=== PATIENT | male | born 1980 | race Caucasian/White ===

== ENCOUNTER 2020-01-14 14:58 | Observation (INO) ==
[2020-01-14] MEDS ORDERED: MoRPHine SULFATE 4 MG/ML 1 ML CARP\\VIAL IV STA (15:14)
[2020-01-14] MEDS ORDERED: ONDANSETRON INJ 2 MG/ML 2 ML VIAL IV STA (15:14)
[2020-01-14 15:38] LABS: Basophils # (auto) 0.02 K/uL (0-0.2); Basophils % (auto) 0.2 %; Eosinophils # (auto) 0.09 K/uL (0-0.5); Eosinophils % (auto) 0.7 %; Hematocrit (blood only) 33.9 % (42-52); Hemoglobin 11.6 g/dL (14.0-18.0); Immature Granulocytes # (auto) 0.04 K/uL (0.00-0.02); Immature Granulocytes % (auto) 0.3 %; Lymphocytes # (auto) 2.03 K/uL (1.2-3.4); Lymphocytes % (auto) 15.4 %; Mean Corpuscular Hemoglobin 29.4 pg (25-34); Mean Corpuscular Hgb Conc 34.2 g/dL (32-36); Mean Platelet Volume 12.5 fL (7.4-10.4); Monocytes # (auto) 0.75 K/uL (0.11-0.59); Monocytes % (auto) 5.7 %; Neutrophils # (auto) 10.21 K/uL (1.4-6.5); Neutrophils % (auto) 77.7 %; Platelet Count 207 K/uL (130-400); RDW Coefficient of Variation 12.2 % (11.5-14.5); RDW Standard Deviation 38.2 fL (36.4-46.3); Red Blood Count 3.94 M/uL (4.7-6.1); White Blood Count 13.14 K/uL (4.8-10.8)
[2020-01-14] MEDS ORDERED: SODIUM CHLORIDE 0.9% 1000ML 1,000 ML IV SCH (15:45)
[2020-01-14 16:05] LABS: Albumin Globulin Ratio 0.4 (0.9-2); Albumin Level 2.2 gm/dl (3.4-5.0); BUN Creatinine Ratio 10.8 (10-20); Bilirubin,Total 0.4 mg/dl (0.2-1); C Reactive Protein 13.1 mg/dl (0-0.29); Creatinine Clr Calc Pharmacy 46.9 ml/min; Est GFR (Non-African American) 24.1; Globulin 4.9 gm/dl (2.5-4.0); Potassium 4.9 mmol/L (3.5-5.1); Total Protein 7.1 gm/dl (6.4-8.2)
[2020-01-14 16:21] LABS: Beta-Hydroxybutyrate 2.04 mg/dl (0.2-2.81)
--- NOTE | 2020-01-14 17:21 | Ultrasound Report ---
US venous doppler LE LT CLINICAL HISTORY: Left leg redness pain and swelling COMPARISON STUDY: No previous studies for comparison. FINDINGS: Real-time and color flow Doppler imaging were performed. Flow was seen within the femoral, popliteal and calf veins with no intraluminal thrombus demonstrated. The saphenous vein is patent. IMPRESSION: No evidence of left lower extremity DVT. ACT 112: Negative or not required by law. Electronically signed by: Denton Patton M.D. 01/14/2020 5:20 PM
[2020-01-14] MEDS ORDERED: cefTRIAXone SODIUM 2,000 MG/70 ML BAG IV STA (17:26)
[2020-01-14] MEDS ORDERED: NovoLIN-R INSULIN PER UNIT CHARGE SC STA (17:26)
[2020-01-14] MEDS ORDERED: CEFEPIME 2,000 MG/20 ML VIAL IV STA (17:45)
[2020-01-14] MEDS ORDERED: GLUCOSE 40% GEL 15 GM TUBE PO PRN (18:45)
[2020-01-14] MEDS ORDERED: CARBOHYDRATES FOR HYPOGLYCEMIA PO PRN (18:45)
[2020-01-14] MEDS ORDERED: ACETAMINOPHEN 325 MG TAB PO PRN (18:45)
[2020-01-14] MEDS ORDERED: GLUCAGON FOR INJ 1 MG VIAL SQ PRN (18:45)
[2020-01-14] MEDS ORDERED: GLUCOSE 10 TABS/TUBE PO PRN (18:45)
[2020-01-14] MEDS ORDERED: MoRPHine SULFATE 2 MG/ML CARP IV PRN (18:45)
[2020-01-14] MEDS ORDERED: DEXTROSE 50% 50 ML SYRINGE IV PRN (18:45)
[2020-01-14] MEDS ORDERED: ONDANSETRON INJ 2 MG/ML 2 ML VIAL IV PRN (18:50)
[2020-01-14] MEDS ORDERED: ALPRAZolam 0.5 MG TABLET PO PRN (18:51)
[2020-01-14 19:13] LABS: Appearance Urine Clear (Clear); Bacteria Urine Automated Negative (Negative); Bilirubin Urine Negative (Negative); Blood Urine 1+ (Negative); Cast Urine Automated 0 /lpf (0-5); Color Urine Yellow; Epithelial Cell Urine Auto 0-5 /lpf (0-5); Glucose Urine UA 3+ (Negative); Ketones Urine Negative (Negative); Leukocyte Esterase Urine Negative (Negative); Nitrite Urine Negative (Negative); Protein Urine 3+ (Negative); RBC Urine Automated 0-4 /hpf (0-4); Specific Gravity Urine 1.024 (1.000-1.030); Urobilinogen Urine Negative (Negative)
--- NOTE | 2020-01-14 19:26 | History & Physical Report ---
Date of Service January 14, 2020 Assessment & Plan (1) Cellulitis of left lower extremity: Non purulent cellulitis of lower extremity involving dorsal aspect of foot. - elevated CRP with leukocytosis and N:L ratio 5:1, afebrile currently - Treat with vanc & cefepime 2 gm q12 - Continue to trend biomarkers and clinical assessment. Skin marked in EMD for borders. - Negative venous Doppler of LLE - Wound consult- consider podiatry consult upon discharge. Patient already involved with metal ceiling hanger as outpatient (2) Hyperlipidemia: Lipid panel in the morning, continue Atorvastatin 80 (3) HTN (hypertension): Controlled as outpatient on current regimen of amlodipine 10 mg PO QAM, Carvedilol 6.25 MG daily, lisinopril 40 mg at bedtime - fasting lipids in the morning (4) Uncontrolled type 2 diabetes mellitus: On insulin basal bolus at home. Continue medications with Pharmacy consult for assistance in managing. HGB A1C check in the morning as well as lipid profile. - Goal BG 120-180 - In EMD BG 475, treated with subq insulin, may need to add additional coverage to get to goal - Will not be opposed to insulin drip if needed to control during this infectious insult. - Carb steady diet - Patient may benefit for intensive weight control program, is actively being followed by diabetic counselor. (5) Morbid obesity with BMI of 45.0-49.9, adult: As above. Physical therapy for ambulation during cellulitis and use of cane as outpatient. (6) Diabetic nephropathy associated with type 2 diabetes mellitus: as above. Follow renal labs as well as HGBA1C - renally dose medications - Goal BG as above 120-180 - Avoid hypoglycemia VTE ppx: - teds, scds CODE: FULL Dispo: From home, likely to remain in the hospital x 1-2 days History of Present Illness Primary Care Provider: Lanny Guerrier 39 YOM with history of DM2, nephropathy, retinopathy, hyperlipidemia, morbid obesity, and poorly controlled type II diabetes on insulin therapy. Mr. Manzano came to the emergency room today for complaint of lower extremity tightness that began 2 days ago and progressed with increased redness and pain. Patient has had lower extremity cellulitis 2 other times in his life, most recently in March 2019. Other episodes not been this severe. The patient's also was experiencing fevers and chills at night, mildly controlled with Motrin and Tylenol. Patient has also noticed that his glucose has been reading higher than it normally does over the past two days. Patient follows with podiatry who recently debrided a left lateral plantar 5th metatarsal head blister/callous. Patient is not aware of any other trauma or injury that he sustained to the foot. There are no other open areas or nidus of infection noted. Patient was recently tested for COVID on JAN 09 where he had a colonoscopy performed for post prandial abdominal pain and frequent diarrhea, no longer having symptoms and results of colonoscopy were normal, however awaiting biopsy for evaluation of microscopic colitis. Allergies Allergy/AdvReac Type Severity Reaction Status Date / Time amoxicillin AdvReac Mild Gastrointestinal Verified 01/14/20 15:22 Upset Home Medications Home Medications Medication Instructions Recorded Confirmed Type amlodipine 10 mg PO QAM 04/08/19 01/14/20 History atorvastatin 80 mg PO QAM 04/08/19 01/14/20 History alprazolam 1 mg tablet 1 mg PO DAILY PRN 10/14/19 01/14/20 History bupropion HCl 150 mg tablet,12 hr 150 mg PO HS 10/14/19 01/14/20 History sustained-release blood sugar diagnostic #10 ea 12/01/19 01/14/20 History insulin glargine 100 unit/mL (3 80 unit SQ HS #2 box 12/01/19 01/14/20 Rx mL) subcutaneous pen lancets #100 ea 12/01/19 01/14/20 History pregabalin 100 mg capsule 100 mg PO BID 12/01/19 01/14/20 History carvedilol 6.25 mg PO QAM 01/04/20 01/14/20 History lisinopril 40 mg PO HS 01/04/20 01/14/20 History multivitamin 1 tab PO QAM 01/04/20 01/14/20 History amitriptyline 25 mg PO DAILY 01/14/20 01/14/20 History insulin aspart U-100 [Novolog 15 unit SUBCUT TIDM 01/14/20 01/14/20 History Flexpen U-100 Insulin] Past Med/Surg History Medical History (Updated 01/14/20 @ 19:33 by Homa Muñoz PA-C) Chronic diarrhea reason for colonoscopy Diabetic nephropathy associated with type 2 diabetes mellitus DM neuropathy, painful DM retinopathy Habitual snoring never had a sleep study test done Hidradenitis suppurativa HTN (hypertension) Hyperlipidemia Kidney stones Morbid obesity with BMI of 45.0-49.9, adult Obesity Uncontrolled type 2 diabetes mellitus Surgical History History of cardiac cath 2014 ?? 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 History of eye surgery left eye multiple before eye removal History of tooth extraction History of wisdom tooth extraction Status post epidural steroid injection Family History Mother No problems noted. 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 No diplopia, no worsening or blurred vision ENT: normal hearing, no trouble swallowing Respiratory: No cough, sputum, dyspnea at rest or on exertion, recent URI last month Cardiovascular: No chest pain, tightness or palpitations Abdomen: No pain, nausea, vomiting, diarrhea or constipation Musculoskeletal: + LT lower ext calf pain and tenderness, + LLE erythema and swelling. Neurologic: + Neuropathy up to bilateral knees, walks with cane. No weakneness. Psychiatric: No anxiety or depression Skin: No rash or itch Physical Exam Physical Exam: General: Morbidly Obese. awake, alert, no apparent distress Head: Normocephalic, atraumatic ENT: RT eye PERRL, EOMI, no pharyngeal exudate, mucous membranes moist Chest: difficult to assess secondary to body habitus clear to auscultation, on room air, Cardiac: difficult to assess secondary to body habitus regular rate and rhythm, no murmur, no JVD, normal peripheral pulses, good capillary refill Abdominal: NABS x 4 quadrants, obese soft rotund, nondistended, nontender to palpation, no rebound or guarding Extremities: Left lower extremity has pain, erythema and enlarged left lower extremity below the knee. Erythemic are was marked. All other extremities Normal inspection, no peripheral edema or erythema, calfs nontender to palpation Psych: Normal mood and affect Neuro: AAO x 3, strength intact bilaterally and rated 5/5, no motor deficits, speech is clear, no peripheral sensory deficits Results & Data Results & Data ([facility]) Vital Signs (Past 12 Hours) Vital Signs Temp Pulse Pulse Resp BP BP Pulse Ox 01/14/20 18:21 117 H 20 177/96 H 99 01/14/20 17:35 114 H 24 161/123 H 99 01/14/20 14:59 37 C 122 H 20 190/97 H 97 Diagnostic Findings US venous doppler LE LT CLINICAL HISTORY: Left leg redness pain and swelling COMPARISON STUDY: No previous studies for comparison. FINDINGS: Real-time and color flow Doppler imaging were performed. Flow was seen within the femoral, popliteal and calf veins with no intraluminal thrombus demonstrated. The saphenous vein is patent. IMPRESSION: No evidence of left lower extremity DVT. Code Status & VTE Plan Code Status FULL CODE VTE Prophylaxis Plan VTE Prophylaxis will be ordered: Yes Supervising Physician Co-Signing Physician Notes I supervised Krysten Muñoz PA-C on this patient's care. I examined the patient today independently of her. I discussed the plan of care with her with the plan being as written in her note except for any following changes/exceptions: None. 39yo M w/ DM and recurrent episodes of cellulitis on this foot. Last one in March 2019. Unfortunately doesn't remember what abx were used then. The foot has a small callus on the underside of the left foot. Erythema all the way up the [place], but no crepitus to indicate nec fasc. Abx as per DIONE's note. Area outlined. Will try to improve blood sugar control as well. PG Care Time/CCT Total # of Minutes Spent Total Time Spent with Patient: Total time spent is greater than 50% in coordination of care (as documented) at patient's floor/unit and/or counseling patient: Coding Level of Care Code 23690 OBS Care - Level 3 Diagnoses Cellulitis of left lower extremity L03.116 Hyperlipidemia E78.5 HTN (hypertension) I10 Uncontrolled type 2 diabetes mellitus E11.65 Morbid obesity with BMI of 45.0-49.9, adult E66.01; Z68.42 Diabetic nephropathy associated with type 2 diabetes mellitus E11.21
[2020-01-14] MEDS ORDERED: PHARMACY GLYCEMIC MGMT CONSULT PRN (20:06)
[2020-01-14] MEDS ORDERED: buPROPion SR 150 MG TABCR PO SCH (21:00)
[2020-01-14] MEDS ORDERED: VANCOMYCIN CONSULT ACTIVE PRN (21:23)
[2020-01-14] MEDS: MoRPHine SULFATE 4 MG/ML 1 ML CARP\\VIAL IV PRN (21:43)
[2020-01-14] MEDS: PREGABALIN 100 MG CAP PO SCH (21:47)
[2020-01-14] MEDS: lisinopril 40 MG TAB PO SCH (21:48)
[2020-01-14] MEDS: buPROPion XL 150 MG TABCR PO SCH (21:48)
[2020-01-14] MEDS ORDERED: INSULIN GLARGINE 100 UNIT/ML VIAL SC SCH (22:00)
[2020-01-14] MEDS: INSULIN ASPART 100 UNITS/ML 3 ML PEN SC SCH (22:09)
[2020-01-14] MEDS ORDERED: VANCOMYCIN HCL 2,500 MG in SODIUM CHLORIDE 0.9% 500 ML IV ONE (22:30)
--- NOTE | 2020-01-14 22:56 | Emergency Department Note ---
History of Present Illness General Chief complaint: Skin Problem Stated complaint: LEFT LEG CELLULITIS Time Seen by Provider: 01/14/20 15:03 History of Present Illness Maximum Pain Intensity: 3 This is a 39-year-old male that presents to the emergency department via private vehicle with complaints "left leg cellulitis". The patient notes a history of such, most recently in March of this past year. Patient notes that without known trauma or injury over the past 3 days he has been experiencing increased erythema and swelling to the left lower extremity. He notes this began in the anterior mid ankle/longoria region. He also notes recent debridement via podiatry of a callus overlying the left lateral fifth MTP joint region. Patient notes pretty significant diabetic neuropathy in the left lower extremity often limiting his sensation to pain or injury but does note that over the past few days the pain has been quite significant in the left lower extremity which she currently rates as an 8/10. Patient denies any chest pain or shortness of breath. He denies any history of DVT. Sugars have been elevated as of late. No recent antibiotic use. Home Medications Home Medications Medication Instructions Recorded Confirmed Type amlodipine 10 mg PO QAM 04/08/19 01/14/20 History atorvastatin 80 mg PO QAM 04/08/19 01/14/20 History alprazolam 1 mg tablet 1 mg PO DAILY PRN 10/14/19 01/14/20 History bupropion HCl 150 mg tablet,12 hr 150 mg PO HS 10/14/19 01/14/20 History sustained-release blood sugar diagnostic #10 ea 12/01/19 01/14/20 History insulin glargine 100 unit/mL (3 80 unit SQ HS #2 box 12/01/19 01/14/20 Rx mL) subcutaneous pen lancets #100 ea 12/01/19 01/14/20 History pregabalin 100 mg capsule 100 mg PO BID 12/01/19 01/14/20 History carvedilol 6.25 mg PO QAM 01/04/20 01/14/20 History lisinopril 40 mg PO HS 01/04/20 01/14/20 History multivitamin 1 tab PO QAM 01/04/20 01/14/20 History amitriptyline 25 mg PO DAILY 01/14/20 01/14/20 History insulin aspart U-100 [Novolog 15 unit SUBCUT TIDM 01/14/20 01/14/20 History Flexpen U-100 Insulin] Allergies Allergy/AdvReac Type Severity Reaction Status Date / Time amoxicillin AdvReac Mild Gastrointestinal Verified 01/14/20 15:22 Upset Past Med/Surg History Medical History Chronic diarrhea reason for colonoscopy Diabetic nephropathy associated with type 2 diabetes mellitus DM neuropathy, painful DM retinopathy Habitual snoring never had a sleep study test done Hidradenitis suppurativa HTN (hypertension) Hyperlipidemia Kidney stones Morbid obesity with BMI of 45.0-49.9, adult Obesity Uncontrolled type 2 diabetes mellitus Surgical History History of cardiac cath 2014 ?? 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 History of eye surgery left eye multiple before eye removal History of tooth extraction History of wisdom tooth extraction Status post epidural steroid injection Family History Mother No problems noted. 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 Beliefs That Will Affect Care: None marital status: Current Living Situation: Spouse current occupational status: employed Other Information That Helps Us Care for You: No Feels Safe at Home: Yes Safety Concerns: Feels Safe At This Time Assistive Devices: Cane Review of Systems A total of 10 systems reviewed and were otherwise negative Physical Exam Vital Signs Vital Signs - 24 hr 01/14/20 14:59 01/14/20 15:33 01/14/20 15:43 Temperature 37 C Temperature Source Oral Pulse Rate 122 H 121 H 121 H Pulse Rate [Left Finger] Pulse Rate from SpO2 Sensor 122 H 120 H Pulse Rhythm [Left Finger] Pulse Strength [Left Finger] Respiratory Rate 20 20 16 Respiratory Effort / Characteristics Non-Labored Spontaneous Respiratory Depth Normal Respiratory Pattern Regular Blood Pressure 190/97 H 136/108 H Blood Pressure [Left Arm] Blood Pressure Mean 128 118 Blood Pressure Mean [Left Arm] Blood Pressure Position Sitting Blood Pressure Position [Left Arm] Pulse Oximetry 97 98 98 Oxygen Delivery Method Room Air Sepsis Recent Fever Within 48 Hours No Sepsis New/Unexplained Change in Mental Status N/A Sepsis Action Taken by Nursing No Action Required 01/14/20 16:00 01/14/20 16:30 01/14/20 17:22 Temperature Temperature Source Pulse Rate 119 H 118 H 114 H Pulse Rate [Left Finger] Pulse Rate from SpO2 Sensor 119 H 118 H Pulse Rhythm [Left Finger] Pulse Strength [Left Finger] Respiratory Rate 25 H 20 16 Respiratory Effort / Characteristics Respiratory Depth Respiratory Pattern Blood Pressure Blood Pressure [Left Arm] Blood Pressure Mean Blood Pressure Mean [Left Arm] Blood Pressure Position Blood Pressure Position [Left Arm] Pulse Oximetry 95 95 Oxygen Delivery Method Sepsis Recent Fever Within 48 Hours Sepsis New/Unexplained Change in Mental Status Sepsis Action Taken by Nursing 01/14/20 17:23 01/14/20 17:30 01/14/20 17:31 Temperature Temperature Source Pulse Rate 113 H 113 H 112 H Pulse Rate [Left Finger] Pulse Rate from SpO2 Sensor 227 H 228 H 227 H Pulse Rhythm [Left Finger] Pulse Strength [Left Finger] Respiratory Rate 21 26 H 27 H Respiratory Effort / Characteristics Respiratory Depth Respiratory Pattern Blood Pressure 178/106 H 191/97 H Blood Pressure [Left Arm] Blood Pressure Mean 123 130 Blood Pressure Mean [Left Arm] Blood Pressure Position Blood Pressure Position [Left Arm] Pulse Oximetry 97 98 97 Oxygen Delivery Method Sepsis Recent Fever Within 48 Hours Sepsis New/Unexplained Change in Mental Status Sepsis Action Taken by Nursing 01/14/20 17:34 01/14/20 17:35 01/14/20 18:00 Temperature Temperature Source Pulse Rate 116 H 125 H Pulse Rate [Left Finger] 114 H Pulse Rate from SpO2 Sensor 233 H Pulse Rhythm [Left Finger] Pulse Strength [Left Finger] Respiratory Rate 18 24 Respiratory Effort / Characteristics Non-Labored Respiratory Depth Normal Respiratory Pattern Blood Pressure 161/123 H Blood Pressure [Left Arm] 161/123 H Blood Pressure Mean 143 Blood Pressure Mean [Left Arm] 135 Blood Pressure Position Blood Pressure Position [Left Arm] Pulse Oximetry 98 99 Oxygen Delivery Method Room Air Sepsis Recent Fever Within 48 Hours Sepsis New/Unexplained Change in Mental Status Sepsis Action Taken by Nursing 01/14/20 18:21 01/14/20 18:24 01/14/20 18:30 Temperature Temperature Source Pulse Rate 119 H 121 H Pulse Rate [Left Finger] 117 H Pulse Rate from SpO2 Sensor Pulse Rhythm [Left Finger] Regular Pulse Strength [Left Finger] Normal Respiratory Rate 20 25 H 27 H Respiratory Effort / Characteristics Non-Labored Spontaneous Respiratory Depth Normal Respiratory Pattern Blood Pressure 177/96 H Blood Pressure [Left Arm] 177/96 H Blood Pressure Mean 104 Blood Pressure Mean [Left Arm] 123 Blood Pressure Position Blood Pressure Position [Left Arm] Lying Pulse Oximetry 99 Oxygen Delivery Method Room Air Sepsis Recent Fever Within 48 Hours Sepsis New/Unexplained Change in Mental Status Sepsis Action Taken by Nursing 01/14/20 18:31 Temperature Temperature Source Pulse Rate 121 H Pulse Rate [Left Finger] Pulse Rate from SpO2 Sensor Pulse Rhythm [Left Finger] Pulse Strength [Left Finger] Respiratory Rate 16 Respiratory Effort / Characteristics Respiratory Depth Respiratory Pattern Blood Pressure 173/109 H Blood Pressure [Left Arm] Blood Pressure Mean 128 Blood Pressure Mean [Left Arm] Blood Pressure Position Blood Pressure Position [Left Arm] Pulse Oximetry Oxygen Delivery Method Sepsis Recent Fever Within 48 Hours Sepsis New/Unexplained Change in Mental Status Sepsis Action Taken by Nursing VITAL SIGNS - Vital signs and nursing notes were reviewed. On arrival the patient is hypertensive, tachycardic and afebrile. GENERAL -39-year-old male appearing his stated age who is in no acute distress but appears mildly diaphoretic and in pain. Communicates well with provider and answers questions appropriately. SKIN -just inferior to the patient's left knee tracking to words the toes there is circumferential diffuse erythema and edema. There is a small amount of peeling skin to the left lateral foot, specifically overlying the left fifth MTP joint. No purulence. The left calf is significantly edematous compared to the right. No evidence of compartment syndrome. HEAD - NC/AT. EYES - PERRL with EOMI bilaterally. LUNGS - Chest wall symmetric without accessory muscle use, intercostals retractions, or central cyanosis. Normal vesicular breath sounds CTA B/L. No wheezes, rales, or rhonchi appreciated. CARDIAC -tachycardic with S1/S2. No murmur, rubs, or gallops appreciated. EXTREMITIES - No clubbing or peripheral cyanosis. Skin as above. Circum ferential erythema, edema to the patient's left lower extremity just below the left knee. He is tender throughout the erythema of the left lower extremity. No drainage. No fluctuance. No crepitus. No evidence of necrotizing fasciitis. No regions of decreased blood flow. +5/5 strength noted in UE/LE bilaterally. NEUROLOGIC - Cranial nerves II through XII grossly intact. Patient is sensory i ntact to light touch throughout the left lower extremity at this time. PSYCH - A&Ox3 and cooperates fully with examiner. Pt is very pleasant and interacts well with examiner. Course Administered Medications Bupropion HCl (Bupropion Xl 150 Mg Tabcr) 150 mg PO HS MELISSA Stop: 02/13/20 20:59 Last Admin: 01/14/20 21:48 Dose: 150 mg Documented by: [id number] Insulin Aspart (Insulin Aspart 100 Units/Ml 3 Ml Pen) 0 units SC ACHS MELISSA Stop: 02/13/20 20:59 Last Admin: 01/14/20 22:09 Dose: 29 units Documented by: [id number] Cosigned by: [id number] Insulin Aspart (Insulin Aspart 100 Units/Ml 3 Ml Pen) 0 units SC 0000,0400 MELISSA Stop: 01/15/20 04:01 Last Admin: 01/15/20 00:23 Dose: 14 units Documented by: [id number] Cosigned by: [id number] Lisinopril (Lisinopril 40 Mg Tab) 40 mg PO HS MELISSA Stop: 02/13/20 20:59 Last Admin: 01/14/20 21:48 Dose: 40 mg Documented by: [id number] Morphine Sulfate (Morphine Sulfate 4 Mg/Ml 1 Ml Carp\\Vial) 4 mg IV Q2H PRN PRN Reason: Pain Stop: 01/28/20 18:44 Last Admin: 01/14/20 21:43 Dose: 4 mg Documented by: [id number] Pregabalin (Pregabalin 100 Mg Cap) 100 mg PO BID MELISSA Stop: 02/13/20 20:59 Last Admin: 01/14/20 21:47 Dose: 100 mg Documented by: [id number] Discontinued Medications Sodium Chloride (Nss 1000ml) 1,000 mls @ 999 mls/hr IV .Q1H1M MELISSA Stop: 01/14/20 16:45 Last Infusion: 01/14/20 18:41 Dose: 0 mls/hr Documented by: [id number] Admin: 01/14/20 16:19 Dose: 999 mls/hr Documented by: [id number] Ceftriaxone Sodium (Rocephin) 2,000 mg in 70 mls @ 140 mls/hr IV NOW STA Stop: 01/14/20 17:55 Last Admin: 01/14/20 18:20 Dose: Not Given Documented by: [id number] Cefepime HCl (Maxipime) 2,000 mg in 20 mls @ 5 mls/min IV NOW STA; Protocol Stop: 01/14/20 17:48 Last Admin: 01/14/20 18:20 Dose: 5 mls/min Documented by: [id number] Vancomycin HCl 2,500 mg/ (Sodium Chloride) 550 mls @ 200 mls/hr IV NOW ONE Stop: 01/15/20 01:14 Last Admin: 01/14/20 22:58 Dose: 200 mls/hr Documented by: [id number] Insulin Glargine (Insulin Glargine 100 Unit/Ml Vial) 80 units SC HS [facility] Stop: 01/14/20 23:59 Last Admin: 01/14/20 21:48 Dose: 80 units Documented by: [id number] Cosigned by: [id number] Insulin Human Regular (Novolin-R Insulin Per Unit Charge) 10 units SC NOW STA Stop: 01/14/20 17:27 Last Admin: 01/14/20 18:16 Dose: 10 units Documented by: [id number] Cosigned by: [id number] Morphine Sulfate (Morphine Sulfate 4 Mg/Ml 1 Ml Carp\\Vial) 4 mg IV NOW STA Stop: 01/14/20 15:15 Last Admin: 01/14/20 15:33 Dose: 4 mg Documented by: [id number] Ondansetron HCl (Ondansetron Inj 2 Mg/Ml 2 Ml Vial) 4 mg IV NOW STA Stop: 01/14/20 15:15 Last Admin: 01/14/20 15:33 Dose: 4 mg Documented by: [id number] Medical Decision Making Laboratory Data Result diagrams: 01/14/20 15:25 01/14/20 15:25 Lab Results 01/14/20 01/14/20 01/14/20 Range/Units 15:25 15:25 15:25 WBC 13.14 H (4.8-10.8) K/uL RBC 3.94 L (4.7-6.1) M/uL Hgb 11.6 L (14.0-18.0) g/dL Hct 33.9 L (42-52) % MCV 86.0 (80-100) fL MCH 29.4 (25-34) pg MCHC 34.2 (32-36) g/dL RDW Std Deviation 38.2 (36.4-46.3) fL RDW Coeff of Nicky 12.2 (11.5-14.5) % Plt Count 207 (130-400) K/uL MPV 12.5 H (7.4-10.4) fL Immature Gran % (Auto) 0.3 % Neut % (Auto) 77.7 % Lymph % (Auto) 15.4 % Casey % (Auto) 5.7 % Eos % (Auto) 0.7 % Baso % (Auto) 0.2 % Neut # (Auto) 10.21 H (1.4-6.5) K/uL Lymph # (Auto) 2.03 (1.2-3.4) K/uL Casey # (Auto) 0.75 H (0.11-0.59) K/uL Eos # (Auto) 0.09 (0-0.5) K/uL Baso # (Auto) 0.02 (0-0.2) K/uL Immature Gran # (Auto) 0.04 H (0.00-0.02) K/uL ESR 65 H (0-14) mm/hr Sodium (136-145) mmol/L Potassium (3.5-5.1) mmol/L Chloride (98-107) mmol/L Carbon Dioxide (21-32) mmol/L Anion Gap (3-11) BUN (7-18) mg/dl Creatinine (0.6-1.4) mg/dl Est Cr Clr Drug Dosing ml/min Est GFR ( Amer) Est GFR (Non-Af Amer) BUN/Creatinine Ratio (10-20) Glucose (70-99) mg/dl Lactate 1.4 (0.4-2.0) mmol/L Calcium (8.5-10.1) mg/dl Total Bilirubin (0.2-1) mg/dl AST (15-37) U/L ALT (12-78) U/L Alkaline Phosphatase (45-117) U/L C-Reactive Protein (0-0.29) mg/dl Total Protein (6.4-8.2) gm/dl Albumin (3.4-5.0) gm/dl Globulin (2.5-4.0) gm/dl Albumin/Globulin Ratio (0.9-2) Beta-Hydroxybutyric Acd (0.2-2.81) mg/dl Procalcitonin (0-0.5) ng/ml 01/14/20 01/14/20 Range/Units 15:25 15:25 WBC (4.8-10.8) K/uL RBC (4.7-6.1) M/uL Hgb (14.0-18.0) g/dL Hct (42-52) % MCV (80-100) fL MCH (25-34) pg MCHC (32-36) g/dL RDW Std Deviation (36.4-46.3) fL RDW Coeff of Nicky (11.5-14.5) % Plt Count (130-400) K/uL MPV (7.4-10.4) fL Immature Gran % (Auto) % Neut % (Auto) % Lymph % (Auto) % Casey % (Auto) % Eos % (Auto) % Baso % (Auto) % Neut # (Auto) (1.4-6.5) K/uL Lymph # (Auto) (1.2-3.4) K/uL Casey # (Auto) (0.11-0.59) K/uL Eos # (Auto) (0-0.5) K/uL Baso # (Auto) (0-0.2) K/uL Immature Gran # (Auto) (0.00-0.02) K/uL ESR (0-14) mm/hr Sodium 132 L (136-145) mmol/L Potassium 4.9 (3.5-5.1) mmol/L Chloride 100 (98-107) mmol/L Carbon Dioxide 26 (21-32) mmol/L Anion Gap 7.0 (3-11) BUN 33 H (7-18) mg/dl Creatinine 3.09 H (0.6-1.4) mg/dl Est Cr Clr Drug Dosing 46.9 ml/min Est GFR ( Amer) 28.0 Est GFR (Non-Af Amer) 24.1 BUN/Creatinine Ratio 10.8 (10-20) Glucose 475 H* (70-99) mg/dl Lactate (0.4-2.0) mmol/L Calcium 8.0 L (8.5-10.1) mg/dl Total Bilirubin 0.4 (0.2-1) mg/dl AST 18 (15-37) U/L ALT 22 (12-78) U/L Alkaline Phosphatase 103 (45-117) U/L C-Reactive Protein 13.10 H (0-0.29) mg/dl Total Protein 7.1 (6.4-8.2) gm/dl Albumin 2.2 L (3.4-5.0) gm/dl Globulin 4.9 H (2.5-4.0) gm/dl Albumin/Globulin Ratio 0.4 L (0.9-2) Beta-Hydroxybutyric Acd 2.04 (0.2-2.81) mg/dl Procalcitonin 0.16 (0-0.5) ng/ml Imaging Data Radiologist's Impression: US venous doppler LE LT CLINICAL HISTORY: Left leg redness pain and swelling COMPARISON STUDY: No previous studies for comparison. FINDINGS: Real-time and color flow Doppler imaging were performed. Flow was seen within the femoral, popliteal and calf veins with no intraluminal thrombus demonstrated. The saphenous vein is patent. IMPRESSION: No evidence of left lower extremity DVT. ACT 112: Negative or not required by law. Electronically signed by: Denton Patton M.D. 01/14/2020 5:20 PM [facility] Narrative Patient was seen and evaluated as above in room C1. Review was performed of nursing notes and vital signs. I did review pertinent previous visits and patient history. After obtaining a thorough history and physical examination the above work up was performed. Patient presents to us today with what appears to be 3 days of left lower extremity cellulitis. He is nontoxic on examination but is tachycardic and mildly diaphoretic. Patient is hypertensive. IV access was established. Labs were drawn. Blood cultures were ordered. Ultrasound was obtained to rule out DVT and was negative. There is mild leukocytosis at 13.14 with hemoglobin at 11.6. There is significant elevation of the patient's ESR and CRP at 65 as well as 13.10 respectively. Patient glucose on arrival was elevated at 475. 10 units of subcu insulin regular was ordered and this will need to be closely watched and titrated throughout his stay and is likely elevated beyond his normal secondary to infection. Mild hypocalcemia at 8.0. Urinalysis does not suggest infection but does reveal 3+ glucose and 3+ protein. Patient does have BJ with creatinine now 3.09 with BUN at 33. He was hydrated here with a liter of normal saline. He was medicated with IV morphine for pain and Zofran for any potential nausea. He was started on empiric 2 g of cefepime IV to cover underlying organisms most likely to be the etiology of this cellulitis and also to cover for any Pseudomonas noting the patient's diabetic and this could have certainly originated from the foot. Patient will require further evaluation and management in the inpatient setting noting his impressive cellulitis with abnormal vital signs in the setting of BJ. Case discussed with the attending physician as well as the hospitalist. Please refer to further documentation regarding his stay. Case was discussed with the attending physician. In the evaluation and treatment of this patient the following differential diagnoses were entertained: Cellulitis, necrotizing fasciitis, abscess, tenosynovitis, septic arthritis, gout, pseudogout, sepsis, bacteremia, among others. Impression & Plan Cellulitis of left lower extremity, Tachycardia, BJ (acute kidney injury), Hyperglycemia Discharge Plan Visit Data Chief Complaint: Skin Problem Stated Complaint: LEFT LEG CELLULITIS ED Provider: Breezy [facility] ED Midlevel Provider: Shlomo Duval Discharge Problem: Cellulitis of left lower extremity, Tachycardia, BJ (acute kidney injury), Hyperglycemia Patient Disposition: Admitted As Inpatient Condition: Good Discharge Instructions Interventions: ED Discharge Assessment Last Done: 01/14/20 20:00
[2020-01-15] MEDS: INSULIN ASPART 100 UNITS/ML 3 ML PEN SC SCH ×6 (00:23→21:43)
[2020-01-15] MEDS: MoRPHine SULFATE 4 MG/ML 1 ML CARP\\VIAL IV PRN ×2 (03:24→11:41)
[2020-01-15] MEDS: CEFEPIME 2,000 MG in SYRINGE 0 ML IV SCH ×2 (05:54→18:04)
[2020-01-15 06:52] LABS: Hematocrit (blood only) 32.1 % (42-52); Hemoglobin 10.7 g/dL (14.0-18.0); Mean Corpuscular Hemoglobin 29.1 pg (25-34); Mean Corpuscular Hgb Conc 33.3 g/dL (32-36); Mean Corpuscular Volume 87.2 fL (80-100); Mean Platelet Volume 12.2 fL (7.4-10.4); Platelet Count 204 K/uL (130-400); RDW Coefficient of Variation 12.3 % (11.5-14.5); RDW Standard Deviation 39.3 fL (36.4-46.3); Red Blood Count 3.68 M/uL (4.7-6.1); White Blood Count 13.88 K/uL (4.8-10.8)
[2020-01-15 07:32] LABS: Calcium 8.3 mg/dl (8.5-10.1); Creatinine Clr Calc Pharmacy 53.7 ml/min; Est GFR (African American) 30.8; Est GFR (Non-African American) 26.6; Magnesium 1.7 mg/dl (1.8-2.4)
[2020-01-15] MEDS ORDERED: INSULIN ASPART 100 UNITS/ML 3 ML PEN SQ SCH (08:00)
--- NOTE | 2020-01-15 08:10 | Hospitalist Progress Note ---
Date of Service January 15, 2020 Assessment & Plan (1) Cellulitis of left lower extremity: - Non purulent cellulitis of lower extremity involving dorsal aspect of foot. - elevated CRP with leukocytosis and N:L ratio 5:1, afebrile currently - Treat with vanc & cefepime 2 gm q12 - Continue to trend biomarkers and clinical assessment. Skin marked for border - improving - Negative venous Doppler of LLE - Wound consult- consider podiatry consult upon discharge. Patient already involved with telesales supervisor as outpatient (2) Hyperlipidemia: - continue Atorvastatin 80 - Noted triglyceride of 758, cholesterol total 235 - Diet and exercise discussed at bedside. (3) HTN (hypertension): - Controlled as outpatient on current regimen of amlodipine 10 mg PO QAM, Carvedilol 6.25 MG daily, lisinopril 40 mg at bedtime - fasting lipids in the morning (4) Uncontrolled type 2 diabetes mellitus: - On insulin basal bolus at home. Continue medications with Pharmacy consult for assistance in managing. HGB A1C pending, has been around 12 in the past. - Goal BG 120-180 - In EMD BG 475, improved to 180-200s this morning. - Will not be opposed to insulin drip if needed to control during this infectious insult. - Carb steady diet - Patient may benefit for intensive weight control program, is actively being followed by diabetic counselor. (5) Morbid obesity with BMI of 45.0-49.9, adult: - As above. Physical therapy for ambulation during cellulitis and use of cane as outpatient. (6) Diabetic nephropathy associated with type 2 diabetes mellitus: - as above. Follow renal labs as well as HGBA1C - renally dose medications - Goal BG as above 120-180 - Avoid hypoglycemia VTE ppx: - teds, scds CODE: FULL Dispo: From home, likely to remain in the hospital x 24 more hours Admission and Anticipated Discharge Date Admission Date: January 14, 2020 Subjective The patient was seen and examined this morning. Pt states swelling, pain and redness are improved. He slept well overnight. Denies fever, chills or sweats. Has tolerated oral intake without difficulty. Able to put more weight on the foot with moderate pain. Cannot recall the name of his telesales supervisor, asked to see if he can find her name and let the team know. Review of Systems Review of Systems: Constitutional: no fever, sweats or chills, +morbid obesity Eyes: +left eye prosthesis, glasses. No diplopia, no worsening or blurred vision ENT: normal hearing, no trouble swallowing Respiratory: No cough, sputum, dyspnea at rest or on exertion, recent URI last month Cardiovascular: No chest pain, tightness or palpitations Abdomen: No pain, nausea, vomiting, diarrhea or constipation Musculoskeletal: + LT lower ext calf pain and tenderness, + LLE erythema and swelling improving Neurologic: + Neuropathy up to bilateral knees, walks with cane. No weakness. Psychiatric: No anxiety or depression Skin: No rash or itch Physical Exam Physical Exam: General: Morbidly Obese. awake, alert, no apparent distress Head: Normocephalic, atraumatic ENT: RT eye PERRL, EOMI, no pharyngeal exudate, mucous membranes moist Chest: difficult to assess secondary to body habitus clear to auscultation, on room air, Cardiac: difficult to assess secondary to body habitus regular rate and rhythm, no murmur, no JVD, normal peripheral pulses, good capillary refill Abdominal: NABS x 4 quadrants, obese soft rotund, nondistended, nontender to palpation, no rebound or guarding Extremities: Left lower extremity has pain, erythema and enlarged left lower extremity below the knee. Erythemic area marked, improved compared to the border. All other extremities normal inspection, no peripheral edema or erythema, calfs nontender to palpation Psych: Normal mood and affect Neuro: AAO x 3, strength intact bilaterally and rated 5/5, no motor deficits, speech is clear, no peripheral sensory deficits Results & Data Results & Data ([facility]) Vital Signs (Past 12 Hours) Vital Signs Temp Pulse Resp BP BP Pulse Ox 01/15/20 07:32 37.1 C 112 H 20 148/85 H 92 01/14/20 23:19 37.8 C H 125 H 20 149/91 H 92 01/14/20 20:37 37.1 C 126 H 20 180/109 H 97 PG Care Time/CCT Total # of Minutes Spent Total Time Spent with Patient: Total time spent is greater than 50% in coordination of care (as documented) at patient's floor/unit and/or counseling patient: Coding Level of Care Code 84659 Subseq Hosp Care Lvl 3 Diagnoses Cellulitis of left lower extremity L03.116 Hyperlipidemia E78.5 HTN (hypertension) I10 Uncontrolled type 2 diabetes mellitus E11.65 Morbid obesity with BMI of 45.0-49.9, adult E66.01; Z68.42 Diabetic nephropathy associated with type 2 diabetes mellitus E11.21
[2020-01-15] MEDS ORDERED: MAGNESIUM SULFATE / D5W 1 GM/100 ML BAG IV ONE (08:30)
[2020-01-15 08:32] LABS: Potassium 4.1 mmol/L (3.5-5.1)
--- NOTE | 2020-01-15 08:42 | Pharmacy Report ---
Glycemic Control Consultation - Date of Service January 15, 2020 - Scope Scope: Glycemic Pharmacist consulted for glycemic control and to write orders per [facility] inpatient glycemic control protocol. - Objective Weight: 156.489 kg Accuchecks BSG (last 24hrs): 01/14/20 01/14/20 01/14/20 15:25 19:27 20:55 Glucose 475 H* POC Glucose 369 H* 341 H* 01/14/20 01/15/20 01/15/20 20:59 00:05 04:09 Glucose POC Glucose 320 H* 285 H 207 H 01/15/20 01/15/20 06:38 08:29 Glucose 180 H POC Glucose 216 H Laboratory Data (last 24hrs): 01/14/20 01/15/20 15:25 06:38 Potassium 4.9 4.1 D Carbon Dioxide 26 23 Anion Gap 7.0 6.0 Creatinine 3.09 H 2.85 H Est Cr Clr Drug Dosing 46.9 53.7 Beta-Hydroxybutyric Acd 2.04 - Recent Pertinent Medications Outpatient Anti-diabetic Regimen: * Insulin glargine 80 units HS * Novolog 15 units TID * A1c = 12.7 % 11/25/19 The patient is currently receiving: * Basal insulin: Lantus 80 units every 24 hours * Correctional Insulin: Novolog Correction per scale ACHS Goal Range: Low 120 mg/dL - High 150 mg/dL Correction Factor: 10 mg/dL/unit * Regular insulin 10 units SQ x1 last evening * Prandial insulin: Per carb ratio of 1 unit per 4 grams CHO consumed Risk Factors for Insulin Resistance: * Infection: IV Vancomycin & Cefepime for cellulitis * Diet: Type 2 DM - Assessment & Plan Assessment & Plan: ASSESSMENT: * 39 year old morbid obese male admitted for cellulitis. * Uncontrolled type 2 diabetic on insulin as outpatient. * Hyperglycemic on admission, blood sugars coming down to goal with ~129 units of SQ insulin over past 12 hours. * Will continue using patient's outpatient basal dose and tight CF/CR at this time and titrate to goal. * ADA & AACE recommend a goal blood sugar range 140-180 mg/dl for the majority of critically ill & non-critically ill patients. However, more stringent targets may be selected in individual cases. Will utilize more stringent goal of 110-140mg/dl based on patient age & comorbidities. Additionally, tighter glycemic control is warranted to facilitate wound/infection healing. PLAN FOR INPATIENT GLYCEMIC CONTROL: * Basal insulin * Lantus 80 units SQ HS * Bolus insulin * NovoLog per scale ACHS or Q6hrs while NPO * Goal Range: Low 110 mg/dL - High 140 mg/dL * Correction Factor: 10 mg/dL/unit * Nutritional / Prandial insulin per carb ratio of 1 unit per 3 grams CHO consumed * Please note that the plan above was derived based on current level of insulin resistance and hospital stress. These recommendations are appropriate for inpatient admission only. Plan of care upon discharge will need to be reassessed to avoid potential outpatient hypo/hyperglycemia. Thank you.
--- NOTE | 2020-01-15 08:44 | Pharmacy Report ---
Pharmacy Abx Dose Short Note - Date of Service January 15, 2020 - Assessment & Plan Assessment 39 year old M receiving Vancomycin for treatment of cellulitis. Day # 2 of antimicrobial therapy. * Blood cultures pending. * Baseline SCr unknown, appears to be around 2mg/dL? currently elevated at 2.85mg/dL today. * Pt has history of uncontrolled DM and morbid obesity. BMI=46.8kg. * Both unstable renal function and morbid obesity make it challenging to accurately dose vancomycin. Dosing per level for now. Plan Vancomycin for treatment of LLE cellulitis. Vancomycin IV * Estimated PK Parameters: Vd 0.5 L/kg, Ramakrishna 0.049 hr-1, t1/2 14 hr (these estimates are most likely inaccurate given unstable renal function.) * Loading dose: 2500 mg (16 mg/kg) given @2300 on 01/13. * Random level this am was 18.6. * Ordered 2000 mg IV (12.8 mg/kg) x 1 for 1000 today. * Goal trough level for cellulitis : 10 to 15 mcg/mL * Random level ordered for 01/16/20 with am labs since clin calc is recommending q24 hour dosing. Concerned pt will accumulate drug if ordered a scheduled dose. Pt also on cefepime 2gm q12h. Pharmacy will continue to follow and will adjust dose/frequency as necessary. Thank you.
[2020-01-15] MEDS: AMITRIPTYLINE HCL 25 MG TAB PO SCH (09:07)
[2020-01-15] MEDS: ATORVASTATIN 40 MG TAB PO SCH (09:07)
[2020-01-15] MEDS: MULTIVITAMIN TAB PO SCH (09:07)
[2020-01-15] MEDS: ENOXAPARIN INJ 40 MG/0.4 ML SYR SQ SCH (09:07)
[2020-01-15] MEDS: amLODIPine BESYLATE 5 MG TAB PO SCH (09:08)
[2020-01-15] MEDS: carvediloL 6.25 MG TAB PO SCH (09:08)
[2020-01-15] MEDS ORDERED: MAGNESIUM SULFATE / D5W 1 GM/100 ML BAG IV SCH (09:15)
[2020-01-15] MEDS: PREGABALIN 100 MG CAP PO SCH ×2 (09:17→20:11)
[2020-01-15] MEDS ORDERED: VANCOMYCIN HCL 2,000 MG in SODIUM CHLORIDE 0.9% 500 ML IV ONE (10:00)
[2020-01-15 11:47] LABS: Ferritin 441.7 ng/ml (8-388)
[2020-01-15 11:54] LABS: Folate (Folic Acid) 20.48 ng/ml (>5.38)
[2020-01-15] MEDS: buPROPion XL 150 MG TABCR PO SCH (20:11)
[2020-01-15] MEDS: lisinopril 40 MG TAB PO SCH (20:11)
[2020-01-15] MEDS ORDERED: INSULIN GLARGINE 100 UNIT/ML VIAL SC SCH (21:00)
[2020-01-16] MEDS: CEFEPIME 2,000 MG in SYRINGE 0 ML IV SCH (05:37)
[2020-01-16 06:19] LABS: Estimated Average Glucose 355 mg/dl
[2020-01-16 07:47] LABS: Hemoglobin 10.5 g/dL (14.0-18.0); Mean Corpuscular Hemoglobin 28.6 pg (25-34); Mean Corpuscular Hgb Conc 31.8 g/dL (32-36); Mean Corpuscular Volume 89.9 fL (80-100); Mean Platelet Volume 12.5 fL (7.4-10.4); Platelet Count 237 K/uL (130-400); RDW Coefficient of Variation 12.4 % (11.5-14.5); RDW Standard Deviation 40.4 fL (36.4-46.3); Red Blood Count 3.67 M/uL (4.7-6.1); White Blood Count 10.57 K/uL (4.8-10.8)
[2020-01-16 08:13] LABS: Creatinine Clr Calc Pharmacy 53.7 ml/min; Est GFR (African American) 30.8; Est GFR (Non-African American) 26.6; Magnesium 2.2 mg/dl (1.8-2.4)
[2020-01-16] MEDS: ATORVASTATIN 40 MG TAB PO SCH (09:22)
[2020-01-16] MEDS: MULTIVITAMIN TAB PO SCH (09:22)
[2020-01-16] MEDS: PREGABALIN 100 MG CAP PO SCH (09:22)
[2020-01-16] MEDS: amLODIPine BESYLATE 5 MG TAB PO SCH (09:22)
[2020-01-16] MEDS: carvediloL 6.25 MG TAB PO SCH (09:22)
[2020-01-16] MEDS: ENOXAPARIN INJ 40 MG/0.4 ML SYR SQ SCH (09:23)
[2020-01-16] MEDS: AMITRIPTYLINE HCL 25 MG TAB PO SCH (09:23)
[2020-01-16] MEDS: INSULIN ASPART 100 UNITS/ML 3 ML PEN SC SCH ×2 (09:26→12:49)
--- NOTE | 2020-01-16 10:18 | Pharmacy Report ---
Pharmacy Abx Dose Short Note - Date of Service January 16, 2020 - Assessment & Plan Assessment 39 year old M receiving vancomycin and cefepime for cellulitis Day # 3 of antimicrobial therapy. Plan Vancomycin * Random level came back therapeutic at ~19 mcg/ml (goal ~15 mcg/ml for cellulitis) * Plan to continue with vancomycin 2000 mg iv daily. Estimated t1/2~15 hrs, ke~0.04, CrCl ~53 * Due to elevated BMI, anticipate some accumulation with vancomycin dosing. Will monitor closely and obtain level as necessary. If plan is to continue IV abx's, may consider switch to daptomycin Pharmacy will continue to follow and will adjust dose/frequency as necessary. Thank you.
--- NOTE | 2020-01-16 10:23 | Electrocardiogram Report ---
Test Reason : Blood Pressure : / mmHG Vent. Rate : 106 BPM Atrial Rate : 106 BPM P-R Int : 180 ms QRS Dur : 110 ms QT Int : 356 ms P-R-T Axes : 044 -31 112 degrees QTc Int : 472 ms Sinus tachycardia Incomplete left bundle block Left axis deviation Minimal voltage criteria for LVH, may be normal variant ( [place] product ) Septal infarct , age undetermined , may be due to incomplete LBBB T wave abnormality, consider lateral ischemia Abnormal ECG No previous ECGs available Confirmed by Jc Villagomez ([id number]) on 01/16/2020 10:22:52 AM Referred By: REFERRED SELF Confirmed By:Jc Villagomez
[2020-01-16] MEDS ORDERED: VANCOMYCIN HCL 2,000 MG in SODIUM CHLORIDE 0.9% 500 ML IV SCH (12:00)
--- NOTE | 2020-01-16 16:08 | Discharge Summary ---
Date of Service January 16, 2020 Admission HPI Per Admitting Provider 39 YOM with history of DM2, nephropathy, retinopathy, hyperlipidemia, morbid obesity, and poorly controlled type II diabetes on insulin therapy. Mr. Manzano came to the emergency room today for complaint of lower extremity tightness that began 2 days ago and progressed with increased redness and pain. Patient has had lower extremity cellulitis 2 other times in his life, most recently in March 2019. Other episodes not been this severe. The patient's also was experiencing fevers and chills at night, mildly controlled with Motrin and Tylenol. Patient has also noticed that his glucose has been reading higher than it normally does over the past two days. Patient follows with podiatry who recently debrided a left lateral plantar 5th metatarsal head blister/callous. Patient is not aware of any other trauma or injury that he sustained to the foot. There are no other open areas or nidus of infection noted. Patient was recently tested for COVID on JAN 09 where he had a colonoscopy performed for post prandial abdominal pain and frequent diarrhea, no longer having symptoms and results of colonoscopy were normal, however awaiting biopsy for evaluation of microscopic colitis. Admission Exam Per Admitting Provider General: Morbidly Obese. awake, alert, no apparent distress Head: Normocephalic, atraumatic ENT: RT eye PERRL, EOMI, no pharyngeal exudate, mucous membranes moist Chest: difficult to assess secondary to body habitus clear to auscultation, on room air, Cardiac: difficult to assess secondary to body habitus regular rate and rhythm, no murmur, no JVD, normal peripheral pulses, good capillary refill Abdominal: NABS x 4 quadrants, obese soft rotund, nondistended, nontender to palpation, no rebound or guarding Extremities: Left lower extremity has pain, erythema and enlarged left lower extremity below the knee. Erythemic are was marked. All other extremities Normal inspection, no peripheral edema or erythema, calfs nontender to palpation Psych: Normal mood and affect Neuro: AAO x 3, strength intact bilaterally and rated 5/5, no motor deficits, speech is clear, no peripheral sensory deficits Principal Diagnosis LLE Cellulitis Discharge Exam Constitutional WD/WN, vitals as above + obese Respiratory normal respiratory effort, lungs clear to auscultation Cardiovascular RRR, no murmur, no edema Gastrointestinal (Abdomen) normal bowel sounds, soft, nontender, no hepatosplenomegaly Skin LLE erythematous, edematous rash from left ankle up to mid-longoria, much smaller t galeas previous margins, without exudate or tracking, minimal-moderate TTP Neurologic severely impaired sensation on feet bilaterally, up to ankles Discharge Data Allergies Allergy/AdvReac Type Severity Reaction Status Date / Time amoxicillin AdvReac Mild Gastrointestinal Verified 01/14/20 15:22 Upset Consultations 01/14/20 17:42 ED Decision to Admit Stat Ordered Studies 01/14/20 15:13 US venous doppler LE LT Stat Hospital Course (1) Cellulitis of left lower extremity: - Non purulent cellulitis of lower extremity involving dorsal aspect of foot. - elevated CRP with leukocytosis and N:L ratio 5:1, afebrile currently - Negative venous Doppler of LLE - Markedly improved with ~24 hours of Vanc/Cefepime IV - Abx transitioned to Doxycycline 100mg PO BID and Ciprofloxacin 500mg PO BID x14 days - Patient should follow up closely with his PCP later this week to determine further improvement with PO abx, and should also follow up again several days after completing course of abx to ensure resolution (2) Hyperlipidemia: - continue Atorvastatin 80 - Noted triglyceride of 758, cholesterol total 235 - Diet and exercise discussed at bedside. (3) HTN (hypertension): - Controlled as outpatient on current regimen of amlodipine 10 mg PO QAM, Carvedilol 6.25 MG daily, lisinopril 40 mg at bedtime --> continue all after discharge (4) Uncontrolled type 2 diabetes mellitus: - A1c 14.0 during this hospitalization - continue all home medications - Patient will follow up with Student Financial Aid Manager and will continue daily foot checks - Patient may benefit for intensive weight control program, is actively being followed by diabetic counselor. (5) Morbid obesity with BMI of 45.0-49.9, adult: - As above. Recommend physical therapy for ambulation during cellulitis and use of cane as outpatient. (6) Diabetic nephropathy associated with type 2 diabetes mellitus: - plan as above Total Time Total Time Spent Total Time Spent (In Minutes): <30 minutes Total Time Includes: Examination of the Patient, Discharge Planning and Medication Reconciliation Discharge Plan Discharge Items Patient Disposition: Home - Self-Care Reason For Visit: LT LEG CELLULITIS Discharge Diagnosis: LLE Cellulitis Condition on Discharge: Good Activity: Per Instructions section Non-emergency contact: Primary Care Provider, Specialist and Flattening Press Operator Call non-emergency contact if: you have any medication questions, your symptoms worsen, your pain is worsening, you have a fever, your wound has increased redness, your wound has increased drainage and your wound pain has increased Follow-up/Referrals: Lanny Guerrier [Primary Care Provider] - 01/25/20 10:10 am (WILL SEE JA MUNROE) Diet: Carb Consistent or DM2 Addtl Attending Provider Instructions: You were admitted to [facility] on 01/14/2020 for an acute skin infection of your left lower leg. The source was thought to be a puncture wound infection on your left forefoot. You were started on two IV antibiotics called Vancomycin and Cefepime for the skin infection. You did well on these medications, and your skin infection looked improved. You will be discharged in stable, improved condition. You should take two antibiotics called Ciprofloxacin and Doxycycline, both twice daily for two weeks. You should start these antibiotics tonight. You should continue your home medications as prescribed. You should closely follow up with your PCP later this week to ensure that your infection continues to improve. You should also follow up again with your PCP after you are finished with the antibiotics, to ensure that the infection does not return. Lastly, you should continue to follow up with your Student Financial Aid Manager regularly and you should do daily foot checks and foot care for yourself. Pending Studies at Discharge: No Stand-Alone Forms: [facility], Smoking Cessation Medications and DC Order Prescriptions: New ciprofloxacin HCl 500 mg tablet 500 mg PO Q12H Qty: 28 RF: 0 doxycycline hyclate 100 mg capsule 100 mg PO BID 14 Days Qty: 28 RF: 0 Continued alprazolam 1 mg tablet 1 mg PO DAILY PRN (Reason: Anxiety) RF: 0 bupropion HCl [Wellbutrin SR] 150 mg tablet sustained-release 12 hr 150 mg PO HS RF: 0 pregabalin [Lyrica] 100 mg capsule 100 mg PO BID RF: 0 (DME) Accu-Chek Guide test strips Strip See Rx Instructions .ROUTE .MEDSUPPLY Qty: 10 RF: 0 (DME) lancets [Accu-Chek Softclix Lancets] Misc See Rx Instructions .ROUTE .MEDSUPPLY Qty: 100 RF: 0 Basaglar KwikPen U-100 Insulin 100 unit/mL (3 mL) insulin pen 80 unit SQ HS Qty: 2 RF: 5 atorvastatin 80 mg tablet 80 mg PO QAM RF: 0 amlodipine 10 mg tablet 10 mg PO QAM RF: 0 multivitamin Tablet 1 tab PO QAM RF: 0 carvedilol 6.25 mg Tablet 6.25 mg PO QAM RF: 0 lisinopril 40 mg tablet 40 mg PO HS RF: 0 amitriptyline 25 mg tablet 25 mg PO DAILY RF: 0 insulin aspart U-100 [Novolog Flexpen U-100 Insulin] 100 unit/mL (3 mL) insulin pen 15 unit subcut TIDM RF: 0 Discharge Orders: Discharge Order (Routine); Ordered 01/16/20 Ordered By: Juan Strickland Admission Data Admit Date/Time: 01/14/20 18:40 Attending Provider: Yasmany Christensen Admit Provider: Mustapha Coley Primary Care Provider: Lanny Guerrier Other Providers: Mustapha Coley ; Breezy Wells Other Interventions: Discharge Summary Assessment (RN) Last Done: 01/16/20 14:32 Supervising Physician Co-Signing Physician Notes I personally examined the patient and verified all sauceda points of history and exam, discussed case, and agree with decision making with Dr Strickland. feeling better and feeling safe for home. leg has improved a good deal. vitals noted nad heent nc at mmm breathing unlabored no accessory muscles good effort LLE small scabbed ulcer nontender (can feel pressure in this area) and dull / nontender / resolving erythema around distal skin/ankle not tracking not at previously drawn line. no crepitis. LLE cellultis - stable for home. w uncontrolled DM and small ulcer - have to consider both MRSA and pseudomonas - discussed risks/benefits but for home on doxy and cipro. close outpt f/u. doubt osteomyelitis given rapid onset, small ulcer somewhat removed from main area of cellulitis, and rapid resolution - but discussed need for clsoe f/u both while still on abx and then after. uncontrolled DM2 - discussed microvascular ischemia, discussed immune suppression, and discussed critical role of lifestyle in DM2. suggested 2hr pp glucose checks to learn from foods/etc. safe/stable for home otherwise as above Resident Activity Tracking Resident Involvement: Resident Care Provided Care Provided: Adult Hospital Medicine
--- NOTE | 2020-01-16 18:26 | Billing Data ---
Date of Service January 16, 2020 Coding Level of Care Code 62531 OBS Care - Discharge
== END 2020-01-16 16:50 | disposition home or self-care (01) ==
LOC: 3N 14:58 → ED 14:58 → SUATTDRO 18:40 → 3N 20:00

== ENCOUNTER 2020-04-13 12:35 | Inpatient (IN) ==
[2020-04-13] MEDS ORDERED: CEFEPIME 2,000 MG/20 ML VIAL IV STA (13:19)
[2020-04-13] MEDS ORDERED: DAPTOmycin 425 MG in SYRINGE 0 ML IV ONE (13:19)
[2020-04-13 13:30] LABS: Basophils # (auto) 0.03 K/uL (0-0.2); Basophils % (auto) 0.2 %; Eosinophils # (auto) 0.31 K/uL (0-0.5); Eosinophils % (auto) 2.1 %; Hemoglobin 9.8 g/dL (14.0-18.0); Immature Granulocytes # (auto) 0.06 K/uL (0.00-0.02); Immature Granulocytes % (auto) 0.4 %; Lymphocytes # (auto) 2.45 K/uL (1.2-3.4); Lymphocytes % (auto) 16.9 %; Mean Corpuscular Hemoglobin 27.1 pg (25-34); Mean Corpuscular Hgb Conc 32.7 g/dL (32-36); Mean Corpuscular Volume 83.1 fL (80-100); Mean Platelet Volume 10.9 fL (7.4-10.4); Monocytes # (auto) 1.09 K/uL (0.11-0.59); Monocytes % (auto) 7.5 %; Neutrophils # (auto) 10.57 K/uL (1.4-6.5); Neutrophils % (auto) 72.9 %; Platelet Count 400 K/uL (130-400); RDW Coefficient of Variation 13.1 % (11.5-14.5); RDW Standard Deviation 39.7 fL (36.4-46.3); Red Blood Count 3.61 M/uL (4.7-6.1); White Blood Count 14.51 K/uL (4.8-10.8)
[2020-04-13 13:50] LABS: Albumin Level 2.3 gm/dl (3.4-5.0); BUN Creatinine Ratio 18.7 (10-20); Calcium 9.3 mg/dl (8.5-10.1); Creatinine Clr Calc Pharmacy 43.8 ml/min; Est GFR (African American) 24.9; Est GFR (Non-African American) 21.5; Potassium 5.2 mmol/L (3.5-5.1)
[2020-04-13 13:53] LABS: Albumin Globulin Ratio 0.3 (0.9-2); Bilirubin,Total 0.2 mg/dl (0.2-1); C Reactive Protein 7.36 mg/dl (0-0.29); Total Protein 9.3 gm/dl (6.4-8.2)
[2020-04-13] MEDS ORDERED: SODIUM CHLORIDE 0.9% 1000ML 500 ML IV ONE (14:35)
[2020-04-13] MEDS: SODIUM CHLORIDE 0.9% 1000ML 1,000 ML IV SCH ×2 (15:32→21:39)
--- NOTE | 2020-04-13 16:44 | History & Physical Report ---
Date of Service April 13, 2020 Assessment & Plan (1) Diabetic ulcer of left foot associated with type 2 diabetes mellitus, limited to breakdown of skin: With abscess Daptomycin + cefepime MRI right foot ABIs in wound care clinic normal. Good capillary refill distally in toes. Wound care nurse (2) Uncontrolled type 2 diabetes mellitus: Hemoglobin A1c 14 in January. Repeat with a.m. labs Total daily dose of insulin 165 units Lantus 54 units twice daily NovoLog: Goal BSG Range: Low 110 mg/dL, High 140 mg/dL Correction Factor: 5 mg/dL/unit INS:CHO Ratio: 1unit per 5 gms CHO consumed (3) UNIQUE (obstructive sleep apnea): Patient reports awaiting home sleep study results (4) HTN (hypertension): Continue lisinopril 40 mg p.o. at bedtime, amlodipine 10 mg p.o. every morning, carvedilol 12.5 mg p.o. twice daily (5) Hyperlipidemia: Continue atorvastatin 80 mg p.o. every morning (6) Chronic kidney disease, stage IV (severe): Not diagnostic of BJ but elevated from his baseline. Will continue on IV fluids overnight. Patient reports missing his recent initial appointment with nephrology. Encouraged to follow-up after discharge. Repeat BMP in a.m. (7) DVT prophylaxis: Chemical prophylaxis deferred given young age although if significant mobility issues may consider this. History of Present Illness Chief Complaint: Right foot cellulitis and draining abscess Primary Care Provider: Lanny Guerrier Lex Manzano is a 39-year-old male with uncontrolled type 2 diabetes who presents to the ER on advice of wound care clinic due to progressive diabetic ulcer between third and fourth toes with failed outpatient Bactrim. He reports having symptoms for around 2 weeks with occasional chills. Despite cellulitis of his left foot in January last year he does not check his feet regularly as he is unable to see it but has subsequently bought a mirror. He does follow with Dr. Vidya Wheatley his sales project manager in clinic. He reports struggling to get his glucose values under control and is under endocrinology adjusting his insulin regimen. He reports compliance with taking his insulin. Today he was sent over by wound care clinic for imaging to look for an abscess/osteomyelitis plus IV antibiotics. In the ER he is currently pending MRI of his right foot. WBC 14.5. Sinus tract between toes draining but extending 2 cm per ER physician. He was started on daptomycin and cefepime due to cellulitis. He was referred to medicine for admission and ongoing management of right foot diabetic ulcer/cellulitis and acute on chronic renal failure. Allergies Allergy/AdvReac Type Severity Reaction Status Date / Time amoxicillin AdvReac Mild Gastrointestinal Verified 04/13/20 16:27 Upset Home Medications Medication Instructions Recorded Confirmed Type amlodipine 10 mg PO QAM 04/08/19 04/13/20 History atorvastatin 80 mg PO QAM 04/08/19 04/13/20 History alprazolam 1 mg tablet 1 mg PO DAILY PRN 10/14/19 04/13/20 History bupropion HCl 150 mg tablet,12 hr 150 mg PO QAM 10/14/19 04/13/20 History sustained-release blood sugar diagnostic #10 ea 12/01/19 04/13/20 History lancets #100 ea 12/01/19 04/13/20 History pregabalin 100 mg capsule 100 mg PO BID 12/01/19 04/13/20 History lisinopril 40 mg PO HS 01/04/20 04/13/20 History multivitamin 1 tab PO QAM 01/04/20 04/13/20 History amitriptyline 25 mg PO HS 01/14/20 04/13/20 History insulin glargine 100 unit/mL (3 45 unit SQ BID #2 box 02/21/20 04/13/20 Rx mL) subcutaneous pen pen needle, diabetic 31 gauge x #200 ea 02/21/20 04/13/20 Rx 3/16" carvedilol 6.25 mg tablet 12.5 mg PO BID tab 03/21/20 04/13/20 History insulin aspart U-100 100 unit/mL 25 unit SUBCUT TIDM ml 03/21/20 04/13/20 History (3 mL) subcutaneous pen nystatin 100,000 unit/gram topical 1 applic TOPICAL DAILY 14 Days #30 03/27/20 04/13/20 Rx powder g icosapent ethyl [Vascepa] 2 g PO BID 04/13/20 04/13/20 History Past Med/Surg History Medical History BJ (acute kidney injury) Chronic diarrhea reason for colonoscopy Diabetic nephropathy associated with type 2 diabetes mellitus DM neuropathy, painful DM retinopathy Habitual snoring never had a sleep study test done Hidradenitis suppurativa HTN (hypertension) Hyperlipidemia Kidney stones Morbid obesity with BMI of 45.0-49.9, adult Obesity Uncontrolled type 2 diabetes mellitus Surgical History History of cardiac cath 2014 ?? 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 History of eye surgery left eye multiple before eye removal History of tooth extraction History of wisdom tooth extraction Status post epidural steroid injection Family History Mother No problems noted. Father , Age 60, [place] Myocardial infarction Unknown Charcot-Ana disease Neuropathy Brother Family history of diabetes mellitus Other No family history of adverse response to anesthesia No significant family history Social History Smoking Status: Never smoker Second Hand Exposure: No; Do You Dip or Chew Tobacco: No; Tobacco Cessation Education Requested by Patient: No Hx Alcohol Use: No Hx Substance Use: No Preferred Language: Armenian Communication Ability: Effective Pleat Patternmaker Required: No Beliefs That Will Affect Care: None marital status: Current Living Situation: Spouse current occupational status: employed Other Information That Helps Us Care for You: No Feels Safe at Home: Yes Assistive Devices: Special Shoe Review of Systems Review of Systems: All systems reviewed & are unremarkable except as noted in HPI & below Physical Exam Constitutional: well developed and + morbidly obese; + not well nourished and no acute distress Eyes: + anicteric sclerae; pupils not irregular ENMT: Mouth: oral mucous membranes not dry Neck: trachea midline Thyroid: + thyromegaly Respiratory: normal respiratory effort, lungs clear to auscultation Cardiovascular: Rate/Rhythm: regular rhythm and + tachycardic Heart Sounds: no murmur Extremities: normal capillary refill and + pedal edema (1+ b/l equal pre-tibial); no calf tenderness Gastrointestinal (Abdomen): normal bowel sounds, soft, nontender, no hepatosplenomegaly Musculoskeletal: no cyanosis or clubbing, extremities motor strength 5/5 Skin: + erythema Erythema swelling and warmth emanating between third and fourth toes to ankle of right foot Callus with peeling of skin on plantar aspect of right foot Callus on lateral aspect of left foot Neurologic: moves all extremities and awake; not confused Psychiatric: A+Ox3, euthymic affect Genitourinary: no CVA tenderness Results & Data Results & Data ([facility]) Vital Signs (Past 12 Hours) Vital Signs Temp Pulse Pulse Resp BP BP Pulse Ox 04/13/20 15:32 103 H 20 124/83 98 04/13/20 13:47 99 H 18 111/74 96 04/13/20 12:39 36.7 C 106 H 16 110/71 96 Medications Administered ER medications given: Daptomycin 425 mg IV Cefepime 2 g IV NSS 500 mL bolus ECG Indication: tachycardia Rate (beats per minute): 103 Rhythm: sinus tachycardia Findings: + T-wave inversion (Lateral) Comparison ECG Date: from (January 16, 2020) Change: no significant change Code Status & VTE Plan Code Status Full VTE Prophylaxis Plan VTE Prophylaxis will be ordered: No PG Care Time/CCT Total # of Minutes Spent Total Time Spent with Patient: Total time spent is greater than 50% in coordination of care (as documented) at patient's floor/unit and/or counseling patient: Coding Level of Care Code 53226 Initial Inpt Care Lvl 3 Diagnoses 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
[2020-04-13] MEDS ORDERED: CARBOHYDRATES FOR HYPOGLYCEMIA PO PRN (19:49)
[2020-04-13] MEDS ORDERED: ONDANSETRON INJ 2 MG/ML 2 ML VIAL IV PRN (19:49)
[2020-04-13] MEDS ORDERED: POLYETHYLENE (MIRALAX) 17 GM PACK PO PRN (19:49)
[2020-04-13] MEDS ORDERED: GLUCOSE 10 TABS/TUBE PO PRN (19:49)
[2020-04-13] MEDS ORDERED: GLUCAGON FOR INJ 1 MG VIAL SQ PRN (19:49)
[2020-04-13] MEDS ORDERED: ALPRAZolam 0.5 MG TABLET PO PRN (19:49)
[2020-04-13] MEDS ORDERED: GLUCOSE 40% GEL 15 GM TUBE PO PRN (19:49)
[2020-04-13] MEDS ORDERED: DEXTROSE 50% 50 ML SYRINGE IV PRN (19:49)
--- NOTE | 2020-04-13 19:51 | Magnetic Resonance Report ---
MR foot RT w/o con HISTORY: 39 years-old Male osteomyelitis R foot, 3/4 metatarsal wound chronic right foot pain with p ossible osteomyelitis COMPARISON: Right foot radiographs 03/26/2020 TECHNIQUE: Multiplanar multisequence MRI of the right foot was obtained without the use of IV contras t. FINDINGS: Markedly motion degraded exam. There is diffuse and extensive subcutaneous and intramuscular edema throughout the imaged foot. Soft tissue wound with edema is noted within the webspace between the third and fourth toes. Small fluid-f illed tract extends towards the dorsal skin surface. Additionally, there is no defined fluid collecti on within the subcutaneous tissues of the medial midfoot forefoot and between the first and second di gits measuring up to 4.3 x 2.4 x 1.5 cm on image 24 series 7 and image 21 series 5. Mild multifocal osteoarthritis. Moderate bone marrow edema is noted involving the third, fourth and f ifth metatarsal heads and proximal phalanges. Mild bone marrow edema is also noted within the middle and distal phalanges of the third through fifth digits. No osseous erosions identified. IMPRESSION: 1. Markedly motion degraded exam. 2. Soft tissue wound in the webspace between the third and fourth toes is noted with sinus tract exte nding towards the dorsal soft tissues. There is an additional ill-defined fluid collection noted gabriela g the plantar forefoot at the level of the first and second metatarsals measuring up to 4.3 cm in abril gth. Findings be correlated with clinical exam findings to exclude a developing abscess. 3. No osseous erosions identified. There is however moderate marrow edema noted within the second thr ough fifth metatarsal heads and proximal phalanges with associated periosteal edema which may be reac tive or represent developing osteomyelitis. 4. Diffuse cellulitis. ACT 112: Negative or not required by law. The above report was generated using voice recognition software. It may contain grammatical, syntax o r spelling errors. Electronically signed by: Henok Pichardo M.D. 04/13/2020 7:50 PM
[2020-04-13] MEDS ORDERED: CEFEPIME CONSULT ACTIVE PRN (20:21)
--- NOTE | 2020-04-13 21:11 | Emergency Department Note ---
Impression & Plan Diabetic foot ulcer with osteomyelitis, Diabetic nephropathy associated with type 2 diabetes mellitus, Morbid obesity with BMI of 40.0-44.9, adult ED Provider Note NAME: MAU LEMONS AGE: 39 SEX: M ARRIVES VIA: Walk-In INFORMANT: Patient, wound care physician, Dr. Thrasher ED PROVIDER(S): Reva Ricks MD CHIEF COMPLAINT: Right foot nonhealing diabetic ulceration PLAN: Disposition: Inpatient Condition: Fair Referral: Hospitalist MEDICAL DECISION MAKING: This patient was evaluated and appeared to be in no significant distress. Culture was taken of the ulceration between the third and fourth toes. It does track approximately 2 cm. The patient does not appear to have significant sensation. There is also another callus/fluid collection under the metatarsals. Patient does have some cellulitic change to the dorsum of the foot. WBC, sed rate and CRP are elevated. Patient had a plain film performed several weeks ago that was negative for acute bony erosion. MRI of the foot was ordered and is significant for findings below concerning for 4 cm abscess as well as developing osteomyelitis. Patient did receive IV daptomycin and IV cefepime in the emergency department. Case was discussed with the hospitalist service who will evaluate the patient for further management. Patient is aware of the findings and agrees. Triage Nursing notes reviewed. Additional history obtained from wound care clinic Prior medical records reviewed Vital Signs: reviewed and remarkable for hypertension, tachycardia Differential diagnosis: Cellulitis, abscess, MRSA infection, DVT, necrotizing fasciitis, dermatitis, drug eruption, allergic reaction, as well as other pathologies. ER treatment provided: IV hydration IV daptomycin IV cefepime Diagnostics interpreted by me: ECG: Sinus tachycardia 103 bpm. Previous anterior infarct. T wave abnormality in the lateral leads. QTC is 476, slightly prolonged. No PVC, no PAC. No ac josh ST elevation. Cardiac Monitoring: An order for cardiac monitoring was placed and the patient is noted to be in a sinus tachycardia at 106 bpm. Laboratory studies: See below Imaging studies: MR foot RT w/o con HISTORY: 39 years-old Male osteomyelitis R foot, 3/4 metatarsal wound chronic right foot pain with possible osteomyelitis COMPARISON: Right foot radiographs 03/26/2020 TECHNIQUE: Multiplanar multisequence MRI of the right foot was obtained without the use of IV contrast. FINDINGS: Markedly motion degraded exam. There is diffuse and extensive subcutaneous and intramuscular edema throughout the imaged foot. Soft tissue wound with edema is noted within the webspace between the third and fourth toes. Small fluid-filled tract extends towards the dorsal skin surface. Additionally, there is no defined fluid collection within the subcutaneous tissues of the medial midfoot forefoot and between the first and second digits measuring up to 4.3 x 2.4 x 1.5 cm on image 24 series 7 and image 21 series 5. Mild multifocal osteoarthritis. Moderate bone marrow edema is noted involving the third, fourth and fifth metatarsal heads and proximal phalanges. Mild bone marrow edema is also noted within the middle and distal phalanges of the third through fifth digits. No osseous erosions identified. IMPRESSION: 1. Markedly motion degraded exam. 2. Soft tissue wound in the webspace between the third and fourth toes is noted with sinus tract extending towards the dorsal soft tissues. There is an additional ill-defined fluid collection noted along the plantar forefoot at the level of the first and second metatarsals measuring up to 4.3 cm in length. Findings be correlated with clinical exam findings to exclude a developing abscess. 3. No osseous erosions identified. There is however moderate marrow edema noted within the second through fifth metatarsal heads and proximal phalanges with associated periosteal edema which may be reactive or represent developing osteomyelitis. 4. Diffuse cellulitis. ACT 112: Negative or not required by law. The above report was generated using voice recognition software. It may contain grammatical, syntax or spelling errors. Electronically signed by: Henok Pichardo M.D. 04/13/2020 7:50 PM Dictated: 04/13/201941Transcribed: 04/13/201941 Consultation(s): Hospitalist HPI: This patient is a 39-year-old male who presents to the emergency department from the wound care clinic. He was sent in for further evaluation of a nonhealing right foot wound. Patient states he has completed a course of Bactrim within the last several days. There is an ulceration on the bottom of the foot over the MTP joints in addition to an ulceration between the third and fourth toes. He denies any fevers recently but states he did have a temperature prior to starting the antibiotics. He states he is not able to feel much in his feet. He denies any trauma to the feet. ROS: See above HPI for pertinent positives & negatives. A total of 10 systems reviewed and were otherwise negative. PAST MEDICAL HISTORY:See Below PAST SURGICAL HISTORY:See Below FAMILY HISTORY:See Below SOCIAL HISTORY:See Below HOME MEDICATIONS:See Below ALLERGIES:See Below VITALS:See Below PHYSICAL EXAMINATION: Vital signs reviewed. General: Chronically ill-appearing 39 yo male, in no significant distress. Cardiovascular: Tachycardic but regular, no extra sounds. Pulmonary: Clear to auscultation bilaterally, normal work of breathing. Abdomen: Soft, obese, nontender, nondistended, positive bowel sounds. Musculoskeletal: Atraumatic, right foot with chronic ulceration between the third and fourth toe. There is erosion with approximately 2 cm of tracking wound. There is a callus under the third and fourth metatarsal. There is cellulitic change to the dorsum of the foot. Neurologic: Patient awake alert and oriented x 3. Little sensation to the bilateral feet. Skin: Warm, dry, no rash, chronic scaling to the bilateral feet. Reva Ricks MD Past Med/Surg History Medical History BJ (acute kidney injury) Chronic diarrhea reason for colonoscopy Diabetic nephropathy associated with type 2 diabetes mellitus DM neuropathy, painful DM retinopathy Habitual snoring never had a sleep study test done Hidradenitis suppurativa HTN (hypertension) Hyperlipidemia Kidney stones Morbid obesity with BMI of 45.0-49.9, adult Obesity Uncontrolled type 2 diabetes mellitus Surgical History History of cardiac cath 2014 ?? 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 History of eye surgery left eye multiple before eye removal History of tooth extraction History of wisdom tooth extraction Status post epidural steroid injection Family History Mother No problems noted. Father , Age 60, [place] Myocardial infarction Unknown Charcot-Ana disease Neuropathy Brother Family history of diabetes mellitus Other No family history of adverse response to anesthesia No significant family history Social History Smoking Status: Never smoker Second Hand Exposure: No; Do You Dip or Chew Tobacco: No; Tobacco Cessation Education Requested by Patient: No Hx Alcohol Use: No Hx Substance Use: No Preferred Language: Lithuanian Communication Ability: Effective Crm Developer Required: No Beliefs That Will Affect Care: None marital status: Current Living Situation: Spouse current occupational status: employed Other Information That Helps Us Care for You: No Feels Safe at Home: Yes Assistive Devices: Cane and Glasses Allergies Allergies Allergy/AdvReac Type Severity Reaction Status Date / Time amoxicillin AdvReac Mild Gastrointestinal Verified 04/13/20 16:27 Upset Home Meds Home Medications Medication Instructions Recorded Confirmed amlodipine 10 mg PO QAM 04/08/19 04/13/20 atorvastatin 80 mg PO QAM 04/08/19 04/13/20 alprazolam 1 mg tablet 1 mg PO DAILY PRN 10/14/19 04/13/20 bupropion HCl 150 mg tablet,12 hr 150 mg PO QAM 10/14/19 04/13/20 sustained-release blood sugar diagnostic #10 ea 12/01/19 04/13/20 lancets #100 ea 12/01/19 04/13/20 pregabalin 100 mg capsule 100 mg PO BID 12/01/19 04/13/20 lisinopril 40 mg PO HS 01/04/20 04/13/20 multivitamin 1 tab PO QAM 01/04/20 04/13/20 amitriptyline 25 mg PO HS 01/14/20 04/13/20 carvedilol 6.25 mg tablet 12.5 mg PO BID tab 03/21/20 04/13/20 insulin aspart U-100 100 unit/mL 25 unit SUBCUT TIDM ml 03/21/20 04/13/20 (3 mL) subcutaneous pen icosapent ethyl [Vascepa] 2 g PO BID 04/13/20 04/13/20 Previous Rx's Medication Instructions Recorded insulin glargine 100 unit/mL (3 45 unit SQ BID #2 box 02/21/20 mL) subcutaneous pen pen needle, diabetic 31 gauge x #200 ea 02/21/2005/22" nystatin 100,000 unit/gram topical 1 applic TOPICAL DAILY 14 Days #30 03/27/20 powder g Results & Data (ED) Vital Signs Vital Signs - 24 hr 04/13/20 12:39 04/13/20 13:47 04/13/20 15:32 Temperature 36.7 C Temperature Source Oral Pulse Rate 106 H Pulse Rate [Left Finger] 99 H 103 H Pulse Rhythm Regular Pulse Rhythm [Left Finger] Regular Pulse Strength Normal Pulse Strength [Left Finger] Normal Respiratory Rate 16 18 20 Respiratory Effort / Characteristics Non-Labored Non-Labored Spontaneous Non-Labored Spontaneous Respiratory Depth Normal Normal Normal Respiratory Pattern Regular Regular Blood Pressure 110/71 Blood Pressure [Right Arm] 111/74 124/83 Blood Pressure Mean 84 Blood Pressure Mean [Right Arm] 86 96 Blood Pressure Position Sitting Blood Pressure Position [Right Arm] Sitting Pulse Oximetry 96 96 98 Oxygen Delivery Method Room Air Room Air Room Air Sepsis Recent Fever Within 48 Hours No Sepsis New/Unexplained Change in Mental Status N/A Sepsis Action Taken by Nursing No Action Required Home Medications Current Medication List: was personally reviewed by me Laboratory Data Attestation: I reviewed the patient's lab results. Result diagrams: 04/13/20 13:20 04/13/20 13:20 Lab Results 04/13/20 04/13/20 04/13/20 Range/Units 13:20 13:20 13:20 WBC 14.51 H (4.8-10.8) K/uL RBC 3.61 L (4.7-6.1) M/uL Hgb 9.8 L (14.0-18.0) g/dL Hct 30.0 L (42-52) % MCV 83.1 (80-100) fL MCH 27.1 (25-34) pg MCHC 32.7 (32-36) g/dL RDW Std Deviation 39.7 (36.4-46.3) fL RDW Coeff of Nicky 13.1 (11.5-14.5) % Plt Count 400 (130-400) K/uL MPV 10.9 H (7.4-10.4) fL Immature Gran % (Auto) 0.4 % Neut % (Auto) 72.9 % Lymph % (Auto) 16.9 % [place] % (Auto) 7.5 % Eos % (Auto) 2.1 % Baso % (Auto) 0.2 % Neut # (Auto) 10.57 H (1.4-6.5) K/uL Lymph # (Auto) 2.45 (1.2-3.4) K/uL [place] # (Auto) 1.09 H (0.11-0.59) K/uL Eos # (Auto) 0.31 (0-0.5) K/uL Baso # (Auto) 0.03 (0-0.2) K/uL Immature Gran # (Auto) 0.06 H (0.00-0.02) K/uL ESR 56 H (0-14) mm/hr Sodium 137 (136-145) mmol/L Potassium 5.2 H (3.5-5.1) mmol/L Chloride 109 H (98-107) mmol/L Carbon Dioxide 21 (21-32) mmol/L Anion Gap 7.0 (3-11) BUN 64 H (7-18) mg/dl Creatinine 3.40 H (0.6-1.4) mg/dl Est Cr Clr Drug Dosing 43.8 ml/min Est GFR ( Amer) 24.9 Est GFR (Non-Af Amer) 21.5 BUN/Creatinine Ratio 18.7 (10-20) Glucose 277 H (70-99) mg/dl Lactate (0.4-2.0) mmol/L Calcium 9.3 (8.5-10.1) mg/dl Total Bilirubin 0.2 (0.2-1) mg/dl AST 8 L (15-37) U/L ALT 12 (12-78) U/L Alkaline Phosphatase 129 H (45-117) U/L C-Reactive Protein 7.36 H (0-0.29) mg/dl Total Protein 9.3 H (6.4-8.2) gm/dl Albumin 2.3 L (3.4-5.0) gm/dl Globulin 7.0 H (2.5-4.0) gm/dl Albumin/Globulin Ratio 0.3 L (0.9-2) 04/13/20 Range/Units 14:02 WBC (4.8-10.8) K/uL RBC (4.7-6.1) M/uL Hgb (14.0-18.0) g/dL Hct (42-52) % MCV (80-100) fL MCH (25-34) pg MCHC (32-36) g/dL RDW Std Deviation (36.4-46.3) fL RDW Coeff of Nicky (11.5-14.5) % Plt Count (130-400) K/uL MPV (7.4-10.4) fL Immature Gran % (Auto) % Neut % (Auto) % Lymph % (Auto) % [place] % (Auto) % Eos % (Auto) % Baso % (Auto) % Neut # (Auto) (1.4-6.5) K/uL Lymph # (Auto) (1.2-3.4) K/uL [place] # (Auto) (0.11-0.59) K/uL Eos # (Auto) (0-0.5) K/uL Baso # (Auto) (0-0.2) K/uL Immature Gran # (Auto) (0.00-0.02) K/uL ESR (0-14) mm/hr Sodium (136-145) mmol/L Potassium (3.5-5.1) mmol/L Chloride (98-107) mmol/L Carbon Dioxide (21-32) mmol/L Anion Gap (3-11) BUN (7-18) mg/dl Creatinine (0.6-1.4) mg/dl Est Cr Clr Drug Dosing ml/min Est GFR ( Amer) Est GFR (Non-Af Amer) BUN/Creatinine Ratio (10-20) Glucose (70-99) mg/dl Lactate 1.4 (0.4-2.0) mmol/L Calcium (8.5-10.1) mg/dl Total Bilirubin (0.2-1) mg/dl AST (15-37) U/L ALT (12-78) U/L Alkaline Phosphatase (45-117) U/L C-Reactive Protein (0-0.29) mg/dl Total Protein (6.4-8.2) gm/dl Albumin (3.4-5.0) gm/dl Globulin (2.5-4.0) gm/dl Albumin/Globulin Ratio (0.9-2) Administered Medications Sodium Chloride (Nss 1000ml) 1,000 mls @ 125 mls/hr IV .Q8H MELISSA Stop: 05/13/20 14:44 Last Admin: 04/13/20 15:32 Dose: 125 mls/hr Documented by: [id number] Discontinued Medications Daptomycin 425 mg/ Syringe 8.5 mls @ 4.25 mls/min IV NOW ONE; Protocol Stop: 04/13/20 13:20 Last Admin: 04/13/20 14:07 Dose: 4.25 mls/min Documented by: [id number] Cefepime HCl (Maxipime) 2,000 mg in 20 mls @ 5 mls/min IV NOW STA; Protocol Stop: 04/13/20 13:22 Last Admin: 04/13/20 14:04 Dose: 5 mls/min Documented by: [id number] Sodium Chloride (Nss 1000ml) 500 mls @ 999 mls/hr IV .Q31M ONE Stop: 04/13/20 15:05 Last Infusion: 04/13/20 15:11 Dose: 0 mls/hr Documented by: [id number] Admin: 04/13/20 14:41 Dose: 999 mls/hr Documented by: [id number] Discharge Plan Visit Data Chief Complaint: Referred by Doctor Stated Complaint: WOUND ON R FOOT, REFERRED BY WOUND CARE ED Provider: Reva Ricks Discharge Problem: Diabetic foot ulcer with osteomyelitis, Diabetic nephropathy associated with type 2 diabetes mellitus, Morbid obesity with BMI of 40.0-44.9, adult Patient Disposition: Admitted As Inpatient Discharge Instructions Interventions: ED Discharge Assessment Last Done: 04/13/20 18:09
[2020-04-13] MEDS: AMITRIPTYLINE HCL 25 MG TAB PO SCH (21:18)
[2020-04-13] MEDS: carvediloL 12.5 MG TAB PO SCH (21:18)
[2020-04-13] MEDS: lisinopril 40 MG TAB PO SCH (21:19)
[2020-04-13] MEDS: INSULIN ASPART 100 UNITS/ML 3 ML PEN SC SCH (21:19)
[2020-04-13] MEDS: INSULIN GLARGINE SOLOSTAR 100 UNITS/ML 3 ML PEN SC SCH (21:22)
[2020-04-13] MEDS: PREGABALIN 100 MG CAP PO SCH (21:27)
[2020-04-14] MEDS: CEFEPIME 2,000 MG in SYRINGE 0 ML IV SCH ×2 (01:20→13:49)
[2020-04-14] MEDS: SODIUM CHLORIDE 0.9% 1000ML 1,000 ML IV SCH ×3 (05:37→21:45)
[2020-04-14 06:43] LABS: Basophils # (auto) 0.03 K/uL (0-0.2); Basophils % (auto) 0.2 %; Eosinophils # (auto) 0.26 K/uL (0-0.5); Eosinophils % (auto) 1.9 %; Hematocrit (blood only) 29.3 % (42-52); Hemoglobin 9.4 g/dL (14.0-18.0); Immature Granulocytes # (auto) 0.04 K/uL (0.00-0.02); Immature Granulocytes % (auto) 0.3 %; Lymphocytes # (auto) 2.44 K/uL (1.2-3.4); Lymphocytes % (auto) 17.8 %; Mean Corpuscular Hemoglobin 27.2 pg (25-34); Mean Corpuscular Hgb Conc 32.1 g/dL (32-36); Mean Corpuscular Volume 84.7 fL (80-100); Monocytes # (auto) 1.11 K/uL (0.11-0.59); Monocytes % (auto) 8.1 %; Neutrophils # (auto) 9.81 K/uL (1.4-6.5); Neutrophils % (auto) 71.7 %; Platelet Count 414 K/uL (130-400); RDW Coefficient of Variation 13.5 % (11.5-14.5); RDW Standard Deviation 41.4 fL (36.4-46.3); Red Blood Count 3.46 M/uL (4.7-6.1); White Blood Count 13.69 K/uL (4.8-10.8)
[2020-04-14 07:33] LABS: BUN Creatinine Ratio 18.1 (10-20); Calcium 9.5 mg/dl (8.5-10.1); Est GFR (African American) 30.1; Est GFR (Non-African American) 25.9; Potassium 4.9 mmol/L (3.5-5.1)
[2020-04-14 07:38] LABS: Ferritin 430.5 ng/ml (8-388)
[2020-04-14 08:04] LABS: Estimated Average Glucose 338 mg/dl; Hemoglobin A1C 13.4 % (4.5-5.6)
[2020-04-14] MEDS: INSULIN ASPART 100 UNITS/ML 3 ML PEN SC SCH ×4 (09:01→20:26)
[2020-04-14] MEDS: carvediloL 12.5 MG TAB PO SCH ×2 (09:02→20:27)
[2020-04-14] MEDS: INSULIN GLARGINE SOLOSTAR 100 UNITS/ML 3 ML PEN SC SCH ×2 (09:02→20:25)
[2020-04-14] MEDS: amLODIPine BESYLATE 5 MG TAB PO SCH (09:03)
[2020-04-14] MEDS: CLOTRIMAZOLE 1% CR 15 GM TUBE EXT SCH ×2 (09:03→20:26)
[2020-04-14] MEDS: buPROPion SR 150 MG TABCR PO SCH (09:03)
[2020-04-14] MEDS: MULTIVITAMIN TAB PO SCH (09:03)
[2020-04-14] MEDS: PREGABALIN 100 MG CAP PO SCH ×2 (09:09→20:34)
[2020-04-14] MEDS ORDERED: DAPTOmycin 650 MG in SYRINGE 0 ML IV SCH (12:00)
[2020-04-14] MEDS: AMITRIPTYLINE HCL 25 MG TAB PO SCH (20:27)
[2020-04-14] MEDS: ACETAMINOPHEN 325 MG TAB PO PRN (20:27)
[2020-04-14] MEDS: lisinopril 40 MG TAB PO SCH (20:27)
--- NOTE | 2020-04-14 21:45 | Hospitalist Progress Note ---
Date of Service April 14, 2020 Assessment & Plan (1) Diabetic ulcer of left foot associated with type 2 diabetes mellitus, limited to breakdown of skin: With possible abscess/ will consider podiatry consult. will continue current abx: Daptomycin + cefepime MRI right foot ABIs in wound care clinic normal. Good capillary refill distally in toes. Wound care nurse Awaiting culture (2) Uncontrolled type 2 diabetes mellitus: Hemoglobin A1c 14 in January. A1C: 13.4 Total daily dose of insulin 165 units Lantus 54 units twice daily NovoLog: Goal BSG Range: Low 110 mg/dL, High 140 mg/dL Correction Factor: 5 mg/dL/unit INS:CHO Ratio: 1unit per 5 gms CHO consumed (3) UNIQUE (obstructive sleep apnea): Patient reports awaiting home sleep study results (4) HTN (hypertension): Continue lisinopril 40 mg p.o. at bedtime, amlodipine 10 mg p.o. every morning, carvedilol 12.5 mg p.o. twice daily (5) Hyperlipidemia: Continue atorvastatin 80 mg p.o. every morning (6) Chronic kidney disease, stage IV (severe): Not diagnostic of BJ but elevated from his baseline. Will continue on IV fluids overnight. Patient reports missing his recent initial appointment with nephrology. Encouraged to follow-up after discharge. Creatinine remains elevated. (7) DVT prophylaxis: Chemical prophylaxis deferred given young age although if significant mobility issues may consider this. Admission and Anticipated Discharge Date Admission Date: April 13, 2020 Subjective Patient is resting comfortably. In no distress. Has no new complaints Review of Systems Review of Systems: All systems reviewed & are unremarkable except as noted in HPI & below Physical Exam Physical Exam: Constitutional: well developed and + morbidly obese; + not well nourished and no acute distress Eyes: + anicteric sclerae; pupils not irregular ENMT: Mouth: oral mucous membranes not dry Neck: trachea midline Thyroid: + thyromegaly Respiratory: normal respiratory effort, lungs clear to auscultation Cardiovascular: Rate/Rhythm: regular rhythm and tachycardic Heart Sounds: no murmur Extremities: normal capillary refill and + pedal edema (1+ b/l equal pre-tibial); no calf tenderness Gastrointestinal (Abdomen): normal bowel sounds, soft, nontender, no hepatosplenomegaly Musculoskeletal: no cyanosis or clubbing, extremities motor strength 5/5 Skin: decreased Erythema swelling and warmth emanating between third and fourth toes to ankle of right foot Callus with peeling of skin on plantar aspect of right foot Callus on lateral aspect of left foot Neurologic: moves all extremities and awake; not confused Psychiatric: A+Ox3, euthymic affect Genitourinary: no CVA tenderness Results & Data Results & Data ([facility]) Vital Signs (Past 12 Hours) Vital Signs Temp Pulse Resp BP Pulse Ox 04/14/20 15:51 36.6 C 103 H 18 167/89 H 98 PG Care Time/CCT Total # of Minutes Spent Total Time Spent with Patient: Total time spent is greater than 50% in coordination of care (as documented) at patient's floor/unit and/or counseling patient: Coding Level of Care Code 00179 Subseq Hosp Care Lvl 3 Diagnoses 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 Time Spent (min) 35
[2020-04-15] MEDS: CEFEPIME 2,000 MG in SYRINGE 0 ML IV SCH (02:38)
[2020-04-15] MEDS: SODIUM CHLORIDE 0.9% 1000ML 1,000 ML IV SCH ×3 (05:26→20:27)
[2020-04-15 08:19] LABS: Hematocrit (blood only) 29.5 % (42-52); Hemoglobin 9.6 g/dL (14.0-18.0); Mean Corpuscular Hemoglobin 27.7 pg (25-34); Mean Corpuscular Hgb Conc 32.5 g/dL (32-36); Mean Corpuscular Volume 85.3 fL (80-100); Mean Platelet Volume 10.5 fL (7.4-10.4); Platelet Count 377 K/uL (130-400); RDW Coefficient of Variation 13.5 % (11.5-14.5); RDW Standard Deviation 41.8 fL (36.4-46.3); Red Blood Count 3.46 M/uL (4.7-6.1); White Blood Count 12.75 K/uL (4.8-10.8)
[2020-04-15] MEDS: INSULIN ASPART 100 UNITS/ML 3 ML PEN SC SCH ×4 (08:37→20:20)
[2020-04-15] MEDS: INSULIN GLARGINE SOLOSTAR 100 UNITS/ML 3 ML PEN SC SCH (08:38)
[2020-04-15] MEDS: carvediloL 12.5 MG TAB PO SCH ×2 (08:38→20:28)
[2020-04-15 08:39] LABS: BUN Creatinine Ratio 15.4 (10-20); Calcium 9.4 mg/dl (8.5-10.1); Creatinine Clr Calc Pharmacy 56.4 ml/min; Est GFR (Non-African American) 29.3; Potassium 4.5 mmol/L (3.5-5.1)
[2020-04-15] MEDS: amLODIPine BESYLATE 5 MG TAB PO SCH (08:39)
[2020-04-15] MEDS: MULTIVITAMIN TAB PO SCH (08:39)
[2020-04-15] MEDS: buPROPion SR 150 MG TABCR PO SCH (08:39)
[2020-04-15] MEDS: CLOTRIMAZOLE 1% CR 15 GM TUBE EXT SCH ×2 (08:39→20:28)
[2020-04-15] MEDS: PREGABALIN 100 MG CAP PO SCH ×2 (08:46→20:28)
--- NOTE | 2020-04-15 10:04 | Hospitalist Progress Note ---
Date of Service April 15, 2020 Assessment & Plan (1) Diabetic ulcer of left foot associated with type 2 diabetes mellitus, limited to breakdown of skin: With possible abscess/ will consider podiatry consult. will continue current abx: Daptomycin + cefepime MRI right foot ABIs in wound care clinic normal. Good capillary refill distally in toes. Wound care nurse will consult podiatry fro I and D of abscess as MRI shows evidence of a possible abscess. (2) Uncontrolled type 2 diabetes mellitus: Hemoglobin A1c 14 in January. A1C: 13.4 Total daily dose of insulin 165 units Lantus 54 units twice daily NovoLog: Goal BSG Range: Low 110 mg/dL, High 140 mg/dL Correction Factor: 5 mg/dL/unit INS:CHO Ratio: 1unit per 5 gms CHO consumed (3) UNIQUE (obstructive sleep apnea): Patient reports awaiting home sleep study results (4) HTN (hypertension): Continue lisinopril 40 mg p.o. at bedtime, amlodipine 10 mg p.o. every morning, carvedilol 12.5 mg p.o. twice daily (5) Hyperlipidemia: Continue atorvastatin 80 mg p.o. every morning (6) Chronic kidney disease, stage IV (severe): Not diagnostic of BJ but elevated from his baseline. Will continue on IV fluids overnight. Patient reports missing his recent initial appointment with nephrology. Encouraged to follow-up after discharge. Creatinine remains elevated. (7) DVT prophylaxis: Chemical prophylaxis deferred given young age although if significant mobility issues may consider this. Admission and Anticipated Discharge Date Admission Date: April 13, 2020 Subjective Patient seen in AM. Patient reports feeling well. Patient has no new complaints. Review of Systems Review of Systems: All systems reviewed & are unremarkable except as noted in HPI & below Physical Exam Physical Exam: Constitutional: well developed and + morbidly obese; + not well nourished and no acute distress Eyes: + anicteric sclerae; pupils not irregular ENMT: Mouth: oral mucous membranes not dry Neck: trachea midline Thyroid: + thyromegaly Respiratory: normal respiratory effort, lungs clear to auscultation Cardiovascular: Rate/Rhythm: regular rhythm and tachycardic Heart Sounds: no murmur Extremities: normal capillary refill and + pedal edema (1+ b/l equal pre-tibial); no calf tenderness Gastrointestinal (Abdomen): normal bowel sounds, soft, nontender, no hepatosplenomegaly Musculoskeletal: no cyanosis or clubbing, extremities motor strength 5/5 Skin: decreased Erythema swelling and warmth emanating between third and fourth toes to ankle of right foot Callus with peeling of skin on plantar aspect of right foot Callus on lateral aspect of left foot Neurologic: moves all extremities and awake; not confused Psychiatric: A+Ox3, euthymic affect Genitourinary: no CVA tenderness Results & Data Results & Data ([facility]) Vital Signs (Past 12 Hours) Vital Signs Temp Pulse Resp BP Pulse Ox 04/15/20 06:57 37.1 C 101 H 18 154/84 H 97 04/14/20 23:40 36.6 C 96 H 16 122/69 95 PG Care Time/CCT Total # of Minutes Spent Total Time Spent with Patient: Total time spent is greater than 50% in coordination of care (as documented) at patient's floor/unit and/or counseling patient: Coding Level of Care Code 19596 Subseq Hosp Care Lvl 2 Diagnoses 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 Time Spent (min) 25
[2020-04-15] MEDS ORDERED: LIDOCAINE HCL 1% 20 ML VIAL ONE (10:36)
[2020-04-15] MEDS ORDERED: PHARMACY GLYCEMIC MGMT CONSULT PRN (11:44)
--- NOTE | 2020-04-15 11:44 | Pharmacy Report ---
Glycemic Control Consultation - Date of Service April 15, 2020 - Scope Scope: Glycemic Pharmacist consulted for glycemic control and to write orders per [facility] inpatient glycemic control protocol. - Objective Weight: 148 kg Accuchecks BSG (last 24hrs): 04/14/20 04/14/20 04/15/20 16:19 20:14 07:38 Glucose POC Glucose 123 H 115 H 105 H 04/15/20 04/15/20 08:06 11:25 Glucose 102 H POC Glucose 118 H Laboratory Data (last 24hrs): 04/15/20 08:06 Potassium 4.5 Carbon Dioxide 24 Anion Gap 8.0 Creatinine 2.63 H Est Cr Clr Drug Dosing 56.4 HbA1c: Hemoglobin A1c 13.4 % (4.5-5.6) H 04/14/20 06:27 - Recent Pertinent Medications Outpatient Anti-diabetic Regimen: * Lantus 45 units BID + Novolog 25 TIDM * A1c = 13.4 % 04/14/20 The patient is currently receiving: * Basal insulin: Lantus 54 units every 12 hours * Correctional Insulin: Novolog Correction per scale ACHS Goal Range: Low 110 mg/dL - High 140 mg/dL Correction Factor: 5 mg/dL/unit * Prandial insulin: Per carb ratio of 1 unit per 5 grams CHO consumed * Oral Agents: Risk Factors for Insulin Resistance: * Infection: osteomyelitis on Ancef * Diet: T2DM - Assessment & Plan Assessment & Plan: ASSESSMENT: * Mr Manzano is a 39 y/o M with a PMH of poorly controlled T2DM who presents with osteomyelitis. Patient started on Lantus 54 units BID plus Novolog CF 5 CR 5. Patient received 144 units of insulin yesterday (108 units of basal and 36 units of bolus). BSGs yesterday were [phone] mg/dL. Fasting this morning was 105 mg/dL. * Will decrease to once daily Lantus dosing. Weight-based. Lantus 54 units given this morning so d/c tonight's dose. Lantus 40-60 units ordered for tomorrow based upon BSG (adjusted body weight full weight-based stress of Lantus) * Change to weight-based stress of 3 Novolog. PLAN FOR INPATIENT GLYCEMIC CONTROL: * Basal insulin * Lantus 40-60 units SQ qAM (Lantus 40 units if BSG < 120 mg/dL; Lantus 50 units if BSG 120-160 mg/dL; Lantus 60 units if BSG > 160 mg/dL) * Bolus insulin * NovoLog per scale ACHS or Q6hrs while NPO * Goal Range: Low 110 mg/dL - High 140 mg/dL * Correction Factor: 15 mg/dL/unit * Nutritional / Prandial insulin per carb ratio of 1 unit per 5 grams CHO consumed * Please note that the plan above was derived based on current level of insulin resistance and hospital stress. These recommendations are appropriate for inpatient admission only. Plan of care upon discharge will need to be reassessed to avoid potential outpatient hypo/hyperglycemia. Thank you.
[2020-04-15] MEDS: ceFAZolin 2000MG 2,000 MG/15 ML SYR IV SCH ×2 (12:01→20:27)
--- NOTE | 2020-04-15 12:43 | Podiatry Consultation ---
Date of Consultation April 15, 2020 Assessment & Plan (1) Diabetic ulcer of left foot associated with type 2 diabetes mellitus, limited to breakdown of skin: Thank you for allowing me to participate in the care of this Patient. I will continue to follow Patient while on floor and provide continue care as needed including daily dressing changes. 1.) Patient seen, evaluated, and treated 2.) Reviewed MRI with Patient, verbal consent for bedside excisional debridement and I&D. 3.) Bedside right foot I&D completed with out incident. Patient tolerated procedure well. See procedure noted below. 3.) Deep cultures obtained. 4.) Wounds packed with saline moisten gauze and iodoform 1/2" packing 5.) Continue current abx: Daptomycin + cefepime 6.) Awaiting sensitivities 7.) If available Patient may benefit from use of [employer] hydroSurgery system I examined the patient for an ulcer that has been resistant to healing despite numerous interventions. The plan is now to examine any underlying characteristics that may impede healing. A thorough evaluation of the wound was done in detail. Signs and symptoms of infection were noted. Manners in which pressure reduction could be achieved were investigated. Patient has previously reported denying use of total contact casting and has not employed use of diabetic off loading shoes and inserts. Off-loading is a critical part of this patient's management. Factors which likely contribute to non-healing include: lack of adequate off-loading when supine, inadequately controlled infection, lack of adequate off-loading when ambulating, lack of adherence to diabetic footwear, a limited understanding of the disease of diabetes and its processes, lack of appropriate wound and podiatric care, lack of adherence to diabetic control measures. The Treatment Plan is as follows: After evaluation of the patient and wound status and characteristics, it was decided that the wound would be debrided and an incision and drainage would be completed. Please see procedure note below. To offload or remove pressure to the wound is essential. Patient education today to include: the need for off loading shoes and outpatient wound and podiatric care. To promote adequate wound healing patient is encouraged to maintain glucose below 180mg. Patient is seeing Endocrinology as outpatient and this should be maintained. Consult was also placed to parent educator/ lunch truck operator who was present at time of my consult. These services are invaluable. Patient was educated today on the need for compliance to treatment plan. The Patient was asked to notify me if there was an impediment to compliance so that I could assist him in meeting the needs of his care. Today's procedure is an excisional debridement of deep tissue, incision and drainage at bedside. There is a moderate amount of purulence and serosanguineous exudate draining fro m the right foot 3rd interspace ulcer. The ulcer base is described as containing devitalized tissue. Necrotic or devitalized tissue is estimated to be present in approximately 40% of the ulcer bed. The ulcer has exposed full- thickness tissue in to muscle. I have informed the patient of the risks and benefit of this incision and drainage, debridement procedure and he has had the opportunity to ask questions. Appropriate consent has been obtained. The patient refused site marking. The area was prepped and draped in usual aseptic manner. The procedure was performed and a clean field. Utilizing 20ml of 1% lidocaine plain a standard ankle block was delivered for local anesthesia. I debrided the right foot wound sharply with a sterile #15 blade and necrotic tissue was excised. Bleeding was minimal and hemostasis was achieved using pressure. Utilizing a sharp, sterile, #15 blade a plantar skin incision was created. Purulence was expelled from this incisional wound. Deep cultures were obtained. Normal saline was used to flush both the 3rd interspace ulcer and plantar incision wound. The wounds were packed with iodoform and saline moistened 4x4 gauze followed by dry, sterile, dressing consisting of 4x4, and Kerlix. The patient tolerated procedure and anesthesia well. Postprocedure no increased pain. Conservative wound care was rendered. We discussed the pertinent risks, benefits, and an alternative to the patients considered procedure, as well as the patients expectations.Surgery operations have subjective outcomes which may be dependent upon patient anatomy and expectations. While a specific result cannot be guaranteed and jonh-operative problems may occur, every effort will be made to deliver a satisfactory result in a safe and ethical manner. (2) Uncontrolled type 2 diabetes mellitus: Hemoglobin A1c 14 in January. A1C: 13.4 Total daily dose of insulin 165 units Lantus 54 units twice daily NovoLog: Goal BSG Range: Low 110 mg/dL, High 140 mg/dL Correction Factor: 5 mg/dL/unit INS:CHO Ratio: 1unit per 5 gms CHO consumed (3) UNIQUE (obstructive sleep apnea): Patient reports awaiting home sleep study results (4) HTN (hypertension): Continue lisinopril 40 mg p.o. at bedtime, amlodipine 10 mg p.o. every morning, carvedilol 12.5 mg p.o. twice daily (5) Hyperlipidemia: Continue atorvastatin 80 mg p.o. every morning (6) Chronic kidney disease, stage IV (severe): Not diagnostic of BJ but elevated from his baseline. Will continue on IV fluids overnight. Patient reports missing his recent initial appointment with nephrology. En couraged to follow-up after discharge. Creatinine remains elevated. (7) DVT prophylaxis: Chemical prophylaxis deferred given young age although if significant mobility issues may consider this. History of Present Illness Attending Physician: Eloy Christianson History of Present Illness Patient is a type II diabetic, 39 year old male seen at bedside in no acute distress. Patient is followed by Endocrinology, Harvey Aburto PA-C for attempted blood glucose control, most recent 04/14/20, HA1C 13.4. Patient self reports dense lower extremity neuropathy and history of DFUs. He is followed by [facility] for bilateral DFUs and history of lower extremity cellulitis requiring hospitalization at [facility] 2020. Patient was most recently seen at [facility] on 04/13/20 where right foot wounds were notably worsening. Patient was referred to ED for possible admit and IV abx. Blood cultures show negative growth, left foot wound cultures show Staph aureus. Recent MRI reveals abscess left foot. Patient has no other immediate complaints. Allergies Allergy/AdvReac Type Severity Reaction Status Date / Time amoxicillin AdvReac Mild Gastrointestinal Verified 04/13/20 16:27 Upset Home Medications Medication Instructions Recorded Confirmed Type amlodipine 10 mg PO QAM 04/08/19 04/13/20 History atorvastatin 80 mg PO QAM 04/08/19 04/13/20 History alprazolam 1 mg tablet 1 mg PO DAILY PRN 10/14/19 04/13/20 History bupropion HCl 150 mg tablet,12 hr 150 mg PO QAM 10/14/19 04/13/20 History sustained-release blood sugar diagnostic #10 ea 12/01/19 04/13/20 History lancets #100 ea 12/01/19 04/13/20 History pregabalin 100 mg capsule 100 mg PO BID 12/01/19 04/13/20 History lisinopril 40 mg PO HS 01/04/20 04/13/20 History multivitamin 1 tab PO QAM 01/04/20 04/13/20 History amitriptyline 25 mg PO HS 01/14/20 04/13/20 History insulin glargine 100 unit/mL (3 45 unit SQ BID #2 box 02/21/20 04/13/20 Rx mL) subcutaneous pen pen needle, diabetic 31 gauge x #200 ea 02/21/20 04/13/20 Rx 3/16" carvedilol 6.25 mg tablet 12.5 mg PO BID tab 03/21/20 04/13/20 History insulin aspart U-100 100 unit/mL 25 unit SUBCUT TIDM ml 03/21/20 04/13/20 History (3 mL) subcutaneous pen nystatin 100,000 unit/gram topical 1 applic TOPICAL DAILY 14 Days #30 03/27/20 04/13/20 Rx powder g icosapent ethyl [Vascepa] 2 g PO BID 04/13/20 04/13/20 History Patient History Medical History BJ (acute kidney injury) Chronic diarrhea reason for colonoscopy Diabetic nephropathy associated with type 2 diabetes mellitus DM neuropathy, painful DM retinopathy Habitual snoring never had a sleep study test done Hidradenitis suppurativa HTN (hypertension) Hyperlipidemia Kidney stones Morbid obesity with BMI of 45.0-49.9, adult Obesity Uncontrolled type 2 diabetes mellitus Surgical History History of cardiac cath 2014 ?? 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 History of eye surgery left eye multiple before eye removal History of tooth extraction History of wisdom tooth extraction Status post epidural steroid injection Family History Mother No problems noted. Father , Age 60, [place] Myocardial infarction Unknown Charcot-Ana disease Neuropathy Brother Family history of diabetes mellitus Other No family history of adverse response to anesthesia No significant family history Social History Smoking Status: Never smoker Second Hand Exposure: No; Do You Dip or Chew Tobacco: No; Tobacco Cessation Education Requested by Patient: No Hx Alcohol Use: No Hx Substance Use: No Preferred Language: Tamazight Communication Ability: Effective Income Tax Administrator Required: No Beliefs That Will Affect Care: None marital status: Current Living Situation: Spouse current occupational status: employed Other Information That Helps Us Care for You: No Feels Safe at Home: Yes Assistive Devices: Special Shoe Review of Systems Review of Systems: All systems reviewed & are unremarkable except as noted in HPI & below Constitutional: as per Subjective / HPI Eyes: Denies vision problems Respiratory: No wheezing. Regular rate and rhythm Cardiovascular: Additional Comments: Denies chest pain Gastrointestinal: Denies Abdominal pain. Belly is soft and tender. 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 Bone is not immediately probed. Wound size (cm): 2.1 x 0.9 x 2.3cm Odor: no malodor Drainage: moderate serosanguineous exudate Undermining: minimal Borders: macerated Constitutional: well developed and well nourished Eyes: PERRL ENMT: external ear and nose normal, oropharynx normal Neck: trachea midline, no thyromegaly Respiratory: normal respiratory effort, lungs clear to auscultation Cardiovascular: Rate/Rhythm: regular rate and regular rhythm Chest (Breasts): Chest: normal inspection of chest Gastrointestinal (Abdomen): Inspection/Auscultation: abdomen normal to inspection Musculoskeletal: no cyanosis or clubbing, extremities motor strength 5/5 Head/Neck/Chest: normocephalic Skin: + ulcer (right foot) Atrophic changes to lower extremities consistent with uncontrolled diabetes. Neurologic: moves all extremities Motor/Sensory: + sensory deficit Psychiatric: A+Ox3, euthymic affect Lymphatic: Atrophic changes noted to skin secondary to lymphedema integument shows hyperpigmentation hyperkeratosis hyperplasia with papillomatosis and fibrosis. Results & Data ([facility]) Vital Signs (Past 12 Hours) Vital Signs Temp Pulse Resp BP Pulse Ox 04/15/20 06:57 37.1 C 101 H 18 154/84 H 97 MRI: IMPRESSION: 1. Markedly motion degraded exam. 2. Soft tissue wound in the webspace between the third and fourth toes is noted with sinus tract extending towards the dorsal soft tissues. There is an additional ill-defined fluid collection noted along the plantar forefoot at the level of the first and second metatarsals measuring up to 4.3 cm in length. Findings be correlated with clinical exam findings to exclude a developing abscess. 3. No osseous erosions identified. There is however moderate marrow edema noted within the second through fifth metatarsal heads and proximal phalanges with associated periosteal edema which may be reactive or represent developing osteomyelitis. 4. Diffuse cellulitis.
[2020-04-15] MEDS: lisinopril 40 MG TAB PO SCH (20:21)
[2020-04-15] MEDS: AMITRIPTYLINE HCL 25 MG TAB PO SCH (20:28)
[2020-04-16] MEDS: ceFAZolin 2000MG 2,000 MG/15 ML SYR IV SCH ×3 (03:09→20:12)
[2020-04-16] MEDS: SODIUM CHLORIDE 0.9% 1000ML 1,000 ML IV SCH ×3 (03:09→20:12)
--- NOTE | 2020-04-16 06:29 | Electrocardiogram Report ---
Test Reason : Blood Pressure : / mmHG Vent. Rate : 103 BPM Atrial Rate : 103 BPM P-R Int : 178 ms QRS Dur : 112 ms QT Int : 364 ms P-R-T Axes : 049 -18 134 degrees QTc Int : 476 ms Sinus tachycardia Possible Anterior infarct (cited on or before 16-JAN-2020) T wave abnormality, consider lateral ischemia Abnormal ECG When compared with ECG of 16-JAN-2020 07:59, No significant change Confirmed by Jc Villagomez ([id number]) on 04/15/2020 11:00:08 AM Referred By: REFERRED SELF Confirmed By:Jc Villagomez
[2020-04-16 07:57] LABS: Hematocrit (blood only) 27.2 % (42-52); Hemoglobin 8.7 g/dL (14.0-18.0); Mean Corpuscular Hemoglobin 27.3 pg (25-34); Mean Corpuscular Volume 85.3 fL (80-100); Mean Platelet Volume 10.6 fL (7.4-10.4); Platelet Count 363 K/uL (130-400); RDW Coefficient of Variation 13.3 % (11.5-14.5); RDW Standard Deviation 41.3 fL (36.4-46.3); Red Blood Count 3.19 M/uL (4.7-6.1); White Blood Count 11.44 K/uL (4.8-10.8)
[2020-04-16] MEDS: buPROPion SR 150 MG TABCR PO SCH (08:16)
[2020-04-16] MEDS: MULTIVITAMIN TAB PO SCH (08:16)
[2020-04-16] MEDS: amLODIPine BESYLATE 5 MG TAB PO SCH (08:16)
[2020-04-16] MEDS: carvediloL 12.5 MG TAB PO SCH ×2 (08:16→20:16)
[2020-04-16] MEDS: INSULIN ASPART 100 UNITS/ML 3 ML PEN SC SCH ×4 (08:17→20:20)
[2020-04-16] MEDS: INSULIN GLARGINE SOLOSTAR 100 UNITS/ML 3 ML PEN SC SCH (08:18)
[2020-04-16] MEDS: CLOTRIMAZOLE 1% CR 15 GM TUBE EXT SCH ×2 (08:19→20:17)
[2020-04-16 08:25] LABS: BUN Creatinine Ratio 12.3 (10-20); Calcium 9.1 mg/dl (8.5-10.1); Est GFR (African American) 35.1; Est GFR (Non-African American) 30.3; Potassium 4.4 mmol/L (3.5-5.1)
[2020-04-16] MEDS: PREGABALIN 100 MG CAP PO SCH ×2 (08:36→20:31)
--- NOTE | 2020-04-16 11:00 | Pharmacy Report ---
Pharmacy Glycemic Short Note 2 - Date of Service April 16, 2020 - Glycemic Short BSG Results (Last 24 hours): OUTPATIENT ANTIDIABETIC REGIMEN: * ASSESSMENT: 04/16: * Lex received a total of 83 units of insulin yesterday * 54 units basal + 29 units bolus * BSGs ranged 105 - 121 mg/dL - well controlled * Fasting BSG this morning was 104 mg/dL - well controlled * Adjusted Lantus dosing slightly so that patient received 45 units this morning which is a 17% reduction from yesterday's dose * Given HbA1c, patient could feel hypoglycemic at higher BSGs than usual. Will lower BSGs gradually. * No adjustment to Novolog made today. 04/15: * Mr Manzano is a 39 y/o M with a PMH of poorly controlled T2DM who presents with osteomyelitis. Patient started on Lantus 54 units BID plus Novolog CF 5 CR 5. Patient received 144 units of insulin yesterday (108 units of basal and 36 units of bolus). BSGs yesterday were [phone] mg/dL. Fasting this morning was 105 mg/dL. * Will decrease to once daily Lantus dosing. Weight-based. Lantus 54 units given this morning so d/c tonight's dose. Lantus 40-60 units ordered for tomorrow based upon BSG (adjusted body weight full weight-based stress of Lantus) * Change to weight-based stress of 3 Novolog. PLAN FOR INPATIENT GLYCEMIC CONTROL: * Basal insulin - decreased * Lantus 45-55 units SQ AM (BSG < 120 mg/dL = 45 units; BSG 120 - 160 mg/dL = 50 units; BSG > 160 mg/dL = 55 units) * Bolus insulin - no change * NovoLog per scale ACHS or Q6hrs while NPO * Goal Range: Low 110 mg/dL - High 140 mg/dL * Correction Factor: 15 mg/dL/unit * Nutritional / Prandial insulin per carb ratio of 1 unit per 5 grams CHO consumed PLAN FOR DISCHARGE: * HbA1c = 13.4% is well above goal range. Would recommend a goal HbA1c of less than 7% given patient's age and comorbidities. * Patient follows with final expense agent for diabetes management. Basaglar doses were most recently adjusted in February 2020 to 45 units BID. Given HbA1c is trending down, would not recommend any changes to insulin regimen upon discharge. Continue to follow-up with final expense agent.
[2020-04-16] MEDS: lisinopril 40 MG TAB PO SCH (20:16)
[2020-04-16] MEDS: AMITRIPTYLINE HCL 25 MG TAB PO SCH (20:17)
--- NOTE | 2020-04-16 21:29 | Podiatry Consultation ---
Date of Consultation April 16, 2020 Assessment & Plan (1) Diabetic ulcer of left foot associated with type 2 diabetes mellitus, limited to breakdown of skin: Thank you for allowing me to participate in the care of this Patient. I will continue to follow Patient while on floor and provide continue care as needed including daily dressing changes. 1.) Patient seen, evaluated, and treated 2.) WBC continuing to trend downward 3.) Dry sterile dressing change. Wounds packed with saline moisten gauze and iodoform 1/2" packing 4.) Continue current abx: Daptomycin + cefepime Per medicine 5.) Awaiting sensitivities 6.) Still considering [employer] hydroSurgery system for selective debridement (2) Uncontrolled type 2 diabetes mellitus: (3) UNIQUE (obstructive sleep apnea): (4) HTN (hypertension): (5) Hyperlipidemia: (6) Chronic kidney disease, stage IV (severe): (7) DVT prophylaxis: History of Present Illness Reason for Consultation: Right foot Diabetic foot ulcer, cellulitis right lower extremity Attending Physician: Eloy Christianson History of Present Illness Patient is a type II diabetic, 39 year old male seen at bedside resting comfortably. Patient is status post day 1 bedside incision and drainage. He relates no complaints. Allergies Allergy/AdvReac Type Severity Reaction Status Date / Time amoxicillin AdvReac Mild Gastrointestinal Verified 04/13/20 16:27 Upset Home Medications Medication Instructions Recorded Confirmed Type amlodipine 10 mg PO QAM 04/08/19 04/13/20 History atorvastatin 80 mg PO QAM 04/08/19 04/13/20 History alprazolam 1 mg tablet 1 mg PO DAILY PRN 10/14/19 04/13/20 History bupropion HCl 150 mg tablet,12 hr 150 mg PO QAM 10/14/19 04/13/20 History sustained-release blood sugar diagnostic #10 ea 12/01/19 04/13/20 History lancets #100 ea 12/01/19 04/13/20 History pregabalin 100 mg capsule 100 mg PO BID 12/01/19 04/13/20 History lisinopril 40 mg PO HS 01/04/20 04/13/20 History multivitamin 1 tab PO QAM 01/04/20 04/13/20 History amitriptyline 25 mg PO HS 01/14/20 04/13/20 History insulin glargine 100 unit/mL (3 45 unit SQ BID #2 box 02/21/20 04/13/20 Rx mL) subcutaneous pen pen needle, diabetic 31 gauge x #200 ea 02/21/20 04/13/20 Rx 3/16" carvedilol 6.25 mg tablet 12.5 mg PO BID tab 03/21/20 04/13/20 History insulin aspart U-100 100 unit/mL 25 unit SUBCUT TIDM ml 03/21/20 04/13/20 History (3 mL) subcutaneous pen nystatin 100,000 unit/gram topical 1 applic TOPICAL DAILY 14 Days #30 03/27/20 04/13/20 Rx powder g icosapent ethyl [Vascepa] 2 g PO BID 04/13/20 04/13/20 History blood-glucose meter,continuous #1 ea 04/16/20 Rx blood-glucose sensor #3 ea 04/16/20 Rx blood-glucose transmitter #1 ea 04/16/20 Rx Patient History Medical History BJ (acute kidney injury) Chronic diarrhea reason for colonoscopy Diabetic nephropathy associated with type 2 diabetes mellitus DM neuropathy, painful DM retinopathy Habitual snoring never had a sleep study test done Hidradenitis suppurativa HTN (hypertension) Hyperlipidemia Kidney stones Morbid obesity with BMI of 45.0-49.9, adult Obesity Uncontrolled type 2 diabetes mellitus Surgical History History of cardiac cath 2014 ?? 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 History of eye surgery left eye multiple before eye removal History of tooth extraction History of wisdom tooth extraction Status post epidural steroid injection Family History Mother No problems noted. 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 Regular rate and rhythm Cardiovascular: Additional Comments: Denies chest pain Gastrointestinal: Denies Abdominal pain. Belly is soft and tender. 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 Bone is not immediately probed. Wound size (cm): 2.1 x 0.9 x 2.3cm Odor: no malodor Drainage: moderate serosanguineous exudate Undermining: minimal Borders: macerated Constitutional: well developed and well nourished Eyes: PERRL ENMT: external ear and nose normal, oropharynx normal Neck: trachea midline, no thyromegaly Respiratory: normal respiratory effort, lungs clear to auscultation Cardiovascular: Rate/Rhythm: regular rate and regular rhythm Chest (Breasts): Chest: normal inspection of chest Gastrointestinal (Abdomen): Inspection/Auscultation: abdomen normal to inspection Musculoskeletal: no cyanosis or clubbing, extremities motor strength 5/5 Head/Neck/Chest: normocephalic Skin: + ulcer (right foot) Neurologic: moves all extremities Motor/Sensory: + sensory deficit Psychiatric: A+Ox3, euthymic affect Results & Data ([facility]) Vital Signs (Past 12 Hours) Vital Signs Temp Pulse Resp BP Pulse Ox 04/16/20 19:00 36.6 C 91 H 22 160/95 H 98 04/16/20 14:51 36.8 C 87 20 138/79 96
--- NOTE | 2020-04-16 22:44 | Hospitalist Progress Note ---
Date of Service April 16, 2020 Assessment & Plan (1) Diabetic ulcer of left foot associated with type 2 diabetes mellitus, limited to breakdown of skin: S/P I and D of abscess. Appreciate podiatry consult will continue current abx: Daptomycin + cefepime MRI right foot showed abscess ABIs in wound care clinic normal. Good capillary refill distally in toes. Wound care nurse will consult podiatry fro I and D of abscess as MRI shows evidence of a possible abscess. (2) Uncontrolled type 2 diabetes mellitus: Hemoglobin A1c 14 in January. A1C: 13.4 Total daily dose of insulin 165 units Lantus 54 units twice daily NovoLog: Goal BSG Range: Low 110 mg/dL, High 140 mg/dL Correction Factor: 5 mg/dL/unit INS:CHO Ratio: 1unit per 5 gms CHO consumed (3) UNIQUE (obstructive sleep apnea): Patient reports awaiting home sleep study results (4) HTN (hypertension): Continue lisinopril 40 mg p.o. at bedtime, amlodipine 10 mg p.o. every morning, carvedilol 12.5 mg p.o. twice daily (5) Hyperlipidemia: Continue atorvastatin 80 mg p.o. every morning (6) Chronic kidney disease, stage IV (severe): Not diagnostic of BJ but elevated from his baseline. Will continue on IV fluids overnight. Patient reports missing his recent initial appointment with nephrology. Encouraged to follow-up after discharge. Creatinine remains elevated. (7) DVT prophylaxis: Chemical prophylaxis deferred given young age although if significant mobility issues may consider this. Admission and Anticipated Discharge Date Admission Date: April 13, 2020 Subjective 39 yo male reports feeling well. Patient has no new symptoms. Patient denies fever, chills, nausea, vomiting. Review of Systems Review of Systems: All systems reviewed & are unremarkable except as noted in HPI & below Physical Exam Physical Exam: Constitutional: well developed and + morbidly obese; + not well nourished and no acute distress Eyes: + anicteric sclerae; pupils not irregular ENMT: Mouth: oral mucous membranes not dry Neck: trachea midline thick neck, possible thyroidmegaly Respiratory: normal respiratory effort, lungs clear to auscultation Cardiovascular: Rate/Rhythm: regular rhythm and tachycardic Heart Sounds: no murmur Extremities: normal capillary refill and + pedal edema (1+ b/l equal pre-tibial); no calf tenderness Gastrointestinal (Abdomen): normal bowel sounds, soft, nontender, no hepatosplenomegaly Musculoskeletal: no cyanosis or clubbing, extremities motor strength 5/5 Skin: dry dressing noted on right foot. 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
[2020-04-17] MEDS: SODIUM CHLORIDE 0.9% 1000ML 1,000 ML IV SCH (04:58)
[2020-04-17] MEDS: ceFAZolin 2000MG 2,000 MG/15 ML SYR IV SCH ×3 (04:58→20:46)
--- NOTE | 2020-04-17 08:11 | Hospitalist Progress Note ---
Date of Service April 17, 2020 Assessment & Plan (1) Diabetic ulcer of left foot associated with type 2 diabetes mellitus, limited to breakdown of skin: * POD# 2 S/P I and D of abscess by Dr. Puri on 04/15 * Previously failed outpatient treatment * MRI right foot showed abscess, possible developing osteo (although discussed with podiatry and does not feel any osteo) * Initially on Dapto/Cefepime * Podiatry on consult -- would benefit from [employer] [facility] if available -- will discuss with CM. Not likely to utilize this however patient may benefit from wound vac given the depth. Will discuss with Aimee in AM once re-eval from Dr. Puri this afternoon * Surface culture from 04/13 with staph aureus * Wound culture from I&D with the same * Antibiotics de-escalated to Ancef on 04/15-- continue * Continue wound care and at discharge * WBC now wnl at 10k, afebrile * Blood cultures NGTD -- follow * Will order PT/OT evals for today for possible home health/home therapy * Infectious disease consultation ordered for rec's at discharge * Patient (2) Uncontrolled type 2 diabetes mellitus: * Hemoglobin A1c 14 in January. * A1C: 13.4 * Total daily dose of insulin 165 units * Lantus 54 units twice daily * NovoLog: * Goal BSG Range: Low 110 mg/dL, High 140 mg/dL * Correction Factor: 5 mg/dL/unit * INS:CHO Ratio: 1unit per 5 gms CHO consumed * BSGs have been acceptable (3) UNIQUE (obstructive sleep apnea): * Patient reports awaiting home sleep study results (4) HTN (hypertension): * Continue lisinopril 40 mg p.o. at bedtime, amlodipine 10 mg p.o. every morning, carvedilol 12.5 mg p.o. twice daily * BP elevated at 146/80 -- likely some component of pain (as well as unofficial diagnosed sleep apnea as he is waiting on sleep study results) * Continue to monitor -- consider increasing medications if continues to be elevated (5) Hyperlipidemia: * Continue atorvastatin 80 mg p.o. every morning (6) Chronic kidney disease, stage IV (severe): * Not diagnostic of BJ but elevated from his baseline * Had been on continuous IVF and repeat Cr 2.36 (peaked at 3.4 on admission) and appears baseline closer to 2.4-2.8 range (possible worsening over past year given diabetes as above) * Patient had f/u appt with nephrology initially and missed appointment -- will need arranged at d/c given CKD IV and not previously established * Will d/c IVF today and repeat BMP in AM (7) DVT prophylaxis: * PT/OT consults pending * Consider chemo proph if continues inpatient stay/mobility issues pending Pt/ot evals Dispo: continued inpatient stay Admission and Anticipated Discharge Date Admission Date: April 13, 2020 Subjective Patient evaluated around lunch. Feeling well. Eating/drinking and moving his bowels. Pain controlled with ordered medication and is stating no pain at this time. Has not seen Dr. Puri this morning and was inquiring if he would be by today as he was by around 7am the day prior. Discussed plans for IV abx for now but that cultures from I&D with same organism from initial culture and sensitive to chosen antibiotics. Will need to reach out to Dr. Puri about need for continued IV abx if concerns for osteo as MRI with possible developing osteo and would need weeks of IV therapy. If needed, he would like home health at discharge. No fever, chills, chest pain, shortness of breath, abdominal pain, nausea vomiting or dysuria reported. Questions/concerns addressed at this time. Review of Systems Review of Systems: All systems reviewed & are unremarkable except as noted in HPI & below Physical Exam Physical Exam: Constitutional: well developed and + morbidly obese; well nourished and no acute distress, comfortable Eyes: + anicteric sclerae; pupils not irregular ENMT: Mouth: oral mucous membranes moist Neck: trachea midline, possible thyromegaly Respiratory: normal respiratory effort, lungs clear to auscultation, diminished breath sounds throughout Cardiovascular: Rate/Rhythm: regular rhythm and tachycardic Heart Sounds: no murmur Extremities: normal capillary refill and + pedal edema (1+ b/l equal pre-tibial, improving); no calf tenderness. pulses palpable bilaterally Gastrointestinal (Abdomen): normal bowel sounds, soft, nontender, no hepatosplenomegaly Musculoskeletal: no cyanosis or clubbing, extremities motor strength 5/5 Skin: dressing to RIGHT foot c/d/i, no erythema beyond dressing noted, m inimally tender Callus on lateral aspect of left foot Neurologic: moves all extremities and awake; not confused Psychiatric: A+Ox3, euthymic affect Results & Data Results & Data ([facility]) Vital Signs (Past 12 Hours) Vital Signs Temp Pulse Resp BP Pulse Ox 04/17/20 07:00 36.6 C 91 H 20 146/80 H 97 04/16/20 23:52 37.0 C 92 H 20 135/64 95 Laboratory Results 04/17/20 04/17/20 04/17/20 Range/Units 11:28 08:08 08:08 WBC 10.17 (4.8-10.8) K/uL RBC 3.39 L (4.7-6.1) M/uL Hgb 9.2 L (14.0-18.0) g/dL Hct 28.7 L (42-52) % MCV 84.7 (80-100) fL MCH 27.1 (25-34) pg MCHC 32.1 (32-36) g/dL RDW Std Deviation 41.4 (36.4-46.3) fL RDW Coeff of Nicky 13.4 (11.5-14.5) % Plt Count 434 H (130-400) K/uL MPV 10.7 H (7.4-10.4) fL Immature Gran % (Auto) 0.2 % Neut % (Auto) 65.4 % Lymph % (Auto) 22.9 % Evans % (Auto) 8.1 % Eos % (Auto) 3.1 % Baso % (Auto) 0.3 % Neut # (Auto) 6.65 H (1.4-6.5) K/uL Lymph # (Auto) 2.33 (1.2-3.4) K/uL Evans # (Auto) 0.82 H (0.11-0.59) K/uL Eos # (Auto) 0.32 (0-0.5) K/uL Baso # (Auto) 0.03 (0-0.2) K/uL Immature Gran # (Auto) 0.02 (0.00-0.02) K/uL Sodium 139 (136-145) mmol/L Potassium 4.3 (3.5-5.1) mmol/L Chloride 109 H (98-107) mmol/L Carbon Dioxide 24 (21-32) mmol/L Anion Gap 6.0 (3-11) BUN 31 H (7-18) mg/dl Creatinine 2.36 H (0.6-1.4) mg/dl Est Cr Clr Drug Dosing 62.9 ml/min Est GFR ( Amer) 38.7 Est GFR (Non-Af Amer) 33.4 BUN/Creatinine Ratio 12.9 (10-20) Glucose 136 H (70-99) mg/dl POC Glucose 152 H (70-99) mg/dl Calcium 9.1 (8.5-10.1) mg/dl Total Bilirubin 0.2 (0.2-1) mg/dl AST 10 L (15-37) U/L ALT 7 L (12-78) U/L Alkaline Phosphatase 109 (45-117) U/L Total Protein 8.6 H (6.4-8.2) gm/dl Albumin 2.1 L (3.4-5.0) gm/dl Globulin 6.5 H (2.5-4.0) gm/dl Albumin/Globulin Ratio 0.3 L (0.9-2) 04/17/20 04/16/20 04/16/20 Range/Units 07:31 20:15 16:25 WBC (4.8-10.8) K/uL RBC (4.7-6.1) M/uL Hgb (14.0-18.0) g/dL Hct (42-52) % MCV (80-100) fL MCH (25-34) pg MCHC (32-36) g/dL RDW Std Deviation (36.4-46.3) fL RDW Coeff of Nicky (11.5-14.5) % Plt Count (130-400) K/uL MPV (7.4-10.4) fL Immature Gran % (Auto) % Neut % (Auto) % Lymph % (Auto) % Evans % (Auto) % Eos % (Auto) % Baso % (Auto) % Neut # (Auto) (1.4-6.5) K/uL Lymph # (Auto) (1.2-3.4) K/uL Evans # (Auto) (0.11-0.59) K/uL Eos # (Auto) (0-0.5) K/uL Baso # (Auto) (0-0.2) K/uL Immature Gran # (Auto) (0.00-0.02) K/uL Sodium (136-145) mmol/L Potassium (3.5-5.1) mmol/L Chloride (98-107) mmol/L Carbon Dioxide (21-32) mmol/L Anion Gap (3-11) BUN (7-18) mg/dl Creatinine (0.6-1.4) mg/dl Est Cr Clr Drug Dosing ml/min Est GFR ( Amer) Est GFR (Non-Af Amer) BUN/Creatinine Ratio (10-20) Glucose (70-99) mg/dl POC Glucose 131 H 136 H 124 H (70-99) mg/dl Calcium (8.5-10.1) mg/dl Total Bilirubin (0.2-1) mg/dl AST (15-37) U/L ALT (12-78) U/L Alkaline Phosphatase (45-117) U/L Total Protein (6.4-8.2) gm/dl Albumin (3.4-5.0) gm/dl Globulin (2.5-4.0) gm/dl Albumin/Globulin Ratio (0.9-2) PG Care Time/CCT Total # of Minutes Spent Total Time Spent with Patient: Total time spent is greater than 50% in coordination of care (as documented) at patient's floor/unit and/or counseling patient: Coding Level of Care Code 53633 Subseq Hosp Care Lvl 3 Diagnoses 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
[2020-04-17 08:27] LABS: Basophils # (auto) 0.03 K/uL (0-0.2); Basophils % (auto) 0.3 %; Eosinophils # (auto) 0.32 K/uL (0-0.5); Eosinophils % (auto) 3.1 %; Hematocrit (blood only) 28.7 % (42-52); Hemoglobin 9.2 g/dL (14.0-18.0); Immature Granulocytes # (auto) 0.02 K/uL (0.00-0.02); Immature Granulocytes % (auto) 0.2 %; Lymphocytes # (auto) 2.33 K/uL (1.2-3.4); Lymphocytes % (auto) 22.9 %; Mean Corpuscular Hemoglobin 27.1 pg (25-34); Mean Corpuscular Hgb Conc 32.1 g/dL (32-36); Mean Corpuscular Volume 84.7 fL (80-100); Mean Platelet Volume 10.7 fL (7.4-10.4); Monocytes # (auto) 0.82 K/uL (0.11-0.59); Monocytes % (auto) 8.1 %; Neutrophils # (auto) 6.65 K/uL (1.4-6.5); Neutrophils % (auto) 65.4 %; Platelet Count 434 K/uL (130-400); RDW Coefficient of Variation 13.4 % (11.5-14.5); RDW Standard Deviation 41.4 fL (36.4-46.3); Red Blood Count 3.39 M/uL (4.7-6.1); White Blood Count 10.17 K/uL (4.8-10.8)
[2020-04-17] MEDS: buPROPion SR 150 MG TABCR PO SCH (08:29)
[2020-04-17] MEDS: amLODIPine BESYLATE 5 MG TAB PO SCH (08:29)
[2020-04-17] MEDS: MULTIVITAMIN TAB PO SCH (08:29)
[2020-04-17] MEDS: carvediloL 12.5 MG TAB PO SCH ×2 (08:29→20:38)
[2020-04-17] MEDS: CLOTRIMAZOLE 1% CR 15 GM TUBE EXT SCH ×2 (08:29→20:39)
[2020-04-17] MEDS: INSULIN GLARGINE SOLOSTAR 100 UNITS/ML 3 ML PEN SC SCH (08:30)
[2020-04-17] MEDS: INSULIN ASPART 100 UNITS/ML 3 ML PEN SC SCH ×4 (08:31→20:38)
[2020-04-17] MEDS: PREGABALIN 100 MG CAP PO SCH ×2 (08:40→20:46)
[2020-04-17 08:53] LABS: Albumin Level 2.1 gm/dl (3.4-5.0); BUN Creatinine Ratio 12.9 (10-20); Calcium 9.1 mg/dl (8.5-10.1); Creatinine Clr Calc Pharmacy 62.9 ml/min; Est GFR (African American) 38.7; Est GFR (Non-African American) 33.4; Potassium 4.3 mmol/L (3.5-5.1)
[2020-04-17 08:56] LABS: Albumin Globulin Ratio 0.3 (0.9-2); Bilirubin,Total 0.2 mg/dl (0.2-1); Globulin 6.5 gm/dl (2.5-4.0); Total Protein 8.6 gm/dl (6.4-8.2)
--- NOTE | 2020-04-17 11:24 | Pharmacy Report ---
Pharmacy Glycemic Short Note 2 - Date of Service April 17, 2020 - Glycemic Short BSG Results (Last 24 hours): OUTPATIENT ANTIDIABETIC REGIMEN: * Basaglar 45 units SQ BID * Novolog 25 units SQ TIDM + SSI (up to max of 100 units bolus insulin per day) * A1c = 13.4% (04/14/20) ASSESSMENT: 04/17: * Lex received a total of 68 units of insulin yesterday * 45 units basal + 23 units bolus * BSGs over last 24 hours ranged 104 - 136 mg/dL - well controlled * Fasting BSG is controlled at 131 mg/dL this AM * No changes to insulin regimen required today as there are no changes in stressors 04/16: * Lex received a total of 83 units of insulin yesterday * 54 units basal + 29 units bolus * BSGs ranged 105 - 121 mg/dL - well controlled * Fasting BSG this morning was 104 mg/dL - well controlled * Adjusted Lantus dosing slightly so that patient received 45 units this morning which is a 17% reduction from yesterday's dose * Given HbA1c, patient could feel hypoglycemic at higher BSGs than usual. Will lower BSGs gradually. * No adjustment to Novolog made today. 04/15: * Mr Manzano is a 39 y/o M with a PMH of poorly controlled T2DM who presents with osteomyelitis. Patient started on Lantus 54 units BID plus Novolog CF 5 CR 5. Patient received 144 units of insulin yesterday (108 units of basal and 36 units of bolus). BSGs yesterday were [phone] mg/dL. Fasting this morning was 105 mg/dL. * Will decrease to once daily Lantus dosing. Weight-based. Lantus 54 units given this morning so d/c tonight's dose. Lantus 40-60 units ordered for tomorrow based upon BSG (adjusted body weight full weight-based stress of Lantus) * Change to weight-based stress of 3 Novolog. PLAN FOR INPATIENT GLYCEMIC CONTROL: * Basal insulin - no change * Lantus 45-55 units SQ AM (BSG < 120 mg/dL = 45 units; BSG 120 - 160 mg/dL = 50 units; BSG > 160 mg/dL = 55 units) * Bolus insulin - no change * NovoLog per scale ACHS or Q6hrs while NPO * Goal Range: Low 110 mg/dL - High 140 mg/dL * Correction Factor: 15 mg/dL/unit * Nutritional / Prandial insulin per carb ratio of 1 unit per 5 grams CHO consumed PLAN FOR DISCHARGE: * HbA1c = 13.4% is well above goal range. Would recommend a goal HbA1c of less than 7% given patient's age and comorbidities. * Patient follows with parking lot manager for diabetes management. Basaglar doses were most recently adjusted in February 2020 to 45 units BID. Given HbA1c is t rending down, would not recommend any changes to insulin regimen upon discharge. Continue to follow-up with parking lot manager.
[2020-04-17] MEDS: lisinopril 40 MG TAB PO SCH (20:38)
[2020-04-17] MEDS: AMITRIPTYLINE HCL 25 MG TAB PO SCH (20:38)
--- NOTE | 2020-04-17 20:48 | Podiatry Consultation ---
Date of Consultation April 17, 2020 Assessment & Plan (1) Diabetic ulcer of left foot associated with type 2 diabetes mellitus, limited to breakdown of skin: 1.) Patient seen, evaluated, and treated 2.) WBC continuing to trend downward 3.) Plantar wound probes to second metatarsal and there is some concern for Osteomyelitis 4.) Recommend repeat MRI prior to discharge 5.) Recommend midline and IV abx therapy for discharge due severity of wounds 6.) Patient will likely require serial debridement as outpatient and this was discussed with Patient. 7.) Wound Vac applied to third interspace wound, 1/2" packing applied to plantar wound at today's visit. Thank you for allowing me to participate in the care of this Patient. (2) Uncontrolled type 2 diabetes mellitus: Hemoglobin A1c 14 in January. A1C: 13.4 Total daily dose of insulin 165 units Lantus 54 units twice daily NovoLog: Goal BSG Range: Low 110 mg/dL, High 140 mg/dL Correction Factor: 5 mg/dL/unit INS:CHO Ratio: 1unit per 5 gms CHO consumed (3) UNIQUE (obstructive sleep apnea): Patient reports awaiting home sleep study results (4) HTN (hypertension): Continue lisinopril 40 mg p.o. at bedtime, amlodipine 10 mg p.o. every morning, carvedilol 12.5 mg p.o. twice daily (5) Hyperlipidemia: Continue atorvastatin 80 mg p.o. every morning (6) Chronic kidney disease, stage IV (severe): Not diagnostic of BJ but elevated from his baseline. Will continue on IV fluids overnight. Patient reports missing his recent initial appointment with nephrology. Encouraged to follow-up after discharge. Creatinine remains elevated. (7) DVT prophylaxis: Chemical prophylaxis deferred given young age although if significant mobility issues may consider this. History of Present Illness Attending Physician: Eloy Christianson History of Present Illness Patient seen at bedside resting comfortably. He has no complaints. Patient is anxious to be discharged home. Allergies Allergy/AdvReac Type Severity Reaction Status Date / Time amoxicillin AdvReac Mild Gastrointestinal Verified 04/13/20 16:27 Upset Home Medications Medication Instructions Recorded Confirmed Type amlodipine 10 mg PO QAM 04/08/19 04/13/20 History atorvastatin 80 mg PO QAM 04/08/19 04/13/20 History alprazolam 1 mg tablet 1 mg PO DAILY PRN 10/14/19 04/13/20 History bupropion HCl 150 mg tablet,12 hr 150 mg PO QAM 10/14/19 04/13/20 History sustained-release blood sugar diagnostic #10 ea 12/01/19 04/13/20 History lancets #100 ea 12/01/19 04/13/20 History pregabalin 100 mg capsule 100 mg PO BID 12/01/19 04/13/20 History lisinopril 40 mg PO HS 01/04/20 04/13/20 History multivitamin 1 tab PO QAM 01/04/20 04/13/20 History amitriptyline 25 mg PO HS 01/14/20 04/13/20 History insulin glargine 100 unit/mL (3 45 unit SQ BID #2 box 02/21/20 04/13/20 Rx mL) subcutaneous pen pen needle, diabetic 31 gauge x #200 ea 02/21/20 04/13/20 Rx 3/16" carvedilol 6.25 mg tablet 12.5 mg PO BID tab 03/21/20 04/13/20 History insulin aspart U-100 100 unit/mL 25 unit SUBCUT TIDM ml 03/21/20 04/13/20 History (3 mL) subcutaneous pen nystatin 100,000 unit/gram topical 1 applic TOPICAL DAILY 14 Days #30 03/27/20 04/13/20 Rx powder g icosapent ethyl [Vascepa] 2 g PO BID 04/13/20 04/13/20 History blood-glucose meter,continuous #1 ea 04/16/20 Rx blood-glucose sensor #3 ea 04/16/20 Rx blood-glucose transmitter #1 ea 04/16/20 Rx Patient History Medical History BJ (acute kidney injury) Chronic diarrhea reason for colonoscopy Diabetic nephropathy associated with type 2 diabetes mellitus DM neuropathy, painful DM retinopathy Habitual snoring never had a sleep study test done Hidradenitis suppurativa HTN (hypertension) Hyperlipidemia Kidney stones Morbid obesity with BMI of 45.0-49.9, adult Obesity Uncontrolled type 2 diabetes mellitus Surgical History History of cardiac cath 2014 ?? 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 History of eye surgery left eye multiple before eye removal History of tooth extraction History of wisdom tooth extraction Status post epidural steroid injection Family History Mother No problems noted. Father , Age 60, [place] Myocardial infarction Unknown Charcot-Ana disease Neuropathy Brother Family history of diabetes mellitus Other No family history of adverse response to anesthesia No significant family history Social History Smoking Status: Never smoker Second Hand Exposure: No; Do You Dip or Chew Tobacco: No; Tobacco Cessation Education Requested by Patient: No Hx Alcohol Use: No Hx Substance Use: No Preferred Language: Lithuanian Communication Ability: Unable Mine Deputy Required: No Beliefs That Will Affect Care: None marital status: Current Living Situation: Spouse current occupational status: employed Other Information That Helps Us Care for You: No Feels Safe at Home: Yes Assistive Devices: Special Shoe Review of Systems Constitutional: as per Subjective / HPI Eyes: Denies vision problems Respiratory: No wheezing. Regular rate and rhythm Cardiovascular: Additional Comments: Denies chest pain Gastrointestinal: Denies Abdominal pain. Belly is soft and tender. Musculoskeletal: Denies muscle or joint pain Integumentary: + non-healing lesions, + skin ulcer (3rd interspace right foot) and + erythema (right foot) Neurologic: as per Subjective / HPI, + loss of sensation and + numbness Psychiatric: Normal affect and demeanor Endocrine: as per Subjective / HPI Hematologic / Lymphatic: as per Subjective / HPI Allergy / Immunological: as per Subjective / HPI Physical Exam Constitutional: well developed and well nourished Eyes: PERRL ENMT: external ear and nose normal, oropharynx normal Neck: trachea midline, no thyromegaly Respiratory: normal respiratory effort, lungs clear to auscultation Cardiovascular: Rate/Rhythm: regular rate and regular rhythm Chest (Breasts): Chest: normal inspection of chest Gastrointestinal (Abdomen): Inspection/Auscultation: abdomen normal to inspection Musculoskeletal: no cyanosis or clubbing, extremities motor strength 5/5 Head/Neck/Chest: normocephalic Skin: + ulcer (right foot) Neurologic: moves all extremities Motor/Sensory: + sensory deficit Psychiatric: A+Ox3, euthymic affect Results & Data ([facility]) Vital Signs (Past 12 Hours) Vital Signs Temp Pulse Resp BP Pulse Ox 04/17/20 15:00 36.4 C L 99 H 20 150/76 H 96
[2020-04-18] MEDS: ceFAZolin 2000MG 2,000 MG/15 ML SYR IV SCH (03:38)
[2020-04-18 07:08] LABS: Hematocrit (blood only) 27.8 % (42-52); Hemoglobin 8.9 g/dL (14.0-18.0); Mean Corpuscular Hemoglobin 27.2 pg (25-34); Mean Platelet Volume 10.8 fL (7.4-10.4); Platelet Count 434 K/uL (130-400); RDW Coefficient of Variation 13.3 % (11.5-14.5); Red Blood Count 3.27 M/uL (4.7-6.1); White Blood Count 10.01 K/uL (4.8-10.8)
[2020-04-18 07:43] LABS: BUN Creatinine Ratio 12.2 (10-20); C Reactive Protein 3.26 mg/dl (0-0.29); Calcium 9.1 mg/dl (8.5-10.1); Creatinine Clr Calc Pharmacy 61.1 ml/min; Est GFR (African American) 37.4; Est GFR (Non-African American) 32.3; Potassium 4.3 mmol/L (3.5-5.1)
[2020-04-18] MEDS: MULTIVITAMIN TAB PO SCH (08:16)
[2020-04-18] MEDS: carvediloL 12.5 MG TAB PO SCH ×2 (08:16→21:16)
[2020-04-18] MEDS: PREGABALIN 100 MG CAP PO SCH ×2 (08:16→21:15)
[2020-04-18] MEDS: buPROPion SR 150 MG TABCR PO SCH (08:16)
[2020-04-18] MEDS: amLODIPine BESYLATE 5 MG TAB PO SCH (08:16)
[2020-04-18] MEDS: INSULIN GLARGINE SOLOSTAR 100 UNITS/ML 3 ML PEN SC SCH (08:17)
[2020-04-18] MEDS: CLOTRIMAZOLE 1% CR 15 GM TUBE EXT SCH ×2 (08:17→21:19)
[2020-04-18] MEDS: INSULIN ASPART 100 UNITS/ML 3 ML PEN SC SCH ×4 (08:18→21:55)
--- NOTE | 2020-04-18 08:36 | Magnetic Resonance Report ---
MRI OF THE RIGHT FOREFOOT WITHOUT IV CONTRAST CLINICAL HISTORY: Right foot infection. COMPARISON STUDY: MRI of the right forefoot dated 04/13/2020. Radiographs of the right foot dated 2020. TECHNIQUE: MRI of the right forefoot is performed utilizing various T1 and T2-weighted sequences in t he axial, sagittal, and coronal planes. IV contrast was not administered for this examination. The ex amination is compromised by motion artifact. There is diffuse superficial and deep soft tissue edema identified throughout the forefoot. There is diffuse edema of the regional musculature. There is sign ificant marrow edema identified within the head and neck of the second and third metatarsals. Questio n fracture line within the necks of the second and third metatarsals, best seen on sagittal images #1 5 and #19. There is also significant marrow edema identified within the second, third, and fourth pro ximal phalanges. Again seen is a wound between the third and fourth toes with surrounding edema. This extends towards the dorsal surface of the foot at this level. There is a wound identified along the plantar aspect of the foot with surrounding phlegmonous change. The wound measures up to 1.4 cm in le ngth. The fluid collection at this site seen previously has largely resolved. This is deep to the sha ft of the second metatarsal. There is a small developing fluid collection identified along the dorsal aspect of the foot between the fourth and fifth proximal phalanges, best seen on coronal image #16. This measures approximately 1.6 x 1.6 x 0.7 cm. Mild degenerative change is seen throughout the foref oot. IMPRESSION: 1. Motion compromised examination. 2. There is marked marrow edema identified within the head and neck of the second and third metatarsa ls. Question fracture lines in both metatarsal necks. This could be on a posttraumatic and/or an infe ctious basis. 3. Again seen is significant marrow edema within the second, third, and fourth proximal phalanges. Os teomyelitis is not excluded. 4. There is a wound along the plantar aspect of the foot with surrounding phlegmonous change at the s ite of a previously characterized collection. The fluid component has largely resolved. 4. Again seen is a wound between the third and fourth toes with surrounding edema. The wound extends to the dorsal surface of the foot. 5. There is a new developing dorsal fluid collection between the fourth and fifth toes. A small absce ss is not excluded. 6. There is evidence of diffuse cellulitis/myositis throughout the forefoot. Dictated: 04/18/2020 7:19 AM Transcribed: 04/18/2020 7:49 AM [email or web address] [id number] Electronically signed by: Isaiah Horton M.D. 04/18/2020 8:34 AM
--- NOTE | 2020-04-18 08:50 | Hospitalist Progress Note ---
Date of Service April 18, 2020 Assessment & Plan (1) Diabetic foot ulcer with osteomyelitis: * POD# 3 S/P I and D of abscess by Dr. Puri on 04/15 * Previously failed outpatient treatment * MRI right foot showed abscess, possible developing osteo (although discussed with podiatry and does not feel any osteo) * Initially on Dapto/Cefepime * Podiatry on consult -- would benefit from [facility] system if available -- will discuss with CM. Not likely to utilize this however patient may benefit from wound vac given the depth. Will discuss with Aimee in AM once re-eval from Dr. Puri this afternoon * Surface culture from 04/13 with staph aureus * Wound culture from I&D with the same * Antibiotics de-escalated to Ancef on 04/15 * Continue wound care and at discharge -- will need either f/u local vs with Dr. Puri * WBC now wnl at 10k, afebrile * Blood cultures NGTD -- follow * Will order PT/OT evals for today for possible home health/home therapy * Infectious disease consultation ordered for rec's at discharge --see report. ok w PO abx if thought to exclude bone, however given exam last night by podiatry with possible additional abscess/osteo from plantar wound recommended repeat MRI REPEAT MRI: * There is marked marrow edema identified within the head and neck of the second and third metatarsals. Question fracture lines in both metatarsal necks. This could be on a posttraumatic and/or an infectious basis. * Again seen is significant marrow edema within the second, third, and fourth proximal phalanges. Osteomyelitis is not excluded. * There is a wound along the plantar aspect of the foot with surrounding phlegmonous change at the site of a previously characterized collection. The fluid component has largely resolved. * Again seen is a wound between the third and fourth toes with surrounding edema. The wound extends to the dorsal surface of the foot. * There is a new developing dorsal fluid collection between the fourth and fifth toes. A small abscess is not excluded. * There is evidence of diffuse cellulitis/myositis throughout the forefoot. Will be eval by podiatry this afternoon WBC remains stable, afebrile, however concerns for possible pseudomonas drainage during dressing change on 04/17 Wound vac placed 04/17 Will likely need IV acess and IV abx at discharge given repeat MRI findings Will discuss with wound care/podiatry about follow up and likely serial debridement Discussed with Dr. Elena from [place], and will broaded abx to Cefepime for now and touch base again if further I&D/debridement D/c Ancef, start Cefepime 2g IV Q8H (04/18) (2) Diabetic ulcer of left foot associated with type 2 diabetes mellitus, limited to breakdown of skin: (3) Uncontrolled type 2 diabetes mellitus: * Hemoglobin A1c 14 in January. * A1C: 13.4 * Total daily dose of insulin 165 units * Lantus 54 units twice daily * NovoLog: * Goal BSG Range: Low 110 mg/dL, High 140 mg/dL * Correction Factor: 5 mg/dL/unit * INS:CHO Ratio: 1unit per 5 gms CHO consumed * BSGs have been acceptable Consider addition of GLP-1 or similar for some appetite suppression as possible insulin increasing patient's hunger and still with A1c 13.4/uncontrolled Follows with Endocrinology -- discuss starting at discharge vs follow up with Endocrine to start this therapy. He follows with Harvey Aburto and has appointment with him and PCP on Apr 24 per patient Discuss[address] with Dr. Aburto on 04/18 and patient has had severely poorly controlled DM2 and was on Invokana prior to seeing them recently but was too expensive. Did not was to do a SGLT2 but did not discuss GLP-1 Will check with patients regarding medullary thyroid/etc/etc prior to starting Ozempic or similar at lowest dose and will need f/u with Endocrine (already scheduled as above) (4) UNIQUE (obstructive sleep apnea): * Patient reports awaiting home sleep study results. * would likely have additional benefit on BP with CPAP as likely with UNIQUE (5) HTN (hypertension): * Continue lisinopril 40 mg p.o. at bedtime, amlodipine 10 mg p.o. every morning, carvedilol 12.5 mg p.o. twice daily * BP elevated at 156/82 -- likely some component of pain (as well as unofficial diagnosed sleep apnea as he is waiting on sleep study results) * Continue to monitor -- consider increasing medications if continues to be elevated (6) Hyperlipidemia: * Continue atorvastatin 80 mg p.o. every morning (7) Chronic kidney disease, stage IV (severe): * Not diagnostic of BJ but elevated from his baseline * Had been on continuous IVF and repeat Cr 2.36 (peaked at 3.4 on admission) and appears baseline closer to 2.4-2.8 range (possible worsening over past year given diabetes as above) * d/c'd IVF 04/17 * Repeat Cr 2.43, slightly above yesterday but appears to be in his range * Does not appear dry on exam -- repeat BM in AM Patient had f/u appt with nephrology initially and missed appointment -- will need arranged at d/c given CKD IV and not previously established (8) DVT prophylaxis: * PT/OT consults pending * Consider chemo proph if continues inpatient stay/mobility issues pending Pt/ot evals Hypomagnesemia Mag 1.7 -- 1gm IV for today Repeat in AM Dispo: continued inpatient stay Admission and Anticipated Discharge Date Admission Date: April 13, 2020 Subjective Patient evaluated this morning. Had just worked with therapy. Wearing boot but only with insert and may need new one prior to d/c. Discussed MRI findings with possible new abscess and Dr. Puri will be by this afternoon. Discussed rehab at d/c due to traveling -- he is agreeable to discussion but states he does take care of the animals at home so it's not just him and sounds like more wanting home with home health. Discussed with possible osteo on imaging and concerns from podiatry that we may need to utilize IV antibiotics to ensure proper healing. Eating/drinking without difficulty. Moving his bowels. Pain controlled with Tylenol alone. Questions/concerns answered at this time. Review of Systems Review of Systems: All systems reviewed & are unremarkable except as noted in HPI & below Physical Exam Physical Exam: Constitutional: well developed and + morbidly obese; well nourished and no acute distress, comfortable Eyes: + anicteric sclerae; pupils not irregular ENMT: Mouth: oral mucous membranes moist Neck: trachea midline, possible thyromegaly Respiratory: normal respiratory effort, lungs clear to auscultation, diminished breath sounds throughout Cardiovascular: Rate/Rhythm: regular rhythm and tachycardic Heart Sounds: no m urmur Extremities: normal capillary refill and + pedal edema (1+ b/l equal pre- tibial, improving); no calf tenderness. pulses palpable bilaterally Gastrointestinal (Abdomen): normal bowel sounds, soft, nontender, no hepatosplenomegaly Musculoskeletal: no cyanosis or clubbing, extremities motor strength 5/5 Skin: +wound vac to RIGHT foot c/d/i, no erythema beyond dressing noted, sensation to pressure but not to light touch. possible fluid collection between 4th/5th digit on dorsal aspect Callus on lateral aspect of left foot Neurologic: moves all extremities and awake; not confused Psychiatric: A+Ox3, euthymic affect Results & Data Results & Data ([facility]) Vital Signs (Past 12 Hours) Vital Signs Temp Pulse Resp BP BP Pulse Ox 04/18/20 07:19 36.5 C 92 H 18 156/82 H 95 04/17/20 23:48 37.3 C 100 H 20 144/81 H 99 Laboratory Results 04/18/20 04/18/20 04/18/20 Range/Units 07:21 06:40 06:40 WBC 10.01 (4.8-10.8) K/uL RBC 3.27 L (4.7-6.1) M/uL Hgb 8.9 L (14.0-18.0) g/dL Hct 27.8 L (42-52) % MCV 85.0 (80-100) fL MCH 27.2 (25-34) pg MCHC 32.0 (32-36) g/dL RDW Std Deviation 41.0 (36.4-46.3) fL RDW Coeff of Nicky 13.3 (11.5-14.5) % Plt Count 434 H (130-400) K/uL MPV 10.8 H (7.4-10.4) fL Sodium 138 (136-145) mmol/L Potassium 4.3 (3.5-5.1) mmol/L Chloride 108 H (98-107) mmol/L Carbon Dioxide 24 (21-32) mmol/L Anion Gap 6.0 (3-11) BUN 30 H (7-18) mg/dl Creatinine 2.43 H (0.6-1.4) mg/dl Est Cr Clr Drug Dosing 61.1 ml/min Est GFR ( Amer) 37.4 Est GFR (Non-Af Amer) 32.3 BUN/Creatinine Ratio 12.2 (10-20) Glucose 135 H (70-99) mg/dl POC Glucose 150 H (70-99) mg/dl Calcium 9.1 (8.5-10.1) mg/dl Total Bilirubin (0.2-1) mg/dl AST (15-37) U/L ALT (12-78) U/L Alkaline Phosphatase (45-117) U/L C-Reactive Protein 3.26 H (0-0.29) mg/dl Total Protein (6.4-8.2) gm/dl Albumin (3.4-5.0) gm/dl Globulin (2.5-4.0) gm/dl Albumin/Globulin Ratio (0.9-2) 04/17/20 04/17/20 04/17/20 Range/Units 20:24 16:43 11:28 WBC (4.8-10.8) K/uL RBC (4.7-6.1) M/uL Hgb (14.0-18.0) g/dL Hct (42-52) % MCV (80-100) fL MCH (25-34) pg MCHC (32-36) g/dL RDW Std Deviation (36.4-46.3) fL RDW Coeff of Nicky (11.5-14.5) % Plt Count (130-400) K/uL MPV (7.4-10.4) fL Sodium (136-145) mmol/L Potassium (3.5-5.1) mmol/L Chloride (98-107) mmol/L Carbon Dioxide (21-32) mmol/L Anion Gap (3-11) BUN (7-18) mg/dl Creatinine (0.6-1.4) mg/dl Est Cr Clr Drug Dosing ml/min Est GFR ( Amer) Est GFR (Non-Af Amer) BUN/Creatinine Ratio (10-20) Glucose (70-99) mg/dl POC Glucose 125 H 148 H 152 H (70-99) mg/dl Calcium (8.5-10.1) mg/dl Total Bilirubin (0.2-1) mg/dl AST (15-37) U/L ALT (12-78) U/L Alkaline Phosphatase (45-117) U/L C-Reactive Protein (0-0.29) mg/dl Total Protein (6.4-8.2) gm/dl Albumin (3.4-5.0) gm/dl Globulin (2.5-4.0) gm/dl Albumin/Globulin Ratio (0.9-2) 04/17/20 Range/Units 08:08 WBC (4.8-10.8) K/uL RBC (4.7-6.1) M/uL Hgb (14.0-18.0) g/dL Hct (42-52) % MCV (80-100) fL MCH (25-34) pg MCHC (32-36) g/dL RDW Std Deviation (36.4-46.3) fL RDW Coeff of Nicky (11.5-14.5) % Plt Count (130-400) K/uL MPV (7.4-10.4) fL Sodium 139 (136-145) mmol/L Potassium 4.3 (3.5-5.1) mmol/L Chloride 109 H (98-107) mmol/L Carbon Dioxide 24 (21-32) mmol/L Anion Gap 6.0 (3-11) BUN 31 H (7-18) mg/dl Creatinine 2.36 H (0.6-1.4) mg/dl Est Cr Clr Drug Dosing 62.9 ml/min Est GFR ( Amer) 38.7 Est GFR (Non-Af Amer) 33.4 BUN/Creatinine Ratio 12.9 (10-20) Glucose 136 H (70-99) mg/dl POC Glucose (70-99) mg/dl Calcium 9.1 (8.5-10.1) mg/dl Total Bilirubin 0.2 (0.2-1) mg/dl AST 10 L (15-37) U/L ALT 7 L (12-78) U/L Alkaline Phosphatase 109 (45-117) U/L C-Reactive Protein (0-0.29) mg/dl Total Protein 8.6 H (6.4-8.2) gm/dl Albumin 2.1 L (3.4-5.0) gm/dl Globulin 6.5 H (2.5-4.0) gm/dl Albumin/Globulin Ratio 0.3 L (0.9-2) Diagnostic Findings MRI RIGHT FOOT w/o IV CONTRAST IMPRESSION: 1. Motion compromised examination. 2. There is marked marrow edema identified within the head and neck of the second and third metatarsals. Question fracture lines in both metatarsal necks. This could be on a posttraumatic and/or an infectious basis. 3. Again seen is significant marrow edema within the second, third, and fourth proximal phalanges. Osteomyelitis is not excluded. 4. There is a wound along the plantar aspect of the foot with surrounding phlegmonous change at the site of a previously characterized collection. The fluid component has largely resolved. 4. Again seen is a wound between the third and fourth toes with surrounding edema. The wound extends to the dorsal surface of the foot. 5. There is a new developing dorsal fluid collection between the fourth and fifth toes. A small abscess is not excluded. 6. There is evidence of diffuse cellulitis/myositis throughout the forefoot. PG Care Time/CCT Total # of Minutes Spent Total Time Spent with Patient: Total time spent is greater than 50% in apartment coordinator rdination of care (as documented) at patient's floor/unit and/or counseling patient: Coding Level of Care Code 03752 Subseq Hosp Care Lvl 3 Diagnoses Diabetic foot ulcer with osteomyelitis E11.621; E11.69; L97.509; M86.9 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
[2020-04-18 09:15] LABS: Magnesium 1.7 mg/dl (1.8-2.4); Phosphorus 4.1 mg/dl (2.5-4.9)
[2020-04-18] MEDS ORDERED: MAGNESIUM SULFATE / D5W 1 GM/100 ML BAG IV ONE (11:00)
[2020-04-18] MEDS: CEFEPIME 2,000 MG in SYRINGE 0 ML IV SCH ×2 (12:08→21:15)
--- NOTE | 2020-04-18 17:06 | Podiatry Consultation ---
Date of Consultation April 18, 2020 Assessment & Plan (1) Diabetic ulcer of left foot associated with type 2 diabetes mellitus, limited to breakdown of skin: 1.) Patient seen, evaluated, and treated 2.) WBC continuing to trend downward 3.) Reviewed MRI. MRI was with out contrast limiting ability to evaluate for Osteomyelitis. Bone marrow edema is noted on metatarsals 2 and 3 as well as proximal phalanges 2, 3, and 4. There is no signs of cortical damage. Previous abscesses noted are resolving. New fourth interspace fluid collection noted. 4.) Recommend PICC line with 6 weeks IV abx therapy upon discharge for treatment of possible OM. 5.) I&D competed to fourth interspace of right foot with out incident. See procedure note below. Wound Culture taken of Fourth interspace wound. 6.) Patient will likely require serial debridement as outpatient and this was discussed with Patient. 7.) Right foot wounds irrigated with irrisept 8.) Wound Vac applied to third interspace wound, 1/2" packing applied to plantar wound, and fourth interspace wound at today's visit. 9.) Patient is partial weight bearing to heel of right foot Thank you for allowing me to participate in the care of this Patient. Today's procedure is an excisional debridement of deep tissue, incision and drainage at bedside. There is a minimal amount of purulence and serosanguineous exudate draining from the right foot 4th interspace ulcer. The ulcer base is described as containing devitalized tissue. Necrotic or devitalized tissue is estimated to be present in approximately 50% of the ulcer bed. The ulcer has exposed full-thickness tissue in to muscle. I have informed the patient of the risks and benefit of this incision and drainage, debridement procedure and he has had the opportunity to ask questions. Appropriate consent has been obtained. The patient refused site marking. The area was prepped and draped in usual aseptic manner. The procedure was performed and a clean field. I debrided the right foot wound sharply with a sterile #15 blade and necrotic tissue was excised. Bleeding was minimal and hemostasis was achieved using pressure. Utilizing a sharp, sterile, #15 blade a plantar skin incision was created. Purulence was expelled from this incisional wound. Deep cultures were obtained. irrisept was used to flush both the fourth interspace ulcer and plantar incision wound. The wounds were packed with iodoform and saline moistened 4x4 gauze followed by dry, sterile, dressing consisting of 4x4, and Kerlix. The patient tolerated procedure and anesthesia well. Postprocedure no increased pain. Conservative wound care was rendered. We discussed the pertinent risks, benefi ts, and an alternative to the patients considered procedure, as well as the patients expectations.Surgery operations have subjective outcomes which may be dependent upon patient anatomy and expectations. While a specific result cannot be guaranteed and jonh-operative problems may occur, every effort will be made to deliver a satisfactory result in a safe and ethical manner. History of Present Illness Attending Physician: Eloy Christianson History of Present Illness Patient seen at Bedside in no acute distress. Patient had bedside I&D on 04/15/20. Although WBC trending down some symptoms still remain. He had a second MRI this morning for further eval. Wound Vac is intact and running continuos 125mmHg. Allergies Allergy/AdvReac Type Severity Reaction Status Date / Time amoxicillin AdvReac Mild Gastrointestinal Verified 04/13/20 16:27 Upset Home Medications Medication Instructions Recorded Confirmed Type amlodipine 10 mg PO QAM 04/08/19 04/13/20 History atorvastatin 80 mg PO QAM 04/08/19 04/13/20 History alprazolam 1 mg tablet 1 mg PO DAILY PRN 10/14/19 04/13/20 History bupropion HCl 150 mg tablet,12 hr 150 mg PO QAM 10/14/19 04/13/20 History sustained-release blood sugar diagnostic #10 ea 12/01/19 04/13/20 History lancets #100 ea 12/01/19 04/13/20 History pregabalin 100 mg capsule 100 mg PO BID 12/01/19 04/13/20 History lisinopril 40 mg PO HS 01/04/20 04/13/20 History multivitamin 1 tab PO QAM 01/04/20 04/13/20 History amitriptyline 25 mg PO HS 01/14/20 04/13/20 History insulin glargine 100 unit/mL (3 45 unit SQ BID #2 box 02/21/20 04/13/20 Rx mL) subcutaneous pen pen needle, diabetic 31 gauge x #200 ea 02/21/20 04/13/20 Rx 3/16" carvedilol 6.25 mg tablet 12.5 mg PO BID tab 03/21/20 04/13/20 History insulin aspart U-100 100 unit/mL 25 unit SUBCUT TIDM ml 03/21/20 04/13/20 History (3 mL) subcutaneous pen nystatin 100,000 unit/gram topical 1 applic TOPICAL DAILY 14 Days #30 03/27/20 04/13/20 Rx powder g icosapent ethyl [Vascepa] 2 g PO BID 04/13/20 04/13/20 History blood-glucose meter,continuous #1 ea 04/16/20 Rx blood-glucose sensor #3 ea 04/16/20 Rx blood-glucose transmitter #1 ea 04/16/20 Rx Patient History Medical History BJ (acute kidney injury) Chronic diarrhea reason for colonoscopy Diabetic nephropathy associated with type 2 diabetes mellitus DM neuropathy, painful DM retinopathy Habitual snoring never had a sleep study test done Hidradenitis suppurativa HTN (hypertension) Hyperlipidemia Kidney stones Morbid obesity with BMI of 45.0-49.9, adult Obesity Uncontrolled type 2 diabetes mellitus Surgical History History of cardiac cath 2014 ?? 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 History of eye surgery left eye multiple before eye removal History of tooth extraction History of wisdom tooth extraction Status post epidural steroid injection Family History Mother No problems noted. Father , Age 60, [place] Myocardial infarction Unknown Charcot-Ana disease Neuropathy Brother Family history of diabetes mellitus Other No family history of adverse response to anesthesia No significant family history Social History Smoking Status: Never smoker Second Hand Exposure: No; Do You Dip or Chew Tobacco: No; Tobacco Cessation Education Requested by Patient: No Hx Alcohol Use: No Hx Substance Use: No Preferred Language: Kazakh Communication Ability: Unable Chemist Steroids Required: No Beliefs That Will Affect Care: None marital status: Current Living Situation: Spouse current occupational status: employed Other Information That Helps Us Care for You: No Feels Safe at Home: Yes Assistive Devices: Glasses Review of Systems Constitutional: as per Subjective / HPI Eyes: Denies vision problems Respiratory: No wheezing. Regular rate and rhythm Cardiovascular: Additional Comments: Denies chest pain Gastrointestinal: Denies Abdominal pain. Belly is soft and tender. 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: INTERPRETER AND TRANSLATOR wnl to all digits of feet bilateral Focused Exam: Wound location: Right foot 3rd interspace full thickness ulcer Wound base color and depth: Wound probes to muscle and tendon, and bone Wound size (cm): 2.1 x 0.9 x 2.3cm Odor: no malodor Drainage: moderate serosanguineous exudate Undermining: minimal Borders: macerated Constitutional: well developed and well nourished Eyes: PERRL ENMT: external ear and nose normal, oropharynx normal Neck: trachea midline, no thyromegaly Respiratory: normal respiratory effort, lungs clear to auscultation Cardiovascular: Rate/Rhythm: regular rate and regular rhythm Chest (Breasts): Chest: normal inspection of chest Gastrointestinal (Abdomen): Inspection/Auscultation: abdomen normal to inspection Musculoskeletal: no cyanosis or clubbing, extremities motor strength 5/5 Head/Neck/Chest: normocephalic Skin: + ulcer (right foot) Neurologic: moves all extremities Motor/Sensory: + sensory deficit Psychiatric: A+Ox3, euthymic affect Results & Data ([facility]) Vital Signs (Past 12 Hours) Vital Signs Temp Pulse Resp BP BP Pulse Ox 04/18/20 15:43 36.9 C 80 20 148/91 H 149/96 H 94 04/18/20 07:19 36.5 C 92 H 18 156/82 H 95 MRI RESULTS 04/18/20 There is diffuse superficial and deep soft tissue edema identified throughout the forefoot. There is diffuse edema of the regional musculature. There is significant marrow edema identified within the head and neck of the second and third metatarsals. Question fracture line within the necks of the second and third metatarsals, best seen on sagittal images #15 and #19. There is also significant marrow edema identified within the second, third, and fourth proximal phalanges. Again seen is a wound between the third and fourth toes with surrounding edema. This extends towards the dorsal surface of the foot at this level. There is a wound identified along the plantar aspect of the foot with surrounding phlegmonous change. The wound measures up to 1.4 cm in length. The fluid collection at this site seen previously has largely resolved. This is deep to the shaft of the second metatarsal. There is a small developing fluid collection identified along the dorsal aspect of the foot between the fourth and fifth proximal phalanges, best seen on coronal image #16. This measures approximately 1.6 x 1.6 x 0.7 cm. Mild degenerative change is seen throughout the forefoot. IMPRESSION: 1. Motion compromised examination. 2. There is marked marrow edema identified within the head and neck of the second and third metatarsals. Question fracture lines in both metatarsal necks. This could be on a posttraumatic and/or an infectious basis. 3. Again seen is significant marrow edema within the second, third, and fourth proximal phalanges. Osteomyelitis is not excluded. 4. There is a wound along the plantar aspect of the foot with surrounding phlegmonous change at the site of a previously characterized collection. The fluid component has largely resolved. 4. Again seen is a wound between the third and fourth toes with surrounding edema. The wound extends to the dorsal surface of the foot. 5. There is a new developing dorsal fluid collection between the fourth and fifth toes. A small abscess is not excluded. 6. There is evidence of diffuse cellulitis/myositis throughout the forefoot.
[2020-04-18] MEDS: AMITRIPTYLINE HCL 25 MG TAB PO SCH (21:16)
[2020-04-18] MEDS: lisinopril 40 MG TAB PO SCH (21:18)
[2020-04-19] MEDS: CEFEPIME 2,000 MG in SYRINGE 0 ML IV SCH ×3 (03:40→21:01)
[2020-04-19 06:11] LABS: Basophils # (auto) 0.03 K/uL (0-0.2); Basophils % (auto) 0.3 %; Eosinophils # (auto) 0.31 K/uL (0-0.5); Eosinophils % (auto) 3.3 %; Hematocrit (blood only) 27.7 % (42-52); Hemoglobin 8.8 g/dL (14.0-18.0); Immature Granulocytes # (auto) 0.01 K/uL (0.00-0.02); Immature Granulocytes % (auto) 0.1 %; Lymphocytes # (auto) 2.37 K/uL (1.2-3.4); Lymphocytes % (auto) 24.9 %; Mean Corpuscular Hgb Conc 31.8 g/dL (32-36); Mean Platelet Volume 10.5 fL (7.4-10.4); Monocytes # (auto) 0.67 K/uL (0.11-0.59); Neutrophils # (auto) 6.14 K/uL (1.4-6.5); Neutrophils % (auto) 64.4 %; Platelet Count 434 K/uL (130-400); RDW Coefficient of Variation 13.4 % (11.5-14.5); RDW Standard Deviation 41.1 fL (36.4-46.3); Red Blood Count 3.26 M/uL (4.7-6.1); White Blood Count 9.53 K/uL (4.8-10.8)
[2020-04-19 06:38] LABS: Albumin Level 2.1 gm/dl (3.4-5.0); BUN Creatinine Ratio 12.7 (10-20); Calcium 8.8 mg/dl (8.5-10.1); Creatinine Clr Calc Pharmacy 62.1 ml/min; Est GFR (African American) 38.2; Est GFR (Non-African American) 32.9; Potassium 4.4 mmol/L (3.5-5.1)
[2020-04-19 06:41] LABS: Albumin Globulin Ratio 0.3 (0.9-2); Bilirubin,Total 0.3 mg/dl (0.2-1); C Reactive Protein 2.98 mg/dl (0-0.29); Globulin 6.4 gm/dl (2.5-4.0); Phosphorus 4.4 mg/dl (2.5-4.9); Total Protein 8.5 gm/dl (6.4-8.2)
[2020-04-19] MEDS: INSULIN GLARGINE SOLOSTAR 100 UNITS/ML 3 ML PEN SC SCH (08:42)
[2020-04-19] MEDS: MULTIVITAMIN TAB PO SCH (08:43)
[2020-04-19] MEDS: amLODIPine BESYLATE 5 MG TAB PO SCH (08:43)
[2020-04-19] MEDS: carvediloL 12.5 MG TAB PO SCH ×2 (08:43→20:56)
[2020-04-19] MEDS: buPROPion SR 150 MG TABCR PO SCH (08:44)
[2020-04-19] MEDS: INSULIN ASPART 100 UNITS/ML 3 ML PEN SC SCH ×4 (08:45→20:55)
[2020-04-19] MEDS: PREGABALIN 100 MG CAP PO SCH ×2 (08:53→21:01)
--- NOTE | 2020-04-19 09:07 | Hospitalist Progress Note ---
Date of Service April 19, 2020 Assessment & Plan (1) Diabetic foot ulcer with osteomyelitis: * POD# 4 S/P I and D of abscess by Dr. Puri on 04/15 * Previously failed outpatient treatment * MRI right foot showed abscess, possible developing osteo (although discussed with podiatry and does not feel any osteo) * Initially on Dapto/Cefepime * Podiatry on consult -- would benefit from [facility]drosurgery system if available -- will discuss with CM. Not likely to utilize this however patient may benefit from wound vac given the depth. Will discuss with Aimee in AM once re-eval from Dr. Puri this afternoon * Surface culture from 04/13 with staph aureus * Wound culture from I&D with the same * Antibiotics de-escalated to Ancef on 04/15 * Continue wound care and at discharge -- will need either f/u local vs with Dr. Puri * WBC now wnl at 10k, afebrile * Blood cultures NGTD -- follow * Will order PT/OT evals for today for possible home health/home therapy * Infectious disease consultation ordered for rec's at discharge --see report. ok w PO abx if thought to exclude bone, however given exam last night by podiatry with possible additional abscess/osteo from plantar wound recommended repeat MRI REPEAT MRI: * There is marked marrow edema identified within the head and neck of the second and third metatarsals. Question fracture lines in both metatarsal necks. This could be on a posttraumatic and/or an infectious basis. * Again seen is significant marrow edema within the second, third, and fourth proximal phalanges. Osteomyelitis is not excluded. * There is a wound along the plantar aspect of the foot with surrounding phlegmonous change at the site of a previously characterized collection. The fluid component has largely resolved. * Again seen is a wound between the third and fourth toes with surrounding edema. The wound extends to the dorsal surface of the foot. * There is a new developing dorsal fluid collection between the fourth and fifth toes. A small abscess is not excluded. * There is evidence of diffuse cellulitis/myositis throughout the forefoot. 04/19 * POD#1 s/p Repeat I&D on 04/18 for abscess between 4th/5th toes on RIGHT foot * Dressing change and re-application of wound vac * Dr. puri to continue daily dressing changes and will have follow up with patient once discharged * Would like to remain inpatient through the weekend * Will need PICC line and 6weeks IV abx to cover for possible OM-- this was discussed with patient and we will place PICC line in next couple of days prior to discharge * Messaged ID about repeat I&D (culture without organisms, few WBCs) without evidence of pseudomonas about continue for Cefepime (on day 2 of therapy) vs transition to agent for sole staph coverage * --> Per Dr. gupta, would wait on new cultures prior to decision to finalize abx and would continue Cefepime for time being * WBC continues to be wnl on repeat CBC. h/h low but did get some IVF yesterday. No s/sx bleeding and will continue to monitor * Afebrile * Continue to monitor daily labs (2) Diabetic ulcer of left foot associated with type 2 diabetes mellitus, limited to breakdown of skin: See above, OM not excluded on repeat imaging (contrast avoided with patient with CKD IV) (3) Uncontrolled type 2 diabetes mellitus: * Hemoglobin A1c 14 in January. * A1C: 13.4 * Total daily dose of insulin 165 units * Lantus 54 units twice daily * NovoLog: * Goal BSG Range: Low 110 mg/dL, High 140 mg/dL * Correction Factor: 5 mg/dL/unit * INS:CHO Ratio: 1unit per 5 gms CHO consumed * BSGs have been acceptable Consider addition of GLP-1 or similar for some appetite suppression as possible insulin increasing patient's hunger and still with A1c 13.4/uncontrolled Follows with Endocrinology -- discuss starting at discharge vs follow up with Endocrine to start this therapy. He follows with Harvey Aburto and has appointment with him and PCP on Apr 24 per patient Discuss[address] with Dr. Aburto on 04/18 and patient has had severely poorly controlled DM2 and was on Invokana prior to seeing them recently but was too expensive. Did not was to do a SGLT2 but did not discuss GLP-1 Will check with patients regarding medullary thyroid/etc/etc prior to starting Ozempic or similar at lowest dose and will need f/u with Endocrine (already scheduled as above) --> Plans to start low dose Ozempic at discharge and will f/u with Dr. Aburto outpatient (4) UNIQUE (obstructive sleep apnea): * Patient reports awaiting home sleep study results. * would likely have additional benefit on BP with CPAP as likely with UNIQUE (5) HTN (hypertension): * Continue lisinopril 40 mg p.o. at bedtime, amlodipine 10 mg p.o. every morning, carvedilol 12.5 mg p.o. twice daily * BP controlled at 131/88 * Continue to monitor (6) Hyperlipidemia: * Continue atorvastatin 80 mg p.o. every morning (7) Chronic kidney disease, stage IV (severe): * Not diagnostic of BJ but elevated from his baseline * Had been on continuous IVF and repeat Cr 2.36 (peaked at 3.4 on admission) and appears baseline closer to 2.4-2.8 range (possible worsening over past year given diabetes as above) * d/c'd IVF 04/17 * Repeat Cr stable at 2.39 appears to be in his range * Does not appear dry on exam -- continue to monitor daily BMP Patient had f/u appt with nephrology initially and missed appointment -- will need arranged at d/c given CKD IV and not previously established (8) DVT prophylaxis: * PT/OT consults pending (recs for walker if d/c to home) -- they do have recommendations for rehab at discharge. We will monitor progression with off- loading shoe and continued PT/OT throughout weekend but may need to discuss rehab (he would ideally like home with home health) * Will place on Heparin SQ given decrease mobility Hypomagnesemia Mag 1.7 -- 1gm IV given with repeat 2.0 Dispo: continued inpatient stay, likely through weekend Will need PICC line and IV abx for 6 weeks at discharge Admission and Anticipated Discharge Date Admission Date: April 13, 2020 Subjective Patient evaluated this morning. Doing well. Pain controlled. S/p I&D for new abscess last evening with dressing change and reapplication of wound vac. Patient previously followed with Dr. Shultz and out on maternity leave. Agreeable for follow up with Dr. Puri at discharge for current issue then possible resume f/u care with Dr. Shultz once she returns. Discussed PICC line and will place in next 1-2 days prior to d/c. Discussed Dr. Puri would be by today for dressing change but that he would like to continue inpatient stay through the weekend. Patient agreeable. No signs of pseudomonas on repeat I&D and will reach back out to ID about further recs for d/c but keep in mind patient would like home with home health at discharge so would ideally be continuous or alternative for less frequent dosing. No fever, chills, chest pain, shortness of breath, abdominal pain, nausea, vomiting, melena, hematochezia, hematuria at this time. Was seen by orthotics for new shoe. Previous only addressed prior wound and need one for better support and to have him base weight on his heel. They will be back today with new shoe/boot. Review of Systems Review of Systems: All systems reviewed & are unremarkable except as noted in HPI & below Physical Exam Physical Exam: Constitutional: well developed and + morbidly obese; well nourished and no acute distress, comfortable Eyes: + anicteric sclerae; pupils not irregular ENMT: Mouth: oral mucous membranes moist Neck: trachea midline, possible thyromegaly Respiratory: normal respiratory effort, lungs clear to auscultation, diminished breath sounds throughout, no w/c/r Cardiovascular: Rate/Rhythm: regular rhythm and tachycardic Heart Sounds: no murmur Extremities: normal capillary refill and + pedal edema (1+ b/l equal pre-tibial, improving); no calf tenderness. pulses palpable bilaterally Gastrointestinal (Abdomen): normal bowel sounds, soft, nontender, no hepatosplenomegaly Musculoskeletal: no cyanosis or clubbing, extremities motor strength 5/5 Skin: +wound vac to RIGHT foot c/d/i with brown drainage, no erythema beyond dressing noted, sensation to pressure but not to light touch. new dressing to 4/5th right digits from I&D 2/10 Callus on lateral aspect of left foot Neurologic: moves all extremities and awake; not confused Psychiatric: A+Ox3, euthymic affect Results & Data Results & Data ([facility]) Vital Signs (Past 12 Hours) Vital Signs Temp Pulse Resp BP Pulse Ox 04/19/20 07:07 36.4 C L 89 18 131/88 96 04/18/20 23:02 36.7 C 86 19 129/77 96 04/18/20 21:20 93 H 163/92 H Laboratory Results 04/19/20 04/19/20 04/19/20 Range/Units 07:35 05:44 05:44 WBC (4.8-10.8) K/uL RBC (4.7-6.1) M/uL Hgb (14.0-18.0) g/dL Hct (42-52) % MCV (80-100) fL MCH (25-34) pg MCHC (32-36) g/dL RDW Std Deviation (36.4-46.3) fL RDW Coeff of Nicky (11.5-14.5) % Plt Count (130-400) K/uL MPV (7.4-10.4) fL Immature Gran % (Auto) % Neut % (Auto) % Lymph % (Auto) % [place] % (Auto) % Eos % (Auto) % Baso % (Auto) % Neut # (Auto) (1.4-6.5) K/uL Lymph # (Auto) (1.2-3.4) K/uL [place] # (Auto) (0.11-0.59) K/uL Eos # (Auto) (0-0.5) K/uL Baso # (Auto) (0-0.2) K/uL Immature Gran # (Auto) (0.00-0.02) K/uL ESR 44 H (0-14) mm/hr Sodium 140 (136-145) mmol/L Potassium 4.4 (3.5-5.1) mmol/L Chloride 109 H (98-107) mmol/L Carbon Dioxide 25 (21-32) mmol/L Anion Gap 6.0 (3-11) BUN 30 H (7-18) mg/dl Creatinine 2.39 H (0.6-1.4) mg/dl Est Cr Clr Drug Dosing 62.1 ml/min Est GFR ( Amer) 38.2 Est GFR (Non-Af Amer) 32.9 BUN/Creatinine Ratio 12.7 (10-20) Glucose 125 H (70-99) mg/dl POC Glucose 121 H (70-99) mg/dl Calcium 8.8 (8.5-10.1) mg/dl Phosphorus 4.4 (2.5-4.9) mg/dl Magnesium 2.0 (1.8-2.4) mg/dl Total Bilirubin 0.3 (0.2-1) mg/dl AST 14 L (15-37) U/L ALT 7 L (12-78) U/L Alkaline Phosphatase 110 (45-117) U/L C-Reactive Protein 2.98 H (0-0.29) mg/dl Total Protein 8.5 H (6.4-8.2) gm/dl Albumin 2.1 L (3.4-5.0) gm/dl Globulin 6.4 H (2.5-4.0) gm/dl Albumin/Globulin Ratio 0.3 L (0.9-2) 04/19/20 04/18/20 04/18/20 Range/Units 05:44 20:09 16:36 WBC 9.53 (4.8-10.8) K/uL RBC 3.26 L (4.7-6.1) M/uL Hgb 8.8 L (14.0-18.0) g/dL Hct 27.7 L (42-52) % MCV 85.0 (80-100) fL MCH 27.0 (25-34) pg MCHC 31.8 L (32-36) g/dL RDW Std Deviation 41.1 (36.4-46.3) fL RDW Coeff of Nicky 13.4 (11.5-14.5) % Plt Count 434 H (130-400) K/uL MPV 10.5 H (7.4-10.4) fL Immature Gran % (Auto) 0.1 % Neut % (Auto) 64.4 % Lymph % (Auto) 24.9 % [place] % (Auto) 7.0 % Eos % (Auto) 3.3 % Baso % (Auto) 0.3 % Neut # (Auto) 6.14 (1.4-6.5) K/uL Lymph # (Auto) 2.37 (1.2-3.4) K/uL [place] # (Auto) 0.67 H (0.11-0.59) K/uL Eos # (Auto) 0.31 (0-0.5) K/uL Baso # (Auto) 0.03 (0-0.2) K/uL Immature Gran # (Auto) 0.01 (0.00-0.02) K/uL ESR (0-14) mm/hr Sodium (136-145) mmol/L Potassium (3.5-5.1) mmol/L Chloride (98-107) mmol/L Carbon Dioxide (21-32) mmol/L Anion Gap (3-11) BUN (7-18) mg/dl Creatinine (0.6-1.4) mg/dl Est Cr Clr Drug Dosing ml/min Est GFR ( Amer) Est GFR (Non-Af Amer) BUN/Creatinine Ratio (10-20) Glucose (70-99) mg/dl POC Glucose 118 H 120 H (70-99) mg/dl Calcium (8.5-10.1) mg/dl Phosphorus (2.5-4.9) mg/dl Magnesium (1.8-2.4) mg/dl Total Bilirubin (0.2-1) mg/dl AST (15-37) U/L ALT (12-78) U/L Alkaline Phosphatase (45-117) U/L C-Reactive Protein (0-0.29) mg/dl Total Protein (6.4-8.2) gm/dl Albumin (3.4-5.0) gm/dl Globulin (2.5-4.0) gm/dl Albumin/Globulin Ratio (0.9-2) 04/18/20 04/18/20 Range/Units 11:17 06:40 WBC (4.8-10.8) K/uL RBC (4.7-6.1) M/uL Hgb (14.0-18.0) g/dL Hct (42-52) % MCV (80-100) fL MCH (25-34) pg MCHC (32-36) g/dL RDW Std Deviation (36.4-46.3) fL RDW Coeff of Nicky (11.5-14.5) % Plt Count (130-400) K/uL MPV (7.4-10.4) fL Immature Gran % (Auto) % Neut % (Auto) % Lymph % (Auto) % [place] % (Auto) % Eos % (Auto) % Baso % (Auto) % Neut # (Auto) (1.4-6.5) K/uL Lymph # (Auto) (1.2-3.4) K/uL [place] # (Auto) (0.11-0.59) K/uL Eos # (Auto) (0-0.5) K/uL Baso # (Auto) (0-0.2) K/uL Immature Gran # (Auto) (0.00-0.02) K/uL ESR (0-14) mm/hr Sodium (136-145) mmol/L Potassium (3.5-5.1) mmol/L Chloride (98-107) mmol/L Carbon Dioxide (21-32) mmol/L Anion Gap (3-11) BUN (7-18) mg/dl Creatinine (0.6-1.4) mg/dl Est Cr Clr Drug Dosing ml/min Est GFR ( Amer) Est GFR (Non-Af Amer) BUN/Creatinine Ratio (10-20) Glucose (70-99) mg/dl POC Glucose 173 H (70-99) mg/dl Calcium (8.5-10.1) mg/dl Phosphorus 4.1 (2.5-4.9) mg/dl Magnesium 1.7 L (1.8-2.4) mg/dl Total Bilirubin (0.2-1) mg/dl AST (15-37) U/L ALT (12-78) U/L Alkaline Phosphatase (45-117) U/L C-Reactive Protein (0-0.29) mg/dl Total Protein (6.4-8.2) gm/dl Albumin (3.4-5.0) gm/dl Globulin (2.5-4.0) gm/dl Albumin/Globulin Ratio (0.9-2) PG Care Time/CCT Total # of Minutes Spent Total Time Spent with Patient: Total time spent is greater than 50% in coordination of care (as documented) at patient's floor/unit and/or counseling patient: Coding Level of Care Code 16311 Subseq Hosp Care Lvl 3 Diagnoses Diabetic foot ulcer with osteomyelitis E11.621; E11.69; L97.509; M86.9 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
[2020-04-19] MEDS: CLOTRIMAZOLE 1% CR 15 GM TUBE EXT SCH ×2 (10:45→21:02)
--- NOTE | 2020-04-19 12:02 | Pharmacy Report ---
Pharmacy Glycemic Short Note 2 - Date of Service April 19, 2020 - Glycemic Short BSG Results (Last 24 hours): 04/18/20 04/18/20 04/19/20 16:36 20:09 05:44 Glucose 125 H POC Glucose 120 H 118 H 04/19/20 04/19/20 07:35 11:33 Glucose POC Glucose 121 H 148 H OUTPATIENT ANTIDIABETIC REGIMEN: * Basaglar 45 units SQ BID * Novolog 25 units SQ TIDM + SSI (up to max of 100 units bolus insulin per day) * A1c = 13.4% (04/14/20) ASSESSMENT: 04/19: * Lex received 90 units of insulin yesterday with good glycemic control * 50 units of basal * 40 units of bolus * Fasting BSG of 121 mg/dL is improved. Continue current Lantus dose. * Post prandial BSGs improved after slightly tightening carb coverage yesterday. Will continue same for now. 04/17: * Lex received a total of 68 units of insulin yesterday * 45 units basal + 23 units bolus * BSGs over last 24 hours ranged 104 - 136 mg/dL - well controlled * Fasting BSG is controlled at 131 mg/dL this AM * No changes to insulin regimen required today as there are no changes in stressors 04/16: * Lex received a total of 83 units of insulin yesterday * 54 units basal + 29 units bolus * BSGs ranged 105 - 121 mg/dL - well controlled * Fasting BSG this morning was 104 mg/dL - well controlled * Adjusted Lantus dosing slightly so that patient received 45 units this morning which is a 17% reduction from yesterday's dose * Given HbA1c, patient could feel hypoglycemic at higher BSGs than usual. Will lower BSGs gradually. * No adjustment to Novolog made today. PLAN FOR INPATIENT GLYCEMIC CONTROL: * Basal insulin - no change * Lantus 45-55 units SQ AM (BSG < 120 mg/dL = 45 units; BSG 120 - 160 mg/dL = 50 units; BSG > 160 mg/dL = 55 units) * Bolus insulin - no change * NovoLog per scale ACHS or Q6hrs while NPO * Goal Range: Low 110 mg/dL - High 140 mg/dL * Correction Factor: 15 mg/dL/unit * Nutritional / Prandial insulin per carb ratio of 1 unit per 4 grams CHO consumed PLAN FOR DISCHARGE: * HbA1c = 13.4% is well above goal range. Would recommend a goal HbA1c of less than 7% given patient's age and comorbidities. * Patient follows with public bath attendant for diabetes management. Basaglar doses were most recently adjusted in February 2020 to 45 units BID. Given HbA1c is trending down, would not recommend any changes to insulin regimen upon discharge. Continue to follow-up with public bath attendant.
[2020-04-19] MEDS: HEPARIN SOD 5,000 UNIT/0.5 ML VIAL SQ SCH ×2 (14:49→21:02)
[2020-04-19] MEDS: ACETAMINOPHEN 325 MG TAB PO PRN (19:06)
[2020-04-19] MEDS: lisinopril 40 MG TAB PO SCH (20:56)
[2020-04-19] MEDS: AMITRIPTYLINE HCL 25 MG TAB PO SCH (20:57)
--- NOTE | 2020-04-19 21:44 | Podiatry Consultation ---
Date of Consultation April 19, 2020 Assessment & Plan (1) Diabetic ulcer of left foot associated with type 2 diabetes mellitus, limited to breakdown of skin: 1.) Patient seen, evaluated, and treated 2.) WBC continuing to trend downward 3.) Right foot wounds irrigated with irrisept 4.) Wound Vac applied to third interspace wound, 1/2" packing applied to plantar wound, and fourth interspace wound at today's visit. 5.) Patient is partial weight bearing to heel of right foot 6.) Recommend PICC line with 6 weeks IV abx therapy upon discharge for treatment of possible OM. 7.) Patient will likely require serial debridement as outpatient and this was discussed with Patient. 8.) Spoke with Kendra ed case manager for outpatient Wound Vac Thank you for allowing me to participate in the care of this Patient. History of Present Illness Attending Physician: Mustapha Coley MD History of Present Illness Patient is a type II diabetic, 39 year old male seen at bedside. Patient status post 4 days I&D to 3rd interspace and plantar foot (DOS 04/15/20), and status post 1 day I&D to fourth interspace (DOS 04/18/20). He relates no complaints. WBC continuing to trend down. Dressing is intact. Wound Vac is intact and running continuos 125mmHg. Allergies Allergy/AdvReac Type Severity Reaction Status Date / Time amoxicillin AdvReac Mild Gastrointestinal Verified 04/13/20 16:27 Upset Home Medications Medication Instructions Recorded Confirmed Type amlodipine 10 mg PO QAM 04/08/19 04/13/20 History atorvastatin 80 mg PO QAM 04/08/19 04/13/20 History alprazolam 1 mg tablet 1 mg PO DAILY PRN 10/14/19 04/13/20 History bupropion HCl 150 mg tablet,12 hr 150 mg PO QAM 10/14/19 04/13/20 History sustained-release blood sugar diagnostic #10 ea 12/01/19 04/13/20 History lancets #100 ea 12/01/19 04/13/20 History pregabalin 100 mg capsule 100 mg PO BID 12/01/19 04/13/20 History lisinopril 40 mg PO HS 01/04/20 04/13/20 History multivitamin 1 tab PO QAM 01/04/20 04/13/20 History amitriptyline 25 mg PO HS 01/14/20 04/13/20 History insulin glargine 100 unit/mL (3 45 unit SQ BID #2 box 02/21/20 04/13/20 Rx mL) subcutaneous pen pen needle, diabetic 31 gauge x #200 ea 02/21/20 04/13/20 Rx 3/16" carvedilol 6.25 mg tablet 12.5 mg PO BID tab 03/21/20 04/13/20 History insulin aspart U-100 100 unit/mL 25 unit SUBCUT TIDM ml 03/21/20 04/13/20 History (3 mL) subcutaneous pen nystatin 100,000 unit/gram topical 1 applic TOPICAL DAILY 14 Days #30 03/27/20 04/13/20 Rx powder g icosapent ethyl [Vascepa] 2 g PO BID 04/13/20 04/13/20 History blood-glucose meter,continuous #1 ea 04/16/20 Rx blood-glucose sensor #3 ea 04/16/20 Rx blood-glucose transmitter #1 ea 04/16/20 Rx Patient History Medical History BJ (acute kidney injury) Chronic diarrhea reason for colonoscopy Diabetic nephropathy associated with type 2 diabetes mellitus DM neuropathy, painful DM retinopathy Habitual snoring never had a sleep study test done Hidradenitis suppurativa HTN (hypertension) Hyperlipidemia Kidney stones Morbid obesity with BMI of 45.0-49.9, adult Obesity Uncontrolled type 2 diabetes mellitus Surgical History History of cardiac cath 2014 ?? 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 History of eye surgery left eye multiple before eye removal History of tooth extraction History of wisdom tooth extraction Status post epidural steroid injection Family History Mother No problems noted. Father , Age 60, [place] Myocardial infarction Unknown Charcot-Ana disease Neuropathy Brother Family history of diabetes mellitus Other No family history of adverse response to anesthesia No significant family history Social History Smoking Status: Never smoker Second Hand Exposure: No; Do You Dip or Chew Tobacco: No; Tobacco Cessation Education Requested by Patient: No Hx Alcohol Use: No Hx Substance Use: No Preferred Language: [place] Communication Ability: Unable Investigations Chief Required: No Beliefs That Will Affect Care: None marital status: Current Living Situation: Spouse current occupational status: employed Other Information That Helps Us Care for You: No Feels Safe at Home: Yes Assistive Devices: Special Shoe Review of Systems Constitutional: as per Subjective / HPI Eyes: Denies vision problems Respiratory: No wheezing. Regular rate and rhythm Cardiovascular: Additional Comments: Denies chest pain Gastrointestinal: Denies Abdominal pain. Belly is soft and tender. 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: [employer] wnl to all digits of feet bilateral Focused Exam: Wound location: Right foot 3rd interspace full thickness ulcer Wound base color and depth: Wound probes to muscle and tendon, and bone Wound size (cm): 2.1 x 0.9 x 2.3cm Odor: no malodor Drainage: moderate serosanguineous exudate Undermining: minimal Borders: macerated Constitutional: well developed and well nourished Eyes: PERRL ENMT: external ear and nose normal, oropharynx normal Neck: trachea midline, no thyromegaly Respiratory: normal respiratory effort, lungs clear to auscultation Cardiovascular: Rate/Rhythm: regular rate and regular rhythm Chest (Breasts): Chest: normal inspection of chest Gastrointestinal (Abdomen): Inspection/Auscultation: abdomen normal to inspection Musculoskeletal: no cyanosis or clubbing, extremities motor strength 5/5 Head/Neck/Chest: normocephalic Skin: + ulcer (right foot) Neurologic: moves all extremities Motor/Sensory: + sensory deficit Psychiatric: A+Ox3, euthymic affect Results & Data ([facility]) Vital Signs (Past 12 Hours) Vital Signs Temp Pulse Resp BP Pulse Ox 04/19/20 15:19 36.5 C 85 18 133/73 98
[2020-04-19] MEDS ORDERED: MoRPHine SULFATE 2 MG/ML CARP IV STA (21:45)
[2020-04-19 22:22] LABS: Appearance Urine Cloudy (Clear); Bacteria Urine Automated Negative (Negative); Bilirubin Urine Negative (Negative); Blood Urine 1+ (Negative); Color Urine Yellow; Epithelial Cell Urine Auto >30 /lpf (0-5); Glucose Urine UA 1+ (Negative); Ketones Urine Negative (Negative); Leukocyte Esterase Urine Negative (Negative); Nitrite Urine Negative (Negative); Protein Urine 4+ (Negative); Specific Gravity Urine 1.041 (1.000-1.030); Urobilinogen Urine Negative (Negative)
[2020-04-19 22:45] LABS: Mucus Urine Present (None Prsent)
[2020-04-20] MEDS: CEFEPIME 2,000 MG in SYRINGE 0 ML IV SCH ×2 (03:30→12:47)
[2020-04-20 06:01] LABS: Hematocrit (blood only) 33.3 % (42-52); Hemoglobin 10.5 g/dL (14.0-18.0); Mean Corpuscular Hemoglobin 26.7 pg (25-34); Mean Corpuscular Hgb Conc 31.5 g/dL (32-36); Mean Corpuscular Volume 84.7 fL (80-100); Mean Platelet Volume 10.7 fL (7.4-10.4); Platelet Count 454 K/uL (130-400); RDW Coefficient of Variation 13.4 % (11.5-14.5); RDW Standard Deviation 41.2 fL (36.4-46.3); Red Blood Count 3.93 M/uL (4.7-6.1); White Blood Count 13.18 K/uL (4.8-10.8)
[2020-04-20 06:29] LABS: BUN Creatinine Ratio 13.1 (10-20); Creatinine Clr Calc Pharmacy 50.1 ml/min; Est GFR (African American) 29.5; Est GFR (Non-African American) 25.4; Magnesium 1.8 mg/dl (1.8-2.4); Potassium 4.8 mmol/L (3.5-5.1)
[2020-04-20 06:32] LABS: Albumin Globulin Ratio 0.3 (0.9-2); Bilirubin,Total 0.2 mg/dl (0.2-1); Globulin 5.8 gm/dl (2.5-4.0); Phosphorus 4.6 mg/dl (2.5-4.9); Total Protein 7.8 gm/dl (6.4-8.2)
[2020-04-20] MEDS: HEPARIN SOD 5,000 UNIT/0.5 ML VIAL SQ SCH ×3 (06:34→21:04)
[2020-04-20] MEDS: INSULIN ASPART 100 UNITS/ML 3 ML PEN SC SCH ×4 (08:37→21:03)
[2020-04-20] MEDS: amLODIPine BESYLATE 5 MG TAB PO SCH (08:38)
[2020-04-20] MEDS: carvediloL 12.5 MG TAB PO SCH ×2 (08:39→21:03)
[2020-04-20] MEDS: buPROPion SR 150 MG TABCR PO SCH (08:39)
[2020-04-20] MEDS: MULTIVITAMIN TAB PO SCH (08:39)
[2020-04-20] MEDS: INSULIN GLARGINE SOLOSTAR 100 UNITS/ML 3 ML PEN SC SCH (08:40)
[2020-04-20 08:57] LABS: Basophils # (auto) 0.04 K/uL (0-0.2); Basophils % (auto) 0.3 %; Eosinophils # (auto) 0.33 K/uL (0-0.5); Eosinophils % (auto) 2.6 %; Immature Granulocytes % (auto) 0.8 %; Lymphocytes # (auto) 3.49 K/uL (1.2-3.4); Lymphocytes % (auto) 27.2 %; Monocytes # (auto) 1.23 K/uL (0.11-0.59); Monocytes % (auto) 9.6 %; Neutrophils # (auto) 7.62 K/uL (1.4-6.5); Neutrophils % (auto) 59.5 %
[2020-04-20] MEDS: SODIUM CHLORIDE 0.9% 1000ML 1,000 ML IV SCH ×2 (09:00→17:42)
[2020-04-20] MEDS: PREGABALIN 100 MG CAP PO SCH ×2 (09:02→21:11)
[2020-04-20] MEDS: CLOTRIMAZOLE 1% CR 15 GM TUBE EXT SCH ×2 (09:02→21:12)
--- NOTE | 2020-04-20 11:25 | Nephrology Consultation ---
Date of Consultation April 20, 2020 Assessment & Plan (1) BJ (acute kidney injury): 39 y o m admitted with right foot nonhealing diabetic ulcer and osteomyelitis with failed outpatient antibiotic. Blood culture negative, wound culture growing MSSA Initially received vancomycin, currently on cefepime. Has stage IIIB/4 CKD secondary to diabetic nephropathy with high-grade proteinuria, baseline creatinine 2-2.5, on admission found to have AK creatinine 3.4 which is slightly improved to 3.0 today. Has been taking NSAID pretty regularly. BJ hemodynamically mediated with underlying advanced CKD. --OK to continue on IV fluid for now as he was net negative >2 L, monitor intake/output, aim for net even --monitor renal function closely, electrolyte has been acceptable --Epogen 37129 units x 1 dose , venofer 200 mg IV /d --dose meds for GFR <3--high risk for CKD progression considering high-grade proteinuria, poorly-controlled diabetes and multiple other significant comorbidities. --left arm nephrology precaution Will follow Thank you for allowing me to participate in your patient's care. It was a pleasure to see Scar (2) Chronic kidney disease, stage IV (severe): (3) Proteinuria: (4) Diabetic ulcer of left foot associated with type 2 diabetes mellitus, limited to breakdown of skin: (5) HTN (hypertension): (6) Diabetic nephropathy associated with type 2 diabetes mellitus: (7) Uncontrolled type 2 diabetes mellitus: (8) Anemia due to chronic kidney disease: History of Present Illness Reason for Consultation: BJ, CKD, proteinuria Attending Physician: Mustapha Coley MD History of Present Illness Mr. Manzano see 39-year-old young male with past medical history significant for stage IIIB CKD, hypertension, diabetes with multiple complication admitted to the hospital with nonhealing right foot diabetic ulcer with failed outpatient antibiotic. Nephrology consult was requested to manage AK with advanced CKD and proteinuria. Electronic medical records were reviewed in detail in patient's visit. Scar was admitted to hospital with right foot nonhealing diabetic ulcer with o steomyelitis after he was referred to ER from wound care with failed outpatient antibiotics. He was on Bactrim however recently when he visited on care the wound seem to be much worse. MRI showed osteomyelitis, initially he received vancomycin, currently on cefepime. Blood culture negative, wound culture growing MSSA. Has wound VAC in place. Has hypertension and diabetes for almost 20 years, both seem to be poorly controlled. History of coronary artery disease, CHF. Has been on lisinopril 40 mg, amlodipine 10 mg daily. Diabetes with multiple complications including retinopathy, peripheral neuropathy and peripheral vascular disease as well as nephropathy. Recent A1c was 13.4. Has high-grade proteinuria. CT abdomen pelvis in January showed otherwise normal kidneys with no hydronephrosis, no nephrolithiasis. Baselines creatinine has been quite variable from 2.0-2.5. On admission creatinine was 3.4 which slightly improved but again up to 3 this morning. He reports being on diuretics before however none sent in his EMR. Has been taking Aleve pretty regularly. No hyperkalemia or metabolic acidosis. Has chronic anemia, hemoglobin around 10.5. Has leukocytosis. Ferritin was 430 and T sat was 10. Is a nonsmoker. Denies any family history of chronic kidney disease or end- stage renal disease. He moved to [place] from [place] almost a year ago, currently works at [employer] Has been voiding normally, denies dysuria, hematuria. No significant lower extremity edema. No shortness of breath, fever chills. Allergies Allergy/AdvReac Type Severity Reaction Status Date / Time amoxicillin AdvReac Mild Gastrointestinal Verified 04/13/20 16:27 Upset Home Medications Medication Instructions Recorded Confirmed Type amlodipine 10 mg PO QAM 04/08/19 04/13/20 History atorvastatin 80 mg PO QAM 04/08/19 04/13/20 History alprazolam 1 mg tablet 1 mg PO DAILY PRN 10/14/19 04/13/20 History bupropion HCl 150 mg tablet,12 hr 150 mg PO QAM 10/14/19 04/13/20 History sustained-release blood sugar diagnostic #10 ea 12/01/19 04/13/20 History lancets #100 ea 12/01/19 04/13/20 History pregabalin 100 mg capsule 100 mg PO BID 12/01/19 04/13/20 History lisinopril 40 mg PO HS 01/04/20 04/13/20 History multivitamin 1 tab PO QAM 01/04/20 04/13/20 History amitriptyline 25 mg PO HS 01/14/20 04/13/20 History insulin glargine 100 unit/mL (3 45 unit SQ BID #2 box 02/21/20 04/13/20 Rx mL) subcutaneous pen pen needle, diabetic 31 gauge x #200 ea 02/21/20 04/13/20 Rx 3/16" carvedilol 6.25 mg tablet 12.5 mg PO BID tab 03/21/20 04/13/20 History insulin aspart U-100 100 unit/mL 25 unit SUBCUT TIDM ml 03/21/20 04/13/20 History (3 mL) subcutaneous pen nystatin 100,000 unit/gram topical 1 applic TOPICAL DAILY 14 Days #30 03/27/20 04/13/20 Rx powder g icosapent ethyl [Vascepa] 2 g PO BID 04/13/20 04/13/20 History blood-glucose meter,continuous #1 ea 04/16/20 Rx blood-glucose sensor #3 ea 04/16/20 Rx blood-glucose transmitter #1 ea 04/16/20 Rx Patient History Medical History (Updated 04/20/20 @ 11:23 by Fannie Fonseca MD) BJ (acute kidney injury) Anemia due to chronic kidney disease Chronic diarrhea reason for colonoscopy Diabetic nephropathy associated with type 2 diabetes mellitus DM neuropathy, painful DM retinopathy Habitual snoring never had a sleep study test done Hidradenitis suppurativa HTN (hypertension) Hyperlipidemia Kidney stones Morbid obesity with BMI of 45.0-49.9, adult Obesity Proteinuria Uncontrolled type 2 diabetes mellitus Surgical History History of cardiac cath 2014 ?? 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 History of eye surgery left eye multiple before eye removal History of tooth extraction History of wisdom tooth extraction Status post epidural steroid injection Family History Mother No problems noted. Father , Age 60, [place] Myocardial infarction Unknown Charcot-Ana disease Neuropathy Brother Family history of diabetes mellitus Other No family history of adverse response to anesthesia No significant family history Social History Smoking Status: Never smoker Second Hand Exposure: No; Do You Dip or Chew Tobacco: No; Tobacco Cessation Education Requested by Patient: No Hx Alcohol Use: No Hx Substance Use: No Preferred Language: Korean Communication Ability: Unable Grain Drier Required: No Beliefs That Will Affect Care: None marital status: Current Living Situation: Spouse current occupational status: employed Other Information That Helps Us Care for You: No Feels Safe at Home: Yes Assistive Devices: Special Shoe Review of Systems Review of Systems: All systems reviewed & are unremarkable except as noted in Subjective Physical Exam Constitutional: WD/WN, vitals as above + obese; no acute distress Eyes: PERRL, conjunctivae normal, anicteric sclerae ENMT: external ear and nose normal, oropharynx normal Ears: no hearing impairment Neck: trachea midline Respiratory: normal respiratory effort, lungs clear to auscultation no cough Auscultation: no crackles, no rales and no wheezes Cardiovascular: RRR, no murmur, no edema Gastrointestinal (Abdomen): normal bowel sounds, soft, nontender, no hepatosplenomegaly Percussion/Palpation: abdomen nontender, no guarding and abdomen not rigid Musculoskeletal: Extremities: extremities normal to inspection Gait: normal gait RT foot nonhealing ulcer in dressing and has wound VAC in place. Skin: no rashes, warm and dry Neurologic: moves all extremities and awake Psychiatric: A+Ox3, euthymic affect Results & Data ([facility]) Vital Signs (Past 12 Hours) Vital Signs Temp Pulse Resp BP Pulse Ox 04/20/20 07:40 36.7 C 83 20 133/77 97 PG Care Time/CCT Total # of Minutes Spent Total Time Spent with Patient: Total time spent is greater than 50% in coordination of care (as documented) at patient's floor/unit and/or counseling patient: Coding Level of Care Code 17558 Inpt Consult Level 5 Diagnoses BJ (acute kidney injury) N17.9 Chronic kidney disease, stage IV (severe) N18.4 Proteinuria R80.9 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
--- NOTE | 2020-04-20 12:00 | Pharmacy Report ---
Pharmacy Glycemic Short Note 2 - Date of Service April 20, 2020 - Glycemic Short BSG Results (Last 24 hours): OUTPATIENT ANTIDIABETIC REGIMEN: * Basaglar 45 units SQ BID * Novolog 25 units SQ TIDM + SSI (up to max of 100 units bolus insulin per day) * A1c = 13.4% (04/14/20) ASSESSMENT: 04/20: * Patient received a total of 92 units of insulin yesterday with good glycemic control * 50 units basal + 42 units bolus * BSGs were 142-462-894-142 mg/dL * Fasting BSG is well controlled at 133 mg/dL today. Lunch BSG was slightly e levated at 174 mg/dL. * Will not make any adjustments to insulin regimen today as patient has been well controlled for last 72 hours on this regimen. 04/19: * Lex received 90 units of insulin yesterday with good glycemic control * 50 units of basal * 40 units of bolus * Fasting BSG of 121 mg/dL is improved. Continue current Lantus dose. * Post prandial BSGs improved after slightly tightening carb coverage yesterday. Will continue same for now. PLAN FOR INPATIENT GLYCEMIC CONTROL: * Basal insulin - no change * Lantus 45-55 units SQ AM (BSG < 120 mg/dL = 45 units; BSG 120 - 160 mg/dL = 50 units; BSG > 160 mg/dL = 55 units) * Bolus insulin - no change * NovoLog per scale ACHS or Q6hrs while NPO * Goal Range: Low 110 mg/dL - High 140 mg/dL * Correction Factor: 15 mg/dL/unit * Nutritional / Prandial insulin per carb ratio of 1 unit per 4 grams CHO consumed PLAN FOR DISCHARGE: * HbA1c = 13.4% is well above goal range. Would recommend a goal HbA1c of less than 7% given patient's age and comorbidities. * [facility]. Basaglar doses were most recently adjusted in February 2020 to 45 units BID. Given HbA1c is trending down, would not recommend any changes to insulin regimen upon discharge. Continue to follow-up with [facility].
[2020-04-20] MEDS: IRON SUCROSE 200 MG in 0.9 % SODIUM CHLORIDE 100 ML IV SCH (12:47)
--- NOTE | 2020-04-20 13:50 | Hospitalist Progress Note ---
Date of Service April 20, 2020 Assessment & Plan (1) Diabetic foot ulcer with osteomyelitis: POD# 5 S/P I and D of abscess by Dr. Nguyen on 04/15 * Previously failed outpatient treatment * MRI right foot showed abscess, possible developing osteo (although discussed with podiatry and does not feel any osteo) * Initially on Dapto/Cefepime however abx de-escalated to Ancef on 04/15 for cultures with staph species x 2 * Continue wound care and at discharge * Blood cultures NGTD FINAL Infectious disease consultation ordered for rec's at discharge --see report. ok w PO abx if thought to exclude bone, however given exam prior evening with discharge concerning for pseudomonasa and abx broadened to Cefepime (on day 3 of therapy) REPEAT MRI: * There is marked marrow edema identified within the head and neck of the second and third metatarsals. Question fracture lines in both metatarsal necks. This could be on a posttraumatic and/or an infectious basis. * Again seen is significant marrow edema within the second, third, and fourth proximal phalanges. Osteomyelitis is not excluded. * There is a wound along the plantar aspect of the foot with surrounding phlegmonous change at the site of a previously characterized collection. The fluid component has largely resolved. * Again seen is a wound between the third and fourth toes with surrounding edema. The wound extends to the dorsal surface of the foot. * There is a new developing dorsal fluid collection between the fourth and fifth toes. A small abscess is not excluded. * There is evidence of diffuse cellulitis/myositis throughout the forefoot. 04/20 POD#2 s/p Repeat I&D on 04/18 for abscess between 4th/5th toes on RIGHT foot * Dressing change and re-application of wound vac * Dr. nguyen to continue daily dressing changes and will have follow up with patient once discharged * Wound cx with staph species * Would like to remain inpatient through the weekend * Will need PICC line and 6weeks IV abx to cover for possible OM-- this was discussed with patient and we will place PICC line in next couple of days prior to discharge * Messaged ID about repeat I&D (culture without organisms, few WBCs) without evidence of pseudomonas about continue for Cefepime (on day 3 of therapy) vs transition to agent for sole staph coverage *WBC and ESR trending up today to 13k (prior 9.5k) and 68 (44) and CRP trending down * Has been afebrile though. * --> Contacted Dr. Elena from ID about abx choice and possibly less staph coverage with switch to Cefepime now that repeat cx with staph species and no evidence of pseudomonas * Will consult ortho in case of need for OR if source control not obtained for OM * Consulted nephrology as Cr elevated to 2.96 from 2.39 -- had net negative 2L yesterday * Also to give Epogen and IV Venofer * Placed on IVF NSS @ 125cc but will increase to 150cc/hr and continue * Consider switching abx back to Ancef this evening pending response from ID as messaged above (2) Diabetic ulcer of left foot associated with type 2 diabetes mellitus, limited to breakdown of skin: * See above, OM not excluded on repeat imaging (contrast avoided with patient with CKD IV) (3) Uncontrolled type 2 diabetes mellitus: * Hemoglobin A1c 14 in January. * A1C: 13.4 * Total daily dose of insulin 165 units * Lantus 54 units twice daily * NovoLog: * Goal BSG Range: Low 110 mg/dL, High 140 mg/dL * Correction Factor: 5 mg/dL/unit * INS:CHO Ratio: 1unit per 5 gms CHO consumed * BSGs have been acceptable * Consider addition of GLP-1 or similar for some appetite suppression as possible insulin increasing patient's hunger and still with A1c 13.4/uncontrolled * Follows with Endocrinology -- discuss starting at discharge vs follow up with Endocrine to start this therapy. He follows with Harvey Aburto and has appointment with him and PCP on Apr 24 per patient * Discussed with Dr. Aburto on 04/18 and patient has had severely poorly controlled DM2 and was on Invokana prior to seeing them recently but was too expensive. Did not was to do a SGLT2 but did not discuss GLP-1 * Will check with patients regarding medullary thyroid/etc/etc prior to starting Ozempic or similar at lowest dose and will need f/u with Endocrine (already scheduled as above) * --> Plans to start low dose Ozempic at discharge and will f/u with Dr. Aburto outpatient (4) UNIQUE (obstructive sleep apnea): * Patient reports awaiting home sleep study results. * would likely have additional benefit on BP with CPAP as likely with UNIQUE (5) HTN (hypertension): * Continue amlodipine 10 mg p.o. every morning, carvedilol 12.5 mg p.o. twice daily * Hold lisinopril 40 mg p.o. at bedtime for elevated Cr * BP controlled at 111/72 * Continue to monitor (6) Hyperlipidemia: * Continue atorvastatin 80 mg p.o. every morning (7) Chronic kidney disease, stage IV (severe): * Not diagnostic of BJ but elevated from his baseline * Had been on continuous IVF due to Cr peaked at 3.4 on admission-- appears baseline closer to 2.4-2.8 range (possible worsening over past year given di abetes as above) * d/c'd IVF 04/17 * Repeat Cr stable at 2.39 but net negative 2L over last 24 hours and repeat Cr elevated to 2.79 * Started IVF evening 04/19 and increased to 150cc/hr today to maintain even balance * Nephrology consulted as above * Patient had f/u appt with nephrology initially and missed appointment -- will need arranged at d/c given CKD IV and not previously established * Stated difficulty starting urine stream last night and had reported green discharge after reportedly bearing down. Hx stones reported without need for intervention * UA with proteinuria, RBC, WBC, Epi >30 * Will obtain renal/bladder US for evaluation (8) DVT prophylaxis: * PT/OT consults pending (recs for walker if d/c to home) -- they do have recommendations for rehab at discharge. We will monitor progression with off- loading shoe and continued PT/OT throughout weekend but may need to discuss rehab (he would ideally like home with home health) * Heparin SQ given decrease mobility Hypomagnesemia Mag 1.7 and replaced with repeat wnl Dispo: continued inpatient stay, likely through weekend Will need PICC line and IV abx for 6 weeks at discharge CM following and helping to arrange wound vac at discharge Admission and Anticipated Discharge Date Admission Date: April 13, 2020 Subjective Patient evaluated early this afternoon. Feeling well but did have bladder pain last evening and had to bear down in order to urinate. He states this issue has been chronic and comes and goes. Typically once present it will last 2-3 days and then go away. He does not have any pain currently reported. Did get 1x dose of morphine last evening. Does have history of kidney stones suspected but had passed without intervention. States once he was able to "uncork" blockage last night he states his urine was greenish in color. No further pain reported. Will get renal US for evaluation. Nephrology evaluation this morning. Discussed elevated WBC today and possible switch back to Ancef this afternoon once I hear back from Dr. Elena from ID given repeat cultures from I&D on 04/18 with staph species. No fever, chills, chest pain, shortness of breath, abdominal pain, nausea at this time. Questions/concerns addressed. Review of Systems Review of Systems: All systems reviewed & are unremarkable except as noted in HPI & below Physical Exam Physical Exam: Constitutional: well developed and + morbidly obese; no acute distress, comfortable and sleeping in bed upon arrival Eyes: + anicteric sclerae; pupils not irregular ENMT: Mouth: oral mucous membranes moist Neck: trachea midline, possible thyromegaly Respiratory: normal respiratory effort, lungs clear to auscultation, diminished breath sounds throughout, no w/c/r Cardiovascular: Rate/Rhythm: regular rhythm and tachycardic Heart Sounds: no murmur Extremities: normal capillary refill ; no calf tenderness. pulses palpable bilaterally Gastrointestinal (Abdomen): normal bowel sounds, soft, nontender, no hepatosplenomegaly Musculoskeletal: no cyanosis or clubbing, extremities motor strength 5/5 Neurologic: moves all extremities and awake; not confused Psychiatric: A+Ox3, euthymic affect Skin: +wound vac to RIGHT foot with brown drainage ulcer between 3rd interspace no erythema beyond dressing noted sensation to pressure but not light touch additional dressing to 4/5th digits c/d/i Callus on lateral aspect of left foot Results & Data Results & Data ([facility]) Vital Signs (Past 12 Hours) Vital Signs Temp Pulse Resp BP Pulse Ox 04/20/20 12:07 36.5 C 86 20 111/72 98 04/20/20 07:40 36.7 C 83 20 133/77 97 Laboratory Results 04/20/20 04/20/20 04/20/20 Range/Units 11:46 07:34 05:27 WBC (4.8-10.8) K/uL RBC (4.7-6.1) M/uL Hgb (14.0-18.0) g/dL Hct (42-52) % MCV (80-100) fL MCH (25-34) pg MCHC (32-36) g/dL RDW Std Deviation (36.4-46.3) fL RDW Coeff of Nicky (11.5-14.5) % Plt Count (130-400) K/uL MPV (7.4-10.4) fL Immature Gran % (Auto) % Neut % (Auto) % Lymph % (Auto) % Stark % (Auto) % Eos % (Auto) % Baso % (Auto) % Neut # (Auto) (1.4-6.5) K/uL Lymph # (Auto) (1.2-3.4) K/uL Stark # (Auto) (0.11-0.59) K/uL Eos # (Auto) (0-0.5) K/uL Baso # (Auto) (0-0.2) K/uL Immature Gran # (Auto) (0.00-0.02) K/uL ESR (0-14) mm/hr Sodium (136-145) mmol/L Potassium (3.5-5.1) mmol/L Chloride (98-107) mmol/L Carbon Dioxide (21-32) mmol/L Anion Gap (3-11) BUN (7-18) mg/dl Creatinine (0.6-1.4) mg/dl Est Cr Clr Drug Dosing ml/min Est GFR ( Amer) Est GFR (Non-Af Amer) BUN/Creatinine Ratio (10-20) Glucose (70-99) mg/dl POC Glucose 174 H 133 H (70-99) mg/dl Calcium (8.5-10.1) mg/dl Phosphorus (2.5-4.9) mg/dl Magnesium (1.8-2.4) mg/dl Total Bilirubin (0.2-1) mg/dl AST (15-37) U/L ALT (12-78) U/L Alkaline Phosphatase (45-117) U/L C-Reactive Protein 2.18 H (0-0.29) mg/dl Total Protein (6.4-8.2) gm/dl Albumin (3.4-5.0) gm/dl Globulin (2.5-4.0) gm/dl Albumin/Globulin Ratio (0.9-2) Urine Color Urine Appearance (Clear) Urine pH (4.5-7.5) Ur Specific [place] (1.000-1.030) Urine Protein (Negative) Urine Glucose (UA) (Negative) Urine Ketones (Negative) Urine Blood (Negative) Urine Nitrite (Negative) Urine Bilirubin (Negative) Urine Urobilinogen (Negative) Ur Leukocyte Esterase (Negative) Urine WBC (Auto) (0-5) /hpf Urine RBC (Auto) (0-4) /hpf U Hyaline Cast (Auto) (0-5) /lpf U Epithel Cells (Auto) (0-5) /lpf Urine Bacteria (Auto) (Negative) Ur Renal Epithelial Cell Urine Mucus (None Prsent) 04/20/20 04/20/20 04/20/20 Range/Units 05:27 05:27 05:27 WBC 13.18 H (4.8-10.8) K/uL RBC 3.93 L (4.7-6.1) M/uL Hgb 10.5 L (14.0-18.0) g/dL Hct 33.3 L (42-52) % MCV 84.7 (80-100) fL MCH 26.7 (25-34) pg MCHC 31.5 L (32-36) g/dL RDW Std Deviation 41.2 (36.4-46.3) fL RDW Coeff of Nicky 13.4 (11.5-14.5) % Plt Count 454 H (130-400) K/uL MPV 10.7 H (7.4-10.4) fL Immature Gran % (Auto) 0.8 % Neut % (Auto) 59.5 % Lymph % (Auto) 27.2 % Stark % (Auto) 9.6 % Eos % (Auto) 2.6 % Baso % (Auto) 0.3 % Neut # (Auto) 7.62 H (1.4-6.5) K/uL Lymph # (Auto) 3.49 H (1.2-3.4) K/uL Stark # (Auto) 1.23 H (0.11-0.59) K/uL Eos # (Auto) 0.33 (0-0.5) K/uL Baso # (Auto) 0.04 (0-0.2) K/uL Immature Gran # (Auto) 0.10 H (0.00-0.02) K/uL ESR 68 H (0-14) mm/hr Sodium 139 (136-145) mmol/L Potassium 4.8 (3.5-5.1) mmol/L Chloride 108 H (98-107) mmol/L Carbon Dioxide 25 (21-32) mmol/L Anion Gap 6.0 (3-11) BUN 39 H (7-18) mg/dl Creatinine 2.96 H D (0.6-1.4) mg/dl Est Cr Clr Drug Dosing 50.1 ml/min Est GFR ( Amer) 29.5 Est GFR (Non-Af Amer) 25.4 BUN/Creatinine Ratio 13.1 (10-20) Glucose 139 H (70-99) mg/dl POC Glucose (70-99) mg/dl Calcium 9.0 (8.5-10.1) mg/dl Phosphorus 4.6 (2.5-4.9) mg/dl Magnesium 1.8 (1.8-2.4) mg/dl Total Bilirubin 0.2 (0.2-1) mg/dl AST 9 L (15-37) U/L ALT 7 L (12-78) U/L Alkaline Phosphatase 93 (45-117) U/L C-Reactive Protein (0-0.29) mg/dl Total Protein 7.8 (6.4-8.2) gm/dl Albumin 2.0 L (3.4-5.0) gm/dl Globulin 5.8 H (2.5-4.0) gm/dl Albumin/Globulin Ratio 0.3 L (0.9-2) Urine Color Urine Appearance (Clear) Urine pH (4.5-7.5) Ur Specific [place] (1.000-1.030) Urine Protein (Negative) Urine Glucose (UA) (Negative) Urine Ketones (Negative) Urine Blood (Negative) Urine Nitrite (Negative) Urine Bilirubin (Negative) Urine Urobilinogen (Negative) Ur Leukocyte Esterase (Negative) Urine WBC (Auto) (0-5) /hpf Urine RBC (Auto) (0-4) /hpf U Hyaline Cast (Auto) (0-5) /lpf U Epithel Cells (Auto) (0-5) /lpf Urine Bacteria (Auto) (Negative) Ur Renal Epithelial Cell Urine Mucus (None Prsent) 04/19/20 04/19/20 04/19/20 Range/Units 21:31 20:14 16:35 WBC (4.8-10.8) K/uL RBC (4.7-6.1) M/uL Hgb (14.0-18.0) g/dL Hct (42-52) % MCV (80-100) fL MCH (25-34) pg MCHC (32-36) g/dL RDW Std Deviation (36.4-46.3) fL RDW Coeff of Nicky (11.5-14.5) % Plt Count (130-400) K/uL MPV (7.4-10.4) fL Immature Gran % (Auto) % Neut % (Auto) % Lymph % (Auto) % Stark % (Auto) % Eos % (Auto) % Baso % (Auto) % Neut # (Auto) (1.4-6.5) K/uL Lymph # (Auto) (1.2-3.4) K/uL Stark # (Auto) (0.11-0.59) K/uL Eos # (Auto) (0-0.5) K/uL Baso # (Auto) (0-0.2) K/uL Immature Gran # (Auto) (0.00-0.02) K/uL ESR (0-14) mm/hr Sodium (136-145) mmol/L Potassium (3.5-5.1) mmol/L Chloride (98-107) mmol/L Carbon Dioxide (21-32) mmol/L Anion Gap (3-11) BUN (7-18) mg/dl Creatinine (0.6-1.4) mg/dl Est Cr Clr Drug Dosing ml/min Est GFR ( Amer) Est GFR (Non-Af Amer) BUN/Creatinine Ratio (10-20) Glucose (70-99) mg/dl POC Glucose 142 H 120 H (70-99) mg/dl Calcium (8.5-10.1) mg/dl Phosphorus (2.5-4.9) mg/dl Magnesium (1.8-2.4) mg/dl Total Bilirubin (0.2-1) mg/dl AST (15-37) U/L ALT (12-78) U/L Alkaline Phosphatase (45-117) U/L C-Reactive Protein (0-0.29) mg/dl Total Protein (6.4-8.2) gm/dl Albumin (3.4-5.0) gm/dl Globulin (2.5-4.0) gm/dl Albumin/Globulin Ratio (0.9-2) Urine Color Yellow Urine Appearance Cloudy A (Clear) Urine pH 7.0 (4.5-7.5) Ur Specific [place] 1.041 H (1.000-1.030) Urine Protein 4+ H (Negative) Urine Glucose (UA) 1+ H (Negative) Urine Ketones Negative (Negative) Urine Blood 1+ H (Negative) Urine Nitrite Negative (Negative) Urine Bilirubin Negative (Negative) Urine Urobilinogen Negative (Negative) Ur Leukocyte Esterase Negative (Negative) Urine WBC (Auto) 1-5 (0-5) /hpf Urine RBC (Auto) 10-30 H (0-4) /hpf U Hyaline Cast (Auto) 10-30 H (0-5) /lpf U Epithel Cells (Auto) >30 H (0-5) /lpf Urine Bacteria (Auto) Negative (Negative) Ur Renal Epithelial Cell Not Reportable Urine Mucus Present A (None Prsent) PG Care Time/CCT Total # of Minutes Spent Total Time Spent with Patient: Total time spent is greater than 50% in coordination of care (as documented) at patient's floor/unit and/or counseling patient: Coding Level of Care Code 95843 Subseq Hosp Care Lvl 3 Diagnoses Diabetic foot ulcer with osteomyelitis E11.621; E11.69; L97.509; M86.9 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
[2020-04-20] MEDS ORDERED: EPOETIN ALFA 20,000 UNITS/ML VIAL SQ SCH (14:00)
--- NOTE | 2020-04-20 17:08 | Ultrasound Report ---
EXAMINATION: RENAL ULTRASOUND CLINICAL HISTORY: bladder pain, hesitancy, elevated Cr, hx stones COMPARISON STUDY: CT scan dated 01/11/2020 FINDINGS: The right kidney measures 12.7 cm. The left kidney measures 12.8 cm. There is no evidence of hydronephrosis. There are no renal masses. There is borderline increase in renal cortical echogen icity There is mild bladder wall thickening. Neither ureteral jet was visualized. The bladder was mildly di stended. IMPRESSION : 1. Mild bladder distention with mild bladder wall thickening 2. No evidence of hydronephrosis 3. Borderline increase in renal cortical echogenicity ACT 112: Negative or not required by law. Electronically signed by: Denton Patton M.D. 04/20/2020 5:07 PM
[2020-04-20] MEDS: AMITRIPTYLINE HCL 25 MG TAB PO SCH (21:03)
--- NOTE | 2020-04-20 22:24 | Podiatry Consultation ---
Date of Consultation April 20, 2020 Assessment & Plan (1) Diabetic ulcer of left foot associated with type 2 diabetes mellitus, limited to breakdown of skin: 1.) Patient seen, evaluated, and treated 2.) WBC elevated at today's visit and Purulent drainage was observed on packing. 3.) Will review availability of nuclear medicine and use WBC tagged Bone Scan or possibly 4 phase bone scan for evaluation of possibly osteomyelitis 4.) ID made aware that IV abx should be appropriate for treatment of osteomyelitis 5.) Reviewed Nephrology note and yesterday's Urine culture ruling out UTI. Elevated WBC count probable due to Diabetic foot infection 3.) Wound Vac was discontinued overnight will re-evaluated in morning 5.) Dressing and packing changed to BID rather than QD. Plantar wound, third and fourth interspace wounds packed with 1" iodoform. 5.) Patient is partial weight bearing to heel of right foot 6.) Recommend PICC line with 6 weeks IV abx therapy upon discharge for treatment of possible OM. 7.) Patient will likely require serial debridement as outpatient and this was discussed with Patient. Thank you for allowing me to participate in the care of this Patient. History of Present Illness Attending Physician: Mustapha Coley MD Allergies Allergy/AdvReac Type Severity Reaction Status Date / Time amoxicillin AdvReac Mild Gastrointestinal Verified 04/13/20 16:27 Upset Home Medications Medication Instructions Recorded Confirmed Type amlodipine 10 mg PO QAM 04/08/19 04/13/20 History atorvastatin 80 mg PO QAM 04/08/19 04/13/20 History alprazolam 1 mg tablet 1 mg PO DAILY PRN 10/14/19 04/13/20 History bupropion HCl 150 mg tablet,12 hr 150 mg PO QAM 10/14/19 04/13/20 History sustained-release blood sugar diagnostic #10 ea 12/01/19 04/13/20 History lancets #100 ea 12/01/19 04/13/20 History pregabalin 100 mg capsule 100 mg PO BID 12/01/19 04/13/20 History lisinopril 40 mg PO HS 01/04/20 04/13/20 History multivitamin 1 tab PO QAM 01/04/20 04/13/20 History amitriptyline 25 mg PO HS 01/14/20 04/13/20 History insulin glargine 100 unit/mL (3 45 unit SQ BID #2 box 02/21/20 04/13/20 Rx mL) subcutaneous pen pen needle, diabetic 31 gauge x #200 ea 02/21/20 04/13/20 Rx 3/16" carvedilol 6.25 mg tablet 12.5 mg PO BID tab 03/21/20 04/13/20 History insulin aspart U-100 100 unit/mL 25 unit SUBCUT TIDM ml 03/21/20 04/13/20 History (3 mL) subcutaneous pen nystatin 100,000 unit/gram topical 1 applic TOPICAL DAILY 14 Days #30 03/27/20 04/13/20 Rx powder g icosapent ethyl [Vascepa] 2 g PO BID 04/13/20 04/13/20 History blood-glucose meter,continuous #1 ea 04/16/20 Rx blood-glucose sensor #3 ea 04/16/20 Rx blood-glucose transmitter #1 ea 04/16/20 Rx Patient History Medical History (Updated 04/20/20 @ 11:23 by Fannie Fonseca MD) BJ (acute kidney injury) Anemia due to chronic kidney disease Chronic diarrhea reason for colonoscopy Diabetic nephropathy associated with type 2 diabetes mellitus DM neuropathy, painful DM retinopathy Habitual snoring never had a sleep study test done Hidradenitis suppurativa HTN (hypertension) Hyperlipidemia Kidney stones Morbid obesity with BMI of 45.0-49.9, adult Obesity Proteinuria Uncontrolled type 2 diabetes mellitus Surgical History History of cardiac cath 2014 ?? 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 History of eye surgery left eye multiple before eye removal History of tooth extraction History of wisdom tooth extraction Status post epidural steroid injection Family History Mother No problems noted. Father , Age 60, [place] Myocardial infarction Unknown Charcot-Ana disease Neuropathy Brother Family history of diabetes mellitus Other No family history of adverse response to anesthesia No significant family history Social History Smoking Status: Never smoker Second Hand Exposure: No; Do You Dip or Chew Tobacco: No; Tobacco Cessation Education Requested by Patient: No Hx Alcohol Use: No Hx Substance Use: No Preferred Language: Uzbek Communication Ability: Unable Merchandise Director Required: No Beliefs That Will Affect Care: None marital status: Current Living Situation: Spouse current occupational status: employed Other Information That Helps Us Care for You: No Feels Safe at Home: Yes Assistive Devices: Special Shoe Review of Systems Constitutional: as per Subjective / HPI Eyes: Denies vision problems Respiratory: No wheezing. Regular rate and rhythm Cardiovascular: Additional Comments: Denies chest pain Gastrointestinal: Denies Abdominal pain. Belly is soft and tender. 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 Focused Exam: Wound location: Right foot 3rd interspace full thickness ulcer Wound base color and depth: Wound probes to muscle and tendon, and bone Wound size (cm): 2.1 x 0.9 x 2.3cm Odor: no malodor Drainage: moderate serosanguineous exudate Undermining: minimal Borders: macerated Constitutional: well developed and well nourished Eyes: PERRL ENMT: external ear and nose normal, oropharynx normal Neck: trachea midline, no thyromegaly Respiratory: normal respiratory effort, lungs clear to auscultation Cardiovascular: Rate/Rhythm: regular rate and regular rhythm Chest (Breasts): Chest: normal inspection of chest Gastrointestinal (Abdomen): Inspection/Auscultation: abdomen normal to inspection Musculoskeletal: no cyanosis or clubbing, extremities motor strength 5/5 Head/Neck/Chest: normocephalic Skin: + ulcer (right foot) Neurologic: moves all extremities Motor/Sensory: + sensory deficit Psychiatric: A+Ox3, euthymic affect Results & Data ([facility]) Vital Signs (Past 12 Hours) Vital Signs Temp Pulse Resp BP Pulse Ox 04/20/20 19:46 36.6 C 81 20 167/69 H 95 04/20/20 15:36 36.9 C 79 20 119/75 95 04/20/20 12:07 36.5 C 86 20 111/72 98
[2020-04-21] MEDS ORDERED: CEFEPIME 2,000 MG in SYRINGE 0 ML IV SCH (01:00)
[2020-04-21] MEDS ORDERED: MoRPHine SULFATE 2 MG/ML CARP IV STA (01:03)
[2020-04-21] MEDS: SODIUM CHLORIDE 0.9% 1000ML 1,000 ML IV SCH (01:20)
[2020-04-21] MEDS: HEPARIN SOD 5,000 UNIT/0.5 ML VIAL SQ SCH ×3 (05:37→20:59)
[2020-04-21 07:00] LABS: Hematocrit (blood only) 30.1 % (42-52); Hemoglobin 9.6 g/dL (14.0-18.0); Mean Corpuscular Hgb Conc 31.9 g/dL (32-36); Mean Corpuscular Volume 84.8 fL (80-100); Mean Platelet Volume 10.7 fL (7.4-10.4); Platelet Count 446 K/uL (130-400); RDW Coefficient of Variation 13.4 % (11.5-14.5); RDW Standard Deviation 41.6 fL (36.4-46.3); Red Blood Count 3.55 M/uL (4.7-6.1); White Blood Count 9.92 K/uL (4.8-10.8)
[2020-04-21 07:20] LABS: BUN Creatinine Ratio 14.5 (10-20); Calcium 8.8 mg/dl (8.5-10.1); Creatinine Clr Calc Pharmacy 55.2 ml/min; Est GFR (African American) 33.1; Est GFR (Non-African American) 28.5; Phosphorus 4.3 mg/dl (2.5-4.9); Potassium 4.7 mmol/L (3.5-5.1)
[2020-04-21] MEDS: MULTIVITAMIN TAB PO SCH (08:21)
[2020-04-21] MEDS: amLODIPine BESYLATE 5 MG TAB PO SCH (08:21)
[2020-04-21] MEDS: carvediloL 12.5 MG TAB PO SCH ×2 (08:22→21:00)
[2020-04-21] MEDS: buPROPion SR 150 MG TABCR PO SCH (08:22)
[2020-04-21] MEDS: INSULIN GLARGINE SOLOSTAR 100 UNITS/ML 3 ML PEN SC SCH (08:23)
[2020-04-21] MEDS: IRON SUCROSE 200 MG in 0.9 % SODIUM CHLORIDE 100 ML IV SCH (08:33)
[2020-04-21] MEDS: PREGABALIN 100 MG CAP PO SCH ×2 (08:33→20:57)
--- NOTE | 2020-04-21 08:39 | Hospitalist Progress Note ---
Date of Service April 21, 2020 Assessment & Plan (1) Diabetic foot ulcer with osteomyelitis: POD# 6 S/P I and D of abscess by Dr. Nguyen on 04/15 * Previously failed outpatient treatment * MRI right foot showed abscess, possible developing osteo (although discussed with podiatry and does not feel any osteo) * Initially on Dapto/Cefepime however abx de-escalated to Ancef on 04/15 for cultures with staph species x 2 * Continue wound care and at discharge * Blood cultures NGTD FINAL Infectious disease consultation ordered for rec's at discharge --see report. ok w PO abx if thought to exclude bone, however given exam prior evening with discharge concerning for pseudomonasa and abx broadened to Cefepime (on day 3 of therapy) REPEAT MRI: * There is marked marrow edema identified within the head and neck of the second and third metatarsals. Question fracture lines in both metatarsal necks. This could be on a posttraumatic and/or an infectious basis. * Again seen is significant marrow edema within the second, third, and fourth proximal phalanges. Osteomyelitis is not excluded. * There is a wound along the plantar aspect of the foot with surrounding phlegmonous change at the site of a previously characterized collection. The fluid component has largely resolved. * Again seen is a wound between the third and fourth toes with surrounding edema. The wound extends to the dorsal surface of the foot. * There is a new developing dorsal fluid collection between the fourth and fifth toes. A small abscess is not excluded. * There is evidence of diffuse cellulitis/myositis throughout the forefoot. 04/21 POD#3 s/p Repeat I&D on 04/18 for abscess between 4th/5th toes on RIGHT foot * Dressing change and wound vac currently off * Dr. nguyen to continue TWICE DAILY dressing changes and will have follow up with patient once discharged * Wound cx with staph species * To remain inpatient through weekend * Messaged ID about repeat I&D (culture without organisms, few WBCs) without evidence of pseudomonas about continue for Cefepime (on day 4 of therapy) vs transition to agent for sole staph coverage * --> SWITCHED BACK TO ANCEF TODAY 04/21 and will need continued for 6 weeks w PICC line as avboe * Continues to be afebrile, WBC wnl * Consulted nephrology as Cr elevated to 2.96 from 2.39 -- had net negative 2L yesterday but is now positive and will aim for even balance * Got Epogen and IV Venofer * NSS @80cc/hr for an additional liter today (2) Diabetic ulcer of left foot associated with type 2 diabetes mellitus, limited to breakdown of skin: * See above, OM not excluded on repeat imaging (contrast avoided with patient with CKD IV) (3) Uncontrolled type 2 diabetes mellitus: * Hemoglobin A1c 14 in January. * A1C: 13.4 * Total daily dose of insulin 165 units * Lantus 54 units twice daily * NovoLog: * Goal BSG Range: Low 110 mg/dL, High 140 mg/dL * Correction Factor: 5 mg/dL/unit * INS:CHO Ratio: 1unit per 5 gms CHO consumed * BSGs have been acceptable * Consider addition of GLP-1 or similar for some appetite suppression as possible insulin increasing patient's hunger and still with A1c 13.4/uncontrolled * Follows with Endocrinology -- discuss starting at discharge vs follow up with Endocrine to start this therapy. He follows with Harvey Aburto and has appointment with him and PCP on Apr 24 per patient * Discussed with Dr. Aburto on 04/18 and patient has had severely poorly controlled DM2 and was on Invokana prior to seeing them recently but was too expensive. Did not was to do a SGLT2 but did not discuss GLP-1 * Will check with patients regarding medullary thyroid/etc/etc prior to starting Ozempic or similar at lowest dose and will need f/u with Endocrine (already scheduled as above) * --> Plans to start low dose Ozempic at discharge and will f/u with Dr. Aburto outpatient (4) UNIQUE (obstructive sleep apnea): * Patient reports awaiting home sleep study results. * would likely have additional benefit on BP with CPAP as likely with UNIQUE (5) HTN (hypertension): * Continue amlodipine 10 mg p.o. every morning, carvedilol 12.5 mg p.o. twice daily * Continue to hold lisinopril 40 mg p.o. at bedtime for elevated Cr * BP 147/76 * Continue to monitor (6) Hyperlipidemia: * Continue atorvastatin 80 mg p.o. every morning (7) Chronic kidney disease, stage IV (severe): * Not diagnostic of BJ but elevated from his baseline * Had been on continuous IVF due to Cr peaked at 3.4 on admission-- appears baseline closer to 2.4-2.8 range (possible worsening over past year given diabetes as above) * d/c'd IVF 04/17 * Repeat Cr stable at 2.39 but net negative 2L over last 24 hours and repeat Cr elevated to 2.79 * Started IVF evening 04/19 and increased to 150cc/hr to maintain even balance * Nephrology consulted as above * Patient had f/u appt with nephrology initially and missed appointment -- will need arranged at d/c given CKD IV and not previously established * Stated difficulty starting urine stream last night and had reported green discharge after reportedly bearing down. Hx stones reported without need for intervention * UA with proteinuria, RBC, WBC, Epi >30 * Renal US with bladder wall thickening * --> Will start flomax 0.4mg HS to help with outlet obstruction and monitor PVR/Bladder scan as needed. If continues to retain would place [facility] and have patient follow up with Urology * PTH elevated 113 -- hyperparathyroidism secondary to renal disease. * Will also add Vit D to AM labs (8) DVT prophylaxis: * PT/OT consults pending (recs for walker if d/c to home) -- they do have recommendations for rehab at discharge. We will monitor progression with off- loading shoe and continued PT/OT throughout weekend but may need to discuss rehab (he would ideally like home with home health) * Heparin SQ given decrease mobility Hypomagnesemia Mag 1.7 and replaced with repeat wnl Dispo: continued inpatient stay Will need PICC line and IV abx for 6 weeks at discharge CM following and helping to arrange wound vac at discharge Admission and Anticipated Discharge Date Admission Date: April 13, 2020 Subjective Patient evaluated this morning. Doing well outside of some additional bladder discomfort last night and ended up needing straight cath. Renal US with bladder thickening but no obstruction. Will add Flomax HS and discussed possible f/u with Urology outpatient if needed. Dressing change last night with Dr. Nguyen and wound vac currently off. No fever, chills, chest pain, shortness of breath, abdominal pain, nausea, vomiting or dysuria since that time. Dr. Nguyen to see this morning and discussed dressing changes twice daily. He is hopeful for discharge to either rehab or home with home health on Thursday. Will need PICC line in next day or two. Will switch to Ancef today. Questions/concerns addressed. Review of Systems Review of Systems: All systems reviewed & are unremarkable except as noted in HPI & below Physical Exam Physical Exam: Constitutional: well developed and + morbidly obese; no acute distress, comfortable and sleeping in bed upon arrival Eyes: + anicteric sclerae; pupils not irregular ENMT: Mouth: oral mucous membranes moist Neck: trachea midline, possible thyromegaly Respiratory: normal respiratory effort, lungs clear to auscultation, diminished breath sounds throughout, no w/c/r Cardiovascular: Rate/Rhythm: regular rhythm and tachycardic Heart Sounds: no murmur Extremities: normal capillary refill ; no calf tenderness. pulses palpable bilaterally, +pedal edema Gastrointestinal (Abdomen): normal bowel sounds, soft, nontender, no hepatosplenomegaly Musculoskeletal: no cyanosis or clubbing, extremities motor strength 5/5 Neurologic: moves all extremities and awake; not confused Psychiatric: A+Ox3 Skin: dressing to RIGHT found c/d/i minimal purulant drainage ulcer between 3rd interspace with callus on lateral aspect of left foot no erythema beyond dressing noted sensation to pressure but not light touch additional dressing to 4/5th digits c/d/i Results & Data Results & Data ([facility]) Vital Signs (Past 12 Hours) Vital Signs Temp Pulse Resp BP Pulse Ox 04/21/20 07:30 36.5 C 87 20 147/76 H 97 Laboratory Results 04/21/20 04/21/20 04/21/20 Range/Units 07:40 06:36 06:36 WBC (4.8-10.8) K/uL RBC (4.7-6.1) M/uL Hgb (14.0-18.0) g/dL Hct (42-52) % MCV (80-100) fL MCH (25-34) pg MCHC (32-36) g/dL RDW Std Deviation (36.4-46.3) fL RDW Coeff of Nicky (11.5-14.5) % Plt Count (130-400) K/uL MPV (7.4-10.4) fL Immature Gran % (Auto) % Neut % (Auto) % Lymph % (Auto) % [place] % (Auto) % Eos % (Auto) % Baso % (Auto) % Neut # (Auto) (1.4-6.5) K/uL Lymph # (Auto) (1.2-3.4) K/uL [place] # (Auto) (0.11-0.59) K/uL Eos # (Auto) (0-0.5) K/uL Baso # (Auto) (0-0.2) K/uL Immature Gran # (Auto) (0.00-0.02) K/uL ESR (0-14) mm/hr Sodium 140 (136-145) mmol/L Potassium 4.7 (3.5-5.1) mmol/L Chloride 110 H (98-107) mmol/L Carbon Dioxide 24 (21-32) mmol/L Anion Gap 6.0 (3-11) BUN 39 H (7-18) mg/dl Creatinine 2.69 H (0.6-1.4) mg/dl Est Cr Clr Drug Dosing 55.2 ml/min Est GFR ( Amer) 33.1 Est GFR (Non-Af Amer) 28.5 BUN/Creatinine Ratio 14.5 (10-20) Glucose 103 H (70-99) mg/dl POC Glucose 98 (70-99) mg/dl Calcium 8.8 (8.5-10.1) mg/dl Phosphorus 4.3 (2.5-4.9) mg/dl C-Reactive Protein (0-0.29) mg/dl Albumin 2.0 L (3.4-5.0) gm/dl PTH Intact 113.1 H (18.4-80.1) pg/ml 04/21/20 04/20/20 04/20/20 Range/Units 06:36 20:24 16:34 WBC 9.92 (4.8-10.8) K/uL RBC 3.55 L (4.7-6.1) M/uL Hgb 9.6 L (14.0-18.0) g/dL Hct 30.1 L (42-52) % MCV 84.8 (80-100) fL MCH 27.0 (25-34) pg MCHC 31.9 L (32-36) g/dL RDW Std Deviation 41.6 (36.4-46.3) fL RDW Coeff of Nicky 13.4 (11.5-14.5) % Plt Count 446 H (130-400) K/uL MPV 10.7 H (7.4-10.4) fL Immature Gran % (Auto) % Neut % (Auto) % Lymph % (Auto) % [place] % (Auto) % Eos % (Auto) % Baso % (Auto) % Neut # (Auto) (1.4-6.5) K/uL Lymph # (Auto) (1.2-3.4) K/uL [place] # (Auto) (0.11-0.59) K/uL Eos # (Auto) (0-0.5) K/uL Baso # (Auto) (0-0.2) K/uL Immature Gran # (Auto) (0.00-0.02) K/uL ESR (0-14) mm/hr Sodium (136-145) mmol/L Potassium (3.5-5.1) mmol/L Chloride (98-107) mmol/L Carbon Dioxide (21-32) mmol/L Anion Gap (3-11) BUN (7-18) mg/dl Creatinine (0.6-1.4) mg/dl Est Cr Clr Drug Dosing ml/min Est GFR ( Amer) Est GFR (Non-Af Amer) BUN/Creatinine Ratio (10-20) Glucose (70-99) mg/dl POC Glucose 145 H 102 H (70-99) mg/dl Calcium (8.5-10.1) mg/dl Phosphorus (2.5-4.9) mg/dl C-Reactive Protein (0-0.29) mg/dl Albumin (3.4-5.0) gm/dl PTH Intact (18.4-80.1) pg/ml 04/20/20 04/20/20 04/20/20 Range/Units 11:46 05:27 05:27 WBC (4.8-10.8) K/uL RBC (4.7-6.1) M/uL Hgb (14.0-18.0) g/dL Hct (42-52) % MCV (80-100) fL MCH (25-34) pg MCHC (32-36) g/dL RDW Std Deviation (36.4-46.3) fL RDW Coeff of Nicky (11.5-14.5) % Plt Count (130-400) K/uL MPV (7.4-10.4) fL Immature Gran % (Auto) % Neut % (Auto) % Lymph % (Auto) % [place] % (Auto) % Eos % (Auto) % Baso % (Auto) % Neut # (Auto) (1.4-6.5) K/uL Lymph # (Auto) (1.2-3.4) K/uL [place] # (Auto) (0.11-0.59) K/uL Eos # (Auto) (0-0.5) K/uL Baso # (Auto) (0-0.2) K/uL Immature Gran # (Auto) (0.00-0.02) K/uL ESR 68 H (0-14) mm/hr Sodium (136-145) mmol/L Potassium (3.5-5.1) mmol/L Chloride (98-107) mmol/L Carbon Dioxide (21-32) mmol/L Anion Gap (3-11) BUN (7-18) mg/dl Creatinine (0.6-1.4) mg/dl Est Cr Clr Drug Dosing ml/min Est GFR ( Amer) Est GFR (Non-Af Amer) BUN/Creatinine Ratio (10-20) Glucose (70-99) mg/dl POC Glucose 174 H (70-99) mg/dl Calcium (8.5-10.1) mg/dl Phosphorus (2.5-4.9) mg/dl C-Reactive Protein 2.18 H (0-0.29) mg/dl Albumin (3.4-5.0) gm/dl PTH Intact (18.4-80.1) pg/ml 04/20/20 Range/Units 05:27 WBC 13.18 H (4.8-10.8) K/uL RBC 3.93 L (4.7-6.1) M/uL Hgb 10.5 L (14.0-18.0) g/dL Hct 33.3 L (42-52) % MCV 84.7 (80-100) fL MCH 26.7 (25-34) pg MCHC 31.5 L (32-36) g/dL RDW Std Deviation 41.2 (36.4-46.3) fL RDW Coeff of Nicky 13.4 (11.5-14.5) % Plt Count 454 H (130-400) K/uL MPV 10.7 H (7.4-10.4) fL Immature Gran % (Auto) 0.8 % Neut % (Auto) 59.5 % Lymph % (Auto) 27.2 % [place] % (Auto) 9.6 % Eos % (Auto) 2.6 % Baso % (Auto) 0.3 % Neut # (Auto) 7.62 H (1.4-6.5) K/uL Lymph # (Auto) 3.49 H (1.2-3.4) K/uL [place] # (Auto) 1.23 H (0.11-0.59) K/uL Eos # (Auto) 0.33 (0-0.5) K/uL Baso # (Auto) 0.04 (0-0.2) K/uL Immature Gran # (Auto) 0.10 H (0.00-0.02) K/uL ESR (0-14) mm/hr Sodium (136-145) mmol/L Potassium (3.5-5.1) mmol/L Chloride (98-107) mmol/L Carbon Dioxide (21-32) mmol/L Anion Gap (3-11) BUN (7-18) mg/dl Creatinine (0.6-1.4) mg/dl Est Cr Clr Drug Dosing ml/min Est GFR ( Amer) Est GFR (Non-Af Amer) BUN/Creatinine Ratio (10-20) Glucose (70-99) mg/dl POC Glucose (70-99) mg/dl Calcium (8.5-10.1) mg/dl Phosphorus (2.5-4.9) mg/dl C-Reactive Protein (0-0.29) mg/dl Albumin (3.4-5.0) gm/dl PTH Intact (18.4-80.1) pg/ml PG Care Time/CCT Total # of Minutes Spent Total Time Spent with Patient: Total time spent is greater than 50% in coordination of care (as documented) at patient's floor/unit and/or counseling patient: Coding Level of Care Code 43358 Subseq Hosp Care Lvl 3 Diagnoses Diabetic foot ulcer with osteomyelitis E11.621; E11.69; L97.509; M86.9 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
[2020-04-21] MEDS ORDERED: SODIUM CHLORIDE 0.9% 1000ML 1,000 ML IV SCH (08:45)
[2020-04-21] MEDS: INSULIN ASPART 100 UNITS/ML 3 ML PEN SC SCH ×4 (09:28→20:57)
--- NOTE | 2020-04-21 11:06 | Podiatry Consultation ---
Date of Consultation April 21, 2020 Assessment & Plan (1) Diabetic ulcer of left foot associated with type 2 diabetes mellitus, limited to breakdown of skin: 1.) Patient seen, evaluated, and treated 2.) WBC declined today. Purulent drainage was observed on packing showing clinically active infection. 3.) 4 phase bone scan for evaluation of possible osteomyelitis available Thursday morning 4.) ID made aware that IV abx should be appropriate for treatment of osteomyelitis 5.) Patient may benefit from OR procedure where abscesses can be fully explored and evaluated for tracking along fascial planes. Bone biopsy can be obtained at this time. 6.) Will continue to monitor labs and 4 phase bone scan will aid in decision making process. Thank you for allowing me to participate in the care of this Patient. History of Present Illness Attending Physician: Mustapha Coley MD Allergies Allergy/AdvReac Type Severity Reaction Status Date / Time amoxicillin AdvReac Mild Gastrointestinal Verified 04/13/20 16:27 Upset Home Medications Medication Instructions Recorded Confirmed Type amlodipine 10 mg PO QAM 04/08/19 04/13/20 History atorvastatin 80 mg PO QAM 04/08/19 04/13/20 History alprazolam 1 mg tablet 1 mg PO DAILY PRN 10/14/19 04/13/20 History bupropion HCl 150 mg tablet,12 hr 150 mg PO QAM 10/14/19 04/13/20 History sustained-release blood sugar diagnostic #10 ea 12/01/19 04/13/20 History lancets #100 ea 12/01/19 04/13/20 History pregabalin 100 mg capsule 100 mg PO BID 12/01/19 04/13/20 History lisinopril 40 mg PO HS 01/04/20 04/13/20 History multivitamin 1 tab PO QAM 01/04/20 04/13/20 History amitriptyline 25 mg PO HS 01/14/20 04/13/20 History insulin glargine 100 unit/mL (3 45 unit SQ BID #2 box 02/21/20 04/13/20 Rx mL) subcutaneous pen pen needle, diabetic 31 gauge x #200 ea 02/21/20 04/13/20 Rx 3/16" carvedilol 6.25 mg tablet 12.5 mg PO BID tab 03/21/20 04/13/20 History insulin aspart U-100 100 unit/mL 25 unit SUBCUT TIDM ml 03/21/20 04/13/20 History (3 mL) subcutaneous pen nystatin 100,000 unit/gram topical 1 applic TOPICAL DAILY 14 Days #30 03/27/20 04/13/20 Rx powder g icosapent ethyl [Vascepa] 2 g PO BID 04/13/20 04/13/20 History blood-glucose meter,continuous #1 ea 04/16/20 Rx blood-glucose sensor #3 ea 04/16/20 Rx blood-glucose transmitter #1 ea 04/16/20 Rx Patient History Medical History (Updated 04/20/20 @ 11:23 by Fannie Fonseca MD) BJ (acute kidney injury) Anemia due to chronic kidney disease Chronic diarrhea reason for colonoscopy Diabetic nephropathy associated with type 2 diabetes mellitus DM neuropathy, painful DM retinopathy Habitual snoring never had a sleep study test done Hidradenitis suppurativa HTN (hypertension) Hyperlipidemia Kidney stones Morbid obesity with BMI of 45.0-49.9, adult Obesity Proteinuria Uncontrolled type 2 diabetes mellitus Surgical History History of cardiac cath 2014 ?? 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 History of eye surgery left eye multiple before eye removal History of tooth extraction History of wisdom tooth extraction Status post epidural steroid injection Family History Mother No problems noted. Father , Age 60, [place] Myocardial infarction Unknown Charcot-Ana disease Neuropathy Brother Family history of diabetes mellitus Other No family history of adverse response to anesthesia No significant family history Social History Smoking Status: Never smoker Second Hand Exposure: No; Do You Dip or Chew Tobacco: No; Tobacco Cessation Education Requested by Patient: No Hx Alcohol Use: No Hx Substance Use: No Preferred Language: Nepali Communication Ability: Unable Electricity Trader Required: No Beliefs That Will Affect Care: None marital status: Current Living Situation: Spouse current occupational status: employed Other Information That Helps Us Care for You: No Feels Safe at Home: Yes Assistive Devices: Special Shoe Review of Systems Constitutional: as per Subjective / HPI Eyes: Denies vision problems Respiratory: No wheezing. Regular rate and rhythm Cardiovascular: Additional Comments: Denies chest pain Gastrointestinal: Denies Abdominal pain. Belly is soft and tender. 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 Focused Exam: Wound location: Right foot 3rd interspace full thickness ulcer Wound base color and depth: Wound probes to muscle and tendon, and bone Wound size (cm): 2.1 x 0.9 x 2.3cm Odor: no malodor Drainage: moderate serosanguineous exudate Undermining: minimal Borders: macerated Constitutional: well developed and well nourished Eyes: PERRL ENMT: external ear and nose normal, oropharynx normal Neck: trachea midline, no thyromegaly Respiratory: normal respiratory effort, lungs clear to auscultation Cardiovascular: Rate/Rhythm: regular rate and regular rhythm Chest (Breasts): Chest: normal inspection of chest Gastrointestinal (Abdomen): Inspection/Auscultation: abdomen normal to inspection Musculoskeletal: no cyanosis or clubbing, extremities motor strength 5/5 Head/Neck/Chest: normocephalic Skin: + ulcer (right foot) Neurologic: moves all extremities Motor/Sensory: + sensory deficit Psychiatric: A+Ox3, euthymic affect Results & Data ([facility]) Vital Signs (Past 12 Hours) Vital Signs Temp Pulse Resp BP Pulse Ox 04/21/20 07:30 36.5 C 87 20 147/76 H 97
--- NOTE | 2020-04-21 12:25 | Nephrology Progress Note ---
Date of Service April 21, 2020 Assessment & Plan (1) BJ (acute kidney injury): Creatinine approaching baseline. Volume status acceptable. Electrolytes appropriate. UA notable for microscopic hematuria. Imaging demonstrating bladder wall thickening No additional evaluation at this time. Document I/O's. Maintain even fluid balance. Repeat metabolic profile in the AM. Medications appropriately dosed for kidney function. (2) Chronic kidney disease, stage IV (severe): CKD IIIB/IV. Secondary to diabetic nephropathy with high-grade proteinuria. (3) Proteinuria: Lisinopril held due to BJ. 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 Lisinopril held. (6) Diabetic nephropathy associated with type 2 diabetes mellitus: (7) Uncontrolled type 2 diabetes mellitus: (8) Anemia due to chronic kidney disease: Epogen 41187 units x 1 dose 04/20. Venofer 200 mg IV /d Admission and Anticipated Discharge Date Admission Date: April 13, 2020 Subjective No acute events overnight. Straight cath performed for urinary retention. No LUTS. No void this AM. No fevers or chills. Overall, Lex feels well. Denies pain. Ambulating without difficulty. Review of Systems Review of Systems: All systems reviewed & are unremarkable except as noted in HPI & below Physical Exam Constitutional: WD/WN, vitals as above + obese; no acute distress Eyes: PERRL, conjunctivae normal, anicteric sclerae ENMT: external ear and nose normal, oropharynx normal Ears: no hearing impairment Neck: trachea midline Respiratory: normal respiratory effort, lungs clear to auscultation no cou gh Auscultation: no crackles, no rales and no wheezes Cardiovascular: RRR, no murmur, no edema Gastrointestinal (Abdomen): normal bowel sounds, soft, nontender, no hepatosplenomegaly Percussion/Palpation: abdomen nontender, no guarding and abdomen not rigid Musculoskeletal: RT foot nonhealing ulcer in dressing. Skin: no rashes, warm and dry Neurologic: moves all extremities and awake Psychiatric: A+Ox3, euthymic affect Results & Data ([facility]) Vital Signs (Past 12 Hours) Vital Signs Temp Pulse Resp BP Pulse Ox 04/21/20 12:00 36.3 C L 80 20 122/77 96 04/21/20 07:30 36.5 C 87 20 147/76 H 97 Laboratory Results Laboratory Results - last 24 hr 04/20/20 04/20/20 04/21/20 16:34 20:24 06:36 WBC 9.92 RBC 3.55 L Hgb 9.6 L Hct 30.1 L MCV 84.8 MCH 27.0 MCHC 31.9 L RDW Std Deviation 41.6 RDW Coeff of Nicky 13.4 Plt Count 446 H MPV 10.7 H Sodium Potassium Chloride Carbon Dioxide Anion Gap BUN Creatinine Est Cr Clr Drug Dosing Est GFR ( Amer) Est GFR (Non-Af Amer) BUN/Creatinine Ratio Glucose POC Glucose 102 H 145 H Calcium Phosphorus Albumin 25-OH Vitamin D Total PTH Intact 04/21/20 04/21/20 04/21/20 06:36 06:36 07:40 WBC RBC Hgb Hct MCV MCH MCHC RDW Std Deviation RDW Coeff of Nicky Plt Count MPV Sodium 140 Potassium 4.7 Chloride 110 H Carbon Dioxide 24 Anion Gap 6.0 BUN 39 H Creatinine 2.69 H Est Cr Clr Drug Dosing 55.2 Est GFR ( Amer) 33.1 Est GFR (Non-Af Amer) 28.5 BUN/Creatinine Ratio 14.5 Glucose 103 H POC Glucose 98 Calcium 8.8 Phosphorus 4.3 Albumin 2.0 L 25-OH Vitamin D Total PTH Intact 113.1 H 04/21/20 04/21/20 08:49 11:35 WBC RBC Hgb Hct MCV MCH MCHC RDW Std Deviation RDW Coeff of Nicky Plt Count MPV Sodium Potassium Chloride Carbon Dioxide Anion Gap BUN Creatinine Est Cr Clr Drug Dosing Est GFR ( Amer) Est GFR (Non-Af Amer) BUN/Creatinine Ratio Glucose POC Glucose 138 H Calcium Phosphorus Albumin 25-OH Vitamin D Total 9.0 L PTH Intact PG Care Time/CCT Total # of Minutes Spent Total Time Spent with Patient: Total time spent is greater than 50% in coordination of care (as documented) at patient's floor/unit and/or counseling patient: Coding Level of Care Code 06532 Subseq Hosp Care Lvl 3 Diagnoses BJ (acute kidney injury) N17.9 Chronic kidney disease, stage IV (severe) N18.4 Proteinuria R80.9 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
[2020-04-21] MEDS: CLOTRIMAZOLE 1% CR 15 GM TUBE EXT SCH ×2 (13:07→21:00)
[2020-04-21] MEDS: ceFAZolin 2000MG 2,000 MG/15 ML SYR IV SCH ×2 (13:09→20:57)
[2020-04-21 20:51] LABS: Creatinine Urine Random 65.9 mg/dl
[2020-04-21 20:52] LABS: Protein Creatinine Ratio Urine 10.6 (0-0.2); Total Protein Urine Random 696.3 mg/dl (0-11.9)
[2020-04-21] MEDS: TAMSULOSIN HCL 0.4 MG CAP PO SCH (20:57)
[2020-04-21] MEDS: AMITRIPTYLINE HCL 25 MG TAB PO SCH (20:57)
[2020-04-22] MEDS: SODIUM CHLORIDE 0.9% 1000ML 1,000 ML IV SCH ×2 (00:30→08:53)
[2020-04-22] MEDS: ceFAZolin 2000MG 2,000 MG/15 ML SYR IV SCH ×3 (03:39→21:14)
[2020-04-22] MEDS: HEPARIN SOD 5,000 UNIT/0.5 ML VIAL SQ SCH ×3 (05:34→21:14)
[2020-04-22 06:12] LABS: Hematocrit (blood only) 30.2 % (42-52); Hemoglobin 9.4 g/dL (14.0-18.0); Mean Corpuscular Hemoglobin 26.8 pg (25-34); Mean Corpuscular Hgb Conc 31.1 g/dL (32-36); Mean Platelet Volume 10.7 fL (7.4-10.4); Platelet Count 438 K/uL (130-400); RDW Coefficient of Variation 13.7 % (11.5-14.5); RDW Standard Deviation 43.2 fL (36.4-46.3); Red Blood Count 3.51 M/uL (4.7-6.1); White Blood Count 10.53 K/uL (4.8-10.8)
[2020-04-22 06:44] LABS: Calcium 8.7 mg/dl (8.5-10.1); Creatinine Clr Calc Pharmacy 57.5 ml/min; Est GFR (African American) 34.8; Phosphorus 3.8 mg/dl (2.5-4.9); Potassium 4.4 mmol/L (3.5-5.1)
[2020-04-22] MEDS: PREGABALIN 100 MG CAP PO SCH ×2 (08:51→21:22)
[2020-04-22] MEDS: IRON SUCROSE 200 MG in 0.9 % SODIUM CHLORIDE 100 ML IV SCH (08:51)
[2020-04-22] MEDS: MULTIVITAMIN TAB PO SCH (08:52)
[2020-04-22] MEDS: carvediloL 12.5 MG TAB PO SCH ×2 (08:52→21:15)
[2020-04-22] MEDS: buPROPion SR 150 MG TABCR PO SCH (08:53)
[2020-04-22] MEDS: amLODIPine BESYLATE 5 MG TAB PO SCH (08:53)
[2020-04-22] MEDS: INSULIN GLARGINE SOLOSTAR 100 UNITS/ML 3 ML PEN SC SCH (08:55)
[2020-04-22] MEDS: CLOTRIMAZOLE 1% CR 15 GM TUBE EXT SCH ×2 (08:55→21:16)
[2020-04-22] MEDS: INSULIN ASPART 100 UNITS/ML 3 ML PEN SC SCH ×4 (08:57→22:15)
--- NOTE | 2020-04-22 10:23 | Podiatry Consultation ---
Date of Consultation April 22, 2020 Assessment & Plan (1) Diabetic ulcer of left foot associated with type 2 diabetes mellitus, limited to breakdown of skin: 1.) Patient seen, evaluated, and treated. S/P BEDSIDE I&D 04/15/20 and 04/18/20. 2.) WBC 10.53 today. Again there is some purulent drainage observed on packing showing active infection process. 3.) 4 phase bone scan scheduled for Thursday morning rule out osteomyelitis. 4.) ID made aware that IV abx should be appropriate for treatment of osteomyelitis. Patient does appear to be failing IV abx therapy and would consider Vancomycin. 5.) Patient may benefit from OR procedure where abscesses can be fully explored and evaluated for tracking along fascial planes. Bone biopsy can be obtained at this time. 6.) Will continue to monitor labs and 4 phase bone scan which will aid in decision making process. Thank you for allowing me to participate in the care of this Patient. History of Present Illness Attending Physician: Mustapha Coley MD History of Present Illness Patient seen at bedside in no acute distress. Patient has no complaints. He is status post bedside I&D on 04/15/20 and 04/18/20. Allergies Allergy/AdvReac Type Severity Reaction Status Date / Time amoxicillin AdvReac Mild Gastrointestinal Verified 04/13/20 16:27 Upset Home Medications Medication Instructions Recorded Confirmed Type amlodipine 10 mg PO QAM 04/08/19 04/13/20 History atorvastatin 80 mg PO QAM 04/08/19 04/13/20 History alprazolam 1 mg tablet 1 mg PO DAILY PRN 10/14/19 04/13/20 History bupropion HCl 150 mg tablet,12 hr 150 mg PO QAM 10/14/19 04/13/20 History sustained-release blood sugar diagnostic #10 ea 12/01/19 04/13/20 History lancets #100 ea 12/01/19 04/13/20 History pregabalin 100 mg capsule 100 mg PO BID 12/01/19 04/13/20 History lisinopril 40 mg PO HS 01/04/20 04/13/20 History multivitamin 1 tab PO QAM 01/04/20 04/13/20 History amitriptyline 25 mg PO HS 01/14/20 04/13/20 History insulin glargine 100 unit/mL (3 45 unit SQ BID #2 box 12/15/20 02/05/21 Rx mL) subcutaneous pen pen needle, diabetic 31 gauge x #200 ea 02/21/20 04/13/20 Rx 3/16" carvedilol 6.25 mg tablet 12.5 mg PO BID tab 03/21/20 04/13/20 History insulin aspart U-100 100 unit/mL 25 unit SUBCUT TIDM ml 03/21/20 04/13/20 History (3 mL) subcutaneous pen nystatin 100,000 unit/gram topical 1 applic TOPICAL DAILY 14 Days #30 03/27/20 04/13/20 Rx powder g icosapent ethyl [Vascepa] 2 g PO BID 04/13/20 04/13/20 History blood-glucose meter,continuous #1 ea 04/16/20 Rx blood-glucose sensor #3 ea 04/16/20 Rx blood-glucose transmitter #1 ea 04/16/20 Rx Patient History Medical History (Updated 04/20/20 @ 11:23 by Fannie Fonseca MD) BJ (acute kidney injury) Anemia due to chronic kidney disease Chronic diarrhea reason for colonoscopy Diabetic nephropathy associated with type 2 diabetes mellitus DM neuropathy, painful DM retinopathy Habitual snoring never had a sleep study test done Hidradenitis suppurativa HTN (hypertension) Hyperlipidemia Kidney stones Morbid obesity with BMI of 45.0-49.9, adult Obesity Proteinuria Uncontrolled type 2 diabetes mellitus Surgical History History of cardiac cath 2014 ?? 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 History of eye surgery left eye multiple before eye removal History of tooth extraction History of wisdom tooth extraction Status post epidural steroid injection Family History Mother No problems noted. Father , Age 60, [place] Myocardial infarction Unknown Charcot-Ana disease Neuropathy Brother Family history of diabetes mellitus Other No family history of adverse response to anesthesia No significant family history Social History Smoking Status: Never smoker Second Hand Exposure: No; Do You Dip or Chew Tobacco: No; Tobacco Cessation Education Requested by Patient: No Hx Alcohol Use: No Hx Substance Use: No Preferred Language: [place] Communication Ability: Unable Pastry Mixer Required: No Beliefs That Will Affect Care: None marital status: Current Living Situation: Spouse current occupational status: employed Other Information That Helps Us Care for You: No Feels Safe at Home: Yes Assistive Devices: Special Shoe Review of Systems Constitutional: as per Subjective / HPI Eyes: Denies vision problems Respiratory: No wheezing. Regular rate and rhythm Cardiovascular: Additional Comments: Denies chest pain Gastrointestinal: Denies Abdominal pain. Belly is soft and tender. 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: D[employer] wnl to all digits of feet bilateral Focused Exam: Wound location: Plantar midfoot Incision induced wound location for drainage Wound base color and depth: Wound probes to muscle and tendon and 2nd and 3rd metatarsal bone Wound size (cm): 1.0 x 0.1 x 1.5 cm Odor: no malodor Drainage: mild serosanguineous exudate Undermining: minimal Borders: healthy Wound location: Right foot 3rd interspace Wound base color and depth: Wound probes to muscle and tendon, and probes to 3rd and fourth metatarsal 3rd and fourth proximal phalanx bone Wound size (cm): 2.1 x 0.9 x 2.3cm Odor: no malodor Drainage: moderate serosanguineous exudate Undermining: minimal Borders: healthy Wound location: Right foot 4th interspace full thickness ulcer Wound base color and depth: Wound probes to muscle and tendon, and fourth metatarsal, fourth phalanx bone Wound size (cm): 0.5 x 0.5 x 1.5cm Odor: no malodor Drainage: moderate serosanguineous exudate Undermining: minimal Borders: macerated Constitutional: well developed and well nourished Eyes: PERRL ENMT: external ear and nose normal, oropharynx normal Neck: trachea midline, no thyromegaly Respiratory: normal respiratory effort, lungs clear to auscultation Cardiovascular: Rate/Rhythm: regular rate and regular rhythm Chest (Breasts): Chest: normal inspection of chest Gastrointestinal (Abdomen): Inspection/Auscultation: abdomen normal to inspection Musculoskeletal: no cyanosis or clubbing, extremities motor strength 5/5 Head/Neck/Chest: normocephalic Skin: + ulcer (right foot) Neurologic: moves all extremities Motor/Sensory: + sensory deficit Psychiatric: A+Ox3, euthymic affect Results & Data ([facility]) Vital Signs (Past 12 Hours) Vital Signs Temp Pulse Resp BP Pulse Ox 04/22/20 07:38 36.4 C L 88 20 118/79 98 04/21/20 23:00 37.1 C 92 H 20 138/88 100 IMPRESSION: 1. Motion compromised examination. 2. There is marked marrow edema identified within the head and neck of the second and third metatarsals. Question fracture lines in both metatarsal necks. This could be on a posttraumatic and/or an infectious basis. 3. Again seen is significant marrow edema within the second, third, and fourth proximal phalanges. Osteomyelitis is not excluded. 4. There is a wound along the plantar aspect of the foot with surrounding phlegmonous change at the site of a previously characterized collection. The fluid component has largely resolved. 4. Again seen is a wound between the third and fourth toes with surrounding edema. The wound extends to the dorsal surface of the foot. 5. There is a new developing dorsal fluid collection between the fourth and fifth toes. A small abscess is not excluded. 6. There is evidence of diffuse cellulitis/myositis throughout the forefoot.
--- NOTE | 2020-04-22 11:54 | Nephrology Progress Note ---
Date of Service April 22, 2020 Assessment & Plan (1) BJ (acute kidney injury): Creatinine stable. Volume status acceptable. Electrolytes appropriate. UA notable for microscopic hematuria. Imaging demonstrating bladder wall thickening. Outpatient urology follow up would be advised. No additional evaluation at this time. Document I/O's. Maintain even fluid balance. IVF stopped. Repeat metabolic profile tomorrow AM. Medications appropriately dosed for kidney function. (2) Chronic kidney disease, stage IV (severe): CKD IIIB/IV. Secondary to diabetic nephropathy with high-grade proteinuria. (3) Proteinuria: Lisinopril held due to BJ. 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 Lisinopril held. (6) Diabetic nephropathy associated with type 2 diabetes mellitus: (7) Uncontrolled type 2 diabetes mellitus: (8) Anemia due to chronic kidney disease: Epogen 36809 units x 1 dose 04/20. Venofer 200 mg IV /d Admission and Anticipated Discharge Date Admission Date: April 13, 2020 Subjective No acute events overnight. Lex feels well this AM. Denies pain. No fevers or chills. Denies any other issues with LUTS or urinary retention. Voiding without difficulty. Appetite is good. Review of Systems Review of Systems: All systems reviewed & are unremarkable except as noted in HPI & below Physical Exam Constitutional: WD/WN, vitals as above + obese; no acute distress Eyes: PERRL, conjunctivae normal, anicteric sclerae ENMT: external ear and nose normal, oropharynx normal Ears: no hearing impairment Neck: trachea midline Respiratory: normal respiratory effort, lungs clear to auscultation no cough Auscultation: no crackles, no rales and no wheezes Cardiovascular: RRR, no murmur, no edema Gastrointestinal (Abdomen): normal bowel sounds, soft, nontender, no hepatosplenomegaly Percussion/Palpation: abdomen nontender, no guarding and abdomen not rigid Musculoskeletal: RT foot nonhealing ulcer in dressing. Skin: no rashes, warm and dry Neurologic: moves all extremities and awake Psychiatric: A+Ox3, euthymic affect Results & Data ([facility]) Vital Signs (Past 12 Hours) Vital Signs Temp Pulse Resp BP Pulse Ox 04/22/20 07:38 36.4 C L 88 20 118/79 98 Laboratory Results Laboratory Results - last 24 hr 04/21/20 04/21/20 04/21/20 16:31 20:13 Unknown WBC RBC Hgb Hct MCV MCH MCHC RDW Std Deviation RDW Coeff of Nicky Plt Count MPV Sodium Potassium Chloride Carbon Dioxide Anion Gap BUN Creatinine Est Cr Clr Drug Dosing Est GFR ( Amer) Est GFR (Non-Af Amer) BUN/Creatinine Ratio Glucose POC Glucose 90 117 H Calcium Phosphorus Albumin Ur Random Creatinine 65.9 U Random Total Protein 696.3 H Protein/Creatinin Ratio 10.6 H 04/22/20 04/22/20 04/22/20 05:37 05:37 07:25 WBC 10.53 RBC 3.51 L Hgb 9.4 L Hct 30.2 L MCV 86.0 MCH 26.8 MCHC 31.1 L RDW Std Deviation 43.2 RDW Coeff of Nicky 13.7 Plt Count 438 H MPV 10.7 H Sodium 141 Potassium 4.4 Chloride 110 H Carbon Dioxide 23 Anion Gap 7.0 BUN 36 H Creatinine 2.58 H Est Cr Clr Drug Dosing 57.5 Est GFR ( Amer) 34.8 Est GFR (Non-Af Amer) 30.0 BUN/Creatinine Ratio 14.0 Glucose 101 H POC Glucose 104 H Calcium 8.7 Phosphorus 3.8 Albumin 2.0 L Ur Random Creatinine U Random Total Protein Protein/Creatinin Ratio 04/22/20 11:46 WBC RBC Hgb Hct MCV MCH MCHC RDW Std Deviation RDW Coeff of Nicky Plt Count MPV Sodium Potassium Chloride Carbon Dioxide Anion Gap BUN Creatinine Est Cr Clr Drug Dosing Est GFR ( Amer) Est GFR (Non-Af Amer) BUN/Creatinine Ratio Glucose POC Glucose 146 H Calcium Phosphorus Albumin Ur Random Creatinine U Random Total Protein Protein/Creatinin Ratio PG Care Time/CCT Total # of Minutes Spent Total Time Spent with Patient: Total time spent is greater than 50% in coordination of care (as documented) at patient's floor/unit and/or counseling patient: Coding Level of Care Code 55753 Subseq Hosp Care Lvl 3 Diagnoses BJ (acute kidney injury) N17.9 Chronic kidney disease, stage IV (severe) N18.4 Proteinuria R80.9 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
--- NOTE | 2020-04-22 15:06 | Hospitalist Progress Note ---
Date of Service April 22, 2020 Assessment & Plan (1) Diabetic foot ulcer with osteomyelitis: POD# 6 S/P I and D of abscess by Dr. Puri on 04/15. - Initially on dapto/cefepime however abx de-escalated to Ancef on 04/15 for cultures with staph species x 2 - Plan for bone scan on 04/23 for concern for further bone infection. - Continue cefazolin x 6 weeks (which would likely be restarted if he needs further surgery) (2) Diabetic ulcer of left foot associated with type 2 diabetes mellitus, limited to breakdown of skin: * See above, OM not excluded on repeat imaging (contrast avoided with patient with CKD IV) (3) Uncontrolled type 2 diabetes mellitus: * Hemoglobin A1c 14 in January. * A1C: 13.4 * Total daily dose of insulin 165 units * Lantus 54 units twice daily * NovoLog: * Goal BSG Range: Low 110 mg/dL, High 140 mg/dL * Correction Factor: 5 mg/dL/unit * INS:CHO Ratio: 1unit per 5 gms CHO consumed * BSGs have been acceptable * Consider addition of GLP-1 or similar for some appetite suppression as possible insulin increasing patient's hunger and still with A1c 13.4/uncontrolled * Follows with Endocrinology -- discuss starting at discharge vs follow up with Endocrine to start this therapy. He follows with Harvey Aburto and has appointment with him and PCP on Apr 24 per patient * Discussed with Dr. Aburto on 04/18 and patient has had severely poorly controlled DM2 and was on Invokana prior to seeing them recently but was too expensive. Did not was to do a SGLT2 but did not discuss GLP-1 * Will check with patients regarding medullary thyroid/etc/etc prior to starting Ozempic or similar at lowest dose and will need f/u with Endocrine (already scheduled as above) * --> Plans to start low dose Ozempic at discharge and will f/u with Dr. Aburto outpatient. (4) UNIQUE (obstructive sleep apnea): * Patient reports awaiting home sleep study results. * would likely have additional benefit on BP with CPAP as likely with UNIQUE (5) HTN (hypertension): * Continue amlodipine 10 mg p.o. every morning, carvedilol 12.5 mg p.o. twice daily * Continue to hold lisinopril 40 mg p.o. at bedtime for elevated Cr * BP 137/80 * Continue to monitor (6) Hyperlipidemia: * Continue atorvastatin 80 mg p.o. every morning (7) Chronic kidney disease, stage IV (severe): * Not diagnostic of BJ but elevated from his baseline * Had been on continuous IVF due to Cr peaked at 3.4 on admission-- appears baseline closer to 2.4-2.8 range (possible worsening over past year given diabetes as above) * Nephrology consulted as above * Patient had f/u appt with nephrology initially and missed appointment -- will need arranged at d/c given CKD IV and not previously established - Renal US with bladder wall thickening - Started Flomax 0.4mg HS on 04/21 to help with outlet obstruction and monitor PVR/Bladder scan as needed. If continues to retain would place [facility] and have patient follow up with Urology. (8) DVT prophylaxis: * PT/OT consults pending (recs for walker if d/c to home) -- they do have recommendations for rehab at discharge. We will monitor progression with off- loading shoe and continued PT/OT throughout weekend but may need to discuss rehab (he would ideally like home with home health) * Heparin SQ given decrease mobility Admission and Anticipated Discharge Date Admission Date: April 13, 2020 Subjective Feeling pretty well today. Is ok with further testing tomorrow since podiatry has concern about continued infection. Reports no fevers/chills, chest pain, shortness of breath, abdominal pain, nausea, or vomiting. Physical Exam Constitutional: WD/WN, vitals as above Eyes: EOM intact bilaterally; no conjunctival abnormality ENMT: external ear and nose normal, oropharynx normal Neck: trachea midline, no thyromegaly normal visual inspection Respiratory: normal respiratory effort, lungs clear to auscultation no respiratory distress Cardiovascular: RRR, no murmur, no edema Gastrointestinal (Abdomen): Inspection/Auscultation: abdomen normal to inspection; abdomen not distended Musculoskeletal: no cyanosis or clubbing, extremities motor strength 5/5 Extremities: + extremities abnormal to inspection (Right foot with bandanging) Skin: no rashes, warm and dry Neurologic: moves all extremities and awake Psychiatric: Orientation: alert, oriented to person and cooperative Results & Data Results & Data ([facility]) Vital Signs (Past 12 Hours) Vital Signs Temp Pulse Resp BP Pulse Ox 02/14/21 14:35 36.7 C 62 20 136/79 93 04/22/20 11:57 36.4 C L 80 20 130/82 100 04/22/20 07:38 36.4 C L 88 20 118/79 98 PG Care Time/CCT Total # of Minutes Spent Total Time Spent with Patient: Total time spent is greater than 50% in coordination of care (as documented) at patient's floor/unit and/or counseling patient: Coding Level of Care Code 21931 Subseq Hosp Care Lvl 2 Diagnoses Diabetic foot ulcer with osteomyelitis E11.621; E11.69; L97.509; M86.9 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
[2020-04-22] MEDS: TAMSULOSIN HCL 0.4 MG CAP PO SCH (21:14)
[2020-04-22] MEDS: AMITRIPTYLINE HCL 25 MG TAB PO SCH (21:15)
[2020-04-23] MEDS: ceFAZolin 2000MG 2,000 MG/15 ML SYR IV SCH ×3 (05:02→20:08)
[2020-04-23] MEDS: HEPARIN SOD 5,000 UNIT/0.5 ML VIAL SQ SCH ×3 (05:05→21:10)
[2020-04-23 06:23] LABS: Hemoglobin 9.5 g/dL (14.0-18.0); Mean Corpuscular Hgb Conc 31.7 g/dL (32-36); Mean Corpuscular Volume 85.2 fL (80-100); Mean Platelet Volume 10.5 fL (7.4-10.4); Platelet Count 402 K/uL (130-400); RDW Coefficient of Variation 13.5 % (11.5-14.5); RDW Standard Deviation 40.8 fL (36.4-46.3); Red Blood Count 3.52 M/uL (4.7-6.1); White Blood Count 10.17 K/uL (4.8-10.8)
[2020-04-23 06:50] LABS: BUN Creatinine Ratio 12.4 (10-20); Calcium 9.2 mg/dl (8.5-10.1); Creatinine Clr Calc Pharmacy 61.6 ml/min; Est GFR (African American) 37.8; Est GFR (Non-African American) 32.6; Magnesium 1.8 mg/dl (1.8-2.4); Potassium 4.2 mmol/L (3.5-5.1)
--- NOTE | 2020-04-23 08:09 | Podiatry Consultation ---
Date of Consultation April 23, 2020 Assessment & Plan (1) Diabetic ulcer of left foot associated with type 2 diabetes mellitus, limited to breakdown of skin: 1.) Patient seen, evaluated, and treated. S/P BEDSIDE I&D 04/15/20 and 04/18/20. 2.) WBC 10.17 today. Again there is some very minimal put present purulent drainage observed on packing showing active infection process. 3.) 4 phase bone scan scheduled for today to rule out osteomyelitis. 4.) ID made aware that IV abx should be appropriate for treatment of osteomyelitis. Patient does appear to be failing IV abx therapy and would consider Vancomycin for bone penetration. 5.) Patient may benefit from OR procedure where abscesses can be fully explored and evaluated for tracking along fascial planes. Bone biopsy can be obtained at this time. 6.) Will continue to monitor labs and 4 phase bone scan which will aid in decision making process. 7.) Packing to continue to be changed BID Thank you for allowing me to participate in the care of this Patient. History of Present Illness Attending Physician: Mustapha Coley MD History of Present Illness Patient seen for right foot diabetic foot infection at bedside in no acute distress. Patient has no complaints. He is status post bedside I&D on 04/15/20 and 04/18/20. Allergies Allergy/AdvReac Type Severity Reaction Status Date / Time amoxicillin AdvReac Mild Gastrointestinal Verified 04/13/20 16:27 Upset Home Medications Medication Instructions Recorded Confirmed Type amlodipine 10 mg PO QAM 04/08/19 04/13/20 History atorvastatin 80 mg PO QAM 04/08/19 04/13/20 History alprazolam 1 mg tablet 1 mg PO DAILY PRN 10/14/19 04/13/20 History bupropion HCl 150 mg tablet,12 hr 150 mg PO QAM 10/14/19 04/13/20 History sustained-release blood sugar diagnostic #10 ea 12/01/19 04/13/20 History lancets #100 ea 12/01/19 04/13/20 History pregabalin 100 mg capsule 100 mg PO BID 12/01/19 04/13/20 History lisinopril 40 mg PO HS 01/04/20 04/13/20 History multivitamin 1 tab PO QAM 01/04/20 04/13/20 History amitriptyline 25 mg PO HS 01/14/20 04/13/20 History insulin glargine 100 unit/mL (3 45 unit SQ BID #2 box 02/21/20 04/13/20 Rx mL) subcutaneous pen pen needle, diabetic 31 gauge x #200 ea 02/21/20 04/13/20 Rx 3/16" carvedilol 6.25 mg tablet 12.5 mg PO BID tab 03/21/20 04/13/20 History insulin aspart U-100 100 unit/mL 25 unit SUBCUT TIDM ml 03/21/20 04/13/20 History (3 mL) subcutaneous pen nystatin 100,000 unit/gram topical 1 applic TOPICAL DAILY 14 Days #30 03/27/20 04/13/20 Rx powder g icosapent ethyl [Vascepa] 2 g PO BID 04/13/20 04/13/20 History blood-glucose meter,continuous #1 ea 04/16/20 Rx blood-glucose sensor #3 ea 04/16/20 Rx blood-glucose transmitter #1 ea 04/16/20 Rx Patient History Medical History (Updated 04/20/20 @ 11:23 by Fannie Fonseca MD) BJ (acute kidney injury) Anemia due to chronic kidney disease Chronic diarrhea reason for colonoscopy Diabetic nephropathy associated with type 2 diabetes mellitus DM neuropathy, painful DM retinopathy Habitual snoring never had a sleep study test done Hidradenitis suppurativa HTN (hypertension) Hyperlipidemia Kidney stones Morbid obesity with BMI of 45.0-49.9, adult Obesity Proteinuria Uncontrolled type 2 diabetes mellitus Surgical History History of cardiac cath 2014 ?? 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 History of eye surgery left eye multiple before eye removal History of tooth extraction History of wisdom tooth extraction Status post epidural steroid injection Family History Mother No problems noted. Father , Age 60, [place] Myocardial infarction Unknown Charcot-Ana disease Neuropathy Brother Family history of diabetes mellitus Other No family history of adverse response to anesthesia No significant family history Social History Smoking Status: Never smoker Second Hand Exposure: No; Do You Dip or Chew Tobacco: No; Tobacco Cessation Education Requested by Patient: No Hx Alcohol Use: No Hx Substance Use: No Preferred Language: Malawian Communication Ability: Unable Neonatal Pediatric Nurse Required: No Beliefs That Will Affect Care: None marital status: Current Living Situation: Spouse current occupational status: employed Other Information That Helps Us Care for You: No Feels Safe at Home: Yes Assistive Devices: Special Shoe Review of Systems Constitutional: as per Subjective / HPI Eyes: Denies vision problems Respiratory: No wheezing. Regular rate and rhythm Cardiovascular: Additional Comments: Denies chest pain Gastrointestinal: Denies Abdominal pain. Belly is soft and tender. 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 Focused Exam: Wound location: Plantar midfoot Incision induced wound location for drainage Wound base color and depth: Wound probes to muscle and tendon and 2nd and 3rd metatarsal bone Wound size (cm): 1.0 x 0.1 x 1.5 cm Odor: no malodor Drainage: mild serosanguineous exudate Undermining: minimal Borders: healthy Wound location: Right foot 3rd interspace Wound base color and depth: Wound probes to muscle and tendon, and probes to 3rd and fourth metatarsal 3rd and fourth proximal phalanx bone Wound size (cm): 2.1 x 0.9 x 2.3cm Odor: no malodor Drainage: moderate serosanguineous exudate Undermining: minimal Borders: healthy Wound location: Right foot 4th interspace full thickness ulcer Wound base color and depth: Wound probes to muscle and tendon, and fourth metatarsal, fourth phalanx bone Wound size (cm): 0.5 x 0.5 x 1.5cm Odor: no malodor Drainage: moderate serosanguineous exudate Undermining: minimal Borders: macerated Constitutional: well developed and well nourished Eyes: PERRL ENMT: external ear and nose normal, oropharynx normal Neck: trachea midline, no thyromegaly Respiratory: normal respiratory effort, lungs clear to auscultation Cardiovascular: Rate/Rhythm: regular rate and regular rhythm Chest (Breasts): Chest: normal inspection of chest Gastrointestinal (Abdomen): Inspection/Auscultation: abdomen normal to inspection Musculoskeletal: no cyanosis or clubbing, extremities motor strength 5/5 Head/Neck/Chest: normocephalic Skin: + ulcer (right foot) Neurologic: moves all extremities Motor/Sensory: + sensory deficit Psychiatric: A+Ox3, euthymic affect Results & Data ([facility]) Vital Signs (Past 12 Hours) Vital Signs Temp Pulse Resp BP Pulse Ox 04/23/20 07:00 36.5 C 88 0 L 124/68 96 04/22/20 22:55 36.9 C 88 20 133/70 98
[2020-04-23] MEDS: MULTIVITAMIN TAB PO SCH (08:15)
[2020-04-23] MEDS: carvediloL 12.5 MG TAB PO SCH ×2 (08:15→20:10)
[2020-04-23] MEDS: amLODIPine BESYLATE 5 MG TAB PO SCH (08:16)
[2020-04-23] MEDS: buPROPion SR 150 MG TABCR PO SCH (08:16)
[2020-04-23] MEDS: PREGABALIN 100 MG CAP PO SCH ×2 (08:22→20:15)
[2020-04-23] MEDS: IRON SUCROSE 200 MG in 0.9 % SODIUM CHLORIDE 100 ML IV SCH (08:24)
[2020-04-23] MEDS: CLOTRIMAZOLE 1% CR 15 GM TUBE EXT SCH ×2 (08:28→20:15)
[2020-04-23] MEDS: INSULIN ASPART 100 UNITS/ML 3 ML PEN SC SCH ×4 (09:04→20:43)
[2020-04-23] MEDS: INSULIN GLARGINE SOLOSTAR 100 UNITS/ML 3 ML PEN SC SCH (09:04)
--- NOTE | 2020-04-23 09:23 | Nephrology Progress Note ---
Date of Service April 23, 2020 Assessment & Plan (1) BJ (acute kidney injury): Creatinine stable. Volume status acceptable. Electrolytes appropriate. UA notable for microscopic hematuria. Imaging demonstrating bladder wall thickening. Outpatient urology follow up would be advised. No additional evaluation at this time. Document I/O's. Maintain even fluid balance. Repeat metabolic profile tomorrow AM. Medications appropriately dosed for kidney function. (2) Chronic kidney disease, stage IV (severe): CKD IIIB/IV. Secondary to diabetic nephropathy with high-grade proteinuria. (3) Proteinuria: Lisinopril held due to BJ. 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 Lisinopril held. (6) Diabetic nephropathy associated with type 2 diabetes mellitus: (7) Uncontrolled type 2 diabetes mellitus: (8) Anemia due to chronic kidney disease: Epogen 39664 units x 1 dose on 04/20. Venofer 200 mg IV /d x 5 doses. Admission and Anticipated Discharge Date Admission Date: April 13, 2020 Subjective No acute events overnight. Lex feels well this morning. No acute complaints or concerns. Denies any urinary symptoms at this time. I discussed the plan of care with Dr. Coley this AM. Review of Systems Review of Systems: All systems reviewed & are unremarkable except as noted in HPI & below Physical Exam Constitutional: WD/WN, vitals as above + obese; no acute distress Eyes: PERRL, conjunctivae normal, anicteric sclerae ENMT: external ear and nose normal, oropharynx normal Ears: no hearing impairment Neck: trachea midline Respiratory: normal respiratory effort, lungs clear to auscultation no cough Auscultation: no crackles, no rales and no wheezes Cardiovascular: RRR, no murmur, no edema Gastrointestinal (Abdomen): normal bowel sounds, soft, nontender, no hepatosplenomegaly Percussion/Palpation: abdomen nontender, no guarding and abdomen not rigid Musculoskeletal: RT foot nonhealing ulcer in dressing. Skin: no rashes, warm and dry Neurologic: moves all extremities and awake Psychiatric: A+Ox3, euthymic affect Results & Data ([facility]) Vital Signs (Past 12 Hours) Vital Signs Temp Pulse Resp BP Pulse Ox 04/23/20 07:00 36.5 C 88 0 L 124/68 96 02/14/21 22:55 36.9 C 88 20 133/70 98 Laboratory Results Laboratory Results - last 24 hr 04/22/20 04/22/20 04/22/20 11:46 16:28 20:12 WBC RBC Hgb Hct MCV MCH MCHC RDW Std Deviation RDW Coeff of Nicky Plt Count MPV Sodium Potassium Chloride Carbon Dioxide Anion Gap BUN Creatinine Est Cr Clr Drug Dosing Est GFR ( Amer) Est GFR (Non-Af Amer) BUN/Creatinine Ratio Glucose POC Glucose 146 H 97 104 H Calcium Magnesium 04/23/20 04/23/20 04/23/20 05:45 05:45 07:32 WBC 10.17 RBC 3.52 L Hgb 9.5 L Hct 30.0 L MCV 85.2 MCH 27.0 MCHC 31.7 L RDW Std Deviation 40.8 RDW Coeff of Nicky 13.5 Plt Count 402 H MPV 10.5 H Sodium 140 Potassium 4.2 Chloride 110 H Carbon Dioxide 24 Anion Gap 7.0 BUN 30 H Creatinine 2.41 H Est Cr Clr Drug Dosing 61.6 Est GFR ( Amer) 37.8 Est GFR (Non-Af Amer) 32.6 BUN/Creatinine Ratio 12.4 Glucose 99 POC Glucose 105 H Calcium 9.2 Magnesium 1.8 PG Care Time/CCT Total # of Minutes Spent Total Time Spent with Patient: Total time spent is greater than 50% in coordination of care (as documented) at patient's floor/unit and/or counseling patient: Coding Level of Care Code 44060 Subseq Hosp Care Lvl 3 Diagnoses BJ (acute kidney injury) N17.9 Chronic kidney disease, stage IV (severe) N18.4 Proteinuria R80.9 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
--- NOTE | 2020-04-23 12:31 | Hospitalist Progress Note ---
Date of Service April 23, 2020 Assessment & Plan (1) Diabetic foot ulcer with osteomyelitis: POD# 6 S/P I and D of abscess by Dr. Puri on 04/15. - Initially on dapto/cefepime however abx de-escalated to Ancef on 04/15 for cultures with staph species x 2 - Continue cefazolin x 6 weeks (which would likely be restarted if he needs further surgery) - Bone scan today. (2) Diabetic ulcer of left foot associated with type 2 diabetes mellitus, limited to breakdown of skin: * See above, OM not excluded on repeat imaging (contrast avoided with patient with CKD IV) (3) Uncontrolled type 2 diabetes mellitus: * Hemoglobin A1c 14 in January. * A1C: 13.4% * Total daily dose of insulin 165 units * Lantus 54 units twice daily * NovoLog: * Goal BSG Range: Low 110 mg/dL, High 140 mg/dL * Correction Factor: 5 mg/dL/unit * INS:CHO Ratio: 1 unit per 5 gms CHO consumed * BSGs have been acceptable * Consider addition of GLP-1 or similar for some appetite suppression as possible insulin increasing patient's hunger and still with A1c 13.4/uncontrolled * Follows with Endocrinology -- discuss starting at discharge vs follow up with Endocrine to start this therapy. He follows with Harvey Aburto and has appointment with him and PCP on Apr 24 per patient * Discussed with Dr. Aburto on 04/18 and patient has had severely poorly controlled DM2 and was on Invokana prior to seeing them recently but was too expensive. Did not was to do a SGLT2 but did not discuss GLP-1 * Will check with patients regarding medullary thyroid/etc/etc prior to starting Ozempic or similar at lowest dose and will need f/u with Endocrine (already scheduled as above) * --> Plans to start low dose Ozempic at discharge and will f/u with Dr. Aburto outpatient. (4) UNIQUE (obstructive sleep apnea): * Patient reports awaiting home sleep study results. * would likely have additional benefit on BP with CPAP as likely with UNIQUE (5) HTN (hypertension): * Continue amlodipine 10 mg p.o. every morning, carvedilol 12.5 mg p.o. twice daily * Continue to hold lisinopril 40 mg p.o. at bedtime for elevated Cr * BP 137/80 * Continue to monitor (6) Hyperlipidemia: * Continue atorvastatin 80 mg p.o. every morning (7) Chronic kidney disease, stage IV (severe): * Not diagnostic of BJ but elevated from his baseline * Had been on continuous IVF due to Cr peaked at 3.4 on admission-- appears baseline closer to 2.4-2.8 range (possible worsening over past year given diabetes as above) * Nephrology consulted as above * Patient had f/u appt with nephrology initially and missed appointment -- will need arranged at d/c given CKD IV and not previously established - Renal US with bladder wall thickening - Started Flomax 0.4mg HS on 04/21 to help with outlet obstruction and monitor PVR/Bladder scan as needed. If continues to retain would place [facility] and have patient follow up with Urology. (8) DVT prophylaxis: * PT/OT consults pending (recs for walker if d/c to home) -- they do have recommendations for rehab at discharge. We will monitor progression with off- loading shoe and continued PT/OT throughout weekend but may need to discuss rehab (he would ideally like home with home health) * Heparin SQ given decrease mobility Admission and Anticipated Discharge Date Admission Date: April 13, 2020 Subjective Doing well today. Awaiting bone scan. No current pain in the foot. Reports no fevers/chills, chest pain, shortness of breath, abdominal pain, nausea, or vomiting. Physical Exam Constitutional: WD/WN, vitals as above Eyes: EOM intact bilaterally; no conjunctival abnormality ENMT: external ear and nose normal, oropharynx normal Neck: trachea midline, no thyromegaly normal visual inspection Respiratory: normal respiratory effort, lungs clear to auscultation no respiratory distress Cardiovascular: RRR, no murmur, no edema Gastrointestinal (Abdomen): Inspection/Auscultation: abdomen normal to inspection; abdomen not distended Musculoskeletal: no cyanosis or clubbing, extremities motor strength 5/5 Extremities: + extremities abnormal to inspection (Right foot with bandanging) Skin: no rashes, warm and dry Neurologic: moves all extremities and awake Psychiatric: Orientation: alert, oriented to person and cooperative Results & Data Results & Data ([facility]) Vital Signs (Past 12 Hours) Vital Signs Temp Pulse Resp BP Pulse Ox 04/23/20 11:47 37.0 C 88 22 135/88 97 04/23/20 07:15 20 04/23/20 07:00 36.5 C 88 0 L 124/68 96 PG Care Time/CCT Total # of Minutes Spent Total Time Spent with Patient: Total time spent is greater than 50% in coordination of care (as documented) at patient's floor/unit and/or counseling patient: Coding Level of Care Code 22959 Subseq Hosp Care Lvl 2 Diagnoses Diabetic foot ulcer with osteomyelitis E11.621; E11.69; L97.509; M86.9 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
--- NOTE | 2020-04-23 14:42 | Pharmacy Report ---
Pharmacy Glycemic Short Note 2 - Date of Service April 23, 2020 - Glycemic Short BSG Results (Last 24 hours): 04/22/20 04/22/20 04/23/20 16:28 20:12 05:45 Glucose 99 POC Glucose 97 104 H 04/23/20 04/23/20 07:32 11:22 Glucose POC Glucose 105 H 138 H OUTPATIENT ANTIDIABETIC REGIMEN: * Basaglar 45 units SQ BID * Novolog 25 units SQ TIDM + SSI (up to max of 100 units bolus insulin per day) * A1c = 13.4% (04/14/20) ASSESSMENT: 04/23 * Patient received total of 83 units of insulin yesterday, of which 45 were basal insulin * Fasting BSG 99 mg/dL - BSGs on lower end of range yesterday / will scale back slightly on basal for this AM * Loosen CF/CR at lunch to hopefully avoid lower BSGs later on PLAN FOR INPATIENT GLYCEMIC CONTROL: * Basal insulin - Lantus 40-45 units daily based up on BSG value * Bolus insulin - loosen * NovoLog per scale ACHS or Q6hrs while NPO * Goal Range: Low 110 mg/dL - High 140 mg/dL * Correction Factor: 20 mg/dL/unit * Nutritional / Prandial insulin per carb ratio of 1 unit per 6 grams CHO consumed PLAN FOR DISCHARGE: * HbA1c = 13.4% is well above goal range. Would recommend a goal HbA1c of less than 7% given patient's age and comorbidities. * Patient follows with pre coder for diabetes management. Basaglar doses were most recently adjusted in February 2020 to 45 units BID. Given HbA1c is trending down, would not recommend any changes to insulin regimen upon discharge. Continue to follow-up with pre coder.
[2020-04-23] MEDS: AMITRIPTYLINE HCL 25 MG TAB PO SCH (20:09)
[2020-04-23] MEDS: TAMSULOSIN HCL 0.4 MG CAP PO SCH (20:09)
[2020-04-24] MEDS: ceFAZolin 2000MG 2,000 MG/15 ML SYR IV SCH ×3 (03:53→20:48)
[2020-04-24] MEDS: HEPARIN SOD 5,000 UNIT/0.5 ML VIAL SQ SCH ×3 (05:51→20:51)
[2020-04-24 06:15] LABS: Hematocrit (blood only) 31.8 % (42-52); Hemoglobin 10.1 g/dL (14.0-18.0); Mean Corpuscular Hemoglobin 27.3 pg (25-34); Mean Corpuscular Hgb Conc 31.8 g/dL (32-36); Mean Corpuscular Volume 85.9 fL (80-100); Mean Platelet Volume 10.8 fL (7.4-10.4); Platelet Count 453 K/uL (130-400); RDW Coefficient of Variation 13.7 % (11.5-14.5); RDW Standard Deviation 42.9 fL (36.4-46.3)
[2020-04-24 06:42] LABS: BUN Creatinine Ratio 12.6 (10-20); Calcium 8.6 mg/dl (8.5-10.1); Est GFR (African American) 35.1; Est GFR (Non-African American) 30.3; Potassium 4.4 mmol/L (3.5-5.1)
[2020-04-24] MEDS: amLODIPine BESYLATE 5 MG TAB PO SCH (08:21)
[2020-04-24] MEDS: MULTIVITAMIN TAB PO SCH (08:21)
[2020-04-24] MEDS: carvediloL 12.5 MG TAB PO SCH ×2 (08:21→20:49)
[2020-04-24] MEDS: buPROPion SR 150 MG TABCR PO SCH (08:21)
[2020-04-24] MEDS: PREGABALIN 100 MG CAP PO SCH ×2 (08:21→20:48)
[2020-04-24] MEDS: IRON SUCROSE 200 MG in 0.9 % SODIUM CHLORIDE 100 ML IV SCH (08:22)
[2020-04-24] MEDS: CLOTRIMAZOLE 1% CR 15 GM TUBE EXT SCH ×2 (08:22→20:51)
[2020-04-24] MEDS: INSULIN ASPART 100 UNITS/ML 3 ML PEN SC SCH ×4 (08:22→21:08)
[2020-04-24] MEDS: INSULIN GLARGINE SOLOSTAR 100 UNITS/ML 3 ML PEN SC SCH (08:23)
--- NOTE | 2020-04-24 12:16 | Nephrology Progress Note ---
Date of Service April 24, 2020 Assessment & Plan (1) BJ (acute kidney injury): Creatinine stable. Volume status acceptable. Electrolytes appropriate. UA notable for microscopic hematuria. Imaging demonstrating bladder wall thickening. Outpatient urology follow up would be advised. No additional evaluation at this time. Document I/O's. Maintain even fluid balance. Repeat metabolic profile tomorrow AM. Medications appropriately dosed for kidney function. (2) Chronic kidney disease, stage IV (severe): CKD IIIB/IV. Secondary to diabetic nephropathy with high-grade proteinuria. (3) Proteinuria: Lisinopril held due to BJ. 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 Lisinopril held. (6) Diabetic nephropathy associated with type 2 diabetes mellitus: (7) Uncontrolled type 2 diabetes mellitus: (8) Anemia due to chronic kidney disease: Epogen 27575 units x 1 dose on 04/20. Venofer 200 mg IV /d x 5 doses. Admission and Anticipated Discharge Date Admission Date: April 13, 2020 Subjective No acute events overnight. No complaints or concerns this AM. Review of Systems Review of Systems: All systems reviewed & are unremarkable except as noted in HPI & below Physical Exam Constitutional: well developed; no acute distress Eyes: no scleral abnormality and no corneal abnormality ENMT: Mouth: no oral mucosal abnormality and oral mucous membranes not dry Neck: normal visual inspection and trachea midline Respiratory: normal respiratory effort Auscultation: lungs clear to auscultation bilaterally Cardiovascular: Rate/Rhythm: regular rate Heart Sounds: normal S1 and normal S2 Extremities: no edema Musculoskeletal: Extremities: no cyanosis and no clubbing Skin: normal turgor; no lesions Neurologic: Motor/Sensory: no tremor and no asterixis Psychiatric: Orientation: alert and oriented x 3 Results & Data ([facility]) Vital Signs (Past 12 Hours) Vital Signs Temp Pulse Resp BP Pulse Ox 04/24/20 07:43 36.8 C 85 18 104/65 95 Laboratory Results Laboratory Results - last 24 hr 04/23/20 04/23/20 04/24/20 16:48 20:00 05:25 WBC 9.90 RBC 3.70 L Hgb 10.1 L Hct 31.8 L MCV 85.9 MCH 27.3 MCHC 31.8 L RDW Std Deviation 42.9 RDW Coeff of Nicky 13.7 Plt Count 453 H MPV 10.8 H Sodium Potassium Chloride Carbon Dioxide Anion Gap BUN Creatinine Est Cr Clr Drug Dosing Est GFR ( Amer) Est GFR (Non-Af Amer) BUN/Creatinine Ratio Glucose POC Glucose 253 H 105 H Calcium 04/24/20 04/24/20 04/24/20 05:25 07:25 11:25 WBC RBC Hgb Hct MCV MCH MCHC RDW Std Deviation RDW Coeff of Nicky Plt Count MPV Sodium 141 Potassium 4.4 Chloride 110 H Carbon Dioxide 25 Anion Gap 6.0 BUN 32 H Creatinine 2.56 H Est Cr Clr Drug Dosing 58.0 Est GFR ( Amer) 35.1 Est GFR (Non-Af Amer) 30.3 BUN/Creatinine Ratio 12.6 Glucose 105 H POC Glucose 112 H 148 H Calcium 8.6 PG Care Time/CCT Total # of Minutes Spent Total Time Spent with Patient: Total time spent is greater than 50% in coordination of care (as documented) at patient's floor/unit and/or counseling patient: Coding Level of Care Code 92795 Subseq Hosp Care Lvl 3 Diagnoses BJ (acute kidney injury) N17.9 Chronic kidney disease, stage IV (severe) N18.4 Proteinuria R80.9 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
--- NOTE | 2020-04-24 15:37 | Nuclear Medicine Report ---
NM bone 4 phase whole body CLINICAL HISTORY: Foot infection. Possible osteomyelitis. COMPARISON STUDY: MRI dated 04/17/2020 FINDINGS: The patient was injected with 25.2 mCi of technetium 99m MDP. A vascular sequence centered on the fee t was performed. There is right foot hyperemia. Blood pool images demonstrate increased activity invo lving the anterior aspect of the right foot. Three-hour delayed whole-body images were acquired. The bladder was distended obscures portions of the pelvis. There is increased activity involving the righ t foot. Static images of the right foot were also performed. There is increased activity within the r ight foot, most pronounced at the level of the second and third distal metatarsals, and proximal phal anges. There is minor increased activity within the lateral aspect of the left midfoot. There is also minor increased activity at the level of the proximal phalanges of the fourth and fifth toes of the right foot. The patient was brought back for 24 hour imaging. There is persistent increased activity involving the second and third toes near the level of the metatarsal phalangeal joints IMPRESSION: 1. Positive 4 phase bone scan with right foot hyperemia, increased blood pool activity, and increas ed delayed activity most pronounced at the level of the second and third distal metatarsals and proxi mal phalanges but also at the level of the fourth and fifth metatarsal phalangeal joints. The finding s are viewed as suspicious for osteomyelitis. ACT 112: Negative or not required by law. Electronically signed by: Denton Patton M.D. 04/24/2020 3:36 PM
[2020-04-24] MEDS: AMITRIPTYLINE HCL 25 MG TAB PO SCH (20:48)
[2020-04-24] MEDS: TAMSULOSIN HCL 0.4 MG CAP PO SCH (20:48)
--- NOTE | 2020-04-24 21:18 | Podiatry Consultation ---
Date of Consultation April 24, 2020 Assessment & Plan (1) Diabetic ulcer of left foot associated with type 2 diabetes mellitus, limited to breakdown of skin: 1.) Patient seen, evaluated, and treated. S/P BEDSIDE I&D 04/15/20 and 04/18/20. 2.) WBC 9.9 3.) Bone scan results show signs of osteomyelitis in right forefoot. 4.) I offered Patient surgical care with Transmetatarsal amputation. Patient declines surgical services at this time. I reviewed use of 6-8 weeks IV abx with Patient. Discussed step down facility after discharge, Patient declines skilled facility. 5.) Patient will require PICC Line 6.) I am happy to provide dressing changes as out Patient. Ideally this would be done daily. At home nursing will need to provide services with dressing changes and Patient will require education on IV abx delivery. 7.) ID to communicate if they require Bone biopsy for culture and sensitivities. Thank you for allowing me to participate in the care of this Patient. Dr. Puri cell [phone] History of Present Illness Attending Physician: Eloy Christianson Allergies Allergy/AdvReac Type Severity Reaction Status Date / Time amoxicillin AdvReac Mild Gastrointestinal Verified 04/13/20 16:27 Upset Home Medications Medication Instructions Recorded Confirmed Type amlodipine 10 mg PO QAM 04/08/19 04/13/20 History atorvastatin 80 mg PO QAM 04/08/19 04/13/20 History alprazolam 1 mg tablet 1 mg PO DAILY PRN 10/14/19 04/13/20 History bupropion HCl 150 mg tablet,12 hr 150 mg PO QAM 10/14/19 04/13/20 History sustained-release blood sugar diagnostic #10 ea 12/01/19 04/13/20 History lancets #100 ea 12/01/19 04/13/20 History pregabalin 100 mg capsule 100 mg PO BID 12/01/19 04/13/20 History lisinopril 40 mg PO HS 01/04/20 04/13/20 History multivitamin 1 tab PO QAM 01/04/20 04/13/20 History amitriptyline 25 mg PO HS 01/14/20 04/13/20 History insulin glargine 100 unit/mL (3 45 unit SQ BID #2 box 12/15/20 02/05/21 Rx mL) subcutaneous pen pen needle, diabetic 31 gauge x #200 ea 02/21/20 04/13/20 Rx 3/16" carvedilol 6.25 mg tablet 12.5 mg PO BID tab 03/21/20 04/13/20 History insulin aspart U-100 100 unit/mL 25 unit SUBCUT TIDM ml 03/21/20 04/13/20 History (3 mL) subcutaneous pen nystatin 100,000 unit/gram topical 1 applic TOPICAL DAILY 14 Days #30 03/27/20 04/13/20 Rx powder g icosapent ethyl [Vascepa] 2 g PO BID 04/13/20 04/13/20 History blood-glucose meter,continuous #1 ea 04/16/20 Rx blood-glucose sensor #3 ea 04/16/20 Rx blood-glucose transmitter #1 ea 04/16/20 Rx Patient History Medical History (Updated 04/20/20 @ 11:23 by Fannie Fonseca MD) BJ (acute kidney injury) Anemia due to chronic kidney disease Chronic diarrhea reason for colonoscopy Diabetic nephropathy associated with type 2 diabetes mellitus DM neuropathy, painful DM retinopathy Habitual snoring never had a sleep study test done Hidradenitis suppurativa HTN (hypertension) Hyperlipidemia Kidney stones Morbid obesity with BMI of 45.0-49.9, adult Obesity Proteinuria Uncontrolled type 2 diabetes mellitus Surgical History History of cardiac cath 2014 ?? 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 History of eye surgery left eye multiple before eye removal History of tooth extraction History of wisdom tooth extraction Status post epidural steroid injection Family History Mother No problems noted. 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 Regular rate and rhythm Cardiovascular: Additional Comments: Denies chest pain Gastrointestinal: Denies Abdominal pain. Belly is soft and tender. 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 all digits of feet bilateral Focused Exam: Wound location: Plantar midfoot Incision induced wound location for drainage Wound base color and depth: Wound probes to muscle and tendon and 2nd and 3rd metatarsal bone Wound size (cm): 1.0 x 0.1 x 1.5 cm Odor: no malodor Drainage: mild serosanguineous exudate Undermining: minimal Borders: healthy Wound location: Right foot 3rd interspace Wound base color and depth: Wound probes to muscle and tendon, and probes to 3rd and fourth metatarsal 3rd and fourth proximal phalanx bone Wound size (cm): 2.1 x 0.9 x 2.3cm Odor: no malodor Drainage: moderate serosanguineous exudate Undermining: minimal Borders: healthy Wound location: Right foot 4th interspace full thickness ulcer Wound base color and depth: Wound probes to muscle and tendon, and fourth metatarsal, fourth phalanx bone Wound size (cm): 0.5 x 0.5 x 1.5cm Odor: no malodor Drainage: moderate serosanguineous exudate Undermining: minimal Borders: macerated Constitutional: well developed and well nourished Eyes: PERRL ENMT: external ear and nose normal, oropharynx normal Neck: trachea midline, no thyromegaly Respiratory: normal respiratory effort, lungs clear to auscultation Cardiovascular: Rate/Rhythm: regular rate and regular rhythm Chest (Breasts): Chest: normal inspection of chest Gastrointestinal (Abdomen): Inspection/Auscultation: abdomen normal to insp ection Musculoskeletal: no cyanosis or clubbing, extremities motor strength 5/5 Head/Neck/Chest: normocephalic Skin: + ulcer (right foot) Neurologic: moves all extremities Motor/Sensory: + sensory deficit Psychiatric: A+Ox3, euthymic affect Results & Data ([facility]) Vital Signs (Past 12 Hours) Vital Signs Temp Pulse Resp BP Pulse Ox 04/24/20 20:54 36.7 C 96 H 16 165/95 H 98
--- NOTE | 2020-04-24 21:37 | Hospitalist Progress Note ---
Date of Service April 24, 2020 Assessment & Plan (1) Diabetic foot ulcer with osteomyelitis: S/P I and D of abscess by Dr. Puri on 04/15. - Initially on dapto/cefepime however abx de-escalated to Ancef on 04/15 for cultures with staph species x 2 - Continue cefazolin x 6 weeks (which would likely be restarted if he needs further surgery) - Bone scan today: showed likely ostemomyelitis. (2) Diabetic ulcer of left foot associated with type 2 diabetes mellitus, limited to breakdown of skin: * See above, OM not excluded on repeat imaging (contrast avoided with patient with CKD IV) (3) Uncontrolled type 2 diabetes mellitus: * Hemoglobin A1c 14 in January. * A1C: 13.4% * Total daily dose of insulin 165 units * Lantus 54 units twice daily * NovoLog: * Goal BSG Range: Low 110 mg/dL, High 140 mg/dL * Correction Factor: 5 mg/dL/unit * INS:CHO Ratio: 1 unit per 5 gms CHO consumed * BSGs have been acceptable * Consider addition of GLP-1 or similar for some appetite suppression as possible insulin increasing patient's hunger and still with A1c 13.4/uncontrolled * Follows with Endocrinology -- discuss starting at discharge vs follow up with Endocrine to start this therapy. He follows with Harvey Aburto and has appointment with him and PCP on Apr 24 per patient * Discussed with Dr. Aburto on 04/18 and patient has had severely poorly controlled DM2 and was on Invokana prior to seeing them recently but was too expensive. Did not was to do a SGLT2 but did not discuss GLP-1 * Will check with patients regarding medullary thyroid/etc/etc prior to starting Ozempic or similar at lowest dose and will need f/u with Endocrine (already scheduled as above) * --> Plans to start low dose Ozempic at discharge and will f/u with Dr. Aburto outpatient. (4) UNIQUE (obstructive sleep apnea): * Patient reports awaiting home sleep study results. * would likely have additional benefit on BP with CPAP as likely with UNIQUE (5) HTN (hypertension): * Continue amlodipine 10 mg p.o. every morning, carvedilol 12.5 mg p.o. twice daily * Continue to hold lisinopril 40 mg p.o. at bedtime for elevated Cr * BP 137/80 * Continue to monitor (6) Hyperlipidemia: * Continue atorvastatin 80 mg p.o. every morning (7) Chronic kidney disease, stage IV (severe): * Not diagnostic of BJ but elevated from his baseline * Had been on continuous IVF due to Cr peaked at 3.4 on admission-- appears baseline closer to 2.4-2.8 range (possible worsening over past year given diabetes as above) * Nephrology consulted as above * Patient had f/u appt with nephrology initially and missed appointment -- will need arranged at d/c given CKD IV and not previously established - Renal US with bladder wall thickening - Started Flomax 0.4mg HS on 04/21 to help with outlet obstruction and monitor PVR/Bladder scan as needed. If continues to retain would place [facility] and have patient follow up with Urology. (8) DVT prophylaxis: * PT/OT consults pending (recs for walker if d/c to home) -- they do have recommendations for rehab at discharge. We will monitor progression with off- loading shoe and continued PT/OT throughout weekend but may need to discuss rehab (he would ideally like home with home health) * Heparin SQ given decrease mobility Admission and Anticipated Discharge Date Admission Date: April 13, 2020 Subjective Patient reports feeling well. He has no new complaints. Review of Systems Review of Systems: All systems reviewed & are unremarkable except as noted in HPI & below Physical Exam Physical Exam: Constitutional: well developed and + morbidly obese; + not well nourished and no acute distress Eyes: + anicteric sclerae; pupils not irregular ENMT: Mouth: oral mucous membranes not dry Neck: trachea midline thick neck, possible thyroidmegaly Respiratory: normal respiratory effort, lungs clear to auscultation Cardiovascular: Rate/Rhythm: regular rhythm and tachycardic Heart Sounds: no murmur Extremities: normal capillary refill and + pedal edema (1+ b/l equal pre-tibial); no calf tenderness Gastrointestinal (Abdomen): normal bowel sounds, soft, nontender, no hepatosplenomegaly Musculoskeletal: no cyanosis or clubbing, extremities motor strength 5/5 Skin: dry dressing noted on right foot. Callus on lateral aspect of left foot Neurologic: moves all extremities and awake; not confused Psychiatric: A+Ox3, euthymic affect Results & Data Results & Data ([facility]) Vital Signs (Past 12 Hours) Vital Signs Temp Pulse Resp BP Pulse Ox 04/24/20 20:54 36.7 C 96 H 16 165/95 H 98 PG Care Time/CCT Total # of Minutes Spent Total Time Spent with Patient: Total time spent is greater than 50% in coordination of care (as documented) at patient's floor/unit and/or counseling patient: Coding Level of Care Code 05429 Subseq Hosp Care Lvl 2 Diagnoses Diabetic foot ulcer with osteomyelitis E11.621; E11.69; L97.509; M86.9 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
[2020-04-25] MEDS: ceFAZolin 2000MG 2,000 MG/15 ML SYR IV SCH ×3 (03:24→20:35)
[2020-04-25 06:32] LABS: Basophils # (auto) 0.03 K/uL (0-0.2); Basophils % (auto) 0.3 %; Eosinophils # (auto) 0.18 K/uL (0-0.5); Eosinophils % (auto) 1.8 %; Hematocrit (blood only) 30.5 % (42-52); Hemoglobin 9.6 g/dL (14.0-18.0); Immature Granulocytes # (auto) 0.07 K/uL (0.00-0.02); Immature Granulocytes % (auto) 0.7 %; Lymphocytes # (auto) 3.01 K/uL (1.2-3.4); Lymphocytes % (auto) 30.1 %; Mean Corpuscular Hemoglobin 27.2 pg (25-34); Mean Corpuscular Hgb Conc 31.5 g/dL (32-36); Mean Corpuscular Volume 86.4 fL (80-100); Mean Platelet Volume 10.7 fL (7.4-10.4); Neutrophils # (auto) 6.01 K/uL (1.4-6.5); Neutrophils % (auto) 60.1 %; Platelet Count 435 K/uL (130-400); RDW Coefficient of Variation 14.1 % (11.5-14.5); RDW Standard Deviation 43.3 fL (36.4-46.3); Red Blood Count 3.53 M/uL (4.7-6.1)
[2020-04-25] MEDS: HEPARIN SOD 5,000 UNIT/0.5 ML VIAL SQ SCH ×3 (06:32→20:35)
[2020-04-25 07:02] LABS: Albumin Level 2.3 gm/dl (3.4-5.0); BUN Creatinine Ratio 11.7 (10-20); Creatinine Clr Calc Pharmacy 58.2 ml/min; Est GFR (African American) 35.3; Est GFR (Non-African American) 30.4; Potassium 4.3 mmol/L (3.5-5.1)
[2020-04-25 07:03] LABS: Phosphorus 3.7 mg/dl (2.5-4.9)
[2020-04-25] MEDS: buPROPion SR 150 MG TABCR PO SCH (08:29)
[2020-04-25] MEDS: carvediloL 12.5 MG TAB PO SCH ×2 (08:29→20:35)
[2020-04-25] MEDS: amLODIPine BESYLATE 5 MG TAB PO SCH (08:29)
[2020-04-25] MEDS: MULTIVITAMIN TAB PO SCH (08:29)
[2020-04-25] MEDS: INSULIN GLARGINE SOLOSTAR 100 UNITS/ML 3 ML PEN SC SCH (08:31)
[2020-04-25] MEDS: INSULIN ASPART 100 UNITS/ML 3 ML PEN SC SCH ×4 (08:31→20:36)
[2020-04-25] MEDS: PREGABALIN 100 MG CAP PO SCH ×2 (08:35→20:35)
[2020-04-25] MEDS: CLOTRIMAZOLE 1% CR 15 GM TUBE EXT SCH ×2 (08:35→20:38)
--- NOTE | 2020-04-25 10:36 | Nephrology Progress Note ---
Date of Service April 25, 2020 Assessment & Plan (1) BJ (acute kidney injury): Creatinine stable. Volume status acceptable. Electrolytes appropriate. UA notable for microscopic hematuria. Imaging demonstrating bladder wall thickening. Outpatient urology follow up would be advised. No additional evaluation at this time. Document I/O's. Maintain even fluid balance. Medications appropriately dosed for kidney function. No additional recommendations. Nephrology will follow peripherally. Please call with questions or concerns. Outpatient follow up can be arranged with Dr. Fonseca at discharge. (2) Chronic kidney disease, stage IV (severe): CKD IIIB/IV. Secondary to diabetic nephropathy with high-grade proteinuria. (3) Proteinuria: Lisinopril held due to BJ. 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 Lisinopril held but would be reasonable to restart as needed if BP elevated. (6) Diabetic nephropathy associated with type 2 diabetes mellitus: (7) Uncontrolled type 2 diabetes mellitus: (8) Anemia due to chronic kidney disease: Epogen 73209 units x 1 dose on 04/20. Venofer 200 mg IV /d x 5 doses. Admission and Anticipated Discharge Date Admission Date: April 13, 2020 Subjective No acute events overnight. No complaints or concerns this AM. Review of Systems Review of Systems: All systems reviewed & are unremarkable except as noted in HPI & below Physical Exam Constitutional: well developed; no acute distress Eyes: no scleral abnormality and no corneal abnormality ENMT: Mouth: no oral mucosal abnormality and oral mucous membranes not dry Neck: normal visual inspection and trachea midline Respiratory: normal respiratory effort Auscultation: lungs clear to auscul tation bilaterally Cardiovascular: Rate/Rhythm: regular rate Heart Sounds: normal S1 and normal S2 Extremities: no edema Musculoskeletal: Extremities: no cyanosis and no clubbing Skin: normal turgor; no lesions Neurologic: Motor/Sensory: no tremor and no asterixis Psychiatric: Orientation: alert and oriented x 3 Results & Data ([facility]) Vital Signs (Past 12 Hours) Vital Signs Temp Pulse Resp BP Pulse Ox 04/25/20 07:23 36.5 C 82 16 137/79 96 04/24/20 23:44 36.6 C 88 20 122/69 97 Laboratory Results Laboratory Results - last 24 hr 04/24/20 04/24/20 04/24/20 11:25 16:36 20:49 WBC RBC Hgb Hct MCV MCH MCHC RDW Std Deviation RDW Coeff of Nicky Plt Count MPV Immature Gran % (Auto) Neut % (Auto) Lymph % (Auto) [place] % (Auto) Eos % (Auto) Baso % (Auto) Neut # (Auto) Lymph # (Auto) [place] # (Auto) Eos # (Auto) Baso # (Auto) Immature Gran # (Auto) ESR Sodium Potassium Chloride Carbon Dioxide Anion Gap BUN Creatinine Est Cr Clr Drug Dosing Est GFR ( Amer) Est GFR (Non-Af Amer) BUN/Creatinine Ratio Glucose POC Glucose 148 H 163 H 99 Calcium Phosphorus Albumin Procalcitonin 04/25/20 04/25/20 04/25/20 06:13 06:13 06:13 WBC 10.00 RBC 3.53 L Hgb 9.6 L Hct 30.5 L MCV 86.4 MCH 27.2 MCHC 31.5 L RDW Std Deviation 43.3 RDW Coeff of Nicky 14.1 Plt Count 435 H MPV 10.7 H Immature Gran % (Auto) 0.7 Neut % (Auto) 60.1 Lymph % (Auto) 30.1 [place] % (Auto) 7.0 Eos % (Auto) 1.8 Baso % (Auto) 0.3 Neut # (Auto) 6.01 Lymph # (Auto) 3.01 [place] # (Auto) 0.70 H Eos # (Auto) 0.18 Baso # (Auto) 0.03 Immature Gran # (Auto) 0.07 H ESR 75 H Sodium 139 Potassium 4.3 Chloride 109 H Carbon Dioxide 25 Anion Gap 6.0 BUN 30 H Creatinine 2.55 H Est Cr Clr Drug Dosing 58.2 Est GFR ( Amer) 35.3 Est GFR (Non-Af Amer) 30.4 BUN/Creatinine Ratio 11.7 Glucose 113 H POC Glucose Calcium 9.0 Phosphorus 3.7 Albumin 2.3 L Procalcitonin 04/25/20 04/25/20 06:13 07:39 WBC RBC Hgb Hct MCV MCH MCHC RDW Std Deviation RDW Coeff of Nicky Plt Count MPV Immature Gran % (Auto) Neut % (Auto) Lymph % (Auto) [place] % (Auto) Eos % (Auto) Baso % (Auto) Neut # (Auto) Lymph # (Auto) [place] # (Auto) Eos # (Auto) Baso # (Auto) Immature Gran # (Auto) ESR Sodium Potassium Chloride Carbon Dioxide Anion Gap BUN Creatinine Est Cr Clr Drug Dosing Est GFR ( Amer) Est GFR (Non-Af Amer) BUN/Creatinine Ratio Glucose POC Glucose 126 H Calcium Phosphorus Albumin Procalcitonin 0.07 PG Care Time/CCT Total # of Minutes Spent Total Time Spent with Patient: Total time spent is greater than 50% in coordination of care (as documented) at patient's floor/unit and/or counseling patient: Coding Level of Care Code 67365 Subseq Hosp Care Lvl 3 Diagnoses BJ (acute kidney injury) N17.9 Chronic kidney disease, stage IV (severe) N18.4 Proteinuria R80.9 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
--- NOTE | 2020-04-25 11:21 | Pharmacy Report ---
Pharmacy Glycemic Short Note 2 - Date of Service April 25, 2020 - Glycemic Short BSG Results (Last 24 hours): OUTPATIENT ANTIDIABETIC REGIMEN: * Basaglar 45 units SQ BID * Novolog 25 units SQ TIDM + SSI (up to max of 100 units bolus insulin per day) * A1c = 13.4% (04/14/20) ASSESSMENT: 04/25: * Lex received a total of 76 units of insulin yesterday * 45 units basal + 31 units bolus * BSGs were well controlled at [phone] mg/dL * Fasting BSG was well controlled this AM at 126 mg/dL * No change required to insulin regimen at this time 04/23: * Patient received total of 83 units of insulin yesterday, of which 45 were basal insulin * Fasting BSG 99 mg/dL - BSGs on lower end of range yesterday / will scale back slightly on basal for this AM * Loosen CF/CR at lunch to hopefully avoid lower BSGs later on PLAN FOR INPATIENT GLYCEMIC CONTROL: * Basal insulin - no change * Lantus 40-45 units daily based up on BSG value * 40 units for BSG < 110 mg/dL; 45 units for BSG 110 mg/dL or greater * Bolus insulin - no change * NovoLog per scale ACHS or Q6hrs while NPO * Goal Range: Low 110 mg/dL - High 140 mg/dL * Correction Factor: 20 mg/dL/unit * Nutritional / Prandial insulin per carb ratio of 1 unit per 6 grams CHO consumed PLAN FOR DISCHARGE: * HbA1c = 13.4% is well above goal range. Would recommend a goal HbA1c of less than 7% given patient's age and comorbidities. * Patient follows with [facility] injection [facility] for diabetes management. Basaglar doses were most recently adjusted in February 2020 to 45 units BID. Given HbA1c is trending down, would not recommend any changes to insulin regimen upon discharge. Continue to follow-up with [facility].
[2020-04-25] MEDS: TAMSULOSIN HCL 0.4 MG CAP PO SCH (20:35)
[2020-04-25] MEDS: AMITRIPTYLINE HCL 25 MG TAB PO SCH (20:35)
[2020-04-25] MEDS: ACETAMINOPHEN 325 MG TAB PO PRN (20:45)
--- NOTE | 2020-04-25 21:21 | Podiatry Consultation ---
Date of Consultation April 25, 2020 Assessment & Plan (1) Diabetic ulcer of left foot associated with type 2 diabetes mellitus, limited to breakdown of skin: 1.) Patient seen, evaluated, and treated. S/P BEDSIDE I&D 04/15/20 and 04/18/20. 2.) WBC 10 3.) Bone scan results show signs of osteomyelitis in right forefoot. 4.) I offered Patient surgical care with Transmetatarsal amputation. Patient declines surgical services at this time. I reviewed use of 6-8 weeks IV abx with Patient. Discussed step down facility after discharge, Patient declines skilled facility. 5.) Patient awaiting PICC Line 6.) Patient scheduled for Home Health for IV abx ANCEF and dressing changes. 7.) Patient scheduled for Thursday afternoon office appointment for dressing change and evaluation 8.) Patient to be discharged with Wound Vac and wound Vac supplies for outpatient therapy Thank you for allowing me to participate in the care of this Patient. Dr. Puri cell [phone] History of Present Illness Attending Physician: Eloy Christianson History of Present Illness Patient seen at bedside resting comfortably. He relates no complaints. His dressing appears intact. Allergies Allergy/AdvReac Type Severity Reaction Status Date / Time amoxicillin AdvReac Mild Gastrointestinal Verified 04/13/20 16:27 Upset Home Medications Medication Instructions Recorded Confirmed Type amlodipine 10 mg PO QAM 04/08/19 04/13/20 History atorvastatin 80 mg PO QAM 04/08/19 04/13/20 History alprazolam 1 mg tablet 1 mg PO DAILY PRN 10/14/19 04/13/20 History bupropion HCl 150 mg tablet,12 hr 150 mg PO QAM 10/14/19 04/13/20 History sustained-release blood sugar diagnostic #10 ea 12/01/19 04/13/20 History lancets #100 ea 12/01/19 04/13/20 History pregabalin 100 mg capsule 100 mg PO BID 12/01/19 04/13/20 History lisinopril 40 mg PO HS 01/04/20 04/13/20 History multivitamin 1 tab PO QAM 01/04/20 04/13/20 History amitriptyline 25 mg PO HS 01/14/20 04/13/20 History insulin glargine 100 unit/mL (3 45 unit SQ BID #2 box 02/21/20 04/13/20 Rx mL) subcutaneous pen pen needle, diabetic 31 gauge x #200 ea 02/21/20 04/13/20 Rx 3/16" carvedilol 6.25 mg tablet 12.5 mg PO BID tab 03/21/20 04/13/20 History insulin aspart U-100 100 unit/mL 25 unit SUBCUT TIDM ml 03/21/20 04/13/20 History (3 mL) subcutaneous pen nystatin 100,000 unit/gram topical 1 applic TOPICAL DAILY 14 Days #30 03/27/20 04/13/20 Rx powder g icosapent ethyl [Vascepa] 2 g PO BID 04/13/20 04/13/20 History blood-glucose meter,continuous #1 ea 04/16/20 Rx blood-glucose sensor #3 ea 04/16/20 Rx blood-glucose transmitter #1 ea 04/16/20 Rx Patient History Medical History (Updated 04/20/20 @ 11:23 by Fannie Fonseca MD) BJ (acute kidney injury) Anemia due to chronic kidney disease Chronic diarrhea reason for colonoscopy Diabetic nephropathy associated with type 2 diabetes mellitus DM neuropathy, painful DM retinopathy Habitual snoring never had a sleep study test done Hidradenitis suppurativa HTN (hypertension) Hyperlipidemia Kidney stones Morbid obesity with BMI of 45.0-49.9, adult Obesity Proteinuria Uncontrolled type 2 diabetes mellitus Surgical History History of cardiac cath 2014 ?? 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 History of eye surgery left eye multiple before eye removal History of tooth extraction History of wisdom tooth extraction Status post epidural steroid injection Family History Mother No problems noted. Father , Age 60, [place] Myocardial infarction Unknown Charcot-Ana disease Neuropathy Brother Family history of diabetes mellitus Other No family history of adverse response to anesthesia No significant family history Social History Smoking Status: Never smoker Second Hand Exposure: No; Do You Dip or Chew Tobacco: No; Tobacco Cessation Education Requested by Patient: No Hx Alcohol Use: No Hx Substance Use: No Preferred Language: Armenian Communication Ability: Unable Brick Wheeler Required: No Beliefs That Will Affect Care: None marital status: Current Living Situation: Spouse current occupational status: employed Other Information That Helps Us Care for You: No Feels Safe at Home: Yes Assistive Devices: None Review of Systems Constitutional: as per Subjective / HPI Eyes: Denies vision problems Respiratory: No wheezing. Regular rate and rhythm Cardiovascular: Additional Comments: Denies chest pain Gastrointestinal: Denies Abdominal pain. Belly is soft and tender. 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 ANALYST wnl to all digits of feet bilateral Focused Exam: Wound location: Plantar midfoot Incision induced wound location for drainage Wound base color and depth: Wound probes to muscle and tendon and 2nd and 3rd metatarsal bone Wound size (cm): 1.0 x 0.1 x 1.5 cm Odor: no malodor Drainage: mild serosanguineous exudate Undermining: minimal Borders: healthy Wound location: Right foot 3rd interspace Wound base color and depth: Wound probes to muscle and tendon, and probes to 3rd and fourth metatarsal 3rd and fourth proximal phalanx bone Wound size (cm): 2.1 x 0.9 x 2.3cm Odor: no malodor Drainage: moderate serosanguineous exudate Undermining: minimal Borders: healthy Wound location: Right foot 4th interspace full thickness ulcer Wound base color and depth: Wound probes to muscle and tendon, and fourth metatarsal, fourth phalanx bone Wound size (cm): 0.5 x 0.5 x 1.5cm Odor: no malodor Drainage: moderate serosanguineous exudate Undermining: minimal Borders: macerated Constitutional: well developed and well nourished Eyes: PERRL ENMT: external ear and nose normal, oropharynx normal Neck: trachea midline, no thyromegaly Respiratory: normal respiratory effort, lungs clear to auscultation Cardiovascular: Rate/Rhythm: regular rate and regular rhythm Chest (Breasts): Chest: normal inspection of chest Gastrointestinal (Abdomen): Inspection/Auscultation: abdomen normal to inspection Musculoskeletal: no cyanosis or clubbing, extremities motor strength 5/5 Head/Neck/Chest: normocephalic Skin: + ulcer (right foot) Neurologic: moves all extremities Motor/Sensory: + sensory deficit Psychiatric: A+Ox3, euthymic affect Results & Data ([facility]) Vital Signs (Past 12 Hours) Vital Signs Temp Pulse Resp BP Pulse Ox 04/25/20 20:33 94 H 145/93 H 04/25/20 15:24 36.6 C 104 H 16 135/86 99 04/25/20 11:46 37.1 C 100 H 18 165/64 H 92
--- NOTE | 2020-04-25 22:09 | Hospitalist Progress Note ---
Date of Service April 25, 2020 Assessment & Plan (1) Diabetic foot ulcer with osteomyelitis: S/P I and D of abscess by Dr. Puri on 04/15. - Initially on dapto/cefepime however abx de-escalated to Ancef on 04/15 for cultures with staph species x 2 - Continue cefazolin x 6 weeks (which would likely be restarted if he needs further surgery) - Bone scan today: showed likely osteomyelitis. will continue antibiotics cefazolin for 6-8 weeks, (2) Diabetic ulcer of left foot associated with type 2 diabetes mellitus, limited to breakdown of skin: * See above, OM not excluded on repeat imaging (contrast avoided with patient with CKD IV) (3) Uncontrolled type 2 diabetes mellitus: * Hemoglobin A1c 14 in January. * A1C: 13.4% * Total daily dose of insulin 165 units * Lantus 54 units twice daily * NovoLog: * Goal BSG Range: Low 110 mg/dL, High 140 mg/dL * Correction Factor: 5 mg/dL/unit * INS:CHO Ratio: 1 unit per 5 gms CHO consumed * BSGs have been acceptable * Consider addition of GLP-1 or similar for some appetite suppression as possible insulin increasing patient's hunger and still with A1c 13.4/uncontrolled * Follows with Endocrinology -- discuss starting at discharge vs follow up with Endocrine to start this therapy. He follows with Harvey Aburto and has appointment with him and PCP on Apr 24 per patient * Discussed with Dr. Aburto on 04/18 and patient has had severely poorly controlled DM2 and was on Invokana prior to seeing them recently but was too expensive. Did not was to do a SGLT2 but did not discuss GLP-1 * Will check with patients regarding medullary thyroid/etc/etc prior to starting Ozempic or similar at lowest dose and will need f/u with Endocrine (already scheduled as above) * --> Plans to start low dose Ozempic at discharge and will f/u with Dr. Aburto outpatient. (4) UNIQUE (obstructive sleep apnea): * Patient reports awaiting home sleep study results. * would likely have additional benefit on BP with CPAP as likely with UNIQUE (5) HTN (hypertension): * Continue amlodipine 10 mg p.o. every morning, carvedilol 12.5 mg p.o. twice daily * Continue to hold lisinopril 40 mg p.o. at bedtime for elevated Cr * BP 137/80 * Continue to monitor (6) Hyperlipidemia: * Continue atorvastatin 80 mg p.o. every morning (7) Chronic kidney disease, stage IV (severe): * Not diagnostic of BJ but elevated from his baseline * Had been on continuous IVF due to Cr peaked at 3.4 on admission-- appears baseline closer to 2.4-2.8 range (possible worsening over past year given diabetes as above) * Nephrology consulted as above * Patient had f/u appt with nephrology initially and missed appointment -- will need arranged at d/c given CKD IV and not previously established - Renal US with bladder wall thickening - Started Flomax 0.4mg HS on 04/21 to help with outlet obstruction and monitor PVR/Bladder scan as needed. If continues to retain would place Patten and have patient follow up with Urology. (8) DVT prophylaxis: * PT/OT consults pending (recs for walker if d/c to home) -- they do have recommendations for rehab at discharge. We will monitor progression with off- loading shoe and continued PT/OT throughout weekend but may need to discuss rehab (he would ideally like home with home health) * Heparin SQ given decrease mobility Possible thyroidmegaly. will defer to PCP. Admission and Anticipated Discharge Date Admission Date: April 13, 2020 Subjective Patient reports feeling well. He has no new complaints. Review of Systems Review of Systems: All systems reviewed & are unremarkable except as noted in HPI & below Physical Exam Physical Exam: Constitutional: well developed and + morbidly obese; no acute distress Eyes: + anicteric sclerae; pupils not irregular ENMT: Mouth: oral mucous membranes not dry Neck: trachea midline thick neck, possible thyroidmegaly Respiratory: normal respiratory effort, lungs clear to auscultation Cardiovascular: Rate/Rhythm: regular rhythm and tachycardic Heart Sounds: no murmur Extremities: normal capillary refill and + pedal edema (1+ b/l equal pre-tibial); no calf tenderness Gastrointestinal (Abdomen): normal bowel sounds, soft, nontender, no hepatosplenomegaly Musculoskeletal: no cyanosis or clubbing, extremities motor strength 5/5 Skin: dry dressing noted on right foot. Callus on lateral aspect of left foot Neurologic: moves all extremities and awake; not confused Psychiatric: A+Ox3, euthymic affect Results & Data Results & Data ([facility]) Vital Signs (Past 12 Hours) Vital Signs Temp Pulse Resp BP Pulse Ox 04/25/20 20:33 94 H 145/93 H 04/25/20 15:24 36.6 C 104 H 16 135/86 99 04/25/20 11:46 37.1 C 100 H 18 165/64 H 92 PG Care Time/CCT Total # of Minutes Spent Total Time Spent with Patient: Total time spent is greater than 50% in coordination of care (as documented) at patient's floor/unit and/or counseling patient: Coding Level of Care Code 37396 Subseq Hosp Care Lvl 3 Diagnoses Diabetic foot ulcer with osteomyelitis E11.621; E11.69; L97.509; M86.9 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 Time Spent (min) 35
[2020-04-26] MEDS: ceFAZolin 2000MG 2,000 MG/15 ML SYR IV SCH ×2 (04:26→12:18)
[2020-04-26] MEDS: HEPARIN SOD 5,000 UNIT/0.5 ML VIAL SQ SCH (04:27)
[2020-04-26 07:19] LABS: Hematocrit (blood only) 31.7 % (42-52); Hemoglobin 10.1 g/dL (14.0-18.0); Mean Corpuscular Hemoglobin 27.2 pg (25-34); Mean Corpuscular Hgb Conc 31.9 g/dL (32-36); Mean Corpuscular Volume 85.4 fL (80-100); Mean Platelet Volume 10.4 fL (7.4-10.4); Platelet Count 400 K/uL (130-400); RDW Coefficient of Variation 14.3 % (11.5-14.5); RDW Standard Deviation 42.3 fL (36.4-46.3); Red Blood Count 3.71 M/uL (4.7-6.1); White Blood Count 10.03 K/uL (4.8-10.8)
[2020-04-26 07:48] LABS: BUN Creatinine Ratio 11.9 (10-20); Calcium 9.2 mg/dl (8.5-10.1); Creatinine Clr Calc Pharmacy 58.2 ml/min; Est GFR (African American) 35.3; Est GFR (Non-African American) 30.4; Potassium 4.4 mmol/L (3.5-5.1)
[2020-04-26] MEDS: INSULIN GLARGINE SOLOSTAR 100 UNITS/ML 3 ML PEN SC SCH (09:20)
[2020-04-26] MEDS: INSULIN ASPART 100 UNITS/ML 3 ML PEN SC SCH ×2 (09:21→12:17)
[2020-04-26] MEDS: amLODIPine BESYLATE 5 MG TAB PO SCH (09:21)
[2020-04-26] MEDS: buPROPion SR 150 MG TABCR PO SCH (09:22)
[2020-04-26] MEDS: MULTIVITAMIN TAB PO SCH (09:22)
[2020-04-26] MEDS: carvediloL 12.5 MG TAB PO SCH (09:22)
[2020-04-26] MEDS: CLOTRIMAZOLE 1% CR 15 GM TUBE EXT SCH (09:22)
[2020-04-26] MEDS: PREGABALIN 100 MG CAP PO SCH (09:40)
--- NOTE | 2020-05-04 10:10 | Discharge Summary ---
Date of Service April 26, 2020 Admission HPI Per Admitting Provider Lex Manzano is a 39-year-old male with uncontrolled type 2 diabetes who presents to the ER on advice of wound care clinic due to progressive diabetic ulcer between third and fourth toes with failed outpatient Bactrim. He reports having symptoms for around 2 weeks with occasional chills. Despite cellulitis of his left foot in January last year he does not check his feet regularly as he is unable to see it but has subsequently bought a mirror. He does follow with Dr. Vidya Wheatley his ceramic tile installation helper in clinic. He reports struggling to get his glucose values under control and is under endocrinology adjusting his insulin regimen. He reports compliance with taking his insulin. Today he was sent over by wound care clinic for imaging to look for an abscess/osteomyelitis plus IV antibiotics. In the ER he is currently pending MRI of his right foot. WBC 14.5. Sinus tract between toes draining but extending 2 cm per ER physician. He was started on daptomycin and cefepime due to cellulitis. He was referred to medicine for admission and ongoing management of right foot diabetic ulcer/cellulitis and acute on chronic renal failure. Principal Diagnosis diabetic foot with osteomyelitis Discharge Exam Constitutional: well developed and + morbidly obese; no acute distress Eyes: + anicteric sclerae; pupils not irregular ENMT: Mouth: oral mucous membranes not dry Neck: trachea midline thick neck, possible thyroidmegaly Respiratory: normal respiratory effort, lungs clear to auscultation Cardiovascular: Rate/Rhythm: regular rhythm and tachycardic Heart Sounds: no murmur Extremities: normal capillary refill and + pedal edema (1+ b/l equal pre-tibial); no calf tenderness Gastrointestinal (Abdomen): normal bowel sounds, soft, nontender, no hepatosplenomegaly Musculoskeletal: no cyanosis or clubbing, extremities motor strength 5/5 Skin: dry dressing noted on right foot. Callus on lateral aspect of left foot Neurologic: moves all extremities and awake; not confused Psychiatric: A+Ox3, euthymic affect Discharge Data Allergies Allergy/AdvReac Type Severity Reaction Status Date / Time amoxicillin AdvReac Mild Gastrointestinal Verified 05/02/20 08:20 Upset Consultations 04/13/20 16:17 ED Decision to Admit Stat 04/15/20 09:08 Consult Podiatry Routine 04/17/20 12:27 Consult Infectious Diseases Routine 04/20/20 08:44 Consult Nephrology Routine Ordered Studies 04/13/20 13:16 MR foot RT w/o con Stat 04/17/20 18:10 MR foot RT w/o con Routine 04/20/20 14:02 US renal/blad retro comp Routine Diabetes Follow up Diabetes Follow-up Needed for HgbA1c >9% Hospital Course (1) Diabetic foot ulcer with osteomyelitis: S/P I and D of abscess by Dr. Puri on 04/15. - Initially on dapto/cefepime however abx de-escalated to Ancef on 04/15 for cultures with staph species x 2 - Continue cefazolin x 6 weeks - Bone scan today: showed likely osteomyelitis. - will continue antibiotics cefazolin for 6-8 weeks -Will followup with outpatient thursday and have home health see patient for dressing changes. (2) Diabetic ulcer of left foot associated with type 2 diabetes mellitus, limited to breakdown of skin: * See above, OM not excluded on repeat imaging (contrast avoided with patient with CKD IV) (3) Uncontrolled type 2 diabetes mellitus: * Hemoglobin A1c 14 in January. * A1C: 13.4% * Total daily dose of insulin 165 units * Lantus 54 units twice daily * NovoLog: * Goal BSG Range: Low 110 mg/dL, High 140 mg/dL * Correction Factor: 5 mg/dL/unit * INS:CHO Ratio: 1 unit per 5 gms CHO consumed * BSGs have been acceptable * Consider addition of GLP-1 or similar for some appetite suppression as possible insulin increasing patient's hunger and still with A1c 13.4/uncontrolled * Follows with Endocrinology -- discuss starting at discharge vs follow up with Endocrine to start this therapy. He follows with Harvey Aburto and has appointment with him and PCP on Apr 24 per patient * Discussed with Dr. Aburto on 04/18 and patient has had severely poorly controlled DM2 and was on Invokana prior to seeing them recently but was too expensive. Did not was to do a SGLT2 but did not discuss GLP-1 * Will check with patients regarding medullary thyroid/etc/etc prior to starting Ozempic or similar at lowest dose and will need f/u with Endocrine (already scheduled as above) * --> Plans to start low dose Ozempic at discharge and will f/u with Dr. Aburto outpatient. * will defer with PCP. (4) UNIQUE (obstructive sleep apnea): * Patient reports awaiting home sleep study results. * would likely have additional benefit on BP with CPAP as likely with UNIQUE (5) HTN (hypertension): * Continue amlodipine 10 mg p.o. every morning, carvedilol 12.5 mg p.o. twice daily * Continue to hold lisinopril 40 mg p.o. at bedtime for elevated Cr * BP 137/80 * Continue to monitor (6) Hyperlipidemia: * Continue atorvastatin 80 mg p.o. every morning (7) Chronic kidney disease, stage IV (severe): * Not diagnostic of BJ but elevated from his baseline * Had been on continuous IVF due to Cr peaked at 3.4 on admission-- appears baseline closer to 2.4-2.8 range (possible worsening over past year given diabetes as above) * Nephrology consulted as above * Patient had f/u appt with nephrology initially and missed appointment -- will need arranged at d/c given CKD IV and not previously established - Renal US with bladder wall thickening - Started Flomax 0.4mg HS on 04/21 to help with outlet obstruction and monitor PVR/Bladder scan as needed. If continues to retain would place Patten and have patient follow up with Urology. (8) DVT prophylaxis: * PT/OT consults pending (recs for walker if d/c to home) -- they do have recommendations for rehab at discharge. We will monitor progression with off- loading shoe and continued PT/OT throughout weekend but may need to discuss rehab (he would ideally like home with home health) * Heparin SQ given decrease mobility Possible thyroidmegaly. will defer to PCP. Total Time Total Time Spent Total Time Spent (In Minutes): 35 Total Time Includes: Examination of the Patient, Discharge Planning and Medication Reconciliation Discharge Plan Discharge Items Patient Disposition: Home - Home Health Services Reason For Visit: DIABETIC ULCER, CELLULITIS, WEB SPACE ABSCESS Discharge Diagnosis: Diabetic ulcer, osteomyeltis Activity: Resume your previous activity Non-emergency contact: Primary Care Provider Call non-emergency contact if: you have any medication questions Follow-up/Referrals: Lanny Guerrier [Primary Care Provider] - 05/01/20 11:10 am (You have an appt with Lanny Guerrier on 05/01 @ 1110am. Please arrive 15 minutes prior to your appt. It is important that you keep this appt, if for any reason this appt does not fit your schedule, please call [phone] to reschedule. ) Diet: Carb Consistent or DM2 Addtl Attending Provider Instructions: You have been hospitalized for an acute medical problem. During your stay at [facility], we have made an effort to correct the problem that brought you to the hospital while keeping you as comfortable as possible. Medications were used to bring your condition under control and your discharge instructions will include directions for any medications you should take after leaving the hospital. Please make sure you see your Primary Care Provider as part of your follow up plan. Scheduled for Home Health for IV abx ANCEF and dressing changes. Scheduled for Thursday afternoon office appointment for dressing change and evaluation Discharged with Wound Vac and wound Vac supplies for outpatient therapy Pending Studies at Discharge: No Stand-Alone Forms: My [facility], Work/School Release (Inpt), Smoking Cessation Medications and DC Order Prescriptions: New tamsulosin 0.4 mg Capsule 0.4 mg PO HS Qty: 30 RF: 0 cefazolin 1 gram recon soln 2 g IV Q8H Qty: 25 RF: 0 Continued (DME) Dexcom G6 Transmitter Device See Rx Instructions .ROUTE .MEDSUPPLY Qty: 1 RF: 0 (DME) Dexcom G6 Sensor Device See Rx Instructions .ROUTE .MEDSUPPLY Qty: 3 RF: 5 (DME) Dexcom G6 Flat Drier Misc See Rx Instructions .ROUTE .MEDSUPPLY Qty: 1 RF: 5 alprazolam 1 mg tablet 1 mg PO DAILY PRN (Reason: Anxiety) RF: 0 bupropion HCl [Wellbutrin SR] 150 mg tablet sustained-release 12 hr 150 mg PO QAM RF: 0 (DME) pen needle, diabetic [BD Ultra-Fine Mini Pen Needle] 31 gauge x 3/16" needle See Rx Instructions .ROUTE .MEDSUPPLY Qty: 200 RF: 5 pregabalin [Lyrica] 100 mg capsule 100 mg PO BID RF: 0 (DME) Accu-Chek Guide test strips Strip See Rx Instructions .ROUTE .MEDSUPPLY Qty: 10 RF: 0 (DME) lancets [Accu-Chek Softclix Lancets] Misc See Rx Instructions .ROUTE .MEDSUPPLY Qty: 100 RF: 0 atorvastatin 80 mg tablet 80 mg PO QAM RF: 0 amlodipine 10 mg tablet 10 mg PO QAM RF: 0 multivitamin Tablet 1 tab PO QAM RF: 0 lisinopril 40 mg tablet 40 mg PO HS RF: 0 carvedilol 6.25 mg tablet 12.5 mg PO BID RF: 0 amitriptyline 25 mg tablet 25 mg PO HS RF: 0 insulin aspart U-100 [Novolog Flexpen U-100 Insulin] 100 unit/mL (3 mL) insulin pen 25 unit subcut TIDM RF: 0 icosapent ethyl [Vascepa] 1 gram capsule 2 g PO BID RF: 0 No Action Basaglar KwikPen U-100 Insulin 100 unit/mL (3 mL) insulin pen 50 unit SQ BID RF: 0 Ozempic 0.25 mg or 0.5 mg(2 mg/1.5 mL) pen injector 0.25 mg subcut .weekly Qty: 1.5 RF: 5 Discharge Orders: Discharge Order (Routine); Ordered 04/26/20 Ordered By: Eloy Christianson Admission Data Admit Date/Time: 04/13/20 16:39 Attending Provider: Eloy Christianson Admit Provider: Sai Middleton Primary Care Provider: Lanny Guerrier Other Providers: Eleuterio Puri ; Fannie Fonseca Other Interventions: Discharge Summary Assessment (RN) Last Done: 04/26/20 11:17 Coding Level of Care Code D/C Day Management >30 mins Diagnoses Diabetic foot ulcer with osteomyelitis E11.621; E11.69; L97.509; M86.9 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
== END 2020-04-26 12:25 | disposition home health service (06) | DRG 638 ==
LOC: ED 12:35 → 2W 16:39 → SUATTDRO 16:39 → 2W 18:09
DX: E78.5 Hyperlipidemia, unspecified; E11.621 Type 2 diabetes mellitus with foot ulcer; Z68.41 Body mass index [BMI] 40.0-44.9, adult; I12.9 Hypertensive chronic kidney disease with stage 1 through stage 4 chronic kidney disease, or unspecified chronic kidney disease; L02.612 Cutaneous abscess of left foot; E66.01 Morbid (severe) obesity due to excess calories; N25.81 Secondary hyperparathyroidism of renal origin; E83.42 Hypomagnesemia; N17.9 Acute kidney failure, unspecified; N18.4 Chronic kidney disease, stage 4 (severe); G47.33 Obstructive sleep apnea (adult) (pediatric); Z79.4 Long term (current) use of insulin; D63.1 Anemia in chronic kidney disease; E11.40 Type 2 diabetes mellitus with diabetic neuropathy, unspecified; L97.521 Non-pressure chronic ulcer of other part of left foot limited to breakdown of skin

== ENCOUNTER 2020-08-03 20:26 | Inpatient (IN) ==
[2020-08-03] MEDS ORDERED: VANCOMYCIN CONSULT ACTIVE PRN (21:05)
[2020-08-03] MEDS ORDERED: MoRPHine SULFATE 4 MG/ML 1 ML CARP\\VIAL IV STA (21:05)
[2020-08-03] MEDS ORDERED: VANCOMYCIN HCL 2,750 MG in SODIUM CHLORIDE 0.9% 500 ML IV ONE (21:05)
[2020-08-03] MEDS ORDERED: PIPERACILLIN/TAZOBACTAM 4.5 GM/120 ML BAG IV ONE (21:05)
[2020-08-03] MEDS ORDERED: ACETAMINOPHEN 1,000 MG/100 ML VIAL IV STA (21:05)
[2020-08-03] MEDS ORDERED: PIPERACILL/TAZOBAC CONSULT ACTIVE PRN (21:05)
[2020-08-03] MEDS ORDERED: SODIUM CHLORIDE 0.9% 1000ML 1,000 ML IV SCH ×3 (21:15)
[2020-08-03 21:30] LABS: Basophils # (auto) 0.03 K/uL (0-0.2); Basophils % (auto) 0.2 %; Eosinophils # (auto) 0.11 K/uL (0-0.5); Eosinophils % (auto) 0.7 %; Hematocrit (blood only) 41.6 % (42-52); Immature Granulocytes # (auto) 0.04 K/uL (0.00-0.02); Immature Granulocytes % (auto) 0.2 %; Lymphocytes % (auto) 6.6 %; Mean Corpuscular Hemoglobin 28.4 pg (25-34); Mean Corpuscular Hgb Conc 33.7 g/dL (32-36); Mean Corpuscular Volume 84.4 fL (80-100); Mean Platelet Volume 11.4 fL (7.4-10.4); Monocytes # (auto) 0.79 K/uL (0.11-0.59); Monocytes % (auto) 4.7 %; Neutrophils # (auto) 14.67 K/uL (1.4-6.5); Neutrophils % (auto) 87.6 %; Platelet Count 326 K/uL (130-400); RDW Coefficient of Variation 13.7 % (11.5-14.5); RDW Standard Deviation 41.7 fL (36.4-46.3); Red Blood Count 4.93 M/uL (4.7-6.1); White Blood Count 16.74 K/uL (4.8-10.8)
[2020-08-03 21:42] LABS: Base Excess VBG -0.3 mEq/L; HCO3 VBG 25 mmol/L; Oxygen Saturation VBG < 60.0 %; PCO2 VBG 46 mmHg (38-50); PO2 VBG 22 mmHg; pH VBG 7.36 (7.36-7.41)
[2020-08-03 21:48] LABS: Partial Thromboplastin Ratio 0.9; Partial Thromboplastin Time 24.2 Seconds (21.0-31.0); Prothrombin Time 9.7 Seconds (9.0-12.0)
--- NOTE | 2020-08-03 21:53 | XRay Report ---
LEFT FOOT 3 VIEWS CLINICAL HISTORY: Diabetic foot ulcer. FINDINGS: 3 views of the left foot are obtained. No prior studies are available for comparison at the time of dictation. The skeletal structures are osteopenic. No fracture is seen. There is no bony ero gucci or periostitis. Mild osteoarthritic change is seen at the first metatarsophalangeal joint. Mild degenerative change is also seen throughout the midfoot. There are dorsal and plantar calcaneal enthe sophytes. Mild spurring is seen along the dorsal aspect of the tarsal bones. Soft tissue edema is not ed in the forefoot. Soft tissue ulceration is suggested overlying the fifth metatarsophalangeal joint . No radiodense foreign body is identified. IMPRESSION: 1. Osteopenia and degenerative change as above with no acute bony abnormality identified. 2. Soft tissue edema is seen throughout the foot with an ulceration suggested overlying the fifth met atarsophalangeal joint. Clinical correlation will be required. Electronically signed by: Isaiah Horton M.D. 08/03/2020 9:52 PM
--- NOTE | 2020-08-03 21:54 | XRay Report ---
SINGLE VIEW CHEST CLINICAL HISTORY: Sepsis. FINDINGS: 2 AP, portable, upright chest radiographs are compared to study dated 05/24/2020. The examin ation is degraded by portable technique, apical lordotic positioning, and patient rotation. The heart is top normal for projection. The mediastinal contour is within normal limits. There is bibasilar at electasis. The lungs and pleural spaces are otherwise clear. No pneumothorax is seen. The skeletal st ructures appear osteopenic. The bony thorax is grossly intact. IMPRESSION: No active disease in the chest. ACT 112: Negative or not required by law. Electronically signed by: Isaiah Horton M.D. 08/03/2020 9:53 PM
[2020-08-03 21:55] LABS: Albumin Level 2.9 gm/dl (3.4-5.0); BUN Creatinine Ratio 13.8 (10-20); Blood Urea Nitrogen 43 mg/dl (7-18); Calcium 9.4 mg/dl (8.5-10.1); Carbon Dioxide 25 mmol/L (21-32); Chloride 106 mmol/L (98-107); Creatinine Clr Calc Pharmacy 47.1 ml/min; Est GFR (Non-African American) 24.2 ml/min; Glucose 276 mg/dl (70-99); Magnesium 1.4 mg/dl (1.8-2.4); Potassium 5.2 mmol/L (3.5-5.1); Sodium 138 mmol/L (136-145)
[2020-08-03 21:58] LABS: Alanine Aminotransferase 19 U/L (12-78); Albumin Globulin Ratio 0.5 (0.9-2); Alkaline Phosphatase 102 U/L (45-117); Aspartate Aminotransferase 17 U/L (15-37); Bilirubin Direct < 0.1 mg/dl (0-0.2); Bilirubin,Total 0.3 mg/dl (0.2-1); Globulin 5.6 gm/dl (2.5-4.0); Phosphorus 3.1 mg/dl (2.5-4.9); Total Protein 8.5 gm/dl (6.4-8.2)
[2020-08-03] MEDS ORDERED: METOPROLOL TARTRATE 1 MG/ML VIAL IV STA (23:04)
[2020-08-03] MEDS ORDERED: carvediloL 12.5 MG TAB PO ONE (23:09)
[2020-08-03] MEDS ORDERED: DAPTOmycin 650 MG in SYRINGE 0 ML IV ONE (23:34)
--- NOTE | 2020-08-03 23:37 | History & Physical Report ---
Date of Service August 03, 2020 Assessment & Plan (1) Diabetic foot ulcer associated with type 2 diabetes mellitus: Left diabetic foot ulcer/cellulitis left lower extremity- Received initial dose of vancomycin IV in ED Admit on daptomycin IV and Zosyn IV X-ray is not suggestive of osteomyelitis Consult his miter saw operator Dr. Puri Patient had similar process involving right foot, requiring admission from 04/13- 04/26/2020 Present on Admission?: Yes (2) Cellulitis of left lower extremity: See above Present on Admission?: Yes (3) SVT (supraventricular tachycardia): SVT/hypertension- The patient will be admitted to telemetry for serial cardiac enzymes, serial EKG's, cardiac rhythm monitoring and a 2-D echocardiogram with Dopplers. Patient reportedly is on amlodipine 10 mg every morning, carvedilol 6.25 mg p.o. twice daily and lisinopril 40 mg daily. I am concerned about his possible noncompliance, as he has had persistent SVT with heart rate in the 140s to 150s and systolic blood pressure 180-200/110-120. Patient was given carvedilol 12.5 mg p.o. in the ED along with Lopressor 5 mg IV x2 doses and Cardizem 10 mg IV x1 dose. Unclear patient got the volume of fluid resuscitation as indicated in ED. He was given an additional 1 L normal saline bolus by me. We will hold amitriptyline, amlodipine and lisinopril for now. Present on Admission?: Yes (4) Severe obstructive sleep apnea: CPAP at bedtime as needed Present on Admission?: Yes (5) Hypomagnesemia: Being replaced with IV, repeat laboratories in a.m. Present on Admission?: Yes (6) Chronic kidney disease, stage IV (severe): Creatinine 3.07 upon admission, with range 2.41-3.08 Follow serially as is rehydrated with IV fluids Present on Admission?: Yes (7) HTN (hypertension): See above Present on Admission?: Yes (8) Uncontrolled type 2 diabetes mellitus: Hold semaglutide. Continue insulin glargine 54 units subcu twice daily Placed in Accu-Cheks before meals and at bedtime with NovoLog coverage for scale Check hemoglobin A1c Present on Admission?: Yes (9) Mixed hyperlipidemia: Continue Lipitor 80 mg daily Present on Admission?: Yes (10) BPH loc w urin obs/LUTS: Continue tamsulosin 0.4 mg daily Present on Admission?: Yes (11) Diabetic nephropathy associated with type 2 diabetes mellitus: Continue pregabalin 100 mg p.o. twice daily Present on Admission?: Yes History of Present Illness Chief Complaint: The patient presents to the emergency department with complaint of left foot and longoria infection, at the direction of his miter saw operator Dr. Puri, after being seen in his office today, being prescribed antibiotics, but developed fevers and chills later on this evening. Primary Care Provider: Lanny Guerrier The patient is a 40-year-old male with a past medical history including hospitalization from 04/13-04/26/2020 for right foot diabetic ulcer, diabetes mellitus, severe UNIQUE, CKD stage IV, morbid obesity with BMI 48, fatty liver, kidney stones, mixed hyperlipidemia, hidradenitis suppurativa, hyperlipidemia, hypertension, diabetic retinopathy, and diabetic nephropathy. Patient's presentation for his left foot today, is similar to the presentation for his right foot earlier in the year. Allergies Allergy/AdvReac Type Severity Reaction Status Date / Time amoxicillin AdvReac Mild Gastrointestinal Verified 08/04/20 00:12 Upset Home Medications Medication Instructions Recorded Confirmed Type amlodipine 10 mg PO QAM 04/08/19 08/04/20 History atorvastatin 80 mg PO QAM 04/08/19 08/04/20 History alprazolam 1 mg tablet 1 mg PO DAILY PRN 10/14/19 08/04/20 History bupropion HCl 150 mg tablet,12 hr 150 mg PO QAM 10/14/19 08/04/20 History sustained-release pregabalin 100 mg capsule 100 mg PO BID 12/01/19 08/04/20 History lisinopril 40 mg PO HS 01/04/20 08/04/20 History multivitamin 1 tab PO QAM 01/04/20 08/04/20 History amitriptyline 25 mg PO HS 01/14/20 08/04/20 History carvedilol 6.25 mg tablet 12.5 mg PO BID tab 03/21/20 08/04/20 History insulin aspart U-100 100 unit/mL 0 unit SUBCUT TIDM ml 03/21/20 08/04/20 History (3 mL) subcutaneous pen icosapent ethyl [Vascepa] 2 g PO BID 04/13/20 08/04/20 History tamsulosin 0.4 mg PO HS #30 cap 04/26/20 08/04/20 Rx insulin glargine 100 unit/mL (3 54 unit SQ BID box 07/31/20 08/04/20 History mL) subcutaneous pen semaglutide 0.5 mg SUBCUT .weekly ml 07/31/20 08/04/20 History ibuprofen [Advil] 800 mg PO TID PRN 08/04/20 08/04/20 History Past Med/Surg History Medical History Anemia due to chronic kidney disease Chronic diarrhea reason for colonoscopy Diabetic nephropathy associated with type 2 diabetes mellitus DM neuropathy, painful DM retinopathy Habitual snoring never had a sleep study test done Hidradenitis suppurativa HTN (hypertension) Hyperlipidemia Kidney stones Morbid obesity with BMI of 45.0-49.9, adult Obesity Proteinuria Uncontrolled type 2 diabetes mellitus Surgical History History of cardiac cath 2014 ?? 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 History of eye surgery left eye multiple before eye removal History of tooth extraction History of wisdom tooth extraction Status post epidural steroid injection Family History Mother No problems noted. 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: No Beliefs That Will Affect Care: None marital status: Current Living Situation: Spouse Current Living Situation Comment: Lives with spouse current occupational status: employed Other Information That Helps Us Care for You: No Feels Safe at Home: Yes Safety Concerns: Feels Safe At This Time Assistive Devices: Glasses Assistive Devices Comment: prosthetic left eye Review of Systems Review of Systems: The patient denies chest pain, palpitations, shortness of breath, dyspnea on exertion, cough, sore throat, fevers, chills, sweats, weight change, fatigue, nausea, vomiting, diarrhea , constipation, abdominal pain, pelvic pain, blood in urine or stool, dysuria, urinary frequency or urgency, lightheadedness, dizziness, headache, memory loss, loss of consciousness, abnormal bruising or bleeding, imbalance, focal or generalized weakness, numbness or tingling in arms, generalized arthralgias or myalgias, back or neck pain, or night sweats. The review of systems is otherwise negative other than for that already noted above, and at least 10 systems have been reviewed. Physical Exam Physical Exam: The patient is awake, alert and oriented 3, well developed and well nourished, normocephalic and atraumatic, lying in bed and in no acute distress. HEENT--PERRL, EOMI, mucous membranes and oropharynx dry. Neck--supple. No JVD. No bruits. Thyroid normal, trachea midline, no adenopathy. Heart--tachycardic and regular. No murmurs, rubs or gallops. Lungs--clear bilaterally, no respiratory distress, no accessory muscle use. Abdomen--normal bowel sounds and soft. Nontender. Nondistended. Morbidly obese Extremities-- 2+ bilateral pretibial pitting edema. Base of left fifth MTP and great toe ulcer. Left longoria with moderately severe cellulitis, erythema, warmth and pain Dermatologic--see above Neurologic--cranial nerves II through XII grossly intact. Rheumatologic--normal range of motion except for left lower extremity Psychiatric--normal affect. Results & Data Results & Data ([facility]) Vital Signs (Past 12 Hours) Vital Signs Temp Pulse Pulse Resp BP BP Pulse Ox 08/03/20 22:00 144 H 16 200/107 H 92 08/03/20 21:49 146 H 23 212/115 H 93 08/03/20 21:36 102.9 F H 148 H 20 200/107 H 92 08/03/20 21:30 144 H 31 H 08/03/20 21:22 146 H 23 08/03/20 20:37 99.1 F 128 H 20 144/93 H 92 Laboratory Results Laboratory Results WBC 16.74 K/uL (4.8-10.8) H 08/03/20 21:16 RBC 4.93 M/uL (4.7-6.1) 08/03/20 21:16 Hgb 14.0 g/dL (14.0-18.0) 08/03/20 21:16 Hct 41.6 % (42-52) L 08/03/20 21:16 MCV 84.4 fL (80-100) 08/03/20 21:16 MCH 28.4 pg (25-34) 08/03/20 21:16 MCHC 33.7 g/dL (32-36) 08/03/20 21:16 RDW Std Deviation 41.7 fL (36.4-46.3) 08/03/20 21:16 RDW Coeff of Nicky 13.7 % (11.5-14.5) 08/03/20 21:16 Plt Count 326 K/uL (130-400) 08/03/20 21:16 MPV 11.4 fL (7.4-10.4) H 08/03/20 21:16 Immature Gran % (Auto) 0.2 % 08/03/20 21:16 Neut % (Auto) 87.6 % 08/03/20 21:16 Lymph % (Auto) 6.6 % 08/03/20 21:16 Bowman % (Auto) 4.7 % 08/03/20 21:16 Eos % (Auto) 0.7 % 08/03/20 21:16 Baso % (Auto) 0.2 % 08/03/20 21:16 Neut # (Auto) 14.67 K/uL (1.4-6.5) H 08/03/20 21:16 Lymph # (Auto) 1.10 K/uL (1.2-3.4) L 08/03/20 21:16 Bowman # (Auto) 0.79 K/uL (0.11-0.59) H 08/03/20 21:16 Eos # (Auto) 0.11 K/uL (0-0.5) 08/03/20 21:16 Baso # (Auto) 0.03 K/uL (0-0.2) 08/03/20 21:16 Immature Gran # (Auto) 0.04 K/uL (0.00-0.02) H 08/03/20 21:16 ESR 47 mm/hr (0-15) H 08/03/20 21:15 PT 9.7 Seconds (9.0-12.0) 08/03/20 21:16 INR 1.0 (0.9-1.1) 08/03/20 21:16 APTT 24.2 Seconds (21.0-31.0) 08/03/20 21:16 PTT Ratio 0.9 08/03/20 21:16 VBG pH 7.36 (7.36-7.41) 08/03/20 21:16 VBG pCO2 46 mmHg (38-50) 08/03/20 21:16 VBG pO2 22 mmHg 08/03/20 21:16 VBG HCO3 25 mmol/L 08/03/20 21:16 VBG O2 Saturation < 60.0 % 08/03/20 21:16 VBG Base Excess -0.3 mEq/L 08/03/20 21:16 Barometric Pressure 728.2 mm/Hg 08/03/20 21:16 Sodium 138 mmol/L (136-145) 08/03/20 21:16 Potassium 5.2 mmol/L (3.5-5.1) H 08/03/20 21:16 Chloride 106 mmol/L (98-107) 08/03/20 21:16 Carbon Dioxide 25 mmol/L (21-32) 08/03/20 21:16 Anion Gap 7.0 (3-11) 08/03/20 21:16 BUN 43 mg/dl (7-18) H 08/03/20 21:16 Creatinine 3.07 mg/dl (0.6-1.4) H 08/03/20 21:16 Est Cr Clr Drug Dosing 47.1 ml/min 08/03/20 21:16 Est GFR ( Amer) 28.0 ml/min 08/03/20 21:16 Est GFR (Non-Af Amer) 24.2 ml/min 08/03/20 21:16 BUN/Creatinine Ratio 13.8 (10-20) 08/03/20 21:16 Glucose 276 mg/dl (70-99) H 08/03/20 21:16 POC Glucose 251 mg/dl (70-99) H 08/04/20 02:41 Lactate 3.5 mmol/L (0.4-2.0) H* 08/03/20 23:55 Calcium 9.4 mg/dl (8.5-10.1) 08/03/20 21:16 Phosphorus 3.1 mg/dl (2.5-4.9) 08/03/20 21:16 Magnesium 1.4 mg/dl (1.8-2.4) L 08/03/20 21:16 Total Bilirubin 0.3 mg/dl (0.2-1) 08/03/20 21:16 Direct Bilirubin < 0.1 mg/dl (0-0.2) 08/03/20 21:16 AST 17 U/L (15-37) 08/03/20 21:16 ALT 19 U/L (12-78) 08/03/20 21:16 Alkaline Phosphatase 102 U/L (45-117) 08/03/20 21:16 C-Reactive Protein 1.40 mg/dl (0-0.29) H 08/03/20 21:16 Total Protein 8.5 gm/dl (6.4-8.2) H 08/03/20 21:16 Albumin 2.9 gm/dl (3.4-5.0) L 08/03/20 21:16 Globulin 5.6 gm/dl (2.5-4.0) H 08/03/20 21:16 Albumin/Globulin Ratio 0.5 (0.9-2) L 08/03/20 21:16 Procalcitonin 0.08 ng/ml (0-0.5) 08/03/20 21:16 Urine Color Yellow 08/03/20 23:52 Urine Appearance Clear (Clear) 08/03/20 23:52 Urine pH 6.0 (4.5-7.5) 08/03/20 23:52 Ur Specific [place] 1.017 (1.000-1.030) 08/03/20 23:52 Urine Protein 3+ (Negative) H 08/03/20 23:52 Urine Glucose (UA) 2+ (Negative) H 08/03/20 23:52 Urine Ketones Negative (Negative) 08/03/20 23:52 Urine Blood 1+ (Negative) H 08/03/20 23:52 Urine Nitrite Negative (Negative) 08/03/20 23:52 Urine Bilirubin Negative (Negative) 08/03/20 23:52 Urine Urobilinogen Negative (Negative) 08/03/20 23:52 Ur Leukocyte Esterase Negative (Negative) 08/03/20 23:52 Urine WBC (Auto) 1-5 /hpf (0-5) 08/03/20 23:52 Urine RBC (Auto) 0-4 /hpf (0-4) 08/03/20 23:52 U Hyaline Cast (Auto) 1-5 /lpf (0-5) 08/03/20 23:52 U Epithel Cells (Auto) 5-10 /lpf (0-5) H 08/03/20 23:52 Urine Bacteria (Auto) Negative (Negative) 08/03/20 23:52 COVID-19 Eval Order Covid19 at [facility] 08/03/20 21:27 SARS-CoV-2 (PCR) NEGATIVE (Negative) 08/03/20 21:27 Impressions Foot X-Ray 08/03/20 21:05 LEFT FOOT 3 VIEWS CLINICAL HISTORY: Diabetic foot ulcer. FINDINGS: 3 views of the left foot are obtained. No prior studies are available for comparison at the time of dictation. The skeletal structures are osteopenic. No fracture is seen. There is no bony erosion or periostitis. Mild osteoarthritic change is seen at the first metatarsophalangeal joint. Mild degenerative change is also seen throughout the midfoot. There are dorsal and plantar calcaneal enthesophytes. Mild spurring is seen along the dorsal aspect of the tarsal bones. Soft tissue edema is noted in the forefoot. Soft tissue ul ceration is suggested overlying the fifth metatarsophalangeal joint. No radiodense foreign body is identified. IMPRESSION: 1. Osteopenia and degenerative change as above with no acute bony abnormality identified. 2. Soft tissue edema is seen throughout the foot with an ulceration suggested overlying the fifth metatarsophalangeal joint. Clinical correlation will be required. Electronically signed by: Isaiah Horton M.D. 08/03/2020 9:52 PM Chest X-Ray 08/03/20 21:06 SINGLE VIEW CHEST CLINICAL HISTORY: Sepsis. FINDINGS: 2 AP, portable, upright chest radiographs are compared to study dated 05/24/2020. The examination is degraded by portable technique, apical lordotic positioning, and patient rotation. The heart is top normal for projection. The mediastinal contour is within normal limits. There is bibasilar atelectasis. The lungs and pleural spaces are otherwise clear. No pneumothorax is seen. The skeletal structures appear osteopenic. The bony thorax is grossly intact. IMPRESSION: No active disease in the chest. ACT 112: Negative or not required by law. Electronically signed by: Isaiah Horton M.D. 08/03/2020 9:53 PM Code Status & VTE Plan Code Status Full code VTE Prophylaxis Plan VTE Prophylaxis will be ordered: Yes PG Care Time/CCT Total # of Minutes Spent Total Time Spent with Patient: Total time spent is greater than 50% in coordination of care (as documented) at patient's floor/unit and/or counseling patient: Coding Level of Care Code 26268 Initial Inpt Care Lvl 3 Diagnoses Diabetic foot ulcer associated with type 2 diabetes mellitus E11.621; L97.529 Diabetic foot ulcer location: toe Laterality: left Non-pressure ulcer stage: unspecified non-pressure ulcer stage Cellulitis of left lower extremity L03.116 SVT (supraventricular tachycardia) I47.1 Severe obstructive sleep apnea G47.33 Hypomagnesemia E83.42 Chronic kidney disease, stage IV (severe) N18.4 HTN (hypertension) I10 Uncontrolled type 2 diabetes mellitus E11.65 Mixed hyperlipidemia E78.2 BPH loc w urin obs/LUTS N40.1 Diabetic nephropathy associated with type 2 diabetes mellitus E11.21 (1) Diabetic foot ulcer associated with type 2 diabetes mellitus Diabetic foot ulcer location: toe Laterality: left Non-pressure ulcer stage: unspecified non-pressure ulcer stage Qualified Code(s): E11.621 - Type 2 diabetes mellitus with foot ulcer; L97.529 - Non-pressure chronic ulcer of other part of left foot with unspecified severity
--- NOTE | 2020-08-03 23:44 | Emergency Department Note ---
Impression & Plan Sepsis, Diabetic foot ulcer associated with type 2 diabetes mellitus, Cellulitis of left foot, Hypomagnesemia ED Provider Note NAME: MAU LEMONS AGE: 40 SEX: M ARRIVES VIA: Walk-In INFORMANT: Patient, ED PROVIDER(S): Kirt Larsen MD CHIEF COMPLAINT: Fevers, Foot ulcer/cellulitis. PLAN: Disposition: Admit MEDICAL DECISION MAKING: The patient is a pleasant 40-year-old gentleman with a past medical history of uncontrolled diabetes, UNIQUE, hypertension, hyperlipidemia, CKD, history of right foot diabetic foot ulcer with osteomyelitis admitted in April 2020 treated with I&D and antibiotics who presents to the emergency department with fevers, chills and body aches in the setting of having a evolving cellulitis related to a left foot diabetic foot ulcer at the base of his fifth phalanx seen by his machine hoop maker helper, Dr. Puri, earlier today and prescribed antibiotics but later developed fevers and chills later this evening and now presents to emergency department per instructions of his machine hoop maker helper. Patient is vague on the details of the evolution of the redness of his foot but feels as though this may have occurred over the past several days but they report they have been watching it closely for the past several weeks. He did have some nausea earlier but this has resolved. Otherwise she denies any recent cough, congestion, chest pain, shortness of breath, diarrhea or urinary symptoms. He denies any known COVID-19 exposures. On arrival the patient is ill-appearing, febrile to 39.4 with heart rate in the 140s and blood pressure 200s/100s in the setting of his fever and pain related to his left foot cellulitis. On exam the patient has erythema warmth and mild tenderness on the lateral dorsal aspect left foot adjacent to approximate 1.5 cm diabetic foot ulcer at the base of the fifth phalanx. There is no crepitus. There is mild redness/discoloration of the left pretibial region but the patient feels as though this may be chronic. He appears clinically dry. EKG demonstrates sinus tachycardia at [address] and T wave abnormalities but no overt ST elevation or depression. Chest x-ray negative for acute cardiopulmonary process. Plain film of the left foot shows osteopenia and degenerative change but no overt acute bony abnormality. Note is made of patient's cellulitis/soft tissue edema associated with foot ulceration overlying the fifth metatarsal phalangeal joint. WBC 16.7K. Hemoglobin and platelets within normal limits. ESR and CRP are elevated at 47 and 1.4, respectively. Chemistry without metabolic acidosis. Creatinine 3 similar to prior range of values in the setting of CKD. Lactate 2.2 slightly elevated and procalcitonin without significant elevation. Magnesium 1.4 with repletion initiated. Electrolytes otherwise unremarkable. COVID-19 PCR was negative. Patient was ordered for empiric broad-spectrum antibiotics upon arrival with Zosyn and vancomycin in addition to IV fluid hydration for presumed sepsis. Patient's condition was discussed with the patient and his at the bedside and they were in agreement with plan for admission for IV antibiotics and further management. Case was discussed with Dr. Butts, [facility] hospitalist, who will evaluate the patient for admission. Triage Nursing notes reviewed and agree them. Prior medical records reviewed Vital Signs: reviewed and remarkable for fever, tachycardia. Differential diagnosis: Cellulitis, abscess, MRSA infection, DVT, necrotizing fasciitis, dermatitis, drug eruption, allergic reaction, as well as other pathologies. ER treatment provided: See below. Diagnostics interpreted by me: ECG: Sinus tachycardia, 144 bpm, no ectopy, ST and T wave abnormality, no overt ST elevation or depression. QTC 4 5, QRS 108. Morphology similar to prior EKG. Cardiac Monitoring: An order for continuous cardiac monitoring was placed and demonstrated Sinus tachycardia, 144 bpm, no ectopy. Laboratory studies: See below Imaging studies: See below Consultation(s): [facility], who will evaluate the patient for admission. HPI: The patient is a pleasant 40-year-old gentleman with a past medical history of uncontrolled diabetes, UNIQUE, hypertension, hyperlipidemia, CKD, history of right foot diabetic foot ulcer with osteomyelitis admitted in April 2020 treated with I&D and antibiotics who presents to the emergency department with fevers, chills and body aches in the setting of having a evolving cellulitis related to a left foot diabetic foot ulcer at the base of his fifth phalanx seen by his machine hoop maker helper, Dr. Puri, earlier today and prescribed antibiotics but later developed fevers and chills later this evening and now presents to emergency department per instructions of his machine hoop maker helper. Patient is vague on the details of the evolution of the redness of his foot but feels as though this may have occurred over the past several days but they report they have been raquel breanna it closely for the past several weeks. He did have some nausea earlier but this has resolved. Otherwise she denies any recent cough, congestion, chest pain, shortness of breath, diarrhea or urinary symptoms. He denies any known COVID-19 exposures. ROS: See above HPI for pertinent positives & negatives. A total of 10 systems reviewed and were otherwise negative. PAST MEDICAL HISTORY:See Below PAST SURGICAL HISTORY:See Below FAMILY HISTORY:See Below SOCIAL HISTORY:See Below HOME MEDICATIONS:See Below ALLERGIES:See Below VITALS:See Below PHYSICAL EXAMINATION: GENERAL: Awake, alert, ill-appearing, in no distress HENT: Normocephalic, atraumatic. Oropharynx with dry mucous membranes and otherwise unremarkable. EYES: Normal conjunctiva. Sclera non-icteric. NECK: Supple. No nuchal rigidity. FROM. No JVD. RESPIRATORY: Clear to auscultation. CARDIAC: Tachycardic rate, normal rhythm. Extremities warm and well perfused. Pulses equal. ABDOMEN: Soft, non-distended. No tenderness to palpation. No rebound or guarding. No masses. RECTAL: Deferred. MUSCULOSKELETAL: Chest examination reveals no tenderness. The back is symmetrical on inspection without obvious abnormality. There is no CVA tenderness to palpation. No joint edema. LOWER EXTREMITIES: Calves are equal size bilaterally and non-tender. Erythema, warmth and mild tenderness and edema on the lateral dorsal aspect left foot adjacent to approximate 1.5 cm diabetic foot ulcer at the base of the fifth phalanx. There is no crepitus. There is mild redness/discoloration of the left pretibial region but the patient feels as though this may be chronic. NEURO: Normal sensorium. No sensory or motor deficits noted. SKIN: No rash or jaundice noted. ED COURSE: Critical Care: I have personally spent greater than 45 minutes of critical care time in the direct management of this patient. This includes bedside care, interpretation of diagnostic studies, and testing, discussion with consultants, patient, and family members, and other required patient management activities. This 45 minutes is in excess of all separately billable procedures. Kirt Larsen MD Past Med/Surg History Medical History Anemia due to chronic kidney disease Chronic diarrhea reason for colonoscopy Diabetic nephropathy associated with type 2 diabetes mellitus DM neuropathy, painful DM retinopathy Habitual snoring never had a sleep study test done Hidradenitis suppurativa HTN (hypertension) Hyperlipidemia Kidney stones Morbid obesity with BMI of 45.0-49.9, adult Obesity Proteinuria Uncontrolled type 2 diabetes mellitus Surgical History History of cardiac cath 2014 ?? 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 History of eye surgery left eye multiple before eye removal History of tooth extraction History of wisdom tooth extraction Status post epidural steroid injection Family History Mother No problems noted. Father , Age 60, [place] Myocardial infarction Unknown Charcot-Ana disease Neuropathy Brother Family history of diabetes mellitus Other No family history of adverse response to anesthesia No significant family history Social History Smoking Status: Never smoker Second Hand Exposure: No; Hx Alcohol Use: No Hx Substance Use: Yes Last Used Substance: Days (ago) Substance Use Type Other:: edibles for neuropathy Preferred Language: Nigerien Communication Ability: Effective Playground Equipment Erector Required: No Beliefs That Will Affect Care: None marital status: Current Living Situation: Spouse Current Living Situation Comment: Lives with spouse current occupational status: employed Other Information That Helps Us Care for You: No Feels Safe at Home: Yes Safety Concerns: Feels Safe At This Time Assistive Devices: Glasses Assistive Devices Comment: prosthetic left eye Allergies Allergies Allergy/AdvReac Type Severity Reaction Status Date / Time amoxicillin AdvReac Mild Gastrointestinal Verified 08/04/20 00:12 Upset Home Meds Home Medications Medication Instructions Recorded Confirmed amlodipine 10 mg PO QAM 04/08/19 08/04/20 atorvastatin 80 mg PO QAM 04/08/19 08/04/20 alprazolam 1 mg tablet 1 mg PO DAILY PRN 10/14/19 08/04/20 bupropion HCl 150 mg tablet,12 hr 150 mg PO QAM 10/14/19 08/04/20 sustained-release pregabalin 100 mg capsule 100 mg PO BID 12/01/19 08/04/20 lisinopril 40 mg PO HS 01/04/20 08/04/20 multivitamin 1 tab PO QAM 01/04/20 08/04/20 amitriptyline 25 mg PO HS 01/14/20 08/04/20 carvedilol 6.25 mg tablet 12.5 mg PO BID tab 03/21/20 08/04/20 insulin aspart U-100 100 unit/mL 0 unit SUBCUT TIDM ml 03/21/20 08/04/20 (3 mL) subcutaneous pen icosapent ethyl [Vascepa] 2 g PO BID 04/13/20 08/04/20 insulin glargine 100 unit/mL (3 54 unit SQ BID box 07/31/20 08/04/20 mL) subcutaneous pen semaglutide 0.5 mg SUBCUT .weekly ml 07/31/20 08/04/20 ibuprofen [Advil] 800 mg PO TID PRN 08/04/20 08/04/20 Previous Rx's Medication Instructions Recorded tamsulosin 0.4 mg PO HS #30 cap 04/26/20 Results & Data (ED) Vital Signs Vital Signs - 24 hr 08/03/20 20:37 08/03/20 21:22 08/03/20 21:30 Temperature 37.3 C Temperature Source Temporal Artery Scan Pulse Rate 128 H 146 H 144 H Pulse Rate [Apical] Pulse Rate from SpO2 Sensor Pulse Rhythm Pulse Rhythm [Apical] Pulse Strength [Apical] Respiratory Rate 20 23 31 H Respiratory Effort / Characteristics Respiratory Depth Blood Pressure 144/93 H Blood Pressure [Left Arm] Blood Pressure Mean 110 Blood Pressure Mean [Left Arm] Blood Pressure Position Sitting Blood Pressure Position [Left Arm] Pulse Oximetry 92 Oxygen Delivery Method Room Air Sepsis Recent Fever Within 48 Hours No Sepsis New/Unexplained Change in Mental Status No Sepsis Action Taken by Nursing No Action Required 08/03/20 21:36 08/03/20 21:49 08/03/20 22:00 Temperature 39.4 C H Temperature Source Oral Pulse Rate 146 H 144 H Pulse Rate [Apical] 148 H Pulse Rate from SpO2 Sensor 144 H 145 H Pulse Rhythm Pulse Rhythm [Apical] Regular Pulse Strength [Apical] Normal Respiratory Rate 20 23 16 Respiratory Effort / Characteristics Non-Labored Spontaneous Respiratory Depth Normal Blood Pressure 212/115 H 200/107 H Blood Pressure [Left Arm] 200/107 H Blood Pressure Mean 147 138 Blood Pressure Mean [Left Arm] 138 Blood Pressure Position Blood Pressure Position [Left Arm] Semi-fowlers Pulse Oximetry 92 93 92 Oxygen Delivery Method Room Air Sepsis Recent Fever Within 48 Hours Sepsis New/Unexplained Change in Mental Status Sepsis Action Taken by Nursing 08/03/20 23:00 08/03/20 23:13 08/03/20 23:15 Temperature Temperature Source Pulse Rate 158 H 152 H 152 H Pulse Rate [Apical] Pulse Rate from SpO2 Sensor 157 H 152 H 153 H Pulse Rhythm Regular Pulse Rhythm [Apical] Pulse Strength [Apical] Respiratory Rate 32 H 18 33 H Respiratory Effort / Characteristics Respiratory Depth Blood Pressure 134/92 212/111 H 193/117 H Blood Pressure [Left Arm] Blood Pressure Mean 106 144 142 Blood Pressure Mean [Left Arm] Blood Pressure Position Blood Pressure Position [Left Arm] Pulse Oximetry 99 92 94 Oxygen Delivery Method Room Air Room Air Room Air Sepsis Recent Fever Within 48 Hours Sepsis New/Unexplained Change in Mental Status Sepsis Action Taken by Nursing 08/03/20 23:30 Temperature Temperature Source Pulse Rate 157 H Pulse Rate [Apical] Pulse Rate from SpO2 Sensor 157 H Pulse Rhythm Pulse Rhythm [Apical] Pulse Strength [Apical] Respiratory Rate 27 H Respiratory Effort / Characteristics Respiratory Depth Blood Pressure 212/134 H Blood Pressure [Left Arm] Blood Pressure Mean 160 Blood Pressure Mean [Left Arm] Blood Pressure Position Blood Pressure Position [Left Arm] Pulse Oximetry 93 Oxygen Delivery Method Room Air Sepsis Recent Fever Within 48 Hours Sepsis New/Unexplained Change in Mental Status Sepsis Action Taken by Nursing Laboratory Data Attestation: I reviewed the patient's lab results. Result diagrams: 08/03/20 21:16 08/03/20 21:16 Lab Results 08/03/20 08/03/20 08/03/20 Range/Units 21:15 21:16 21:16 WBC 16.74 H (4.8-10.8) K/uL RBC 4.93 (4.7-6.1) M/uL Hgb 14.0 (14.0-18.0) g/dL Hct 41.6 L (42-52) % MCV 84.4 (80-100) fL MCH 28.4 (25-34) pg MCHC 33.7 (32-36) g/dL RDW Std Deviation 41.7 (36.4-46.3) fL RDW Coeff of Nicky 13.7 (11.5-14.5) % Plt Count 326 (130-400) K/uL MPV 11.4 H (7.4-10.4) fL Immature Gran % (Auto) 0.2 % Neut % (Auto) 87.6 % Lymph % (Auto) 6.6 % Fergus % (Auto) 4.7 % Eos % (Auto) 0.7 % Baso % (Auto) 0.2 % Neut # (Auto) 14.67 H (1.4-6.5) K/uL Lymph # (Auto) 1.10 L (1.2-3.4) K/uL Fergus # (Auto) 0.79 H (0.11-0.59) K/uL Eos # (Auto) 0.11 (0-0.5) K/uL Baso # (Auto) 0.03 (0-0.2) K/uL Immature Gran # (Auto) 0.04 H (0.00-0.02) K/uL ESR 47 H (0-15) mm/hr PT (9.0-12.0) Seconds INR (0.9-1.1) APTT (21.0-31.0) Seconds PTT Ratio VBG pH (7.36-7.41) VBG pCO2 (38-50) mmHg VBG pO2 mmHg VBG HCO3 mmol/L VBG O2 Saturation % VBG Base Excess mEq/L Barometric Pressure mm/Hg Sodium (136-145) mmol/L Potassium (3.5-5.1) mmol/L Chloride (98-107) mmol/L Carbon Dioxide (21-32) mmol/L Anion Gap (3-11) BUN (7-18) mg/dl Creatinine (0.6-1.4) mg/dl Est Cr Clr Drug Dosing ml/min Est GFR ( Amer) ml/min Est GFR (Non-Af Amer) ml/min BUN/Creatinine Ratio (10-20) Glucose (70-99) mg/dl Lactate (0.4-2.0) mmol/L Calcium (8.5-10.1) mg/dl Phosphorus (2.5-4.9) mg/dl Magnesium (1.8-2.4) mg/dl Total Bilirubin (0.2-1) mg/dl Direct Bilirubin (0-0.2) mg/dl AST (15-37) U/L ALT (12-78) U/L Alkaline Phosphatase (45-117) U/L C-Reactive Protein (0-0.29) mg/dl Total Protein (6.4-8.2) gm/dl Albumin (3.4-5.0) gm/dl Globulin (2.5-4.0) gm/dl Albumin/Globulin Ratio (0.9-2) Procalcitonin 0.08 (0-0.5) ng/ml COVID-19 Eval Order SARS-CoV-2 (PCR) (Negative) 08/03/20 08/03/20 08/03/20 Range/Units 21:16 21:16 21:16 WBC (4.8-10.8) K/uL RBC (4.7-6.1) M/uL Hgb (14.0-18.0) g/dL Hct (42-52) % MCV (80-100) fL MCH (25-34) pg MCHC (32-36) g/dL RDW Std Deviation (36.4-46.3) fL RDW Coeff of Nicky (11.5-14.5) % Plt Count (130-400) K/uL MPV (7.4-10.4) fL Immature Gran % (Auto) % Neut % (Auto) % Lymph % (Auto) % Fergus % (Auto) % Eos % (Auto) % Baso % (Auto) % Neut # (Auto) (1.4-6.5) K/uL Lymph # (Auto) (1.2-3.4) K/uL Fergus # (Auto) (0.11-0.59) K/uL Eos # (Auto) (0-0.5) K/uL Baso # (Auto) (0-0.2) K/uL Immature Gran # (Auto) (0.00-0.02) K/uL ESR (0-15) mm/hr PT 9.7 (9.0-12.0) Seconds INR 1.0 (0.9-1.1) APTT 24.2 (21.0-31.0) Seconds PTT Ratio 0.9 VBG pH (7.36-7.41) VBG pCO2 (38-50) mmHg VBG pO2 mmHg VBG HCO3 mmol/L VBG O2 Saturation % VBG Base Excess mEq/L Barometric Pressure mm/Hg Sodium 138 (136-145) mmol/L Potassium 5.2 H (3.5-5.1) mmol/L Chloride 106 (98-107) mmol/L Carbon Dioxide 25 (21-32) mmol/L Anion Gap 7.0 (3-11) BUN 43 H (7-18) mg/dl Creatinine 3.07 H (0.6-1.4) mg/dl Est Cr Clr Drug Dosing 47.1 ml/min Est GFR ( Amer) 28.0 ml/min Est GFR (Non-Af Amer) 24.2 ml/min BUN/Creatinine Ratio 13.8 (10-20) Glucose 276 H (70-99) mg/dl Lactate 2.2 H* (0.4-2.0) mmol/L Calcium 9.4 (8.5-10.1) mg/dl Phosphorus 3.1 (2.5-4.9) mg/dl Magnesium 1.4 L (1.8-2.4) mg/dl Total Bilirubin 0.3 (0.2-1) mg/dl Direct Bilirubin < 0.1 (0-0.2) mg/dl AST 17 (15-37) U/L ALT 19 (12-78) U/L Alkaline Phosphatase 102 (45-117) U/L C-Reactive Protein 1.40 H (0-0.29) mg/dl Total Protein 8.5 H (6.4-8.2) gm/dl Albumin 2.9 L (3.4-5.0) gm/dl Globulin 5.6 H (2.5-4.0) gm/dl Albumin/Globulin Ratio 0.5 L (0.9-2) Procalcitonin (0-0.5) ng/ml COVID-19 Eval Order SARS-CoV-2 (PCR) (Negative) 08/03/20 08/03/20 08/03/20 Range/Units 21:16 21:27 21:27 WBC (4.8-10.8) K/uL RBC (4.7-6.1) M/uL Hgb (14.0-18.0) g/dL Hct (42-52) % MCV (80-100) fL MCH (25-34) pg MCHC (32-36) g/dL RDW Std Deviation (36.4-46.3) fL RDW Coeff of Nicky (11.5-14.5) % Plt Count (130-400) K/uL MPV (7.4-10.4) fL Immature Gran % (Auto) % Neut % (Auto) % Lymph % (Auto) % Fergus % (Auto) % Eos % (Auto) % Baso % (Auto) % Neut # (Auto) (1.4-6.5) K/uL Lymph # (Auto) (1.2-3.4) K/uL Fergus # (Auto) (0.11-0.59) K/uL Eos # (Auto) (0-0.5) K/uL Baso # (Auto) (0-0.2) K/uL Immature Gran # (Auto) (0.00-0.02) K/uL ESR (0-15) mm/hr PT (9.0-12.0) Seconds INR (0.9-1.1) APTT (21.0-31.0) Seconds PTT Ratio VBG pH 7.36 (7.36-7.41) VBG pCO2 46 (38-50) mmHg VBG pO2 22 mmHg VBG HCO3 25 mmol/L VBG O2 Saturation < 60.0 % VBG Base Excess -0.3 mEq/L Barometric Pressure 728.2 mm/Hg Sodium (136-145) mmol/L Potassium (3.5-5.1) mmol/L Chloride (98-107) mmol/L Carbon Dioxide (21-32) mmol/L Anion Gap (3-11) BUN (7-18) mg/dl Creatinine (0.6-1.4) mg/dl Est Cr Clr Drug Dosing ml/min Est GFR ( Amer) ml/min Est GFR (Non-Af Amer) ml/min BUN/Creatinine Ratio (10-20) Glucose (70-99) mg/dl Lactate (0.4-2.0) mmol/L Calcium (8.5-10.1) mg/dl Phosphorus (2.5-4.9) mg/dl Magnesium (1.8-2.4) mg/dl Total Bilirubin (0.2-1) mg/dl Direct Bilirubin (0-0.2) mg/dl AST (15-37) U/L ALT (12-78) U/L Alkaline Phosphatase (45-117) U/L C-Reactive Protein (0-0.29) mg/dl Total Protein (6.4-8.2) gm/dl Albumin (3.4-5.0) gm/dl Globulin (2.5-4.0) gm/dl Albumin/Globulin Ratio (0.9-2) Procalcitonin (0-0.5) ng/ml COVID-19 Eval Order Covid19 at [facility] SARS-CoV-2 (PCR) NEGATIVE (Negative) Administered Medications Pregabalin (Pregabalin 100 Mg Cap) 100 mg PO BID MELISSA Stop: 09/03/20 02:35 Last Admin: 08/04/20 03:13 Dose: 100 mg Documented by: [id number] Discontinued Medications Acetaminophen (Acetaminophen 325 Mg Tab) 650 mg PO TODAY@0200 ONE Stop: 08/04/20 02:01 Last Admin: 08/04/20 02:14 Dose: 650 mg Documented by: [id number] Carvedilol (Carvedilol 12.5 Mg Tab) 12.5 mg PO NOW ONE Stop: 08/03/20 23:10 Last Admin: 08/03/20 23:37 Dose: 12.5 mg Documented by: [id number] Diltiazem HCl (Diltiazem Hcl 5 Mg/Ml 5 Ml Vial) 10 mg IV NOW STA Stop: 08/04/20 00:06 Last Admin: 08/04/20 00:10 Dose: 10 mg Documented by: [id number] Cosigned by: [id number] Hydromorphone HCl (Hydromorphone Inj 0.5 Mg/0.5 Ml Syr) 0.5 mg IV NOW STA Stop: 08/04/20 01:34 Last Admin: 08/04/20 01:54 Dose: 0.5 mg Documented by: [id number] Sodium Chloride (Nss 1000ml) 1,000 mls @ 999 mls/hr IV .Q1H1M MELISSA Stop: 08/03/20 22:15 Last Admin: 08/03/20 21:30 Dose: 999 mls/hr Documented by: [id number] Sodium Chloride (Nss 1000ml) 1,000 mls @ 999 mls/hr IV .Q1H1M MELISSA Stop: 08/03/20 22:07 Last Infusion: 08/03/20 23:05 Dose: 0 mls/hr Documented by: [id number] Admin: 08/03/20 21:30 Dose: 999 mls/hr Documented by: [id number] Sodium Chloride (Nss 1000ml) 1,000 mls @ 999 mls/hr IV .Q1H1M MELISSA Stop: 08/03/20 22:07 Last Admin: 08/03/20 21:31 Dose: 999 mls/hr Documented by: [id number] Acetaminophen (Ofirmev) 1,000 mg in 100 mls @ 400 mls/hr IV NOW STA Stop: 08/03/20 21:19 Last Infusion: 08/03/20 23:51 Dose: 0 mls/hr Documented by: [id number] Admin: 08/03/20 21:31 Dose: 400 mls/hr Documented by: [id number] Piperacillin Sod/Tazobactam Sod (Zosyn) 4.5 gm in 120 mls @ 240 mls/hr IV NOW ONE Stop: 08/03/20 21:34 Last Infusion: 08/04/20 00:15 Dose: 0 mls/hr Documented by: [id number] Admin: 08/03/20 21:31 Dose: 240 mls/hr Documented by: [id number] Vancomycin HCl 2,750 mg/ (Sodium Chloride) 555 mls @ 200 mls/hr IV NOW ONE Stop: 08/03/20 23:51 Last Infusion: 08/03/20 23:05 Dose: 0 mls/hr Documented by: [id number] Admin: 08/03/20 22:38 Dose: 200 mls/hr Documented by: [id number] Magnesium Sulfate/Dextrose (Magnesium Sulfate / D5w) 1 gm in 100 mls @ 100 mls/hr IV Q1H MELISSA Stop: 08/04/20 00:26 Last Admin: 08/04/20 01:02 Dose: 100 mls/hr Documented by: [id number] Infusion: 08/04/20 01:02 Dose: 100 mls/hr Documented by: [id number] Admin: 08/04/20 00:10 Dose: 100 mls/hr Documented by: [id number] Daptomycin 650 mg/ Syringe 13 mls @ 6.5 mls/min IV NOW ONE; Protocol Stop: 08/03/20 23:35 Last Admin: 08/03/20 23:46 Dose: 6.5 mls/min Documented by: [id number] Sodium Chloride (Nss 1000ml) 1,000 mls @ 999 mls/hr IV .Q1H1M MELISSA Stop: 08/04/20 02:35 Last Admin: 08/04/20 01:54 Dose: 999 mls/hr Documented by: [id number] Metoprolol Tartrate (Metoprolol Tartrate 1 Mg/Ml Vial) 5 mg IV NOW STA Stop: 08/03/20 23:05 Last Admin: 08/03/20 23:37 Dose: 5 mg Documented by: [id number] Metoprolol Tartrate (Metoprolol Tartrate 1 Mg/Ml Vial) 5 mg IV NOW STA Stop: 08/04/20 00:47 Last Admin: 08/04/20 00:55 Dose: 5 mg Documented by: [id number] Morphine Sulfate (Morphine Sulfate 4 Mg/Ml 1 Ml Carp\Vial) 4 mg IV NOW STA Stop: 08/03/20 21:06 Last Admin: 08/03/20 21:32 Dose: 4 mg Documented by: [id number] Imaging Data Radiologist's Impression: Foot X-Ray 08/03/20 21:05 LEFT FOOT 3 VIEWS CLINICAL HISTORY: Diabetic foot ulcer. FINDINGS: 3 views of the left foot are obtained. No prior studies are available for comparison at the time of dictation. The skeletal structures are osteopenic. No fracture is seen. There is no bony erosion or periostitis. Mild osteoar thritic change is seen at the first metatarsophalangeal joint. Mild degenerative change is also seen throughout the midfoot. There are dorsal and plantar calcaneal enthesophytes. Mild spurring is seen along the dorsal aspect of the tarsal bones. Soft tissue edema is noted in the forefoot. Soft tissue ulceration is suggested overlying the fifth metatarsophalangeal joint. No radiodense foreign body is identified. IMPRESSION: 1. Osteopenia and degenerative change as above with no acute bony abnormality identified. 2. Soft tissue edema is seen throughout the foot with an ulceration suggested overlying the fifth metatarsophalangeal joint. Clinical correlation will be required. Electronically signed by: Isaiah Horton M.D. 08/03/2020 9:52 PM Chest X-Ray 08/03/20 21:06 SINGLE VIEW CHEST CLINICAL HISTORY: Sepsis. FINDINGS: 2 AP, portable, upright chest radiographs are compared to study dated 05/24/2020. The examination is degraded by portable technique, apical lordotic positioning, and patient rotation. The heart is top normal for projection. The mediastinal contour is within normal limits. There is bibasilar atelectasis. The lungs and pleural spaces are otherwise clear. No pneumothorax is seen. The skeletal structures appear osteopenic. The bony thorax is grossly intact. IMPRESSION: No active disease in the chest. ACT 112: Negative or not required by law. Electronically signed by: Isaiah Horton M.D. 08/03/2020 9:53 PM Discharge Plan Visit Data Chief Complaint: Infection, Wound Stated Complaint: infection in Left foot, fever ED Provider: Kirt Larsen Discharge Problem: Sepsis, Diabetic foot ulcer associated with type 2 diabetes mellitus, Cellulitis of left foot, Hypomagnesemia Patient Disposition: Admitted As Inpatient Discharge Problem: Sepsis Qualifiers: Sepsis type: sepsis due to unspecified organism Sepsis acute organ dysfunction status: without acute organ dysfunction Qualified Code(s): A41.9 - Sepsis, unspecified organism Diabetic foot ulcer associated with type 2 diabetes mellitus Qualifiers: Diabetic foot ulcer location: toe Laterality: left Non-pressure ulcer stage: unspecified non-pressure ulcer stage Qualified Code(s): E11.621 - Type 2 diabetes mellitus with foot ulcer
[2020-08-04] MEDS ORDERED: dilTIAZem HCl 5 MG/ML 5 ML VIAL IV STA (00:05)
[2020-08-04] MEDS: MAGNESIUM SULFATE / D5W 1 GM/100 ML BAG IV SCH ×2 (00:10→01:02)
[2020-08-04 00:40] LABS: Appearance Urine Clear (Clear); Bacteria Urine Automated Negative (Negative); Bilirubin Urine Negative (Negative); Blood Urine 1+ (Negative); Color Urine Yellow; Glucose Urine UA 2+ (Negative); Ketones Urine Negative (Negative); Leukocyte Esterase Urine Negative (Negative); Nitrite Urine Negative (Negative); Protein Urine 3+ (Negative); RBC Urine Automated 0-4 /hpf (0-4); Specific Gravity Urine 1.017 (1.000-1.030); Urobilinogen Urine Negative (Negative)
[2020-08-04] MEDS ORDERED: METOPROLOL TARTRATE 1 MG/ML VIAL IV STA (00:46)
[2020-08-04] MEDS ORDERED: HYDROmorphone INJ 0.5 MG/0.5 ML SYR IV STA (01:33)
[2020-08-04] MEDS ORDERED: SODIUM CHLORIDE 0.9% 1000ML 1,000 ML IV SCH (01:35)
[2020-08-04] MEDS ORDERED: ACETAMINOPHEN 325 MG TAB PO ONE (02:00)
[2020-08-04] MEDS ORDERED: GLUCOSE 10 TABS/TUBE PO PRN (02:36)
[2020-08-04] MEDS ORDERED: CARBOHYDRATES FOR HYPOGLYCEMIA PO PRN (02:36)
[2020-08-04] MEDS ORDERED: GLUCOSE 40% GEL 15 GM TUBE PO PRN (02:36)
[2020-08-04] MEDS ORDERED: ALPRAZolam 0.5 MG TABLET PO PRN (02:36)
[2020-08-04] MEDS ORDERED: PIPERACILLIN/TAZOBACTAM 4.5 GM in DEXTROSE 5% 100 ML IV SCH (02:36)
[2020-08-04] MEDS ORDERED: PIPERACILL/TAZOBAC CONSULT ACTIVE PRN (02:36)
[2020-08-04] MEDS ORDERED: DEXTROSE 50% 50 ML SYRINGE IV PRN (02:36)
[2020-08-04] MEDS ORDERED: GLUCAGON FOR INJ 1 MG VIAL SQ PRN (02:36)
[2020-08-04] MEDS: PREGABALIN 100 MG CAP PO SCH ×3 (03:13→20:50)
[2020-08-04] MEDS: SODIUM CHLORIDE 0.9% 1000ML 1,000 ML IV SCH ×2 (04:18→10:08)
[2020-08-04] MEDS: PIPERACILLIN/TAZOBACTAM 4.5 GM in DEXTROSE 5% 100 ML IV SCH ×3 (04:18→23:21)
[2020-08-04] MEDS: INSULIN GLARGINE SOLOSTAR 100 UNITS/ML 3 ML PEN SQ SCH ×3 (04:21→21:52)
[2020-08-04] MEDS: METOPROLOL TARTRATE 1 MG/ML VIAL IV PRN ×2 (05:21→16:34)
[2020-08-04] MEDS: HYDROmorphone INJ 0.5 MG/0.5 ML SYR IV PRN ×5 (05:22→23:27)
[2020-08-04] MEDS: HEPARIN SOD 5,000 UNIT/0.5 ML VIAL SQ SCH ×3 (05:27→21:26)
[2020-08-04 06:54] LABS: Basophils # (auto) 0.02 K/uL (0-0.2); Basophils % (auto) 0.1 %; Eosinophils # (auto) 0.01 K/uL (0-0.5); Eosinophils % (auto) 0.1 %; Hematocrit (blood only) 37.7 % (42-52); Hemoglobin 12.7 g/dL (14.0-18.0); Immature Granulocytes # (auto) 0.07 K/uL (0.00-0.02); Immature Granulocytes % (auto) 0.4 %; Lymphocytes # (auto) 1.22 K/uL (1.2-3.4); Lymphocytes % (auto) 6.2 %; Mean Corpuscular Hemoglobin 28.7 pg (25-34); Mean Corpuscular Hgb Conc 33.7 g/dL (32-36); Mean Corpuscular Volume 85.3 fL (80-100); Mean Platelet Volume 11.9 fL (7.4-10.4); Monocytes # (auto) 0.74 K/uL (0.11-0.59); Monocytes % (auto) 3.7 %; Neutrophils # (auto) 17.74 K/uL (1.4-6.5); Neutrophils % (auto) 89.5 %; Platelet Count 277 K/uL (130-400); RDW Coefficient of Variation 13.8 % (11.5-14.5); RDW Standard Deviation 42.8 fL (36.4-46.3); Red Blood Count 4.42 M/uL (4.7-6.1)
[2020-08-04 07:21] LABS: Albumin Level 2.2 gm/dl (3.4-5.0); BUN Creatinine Ratio 12.6 (10-20); Calcium 8.4 mg/dl (8.5-10.1); Creatinine Clr Calc Pharmacy 48.7 ml/min; Est GFR (Non-African American) 23.3 ml/min; Magnesium 1.6 mg/dl (1.8-2.4); Potassium 5.3 mmol/L (3.5-5.1)
[2020-08-04 07:28] LABS: Albumin Globulin Ratio 0.5 (0.9-2); Bilirubin,Total 0.2 mg/dl (0.2-1); Globulin 4.7 gm/dl (2.5-4.0); Total Protein 6.9 gm/dl (6.4-8.2)
[2020-08-04] MEDS ORDERED: MAGNESIUM SULFATE / D5W 1 GM/100 ML BAG IV ONE (08:17)
[2020-08-04 08:36] LABS: Estimated Average Glucose 189 mg/dl; Hemoglobin A1C 8.2 % (4.5-5.6)
[2020-08-04] MEDS: buPROPion SR 150 MG TABCR PO SCH (08:49)
[2020-08-04] MEDS: MULTIVITAMIN TAB PO SCH (08:49)
[2020-08-04] MEDS: carvediloL 12.5 MG TAB PO SCH ×2 (08:49→20:49)
[2020-08-04] MEDS ORDERED: ATORVASTATIN 40 MG TAB PO SCH (09:00)
[2020-08-04] MEDS: INSULIN ASPART 100 UNITS/ML 3 ML PEN SC SCH ×3 (11:42→20:55)
--- NOTE | 2020-08-04 11:45 | Podiatry Consultation ---
Date of Consultation August 04, 2020 Assessment & Plan (1) Diabetic foot ulcer with osteomyelitis: Patient has chronic osteomyelitis right foot treated successfully with 8 week IV abx. Third interspace wound still present. Wound cleansed and dry sterile dressing applied. X-rays ordered at today's visit. Present on Admission?: Yes (2) Diabetic foot ulcer associated with type 2 diabetes mellitus: Left foot Ulcer evaluated at today's visit. Wound probes to capsule of fifth MTPJ. Does not probe to bone. X-rays of left foot reviewed. No gas or osseous involvement. Continue Zosyn until wound cultures and sensitivities reported. Wound cultured on 08/03/20 Gram Stain 2+ Gram Positive Cocci, No Polys Seen Culture 4+ Gram Negative Rods, 4+ Beta Hemolytic Streptococci Awaiting sensitivities. Manners in which pressure reduction could be achieved were investigated. Off- loading is a critical part of this patient's management. Factors which likely contribute to non-healing include: lack of adequate off- loading when supine, inadequately controlled infection, lack of adequate off- loading when ambulating, lack of adherence to diabetic footwear, a limited understanding of the disease of diabetes and its processes, lack of adherence to diabetic control measures. Diabetic foot ulcer location: toe Laterality: left Non-pressure ulcer stage: unspecified non-pressure ulcer stage Qualified Code(s): E11.621 - Type 2 diabetes mellitus with foot ulcer; L97.529 - Non-pressure chronic ulcer of other part of left foot with unspecified severity Present on Admission?: Yes (3) Cellulitis of left foot: (4) Cellulitis of left lower extremity: History of Present Illness Reason for Consultation: Left and Right foot Diabetic foot ulcers. Left foot cellulitis. Attending Physician: Otto Butts M.D. History of Present Illness Patient is a type II diabetic, 40 year old male who is seen at bedside at [facility]. He is resting comfortably. He notes he does have some left foot pain present and rates discomfort 6/10. Patient was seen in [facility] on 08/03/20 for conservative wound care. Left foot wound was cultured. Patient was dispensed oral abx Bactrim DS. He reports he did not fill Bactrim Rx as directed. Patient had arrived in office in [facility] and no dressing over bilateral foot ulcers. He had been dispensed off loading boots as well as off loading surgical shoes both have been modified for Patient. Patient was prescribed DM shoes with accommodative, functional, off loading custom molded orthotics and is awaiting an appointment in August for dispensing. Patient's called my cell phone last evening, 10pm concerned about Patient's sudden elevated temperature. She was advised to bring Ken into Emergency Department at [facility] for evaluation and treatment. Patient was dispensed Vancomycin and admitted to floor on Zosyn Iv abx. X-rays reviewed, showed no osseous involvement, no gas in tissue. He does have history of Right foot osteomyelitis treated conservatively with 8 weeks IV abx. Allergies Allergy/AdvReac Type Severity Reaction Status Date / Time amoxicillin AdvReac Mild Gastrointestinal Verified 08/04/20 00:12 Upset Home Medications Medication Instructions Recorded Confirmed Type amlodipine 10 mg PO QAM 04/08/19 08/04/20 History atorvastatin 80 mg PO QAM 04/08/19 08/04/20 History alprazolam 1 mg tablet 1 mg PO DAILY PRN 10/14/19 08/04/20 History bupropion HCl 150 mg tablet,12 hr 150 mg PO QAM 10/14/19 08/04/20 History sustained-release pregabalin 100 mg capsule 100 mg PO BID 12/01/19 08/04/20 History lisinopril 40 mg PO HS 01/04/20 08/04/20 History multivitamin 1 tab PO QAM 01/04/20 08/04/20 History amitriptyline 25 mg PO HS 01/14/20 08/04/20 History carvedilol 6.25 mg tablet 12.5 mg PO BID tab 03/21/20 08/04/20 History insulin aspart U-100 100 unit/mL 0 unit SUBCUT TIDM ml 03/21/20 08/04/20 History (3 mL) subcutaneous pen icosapent ethyl [Vascepa] 2 g PO BID 04/13/20 08/04/20 History tamsulosin 0.4 mg PO HS #30 cap 04/26/20 08/04/20 Rx insulin glargine 100 unit/mL (3 54 unit SQ BID box 07/31/20 08/04/20 History mL) subcutaneous pen semaglutide 0.5 mg SUBCUT .weekly ml 07/31/20 08/04/20 History ibuprofen [Advil] 800 mg PO TID PRN 08/04/20 08/04/20 History Patient History Medical History Anemia due to chronic kidney disease Chronic diarrhea reason for colonoscopy Diabetic nephropathy associated with type 2 diabetes mellitus DM neuropathy, painful DM retinopathy Habitual snoring never had a sleep study test done Hidradenitis suppurativa HTN (hypertension) Hyperlipidemia Kidney stones Morbid obesity with BMI of 45.0-49.9, adult Obesity Proteinuria Uncontrolled type 2 diabetes mellitus Surgical History History of cardiac cath 2014 ?? 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 History of eye surgery left eye multiple before eye removal History of tooth extraction History of wisdom tooth extraction Status post epidural steroid injection Family History Mother No problems noted. 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 Eyes: Patient has one prosthetic eye Ear, Nose, Mouth, Throat: as per Subjective / HPI Respiratory: as per Subjective / HPI Cardiovascular: as per Subjective / HPI Gastrointestinal: as per Subjective / HPI Genitourinary: + as per Subjective / HPI Musculoskeletal: as per Subjective / HPI Integumentary: + non-healing lesions, + skin ulcer, + erythema and + change in skin color Neurologic: as per Subjective / HPI Psychiatric: as per Subjective / HPI Endocrine: as per Subjective / HPI Hematologic / Lymphatic: as per Subjective / HPI Allergy / Immunological: as per Subjective / HPI Physical Exam Constitutional: well developed, well nourished, cooperative, comfortable and + overweight Eyes: Prosthetic eye present ENMT: external ear and nose normal, oropharynx normal Neck: trachea midline, no thyromegaly Respiratory: normal respiratory effort Cardiovascular: Rate/Rhythm: regular rate and regular rhythm Chest (Breasts): Chest: normal inspection of chest Gastrointestinal (Abdomen): normal bowel sounds, soft, nontender, no hepatosplenomegaly Musculoskeletal: no cyanosis or clubbing, extremities motor strength 5/5 Skin: Atrophic changes noted to legs and feet. Wound location:Right third interspace Wound base color and depth:Wound full thickness into muscle Wound size (cm):0.6x 0.3 x0.3 cm Odor:No malodor Drainage:Moderate serous drainage Undermining:None Borders:healthy Wound location:Left sub met 5 Wound base color and depth:full thickness ulcer into 5th MTPJ joint capsule Wound size (cm):1.7x1.8 x0.4cm Odor:No malodor Drainage:minimalserous drainage Undermining:None Borders:Heavy hyperkeratotic tissue Neurologic: Motor/Sensory: + sensory deficit Decreased epicritic sensation, loss of protective sensation to bilateral feet. Psychiatric: Orientation: alert and oriented x 3 Lymphatic: no cervical or axillary lymphadenopathy Results & Data ([facility]) Vital Signs (Past 12 Hours) Vital Signs Temp Pulse Pulse Resp BP BP Pulse Ox 08/04/20 11:12 37.2 C 122 H 16 91 08/04/20 08:00 116 H 08/04/20 07:12 37.7 C H 120 H 24 159/102 H 90 08/04/20 05:21 124 H 162/96 H 08/04/20 02:37 37.9 C H 133 H 22 162/96 H 94 08/04/20 02:36 08/04/20 02:15 134 H 26 H 167/90 H 97 08/04/20 02:00 130 H 5 L 168/99 H 96 08/04/20 01:54 132 H 11 L 172/99 H 98 08/04/20 01:45 135 H 27 H 180/105 H 93 08/04/20 01:41 136 H 22 146/82 H 97 08/04/20 01:34 137 H 21 146/82 H 97 08/04/20 01:30 137 H 33 H 97 08/04/20 01:15 133 H 40 H 191/111 H 94 08/04/20 01:01 130 H 6 L 95 08/04/20 01:00 131 H 21 185/107 H 90 08/04/20 00:55 144 H 0 L 88 L 08/04/20 00:53 39.6 C H 08/04/20 00:49 144 H 27 H 189/123 H 93 08/04/20 00:40 147 H 12 172/120 H 92 08/04/20 00:34 145 H 17 197/137 H 94 08/04/20 00:30 150 H 11 L 208/127 H 94 08/04/20 00:15 149 H 12 193/123 H 93 08/04/20 00:10 147 H 4 L 166/136 H 91 08/04/20 00:05 147 H 3 L 199/113 H 93 08/04/20 00:00 144 H 14 179/109 H 93 08/03/20 23:55 143 H 4 L 199/112 H 92 08/03/20 23:53 143 H 1 L 186/114 H 92 08/03/20 23:45 140 H 5 L 92 08/03/20 23:41 159 H 19 88 L Pulse Ox 08/04/20 11:12 08/04/20 08:00 08/04/20 07:12 08/04/20 05:21 08/04/20 02:37 08/04/20 02:36 96 08/04/20 02:15 08/04/20 02:00 08/04/20 01:54 08/04/20 01:45 08/04/20 01:41 08/04/20 01:34 08/04/20 01:30 08/04/20 01:15 08/04/20 01:01 08/04/20 01:00 08/04/20 00:55 08/04/20 00:53 08/04/20 00:49 08/04/20 00:40 08/04/20 00:34 08/04/20 00:30 08/04/20 00:15 08/04/20 00:10 08/04/20 00:05 08/04/20 00:00 08/03/20 23:55 08/03/20 23:53 08/03/20 23:45 08/03/20 23:41 DEEP WOUND CULTURE Order: [id number] Status: Preliminary result Visible to patient: No (not released) Dx: Diabetic polyneuropathy associated wi... Component 1d ago Specimen Description WOUND Special Requests None Gram Stain 2+ Gram Positive Cocci No Polys Seen Culture 4+ Gram Negative Rods 4+ Beta Hemolytic Streptococci Report Pending Resulting Agency [facility] Specimen Collected: 08/03/20 6:12 PM Last Resulted: 08/04/20 8:26 AM
--- NOTE | 2020-08-04 12:34 | Hospitalist Progress Note ---
Date of Service August 04, 2020 Assessment & Plan (1) Bacteremia due to Gram-positive bacteria: GPC in chains. Given the skin source likely to be a strep species. Remains on zosyn until cultures are final. Daptomycin 1 more day - can stop if MRSA or enterococcus is not isolated. Repeat blood cultures to determine if sterility has been obtained. Will need echo to r/o SBE. Fortunately no hypotension/shock despite his critical illness. (2) Diabetic foot ulcer associated with type 2 diabetes mellitus: Left 5th metatarsal head diabetic foot ulcer with cellulitis of the left lower extremity. Positive blood cultures for GPC in chains. Continue zosyn/daptomycin as above. I obtained a CT of the left tib-fib - no signs of deeper infection (nec fasc, abscess, etc). CT of left foot - some concern for osteomyelitis of 5th metatarsal head region. Ultimately to need MRI but too unstable for such at this time. Continue local wound care. Podiatry consult appreciated. Continue IV antibiotics. (3) Cellulitis of left lower extremity: As above (4) Acute kidney injury: Baseline Creatinine about 2.5 to 2.8. Now 3.1 and climbing. Likely ATN from septicemia/bacteremia. Serial BMP. Consider preston. (5) Acute respiratory failure with hypoxia and hypercapnia: Patient's respiratory status has worsened since admission. He was COVID negative and has had 2 shots of COVID vaccine. His clinical picture is most c/w acute pulmonary edema in the setting of copious IV hydration, CKD with BJ, and leak from sepsis. CXR today c/w pulmonary edema / CHF. Gave bumex 2mg IV x 1 without clinical response. Given his high creatinine he simply may need a larger dose of diuretic. Gave 2mg more of bumex given the worsening status. BIPAP ordered for patient. Wore for a few minutes then refused further usage. Doubt HFNC to be effective. Given his overall worsening status through the day, large concern for further respiratory decline, and potential for intubation I called and spoke with Dr Barnes from ICU. He accepted Mr Manzano to the ICU for ongoing care. (6) Acute pulmonary edema: Clinically and radiographically. Diuresis as above. Stop IV fluids. Needs echo. (7) SVT (supraventricular tachycardia): Much of his rhythm on tele has been sinus tach but there have been frequent runs of either atrial tachycardia or even a 2:1 atrial flutter. He has not responded to IV or PO beta blockers. Check TSH. Treat fever. Consider cardizem infusion for rate control if this is a flutter or a tachycardia. Needs echo. (8) Severe obstructive sleep apnea: Was scheduled to get sleep study in the near-future as outpatient. Refusing BIPAP as above. (9) Hypomagnesemia: 1.4 at presentation. Replaced at admission. Now normal. (10) Chronic kidney disease, stage IV (severe): baseline Cr 2.5 to 2.8. now with BJ/ARF. see above. (11) HTN (hypertension): Continue coreg. Hold CARMEN given his BJ. Amlodipine was held at admission. He ultimately may need cardizem infusion due to his tachycardia as above. (12) Uncontrolled type 2 diabetes mellitus: Hold semaglutide. Continue insulin glargine 54 units subcu twice daily a1c >8%. novolog coverage. (13) Mixed hyperlipidemia: hold Lipitor 80 mg daily (14) BPH loc w urin obs/LUTS: Continue tamsulosin 0.4 mg daily (15) Diabetic nephropathy associated with type 2 diabetes mellitus: Continue pregabalin 100 mg p.o. twice daily if Creatinine worsens further may need to reduce the dose or hold completely his lyrica (16) Elevated troponin: Likely myocardial demand ischemia in setting of bacteremia, ? a tach vs a flutter vs other, serious illness. Trend. (17) Morbid obesity with BMI of 45.0-49.9, adult: BMI 48 (18) DVT prophylaxis: heparin 7500 units TID (19) Multiorgan failure: In light of worsening respiratory status, bacteremia, acute pulmonary edema, BJ/ARF, noncompliance with BIPAP, ?atrial dysrhythmia, etc -- transferring the patient to ICU. extensively updated by phone this evening. total critical care time - 100 minutes including management of acute resp failure, hypoxia, etc. Admission and Anticipated Discharge Date Admission Date: August 03, 2020 Subjective tele overnight - sinus tach with ? PAT then, this afternoon, multiple strips with either 2:1 a. flutter or a. 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, Dr Puri, did come to see him today patient reports being fully vaccinated against COVID has very little appetite was supposed to have a sleep study soon and has never been on CPAP or BIPAP prior not on home o2 no prior h/o asthma or chronic lung disease 2nd visit to pt's bedside in the afternoon breathing was worse he was sitting at side of bed - again visibly dyspneic I had ordered BIPAP for him - only kept it on for a few minutes bumex 2mg IV x 1 had been given earlier with little UOP Review of Systems Constitutional: + fever, + chills, + fatigue, + weakness and + anorexia Ear, Nose, Mouth, Throat: no sore throat Respiratory: + cough, + dyspnea, + dyspnea on exertion and + wheezing Cardiovascular: + dyspnea at rest, + dyspnea on exertion, + orthopnea and + edema; no chest pain Gastrointestinal: no abdominal pain, no nausea and no vomiting Integumentary: + erythema (LLE) Physical Exam Constitutional: + acute distress (respiratory distress ) and + morbidly obese; no altered mental status ENMT: external ear and nose normal, oropharynx normal Respiratory: + respiratory distress, + retractions, + cough and + tachypneic Auscultation: + diminished lung sounds (bases), + crackles (mild - bases) and + wheezes Cardiovascular: Rate/Rhythm: + tachycardic and + irregularly irregular Heart Sounds: normal S1 and normal S2; no murmur Vessels: posterior tibial pulses present and dorsalis pedis pulses present; no JVD Extremities: + edema (1+ right, 2-3+ left foot and ankle ) Gastrointestinal (Abdomen): normal bowel sounds, soft, nontender, no hepatosplenomegaly Musculoskeletal: no ankle tenderness to palpation or passive ROM on left Skin: ulceration, left 5th metatarsal head region, with ?scant amount of visible bone present. mild drainage noted; no odor. erythematous and tender. left distal longoria with erythema & warmth c/w cellulitis. NO palpable crepitus on the distal left leg. No abscess on skin. Psychiatric: Orientation: alert and oriented x 3 Results & Data Results & Data ([facility]) Vital Signs (Past 12 Hours) Vital Signs Temp Pulse Pulse Resp BP BP Pulse Ox 08/04/20 11:12 37.2 C 122 H 16 91 08/04/20 08:00 116 H 08/04/20 07:12 37.7 C H 120 H 24 159/102 H 90 08/04/20 05:21 124 H 162/96 H 08/04/20 02:37 37.9 C H 133 H 22 162/96 H 94 08/04/20 02:36 08/04/20 02:15 134 H 26 H 167/90 H 97 08/04/20 02:00 130 H 5 L 168/99 H 96 08/04/20 01:54 132 H 11 L 172/99 H 98 08/04/20 01:45 135 H 27 H 180/105 H 93 08/04/20 01:41 136 H 22 146/82 H 97 08/04/20 01:34 137 H 21 146/82 H 97 08/04/20 01:30 137 H 33 H 97 08/04/20 01:15 133 H 40 H 191/111 H 94 08/04/20 01:01 130 H 6 L 95 08/04/20 01:00 131 H 21 185/107 H 90 08/04/20 00:55 144 H 0 L 88 L 08/04/20 00:53 39.6 C H 08/04/20 00:49 144 H 27 H 189/123 H 93 08/04/20 00:40 147 H 12 172/120 H 92 08/04/20 00:34 145 H 17 197/137 H 94 Pulse Ox 08/04/20 11:12 08/04/20 08:00 08/04/20 07:12 08/04/20 05:21 08/04/20 02:37 08/04/20 02:36 96 08/04/20 02:15 08/04/20 02:00 08/04/20 01:54 08/04/20 01:45 08/04/20 01:41 08/04/20 01:34 08/04/20 01:30 08/04/20 01:15 08/04/20 01:01 08/04/20 01:00 08/04/20 00:55 08/04/20 00:53 08/04/20 00:49 08/04/20 00:40 08/04/20 00:34 Laboratory Results Laboratory Results - last 24 hr 08/03/20 08/03/20 08/03/20 21:15 21:16 21:16 WBC 16.74 H RBC 4.93 Hgb 14.0 Hct 41.6 L MCV 84.4 MCH 28.4 MCHC 33.7 RDW Std Deviation 41.7 RDW Coeff of Nicky 13.7 Plt Count 326 MPV 11.4 H Immature Gran % (Auto) 0.2 Neut % (Auto) 87.6 Lymph % (Auto) 6.6 Meagher % (Auto) 4.7 Eos % (Auto) 0.7 Baso % (Auto) 0.2 Neut # (Auto) 14.67 H Lymph # (Auto) 1.10 L Meagher # (Auto) 0.79 H Eos # (Auto) 0.11 Baso # (Auto) 0.03 Immature Gran # (Auto) 0.04 H ESR 47 H PT INR APTT PTT Ratio VBG pH VBG pCO2 VBG pO2 VBG HCO3 VBG O2 Saturation VBG Base Excess Barometric Pressure Sodium Potassium Chloride Carbon Dioxide Anion Gap BUN Creatinine Est Cr Clr Drug Dosing Est GFR ( Amer) Est GFR (Non-Af Amer) BUN/Creatinine Ratio Glucose POC Glucose Estimat Average Glucose Hemoglobin A1c Lactate Calcium Phosphorus Magnesium Total Bilirubin Direct Bilirubin AST ALT Alkaline Phosphatase C-Reactive Protein Total Protein Albumin Globulin Albumin/Globulin Ratio Procalcitonin 0.08 Urine Color Urine Appearance Urine pH Ur Specific [place] Urine Protein Urine Glucose (UA) Urine Ketones Urine Blood Urine Nitrite Urine Bilirubin Urine Urobilinogen Ur Leukocyte Esterase Urine WBC (Auto) Urine RBC (Auto) U Hyaline Cast (Auto) U Epithel Cells (Auto) Urine Bacteria (Auto) COVID-19 Eval Order SARS-CoV-2 (PCR) 08/03/20 08/03/20 08/03/20 21:16 21:16 21:16 WBC RBC Hgb Hct MCV MCH MCHC RDW Std Deviation RDW Coeff of Nicky Plt Count MPV Immature Gran % (Auto) Neut % (Auto) Lymph % (Auto) Meagher % (Auto) Eos % (Auto) Baso % (Auto) Neut # (Auto) Lymph # (Auto) Meagher # (Auto) Eos # (Auto) Baso # (Auto) Immature Gran # (Auto) ESR PT 9.7 INR 1.0 APTT 24.2 PTT Ratio 0.9 VBG pH VBG pCO2 VBG pO2 VBG HCO3 VBG O2 Saturation VBG Base Excess Barometric Pressure Sodium 138 Potassium 5.2 H Chloride 106 Carbon Dioxide 25 Anion Gap 7.0 BUN 43 H Creatinine 3.07 H Est Cr Clr Drug Dosing 47.1 Est GFR ( Amer) 28.0 Est GFR (Non-Af Amer) 24.2 BUN/Creatinine Ratio 13.8 Glucose 276 H POC Glucose Estimat Average Glucose Hemoglobin A1c Lactate 2.2 H* Calcium 9.4 Phosphorus 3.1 Magnesium 1.4 L Total Bilirubin 0.3 Direct Bilirubin < 0.1 AST 17 ALT 19 Alkaline Phosphatase 102 C-Reactive Protein 1.40 H Total Protein 8.5 H Albumin 2.9 L Globulin 5.6 H Albumin/Globulin Ratio 0.5 L Procalcitonin Urine Color Urine Appearance Urine pH Ur Specific [place] Urine Protein Urine Glucose (UA) Urine Ketones Urine Blood Urine Nitrite Urine Bilirubin Urine Urobilinogen Ur Leukocyte Esterase Urine WBC (Auto) Urine RBC (Auto) U Hyaline Cast (Auto) U Epithel Cells (Auto) Urine Bacteria (Auto) COVID-19 Eval Order SARS-CoV-2 (PCR) 08/03/20 08/03/20 08/03/20 21:16 21:27 21:27 WBC RBC Hgb Hct MCV MCH MCHC RDW Std Deviation RDW Coeff of Nicky Plt Count MPV Immature Gran % (Auto) Neut % (Auto) Lymph % (Auto) Meagher % (Auto) Eos % (Auto) Baso % (Auto) Neut # (Auto) Lymph # (Auto) Meagher # (Auto) Eos # (Auto) Baso # (Auto) Immature Gran # (Auto) ESR PT INR APTT PTT Ratio VBG pH 7.36 VBG pCO2 46 VBG pO2 22 VBG HCO3 25 VBG O2 Saturation < 60.0 VBG Base Excess -0.3 Barometric Pressure 728.2 Sodium Potassium Chloride Carbon Dioxide Anion Gap BUN Creatinine Est Cr Clr Drug Dosing Est GFR ( Amer) Est GFR (Non-Af Amer) BUN/Creatinine Ratio Glucose POC Glucose Estimat Average Glucose Hemoglobin A1c Lactate Calcium Phosphorus Magnesium Total Bilirubin Direct Bilirubin AST ALT Alkaline Phosphatase C-Reactive Protein Total Protein Albumin Globulin Albumin/Globulin Ratio Procalcitonin Urine Color Urine Appearance Urine pH Ur Specific [place] Urine Protein Urine Glucose (UA) Urine Ketones Urine Blood Urine Nitrite Urine Bilirubin Urine Urobilinogen Ur Leukocyte Esterase Urine WBC (Auto) Urine RBC (Auto) U Hyaline Cast (Auto) U Epithel Cells (Auto) Urine Bacteria (Auto) COVID-19 Eval Order Covid19 at [facility] SARS-CoV-2 (PCR) NEGATIVE 08/03/20 08/03/20 08/04/20 23:52 23:55 02:41 WBC RBC Hgb Hct MCV MCH MCHC RDW Std Deviation RDW Coeff of Nicky Plt Count MPV Immature Gran % (Auto) Neut % (Auto) Lymph % (Auto) Meagher % (Auto) Eos % (Auto) Baso % (Auto) Neut # (Auto) Lymph # (Auto) Meagher # (Auto) Eos # (Auto) Baso # (Auto) Immature Gran # (Auto) ESR PT INR APTT PTT Ratio VBG pH VBG pCO2 VBG pO2 VBG HCO3 VBG O2 Saturation VBG Base Excess Barometric Pressure Sodium Potassium Chloride Carbon Dioxide Anion Gap BUN Creatinine Est Cr Clr Drug Dosing Est GFR ( Amer) Est GFR (Non-Af Amer) BUN/Creatinine Ratio Glucose POC Glucose 251 H Estimat Average Glucose Hemoglobin A1c Lactate 3.5 H* Calcium Phosphorus Magnesium Total Bilirubin Direct Bilirubin AST ALT Alkaline Phosphatase C-Reactive Protein Total Protein Albumin Globulin Albumin/Globulin Ratio Procalcitonin Urine Color Yellow Urine Appearance Clear Urine pH 6.0 Ur Specific [place] 1.017 Urine Protein 3+ H Urine Glucose (UA) 2+ H Urine Ketones Negative Urine Blood 1+ H Urine Nitrite Negative Urine Bilirubin Negative Urine Urobilinogen Negative Ur Leukocyte Esterase Negative Urine WBC (Auto) 1-5 Urine RBC (Auto) 0-4 U Hyaline Cast (Auto) 1-5 U Epithel Cells (Auto) 5-10 H Urine Bacteria (Auto) Negative COVID-19 Eval Order SARS-CoV-2 (PCR) 08/04/20 08/04/20 08/04/20 05:28 05:28 05:28 WBC 19.80 H RBC 4.42 L Hgb 12.7 L Hct 37.7 L MCV 85.3 MCH 28.7 MCHC 33.7 RDW Std Deviation 42.8 RDW Coeff of Nicky 13.8 Plt Count 277 MPV 11.9 H Immature Gran % (Auto) 0.4 Neut % (Auto) 89.5 Lymph % (Auto) 6.2 Meagher % (Auto) 3.7 Eos % (Auto) 0.1 Baso % (Auto) 0.1 Neut # (Auto) 17.74 H Lymph # (Auto) 1.22 Meagher # (Auto) 0.74 H Eos # (Auto) 0.01 Baso # (Auto) 0.02 Immature Gran # (Auto) 0.07 H ESR PT INR APTT PTT Ratio VBG pH VBG pCO2 VBG pO2 VBG HCO3 VBG O2 Saturation VBG Base Excess Barometric Pressure Sodium 137 Potassium 5.3 H Chloride 111 H Carbon Dioxide 22 Anion Gap 4.0 BUN 40 H Creatinine 3.16 H Est Cr Clr Drug Dosing 48.7 Est GFR ( Amer) 27.0 Est GFR (Non-Af Amer) 23.3 BUN/Creatinine Ratio 12.6 Glucose 219 H POC Glucose Estimat Average Glucose 189 Hemoglobin A1c 8.2 H Lactate Calcium 8.4 L Phosphorus Magnesium 1.6 L Total Bilirubin 0.2 Direct Bilirubin AST 17 ALT 17 Alkaline Phosphatase 90 C-Reactive Protein Total Protein 6.9 Albumin 2.2 L Globulin 4.7 H Albumin/Globulin Ratio 0.5 L Procalcitonin Urine Color Urine Appearance Urine pH Ur Specific [place] Urine Protein Urine Glucose (UA) Urine Ketones Urine Blood Urine Nitrite Urine Bilirubin Urine Urobilinogen Ur Leukocyte Esterase Urine WBC (Auto) Urine RBC (Auto) U Hyaline Cast (Auto) U Epithel Cells (Auto) Urine Bacteria (Auto) COVID-19 Eval Order SARS-CoV-2 (PCR) 08/04/20 08/04/20 08/04/20 07:26 08:55 11:19 WBC RBC Hgb Hct MCV MCH MCHC RDW Std Deviation RDW Coeff of Nicky Plt Count MPV Immature Gran % (Auto) Neut % (Auto) Lymph % (Auto) Meagher % (Auto) Eos % (Auto) Baso % (Auto) Neut # (Auto) Lymph # (Auto) Meagher # (Auto) Eos # (Auto) Baso # (Auto) Immature Gran # (Auto) ESR PT INR APTT PTT Ratio VBG pH VBG pCO2 VBG pO2 VBG HCO3 VBG O2 Saturation VBG Base Excess Barometric Pressure Sodium Potassium Chloride Carbon Dioxide Anion Gap BUN Creatinine Est Cr Clr Drug Dosing Est GFR ( Amer) Est GFR (Non-Af Amer) BUN/Creatinine Ratio Glucose POC Glucose 203 H 260 H Estimat Average Glucose Hemoglobin A1c Lactate 2.1 H* Calcium Phosphorus Magnesium Total Bilirubin Direct Bilirubin AST ALT Alkaline Phosphatase C-Reactive Protein Total Protein Albumin Globulin Albumin/Globulin Ratio Procalcitonin Urine Color Urine Appearance Urine pH Ur Specific [place] Urine Protein Urine Glucose (UA) Urine Ketones Urine Blood Urine Nitrite Urine Bilirubin Urine Urobilinogen Ur Leukocyte Esterase Urine WBC (Auto) Urine RBC (Auto) U Hyaline Cast (Auto) U Epithel Cells (Auto) Urine Bacteria (Auto) COVID-19 Eval Order SARS-CoV-2 (PCR) Diagnostic Findings Microbiology 08/03/20 21:06 Blood Aerobic Blood Culture - Preliminary Gram positive cocci 08/03/20 21:06 Blood Anaerobic Blood Culture - Preliminary Gram positive cocci in chains 08/03/20 21:15 Blood Aerobic Blood Culture - Preliminary Gram positive cocci in chains 08/03/20 21:15 Blood Anaerobic Blood Culture - Preliminary Gram positive cocci in chains PG Care Time/CCT Total # of Minutes Spent Total Time Spent with Patient: Total time spent is greater than 50% in coordination of care (as documented) at patient's floor/unit and/or counseling patient: Critical Care Time: Yes Total Critical Care Time: 100 Coding Level of Care Code None Diagnoses Bacteremia due to Gram-positive bacteria R78.81 Diabetic foot ulcer associated with type 2 diabetes mellitus E11.621; L97.529 Diabetic foot ulcer location: toe Laterality: left Non-pressure ulcer stage: unspecified non-pressure ulcer stage Cellulitis of left lower extremity L03.116 Acute kidney injury N17.9 Acute respiratory failure with hypoxia and hypercapnia J96.01; J96.02 Acute pulmonary edema J81.0 SVT (supraventricular tachycardia) I47.1 Severe obstructive sleep apnea G47.33 Hypomagnesemia E83.42 Chronic kidney disease, stage IV (severe) N18.4 HTN (hypertension) I10 Hypertension type: essential hypertension Uncontrolled type 2 diabetes mellitus E11.65 Glycemic state: with hyperglycemia Mixed hyperlipidemia E78.2 BPH loc w urin obs/LUTS N40.1 Diabetic nephropathy associated with type 2 diabetes mellitus E11.21 Elevated troponin R77.8 Morbid obesity with BMI of 45.0-49.9, adult E66.01; Z68.42 DVT prophylaxis Z29.9 Multiorgan failure Additional Codes Critical Care Time - Critical Care Time: Yes ([id number]) Time Spent (min) 100 (1) Diabetic foot ulcer associated with type 2 diabetes mellitus Diabetic foot ulcer location: toe Laterality: left Non-pressure ulcer stage: unspecified non-pressure ulcer stage Qualified Code(s): E11.621 - Type 2 diabetes mellitus with foot ulcer; L97.529 - Non-pressure chronic ulcer of other part of left foot with unspecified severity (2) Uncontrolled type 2 diabetes mellitus Glycemic state: with hyperglycemia Qualified Code(s): E11.65 - Type 2 diabete s mellitus with hyperglycemia (3) HTN (hypertension) Hypertension type: essential hypertension Qualified Code(s): I10 - Essential (primary) hypertension
--- NOTE | 2020-08-04 13:34 | CT Scan Report ---
CT tib/fib LT wo con CLINICAL HISTORY: necrotizing fasciitis / gas pockets COMPARISON STUDY: Left foot radiographs August 03, 2020. TECHNIQUE: Axial images of the left tibia and fibula were obtained without IV contrast. Sagittal and coronal reconstructions were obtained. Automated exposure control was utilized for the study. A dose lowering technique was utilized adhering to the principles of ALARA. FINDINGS: Please note that the CT of the left foot will be reported separately. No left knee joint ef fusion is noted. No soft tissue gas within the left lower leg is identified. Soft tissue calcificatio ns are vascular in etiology. There is extensive subcutaneous edema of the left lower leg and the foot with skin thickening. No fluid collection is identified on this unenhanced exam to suggest an absces s. No acute fracture within the left tibia or fibula is identified. There is no evidence for osteomye litis within the left tibia or fibula. IMPRESSION: 1. No soft tissue gas within the left lower leg. 2. Subcutaneous fluid and skin thickening. This may reflect cellulitis or edema. No fluid collection to suggest abscess. 3. No acute fracture or evidence for osteomyelitis within the left tibia or fibula. ACT 112: Negative or not required by law. Electronically signed by: Arodlo Nichole M.D. 08/04/2020 1:33 PM
--- NOTE | 2020-08-04 13:45 | CT Scan Report ---
CT foot LT wo con CLINICAL HISTORY: L 5th metatarsal head ulcer; eval deep abscess etc COMPARISON STUDY: Left foot radiographs August 03, 2020. TECHNIQUE: Axial images of the left foot were obtained without IV contrast. Sagittal and coronal feli nstructions were viewed. Automated exposure control was utilized for the study. A dose lowering tech nique was utilized adhering to the principles of ALARA. FINDINGS: No soft tissue gas within the left foot is noted. There is extensive subcutaneous fluid of the left foot, greatest dorsally. Note is made of a wound overlying the plantar lateral aspect of the left fifth metatarsal head. There is possible subtle erosion of the lateral aspect of the left fifth metatarsal head. No fluid collection is identified on this unenhanced exam to suggest an abscess. No acute fracture is noted. Tarsometatarsal joints are intact. No radiopaque foreign bodies are identif ied. IMPRESSION: Wound overlying the plantar lateral aspect of the left fifth metatarsal with associated cellulitis. N o soft tissue gas. No abscess identified on unenhanced exam. Equivocal subtle erosion of the left fif th metatarsal head which could reflect acute osteomyelitis. If indicated, MRI could be obtained for f cherri evaluation. ACT 112: Negative or not required by law. Electronically signed by: Aroldo Nichole M.D. 08/04/2020 1:43 PM
--- NOTE | 2020-08-04 14:03 | XRay Report ---
XR chest 1V not portable CLINICAL HISTORY: dyspnea; ?pulm edema? COMPARISON STUDY: Chest radiograph August 03, 2020. FINDINGS: Lung volumes are normal. There is no pneumothorax or pleural effusion. Mild cardiomegaly is noted. There has been interval development of interstitial thickening and bilateral opacities, great er within the right lung. IMPRESSION: Interval development of interstitial thickening and bilateral opacities, greater within the right lung. The findings may reflect asymmetric pulmonary edema or an infectious process. ACT 112: Negative or not required by law. Electronically signed by: Aroldo Nichole M.D. 08/04/2020 2:02 PM
--- NOTE | 2020-08-04 14:17 | XRay Report ---
XR foot RT min 3V routine CLINICAL HISTORY: chronic osteomyelitis, DM ulcer COMPARISON: MRI of the right foot April 17, 2020. Right foot radiographs May 24, 2020. FINDINGS: Note is again made of erosions of the bases of the proximal phalanges of the second throug h fifth toes as well as the second, third and fourth metatarsal heads. Several of these erosions are less conspicuous than on exam of May 24, 2020. No new bony erosions are identified. No acute fractu re is identified. Tarsometatarsal joints are intact. Dorsal soft tissue swelling of the right foot is noted. IMPRESSION: Redemonstration of erosions within the bases of the second through fifth proximal phalang es and the head of the second through fourth metatarsals shoulder radiographs May 24, 2020. Several of these erosions are less conspicuous. The findings favor chronic osteomyelitis. No new erosions id entified. ACT 112: Negative or not required by law. Electronically signed by: Aroldo Nichole M.D. 08/04/2020 2:16 PM
[2020-08-04] MEDS ORDERED: BUMETANIDE 2 MG in SYRINGE 0 ML IV ONE ×2 (15:00→18:00)
--- NOTE | 2020-08-04 15:11 | Electrocardiogram Report ---
Test Reason : Blood Pressure : / mmHG Vent. Rate : 144 BPM Atrial Rate : 144 BPM P-R Int : 120 ms QRS Dur : 108 ms QT Int : 320 ms P-R-T Axes : 000 -36 122 degrees QTc Int : 495 ms Sinus tachycardia Incomplete left bundle block Leftward axis Abnormal ECG When compared with ECG of 13-APR-2020 16:44, No significant change was found Confirmed by Kvng Ocampo ([id number]) on 08/04/2020 3:11:40 PM Referred By: REFERRED SELF Confirmed By:Kvng Ocampo
[2020-08-04] MEDS ORDERED: STAT IV Infusion **Titration per Protocol STA (17:59)
[2020-08-04] MEDS ORDERED: ACETAMINOPHEN 500 MG TAB PO ONE (17:59)
[2020-08-04] MEDS ORDERED: dilTIAZem HCL 125 MG in DEXTROSE 5% 100 ML IV SCH (18:00)
[2020-08-04 19:18] LABS: BUN Creatinine Ratio 10.9 (10-20); Calcium 8.3 mg/dl (8.5-10.1); Creatinine Clr Calc Pharmacy 42.6 ml/min; Est GFR (Non-African American) 19.9 ml/min; Magnesium 1.9 mg/dl (1.8-2.4)
--- NOTE | 2020-08-04 19:19 | Critical Care Consultation ---
Date of Consultation August 04, 2020 Assessment & Plan (1) Admitted to intensive care unit: Reason Critically Ill: 40-year-old male with likely sepsis from LEFT foot ulcer with cellulitis with ongoing tachycardia, fevers, and new onset of hypoxia requiring close hemodynamic monitoring after initiation of Cardizem drip. NEURO - * CAM ICU: NEGATIVE * Pain: Dilaudid as needed CARDIAC/VASCULAR - * Tachycardia: * On review of patient's hospitalization, he has been tachycardic in the 130s to 140s throughout this current stay. * Review of EKG demonstrates sinus tachycardia with incomplete left bundle branch block. No ST changes noted otherwise. * Agree with continuing Cardizem drip as patient had failed attempts at fluid resuscitation and subsequently resulted in a degree of pulmonary edema. * Will aim for fever control as a degree of his tachycardia is likely metabolically driven from associated fever and acuity of illness. * With associated acute hypoxia, cannot rule out other pulmonary causes including developing pneumonia, PE, etc. Please see pulmonary. * Will check troponin and a.m. echocardiogram. * NSTEMI: * Elevated troponin noted on lab draw upon arriving in the ICU. * While this can be related to the patient's degree of kidney failure, it is certainly concerning given his degree of tachycardia. * This, combined with the patient's acute hypoxia (please see Pulmonary), we will start a Heparin gtt. * Thankfully, the patient is without ST changes/elevations or complaints of chest pain. * HTN/HLD: * Home Amlodipine, CARMEN held 2/2 BJ. * Will address changes to meds as needed. * Monitor on telemetry. RESPIRATORY - * Acute hypoxia: * Chest x-ray concerning for possible development of infectious process versus pulmonary edema. * Patient received intravenous Bumex with modest results. * Had a lengthy conversation with the patient regarding utility of BiPAP. He is willing to try at this time. * Repeat chest x-ray shows infiltrates in the RIGHT sided lung field greater than the left. * Patient is currently covered with antibiotics. * Will titrate down BiPAP settings as tolerated. Hopefully we are able to transition to nasal cannula by morning. * Given the degree of hypoxemia with drops in oxygen saturations into the low 80s with movement from one bed to the other, and unfortunately without the lungs were being able to obtain CT PE study secondary to renal function, I do feel it is appropriate to evaluate the patient for possible underlying thromboembolic processes. * Patient had recent long distance travel. He is relatively immobile secondary to his foot wound. He does have moderate unilateral swelling LEFT versus right of the lower extremities. His brother did have a history of DVT with a history of immobility as well. * Orders placed for ultrasound of the bilateral lower extremities. * A.m. echocardiogram ordered. * Unfortunately, with troponin being elevated, this certainly could indicate possibility of underlying PE. After discussing case with my attending provider as well as patient, orders placed for IV heparin without bolus. * I will check BNP as well as troponin to evaluate for possible signs of cardiac strain. Unfortunately, with his degree of renal failure, I presume that he is likely to have elevation in these findings regardless. Thankfully, the patient remains relatively hemodynamically stable otherwise. * So to this point, the patient is covered from a pulmonary standpoint to include infectious causes, NIPPV and diuresis for possible volume overload, and with anticoagulation for possible underlying PE. GI/NUTRITION - * Diabetic and heart healthy diet is encouraged. RENAL/LYTES - * Acute kidney injury on CKD 4: * Unfortunately, the patient is with a baseline creatinine of approximately 3. His creatinine continues to climb. This is despite adequate fluid resuscitation which has subsequently into degree of pulmonary edema. * Agree with diuresis. * Will place Patten catheter for strict ELSIE's. * Will consult nephrology for further guidance. - * Patten in place - Strict I&Os. ENDO - * Insulin-dependent diabetes * BSGs per unit protocol. ISS --> gtt per unit policy. HEME - * Stable H&H. * Patient with baseline anemia likely secondary to chronic kidney disease. ID - * Severe sepsis: * Likely secondary to cellulitis of the LEFT foot. * Patient evaluated by podiatry today as well as multiple imaging studies. No significant acute osteomyelitis noted. * Currently covered with Zosyn and daptomycin. * Blood cultures pending. LINES/IV ACCESS - * PIVs x3 * Patten DVT PROPHYLAXIS - * Heparin drip * SCDs I have personally spent 55 minutes of critical care time in the direct management of this patient. This is a life/limb threatening event. This includes time spent evaluating patient, direct bedside care, chart review, placing orders, interpretation of diagnostic studies, discussion with consultants, marye nt, and family members, as well as other required patient management activities. This time is exclusive of all separately billable procedures, and teaching time and separate from and in addition to any other critical care service time. Thank you for allowing us to participate in the care of this patient. Please refer to my attending physician's documentation for any further recommendations. (2) Hypoxia: (3) Pulmonary edema: (4) Tachycardia: (5) Hypertension: (6) Acute kidney injury: (7) Elevated troponin: (8) Cellulitis of left lower extremity: (9) Sepsis: (10) Severe obstructive sleep apnea: History of Present Illness Attending Physician: Sai Gonzales History of Present Illness Patient is a 40-year-old male with a significant past medical history of insulin-dependent diabetes, diabetic neuropathy, diabetic retinopathy, hypertension, hyperlipidemia, obesity, and recent diabetic ulceration to the LEFT foot. Patient was hospitalized from 04/13-04/26 for this foot infection. He has been followed in the outpatient after an reduced course of antibiotics. 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 Patient noted to be persistently tachycardic while admitted on the floor. Patient has been hypertensive. Chest x-ray showed concerns for pulmonary edema. This was after fluid resuscitation. Patient received 4 mg of IV Bumex. He has been unable to tolerate BiPAP secondary to anxiety. He has been currently covered with broad-spectrum antibiotics including daptomycin and Zosyn. Unfortunately, today, the patient developed worsening hypoxia requiring oxygen mask for rapid desaturation. Patient has been hypertensive and tachycardic. He was started on Cardizem drip and transferred to the ICU for ongoing evaluation management. Upon evaluation in the ICU, the patient is awake, alert, and oriented. He is slightly tachypneic, but able to answer questions in complete sentences and appropriately otherwise. He complains of pain to the LEFT foot. He describes some shortness of breath and mild cough which she reports has been new over the last several hours. He denies any current headaches, dizziness, lightheadedness, chest pain, palpitations, pleuritic pain, hemoptysis, nausea, vomiting, or abdominal pain. Patient reports that he recently traveled to and from [place] by car. His drove. He admits to being relatively immobile recently secondary to the foot ulcer. He does report some increased welling to the LEFT lower extremity which she feels is secondary to the infection. He is not a smoker. His brother does have a history of DVT after Achilles tendon rupture with casting. Otherwise, the patient denies any family history of known blood clot/bleeding disorders. Allergies Allergy/AdvReac Type Severity Reaction Status Date / Time amoxicillin AdvReac Mild Gastrointestinal Verified 08/04/20 00:12 Upset Home Medications Medication Instructions Recorded Confirmed Type amlodipine 10 mg PO QAM 04/08/19 08/04/20 History atorvastatin 80 mg PO QAM 04/08/19 08/04/20 History alprazolam 1 mg tablet 1 mg PO DAILY PRN 10/14/19 08/04/20 History bupropion HCl 150 mg tablet,12 hr 150 mg PO QAM 10/14/19 08/04/20 History sustained-release pregabalin 100 mg capsule 100 mg PO BID 12/01/19 08/04/20 History lisinopril 40 mg PO HS 01/04/20 08/04/20 History multivitamin 1 tab PO QAM 01/04/20 08/04/20 History amitriptyline 25 mg PO HS 01/14/20 08/04/20 History carvedilol 6.25 mg tablet 12.5 mg PO BID tab 03/21/20 08/04/20 History insulin aspart U-100 100 unit/mL 0 unit SUBCUT TIDM ml 03/21/20 08/04/20 History (3 mL) subcutaneous pen icosapent ethyl [Vascepa] 2 g PO BID 04/13/20 08/04/20 History tamsulosin 0.4 mg PO HS #30 cap 04/26/20 08/04/20 Rx insulin glargine 100 unit/mL (3 54 unit SQ BID box 07/31/20 08/04/20 History mL) subcutaneous pen semaglutide 0.5 mg SUBCUT .weekly ml 07/31/20 08/04/20 History ibuprofen [Advil] 800 mg PO TID PRN 08/04/20 08/04/20 History Patient History Medical History Anemia due to chronic kidney disease Chronic diarrhea reason for colonoscopy Diabetic nephropathy associated with type 2 diabetes mellitus DM neuropathy, painful DM retinopathy Habitual snoring never had a sleep study test done [facility] HTN (hypertension) Hyperlipidemia Kidney stones Morbid obesity with BMI of 45.0-49.9, adult Obesity Proteinuria Uncontrolled type 2 diabetes mellitus Surgical History History of cardiac cath 2014 ?? 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 History of eye surgery left eye multiple before eye removal History of tooth extraction History of wisdom tooth extraction Status post epidural steroid injection Family History Mother No problems noted. Father , Age 60, [place] Myocardial infarction Unknown Charcot-Ana disease Neuropathy Brother Family history of diabetes mellitus Other No family history of adverse response to anesthesia No significant family history Social History Smoking Status: Never smoker Second Hand Exposure: No; Hx Alcohol Use: No Hx Substance Use: Yes Last Used Substance: Days (ago) Substance Use Type Other:: edibles for neuropathy Preferred Language: Yakut Communication Ability: Effective Script Worker Required: No Beliefs That Will Affect Care: None marital status: Current Living Situation: Spouse Current Living Situation Comment: Lives with spouse current occupational status: employed Other Information That Helps Us Care for You: No Feels Safe at Home: Yes Safety Concerns: Feels Safe At This Time Assistive Devices: Glasses and Oxygen - Continuous Assistive Devices Comment: prosthetic left eye Review of Systems Review of Systems: A complete 10 point review of systems was reviewed with the patient with pertinent positives and negatives as per history of present illness. All else were negative. Physical Exam Physical Exam: VITAL SIGNS - Vital signs and nursing notes were reviewed. GENERAL - 40-year-old male appearing his stated age who is in no acute distress. Communicates well with provider and answers questions appropriately. SKIN -dressing in place to the LEFT foot. Edema and erythema spreading proximally up the LEFT calf. Tenderness palpation and warmth in this area. HEAD - NC/AT. EYES - PERRL with EOMI bilaterally. Sclera anicteric. EARS - No deformities of external structures noted on gross examination bilaterally. NOSE - Midline and without cyanosis. No epistaxis or purulent drainage noted. MOUTH/OROPHARYNX - Without perioral cyanosis. Buccal mucosa pink and moist and without leukoplakia. NECK - Neck with FROM. Supple to palpation. No nuchal rigidity. LUNGS - Chest wall symmetric without accessory muscle use. Slightly tachypneic. Able to speak in complete sentences. Distant breath sounds noted. No adventitious breath sounds otherwise. CARDIAC - RRR with S1/S2. No murmur, rubs, or gallops appreciated. ABDOMEN - Abdominal contour obese without pulsations or visible masses. BS normoactive all four quadrants. No tenderness, palpable masses, hepatosplenomegaly, or ascites noted. EXTREMITIES -edema, erythema, and warmth to the LEFT lower extremity. Wound dressing in place to the LEFT foot. +3/5 radial and dorsalis pedis pulses palpated throughout. +5/5 strength noted in UE/LE bilaterally. NEUROLOGIC - Cranial nerves II through XII grossly intact. Sensory intact to light touch throughout. PSYCH - A&Ox3 and cooperates fully with examiner. Pt is very pleasant and interacts well with examiner. Results & Data Results & Data ([facility]) Vital Signs (Past 12 Hours) Vital Signs Temp Pulse Pulse Resp BP BP Pulse Ox 08/04/20 18:32 38.2 C H 138 H 37 H 166/101 H 89 L 08/04/20 18:31 141 H 43 H 87 L 08/04/20 16:47 91 08/04/20 16:34 136 H 161/81 H 08/04/20 16:27 161/81 H 88 L 08/04/20 15:42 37.6 C H 136 H 30 H 174/117 H 90 08/04/20 15:26 133 H 08/04/20 11:12 37.2 C 122 H 16 91 08/04/20 08:00 116 H Pulse Ox 08/04/20 18:32 08/04/20 18:31 08/04/20 16:47 91 08/04/20 16:34 08/04/20 16:27 08/04/20 15:42 08/04/20 15:26 08/04/20 11:12 08/04/20 08:00 Coding Level of Care Code Critical Care 1st 30-74 mins Diagnoses Admitted to intensive care unit Z78.9 Hypoxia R09.02 Pulmonary edema J81.1 Tachycardia R00.0 Hypertension I10 Acute kidney injury N17.9 Elevated troponin R77.8 Cellulitis of left lower extremity L03.116 Sepsis A41.9 Sepsis acute organ dysfunction status: without acute organ dysfunction Sepsis type: sepsis due to unspecified organism Severe obstructive sleep apnea G47.33 Time Spent (min) 55 (1) Sepsis Sepsis acute organ dysfunction status: without acute organ dysfunction Sepsis type: sepsis due to unspecified organism Qualified Code(s): A41.9 - Sepsis, unspecified organism
[2020-08-04] MEDS ORDERED: Heparin IV Adult Wt-Based Standard *NO* Bolus Protocol IV SCH (19:39)
[2020-08-04 19:40] LABS: Base Excess VBG -3.9 mEq/L; HCO3 VBG 23 mmol/L; PCO2 VBG 49 mmHg (38-50); PO2 VBG 26 mmHg; pH VBG 7.29 (7.36-7.41)
[2020-08-04 19:43] LABS: Oxygen Saturation VBG < 60.0 %; Thyroid Stimulating Hormone 0.923 uIu/ml (0.300-4.500); Troponin I 0.279 ng/ml (0-0.045)
[2020-08-04 20:48] LABS: Partial Thromboplastin Ratio 1.1; Partial Thromboplastin Time 28.2 Seconds (21.0-31.0); Prothrombin Time 10.3 Seconds (9.0-12.0)
[2020-08-04] MEDS: TAMSULOSIN HCL 0.4 MG CAP PO SCH (20:50)
[2020-08-04] MEDS: HEPARIN SODIUM/DEXTROSE 25,000 UNITS/500 ML BAG IV SCH (20:57)
[2020-08-04] MEDS ORDERED: Nursing to Pharmacy Communication SCH (21:45)
[2020-08-04] MEDS: DAPTOmycin 650 MG in SYRINGE 0 ML IV SCH (23:21)
[2020-08-05] MEDS: ACETAMINOPHEN 1,000 MG/100 ML VIAL IV PRN ×3 (00:17→20:20)
[2020-08-05] MEDS: HYDROmorphone INJ 0.5 MG/0.5 ML SYR IV PRN ×2 (02:58→20:20)
[2020-08-05 03:09] LABS: Basophils # (auto) 0.03 K/uL (0-0.2); Basophils % (auto) 0.2 %; Eosinophils # (auto) 0.01 K/uL (0-0.5); Eosinophils % (auto) 0.1 %; Hematocrit (blood only) 33.7 % (42-52); Hemoglobin 10.9 g/dL (14.0-18.0); Immature Granulocytes # (auto) 0.06 K/uL (0.00-0.02); Immature Granulocytes % (auto) 0.4 %; Lymphocytes # (auto) 2.34 K/uL (1.2-3.4); Lymphocytes % (auto) 14.6 %; Mean Corpuscular Hemoglobin 27.9 pg (25-34); Mean Corpuscular Hgb Conc 32.3 g/dL (32-36); Mean Corpuscular Volume 86.4 fL (80-100); Mean Platelet Volume 11.3 fL (7.4-10.4); Monocytes # (auto) 0.67 K/uL (0.11-0.59); Monocytes % (auto) 4.2 %; Neutrophils # (auto) 12.93 K/uL (1.4-6.5); Neutrophils % (auto) 80.5 %; Platelet Count 219 K/uL (130-400); RDW Standard Deviation 44.1 fL (36.4-46.3); White Blood Count 16.04 K/uL (4.8-10.8)
[2020-08-05 03:17] LABS: Partial Thromboplastin Ratio 1.5; Partial Thromboplastin Time 39.5 Seconds (21.0-31.0)
[2020-08-05 03:26] LABS: Albumin Level 1.9 gm/dl (3.4-5.0); BUN Creatinine Ratio 9.8 (10-20); Calcium 7.6 mg/dl (8.5-10.1); Est GFR (African American) 18.7 ml/min; Est GFR (Non-African American) 16.2 ml/min; Magnesium 1.6 mg/dl (1.8-2.4); Potassium 4.5 mmol/L (3.5-5.1)
[2020-08-05 03:54] LABS: Albumin Globulin Ratio 0.4 (0.9-2); Bilirubin,Total 0.4 mg/dl (0.2-1); Globulin 4.7 gm/dl (2.5-4.0); Phosphorus 3.9 mg/dl (2.5-4.9); Total Protein 6.6 gm/dl (6.4-8.2)
[2020-08-05] MEDS ORDERED: CALCIUM GLUCONATE 10% 1,000 MG in SODIUM CHLORIDE 0.9% 50 ML IV ONE (04:30)
[2020-08-05] MEDS: MAGNESIUM SULFATE / D5W 1 GM/100 ML BAG IV SCH ×2 (04:30→06:16)
[2020-08-05 05:28] LABS: Troponin I 0.284 ng/ml (0-0.045)
[2020-08-05] MEDS: HEPARIN SOD 5,000 UNIT/0.5 ML VIAL SQ SCH (06:16)
--- NOTE | 2020-08-05 07:14 | Ultrasound Report ---
ULTRASOUND BILATERAL LOWER EXTREMITY VENOUS CLINICAL HISTORY: Lower extremity edema. COMPARISON STUDY: Left lower extremity venous ultrasound dated 01/14/2020. TECHNIQUE: Real-time, grayscale, and color Doppler sonography of the deep veins of the right and left lower extremity was performed from the inguinal crease to the calf. Compression and augmentation wer e utilized. FINDINGS: There is no sonographic evidence of deep venous thrombosis identified in the right or left lower extremity. The common femoral, superficial femoral, and popliteal veins are patent and normally compressible bilaterally. The greater saphenous vein and the profunda femoris vein at the junction w ith the common femoral vein are clear in both legs. The visualized calf veins are patent bilaterally. IMPRESSION: There is no sonographic evidence of deep venous thrombosis identified in the right or lef t lower extremity. ACT 112: Negative or not required by law. Electronically signed by: Isaiah Horton M.D. 08/05/2020 7:12 AM
--- NOTE | 2020-08-05 07:46 | XRay Report ---
XR chest 1V portable CLINICAL HISTORY: f/u COMPARISON STUDY: Chest radiograph August 04, 2020 at 7:45 PM. FINDINGS: Lung volumes are normal. There is no pneumothorax or pleural effusion. Interstitial thicken ing and bilateral opacities, greater within the right lung, are again noted. Right lung airspace opac ities have slightly improved. IMPRESSION: Interstitial thickening and bilateral opacities, greater within the right lung. Slight i mprovement in right lung opacities. The findings may reflect asymmetric pulmonary edema or pneumonia. ACT 112: Negative or not required by law. Electronically signed by: Aroldo Nichole M.D. 08/05/2020 7:45 AM
[2020-08-05] MEDS: PIPERACILLIN/TAZOBACTAM 4.5 GM in DEXTROSE 5% 100 ML IV SCH ×3 (08:40→23:48)
[2020-08-05] MEDS: carvediloL 12.5 MG TAB PO SCH ×2 (08:47→20:22)
[2020-08-05] MEDS: buPROPion SR 150 MG TABCR PO SCH (08:47)
[2020-08-05] MEDS: MULTIVITAMIN TAB PO SCH (08:47)
[2020-08-05] MEDS: PREGABALIN 100 MG CAP PO SCH ×2 (08:48→20:31)
[2020-08-05] MEDS: INSULIN ASPART 100 UNITS/ML 3 ML PEN SC SCH ×4 (09:05→20:50)
--- NOTE | 2020-08-05 09:27 | XRay Report ---
SINGLE VIEW CHEST CLINICAL HISTORY: Hypoxia. FINDINGS: 2 AP, portable, semierect chest radiographs are compared to study performed earlier the carole 08/04/2020. The examination is degraded by portable technique and patient rotation. The heart i s enlarged. Asymmetric airspace consolidation is seen throughout the right lung as compared to the le ft. No large pleural effusion or pneumothorax is seen. The bony thorax is grossly intact. IMPRESSION: 1. Asymmetric airspace consolidation is seen throughout the right lung as compared to left. This has increased from today's earlier examination, and could represent progressive multifocal pneumonia or p ossibly asymmetric pulmonary edema. Clinical correlation will be essential. 2. The heart appears enlarged. 3. No large pleural effusion is identified. ACT 112: Negative or not required by law. Electronically signed by: Isaiah Horton M.D. 08/05/2020 9:25 AM
[2020-08-05] MEDS: HEPARIN SODIUM/DEXTROSE 25,000 UNITS/500 ML BAG IV SCH ×3 (10:13→21:40)
--- NOTE | 2020-08-05 10:20 | Electrocardiogram Report ---
Test Reason : Blood Pressure : / mmHG Vent. Rate : 141 BPM Atrial Rate : 141 BPM P-R Int : 144 ms QRS Dur : 104 ms QT Int : 320 ms P-R-T Axes : 000 -36 113 degrees QTc Int : 490 ms Poor data quality, interpretation may be adversely affected Sinus tachycardia Left axis deviation Incomplete left bundle block Abnormal ECG When compared with ECG of 03-AUG-2020 21:32, No significant change was found Confirmed by Kvng Ocampo ([id number]) on 08/05/2020 10:19:58 AM Referred By: REFERRED SELF Confirmed By:Kvng Ocampo
[2020-08-05 10:38] LABS: Partial Thromboplastin Ratio 1.6; Partial Thromboplastin Time 42.5 Seconds (21.0-31.0)
--- NOTE | 2020-08-05 10:38 | Electrocardiogram Report ---
Test Reason : Blood Pressure : / mmHG Vent. Rate : 136 BPM Atrial Rate : 136 BPM P-R Int : 150 ms QRS Dur : 114 ms QT Int : 284 ms P-R-T Axes : 012 -43 120 degrees QTc Int : 427 ms Sinus tachycardia Left axis deviation Incomplete left bundle block Abnormal ECG When compared with ECG of 03-AUG-2020 23:45, (unconfirmed) No significant change was found Confirmed by Kvng Ocampo ([id number]) on 08/05/2020 10:37:52 AM Referred By: REFERRED SELF Confirmed By:Kvng Ocampo
--- NOTE | 2020-08-05 10:39 | Critical Care Progress Note ---
Date of Service August 05, 2020 Assessment & Plan (1) Admitted to intensive care unit: Reason Critically Ill: 40-year-old male with likely sepsis from LEFT foot ulcer with cellulitis with ongoing tachycardia, fevers, and new onset of hypoxia requiring close hemodynamic monitoring after initiation of Cardizem drip. NEURO - * CAM ICU: NEGATIVE * Pain: Dilaudid as needed CARDIAC/VASCULAR - * Tachycardia: * On review of patient's hospitalization, he has been tachycardic in the 130s to 140s throughout this current stay. * Review of EKG demonstrates sinus tachycardia with incomplete left bundle branch block. No ST changes noted otherwise. * Agree with continuing Cardizem drip as patient had failed attempts at fluid resuscitation and subsequently resulted in a degree of pulmonary edema. * Will aim for fever control as a degree of his tachycardia is likely metabolically driven from associated fever and acuity of illness. * With associated acute hypoxia, cannot rule out other pulmonary causes including developing pneumonia, PE, etc. Please see pulmonary. * Will check troponin and a.m. echocardiogram. * NSTEMI: * Elevated troponin noted on lab draw upon arriving in the ICU. * While this can be related to the patient's degree of kidney failure, it is certainly concerning given his degree of tachycardia. * This, combined with the patient's acute hypoxia (please see Pulmonary), we will start a Heparin gtt. * Thankfully, the patient is without ST changes/elevations or complaints of chest pain. * HTN/HLD: * Home Amlodipine, CARMEN held 2/2 BJ. * Will address changes to meds as needed. * Monitor on telemetry. RESPIRATORY - * Acute hypoxia: * Chest x-ray concerning for possible development of infectious process versus pulmonary edema. * Patient received intravenous Bumex with modest results. * Had a lengthy conversation with the patient regarding utility of BiPAP. He is willing to try at this time. * Repeat chest x-ray shows infiltrates in the RIGHT sided lung field greater than the left. * Patient is currently covered with antibiotics. * Will titrate down BiPAP settings as tolerated. Hopefully we are able to transition to nasal cannula by morning. * Given the degree of hypoxemia with drops in oxygen saturations into the low 80s with movement from one bed to the other, and unfortunately without the lungs were being able to obtain CT PE study secondary to renal function, I do feel it is appropriate to evaluate the patient for possible underlying thromboembolic processes. * Patient had recent long distance travel. He is relatively immobile secondary to his foot wound. He does have moderate unilateral swelling LEFT versus right of the lower extremities. His brother did have a history of DVT with a history of immobility as well. * ultrasound of the bilateral lower extremities: Negative. * A.m. echocardiogram pending. GI/NUTRITION - * Diabetic and heart healthy diet is encouraged. RENAL/LYTES - * Acute kidney injury on CKD 4: * Volume overload: Starting Bumex infusion at 0.25 mg/h * Will place Patten catheter for strict ELSIE's. * Will consult nephrology for further guidance over possibility of hemodialysis to manage volume overload -Repeat BMP, lactic acid, VBG at 1700 today - * Patten in place - Strict I&Os. ENDO - * Insulin-dependent diabetes * BSGs per unit protocol. ISS --> gtt per unit policy. HEME - * Mild anemia. * Patient with baseline anemia likely secondary to chronic kidney disease -Repeat H&H later today. Empiric systemic anticoagulation for possible venous thromboembolism/PE given degree of hypoxia and inability to obtain definitive studies ID - * Severe sepsis: * Streptococcal bacteremia * Complicated skin and soft tissue infection: Nonpurulent * Likely secondary to cellulitis of the LEFT foot, no appearance of necrotizing process * Patient evaluated by podiatry today as well as multiple imaging studies. No significant acute osteomyelitis noted. * Currently covered with Zosyn and daptomycin. * Blood cultures positive LINES/IV ACCESS - * PIVs x3 * Patten DVT PROPHYLAXIS - * Heparin drip * SCDs (2) Hypoxia: (3) Pulmonary edema: (4) Tachycardia: (5) Hypertension: (6) Acute kidney injury: (7) Elevated troponin: (8) Cellulitis of left lower extremity: (9) Sepsis: (10) Severe obstructive sleep apnea: Admission and Anticipated Discharge Date Admission Date: August 03, 2020 Supervising Physician Co-Signing Physician Notes Patient was discussed with hospitalist and bedside nurse. I have personally spent 65 minutes of critical care time in the direct management of this patient. This is a life/limb threatening event. This includes time spent evaluating patient, direct bedside care, chart review, placing orders, interpretation of diagnostic studies, discussion with consultants, patient, and/or family members regarding treatment decisions, as well as other required patient management activities. This time is exclusive of all separately billable procedures, and teaching time and separate from and in addition to any other critical care service time. Physical Exam Physical Exam: General: Alert. nontoxic. Skin: Warm, dry, Head: Atraumatic Ears, nose, mouth and throat: airway patent Cardiovascular: Normal peripheral perfusion Respiratory: no respiratory distress Gastrointestinal: Non distended Results & Data Results & Data ([facility]) Vital Signs (Past 12 Hours) Vital Signs Temp Pulse Resp BP Pulse Ox 08/05/20 09:23 39.2 C H 115 H 26 H 125/77 99 08/05/20 08:14 39.0 C H 110 H 22 117/74 100 08/05/20 08:00 105 H 08/05/20 07:14 39.0 C H 108 H 22 126/75 100 08/05/20 03:43 38.8 C H 98 H 21 88/73 L 97 08/05/20 03:38 98 H 22 98 08/05/20 03:14 38.8 C H 98 H 21 100 08/05/20 03:13 38.8 C H 98 H 24 101/57 L 94 08/05/20 03:00 38.8 C H 102 H 26 H 94 08/05/20 02:00 38.9 C H 108 H 19 98 08/05/20 01:59 38.9 C H 109 H 21 100/64 97 08/05/20 01:54 39.0 C H 106 H 22 105/72 95 08/05/20 01:49 39.0 C H 107 H 22 106/69 94 08/05/20 01:44 39.0 C H 108 H 24 110/74 93 08/05/20 01:39 39.1 C H 109 H 22 103/71 96 08/05/20 01:34 39.1 C H 112 H 27 H 106/74 88 L 08/05/20 01:29 39.2 C H 112 H 25 H 118/72 94 08/05/20 01:24 39.2 C H 113 H 25 H 116/80 92 08/05/20 01:19 39.3 C H 112 H 25 H 114/76 96 08/05/20 01:14 39.3 C H 113 H 23 124/72 94 08/05/20 01:09 39.4 C H 114 H 25 H 120/76 94 08/05/20 01:04 39.5 C H 113 H 23 121/76 96 08/05/20 01:00 39.5 C H 114 H 22 91 08/05/20 00:59 39.5 C H 115 H 26 H 125/81 92 08/05/20 00:54 39.6 C H 115 H 25 H 120/80 92 08/05/20 00:49 39.6 C H 115 H 25 H 125/80 93 08/05/20 00:45 39.6 C H 116 H 25 H 93 08/05/20 00:44 39.6 C H 115 H 23 128/77 93 08/05/20 00:39 39.6 C H 116 H 24 117/82 94 08/05/20 00:34 39.6 C H 117 H 25 H 129/82 94 08/05/20 00:29 39.6 C H 118 H 26 H 146/87 H 95 08/05/20 00:24 39.6 C H 118 H 26 H 144/91 H 95 08/05/20 00:19 39.6 C H 118 H 27 H 140/93 96 08/05/20 00:14 39.6 C H 118 H 26 H 126/90 96 08/05/20 00:11 107 H 24 94 08/05/20 00:09 39.6 C H 117 H 25 H 139/85 96 08/05/20 00:04 39.5 C H 117 H 26 H 143/93 H 96 08/05/20 00:00 39.5 C H 117 H 27 H 97 08/04/20 23:59 39.5 C H 116 H 25 H 140/83 97 08/04/20 23:54 39.5 C H 116 H 26 H 128/86 93 08/04/20 23:49 39.5 C H 115 H 26 H 127/84 93 08/04/20 23:44 39.5 C H 116 H 26 H 144/89 H 93 08/04/20 23:39 39.5 C H 117 H 29 H 153/91 H 93 08/04/20 23:34 39.5 C H 119 H 19 149/89 H 98 08/04/20 23:29 39.4 C H 121 H 31 H 146/89 H 99 08/04/20 23:24 39.4 C H 119 H 27 H 150/98 H 98 08/04/20 23:19 39.4 C H 117 H 28 H 142/96 H 99 08/04/20 23:14 39.4 C H 118 H 31 H 138/93 99 08/04/20 23:09 39.3 C H 117 H 29 H 142/93 H 100 08/04/20 23:04 39.3 C H 116 H 28 H 134/95 99 08/04/20 23:00 39.3 C H 116 H 26 H 99 08/04/20 22:59 39.3 C H 117 H 26 H 138/92 99 08/04/20 22:57 117 H 08/04/20 22:54 39.3 C H 116 H 27 H 135/92 97 08/04/20 22:49 39.2 C H 116 H 28 H 133/87 98 08/04/20 22:44 39.2 C H 115 H 27 H 136/82 99 08/04/20 22:39 39.2 C H 116 H 28 H 136/85 97 Laboratory Results 08/05/20 08/05/20 08/05/20 Range/Units 09:31 07:48 04:48 WBC (4.8-10.8) K/uL RBC (4.7-6.1) M/uL Hgb (14.0-18.0) g/dL Hct (42-52) % MCV (80-100) fL MCH (25-34) pg MCHC (32-36) g/dL RDW Std Deviation (36.4-46.3) fL RDW Coeff of Nicky (11.5-14.5) % Plt Count (130-400) K/uL MPV (7.4-10.4) fL Immature Gran % (Auto) % Neut % (Auto) % Lymph % (Auto) % [place] % (Auto) % Eos % (Auto) % Baso % (Auto) % Neut # (Auto) (1.4-6.5) K/uL Lymph # (Auto) (1.2-3.4) K/uL [place] # (Auto) (0.11-0.59) K/uL Eos # (Auto) (0-0.5) K/uL Baso # (Auto) (0-0.2) K/uL Immature Gran # (Auto) (0.00-0.02) K/uL PT (9.0-12.0) Seconds INR (0.9-1.1) APTT 42.5 H (21.0-31.0) Seconds PTT Ratio 1.6 VBG pH (7.36-7.41) VBG pCO2 (38-50) mmHg VBG pO2 mmHg VBG HCO3 mmol/L VBG O2 Saturation % VBG Base Excess mEq/L Barometric Pressure mm/Hg Sodium (136-145) mmol/L Potassium (3.5-5.1) mmol/L Chloride (98-107) mmol/L Carbon Dioxide (21-32) mmol/L Anion Gap (3-11) BUN (7-18) mg/dl Creatinine (0.6-1.4) mg/dl Est Cr Clr Drug Dosing ml/min Est GFR ( Amer) ml/min Est GFR (Non-Af Amer) ml/min BUN/Creatinine Ratio (10-20) Glucose (70-99) mg/dl POC Glucose 142 H (70-99) mg/dl Lactate (0.4-2.0) mmol/L Calcium (8.5-10.1) mg/dl Phosphorus (2.5-4.9) mg/dl Magnesium Total Bilirubin (0.2-1) mg/dl AST (15-37) U/L ALT (12-78) U/L Alkaline Phosphatase (45-117) U/L Total Creatine Kinase (39-308) U/L Troponin I 0.284 H* (0-0.045) ng/ml NT-Pro-B Natriuret Pep 2831 H (0-450) pg/ml Total Protein (6.4-8.2) gm/dl Albumin (3.4-5.0) gm/dl Globulin (2.5-4.0) gm/dl Albumin/Globulin Ratio (0.9-2) Procalcitonin (0-0.5) ng/ml TSH Nasal Screen MRSA (PCR) (Negative) 08/05/20 08/05/20 08/05/20 Range/Units 02:56 02:56 02:56 WBC 16.04 H (4.8-10.8) K/uL RBC 3.90 L (4.7-6.1) M/uL Hgb 10.9 L (14.0-18.0) g/dL Hct 33.7 L (42-52) % MCV 86.4 (80-100) fL MCH 27.9 (25-34) pg MCHC 32.3 (32-36) g/dL RDW Std Deviation 44.1 (36.4-46.3) fL RDW Coeff of Nicky 14.0 (11.5-14.5) % Plt Count 219 (130-400) K/uL MPV 11.3 H (7.4-10.4) fL Immature Gran % (Auto) 0.4 % Neut % (Auto) 80.5 % Lymph % (Auto) 14.6 % [place] % (Auto) 4.2 % Eos % (Auto) 0.1 % Baso % (Auto) 0.2 % Neut # (Auto) 12.93 H (1.4-6.5) K/uL Lymph # (Auto) 2.34 (1.2-3.4) K/uL [place] # (Auto) 0.67 H (0.11-0.59) K/uL Eos # (Auto) 0.01 (0-0.5) K/uL Baso # (Auto) 0.03 (0-0.2) K/uL Immature Gran # (Auto) 0.06 H (0.00-0.02) K/uL PT (9.0-12.0) Seconds INR (0.9-1.1) APTT (21.0-31.0) Seconds PTT Ratio VBG pH (7.36-7.41) VBG pCO2 (38-50) mmHg VBG pO2 mmHg VBG HCO3 mmol/L VBG O2 Saturation % VBG Base Excess mEq/L Barometric Pressure mm/Hg Sodium 135 L (136-145) mmol/L Potassium 4.5 (3.5-5.1) mmol/L Chloride 108 H (98-107) mmol/L Carbon Dioxide 21 (21-32) mmol/L Anion Gap 6.0 (3-11) BUN 42 H (7-18) mg/dl Creatinine 4.28 H D (0.6-1.4) mg/dl Est Cr Clr Drug Dosing 36.0 ml/min Est GFR ( Amer) 18.7 ml/min Est GFR (Non-Af Amer) 16.2 ml/min BUN/Creatinine Ratio 9.8 L (10-20) Glucose 123 H (70-99) mg/dl POC Glucose (70-99) mg/dl Lactate (0.4-2.0) mmol/L Calcium 7.6 L (8.5-10.1) mg/dl Phosphorus 3.9 (2.5-4.9) mg/dl Magnesium 1.6 L Total Bilirubin 0.4 (0.2-1) mg/dl AST 30 (15-37) U/L ALT 22 (12-78) U/L Alkaline Phosphatase 77 (45-117) U/L Total Creatine Kinase (39-308) U/L Troponin I (0-0.045) ng/ml NT-Pro-B Natriuret Pep (0-450) pg/ml Total Protein 6.6 (6.4-8.2) gm/dl Albumin 1.9 L (3.4-5.0) gm/dl Globulin 4.7 H (2.5-4.0) gm/dl Albumin/Globulin Ratio 0.4 L (0.9-2) Procalcitonin 1.70 H (0-0.5) ng/ml TSH Nasal Screen MRSA (PCR) (Negative) 08/05/20 08/04/20 08/04/20 Range/Units 02:56 20:53 20:25 WBC (4.8-10.8) K/uL RBC (4.7-6.1) M/uL Hgb (14.0-18.0) g/dL Hct (42-52) % MCV (80-100) fL MCH (25-34) pg MCHC (32-36) g/dL RDW Std Deviation (36.4-46.3) fL RDW Coeff of Nicky (11.5-14.5) % Plt Count (130-400) K/uL MPV (7.4-10.4) fL Immature Gran % (Auto) % Neut % (Auto) % Lymph % (Auto) % [place] % (Auto) % Eos % (Auto) % Baso % (Auto) % Neut # (Auto) (1.4-6.5) K/uL Lymph # (Auto) (1.2-3.4) K/uL [place] # (Auto) (0.11-0.59) K/uL Eos # (Auto) (0-0.5) K/uL Baso # (Auto) (0-0.2) K/uL Immature Gran # (Auto) (0.00-0.02) K/uL PT 10.3 (9.0-12.0) Seconds INR 1.0 (0.9-1.1) APTT 39.5 H 28.2 (21.0-31.0) Seconds PTT Ratio 1.5 1.1 VBG pH (7.36-7.41) VBG pCO2 (38-50) mmHg VBG pO2 mmHg VBG HCO3 mmol/L VBG O2 Saturation % VBG Base Excess mEq/L Barometric Pressure mm/Hg Sodium (136-145) mmol/L Potassium (3.5-5.1) mmol/L Chloride (98-107) mmol/L Carbon Dioxide (21-32) mmol/L Anion Gap (3-11) BUN (7-18) mg/dl Creatinine (0.6-1.4) mg/dl Est Cr Clr Drug Dosing ml/min Est GFR ( Amer) ml/min Est GFR (Non-Af Amer) ml/min BUN/Creatinine Ratio (10-20) Glucose (70-99) mg/dl POC Glucose 124 H (70-99) mg/dl Lactate (0.4-2.0) mmol/L Calcium (8.5-10.1) mg/dl Phosphorus (2.5-4.9) mg/dl Magnesium Total Bilirubin (0.2-1) mg/dl AST (15-37) U/L ALT (12-78) U/L Alkaline Phosphatase (45-117) U/L Total Creatine Kinase (39-308) U/L Troponin I (0-0.045) ng/ml NT-Pro-B Natriuret Pep (0-450) pg/ml Total Protein (6.4-8.2) gm/dl Albumin (3.4-5.0) gm/dl Globulin (2.5-4.0) gm/dl Albumin/Globulin Ratio (0.9-2) Procalcitonin (0-0.5) ng/ml TSH Nasal Screen MRSA (PCR) (Negative) 08/04/20 08/04/20 08/04/20 Range/Units 20:25 18:48 18:48 WBC (4.8-10.8) K/uL RBC (4.7-6.1) M/uL Hgb (14.0-18.0) g/dL Hct (42-52) % MCV (80-100) fL MCH (25-34) pg MCHC (32-36) g/dL RDW Std Deviation (36.4-46.3) fL RDW Coeff of Nicky (11.5-14.5) % Plt Count (130-400) K/uL MPV (7.4-10.4) fL Immature Gran % (Auto) % Neut % (Auto) % Lymph % (Auto) % [place] % (Auto) % Eos % (Auto) % Baso % (Auto) % Neut # (Auto) (1.4-6.5) K/uL Lymph # (Auto) (1.2-3.4) K/uL [place] # (Auto) (0.11-0.59) K/uL Eos # (Auto) (0-0.5) K/uL Baso # (Auto) (0-0.2) K/uL Immature Gran # (Auto) (0.00-0.02) K/uL PT (9.0-12.0) Seconds INR (0.9-1.1) APTT (21.0-31.0) Seconds PTT Ratio VBG pH 7.29 L (7.36-7.41) VBG pCO2 49 (38-50) mmHg VBG pO2 26 mmHg VBG HCO3 23 mmol/L VBG O2 Saturation < 60.0 % VBG Base Excess -3.9 mEq/L Barometric Pressure 734.5 mm/Hg Sodium (136-145) mmol/L Potassium (3.5-5.1) mmol/L Chloride (98-107) mmol/L Carbon Dioxide (21-32) mmol/L Anion Gap (3-11) BUN (7-18) mg/dl Creatinine (0.6-1.4) mg/dl Est Cr Clr Drug Dosing ml/min Est GFR ( Amer) ml/min Est GFR (Non-Af Amer) ml/min BUN/Creatinine Ratio (10-20) Glucose (70-99) mg/dl POC Glucose (70-99) mg/dl Lactate 1.6 (0.4-2.0) mmol/L Calcium (8.5-10.1) mg/dl Phosphorus (2.5-4.9) mg/dl Magnesium Total Bilirubin (0.2-1) mg/dl AST (15-37) U/L ALT (12-78) U/L Alkaline Phosphatase (45-117) U/L Total Creatine Kinase Cancelled (39-308) U/L Troponin I (0-0.045) ng/ml NT-Pro-B Natriuret Pep (0-450) pg/ml Total Protein (6.4-8.2) gm/dl Albumin (3.4-5.0) gm/dl Globulin (2.5-4.0) gm/dl Albumin/Globulin Ratio (0.9-2) Procalcitonin (0-0.5) ng/ml TSH Nasal Screen MRSA (PCR) (Negative) 08/04/20 08/04/20 08/04/20 Range/Units 18:48 18:48 18:43 WBC (4.8-10.8) K/uL RBC (4.7-6.1) M/uL Hgb (14.0-18.0) g/dL Hct (42-52) % MCV (80-100) fL MCH (25-34) pg MCHC (32-36) g/dL RDW Std Deviation (36.4-46.3) fL RDW Coeff of Nicky (11.5-14.5) % Plt Count (130-400) K/uL MPV (7.4-10.4) fL Immature Gran % (Auto) % Neut % (Auto) % Lymph % (Auto) % [place] % (Auto) % Eos % (Auto) % Baso % (Auto) % Neut # (Auto) (1.4-6.5) K/uL Lymph # (Auto) (1.2-3.4) K/uL [place] # (Auto) (0.11-0.59) K/uL Eos # (Auto) (0-0.5) K/uL Baso # (Auto) (0-0.2) K/uL Immature Gran # (Auto) (0.00-0.02) K/uL PT (9.0-12.0) Seconds INR (0.9-1.1) APTT (21.0-31.0) Seconds PTT Ratio VBG pH (7.36-7.41) VBG pCO2 (38-50) mmHg VBG pO2 mmHg VBG HCO3 mmol/L VBG O2 Saturation % VBG Base Excess mEq/L Barometric Pressure mm/Hg Sodium 135 L (136-145) mmol/L Potassium 5.0 (3.5-5.1) mmol/L Chloride 108 H (98-107) mmol/L Carbon Dioxide 24 (21-32) mmol/L Anion Gap 3.0 (3-11) BUN 40 H (7-18) mg/dl Creatinine 3.61 H D (0.6-1.4) mg/dl Est Cr Clr Drug Dosing 42.6 ml/min Est GFR ( Amer) 23.0 ml/min Est GFR (Non-Af Amer) 19.9 ml/min BUN/Creatinine Ratio 10.9 (10-20) Glucose 173 H (70-99) mg/dl POC Glucose (70-99) mg/dl Lactate (0.4-2.0) mmol/L Calcium 8.3 L (8.5-10.1) mg/dl Phosphorus (2.5-4.9) mg/dl Magnesium 1.9 Cancelled Total Bilirubin (0.2-1) mg/dl AST (15-37) U/L ALT (12-78) U/L Alkaline Phosphatase (45-117) U/L Total Creatine Kinase 439 H (39-308) U/L Troponin I 0.279 H* (0-0.045) ng/ml NT-Pro-B Natriuret Pep (0-450) pg/ml Total Protein (6.4-8.2) gm/dl Albumin (3.4-5.0) gm/dl Globulin (2.5-4.0) gm/dl Albumin/Globulin Ratio (0.9-2) Procalcitonin (0-0.5) ng/ml TSH 0.923 Cancelled Nasal Screen MRSA (PCR) Negative (Negative) 08/04/20 08/04/20 Range/Units 16:26 11:19 WBC (4.8-10.8) K/uL RBC (4.7-6.1) M/uL Hgb (14.0-18.0) g/dL Hct (42-52) % MCV (80-100) fL MCH (25-34) pg MCHC (32-36) g/dL RDW Std Deviation (36.4-46.3) fL RDW Coeff of Nicky (11.5-14.5) % Plt Count (130-400) K/uL MPV (7.4-10.4) fL Immature Gran % (Auto) % Neut % (Auto) % Lymph % (Auto) % [place] % (Auto) % Eos % (Auto) % Baso % (Auto) % Neut # (Auto) (1.4-6.5) K/uL Lymph # (Auto) (1.2-3.4) K/uL [place] # (Auto) (0.11-0.59) K/uL Eos # (Auto) (0-0.5) K/uL Baso # (Auto) (0-0.2) K/uL Immature Gran # (Auto) (0.00-0.02) K/uL PT (9.0-12.0) Seconds INR (0.9-1.1) APTT (21.0-31.0) Seconds PTT Ratio VBG pH (7.36-7.41) VBG pCO2 (38-50) mmHg VBG pO2 mmHg VBG HCO3 mmol/L VBG O2 Saturation % VBG Base Excess mEq/L Barometric Pressure mm/Hg Sodium (136-145) mmol/L Potassium (3.5-5.1) mmol/L Chloride (98-107) mmol/L Carbon Dioxide (21-32) mmol/L Anion Gap (3-11) BUN (7-18) mg/dl Creatinine (0.6-1.4) mg/dl Est Cr Clr Drug Dosing ml/min Est GFR ( Amer) ml/min Est GFR (Non-Af Amer) ml/min BUN/Creatinine Ratio (10-20) Glucose (70-99) mg/dl POC Glucose 171 H 260 H (70-99) mg/dl Lactate (0.4-2.0) mmol/L Calcium (8.5-10.1) mg/dl Phosphorus (2.5-4.9) mg/dl Magnesium Total Bilirubin (0.2-1) mg/dl AST (15-37) U/L ALT (12-78) U/L Alkaline Phosphatase (45-117) U/L Total Creatine Kinase (39-308) U/L Troponin I (0-0.045) ng/ml NT-Pro-B Natriuret Pep (0-450) pg/ml Total Protein (6.4-8.2) gm/dl Albumin (3.4-5.0) gm/dl Globulin (2.5-4.0) gm/dl Albumin/Globulin Ratio (0.9-2) Procalcitonin (0-0.5) ng/ml TSH Nasal Screen MRSA (PCR) (Negative) Coding Level of Care Code Critical Care 1st 30-74 mins Diagnoses Admitted to intensive care unit Z78.9 Hypoxia R09.02 Pulmonary edema J81.1 Tachycardia R00.0 Hypertension I10 Acute kidney injury N17.9 Elevated troponin R77.8 Cellulitis of left lower extremity L03.116 Sepsis A41.9 Sepsis acute organ dysfunction status: without acute organ dysfunction Sepsis type: sepsis due to unspecified organism Severe obstructive sleep apnea G47.33 (1) Sepsis Sepsis acute organ dysfunction status: without acute organ dysfunction Sepsis type: sepsis due to unspecified organism Qualified Code(s): A41.9 - Sepsis, unspecified organism
[2020-08-05] MEDS ORDERED: BUMETANIDE IV SCH (11:00)
[2020-08-05] MEDS ORDERED: DEXTROSE 5% IV SCH (11:00)
--- NOTE | 2020-08-05 11:10 | Podiatry Consultation ---
Date of Consultation August 05, 2020 Assessment & Plan (1) Diabetic foot ulcer with osteomyelitis: Patient has chronic osteomyelitis right foot treated successfully with 8 week IV abx. Third and Fourth interspace wounds still present. Reviewed CT scan of left foot. Patient may benifit from MRI or Bone Scan (preferably WBC labeled) to rule out OM of left foot fifth met. (2) Diabetic foot ulcer associated with type 2 diabetes mellitus: Left foot Ulcer evaluated at today's visit. Will add Santyl to daily dressing changes. WOUND CULTURES ARE AVIALABLE AND SENSITIVIES NOTED IN RESULTS OF THIS NOTE Manners in which pressure reduction could be achieved were investigated. Off- loading is a critical part of this patient's management. Factors which likely contribute to non-healing include: lack of adequate off-loading when supine, inadequately controlled infection, lack of adequate off-loading when ambulating, lack of adherence to diabetic footwear, a limited understanding of the disease of diabetes and its processes, lack of adherence to diabetic control measures. Diabetic foot ulcer location: toe Laterality: left Non-pressure ulcer stage: unspecified non-pressure ulcer stage Qualified Code(s): E11.621 - Type 2 diabetes mellitus with foot ulcer; L97.529 - Non-pressure chronic ulcer of other part of left foot with unspecified severity (3) Cellulitis of left foot: (4) Cellulitis of left lower extremity: History of Present Illness Attending Physician: Sai Gonzales History of Present Illness Patient is a type II diabetic 40 year old male seen at bedside. Patient relates he had trouble standing for weight bearing x-ray yesterday. Due to respiratory distress he was transfer to ICU. He is resting comfortably now. He relates t hese symptoms have mostly passed. He has O2 mask on chin and appears not to be utilizing it as intended. Allergies Allergy/AdvReac Type Severity Reaction Status Date / Time amoxicillin AdvReac Mild Gastrointestinal Verified 08/04/20 00:12 Upset Home Medications Medication Instructions Recorded Confirmed Type amlodipine 10 mg PO QAM 04/08/19 08/04/20 History atorvastatin 80 mg PO QAM 04/08/19 08/04/20 History alprazolam 1 mg tablet 1 mg PO DAILY PRN 10/14/19 08/04/20 History bupropion HCl 150 mg tablet,12 hr 150 mg PO QAM 10/14/19 08/04/20 History sustained-release pregabalin 100 mg capsule 100 mg PO BID 12/01/19 08/04/20 History lisinopril 40 mg PO HS 01/04/20 08/04/20 History multivitamin 1 tab PO QAM 01/04/20 08/04/20 History amitriptyline 25 mg PO HS 01/14/20 08/04/20 History carvedilol 6.25 mg tablet 12.5 mg PO BID tab 03/21/20 08/04/20 History insulin aspart U-100 100 unit/mL 0 unit SUBCUT TIDM ml 03/21/20 08/04/20 History (3 mL) subcutaneous pen icosapent ethyl [Vascepa] 2 g PO BID 04/13/20 08/04/20 History tamsulosin 0.4 mg PO HS #30 cap 04/26/20 08/04/20 Rx insulin glargine 100 unit/mL (3 54 unit SQ BID box 07/31/20 08/04/20 History mL) subcutaneous pen semaglutide 0.5 mg SUBCUT .weekly ml 07/31/20 08/04/20 History ibuprofen [Advil] 800 mg PO TID PRN 08/04/20 08/04/20 History Patient History Medical History Anemia due to chronic kidney disease Chronic diarrhea reason for colonoscopy Diabetic nephropathy associated with type 2 diabetes mellitus DM neuropathy, painful DM retinopathy Habitual snoring never had a sleep study test done Hidradenitis suppurativa HTN (hypertension) Hyperlipidemia Kidney stones Morbid obesity with BMI of 45.0-49.9, adult Obesity Proteinuria Uncontrolled type 2 diabetes mellitus Surgical History History of cardiac cath 2014 ?? 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 History of eye surgery left eye multiple before eye removal History of tooth extraction History of wisdom tooth extraction Status post epidural steroid injection Family History Mother No problems noted. Father , Age 60, [place] Myocardial infarction Unknown Charcot-Ana disease Neuropathy Brother Family history of diabetes mellitus Other No family history of adverse response to anesthesia No significant family history Social History Smoking Status: Never smoker Second Hand Exposure: No; Hx Alcohol Use: No Hx Substance Use: Yes Last Used Substance: Days (ago) Substance Use Type Other:: edibles for neuropathy Preferred Language: Syrian Communication Ability: Effective Building Custodial Supervisor Required: No Beliefs That Will Affect Care: None marital status: Current Living Situation: Spouse Current Living Situation Comment: Lives with spouse current occupational status: employed Other Information That Helps Us Care for You: No Feels Safe at Home: Yes Safety Concerns: Feels Safe At This Time Assistive Devices: CPAP, Glasses and Oxygen - Continuous Assistive Devices Comment: prosthetic left eye Review of Systems Constitutional: as per Subjective / HPI Patient denies symptoms. Eyes: Patient has one prosthetic eye Ear, Nose, Mouth, Throat: as per Subjective / HPI Respiratory: as per Subjective / HPI Cardiovascular: as per Subjective / HPI Gastrointestinal: as per Subjective / HPI Genitourinary: + as per Subjective / HPI Musculoskeletal: as per Subjective / HPI Integumentary: + non-healing lesions, + skin ulcer, + erythema and + change in skin color Neurologic: as per Subjective / HPI Psychiatric: as per Subjective / HPI Endocrine: as per Subjective / HPI Hematologic / Lymphatic: as per Subjective / HPI Allergy / Immunological: as per Subjective / HPI Physical Exam Constitutional: well developed, well nourished, cooperative, comfortable and + overweight ENMT: external ear and nose normal, oropharynx normal Neck: trachea midline, no thyromegaly Respiratory: normal respiratory effort Cardiovascular: Rate/Rhythm: regular rate and regular rhythm Chest (Breasts): Chest: normal inspection of chest Gastrointestinal (Abdomen): normal bowel sounds, soft, nontender, no hepatosplenomegaly Musculoskeletal: no cyanosis or clubbing, extremities motor strength 5/5 Neurologic: Motor/Sensory: + sensory deficit Psychiatric: Orientation: alert and oriented x 3 Lymphatic: no cervical or axillary lymphadenopathy Results & Data ([facility]) Vital Signs (Past 12 Hours) Vital Signs Temp Pulse Resp BP Pulse Ox 08/05/20 09:23 39.2 C H 115 H 26 H 125/77 99 08/05/20 08:14 39.0 C H 110 H 22 117/74 100 08/05/20 08:00 105 H 08/05/20 07:14 39.0 C H 108 H 22 126/75 100 08/05/20 03:43 38.8 C H 98 H 21 88/73 L 97 08/05/20 03:38 98 H 22 98 08/05/20 03:14 38.8 C H 98 H 21 100 08/05/20 03:13 38.8 C H 98 H 24 101/57 L 94 08/05/20 03:00 38.8 C H 102 H 26 H 94 08/05/20 02:00 38.9 C H 108 H 19 98 08/05/20 01:59 38.9 C H 109 H 21 100/64 97 08/05/20 01:54 39.0 C H 106 H 22 105/72 95 08/05/20 01:49 39.0 C H 107 H 22 106/69 94 08/05/20 01:44 39.0 C H 108 H 24 110/74 93 08/05/20 01:39 39.1 C H 109 H 22 103/71 96 08/05/20 01:34 39.1 C H 112 H 27 H 106/74 88 L 08/05/20 01:29 39.2 C H 112 H 25 H 118/72 94 08/05/20 01:24 39.2 C H 113 H 25 H 116/80 92 08/05/20 01:19 39.3 C H 112 H 25 H 114/76 96 08/05/20 01:14 39.3 C H 113 H 23 124/72 94 08/05/20 01:09 39.4 C H 114 H 25 H 120/76 94 08/05/20 01:04 39.5 C H 113 H 23 121/76 96 08/05/20 01:00 39.5 C H 114 H 22 91 08/05/20 00:59 39.5 C H 115 H 26 H 125/81 92 08/05/20 00:54 39.6 C H 115 H 25 H 120/80 92 08/05/20 00:49 39.6 C H 115 H 25 H 125/80 93 08/05/20 00:45 39.6 C H 116 H 25 H 93 08/05/20 00:44 39.6 C H 115 H 23 128/77 93 08/05/20 00:39 39.6 C H 116 H 24 117/82 94 08/05/20 00:34 39.6 C H 117 H 25 H 129/82 94 08/05/20 00:29 39.6 C H 118 H 26 H 146/87 H 95 08/05/20 00:24 39.6 C H 118 H 26 H 144/91 H 95 08/05/20 00:19 39.6 C H 118 H 27 H 140/93 96 08/05/20 00:14 39.6 C H 118 H 26 H 126/90 96 08/05/20 00:11 107 H 24 94 08/05/20 00:09 39.6 C H 117 H 25 H 139/85 96 08/05/20 00:04 39.5 C H 117 H 26 H 143/93 H 96 08/05/20 00:00 39.5 C H 117 H 27 H 97 08/04/20 23:59 39.5 C H 116 H 25 H 140/83 97 08/04/20 23:54 39.5 C H 116 H 26 H 128/86 93 08/04/20 23:49 39.5 C H 115 H 26 H 127/84 93 08/04/20 23:44 39.5 C H 116 H 26 H 144/89 H 93 08/04/20 23:39 39.5 C H 117 H 29 H 153/91 H 93 08/04/20 23:34 39.5 C H 119 H 19 149/89 H 98 08/04/20 23:29 39.4 C H 121 H 31 H 146/89 H 99 08/04/20 23:24 39.4 C H 119 H 27 H 150/98 H 98 08/04/20 23:19 39.4 C H 117 H 28 H 142/96 H 99 08/04/20 23:14 39.4 C H 118 H 31 H 138/93 99 08/04/20 23:09 39.3 C H 117 H 29 H 142/93 H 100 Gram Stain 2+ Gram Positive Cocci No Polys Seen Culture 4+ Klebsiella oxytoca 4+ Enterobacter cloacae complex 4+ STREPTOCOCCUS DYSGALACTIAE 4+ Normal Skin Yue Report Pending Organism 4+ Klebsiella oxytoca Organism 4+ Enterobacter cloacae complex Resulting Agency [facility] Susceptibility 4+ enterobacter cloacae complex (microscan greta-ug/ml (kody)) Not Specified Amikacin <=16 Sensitive Amoxicillin/Clavulanate >16/8 Resistant Ampicillin >16 Resistant Ampicillin/Sulbactam 8/4 Resistant Aztreonam <=4 Sensitive Cefazolin >16 Resistant Cefepime <=2 Sensitive Cefotaxime >32 Resistant Cefoxitin >16 Resistant Ceftazidime <=1 Sensitive Ceftriaxone <=1 Sensitive Cefuroxime 8 Resistant Ciprofloxacin <=0.25 Sensitive Ertapenem <=0.5 Sensitive Gentamicin <=2 Sensitive Imipenem <=1 Sensitive Levofloxacin <=0.5 Sensitive Meropenem <=1 Sensitive Minocycline <=4 Sensitive Moxifloxacin <=2 Sensitive Piperacillin/Tazobactam <=8 Sensitive Sulfa/Trimethoprim <=0.5/9.5 Sensitive Tetracycline <=4 Sensitive Tobramycin <=2 Sensitive Susceptibility 4+ klebsiella oxytoca (microscan greta-ug/ml (kody)) Not Specified Amikacin <=16 Sensitive Amoxicillin/Clavulanate <=8/4 Sensitive Ampicillin 16 Resistant Ampicillin/Sulbactam <=4/2 Sensitive Aztreonam <=4 Sensitive Cefazolin 8 Sensitive Cefoxitin <=8 Sensitive Ciprofloxacin <=0.25 Sensitive Ertapenem <=0.5 Sensitive Gentamicin <=2 Sensitive Imipenem <=1 Sensitive Levofloxacin <=0.5 Sensitive Meropenem <=1 Sensitive Minocycline <=4 Sensitive Moxifloxacin <=2 Sensitive Piperacillin/Tazobactam <=8 Sensitive Sulfa/Trimethoprim <=0.5/9.5 Sensitive Tetracycline <=4 Sensitive Tobramycin <=2 Sensitive Specimen Collected: 08/03/20 6:12 PM Last Resulted: 08/05/20 12:30 PM
[2020-08-05] MEDS: COLLAGENASE OINT 30 GM TUBE EXT SCH (11:46)
[2020-08-05] MEDS: BUMETANIDE 10 MG in DEXTROSE 5% 10 ML IV SCH (11:46)
--- NOTE | 2020-08-05 12:40 | Hospitalist Progress Note ---
Date of Service August 05, 2020 Assessment & Plan (1) Bacteremia due to Gram-positive bacteria: 2nd group G strep. source - cellulitis of LLE along with infected left foot plantar diabetic ulcer. ?osteomyelitis of this ulcer based on CT. Remains on zosyn until cultures are final. Daptomycin 1 more day - can stop if MRSA or enterococcus is not isolated in any bottle. Repeat blood cultures 08/04 thus far negative. Echo, although limited, without signs of obvious valvular vegetations. Thus far has not required pressor support for his bacteremia/septicemia/severe sepsis. (2) Diabetic foot ulcer associated with type 2 diabetes mellitus: Left 5th metatarsal head diabetic foot ulcer with cellulitis of the left lower extremity. Positive blood cultures for group G strep - thus, this is likely pathogen causing the infection in ulcer/LLE. Continue zosyn/daptomycin as above. I obtained a CT of the left tib-fib - no signs of deeper infection (nec fasc, abscess, etc). CT of left foot - some concern for osteomyelitis of 5th metatarsal head region. Ultimately to need MRI but still too unstable for such at this time. Continue local wound care. Podiatry consult appreciated. Continue IV antibiotics. (3) Cellulitis of left lower extremity: As above this looks better today (4) Acute kidney injury: Baseline Creatinine about 2.5 to 2.8. Now >5 Likely ATN from septicemia/bacteremia. No evidence of obstruction. Cont preston. nephro consult appreciated. fortunately he is making good urine with his bumex infusion. serial bmps. (5) Acute respiratory failure with hypoxia and hypercapnia: 2nd to pulmonary edema and/or pneumonia. both being treated - bumex infusion; zosyn for LLE cellulitis/bacteremia will suffice for latter, if present. BIPAP worn overnight with improvement in pulmonary symptoms and improved oxygenation. continue supportive care. (6) Acute pulmonary edema: Clinically and radiographically. Diuresis with bumex infusion. Echo with low-normal EF 50-55%. IVC dilated. (7) SVT (supraventricular tachycardia): Prior to transfer to ICU he was having sinus tach interspersed with either atrial tachycardia or even a 2:1 atrial flutter. He had not responded to IV or PO beta blockers. He was placed on cardizem infusion. This helped rate control. His fever certainly worsened his HRs. This am he is in NSR with HR<100. Echo noted. TSH wnl. He is on heparin infusion to cover for possibility of VTE. If he had a flutter then stroke risk is reduced with the heparin. (8) Severe obstructive sleep apnea: Was scheduled to get sleep study in the near-future as outpatient. Did use BIPAP overnight & indeed tolerated it. Cont HS use and with long naps or any distress. (9) Hypomagnesemia: 1.4 at presentation. Replaced at admission. Now normal. (10) Chronic kidney disease, stage IV (severe): baseline Cr 2.5 to 2.8. now with BJ/ARF. see above. (11) HTN (hypertension): Continue coreg. Hold CARMEN given his BJ. Hold Amlodipine. Cardizem infusion now on hold due to low-normal or low BPs. (12) Uncontrolled type 2 diabetes mellitus: Hold semaglutide. a1c >8%. novolog coverage. ICU glycemic protocol in place. (13) Mixed hyperlipidemia: hold Lipitor 80 mg daily (14) BPH loc w urin obs/LUTS: hold tamsulosin due to preston and BPs low-normal (15) Diabetic nephropathy associated with type 2 diabetes mellitus: Continue pregabalin but lower to 50 mg p.o. twice daily due to worsening renal function (16) Elevated troponin: Likely myocardial demand ischemia in setting of bacteremia, ? a tach vs a flutter vs other, serious illness. Can't fully rule out an ACS but much less likely. He hasn't had obvious ischemic type symptoms. (17) Morbid obesity with BMI of 45.0-49.9, adult: BMI 48 (18) DVT prophylaxis: heparin infusion - see above (19) Multiorgan failure: remains critically ill with worsening ARF 2nd sepsis-associated ATN, severe sepsis/bacteremia with ongoing fever, etc extensively updated by phone this evening as well as last night questions answered Admission and Anticipated Discharge Date Admission Date: August 03, 2020 Subjective overnight events reviewed he was compliant with BIPAP through the night switched to oxymask this am patient reports he overall is more comfortable with less dyspnea today left leg still sore but not as bad feels a bit stronger today and did eat breakfast sitting up at the side of bed diltiazem drip ultimately d/c overnight due to hypotension tele this am - NSR, rates 90s Review of Systems Constitutional: + fever, + fatigue and + anorexia (But improved ) Respiratory: + dyspnea on exertion; no cough Cardiovascular: + dyspnea on exertion; no chest pain, no dyspnea at rest and no orthopnea Gastrointestinal: no abdominal pain Physical Exam 2 Constitutional: + morbidly obese; no acute distress and no altered mental status ENMT: Mouth: + dry oral mucous membranes Respiratory: no respiratory distress and does not use accessory muscles Auscultation: + diminished lung sounds (Bases) and + crackles; no wheezes (Resolved today ) Cardiovascular: Rate/Rhythm: regular rate and regular rhythm Heart Sounds: normal S1 and normal S2; no murmur Vessels: posterior tibial pulses present and dorsalis pedis pulses present; no JVD Extremities: + edema (2+ on left, <1+ on right ) Gastrointestinal (Abdomen): normal bowel sounds, soft, nontender, no he patosplenomegaly Skin: + rash (Stasis dermatitis LLE longoria; cellulitis - LLE - improved ) Psychiatric: Orientation: alert (But falls asleep easily ) and oriented x 3 Results & Data Results & Data ([facility]) Vital Signs (Past 12 Hours) Vital Signs Temp Pulse Resp BP Pulse Ox 08/05/20 09:23 39.2 C H 115 H 26 H 125/77 99 08/05/20 08:14 39.0 C H 110 H 22 117/74 100 08/05/20 08:00 105 H 08/05/20 07:14 39.0 C H 108 H 22 126/75 100 08/05/20 03:43 38.8 C H 98 H 21 88/73 L 97 08/05/20 03:38 98 H 22 98 08/05/20 03:14 38.8 C H 98 H 21 100 08/05/20 03:13 38.8 C H 98 H 24 101/57 L 94 08/05/20 03:00 38.8 C H 102 H 26 H 94 08/05/20 02:00 38.9 C H 108 H 19 98 08/05/20 01:59 38.9 C H 109 H 21 100/64 97 08/05/20 01:54 39.0 C H 106 H 22 105/72 95 08/05/20 01:49 39.0 C H 107 H 22 106/69 94 08/05/20 01:44 39.0 C H 108 H 24 110/74 93 08/05/20 01:39 39.1 C H 109 H 22 103/71 96 08/05/20 01:34 39.1 C H 112 H 27 H 106/74 88 L 08/05/20 01:29 39.2 C H 112 H 25 H 118/72 94 08/05/20 01:24 39.2 C H 113 H 25 H 116/80 92 08/05/20 01:19 39.3 C H 112 H 25 H 114/76 96 08/05/20 01:14 39.3 C H 113 H 23 124/72 94 08/05/20 01:09 39.4 C H 114 H 25 H 120/76 94 08/05/20 01:04 39.5 C H 113 H 23 121/76 96 08/05/20 01:00 39.5 C H 114 H 22 91 08/05/20 00:59 39.5 C H 115 H 26 H 125/81 92 08/05/20 00:54 39.6 C H 115 H 25 H 120/80 92 08/05/20 00:49 39.6 C H 115 H 25 H 125/80 93 08/05/20 00:45 39.6 C H 116 H 25 H 93 08/05/20 00:44 39.6 C H 115 H 23 128/77 93 Laboratory Results Laboratory Results - last 24 hr 08/04/20 08/04/20 08/04/20 16:26 18:43 18:48 WBC RBC Hgb Hct MCV MCH MCHC RDW Std Deviation RDW Coeff of Nicky Plt Count MPV Immature Gran % (Auto) Neut % (Auto) Lymph % (Auto) Heard % (Auto) Eos % (Auto) Baso % (Auto) Neut # (Auto) Lymph # (Auto) Heard # (Auto) Eos # (Auto) Baso # (Auto) Immature Gran # (Auto) PT INR APTT PTT Ratio VBG pH VBG pCO2 VBG pO2 VBG HCO3 VBG O2 Saturation VBG Base Excess Barometric Pressure Sodium Potassium Chloride Carbon Dioxide Anion Gap BUN Creatinine Est Cr Clr Drug Dosing Est GFR ( Amer) Est GFR (Non-Af Amer) BUN/Creatinine Ratio Glucose POC Glucose 171 H Lactate Calcium Phosphorus Magnesium Cancelled Total Bilirubin AST ALT Alkaline Phosphatase Total Creatine Kinase Troponin I NT-Pro-B Natriuret Pep Total Protein Albumin Globulin Albumin/Globulin Ratio Procalcitonin TSH Cancelled Nasal Screen MRSA (PCR) Negative 08/04/20 08/04/20 08/04/20 18:48 18:48 18:48 WBC RBC Hgb Hct MCV MCH MCHC RDW Std Deviation RDW Coeff of Nicky Plt Count MPV Immature Gran % (Auto) Neut % (Auto) Lymph % (Auto) Heard % (Auto) Eos % (Auto) Baso % (Auto) Neut # (Auto) Lymph # (Auto) Heard # (Auto) Eos # (Auto) Baso # (Auto) Immature Gran # (Auto) PT INR APTT PTT Ratio VBG pH 7.29 L VBG pCO2 49 VBG pO2 26 VBG HCO3 23 VBG O2 Saturation < 60.0 VBG Base Excess -3.9 Barometric Pressure 734.5 Sodium 135 L Potassium 5.0 Chloride 108 H Carbon Dioxide 24 Anion Gap 3.0 BUN 40 H Creatinine 3.61 H D Est Cr Clr Drug Dosing 42.6 Est GFR ( Amer) 23.0 Est GFR (Non-Af Amer) 19.9 BUN/Creatinine Ratio 10.9 Glucose 173 H POC Glucose Lactate Calcium 8.3 L Phosphorus Magnesium 1.9 Total Bilirubin AST ALT Alkaline Phosphatase Total Creatine Kinase 439 H Cancelled Troponin I 0.279 H* NT-Pro-B Natriuret Pep Total Protein Albumin Globulin Albumin/Globulin Ratio Procalcitonin TSH 0.923 Nasal Screen MRSA (PCR) 08/04/20 08/04/20 08/04/20 20:25 20:25 20:53 WBC RBC Hgb Hct MCV MCH MCHC RDW Std Deviation RDW Coeff of Nicky Plt Count MPV Immature Gran % (Auto) Neut % (Auto) Lymph % (Auto) Heard % (Auto) Eos % (Auto) Baso % (Auto) Neut # (Auto) Lymph # (Auto) Heard # (Auto) Eos # (Auto) Baso # (Auto) Immature Gran # (Auto) PT 10.3 INR 1.0 APTT 28.2 PTT Ratio 1.1 VBG pH VBG pCO2 VBG pO2 VBG HCO3 VBG O2 Saturation VBG Base Excess Barometric Pressure Sodium Potassium Chloride Carbon Dioxide Anion Gap BUN Creatinine Est Cr Clr Drug Dosing Est GFR ( Amer) Est GFR (Non-Af Amer) BUN/Creatinine Ratio Glucose POC Glucose 124 H Lactate 1.6 Calcium Phosphorus Magnesium Total Bilirubin AST ALT Alkaline Phosphatase Total Creatine Kinase Troponin I NT-Pro-B Natriuret Pep Total Protein Albumin Globulin Albumin/Globulin Ratio Procalcitonin TSH Nasal Screen MRSA (PCR) 08/05/20 08/05/20 08/05/20 02:56 02:56 02:56 WBC 16.04 H RBC 3.90 L Hgb 10.9 L Hct 33.7 L MCV 86.4 MCH 27.9 MCHC 32.3 RDW Std Deviation 44.1 RDW Coeff of Nicky 14.0 Plt Count 219 MPV 11.3 H Immature Gran % (Auto) 0.4 Neut % (Auto) 80.5 Lymph % (Auto) 14.6 Heard % (Auto) 4.2 Eos % (Auto) 0.1 Baso % (Auto) 0.2 Neut # (Auto) 12.93 H Lymph # (Auto) 2.34 Heard # (Auto) 0.67 H Eos # (Auto) 0.01 Baso # (Auto) 0.03 Immature Gran # (Auto) 0.06 H PT INR APTT 39.5 H PTT Ratio 1.5 VBG pH VBG pCO2 VBG pO2 VBG HCO3 VBG O2 Saturation VBG Base Excess Barometric Pressure Sodium 135 L Potassium 4.5 Chloride 108 H Carbon Dioxide 21 Anion Gap 6.0 BUN 42 H Creatinine 4.28 H D Est Cr Clr Drug Dosing 36.0 Est GFR ( Amer) 18.7 Est GFR (Non-Af Amer) 16.2 BUN/Creatinine Ratio 9.8 L Glucose 123 H POC Glucose Lactate Calcium 7.6 L Phosphorus 3.9 Magnesium 1.6 L Total Bilirubin 0.4 AST 30 ALT 22 Alkaline Phosphatase 77 Total Creatine Kinase Troponin I NT-Pro-B Natriuret Pep Total Protein 6.6 Albumin 1.9 L Globulin 4.7 H Albumin/Globulin Ratio 0.4 L Procalcitonin TSH Nasal Screen MRSA (PCR) 08/05/20 08/05/20 08/05/20 02:56 04:48 07:48 WBC RBC Hgb Hct MCV MCH MCHC RDW Std Deviation RDW Coeff of Nicky Plt Count MPV Immature Gran % (Auto) Neut % (Auto) Lymph % (Auto) Heard % (Auto) Eos % (Auto) Baso % (Auto) Neut # (Auto) Lymph # (Auto) Heard # (Auto) Eos # (Auto) Baso # (Auto) Immature Gran # (Auto) PT INR APTT PTT Ratio VBG pH VBG pCO2 VBG pO2 VBG HCO3 VBG O2 Saturation VBG Base Excess Barometric Pressure Sodium Potassium Chloride Carbon Dioxide Anion Gap BUN Creatinine Est Cr Clr Drug Dosing Est GFR ( Amer) Est GFR (Non-Af Amer) BUN/Creatinine Ratio Glucose POC Glucose 142 H Lactate Calcium Phosphorus Magnesium Total Bilirubin AST ALT Alkaline Phosphatase Total Creatine Kinase Troponin I 0.284 H* NT-Pro-B Natriuret Pep 2831 H Total Protein Albumin Globulin Albumin/Globulin Ratio Procalcitonin 1.70 H TSH Nasal Screen MRSA (PCR) 08/05/20 08/05/20 09:31 11:29 WBC RBC Hgb Hct MCV MCH MCHC RDW Std Deviation RDW Coeff of Nicky Plt Count MPV Immature Gran % (Auto) Neut % (Auto) Lymph % (Auto) Heard % (Auto) Eos % (Auto) Baso % (Auto) Neut # (Auto) Lymph # (Auto) Heard # (Auto) Eos # (Auto) Baso # (Auto) Immature Gran # (Auto) PT INR APTT 42.5 H PTT Ratio 1.6 VBG pH VBG pCO2 VBG pO2 VBG HCO3 VBG O2 Saturation VBG Base Excess Barometric Pressure Sodium Potassium Chloride Carbon Dioxide Anion Gap BUN Creatinine Est Cr Clr Drug Dosing Est GFR ( Amer) Est GFR (Non-Af Amer) BUN/Creatinine Ratio Glucose POC Glucose 170 H Lactate Calcium Phosphorus Magnesium Total Bilirubin AST ALT Alkaline Phosphatase Total Creatine Kinase Troponin I NT-Pro-B Natriuret Pep Total Protein Albumin Globulin Albumin/Globulin Ratio Procalcitonin TSH Nasal Screen MRSA (PCR) PG Care Time/CCT Total # of Minutes Spent Total Time Spent with Patient: Total time spent is greater than 50% in coordination of care (as documented) at patient's floor/unit and/or counseling patient: Coding Level of Care Code 17203 Subseq Hosp Care Lvl 3 Diagnoses Bacteremia due to Gram-positive bacteria R78.81 Diabetic foot ulcer associated with type 2 diabetes mellitus E11.621; L97.529 Diabetic foot ulcer location: toe Laterality: left Non-pressure ulcer stage: unspecified non-pressure ulcer stage Cellulitis of left lower extremity L03.116 Acute kidney injury N17.9 Acute respiratory failure with hypoxia and hypercapnia J96.01; J96.02 Acute pulmonary edema J81.0 SVT (supraventricular tachycardia) I47.1 Severe obstructive sleep apnea G47.33 Hypomagnesemia E83.42 Chronic kidney disease, stage IV (severe) N18.4 HTN (hypertension) I10 Hypertension type: essential hypertension Uncontrolled type 2 diabetes mellitus E11.65 Glycemic state: with hyperglycemia Mixed hyperlipidemia E78.2 BPH loc w urin obs/LUTS N40.1 Diabetic nephropathy associated with type 2 diabetes mellitus E11.21 Elevated troponin R77.8 Morbid obesity with BMI of 45.0-49.9, adult E66.01; Z68.42 DVT prophylaxis Z29.9 Multiorgan failure (1) Diabetic foot ulcer associated with type 2 diabetes mellitus Diabetic foot ulcer location: toe Laterality: left Non-pressure ulcer stage: unspecified non-pressure ulcer stage Qualified Code(s): E11.621 - Type 2 diabetes mellitus with foot ulcer; L97.529 - Non-pressure chronic ulcer of other part of left foot with unspecified severity (2) Uncontrolled type 2 diabetes mellitus Glycemic state: with hyperglycemia Qualified Code(s): E11.65 - Type 2 diabetes mellitus with hyperglycemia (3) HTN (hypertension) Hypertension type: essential hypertension Qualified Code(s): I10 - Essential (primary) hypertension
--- NOTE | 2020-08-05 14:29 | Nephrology Consultation ---
Date of Consultation August 05, 2020 Assessment & Plan (1) Acute kidney injury: Non-oliguric. Urine microscopy acellular. Patten draining clear yellow urine. Kidney imaging deferred. Clinical presentation consistent with ATN. Electrolytes acceptable. Adequate urine output. No overt uremic symptoms. No emergent indication for dialysis. Potential indications for MALE INFERTILITY SPECIALIST discussed with Lex. Lex is agreeable to IHD if indicated. Document I/O's. Monitor metabolic profile q 12 hours on Bumex gtt. Medications appropriately dosed for kidney dysfunction. CK 439 (monitor on dapto). 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 CKD IV A3. Baseline creatinine 2.5- 3.0 mg/dL. Will require close outpatient follow up. High risk for (3) Pulmonary edema: CXR personally reviewed. Noted R>L opacity. Non-oliguric. O2 requirement slightly improved. Document strict I/O's. Low sodium diet. Bumex gtt to encourage negative fluid balance >1 L/d. (4) Hypertension: Hypotensive in setting of sepsis on admission. Antihypertensives held. Continue to hold lisinopril (CARMEN/ARB) in setting of BJ. (5) Sepsis: Podiatry consultation reviewed. Remains on Zosyn + dapto. Blood GPC's with sensitivities pending. History of Present Illness Reason for Consultation: BJ/CKD Attending Physician: Sai Gonzales History of Present Illness Mr. Lex Manzano is a 40-year-old male with insulin-dependent diabetes and chronic kidney disease IV A3. 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 I met Lex in April 2020 when he was admitted to [facility]. Lex had BJ on advanced CKD at that time in the setting of infected diabetic wound with osteomyelitis. BJ attributed to ATN. Creatinine at baseline has been 2.5-3.0 mg/dL. Lex has A3 proteinuria. He did have some evidence of urinary retention without hydronephrosis during the admission. This was treated with Flomax. The possibility of hemodialysis was discussed in April but thankfully avoided at the time. Outpatient follow up was arranged but unfortunately Lex missed these appointments. Medical history is also notable for diabetic neuropathy, retinopathy, hypertension, hyperlipidemia, obesity, and chronic diabetic ulcer with osteomyelitis. He was hospitalized from 04/13-04/26/20 for this infection. Lex was refereed to the emergency department on 08/03 by his epic prelude analyst for evaluation of infection. He was admitted with sepsis and transferred to the ICU yesterday with hypoxia associated with pulmonary edema. Lex remains febrile. Blood cultures growing GPC in chains. He is being treated with Zosyn and Daptomycin. No plan for surgical intervention at this time. Bumex gtt started in the ICU earlier today. Lex is non-oliguric. He reports improvement in breathing. He was laying flat and resting comfortably during my assessment. I discussed the plan of care with Dr. Barnes and the ICU team today. Allergies Allergy/AdvReac Type Severity Reaction Status Date / Time amoxicillin AdvReac Mild Gastrointestinal Verified 08/04/20 00:12 Upset Home Medications Medication Instructions Recorded Confirmed Type amlodipine 10 mg PO QAM 04/08/19 08/04/20 History atorvastatin 80 mg PO QAM 04/08/19 08/04/20 History alprazolam 1 mg tablet 1 mg PO DAILY PRN 10/14/19 08/04/20 History bupropion HCl 150 mg tablet,12 hr 150 mg PO QAM 10/14/19 08/04/20 History sustained-release pregabalin 100 mg capsule 100 mg PO BID 12/01/19 08/04/20 History lisinopril 40 mg PO HS 01/04/20 08/04/20 History multivitamin 1 tab PO QAM 01/04/20 08/04/20 History amitriptyline 25 mg PO HS 01/14/20 08/04/20 History carvedilol 6.25 mg tablet 12.5 mg PO BID tab 03/21/20 08/04/20 History insulin aspart U-100 100 unit/mL 0 unit SUBCUT TIDM ml 03/21/20 08/04/20 History (3 mL) subcutaneous pen icosapent ethyl [Vascepa] 2 g PO BID 04/13/20 08/04/20 History tamsulosin 0.4 mg PO HS #30 cap 04/26/20 08/04/20 Rx insulin glargine 100 unit/mL (3 54 unit SQ BID box 07/31/20 08/04/20 History mL) subcutaneous pen semaglutide 0.5 mg SUBCUT .weekly ml 07/31/20 08/04/20 History ibuprofen [Advil] 800 mg PO TID PRN 08/04/20 08/04/20 History Patient History Medical History Anemia due to chronic kidney disease Chronic diarrhea reason for colonoscopy Diabetic nephropathy associated with type 2 diabetes mellitus DM neuropathy, painful DM retinopathy Habitual snoring never had a sleep study test done Hidradenitis suppurativa HTN (hypertension) Hyperlipidemia Kidney stones Morbid obesity with BMI of 45.0-49.9, adult Obesity Proteinuria Uncontrolled type 2 diabetes mellitus Surgical History History of cardiac cath 2014 ?? 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 History of eye surgery left eye multiple before eye removal History of tooth extraction History of wisdom tooth extraction Status post epidural steroid injection Family History Mother No problems noted. Father , Age 60, [place] Myocardial infarction Unknown Charcot-Ana disease Neuropathy Brother Family history of diabetes mellitus Other No family history of adverse response to anesthesia No significant family history Social History Smoking Status: Never smoker Second Hand Exposure: No; Hx Alcohol Use: No Hx Substance Use: Yes Last Used Substance: Days (ago) Substance Use Type Other:: edibles for neuropathy Preferred Language: French Communication Ability: Effective E Commerce Analyst Required: No Beliefs That Will Affect Care: None marital status: Current Living Situation: Spouse Current Living Situation Comment: Lives with spouse current occupational status: employed Other Information That Helps Us Care for You: No Feels Safe at Home: Yes Safety Concerns: Feels Safe At This Time Assistive Devices: CPAP, Glasses and Oxygen - Continuous Assistive Devices Comment: prosthetic left eye Review of Systems Review of Systems: All systems reviewed & are unremarkable except as noted in HPI & below Physical Exam Constitutional: + morbidly obese; no acute distress Eyes: + anicteric sclerae; no corneal abnormality ENMT: Mouth: no oral mucosal abnormality and oral mucous membranes not dry Neck: normal visual inspection, trachea midline and + thick neck Respiratory: normal respiratory effort Auscultation: + diminished lung sounds and + rales Cardiovascular: Rate/Rhythm: + tachycardic Heart Sounds: normal S1 and normal S2 Extremities: + edema Gastrointestinal (Abdomen): Percussion/Palpation: abdomen soft; abdomen nontender Musculoskeletal: Extremities: no cyanosis and no clubbing Skin: normal turgor; no lesions Neurologic: Motor/Sensory: no tremor and no asterixis Psychiatric: Orientation: alert and oriented x 3 Results & Data ([facility]) Vital Signs (Past 12 Hours) Vital Signs Temp Pulse Resp BP Pulse Ox 08/05/20 09:23 39.2 C H 115 H 26 H 125/77 99 08/05/20 08:14 39.0 C H 110 H 22 117/74 100 08/05/20 08:00 105 H 08/05/20 07:14 39.0 C H 108 H 22 126/75 100 08/05/20 03:43 38.8 C H 98 H 21 88/73 L 97 08/05/20 03:38 98 H 22 98 08/05/20 03:14 38.8 C H 98 H 21 100 08/05/20 03:13 38.8 C H 98 H 24 101/57 L 94 08/05/20 03:00 38.8 C H 102 H 26 H 94 Laboratory Results Laboratory Results - last 24 hr 08/04/20 08/04/20 08/04/20 16:26 18:43 18:48 WBC RBC Hgb Hct MCV MCH MCHC RDW Std Deviation RDW Coeff of Nicky Plt Count MPV Immature Gran % (Auto) Neut % (Auto) Lymph % (Auto) [place] % (Auto) Eos % (Auto) Baso % (Auto) Neut # (Auto) Lymph # (Auto) [place] # (Auto) Eos # (Auto) Baso # (Auto) Immature Gran # (Auto) PT INR APTT PTT Ratio VBG pH VBG pCO2 VBG pO2 VBG HCO3 VBG O2 Saturation VBG Base Excess Barometric Pressure Sodium Potassium Chloride Carbon Dioxide Anion Gap BUN Creatinine Est Cr Clr Drug Dosing Est GFR ( Amer) Est GFR (Non-Af Amer) BUN/Creatinine Ratio Glucose POC Glucose 171 H Lactate Calcium Phosphorus Magnesium Cancelled Total Bilirubin AST ALT Alkaline Phosphatase Total Creatine Kinase Troponin I NT-Pro-B Natriuret Pep Total Protein Albumin Globulin Albumin/Globulin Ratio Procalcitonin TSH Cancelled Nasal Screen MRSA (PCR) Negative 08/04/20 08/04/20 08/04/20 18:48 18:48 18:48 WBC RBC Hgb Hct MCV MCH MCHC RDW Std Deviation RDW Coeff of Nicky Plt Count MPV Immature Gran % (Auto) Neut % (Auto) Lymph % (Auto) [place] % (Auto) Eos % (Auto) Baso % (Auto) Neut # (Auto) Lymph # (Auto) [place] # (Auto) Eos # (Auto) Baso # (Auto) Immature Gran # (Auto) PT INR APTT PTT Ratio VBG pH 7.29 L VBG pCO2 49 VBG pO2 26 VBG HCO3 23 VBG O2 Saturation < 60.0 VBG Base Excess -3.9 Barometric Pressure 734.5 Sodium 135 L Potassium 5.0 Chloride 108 H Carbon Dioxide 24 Anion Gap 3.0 BUN 40 H Creatinine 3.61 H D Est Cr Clr Drug Dosing 42.6 Est GFR ( Amer) 23.0 Est GFR (Non-Af Amer) 19.9 BUN/Creatinine Ratio 10.9 Glucose 173 H POC Glucose Lactate Calcium 8.3 L Phosphorus Magnesium 1.9 Total Bilirubin AST ALT Alkaline Phosphatase Total Creatine Kinase 439 H Cancelled Troponin I 0.279 H* NT-Pro-B Natriuret Pep Total Protein Albumin Globulin Albumin/Globulin Ratio Procalcitonin TSH 0.923 Nasal Screen MRSA (PCR) 08/04/20 08/04/20 08/04/20 20:25 20:25 20:53 WBC RBC Hgb Hct MCV MCH MCHC RDW Std Deviation RDW Coeff of Nicky Plt Count MPV Immature Gran % (Auto) Neut % (Auto) Lymph % (Auto) [place] % (Auto) Eos % (Auto) Baso % (Auto) Neut # (Auto) Lymph # (Auto) [place] # (Auto) Eos # (Auto) Baso # (Auto) Immature Gran # (Auto) PT 10.3 INR 1.0 APTT 28.2 PTT Ratio 1.1 VBG pH VBG pCO2 VBG pO2 VBG HCO3 VBG O2 Saturation VBG Base Excess Barometric Pressure Sodium Potassium Chloride Carbon Dioxide Anion Gap BUN Creatinine Est Cr Clr Drug Dosing Est GFR ( Amer) Est GFR (Non-Af Amer) BUN/Creatinine Ratio Glucose POC Glucose 124 H Lactate 1.6 Calcium Phosphorus Magnesium Total Bilirubin AST ALT Alkaline Phosphatase Total Creatine Kinase Troponin I NT-Pro-B Natriuret Pep Total Protein Albumin Globulin Albumin/Globulin Ratio Procalcitonin TSH Nasal Screen MRSA (PCR) 08/05/20 08/05/20 08/05/20 02:56 02:56 02:56 WBC 16.04 H RBC 3.90 L Hgb 10.9 L Hct 33.7 L MCV 86.4 MCH 27.9 MCHC 32.3 RDW Std Deviation 44.1 RDW Coeff of Nicky 14.0 Plt Count 219 MPV 11.3 H Immature Gran % (Auto) 0.4 Neut % (Auto) 80.5 Lymph % (Auto) 14.6 [place] % (Auto) 4.2 Eos % (Auto) 0.1 Baso % (Auto) 0.2 Neut # (Auto) 12.93 H Lymph # (Auto) 2.34 [place] # (Auto) 0.67 H Eos # (Auto) 0.01 Baso # (Auto) 0.03 Immature Gran # (Auto) 0.06 H PT INR APTT 39.5 H PTT Ratio 1.5 VBG pH VBG pCO2 VBG pO2 VBG HCO3 VBG O2 Saturation VBG Base Excess Barometric Pressure Sodium 135 L Potassium 4.5 Chloride 108 H Carbon Dioxide 21 Anion Gap 6.0 BUN 42 H Creatinine 4.28 H D Est Cr Clr Drug Dosing 36.0 Est GFR ( Amer) 18.7 Est GFR (Non-Af Amer) 16.2 BUN/Creatinine Ratio 9.8 L Glucose 123 H POC Glucose Lactate Calcium 7.6 L Phosphorus 3.9 Magnesium 1.6 L Total Bilirubin 0.4 AST 30 ALT 22 Alkaline Phosphatase 77 Total Creatine Kinase Troponin I NT-Pro-B Natriuret Pep Total Protein 6.6 Albumin 1.9 L Globulin 4.7 H Albumin/Globulin Ratio 0.4 L Procalcitonin TSH Nasal Screen MRSA (PCR) 08/05/20 08/05/20 08/05/20 02:56 04:48 07:48 WBC RBC Hgb Hct MCV MCH MCHC RDW Std Deviation RDW Coeff of Nicky Plt Count MPV Immature Gran % (Auto) Neut % (Auto) Lymph % (Auto) [place] % (Auto) Eos % (Auto) Baso % (Auto) Neut # (Auto) Lymph # (Auto) [place] # (Auto) Eos # (Auto) Baso # (Auto) Immature Gran # (Auto) PT INR APTT PTT Ratio VBG pH VBG pCO2 VBG pO2 VBG HCO3 VBG O2 Saturation VBG Base Excess Barometric Pressure Sodium Potassium Chloride Carbon Dioxide Anion Gap BUN Creatinine Est Cr Clr Drug Dosing Est GFR ( Amer) Est GFR (Non-Af Amer) BUN/Creatinine Ratio Glucose POC Glucose 142 H Lactate Calcium Phosphorus Magnesium Total Bilirubin AST ALT Alkaline Phosphatase Total Creatine Kinase Troponin I 0.284 H* NT-Pro-B Natriuret Pep 2831 H Total Protein Albumin Globulin Albumin/Globulin Ratio Procalcitonin 1.70 H TSH Nasal Screen MRSA (PCR) 08/05/20 08/05/20 09:31 11:29 WBC RBC Hgb Hct MCV MCH MCHC RDW Std Deviation RDW Coeff of Nicky Plt Count MPV Immature Gran % (Auto) Neut % (Auto) Lymph % (Auto) [place] % (Auto) Eos % (Auto) Baso % (Auto) Neut # (Auto) Lymph # (Auto) [place] # (Auto) Eos # (Auto) Baso # (Auto) Immature Gran # (Auto) PT INR APTT 42.5 H PTT Ratio 1.6 VBG pH VBG pCO2 VBG pO2 VBG HCO3 VBG O2 Saturation VBG Base Excess Barometric Pressure Sodium Potassium Chloride Carbon Dioxide Anion Gap BUN Creatinine Est Cr Clr Drug Dosing Est GFR ( Amer) Est GFR (Non-Af Amer) BUN/Creatinine Ratio Glucose POC Glucose 170 H Lactate Calcium Phosphorus Magnesium Total Bilirubin AST ALT Alkaline Phosphatase Total Creatine Kinase Troponin I NT-Pro-B Natriuret Pep Total Protein Albumin Globulin Albumin/Globulin Ratio Procalcitonin TSH Nasal Screen MRSA (PCR) PG Care Time/CCT Total # of Minutes Spent Total Time Spent with Patient: Total time spent is greater than 50% in coordination of care (as documented) at patient's floor/unit and/or counseling patient: Coding Level of Care Code 32060 Inpt Consult Level 5 Diagnoses Acute kidney injury N17.9 Chronic kidney disease, stage IV (severe) N18.4 Pulmonary edema J81.1 Hypertension I10 Sepsis A41.9 Sepsis acute organ dysfunction status: without acute organ dysfunction Sepsis type: sepsis due to unspecified organism (1) Sepsis Sepsis acute organ dysfunction status: without acute organ dysfunction Sepsis type: sepsis due to unspecified organism Qualified Code(s): A41.9 - Sepsis, unspecified organism
[2020-08-05 17:13] LABS: Partial Thromboplastin Ratio 1.5; Partial Thromboplastin Time 38.9 Seconds (21.0-31.0)
[2020-08-05 17:35] LABS: BUN Creatinine Ratio 9.5 (10-20); Calcium 8.1 mg/dl (8.5-10.1); Creatinine Clr Calc Pharmacy 29.6 ml/min; Est GFR (African American) 14.7 ml/min; Est GFR (Non-African American) 12.7 ml/min; Potassium 4.5 mmol/L (3.5-5.1)
[2020-08-05 17:42] LABS: Base Excess VBG -4.4 mEq/L; HCO3 VBG 23 mmol/L; PCO2 VBG 52 mmHg (38-50); PO2 VBG 24 mmHg; pH VBG 7.26 (7.36-7.41)
[2020-08-05 17:43] LABS: Oxygen Saturation VBG < 60.0 %
[2020-08-06] MEDS: DAPTOmycin 650 MG in SYRINGE 0 ML IV SCH
[2020-08-06 00:10] LABS: Partial Thromboplastin Ratio 1.5; Partial Thromboplastin Time 38.4 Seconds (21.0-31.0)
[2020-08-06] MEDS: HYDROmorphone INJ 0.5 MG/0.5 ML SYR IV PRN ×3 (03:55→22:17)
[2020-08-06] MEDS: ACETAMINOPHEN 1,000 MG/100 ML VIAL IV PRN ×3 (04:34→22:17)
[2020-08-06 06:21] LABS: Basophils # (auto) 0.02 K/uL (0-0.2); Basophils % (auto) 0.1 %; Eosinophils # (auto) 0.06 K/uL (0-0.5); Eosinophils % (auto) 0.4 %; Hematocrit (blood only) 29.5 % (42-52); Hemoglobin 9.7 g/dL (14.0-18.0); Immature Granulocytes # (auto) 0.07 K/uL (0.00-0.02); Immature Granulocytes % (auto) 0.5 %; Lymphocytes # (auto) 2.35 K/uL (1.2-3.4); Lymphocytes % (auto) 16.9 %; Mean Corpuscular Hemoglobin 27.8 pg (25-34); Mean Corpuscular Hgb Conc 32.9 g/dL (32-36); Mean Corpuscular Volume 84.5 fL (80-100); Mean Platelet Volume 11.3 fL (7.4-10.4); Monocytes # (auto) 0.86 K/uL (0.11-0.59); Monocytes % (auto) 6.2 %; Neutrophils # (auto) 10.54 K/uL (1.4-6.5); Neutrophils % (auto) 75.9 %; Platelet Count 182 K/uL (130-400); RDW Standard Deviation 43.4 fL (36.4-46.3); Red Blood Count 3.49 M/uL (4.7-6.1)
[2020-08-06 06:50] LABS: Partial Thromboplastin Ratio 1.5; Partial Thromboplastin Time 40.7 Seconds (21.0-31.0)
[2020-08-06 07:08] LABS: Albumin Globulin Ratio 0.3 (0.9-2); Albumin Level 1.7 gm/dl (3.4-5.0); BUN Creatinine Ratio 9.2 (10-20); Bilirubin,Total 0.3 mg/dl (0.2-1); Calcium 7.5 mg/dl (8.5-10.1); Creatinine Clr Calc Pharmacy 27.7 ml/min; Est GFR (African American) 13.5 ml/min; Est GFR (Non-African American) 11.7 ml/min; Globulin 4.9 gm/dl (2.5-4.0); Phosphorus 4.9 mg/dl (2.5-4.9); Potassium 4.3 mmol/L (3.5-5.1); Total Protein 6.6 gm/dl (6.4-8.2); Troponin I 0.122 ng/ml (0-0.045)
[2020-08-06] MEDS: BUMETANIDE 10 MG in DEXTROSE 5% 10 ML IV SCH ×2 (08:02→17:35)
[2020-08-06] MEDS: PIPERACILLIN/TAZOBACTAM 4.5 GM in DEXTROSE 5% 100 ML IV SCH ×2 (08:03→20:45)
[2020-08-06] MEDS: COLLAGENASE OINT 30 GM TUBE EXT SCH (08:03)
[2020-08-06] MEDS: carvediloL 12.5 MG TAB PO SCH ×2 (08:03→20:45)
[2020-08-06] MEDS: buPROPion SR 150 MG TABCR PO SCH (08:03)
[2020-08-06] MEDS: MULTIVITAMIN TAB PO SCH (08:04)
[2020-08-06] MEDS: INSULIN ASPART 100 UNITS/ML 3 ML PEN SC SCH ×4 (08:15→20:46)
[2020-08-06] MEDS: HEPARIN SODIUM/DEXTROSE 25,000 UNITS/500 ML BAG IV SCH ×4 (08:17→20:44)
[2020-08-06] MEDS: PREGABALIN 50 MG CAP PO SCH (08:45)
[2020-08-06] MEDS ORDERED: [UNRECOGNIZED DRUG - OTHER] TOP SCH (09:00)
--- NOTE | 2020-08-06 09:48 | Nephrology Progress Note ---
Date of Service August 06, 2020 Assessment & Plan (1) Acute kidney injury: Non-oliguric. Unfortunately remains in a positive fluid balance. Patten remains intact. Clinical presentation consistent with suspected ATN (urine microscopy acellular). Electrolytes acceptable. No overt uremic symptoms. No emergent indication for dialysis. However, remains in a positive fluid balance despite diuretics. May require LAUNDRETTE OWNER in next 24-48 hours to manage volume status. Will attempt to minimize obligatory intake and titrate diuretics today. Ideally, given advanced kidney dysfunction at baseline, would favor permcath for HD. Potential indications for LAUNDRETTE OWNER discussed with Lex. Lex is agreeable to IHD if indicated. Document I/O's. Monitor metabolic profile q 12 hours on Bumex gtt. Bumex gtt increased to 1 mg/hr this AM. If an appropriately negative fluid balance is not achieved by this afternoon, combination diuretic therapy will be added. If unable to appropriately diuresis today, would anticipate a consult to vascular surgery for permcath placement tomorrow (assuming blood cultures remain negative). Medications appropriately dosed for kidney dysfunction. 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 CKD IV A3. Baseline creatinine 2.5- 3.0 mg/dL. Will require close outpatient follow up. High risk for LAUNDRETTE OWNER. (3) Pulmonary edema: Minimize obligatory intake. Bumex gtt titrated to encourage UOP. (4) Hypertension: Continue to hold lisinopril (CARMEN/ARB) in setting of BJ. (5) Sepsis: Podiatry consultation reviewed. Remains on Zosyn + dapto. Blood 07/04 Group G Beta Strep. If planning to continue dapto, will likely need dose adjustment -- discussed with pharmacy today. Follow up culture NGTD. Admission and Anticipated Discharge Date Admission Date: August 03, 2020 Subjective Lex remains in a positive fluid balance. Subjectively not significantly dyspneic laying in bed. Fevers and chills persist. Remains hypoxic. Blood cultures negative to date. Review of Systems Review of Systems: All systems reviewed & are unremarkable except as noted in HPI & below Physical Exam Constitutional: + morbidly obese; no acute distress Eyes: + anicteric sclerae; no corneal abnormality ENMT: Mouth: no oral mucosal abnormality and oral mucous membranes not dry Neck: normal visual inspection, trachea midline and + thick neck Respiratory: normal respiratory effort Auscultation: + diminished lung sounds and + rales Cardiovascular: Rate/Rhythm: + tachycardic Heart Sounds: normal S1 and normal S2 Extremities: + edema Gastrointestinal (Abdomen): Percussion/Palpation: abdomen soft; abdomen nontender Musculoskeletal: Extremities: no cyanosis and no clubbing Skin: normal turgor; no lesions Neurologic: Motor/Sensory: no tremor and no asterixis Psychiatric: Orientation: alert and oriented x 3 Results & Data ([facility]) Vital Signs (Past 12 Hours) Vital Signs Temp Pulse Resp BP Pulse Ox 08/06/20 05:35 38.5 C H 08/06/20 05:14 38.8 C H 106 H 18 99/65 L 97 08/06/20 05:00 38.9 C H 117 H 24 97 08/06/20 04:14 39.1 C H 115 H 24 122/82 97 08/06/20 04:00 39.2 C H 116 H 24 94 08/06/20 03:15 39.3 C H 117 H 26 H 98 08/06/20 03:14 39.3 C H 117 H 19 124/81 98 08/06/20 03:00 39.4 C H 118 H 22 97 08/06/20 02:15 39.4 C H 118 H 24 98 08/06/20 02:14 39.4 C H 119 H 31 H 128/77 97 08/06/20 02:00 39.3 C H 120 H 26 H 96 08/06/20 01:22 38.8 C H 119 H 33 H 136/81 100 08/06/20 01:00 38.5 C H 111 H 24 99 08/06/20 00:22 104 H 08/06/20 00:14 38.3 C H 102 H 21 95/70 L 99 08/06/20 00:00 38.2 C H 103 H 21 97 08/05/20 23:14 38.0 C H 106 H 22 111/79 95 08/05/20 23:00 37.9 C H 110 H 24 98 08/05/20 22:14 38.0 C H 109 H 25 H 111/74 96 08/05/20 22:00 38.1 C H 108 H 23 97 Laboratory Results Laboratory Results - last 24 hr 08/05/20 08/05/20 08/05/20 09:31 11:29 15:58 WBC RBC Hgb Hct MCV MCH MCHC RDW Std Deviation RDW Coeff of Nicky Plt Count MPV Immature Gran % (Auto) Neut % (Auto) Lymph % (Auto) [place] % (Auto) Eos % (Auto) Baso % (Auto) Neut # (Auto) Lymph # (Auto) [place] # (Auto) Eos # (Auto) Baso # (Auto) Immature Gran # (Auto) APTT 42.5 H PTT Ratio 1.6 VBG pH VBG pCO2 VBG pO2 VBG HCO3 VBG O2 Saturation VBG Base Excess Barometric Pressure Sodium Potassium Chloride Carbon Dioxide Anion Gap BUN Creatinine Est Cr Clr Drug Dosing Est GFR ( Amer) Est GFR (Non-Af Amer) BUN/Creatinine Ratio Glucose POC Glucose 170 H 222 H Lactate Calcium Phosphorus Magnesium Total Bilirubin AST ALT Alkaline Phosphatase Troponin I Total Protein Albumin Globulin Albumin/Globulin Ratio 08/05/20 08/05/20 08/05/20 16:49 16:49 16:49 WBC RBC Hgb Hct MCV MCH MCHC RDW Std Deviation RDW Coeff of Nicky Plt Count MPV Immature Gran % (Auto) Neut % (Auto) Lymph % (Auto) [place] % (Auto) Eos % (Auto) Baso % (Auto) Neut # (Auto) Lymph # (Auto) [place] # (Auto) Eos # (Auto) Baso # (Auto) Immature Gran # (Auto) APTT 38.9 H PTT Ratio 1.5 VBG pH VBG pCO2 VBG pO2 VBG HCO3 VBG O2 Saturation VBG Base Excess Barometric Pressure Sodium 134 L Potassium 4.5 Chloride 101 Carbon Dioxide 24 Anion Gap 9.0 BUN 50 H Creatinine 5.24 H* D Est Cr Clr Drug Dosing 29.6 Est GFR ( Amer) 14.7 Est GFR (Non-Af Amer) 12.7 BUN/Creatinine Ratio 9.5 L Glucose 173 H POC Glucose Lactate 1.2 Calcium 8.1 L Phosphorus Magnesium Total Bilirubin AST ALT Alkaline Phosphatase Troponin I Total Protein Albumin Globulin Albumin/Globulin Ratio 08/05/20 08/05/20 08/05/20 16:49 20:48 23:43 WBC RBC Hgb Hct MCV MCH MCHC RDW Std Deviation RDW Coeff of Nicky Plt Count MPV Immature Gran % (Auto) Neut % (Auto) Lymph % (Auto) [place] % (Auto) Eos % (Auto) Baso % (Auto) Neut # (Auto) Lymph # (Auto) [place] # (Auto) Eos # (Auto) Baso # (Auto) Immature Gran # (Auto) APTT 38.4 H PTT Ratio 1.5 VBG pH 7.26 L VBG pCO2 52 H VBG pO2 24 VBG HCO3 23 VBG O2 Saturation < 60.0 VBG Base Excess -4.4 Barometric Pressure 736.9 Sodium Potassium Chloride Carbon Dioxide Anion Gap BUN Creatinine Est Cr Clr Drug Dosing Est GFR ( Amer) Est GFR (Non-Af Amer) BUN/Creatinine Ratio Glucose POC Glucose 197 H Lactate Calcium Phosphorus Magnesium Total Bilirubin AST ALT Alkaline Phosphatase Troponin I Total Protein Albumin Globulin Albumin/Globulin Ratio 08/06/20 08/06/20 08/06/20 06:03 06:03 06:03 WBC 13.90 H RBC 3.49 L Hgb 9.7 L Hct 29.5 L MCV 84.5 MCH 27.8 MCHC 32.9 RDW Std Deviation 43.4 RDW Coeff of Nicky 14.0 Plt Count 182 MPV 11.3 H Immature Gran % (Auto) 0.5 Neut % (Auto) 75.9 Lymph % (Auto) 16.9 [place] % (Auto) 6.2 Eos % (Auto) 0.4 Baso % (Auto) 0.1 Neut # (Auto) 10.54 H Lymph # (Auto) 2.35 [place] # (Auto) 0.86 H Eos # (Auto) 0.06 Baso # (Auto) 0.02 Immature Gran # (Auto) 0.07 H APTT 40.7 H PTT Ratio 1.5 VBG pH VBG pCO2 VBG pO2 VBG HCO3 VBG O2 Saturation VBG Base Excess Barometric Pressure Sodium 132 L Potassium 4.3 Chloride 103 Carbon Dioxide 21 Anion Gap 8.0 BUN 52 H Creatinine 5.61 H* D Est Cr Clr Drug Dosing 27.7 Est GFR ( Amer) 13.5 Est GFR (Non-Af Amer) 11.7 BUN/Creatinine Ratio 9.2 L Glucose 150 H POC Glucose Lactate Calcium 7.5 L Phosphorus 4.9 D Magnesium 2.0 Total Bilirubin 0.3 AST 28 ALT 23 Alkaline Phosphatase 78 Troponin I 0.122 H* Total Protein 6.6 Albumin 1.7 L Globulin 4.9 H Albumin/Globulin Ratio 0.3 L 08/06/20 08:09 WBC RBC Hgb Hct MCV MCH MCHC RDW Std Deviation RDW Coeff of Nicky Plt Count MPV Immature Gran % (Auto) Neut % (Auto) Lymph % (Auto) [place] % (Auto) Eos % (Auto) Baso % (Auto) Neut # (Auto) Lymph # (Auto) [place] # (Auto) Eos # (Auto) Baso # (Auto) Immature Gran # (Auto) APTT PTT Ratio VBG pH VBG pCO2 VBG pO2 VBG HCO3 VBG O2 Saturation VBG Base Excess Barometric Pressure Sodium Potassium Chloride Carbon Dioxide Anion Gap BUN Creatinine Est Cr Clr Drug Dosing Est GFR ( Amer) Est GFR (Non-Af Amer) BUN/Creatinine Ratio Glucose POC Glucose 156 H Lactate Calcium Phosphorus Magnesium Total Bilirubin AST ALT Alkaline Phosphatase Troponin I Total Protein Albumin Globulin Albumin/Globulin Ratio PG Care Time/CCT Total # of Minutes Spent Total Time Spent with Patient: Total time spent is greater than 50% in coordination of care (as documented) at patient's floor/unit and/or counseling patient: Coding Level of Care Code 45181 Subseq Hosp Care Lvl 3 Diagnoses Acute kidney injury N17.9 Chronic kidney disease, stage IV (severe) N18.4 Pulmonary edema J81.1 Hypertension I10 Sepsis A41.9 Sepsis acute organ dysfunction status: without acute organ dysfunction Sepsis type: sepsis due to unspecified organism (1) Sepsis Sepsis acute organ dysfunction status: without acute organ dysfunction Sepsis type: sepsis due to unspecified organism Qualified Code(s): A41.9 - Sepsis, unspecified organism
--- NOTE | 2020-08-06 10:34 | Critical Care Progress Note ---
Date of Service August 06, 2020 Assessment & Plan (1) Admitted to intensive care unit: Reason Critically Ill: 40-year-old male with likely sepsis from LEFT foot ulcer with cellulitis with ongoing tachycardia, fevers, and new onset of hypoxia requiring close hemodynamic monitoring after initiation of Cardizem drip. NEURO - * CAM ICU: NEGATIVE * Pain: Dilaudid as needed CARDIAC/VASCULAR - * Tachycardia: Likely sepsis mediated. Echo with LVEF of 50 to 55%. Borderline global hypokinesis of the left ventricle. Right ventricle normal in size and function. Elevated right atrial pressures noted. Mild troponin elevation noted to 0.284. Likely demand ischemia. Continue carvedilol for history of hypertension. RESPIRATORY -acute hypoxia likely related to atelectasis and pulmonary edema. Currently on a Bumex drip. Concern for pulmonary embolism. Lower extremity ultrasounds on 08/04/2020 are negative for DVTs of the right or left lower extremity. Will obtain a V/Q scan due to concerns of PE. Maybe difficult to interpret in setting of atelectasis. GI/NUTRITION - * Diabetic and heart healthy diet is encouraged. RENAL/LYTES -history of CKD stage IV. Continue Bumex drip per nephrology. Baseline creatinine 2.5-3. Lisinopril held due to BJ. Considering dialysis catheter placement. Nephrology will discuss with vascular surgery regarding permacath placement. Electrolytes stable. - * Patten in place - Strict I&Os. ENDO - * Insulin-dependent diabetes * BSGs per unit protocol. ISS --> gtt per unit policy. HEME - * Hemoglobin trending down slowly. We will continue to keep an eye on this. * Patient with baseline anemia likely secondary to chronic kidney disease * Will discontinue heparin drip if VQ scan is low suspicion for pulmonary embolism. ID - * Severe sepsis: * Group G streptococcus noted on blood cultures from 08/03/2020. Repeat blood cultures from 08/04/2020 are negative. Urinalysis from 08/03/2020 not suspicious for UTI. * Pro-Julius from 08/05/2020 elevated at 1.70. * Will consult infectious disease (telehealth) continue broad-spectrum antibiotics. Patient with ongoing fever. * Currently on daptomycin and Zosyn. Will consider CT of the chest without contrast to evaluate for infiltrate or pneumonia. LINES/IV ACCESS - * PIVs x3 * Patten DVT PROPHYLAXIS - * Heparin drip * SCDs (2) Hypoxia: (3) Pulmonary edema: (4) Tachycardia: (5) Hypertension: (6) Acute kidney injury: (7) Elevated troponin: (8) Cellulitis of left lower extremity: (9) Sepsis: (10) Severe obstructive sleep apnea: Admission and Anticipated Discharge Date Admission Date: August 03, 2020 Subjective Patient seen examined this morning. He has occasional shortness of breath. Denies any chest pain at this time. Tolerating diet well. Still has ongoing high-grade fevers. Review of Systems Review of Systems: All systems reviewed & are unremarkable except as noted in HPI & below Physical Exam Physical Exam: General: Alert. nontoxic. Skin: Warm, dry, Head: Atraumatic Ears, nose, mouth and throat: airway patent Cardiovascular: Normal peripheral perfusion Respiratory: no respiratory distress Gastrointestinal: Non distended Results & Data Results & Data ([facility]) Vital Signs (Past 12 Hours) Vital Signs Temp Pulse Resp BP Pulse Ox 08/06/20 09:14 102.6 F H 117 H 25 H 107/69 92 08/06/20 09:00 102.2 F H 120 H 25 H 92 08/06/20 08:14 101.1 F H 120 H 16 131/85 94 08/06/20 08:00 100.9 F H 109 H 20 95 08/06/20 07:14 100.6 F H 105 H 21 116/70 93 08/06/20 07:00 100.6 F H 105 H 4 L 86 L 08/06/20 05:35 101.3 F H 08/06/20 05:14 101.8 F H 106 H 18 99/65 L 97 08/06/20 05:00 102.0 F H 117 H 24 97 08/06/20 04:14 102.4 F H 115 H 24 122/82 97 08/06/20 04:00 102.6 F H 116 H 24 94 08/06/20 03:15 102.7 F H 117 H 26 H 98 08/06/20 03:14 102.7 F H 117 H 19 124/81 98 08/06/20 03:00 102.9 F H 118 H 22 97 08/06/20 02:15 102.9 F H 118 H 24 98 08/06/20 02:14 102.9 F H 119 H 31 H 128/77 97 08/06/20 02:00 102.7 F H 120 H 26 H 96 08/06/20 01:22 101.8 F H 119 H 33 H 136/81 100 08/06/20 01:00 101.3 F H 111 H 24 99 08/06/20 00:22 104 H 08/06/20 00:14 100.9 F H 102 H 21 95/70 L 99 08/06/20 00:00 100.8 F H 103 H 21 97 08/05/20 23:14 100.4 F H 106 H 22 111/79 95 08/05/20 23:00 100.2 F H 110 H 24 98 vital signs, labs and imaging reviewed. Coding Level of Care Code 42693 Subseq Hosp Care Lvl 3 Diagnoses Admitted to intensive care unit Z78.9 Hypoxia R09.02 Pulmonary edema J81.1 Tachycardia R00.0 Hypertension I10 Acute kidney injury N17.9 Elevated troponin R77.8 Cellulitis of left lower extremity L03.116 Sepsis A41.9 Sepsis acute organ dysfunction status: without acute organ dysfunction Sepsis type: sepsis due to unspecified organism Severe obstructive sleep apnea G47.33 (1) Sepsis Sepsis acute organ dysfunction status: without acute organ dysfunction Sepsis type: sepsis due to unspecified organism Qualified Code(s): A41.9 - Sepsis, unspecified organism
[2020-08-06 13:26] LABS: Partial Thromboplastin Ratio 1.6; Partial Thromboplastin Time 42.8 Seconds (21.0-31.0)
--- NOTE | 2020-08-06 15:16 | Orthopedic Progress Note ---
Date of Service August 06, 2020 Assessment & Plan (1) Diabetic foot ulcer with osteomyelitis: Patient has chronic osteomyelitis right foot treated successfully with 8 week IV abx. Third and Fourth interspace wounds still present. Reviewed CT scan of left foot. Patient may benifit from MRI or Bone Scan (preferably WBC labeled) to rule out OM of left foot fifth met. (2) Diabetic foot ulcer associated with type 2 diabetes mellitus: Left foot Ulcer evaluated at today's visit. Will add Santyl to daily dressing changes. WOUND CULTURES ARE AVIALABLE AND SENSITIVIES NOTED IN RESULTS OF THIS NOTE Manners in which pressure reduction could be achieved were investigated. Off- loading is a critical part of this patient's management. Factors which likely contribute to non-healing include: lack of adequate off- loading when supine, inadequately controlled infection, lack of adequate off- loading when ambulating, lack of adherence to diabetic footwear, a limited understanding of the disease of diabetes and its processes, lack of adherence to diabetic control measures. (3) Cellulitis of left foot: (4) Cellulitis of left lower extremity: Admission and Anticipated Discharge Date Admission Date: August 03, 2020 Subjective Lex remains in a positive fluid balance. Subjectively not significantly dyspneic laying in bed. Fevers and chills persist. Remains hypoxic. Blood cultures negative to date. Review of Systems Constitutional: as per Subjective / HPI Patient denies symptoms. Eyes: Patient has one prosthetic eye Ear, Nose, Mouth, Throat: as per Subjective / HPI Respiratory: as per Subjective / HPI Cardiovascular: as per Subjective / HPI Gastrointestinal: as per Subjective / HPI Genitourinary: + as per Subjective / HPI Musculoskeletal: as per Subjective / HPI Integumentary: + non-healing lesions, + skin ulcer, + erythema and + change in skin color Neurologic: as per Subjective / HPI Psychiatric: as per Subjective / HPI Endocrine: as per Subjective / HPI Hematologic / Lymphatic: as per Subjective / HPI Allergy / Immunological: as per Subjective / HPI Physical Exam Constitutional: well developed, well nourished, cooperative, comfortable and + overweight ENMT: external ear and nose normal, oropharynx normal Neck: trachea midline, no thyromegaly Respiratory: normal respiratory effort Cardiovascular: Rate/Rhythm: regular rate and regular rhythm Chest (Breasts): Chest: normal inspection of chest Gastrointestinal (Abdomen): normal bowel sounds, soft, nontender, no hepatosplenomegaly Musculoskeletal: no cyanosis or clubbing, extremities motor strength 5/5 Neurologic: Motor/Sensory: + sensory deficit Psychiatric: Orientation: alert and oriented x 3 Lymphatic: no cervical or axillary lymphadenopathy Results & Data ([facility]) Vital Signs (Past 12 Hours) Component 3d ago Specimen Description WOUND Special Requests None Gram Stain 2+ Gram Positive Cocci No Polys Seen Culture 4+ Klebsiella oxytoca 4+ Enterobacter cloacae complex 4+ STREPTOCOCCUS DYSGALACTIAE 4+ Normal Skin Yue Report Final Result 08/06/2020 Organism 4+ Klebsiella oxytoca Organism 4+ Enterobacter cloacae complex Organism 4+ STREPTOCOCCUS DYSGALACTIAE Resulting Agency [facility] Susceptibility 4+ enterobacter cloacae complex (microscan greta-ug/ml (kody)) Not Specified Amikacin <=16 Sensitive Amoxicillin/Clavulanate >16/8 Resistant Ampicillin >16 Resistant Ampicillin/Sulbactam 8/4 Resistant Aztreonam <=4 Sensitive Cefazolin >16 Resistant Cefepime <=2 Sensitive Cefotaxime >32 Resistant Cefoxitin >16 Resistant Ceftazidime <=1 Sensitive Ceftriaxone <=1 Sensitive Cefuroxime 8 Resistant Ciprofloxacin <=0.25 Sensitive Ertapenem <=0.5 Sensitive Gentamicin <=2 Sensitive Imipenem <=1 Sensitive Levofloxacin <=0.5 Sensitive Meropenem <=1 Sensitive Minocycline <=4 Sensitive Moxifloxacin <=2 Sensitive Piperacillin/Tazobactam <=8 Sensitive Sulfa/Trimethoprim <=0.5/9.5 Sensitive Tetracycline <=4 Sensitive Tobramycin <=2 Sensitive Susceptibility 4+ streptococcus dysgalactiae (microscan greta-ug/ml (kody)) Not Specified Ampicillin <=0.06 Sensitive Cefepime <=0.25 Sensitive Cefotaxime <=0.25 Sensitive Ceftriaxone <=0.25 Sensitive Clindamycin <=0.06 Sensitive Penicillin <=0.03 Sensitive Vancomycin 0.5 Sensitive Susceptibility 4+ klebsiella oxytoca (microscan greta-ug/ml (kody)) Not Specified Amikacin <=16 Sensitive Amoxicillin/Clavulanate <=8/4 Sensitive Ampicillin 16 Resistant Ampicillin/Sulbactam <=4/2 Sensitive Aztreonam <=4 Sensitive Cefazolin 8 Sensitive Cefoxitin <=8 Sensitive Ciprofloxacin <=0.25 Sensitive Ertapenem <=0.5 Sensitive Gentamicin <=2 Sensitive Imipenem <=1 Sensitive Levofloxacin <=0.5 Sensitive Meropenem <=1 Sensitive Minocycline <=4 Sensitive Moxifloxacin <=2 Sensitive Piperacillin/Tazobactam <=8 Sensitive Sulfa/Trimethoprim <=0.5/9.5 Sensitive Tetracycline <=4 Sensitive Tobramycin <=2 Sensitive Specimen Collected: 08/03/20 6:12 PM Last Resulted: 08/06/20 Component 3d ago Specimen Description WOUND Special Requests None Gram Stain 2+ Gram Positive Cocci No Polys Seen Culture 4+ Klebsiella oxytoca 4+ Enterobacter cloacae complex 4+ STREPTOCOCCUS DYSGALACTIAE 4+ Normal Skin Yue Report Final Result 08/06/2020 Organism 4+ Klebsiella oxytoca Organism 4+ Enterobacter cloacae complex Organism 4+ STREPTOCOCCUS DYSGALACTIAE Resulting Agency [facility] Susceptibility 4+ enterobacter cloacae complex (microscan greta-ug/ml (kody)) Not Specified Amikacin <=16 Sensitive Amoxicillin/Clavulanate >16/8 Resistant Ampicillin >16 Resistant Ampicillin/Sulbactam 8/4 Resistant Aztreonam <=4 Sensitive Cefazolin >16 Resistant Cefepime <=2 Sensitive Cefotaxime >32 Resistant Cefoxitin >16 Resistant Ceftazidime <=1 Sensitive Ceftriaxone <=1 Sensitive Cefuroxime 8 Resistant Ciprofloxacin <=0.25 Sensitive Ertapenem <=0.5 Sensitive Gentamicin <=2 Sensitive Imipenem <=1 Sensitive Levofloxacin <=0.5 Sensitive Meropenem <=1 Sensitive Minocycline <=4 Sensitive Moxifloxacin <=2 Sensitive Piperacillin/Tazobactam <=8 Sensitive Sulfa/Trimethoprim <=0.5/9.5 Sensitive Tetracycline <=4 Sensitive Tobramycin <=2 Sensitive Susceptibility 4+ streptococcus dysgalactiae (microscan greta-ug/ml (kody)) Not Specified Ampicillin <=0.06 Sensitive Cefepime <=0.25 Sensitive Cefotaxime <=0.25 Sensitive Ceftriaxone <=0.25 Sensitive Clindamycin <=0.06 Sensitive Penicillin <=0.03 Sensitive Vancomycin 0.5 Sensitive Susceptibility 4+ klebsiella oxytoca (microscan greta-ug/ml (kody)) Not Specified Amikacin <=16 Sensitive Amoxicillin/Clavulanate <=8/4 Sensitive Ampicillin 16 Resistant Ampicillin/Sulbactam <=4/2 Sensitive Aztreonam <=4 Sensitive Cefazolin 8 Sensitive Cefoxitin <=8 Sensitive Ciprofloxacin <=0.25 Sensitive Ertapenem <=0.5 Sensitive Gentamicin <=2 Sensitive Imipenem <=1 Sensitive Levofloxacin <=0.5 Sensitive Meropenem <=1 Sensitive Minocycline <=4 Sensitive Moxifloxacin <=2 Sensitive Piperacillin/Tazobactam <=8 Sensitive Sulfa/Trimethoprim <=0.5/9.5 Sensitive Tetracycline <=4 Sensitive Tobramycin <=2 Sensitive Specimen Collected: 08/03/20 6:12 PM Last Resulted: 08/06/20 Vital Signs Temp Pulse Resp BP Pulse Ox 08/06/20 09:14 39.2 C H 117 H 25 H 107/69 92 08/06/20 09:00 39.0 C H 120 H 25 H 92 08/06/20 08:14 38.4 C H 120 H 16 131/85 94 08/06/20 08:00 38.3 C H 109 H 20 95 08/06/20 07:14 38.1 C H 105 H 21 116/70 93 08/06/20 07:00 38.1 C H 105 H 4 L 86 L 08/06/20 05:35 38.5 C H 08/06/20 05:14 38.8 C H 106 H 18 99/65 L 97 08/06/20 05:00 38.9 C H 117 H 24 97 08/06/20 04:14 39.1 C H 115 H 24 122/82 97 08/06/20 04:00 39.2 C H 116 H 24 94 08/06/20 03:15 39.3 C H 117 H 26 H 98 08/06/20 03:14 39.3 C H 117 H 19 124/81 98 (1) Diabetic foot ulcer associated with type 2 diabetes mellitus Diabetic foot ulcer location: toe Laterality: left Non-pressure ulcer stage: unspecified non-pressure ulcer stage Qualified Code(s): E11.621 - Type 2 diabetes mellitus with foot ulcer; L97.529 - Non-pressure chronic ulcer of other part of left foot with unspecified severity
[2020-08-06] MEDS ORDERED: CHLOROTHIAZIDE SODIUM 500 MG in DEXTROSE 5% 50 ML IV ONE (18:30)
--- NOTE | 2020-08-06 19:11 | Hospitalist Progress Note ---
Date of Service August 06, 2020 Assessment & Plan (1) Bacteremia due to Streptococcus: Bacteremia with severe sepsis. No septic shock fortunately. Has not required pressors. 2nd group G strep. source - cellulitis of LLE along with infected left foot plantar diabetic ulcer. ?osteomyelitis of this ulcer based on CT. Remains on zosyn and daptomycin. Has had persistent fever despite appropriate treatment of the strep. No abscess of left foot on imaging this past weekend. Left tib-fib CT without nec fasc, abscess, gas formation, etc. No clinical signs of those entities on exam. Thus, remains on zosyn. Would be in favor of stopping the daptomycin, however - MRSA CARPENTER SHIP swab neg, no prior h/o MRSA, etc. Repeat blood cultures 08/04 thus far negative. Echo, although limited, without signs of obvious valvular vegetations. (2) Diabetic foot ulcer associated with type 2 diabetes mellitus: Left 5th metatarsal head diabetic foot ulcer with cellulitis of the left lower extremity. Blood cultures with group G strep - thus, this is likely pathogen causing the infection in ulcer/LLE. Continue abx as above. CT of left tib-fib - no signs of deeper infection (nec fasc, abscess, etc). CT of left foot - some concern for osteomyelitis of 5th metatarsal head region. Ultimately MRI will be needed to r/o osteo but too unstable/ill for such at this time. Continue local wound care. Podiatry consult appreciated. Continue IV antibiotics. (3) Cellulitis of left lower extremity: As above Continues to improve (4) Acute kidney injury: Baseline Creatinine about 2.5 to 2.8. Now 5.6 Non-oliguric Likely ATN from septicemia/bacteremia. No evidence of obstruction. Cont preston. Nephro consult appreciated. K level wnl. Volume status actually improved with bumex infusion. Acid-base status relatively acceptable. However, if Cr continues to rise and diuresis decreases then may need temporary HD catheter for dialysis. BMP twice daily. (5) Acute respiratory failure with hypoxia and hypercapnia: 2nd to pulmonary edema and/or pneumonia. Latter unlikely. Remains on bumex infusion. Cont zosyn for LLE cellulitis/bacteremia. If there is any element of pneumonia the zosyn will cover. Recent COVID testing negative. Patient also fully vaccinated against COVID. Cont BIPAP HS. Cont oxygen support during the day. (6) Acute pulmonary edema: Gradually improving with bumex infusion. Bumex now at 1mg/hr. Respiratory status has improved w/ diuresis. Echo with low-normal EF 50-55%. (7) SVT (supraventricular tachycardia): Prior to transfer to ICU he was having sinus tach interspersed with either atrial tachycardia or even a 2:1 atrial flutter. He had not responded to IV or PO beta blockers. He was placed on cardizem infusion. This helped rate control. His fever certainly worsened his HRs. He has been in NSR since the weekend. Echo noted. TSH wnl. He is on heparin infusion to cover for possibility of VTE. If he had a flutter then stroke risk is reduced with the heparin. (8) Severe obstructive sleep apnea: Was scheduled to get sleep study in the near-future as outpatient. Cont HS BIPAP. (9) Hypomagnesemia: repleted and now normal (10) Chronic kidney disease, stage IV (severe): baseline Cr 2.5 to 2.8. now with BJ/ARF. see above. (11) HTN (hypertension): Continue coreg if BP will tolerate. May need dose adjustment. Hold CARMEN given his BJ. Hold Amlodipine. Cardizem infusion stopped. (12) Uncontrolled type 2 diabetes mellitus: Hold semaglutide. a1c >8%. novolog coverage. ICU glycemic protocol in place. (13) Mixed hyperlipidemia: hold Lipitor 80 mg daily LFTs remain wnl (14) BPH loc w urin obs/LUTS: hold tamsulosin due to preston and BPs low-normal (15) Diabetic nephropathy associated with type 2 diabetes mellitus: baseline CKD stage 4 (16) Elevated troponin: Likely myocardial demand ischemia in setting of bacteremia, ? a tach vs a flutter vs other, serious illness. Can't fully rule out an ACS but doubt such. (17) Morbid obesity with BMI of 45.0-49.9, adult: BMI 48 (18) Multiorgan failure: remains critically ill with worsening ARF 2nd sepsis-associated ATN, severe sepsis/bacteremia with ongoing fever, etc (19) DM neuropathy, painful: in light of worsening acute renal failure would HOLD lyrica this could be contributing to his sleepiness/lethargy (20) DVT prophylaxis: heparin infusion Admission and Anticipated Discharge Date Admission Date: August 03, 2020 Subjective tele - NSR patient just finished eating when I entered the room he was still sitting at the side of bed stated he was very tired not sleeping well he overall feels a bit better he is worried about the prospect of HD but stated "if that is what's needed I'll do it" cough, dyspnea, orthopnea all better distal left leg pain from cellulitis also improved Review of Systems Constitutional: + fever, + fatigue and + weakness; no anorexia Respiratory: no sputum production and no wheezing Cardiovascular: + dyspnea on exertion and + edema; no chest pain and no orthopnea Gastrointestinal: no abdominal pain and no diarrhea/loose stools Physical Exam Constitutional: + morbidly obese; no acute distress and no altered mental status (a little sleepy today but answers questions appropriately) ENMT: external ear and nose normal, oropharynx normal Respiratory: no respiratory distress Auscultation: + diminished lung sounds (Bases) and + crackles (bases); no wheezes Cardiovascular: Rate/Rhythm: regular rate and regular rhythm Heart Sounds: normal S1 and normal S2; no murmur Vessels: posterior tibial pulses present and dorsalis pedis pulses present; no JVD (difficult to assess due to neck size ) Extremities: + edema (2+ on left, 1+ on right ) Gastrointestinal (Abdomen): normal bowel sounds, soft, nontender, no hepatosplenomegaly Skin: + rash (Stasis dermatitis LLE longoria; cellulitis - LLE - again improved ) dressings on left foot NOT removed today Psychiatric: Orientation: alert and oriented x 3 Results & Data Results & Data ([facility]) Vital Signs (Past 12 Hours) Vital Signs Temp Pulse Resp BP Pulse Ox Pulse Ox 08/06/20 16:14 38.0 C H 101 H 25 H 111/74 98 08/06/20 16:00 38.1 C H 99 H 17 96 93 08/06/20 15:14 38.3 C H 101 H 26 H 86/57 L 97 08/06/20 15:00 38.3 C H 101 H 23 98 08/06/20 14:14 38.7 C H 107 H 19 101/68 98 08/06/20 14:00 38.8 C H 108 H 23 99 08/06/20 13:14 38.9 C H 107 H 23 120/76 100 08/06/20 13:00 38.9 C H 107 H 10 L 98 08/06/20 12:14 38.9 C H 106 H 24 117/77 98 08/06/20 12:00 38.9 C H 109 H 18 91 08/06/20 11:14 38.9 C H 106 H 24 110/56 L 99 08/06/20 11:00 38.9 C H 107 H 24 93 08/06/20 10:14 39.0 C H 109 H 25 H 98/59 L 98 08/06/20 10:00 39.1 C H 110 H 28 H 99 08/06/20 09:14 39.2 C H 117 H 25 H 107/69 92 08/06/20 09:00 39.0 C H 120 H 25 H 92 08/06/20 08:14 38.4 C H 120 H 16 131/85 94 08/06/20 08:00 38.3 C H 109 H 20 95 08/06/20 07:14 38.1 C H 105 H 21 116/70 93 Laboratory Results Laboratory Results - last 24 hr 08/05/20 08/05/20 08/06/20 20:48 23:43 06:03 WBC RBC Hgb Hct MCV MCH MCHC RDW Std Deviation RDW Coeff of Nicky Plt Count MPV Immature Gran % (Auto) Neut % (Auto) Lymph % (Auto) Parmer % (Auto) Eos % (Auto) Baso % (Auto) Neut # (Auto) Lymph # (Auto) Parmer # (Auto) Eos # (Auto) Baso # (Auto) Immature Gran # (Auto) APTT 38.4 H PTT Ratio 1.5 Sodium 132 L Potassium 4.3 Chloride 103 Carbon Dioxide 21 Anion Gap 8.0 BUN 52 H Creatinine 5.61 H* D Est Cr Clr Drug Dosing 27.7 Est GFR ( Amer) 13.5 Est GFR (Non-Af Amer) 11.7 BUN/Creatinine Ratio 9.2 L Glucose 150 H POC Glucose 197 H Calcium 7.5 L Phosphorus 4.9 D Magnesium 2.0 Total Bilirubin 0.3 AST 28 ALT 23 Alkaline Phosphatase 78 Troponin I 0.122 H* Total Protein 6.6 Albumin 1.7 L Globulin 4.9 H Albumin/Globulin Ratio 0.3 L 08/06/20 08/06/20 08/06/20 06:03 06:03 08:09 WBC 13.90 H RBC 3.49 L Hgb 9.7 L Hct 29.5 L MCV 84.5 MCH 27.8 MCHC 32.9 RDW Std Deviation 43.4 RDW Coeff of Nicky 14.0 Plt Count 182 MPV 11.3 H Immature Gran % (Auto) 0.5 Neut % (Auto) 75.9 Lymph % (Auto) 16.9 Parmer % (Auto) 6.2 Eos % (Auto) 0.4 Baso % (Auto) 0.1 Neut # (Auto) 10.54 H Lymph # (Auto) 2.35 Parmer # (Auto) 0.86 H Eos # (Auto) 0.06 Baso # (Auto) 0.02 Immature Gran # (Auto) 0.07 H APTT 40.7 H PTT Ratio 1.5 Sodium Potassium Chloride Carbon Dioxide Anion Gap BUN Creatinine Est Cr Clr Drug Dosing Est GFR ( Amer) Est GFR (Non-Af Amer) BUN/Creatinine Ratio Glucose POC Glucose 156 H Calcium Phosphorus Magnesium Total Bilirubin AST ALT Alkaline Phosphatase Troponin I Total Protein Albumin Globulin Albumin/Globulin Ratio 08/06/20 08/06/20 08/06/20 11:18 13:00 16:10 WBC RBC Hgb Hct MCV MCH MCHC RDW Std Deviation RDW Coeff of Nicky Plt Count MPV Immature Gran % (Auto) Neut % (Auto) Lymph % (Auto) Parmer % (Auto) Eos % (Auto) Baso % (Auto) Neut # (Auto) Lymph # (Auto) Parmer # (Auto) Eos # (Auto) Baso # (Auto) Immature Gran # (Auto) APTT 42.8 H PTT Ratio 1.6 Sodium Potassium Chloride Carbon Dioxide Anion Gap BUN Creatinine Est Cr Clr Drug Dosing Est GFR ( Amer) Est GFR (Non-Af Amer) BUN/Creatinine Ratio Glucose POC Glucose 176 H 221 H Calcium Phosphorus Magnesium Total Bilirubin AST ALT Alkaline Phosphatase Troponin I Total Protein Albumin Globulin Albumin/Globulin Ratio 08/06/20 18:49 WBC RBC Hgb Hct MCV MCH MCHC RDW Std Deviation RDW Coeff of Nicky Plt Count MPV Immature Gran % (Auto) Neut % (Auto) Lymph % (Auto) Parmer % (Auto) Eos % (Auto) Baso % (Auto) Neut # (Auto) Lymph # (Auto) Parmer # (Auto) Eos # (Auto) Baso # (Auto) Immature Gran # (Auto) APTT PTT Ratio Sodium Pending Potassium Pending Chloride Pending Carbon Dioxide Pending Anion Gap Pending BUN Pending Creatinine Pending Est Cr Clr Drug Dosing Pending Est GFR ( Amer) Pending Est GFR (Non-Af Amer) Pending BUN/Creatinine Ratio Pending Glucose Pending POC Glucose Calcium Pending Phosphorus Magnesium Total Bilirubin AST ALT Alkaline Phosphatase Troponin I Total Protein Albumin Globulin Albumin/Globulin Ratio Diagnostic Findings Microbiology 08/03/20 21:15 Blood Aerobic Blood Culture - Final Group G Beta Strep 08/03/20 21:15 Blood Anaerobic Blood Culture - Final Group G Beta Strep 08/03/20 21:06 Blood Aerobic Blood Culture - Final Group G Beta Strep 08/03/20 21:06 Blood Anaerobic Blood Culture - Final Group G Beta Strep 08/04/20 09:07 Blood Aerobic Blood Culture - Preliminary No growth in Aerobic bottle after 48 hours. 08/04/20 09:07 Blood Anaerobic Blood Culture - Preliminary No growth in Anaerobic bottle after 48 hours. 08/04/20 08:55 Blood Aerobic Blood Culture - Preliminary No growth in Aerobic bottle after 48 hours. 08/04/20 08:55 Blood Anaerobic Blood Culture - Preliminary No growth in Anaerobic bottle after 48 hours. PG Care Time/CCT Total # of Minutes Spent Total Time Spent with Patient: Total time spent is greater than 50% in coordination of care (as documented) at patient's floor/unit and/or counseling patient: Coding Level of Care Code 59694 Subseq Hosp Care Lvl 2 Diagnoses Bacteremia due to Streptococcus R78.81; B95.5 Diabetic foot ulcer associated with type 2 diabetes mellitus E11.621; L97.529 Diabetic foot ulcer location: toe Laterality: left Non-pressure ulcer stage: unspecified non-pressure ulcer stage Cellulitis of left lower extremity L03.116 Acute kidney injury N17.9 Acute respiratory failure with hypoxia and hypercapnia J96.01; J96.02 Acute pulmonary edema J81.0 SVT (supraventricular tachycardia) I47.1 Severe obstructive sleep apnea G47.33 Hypomagnesemia E83.42 Chronic kidney disease, stage IV (severe) N18.4 HTN (hypertension) I10 Hypertension type: essential hypertension Uncontrolled type 2 diabetes mellitus E11.65 Glycemic state: with hyperglycemia Mixed hyperlipidemia E78.2 BPH loc w urin obs/LUTS N40.1 Diabetic nephropathy associated with type 2 diabetes mellitus E11.21 Elevated troponin R77.8 Morbid obesity with BMI of 45.0-49.9, adult E66.01; Z68.42 Multiorgan failure DM neuropathy, painful E11.40 DVT prophylaxis Z29.9 (1) Diabetic foot ulcer associated with type 2 diabetes mellitus Diabetic foot ulcer location: toe Laterality: left Non-pressure ulcer stage: unspecified non-pressure ulcer stage Qualified Code(s): E11.621 - Type 2 diabetes mellitus with foot ulcer; L97.529 - Non-pressure chronic ulcer of other part of left foot with unspecified severity (2) HTN (hypertension) Hypertension type: essential hypertension Qualified Code(s): I10 - Essential (primary) hypertension (3) Uncontrolled type 2 diabetes mellitus Glycemic state: with hyperglycemia Qualified Code(s): E11.65 - Type 2 diabetes mellitus with hyperglycemia
[2020-08-06 19:35] LABS: BUN Creatinine Ratio 9.4 (10-20); Calcium 7.7 mg/dl (8.5-10.1); Creatinine Clr Calc Pharmacy 25.3 ml/min; Est GFR (African American) 12.1 ml/min; Est GFR (Non-African American) 10.4 ml/min; Potassium 4.4 mmol/L (3.5-5.1)
[2020-08-06 20:19] LABS: Partial Thromboplastin Ratio 1.6; Partial Thromboplastin Time 42.9 Seconds (21.0-31.0)
[2020-08-07] MEDS: HEPARIN SODIUM/DEXTROSE 25,000 UNITS/500 ML BAG IV SCH ×4 (02:07→12:42)
[2020-08-07] MEDS: HYDROmorphone INJ 0.5 MG/0.5 ML SYR IV PRN ×4 (02:08→22:19)
[2020-08-07 03:48] LABS: Hematocrit (blood only) 27.9 % (42-52); Hemoglobin 9.3 g/dL (14.0-18.0); Mean Corpuscular Hemoglobin 28.4 pg (25-34); Mean Corpuscular Hgb Conc 33.3 g/dL (32-36); Mean Corpuscular Volume 85.1 fL (80-100); Mean Platelet Volume 12.1 fL (7.4-10.4); Platelet Count 207 K/uL (130-400); RDW Coefficient of Variation 13.8 % (11.5-14.5); RDW Standard Deviation 43.4 fL (36.4-46.3); Red Blood Count 3.28 M/uL (4.7-6.1); White Blood Count 11.72 K/uL (4.8-10.8)
[2020-08-07 03:59] LABS: Partial Thromboplastin Ratio 1.7; Partial Thromboplastin Time 44.4 Seconds (21.0-31.0)
[2020-08-07 04:17] LABS: Albumin Level 1.8 gm/dl (3.4-5.0); BUN Creatinine Ratio 9.8 (10-20); Calcium 7.8 mg/dl (8.5-10.1); Est GFR (African American) 11.9 ml/min; Est GFR (Non-African American) 10.3 ml/min; Magnesium 1.8 mg/dl (1.8-2.4); Potassium 3.8 mmol/L (3.5-5.1)
[2020-08-07] MEDS: BUMETANIDE 10 MG in DEXTROSE 5% 10 ML IV SCH ×2 (04:20→13:35)
[2020-08-07] MEDS ORDERED: MAGNESIUM SULFATE / D5W 1 GM/100 ML BAG IV ONE (05:00)
[2020-08-07] MEDS: POTASSIUM CHLORIDE / WTR 10 MEQ/100 ML PLCT IV SCH ×2 (05:06→06:13)
[2020-08-07] MEDS: ACETAMINOPHEN 1,000 MG/100 ML VIAL IV PRN (06:46)
[2020-08-07] MEDS: carvediloL 12.5 MG TAB PO SCH ×2 (07:54→21:32)
[2020-08-07] MEDS: buPROPion SR 150 MG TABCR PO SCH (07:54)
[2020-08-07] MEDS: MULTIVITAMIN TAB PO SCH (07:55)
[2020-08-07] MEDS: COLLAGENASE OINT 30 GM TUBE EXT SCH (07:55)
[2020-08-07] MEDS: INSULIN ASPART 100 UNITS/ML 3 ML PEN SC SCH ×4 (07:56→21:31)
[2020-08-07] MEDS: PIPERACILLIN/TAZOBACTAM 4.5 GM in DEXTROSE 5% 100 ML IV SCH (08:10)
--- NOTE | 2020-08-07 09:21 | Nephrology Progress Note ---
Date of Service August 07, 2020 Assessment & Plan (1) Acute kidney injury: Non-oliguric. Excellent response to combination diuretic therapy yesterday. Patten remains intact. Clinical presentation consistent with suspected ATN (urine microscopy acellular). Electrolytes acceptable. No overt uremic symptoms. No emergent indication for dialysis. However, creatinine continues to rise. Will defer HD at this time while monitoring for renal recovery. Renal US will be obtained today. Bumex gtt to continue to encourage negative fluid balanance. Monitor metabolic profile twice daily. Ideally, given advanced kidney dysfunction at baseline, would favor permcath for HD. Potential indications for [employer] discussed with Lex. Lex is agreeable to IHD if indicated. Document I/O's. Medications appropriately dosed for kidney dysfunction. Dapto q 48 hr dosing. Low PO4 diet and monitor hyperphosphatemia. 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 CKD IV A3. Baseline creatinine 2.5- 3.0 mg/dL. Will require close outpatient follow up. (3) Pulmonary edema: Minimize obligatory intake. Bumex gtt titrated to encourage UOP. (4) Hypertension: Continue to hold lisinopril (CARMEN/ARB) in setting of BJ. (5) Sepsis: Podiatry consultation reviewed. Remains on Zosyn + dapto. Blood 07/04 Group G Beta Strep. Follow up culture NGTD. Admission and Anticipated Discharge Date Admission Date: August 03, 2020 Subjective No acute events overnight. Fevers persist. Lex otherwise feels well. No dyspnea. No pain. Appetite is good. Review of Systems Review of Systems: All systems reviewed & are unremarkable except as noted in HPI & below Physical Exam Constitutional: + morbidly obese; no acute distress Eyes: + anicteric sclerae; no corneal abnormality ENMT: Mouth: no oral mucosal abnormality and oral mucous membranes not dry Neck: normal visual inspection, trachea midline and + thick neck Respiratory: normal respiratory effort Auscultation: + diminished lung sounds and + rales Cardiovascular: Rate/Rhythm: + tachycardic Heart Sounds: normal S1 and normal S2 Extremities: + edema Gastrointestinal (Abdomen): Percussion/Palpation: abdomen soft; abdomen nontender Musculoskeletal: Extremities: no cyanosis and no clubbing Skin: normal turgor; no lesions Neurologic: Motor/Sensory: no tremor and no asterixis Psychiatric: Orientation: alert and oriented x 3 Genitourinary: Patten draining clear yellow urine Results & Data ([facility]) Vital Signs (Past 12 Hours) Vital Signs Temp Pulse Resp BP Pulse Ox 08/07/20 09:00 38.4 C H 108 H 22 94 08/07/20 08:29 38.3 C H 108 H 16 128/74 95 08/07/20 08:00 38.5 C H 111 H 19 83 L 08/07/20 07:29 38.8 C H 112 H 23 122/71 94 08/07/20 07:00 39.0 C H 116 H 21 92 08/07/20 06:29 39.0 C H 115 H 24 152/79 H 92 08/07/20 05:29 38.7 C H 111 H 25 H 152/88 H 92 08/07/20 04:29 38.3 C H 108 H 18 156/90 H 93 08/07/20 03:29 38.0 C H 102 H 20 131/79 91 08/07/20 02:29 38.0 C H 98 H 19 117/74 92 08/07/20 01:29 37.5 C 100 H 9 L 136/85 78 L 08/07/20 00:29 37.5 C 96 H 19 114/76 95 08/06/20 23:59 100 H 08/06/20 23:29 37.8 C H 99 H 19 116/66 96 08/06/20 22:29 38.3 C H 106 H 24 151/89 H 96 08/06/20 21:29 38.3 C H 106 H 23 142/88 H 99 Laboratory Results Laboratory Results - last 24 hr 08/06/20 08/06/20 08/06/20 11:18 13:00 16:10 WBC RBC Hgb Hct MCV MCH MCHC RDW Std Deviation RDW Coeff of Nicky Plt Count MPV APTT 42.8 H PTT Ratio 1.6 Sodium Potassium Chloride Carbon Dioxide Anion Gap BUN Creatinine Est Cr Clr Drug Dosing Est GFR ( Amer) Est GFR (Non-Af Amer) BUN/Creatinine Ratio Glucose POC Glucose 176 H 221 H Calcium Phosphorus Magnesium Total Creatine Kinase Albumin 08/06/20 08/06/20 08/06/20 18:49 19:59 20:42 WBC RBC Hgb Hct MCV MCH MCHC RDW Std Deviation RDW Coeff of Nicky Plt Count MPV APTT 42.9 H PTT Ratio 1.6 Sodium 131 L Potassium 4.4 Chloride 100 Carbon Dioxide 23 Anion Gap 8.0 BUN 58 H Creatinine 6.14 H* D Est Cr Clr Drug Dosing 25.3 Est GFR ( Amer) 12.1 Est GFR (Non-Af Amer) 10.4 BUN/Creatinine Ratio 9.4 L Glucose 150 H POC Glucose 197 H Calcium 7.7 L Phosphorus Magnesium Total Creatine Kinase Albumin 08/07/20 08/07/20 08/07/20 02:42 02:42 02:42 WBC 11.72 H RBC 3.28 L Hgb 9.3 L Hct 27.9 L MCV 85.1 MCH 28.4 MCHC 33.3 RDW Std Deviation 43.4 RDW Coeff of Nciky 13.8 Plt Count 207 MPV 12.1 H APTT 44.4 H PTT Ratio 1.7 Sodium 132 L Potassium 3.8 Chloride 99 Carbon Dioxide 23 Anion Gap 10.0 BUN 61 H Creatinine 6.21 H* Est Cr Clr Drug Dosing 25.0 Est GFR ( Amer) 11.9 Est GFR (Non-Af Amer) 10.3 BUN/Creatinine Ratio 9.8 L Glucose 169 H POC Glucose Calcium 7.8 L Phosphorus 6.0 H D Magnesium 1.8 Total Creatine Kinase 241 Albumin 1.8 L 08/07/20 07:42 WBC RBC Hgb Hct MCV MCH MCHC RDW Std Deviation RDW Coeff of Nicky Plt Count MPV APTT PTT Ratio Sodium Potassium Chloride Carbon Dioxide Anion Gap BUN Creatinine Est Cr Clr Drug Dosing Est GFR ( Amer) Est GFR (Non-Af Amer) BUN/Creatinine Ratio Glucose POC Glucose 202 H Calcium Phosphorus Magnesium Total Creatine Kinase Albumin PG Care Time/CCT Total # of Minutes Spent Total Time Spent with Patient: Total time spent is greater than 50% in coordination of care (as documented) at patient's floor/unit and/or counseling patient: Coding Level of Care Code 96056 Subseq Hosp Care Lvl 3 Diagnoses Acute kidney injury N17.9 Chronic kidney disease, stage IV (severe) N18.4 Pulmonary edema J81.1 Hypertension I10 Sepsis A41.9 Sepsis acute organ dysfunction status: without acute organ dysfunction Sepsis type: sepsis due to unspecified organism (1) Sepsis Sepsis acute organ dysfunction status: without acute organ dysfunction Sepsis type: sepsis due to unspecified organism Qualified Code(s): A41.9 - Sepsis, unspecified organism
--- NOTE | 2020-08-07 10:53 | Critical Care Progress Note ---
Date of Service August 07, 2020 Assessment & Plan (1) Admitted to intensive care unit: Reason Critically Ill: 40-year-old male with likely sepsis from LEFT foot ulcer with cellulitis with ongoing tachycardia, fevers, and new onset of hypoxia requiring close hemodynamic monitoring after initiation of Cardizem drip. NEURO - * CAM ICU: NEGATIVE * Pain: Dilaudid as needed CARDIAC/VASCULAR - * Tachycardia: Likely sepsis mediated. Echo with LVEF of 50 to 55%. Borderline global hypokinesis of the left ventricle. Right ventricle normal in size and function. Elevated right atrial pressures noted. Mild troponin elevation noted to 0.284. Likely demand ischemia. Continue carvedilol for history of hypertension. RESPIRATORY -acute hypoxia likely related to atelectasis and pulmonary edema. Currently on a Bumex drip. Concern for pulmonary embolism. Lower extremity ultrasound on 08/04/2020 are negative for DVTs of the right or left lower extremity. Will obtain a V/Q scan due to concerns of PE. Maybe difficult to interpret in setting of atelectasis. Will obtain noncontrast CT chest to e valuate for signs of infection in the chest given ongoing fevers and hypoxia. GI/NUTRITION - * Diabetic and heart healthy diet is encouraged. RENAL/LYTES -history of CKD stage IV. Continue Bumex drip per nephrology. Baseline creatinine 2.5-3. Lisinopril held due to BJ. Considering dialysis catheter placement. Nephrology will discuss with vascular surgery regarding permacath placement. Electrolytes stable. - * Patten in place - Strict I&Os. ENDO - * Insulin-dependent diabetes * BSGs per unit protocol. ISS --> gtt per unit policy. HEME - * Hemoglobin trending down slowly. We will continue to keep an eye on this. * Patient with baseline anemia likely secondary to chronic kidney disease * Will discontinue heparin drip if VQ scan is low suspicion for pulmonary embolism. ID - * Severe sepsis: * Group G streptococcus noted on blood cultures from 08/03/2020. Repeat blood cultures from 08/04/2020 are negative. Urinalysis from 08/03/2020 not suspicious for UTI. * Wound cultures noted in the Ortho note. * Pro-Julius from 08/05/2020 elevated at 1.70. * Will consult infectious disease (telehealth) continue broad-spectrum antibiotics. CT chest without contrast ordered as noted above. * Antibiotics changed to Rocephin 08/07/2020 and doxycycline. Covering for atypical organisms as well. Repeating blood cultures today. LINES/IV ACCESS - * PIVs x3 * Patten DVT PROPHYLAXIS - * Heparin drip * SCDs (2) Hypoxia: (3) Pulmonary edema: (4) Tachycardia: (5) Hypertension: (6) Acute kidney injury: (7) Elevated troponin: (8) Cellulitis of left lower extremity: (9) Sepsis: (10) Severe obstructive sleep apnea: Admission and Anticipated Discharge Date Admission Date: August 03, 2020 Subjective Patient seen and examined at bedside. Continues to have significant shivering and high-grade fevers. Hemodynamically stable at this time. Short of breath with exertion Review of Systems Review of Systems: All systems reviewed & are unremarkable except as noted in HPI & below Physical Exam Physical Exam: General: Alert. Shivering. Skin: Warm, dry, Head: Atraumatic Ears, nose, mouth and throat: airway patent Cardiovascular: Normal peripheral perfusion Respiratory: no respiratory distress Gastrointestinal: Non distended Results & Data Results & Data ([facility]) Vital Signs (Past 12 Hours) Vital Signs Temp Pulse Resp BP Pulse Ox 08/07/20 09:00 101.1 F H 108 H 22 94 08/07/20 08:29 100.9 F H 108 H 16 128/74 95 08/07/20 08:00 101.3 F H 111 H 19 83 L 08/07/20 07:29 101.8 F H 112 H 23 122/71 94 08/07/20 07:00 102.2 F H 116 H 21 92 08/07/20 06:29 102.2 F H 115 H 24 152/79 H 92 08/07/20 05:29 101.7 F H 111 H 25 H 152/88 H 92 08/07/20 04:29 100.9 F H 108 H 18 156/90 H 93 08/07/20 03:29 100.4 F H 102 H 20 131/79 91 08/07/20 02:29 100.4 F H 98 H 19 117/74 92 08/07/20 01:29 99.5 F 100 H 9 L 136/85 78 L 08/07/20 00:29 99.5 F 96 H 19 114/76 95 08/06/20 23:59 100 H 08/06/20 23:29 100.0 F H 99 H 19 116/66 96 Vital signs, labs and imaging reviewed Coding Level of Care Code 00696 Subseq Hosp Care Lvl 3 Diagnoses Admitted to intensive care unit Z78.9 Hypoxia R09.02 Pulmonary edema J81.1 Tachycardia R00.0 Hypertension I10 Acute kidney injury N17.9 Elevated troponin R77.8 Cellulitis of left lower extremity L03.116 Sepsis A41.9 Sepsis acute organ dysfunction status: without acute organ dysfunction Sepsis type: sepsis due to unspecified organism Severe obstructive sleep apnea G47.33 (1) Sepsis Sepsis acute organ dysfunction status: without acute organ dysfunction Sepsis type: sepsis due to unspecified organism Qualified Code(s): A41.9 - Sepsis, unspecified organism
[2020-08-07 11:01] LABS: Partial Thromboplastin Ratio 1.4; Partial Thromboplastin Time 35.9 Seconds (21.0-31.0)
[2020-08-07] MEDS ORDERED: HEPARIN SOD (PORCINE) 1000 UNIT/ML IV ONE (11:45)
--- NOTE | 2020-08-07 11:46 | Ultrasound Report ---
RENAL ULTRASOUND CLINICAL HISTORY: [email or web address] COMPARISON STUDY: CT of the abdomen and pelvis January 11, 2020. Renal ultrasound April 20, 2020. TECHNIQUE: Sonography of the kidneys and the urinary bladder was performed. FINDINGS: The right kidney measures 14.1 cm in maximal dimension and the left measures 13.3 cm. There is no hydronephrosis. No renal calculus or mass is identified. Bladder is collapsed, containing a Fo jade catheter. There may be slight increased renal echogenicity. Renal size and cortical thickness are normal. IMPRESSION: 1. No hydronephrosis. 2. Mild increased renal echogenicity. Normal renal size and cortical thickness. ACT 112: Negative or not required by law. Electronically signed by: Aroldo Nichole M.D. 08/07/2020 11:44 AM
--- NOTE | 2020-08-07 12:32 | Nuclear Medicine Report ---
NM pul perfusion CLINICAL HISTORY: Hypoxia. Possible pulmonary embolism. COMPARISON STUDY: Chest x-ray dated 08/05/2020 FINDINGS: The patient was injected with 5.1 mCi of technetium 99m MAA. Perfusion images in multiple obliquities were obtained. There is no correlate on ventilation scans, as well as ventilation scans are not being performed duri ng the kenna virus pandemic. There are no moderate or large perfusion defects. This study would be characterized as low probability for pulmonary embolism. IMPRESSION: 1. Perfusion only study characterized as low probability for pulmonary embolism. ACT 112: Negative or not required by law. Electronically signed by: Denton Patton M.D. 08/07/2020 12:30 PM
[2020-08-07] MEDS: DOXYCYCLINE HYCLATE 100 MG in DEXTROSE 5% 100 ML IV SCH ×2 (12:33→21:34)
[2020-08-07] MEDS: INSULIN GLARGINE SOLOSTAR 100 UNITS/ML 3 ML PEN SC SCH (12:39)
--- NOTE | 2020-08-07 12:43 | CT Scan Report ---
CT chest diagnostic wo con CLINICAL HISTORY: hypoxia, pneumonia? COMPARISON STUDY: No previous studies for comparison. CT DOSE: 1238.19 mGy.cm TECHNIQUE: CT of the thorax was performed from the thoracic inlet to the lung bases. Images are revi ewed in the axial, sagittal, and coronal planes. IV contrast was not administered for this examinatio n. A dose lowering technique was utilized adhering to the principles of ALARA. FINDINGS: There is no axillary, supra clavicle or internal mammary lymphadenopathy seen. Multiple mediastinal lymph nodes are seen measuring less than 1 cm in short axis, nonpathological by CT size criteria. Thyroid: Imaged portions of the thyroid gland are normal in appearance. Esophagus is normal. Thoracic aorta: The thoracic aorta is normal in course and caliber, noting standard 3 vessel arch bashir laurie. Mild dilatation of the main pulmonary artery measuring 3.2 cm in diameter which could be seen in pulm onary hypertension. Heart: The heart is normal in size and configuration, without pericardial effusion. Moderate calcific ations within left anterior descending artery are seen, too prominent for patient's age group. Lungs and pleural spaces: Tracheobronchial tree is patent. Patchy mixed airspace and groundglass opacities are seen throughout bilateral lungs. Mild compressive atelectasis is seen in the dependent portions of bilateral lower lobes. Small pleural effusion is se en bilaterally. Upper abdomen: Limited evaluation of abdominal viscera shows slightly prominent epigastric lymph nod e measuring 1.2 cm in short axis (4/297) and 1.7 cm lymph nodes within ninfa hepatis (4/311). Gallbla dder is surgically absent. Skeletal structures: Degenerative changes of the spine. IMPRESSION: 1. Opacities throughout bilateral lungs could represent multifocal pneumonia; atypical pneumonia/ CO VID cannot be rule out. Short-term follow-up in 4-6 weeks is recommended to document resolution. 2. Coronary calcifications, too prominent for patient's age group. Please correlate above-mentioned findings with cardiology evaluation. 3. Questionable prominent lymph nodes within upper abdomen. Further evaluation with CT of the abdome n might be considered. 4. Dilatation of pulmonary artery could be seen in pulmonary hypertension. ACT 112: Positive. There are findings on this exam that require communication between the performing entity and the patient following Patient Test Result Information Act ([place] Act 112) guidelines. The above report was generated using voice recognition software. It may contain grammatical, syntax o r spelling errors. Electronically signed by: Do Clark DO 08/07/2020 12:42 PM
[2020-08-07 13:36] LABS: Appearance Urine Clear (Clear); Bacteria Urine Automated Negative (Negative); Bilirubin Urine Negative (Negative); Blood Urine 1+ (Negative); Color Urine Yellow; Glucose Urine UA Negative (Negative); Ketones Urine Negative (Negative); Leukocyte Esterase Urine Negative (Negative); Nitrite Urine Negative (Negative); Protein Urine 2+ (Negative); Specific Gravity Urine 1.011 (1.000-1.030); Urobilinogen Urine Negative (Negative); pH Urine 5.5 (4.5-7.5)
[2020-08-07 15:48] LABS: Adenovirus PCR Not Detected (NotDetected); Bordetella parapertussis PCR Not Detected (NotDetected); Bordetella pertussis PCR Not Detected (NotDetected); Chlamydia pneumoniae PCR Not Detected (NotDetected); Coronavirus 229E PCR Not Detected (NotDetected); Coronavirus CoV-2 (COVID19)PCR Not Detected (NotDetected); Coronavirus HKU1 PCR Not Detected (NotDetected); Coronavirus NL63 PCR Not Detected (NotDetected); Coronavirus OC43PCR Not Detected (NotDetected); Human Metapneumovirus PCR Not Detected (NotDetected); Influenza A PCR Not Detected (NotDetected); Influenza B PCR Not Detected (NotDetected); Mycoplasma pneumoniae PCR Not Detected (NotDetected); Parainfluenza Virus 1 PCR Not Detected (NotDetected); Parainfluenza Virus 2 PCR Not Detected (NotDetected); Parainfluenza Virus 3 PCR Not Detected (NotDetected); Parainfluenza Virus 4 PCR Not Detected (NotDetected); Respiratory Syncytial VirusPCR Not Detected (NotDetected); Rhinovirus/Enterovirus PCR Not Detected (NotDetected)
[2020-08-07] MEDS: cefTRIAXone SODIUM 2,000 MG in DEXTROSE 5% 50 ML IV SCH (16:49)
[2020-08-07 17:24] LABS: BUN Creatinine Ratio 9.8 (10-20); Calcium 8.8 mg/dl (8.5-10.1); Creatinine Clr Calc Pharmacy 24.5 ml/min; Est GFR (African American) 11.7 ml/min; Est GFR (Non-African American) 10.1 ml/min; Potassium 4.2 mmol/L (3.5-5.1)
--- NOTE | 2020-08-07 18:42 | Hospitalist Progress Note ---
Date of Service August 07, 2020 Assessment & Plan (1) Pneumonia: CT chest reviewed - extensive b/l pneumonia (and/or edema). is this the cause of refractory fever??? Group G strep would be unusual pathogen for the lungs. Atypical process? (legionella urine ag sent; mycoplasma on biofire negative) Noninfectious process (vasculitis?). Tickborne? (anaplasmosis can cause pneumonia) other? Biofire today completely negative including COVID-19. Zosyn changed to rocephin 2gm daily. Added doxy for atypical coverage. No evidence of MRSA infection. Check inflammatory markers including procal in am. Appreciate pulmonary input. (2) Bacteremia due to Streptococcus: Bacteremia with severe sepsis. No septic shock fortunately. Has not required pressors since admission. 2nd group G strep. source - cellulitis of LLE along with infected left foot plantar diabetic ulcer. concern for osteomyelitis of 5th metatarsal head as well. Remains on zosyn and daptomycin. Ongoing fever unlikely from group G strep bacteremia as repeat blood cx's 08/04 n egative and LLE cellulitis is improved. [id number] repeat blood cx's obtained today. Left tib-fib CT without nec fasc, abscess, gas formation, etc. No clinical signs of those entities on exam either. Echo, although limited, without signs of obvious valvular vegetations. (3) Diabetic foot ulcer associated with type 2 diabetes mellitus: Left 5th metatarsal head diabetic foot ulcer with cellulitis of the left lower extremity. Blood cultures with group G strep - thus, this is likely pathogen causing the infection in ulcer/LLE. CT of left tib-fib - no signs of deeper infection (nec fasc, abscess, etc). CT of left foot - some concern for osteomyelitis of 5th metatarsal head region. Ultimately MRI will be needed to r/o osteo but too unstable/ill for such at this time. Continue local wound care. Podiatry consult appreciated. Continue IV antibiotics - change zosyn to rocephin 2gm daily. d/c daptomycin - no evidence of MRSA or enterococcal infection this admission. (4) Cellulitis of left lower extremity: As above Resolved on exam (5) Acute kidney injury: Baseline Creatinine about 2.5 to 2.8. Now >6. Non-oliguric - 5000cc of UOP with bumex drip today. Likely ATN from septicemia/bacteremia. No evidence of obstruction. Cont preston. Nephro consult appreciated. I spoke with Dr Balbunea - given his UOP today will d/c bumex drip. Repeat BMP in am. HOPING for renal recovery so that we can avoid HD. No indication for acute HD today, however. (6) Acute respiratory failure with hypoxia and hypercapnia: 2nd to pulmonary edema and/or pneumonia. See "pneumonia" above. See "BJ" above. Volume status has improved with bumex IV since the weekend. Appreciate ICU and nephrology assistance on this. O2 has been weaned with improvement in pulmonary edema. BIPAP at HS. (7) Acute pulmonary edema: Improved with bumex infusion. Respiratory status has improved w/ diuresis. Echo with low-normal EF 50-55%. d/c bumex drip given the copious UOP today. BMP in am. (8) SVT (supraventricular tachycardia): Prior to transfer to ICU he was having sinus tach interspersed with either atrial tachycardia or even a 2:1 atrial flutter. He had not responded to IV or PO beta blockers. He was placed on cardizem infusion with decent response to this. No atrial rhythms since that time. Cardizem has been d/c for several days. Echo noted. TSH wnl. (9) Severe obstructive sleep apnea: Was scheduled to get sleep study in the near-future as outpatient. Cont HS BIPAP. (10) Hypomagnesemia: repleted and now normal (11) Chronic kidney disease, stage IV (severe): baseline Cr 2.5 to 2.8. now with BJ/ARF. see above. (12) HTN (hypertension): Continue coreg. Holding CARMEN and Amlodipine. (13) Uncontrolled type 2 diabetes mellitus: Hold semaglutide. a1c >8%. novolog coverage. ICU glycemic protocol in place. (14) Mixed hyperlipidemia: hold Lipitor 80 mg daily LFTs remain wnl (15) BPH loc w urin obs/LUTS: hold tamsulosin due to preston and BPs low-normal (16) Diabetic nephropathy associated with type 2 diabetes mellitus: baseline CKD stage 4 (17) Elevated troponin: Likely myocardial demand ischemia in setting of bacteremia, ? a tach vs a flutter vs other, serious illness. Can't fully rule out an ACS but doubt such. (18) Morbid obesity with BMI of 45.0-49.9, adult: BMI 48/49 (19) Multiorgan failure: (20) DM neuropathy, painful: in light of acute renal failure would continue to HOLD the lyrica (21) DVT prophylaxis: heparin infusion stopped; v/q low prob for PE, and recent LE dopplers neg for DVT transition to SC heparin for DVT proph updated pt's by phone care d/w Dr Pereyra care d/w Dr Balbuena transfer to PCU today total time today 70 minutes with very, very complex care coordination Admission and Anticipated Discharge Date Admission Date: August 03, 2020 Subjective tele - NSR or sinus tach; no atrial dysrhythmia patient with active rigors during the visit continues with fevers, chills, diffuse arthralgias and myalgias mild cough only mild dyspnea w/ exertion only orthopnea improved appetite fair patient denies any tick-borne exposure; spends minimal time outdoors, and they live in [facility] no recent travel no sick contacts outside the hospital recently UOP copious today - 5000cc+ Review of Systems Constitutional: + fever, + chills, + sweats, + body aches, + fatigue and + weakness Ear, Nose, Mouth, Throat: no sore throat Respiratory: as per Subjective / HPI Cardiovascular: no chest pain Gastrointestinal: no abdominal pain, no vomiting and no diarrhea/loose stools Integumentary: no rash Physical Exam Constitutional: + acute distress (severe rigors), + ill appearing and + morbidly obese; no altered mental status ENMT: external ear and nose normal, oropharynx normal Respiratory: no respiratory distress Auscultation: + diminished lung sounds (Bases) and + crackles (bases); no wheezes Cardiovascular: Rate/Rhythm: regular rhythm and + tachycardic Heart Sounds: normal S1 and normal S2; no murmur Vessels: posterior tibial pulses present and dorsalis pedis pulses present; no JVD (difficult to assess due to neck size ) Extremities: + edema (1+ on left, trace on right ) Gastrointestinal (Abdomen): normal bowel sounds, soft, nontender, no hepatosplenomegaly Skin: + rash (Stasis dermatitis LLE longoria; cellulitis - LLE - again improved ) no new areas of skin rash Psychiatric: Orientation: alert and oriented x 3 Results & Data Results & Data ([facility]) Vital Signs (Past 12 Hours) Vital Signs Temp Pulse Resp BP Pulse Ox 08/07/20 16:19 38.4 C H 103 H 19 138/90 96 08/07/20 16:00 38.4 C H 103 H 22 96 08/07/20 15:00 38.2 C H 103 H 17 98 08/07/20 14:00 38.2 C H 101 H 21 98 08/07/20 13:31 38.1 C H 102 H 25 H 127/77 93 08/07/20 13:00 38.2 C H 106 H 22 86 L 08/07/20 12:31 38.3 C H 106 H 19 139/82 97 08/07/20 12:29 107 H 5 L 08/07/20 10:00 38.2 C H 104 H 23 95 08/07/20 09:36 38.3 C H 107 H 25 H 133/78 93 08/07/20 09:00 38.4 C H 108 H 22 94 08/07/20 08:29 38.3 C H 108 H 16 128/74 95 08/07/20 08:00 38.5 C H 111 H 19 83 L 08/07/20 07:29 38.8 C H 112 H 23 122/71 94 08/07/20 07:00 39.0 C H 116 H 21 92 Laboratory Results Laboratory Results - last 24 hr 08/06/20 08/06/20 08/06/20 18:49 19:59 20:42 WBC RBC Hgb Hct MCV MCH MCHC RDW Std Deviation RDW Coeff of Nicky Plt Count MPV APTT 42.9 H PTT Ratio 1.6 Sodium 131 L Potassium 4.4 Chloride 100 Carbon Dioxide 23 Anion Gap 8.0 BUN 58 H Creatinine 6.14 H* D Est Cr Clr Drug Dosing 25.3 Est GFR ( Amer) 12.1 Est GFR (Non-Af Amer) 10.4 BUN/Creatinine Ratio 9.4 L Glucose 150 H POC Glucose 197 H Calcium 7.7 L Phosphorus Magnesium Total Creatine Kinase Albumin Urine Color Urine Appearance Urine pH Ur Specific [place] Urine Protein Urine Glucose (UA) Urine Ketones Urine Blood Urine Nitrite Urine Bilirubin Urine Urobilinogen Ur Leukocyte Esterase Urine WBC (Auto) Urine RBC (Auto) U Hyaline Cast (Auto) U Epithel Cells (Auto) Urine Bacteria (Auto) Urine Yeast RODGER Screen ANCA SS-A/Ro Antibody SS-B/La Antibody Sm ([place]) Antibody LAYOUT INSPECTOR Antibody Scl-70 Scleroderma Ab Anti-ds DNA (Crithidia) Chromatin Antibody Anti-Centromere Ab Thyroid Antimicrosomal Glomerular Base Memb Ab Anti-Cardiolipin IgG Ab Anti-Cardiolipin IgA Ab Anti-Cardiolipin IgM Ab Complement C3 Complement C4 Adenovirus (PCR) B. pertussis DNA (PCR) B.parapertussis DNA PCR C. pneumoniae DNA (PCR) Coronavirus OC43 (PCR) Coronavirus HKU1 (PCR) Coronavirus 229E (PCR) SARS-CoV-2 (PCR) Coronavirus NL63 (PCR) Human Metapneumovir PCR Influenza Type A (PCR) Influenza Type B (PCR) Urine Legionella Ag M. pneumoniae (PCR) Parainfluenza 1 (PCR) Parainfluenza 2 (PCR) Parainfluenza 3 (PCR) Parainfluenza 4 (PCR) RSV (PCR) Entero/Rhino (PCR) 08/07/20 08/07/20 08/07/20 02:42 02:42 02:42 WBC 11.72 H RBC 3.28 L Hgb 9.3 L Hct 27.9 L MCV 85.1 MCH 28.4 MCHC 33.3 RDW Std Deviation 43.4 RDW Coeff of Nicky 13.8 Plt Count 207 MPV 12.1 H APTT 44.4 H PTT Ratio 1.7 Sodium 132 L Potassium 3.8 Chloride 99 Carbon Dioxide 23 Anion Gap 10.0 BUN 61 H Creatinine 6.21 H* Est Cr Clr Drug Dosing 25.0 Est GFR ( Amer) 11.9 Est GFR (Non-Af Amer) 10.3 BUN/Creatinine Ratio 9.8 L Glucose 169 H POC Glucose Calcium 7.8 L Phosphorus 6.0 H D Magnesium 1.8 Total Creatine Kinase 241 Albumin 1.8 L Urine Color Urine Appearance Urine pH Ur Specific [place] Urine Protein Urine Glucose (UA) Urine Ketones Urine Blood Urine Nitrite Urine Bilirubin Urine Urobilinogen Ur Leukocyte Esterase Urine WBC (Auto) Urine RBC (Auto) U Hyaline Cast (Auto) U Epithel Cells (Auto) Urine Bacteria (Auto) Urine Yeast RODGER Screen ANCA SS-A/Ro Antibody SS-B/La Antibody Sm ([place]) Antibody LAYOUT INSPECTOR Antibody Scl-70 Scleroderma Ab Anti-ds DNA (Crithidia) Chromatin Antibody Anti-Centromere Ab Thyroid Antimicrosomal Glomerular Base Memb Ab Anti-Cardiolipin IgG Ab Anti-Cardiolipin IgA Ab Anti-Cardiolipin IgM Ab Complement C3 Complement C4 Adenovirus (PCR) B. pertussis DNA (PCR) B.parapertussis DNA PCR C. pneumoniae DNA (PCR) Coronavirus OC43 (PCR) Coronavirus HKU1 (PCR) Coronavirus 229E (PCR) SARS-CoV-2 (PCR) Coronavirus NL63 (PCR) Human Metapneumovir PCR Influenza Type A (PCR) Influenza Type B (PCR) Urine Legionella Ag M. pneumoniae (PCR) Parainfluenza 1 (PCR) Parainfluenza 2 (PCR) Parainfluenza 3 (PCR) Parainfluenza 4 (PCR) RSV (PCR) Entero/Rhino (PCR) 08/07/20 08/07/20 08/07/20 07:42 10:37 12:38 WBC RBC Hgb Hct MCV MCH MCHC RDW Std Deviation RDW Coeff of Nicky Plt Count MPV APTT 35.9 H PTT Ratio 1.4 Sodium Potassium Chloride Carbon Dioxide Anion Gap BUN Creatinine Est Cr Clr Drug Dosing Est GFR ( Amer) Est GFR (Non-Af Amer) BUN/Creatinine Ratio Glucose POC Glucose 202 H 233 H Calcium Phosphorus Magnesium Total Creatine Kinase Albumin Urine Color Urine Appearance Urine pH Ur Specific [place] Urine Protein Urine Glucose (UA) Urine Ketones Urine Blood Urine Nitrite Urine Bilirubin Urine Urobilinogen Ur Leukocyte Esterase Urine WBC (Auto) Urine RBC (Auto) U Hyaline Cast (Auto) U Epithel Cells (Auto) Urine Bacteria (Auto) Urine Yeast RODGER Screen ANCA SS-A/Ro Antibody SS-B/La Antibody Sm ([place]) Antibody LAYOUT INSPECTOR Antibody Scl-70 Scleroderma Ab Anti-ds DNA (Crithidia) Chromatin Antibody Anti-Centromere Ab Thyroid Antimicrosomal Glomerular Base Memb Ab Anti-Cardiolipin IgG Ab Anti-Cardiolipin IgA Ab Anti-Cardiolipin IgM Ab Complement C3 Complement C4 Adenovirus (PCR) B. pertussis DNA (PCR) B.parapertussis DNA PCR C. pneumoniae DNA (PCR) Coronavirus OC43 (PCR) Coronavirus HKU1 (PCR) Coronavirus 229E (PCR) SARS-CoV-2 (PCR) Coronavirus NL63 (PCR) Human Metapneumovir PCR Influenza Type A (PCR) Influenza Type B (PCR) Urine Legionella Ag M. pneumoniae (PCR) Parainfluenza 1 (PCR) Parainfluenza 2 (PCR) Parainfluenza 3 (PCR) Parainfluenza 4 (PCR) RSV (PCR) Entero/Rhino (PCR) 08/07/20 08/07/20 08/07/20 13:00 13:20 16:17 WBC RBC Hgb Hct MCV MCH MCHC RDW Std Deviation RDW Coeff of Nicky Plt Count MPV APTT PTT Ratio Sodium Potassium Chloride Carbon Dioxide Anion Gap BUN Creatinine Est Cr Clr Drug Dosing Est GFR ( Amer) Est GFR (Non-Af Amer) BUN/Creatinine Ratio Glucose POC Glucose 268 H Calcium Phosphorus Magnesium Total Creatine Kinase Albumin Urine Color Yellow Urine Appearance Clear Urine pH 5.5 Ur Specific [place] 1.011 Urine Protein 2+ H Urine Glucose (UA) Negative Urine Ketones Negative Urine Blood 1+ H Urine Nitrite Negative Urine Bilirubin Negative Urine Urobilinogen Negative Ur Leukocyte Esterase Negative Urine WBC (Auto) 1-5 Urine RBC (Auto) 5-10 H U Hyaline Cast (Auto) 1-5 U Epithel Cells (Auto) 5-10 H Urine Bacteria (Auto) Negative Urine Yeast Not Reportable RODGER Screen ANCA SS-A/Ro Antibody SS-B/La Antibody Sm ([place]) Antibody LAYOUT INSPECTOR Antibody Scl-70 Scleroderma Ab Anti-ds DNA (Crithidia) Chromatin Antibody Anti-Centromere Ab Thyroid Antimicrosomal Glomerular Base Memb Ab Anti-Cardiolipin IgG Ab Anti-Cardiolipin IgA Ab Anti-Cardiolipin IgM Ab Complement C3 Complement C4 Adenovirus (PCR) Not Detected B. pertussis DNA (PCR) Not Detected B.parapertussis DNA PCR Not Detected C. pneumoniae DNA (PCR) Not Detected Coronavirus OC43 (PCR) Not Detected Coronavirus HKU1 (PCR) Not Detected Coronavirus 229E (PCR) Not Detected SARS-CoV-2 (PCR) Not Detected Coronavirus NL63 (PCR) Not Detected Human Metapneumovir PCR Not Detected Influenza Type A (PCR) Not Detected Influenza Type B (PCR) Not Detected Urine Legionella Ag M. pneumoniae (PCR) Not Detected Parainfluenza 1 (PCR) Not Detected Parainfluenza 2 (PCR) Not Detected Parainfluenza 3 (PCR) Not Detected Parainfluenza 4 (PCR) Not Detected RSV (PCR) Not Detected Entero/Rhino (PCR) Not Detected 08/07/20 08/07/20 08/07/20 16:40 16:40 17:30 WBC RBC Hgb Hct MCV MCH MCHC RDW Std Deviation RDW Coeff of Nicky Plt Count MPV APTT PTT Ratio Sodium 129 L Potassium 4.2 Chloride 95 L Carbon Dioxide 24 Anion Gap 10.0 BUN 62 H Creatinine 6.31 H* Est Cr Clr Drug Dosing 24.5 Est GFR ( Amer) 11.7 Est GFR (Non-Af Amer) 10.1 BUN/Creatinine Ratio 9.8 L Glucose 227 H POC Glucose Calcium 8.8 Phosphorus Magnesium Total Creatine Kinase Albumin Urine Color Urine Appearance Urine pH Ur Specific [place] Urine Protein Urine Glucose (UA) Urine Ketones Urine Blood Urine Nitrite Urine Bilirubin Urine Urobilinogen Ur Leukocyte Esterase Urine WBC (Auto) Urine RBC (Auto) U Hyaline Cast (Auto) U Epithel Cells (Auto) Urine Bacteria (Auto) Urine Yeast RODGER Screen Pending ANCA Pending SS-A/Ro Antibody Pending SS-B/La Antibody Pending Sm ([place]) Antibody Pending LAYOUT INSPECTOR Antibody Pending Scl-70 Scleroderma Ab Pending Anti-ds DNA (Crithidia) Pending Chromatin Antibody Pending Anti-Centromere Ab Pending Thyroid Antimicrosomal Pending Glomerular Base Memb Ab Pending Anti-Cardiolipin IgG Ab Pending Anti-Cardiolipin IgA Ab Pending Anti-Cardiolipin IgM Ab Pending Complement C3 Pending Complement C4 Pending Adenovirus (PCR) B. pertussis DNA (PCR) B.parapertussis DNA PCR C. pneumoniae DNA (PCR) Coronavirus OC43 (PCR) Coronavirus HKU1 (PCR) Coronavirus 229E (PCR) SARS-CoV-2 (PCR) Coronavirus NL63 (PCR) Human Metapneumovir PCR Influenza Type A (PCR) Influenza Type B (PCR) Urine Legionella Ag Pending M. pneumoniae (PCR) Parainfluenza 1 (PCR) Parainfluenza 2 (PCR) Parainfluenza 3 (PCR) Parainfluenza 4 (PCR) RSV (PCR) Entero/Rhino (PCR) Diagnostic Findings Chest CT 08/07/20 10:35 CT chest diagnostic wo con CLINICAL HISTORY: hypoxia, pneumonia? COMPARISON STUDY: No previous studies for comparison. CT DOSE: 1238.19 mGy.cm TECHNIQUE: CT of the thorax was performed from the thoracic inlet to the lung bases. Images are reviewed in the axial, sagittal, and coronal planes. IV contrast was not administered for this examination. A dose lowering technique was utilized adhering to the principles of ALARA. FINDINGS: There is no axillary, supra clavicle or internal mammary lymphadenopathy seen. Multiple mediastinal lymph nodes are seen measuring less than 1 cm in short axis, nonpathological by CT size criteria. Thyroid: Imaged portions of the thyroid gland are normal in appearance. Esophagus is normal. Thoracic aorta: The thoracic aorta is normal in course and caliber, noting standard 3 vessel arch anatomy. Mild dilatation of the main pulmonary artery measuring 3.2 cm in diameter which could be seen in pulmonary hypertension. Heart: The heart is normal in size and configuration, without pericardial effusion. Moderate calcifications within left anterior descending artery are seen, too prominent for patient's age group. Lungs and pleural spaces: Tracheobronchial tree is patent. Patchy mixed airspace and groundglass opacities are seen throughout bilateral lungs. Mild compressive atelectasis is seen in the dependent portions of bilateral lower lobes. Small pleural effusion is seen bilaterally. Upper abdomen: Limited evaluation of abdominal viscera shows slightly prominent epigastric lymph node measuring 1.2 cm in short axis (4/297) and 1.7 cm lymph nodes within ninfa hepatis (4/311). Gallbladder is surgically absent. Skeletal structures: Degenerative changes of the spine. IMPRESSION: 1. Opacities throughout bilateral lungs could represent multifocal pneumonia; atypical pneumonia/ COVID cannot be rule out. Short-term follow-up in 4-6 weeks is recommended to document resolution. 2. Coronary calcifications, too prominent for patient's age group. Please correlate above-mentioned findings with cardiology evaluation. 3. Questionable prominent lymph nodes within upper abdomen. Further evaluation with CT of the abdomen might be considered. 4. Dilatation of pulmonary artery could be seen in pulmonary hypertension. ACT 112: Positive. There are findings on this exam that require communication between the performing entity and the patient following Patient Test Result Information Act ([place] Act 112) guidelines. The above report was generated using voice recognition software. It may contain grammatical, syntax or spelling errors. Electronically signed by: Do Calrk DO 08/07/2020 12:42 PM Pulmonary Perfusion Imaging 08/07/20 11:00 NM pul perfusion CLINICAL HISTORY: Hypoxia. Possible pulmonary embolism. COMPARISON STUDY: Chest x-ray dated 08/05/2020 FINDINGS: The patient was injected with 5.1 mCi of technetium 99m MAA. Perfusion images in multiple obliquities were obtained. There is no correlate on ventilation scans, as well as ventilation scans are not being performed during the kenna virus pandemic. There are no moderate or large perfusion defects. This study would be characterized as low probability for pulmonary embolism. IMPRESSION: 1. Perfusion only study characterized as low probability for pulmonary embolism. ACT 112: Negative or not required by law. Electronically signed by: Denton Patton M.D. 08/07/2020 12:30 PM Renal Ultrasound 08/07/20 11:00 RENAL ULTRASOUND CLINICAL HISTORY: [id number]/[id number] COMPARISON STUDY: CT of the abdomen and pelvis January 11, 2020. Renal ultrasound April 20, 2020. TECHNIQUE: Sonography of the kidneys and the urinary bladder was performed. FINDINGS: The right kidney measures 14.1 cm in maximal dimension and the left measures 13.3 cm. There is no hydronephrosis. No renal calculus or mass is identified. Bladder is collapsed, containing a Preston catheter. There may be slight increased renal echogenicity. Renal size and cortical thickness are normal. IMPRESSION: 1. No hydronephrosis. 2. Mild increased renal echogenicity. Normal renal size and cortical thickness. ACT 112: Negative or not required by law. Electronically signed by: Aroldo Nichole M.D. 08/07/2020 11:44 AM PG Care Time/CCT Total # of Minutes Spent Total Time Spent with Patient: Total time spent is greater than 50% in coordination of care (as documented) at patient's floor/unit and/or counseling patient: Prolonged Care Time Prolonged Care Time: Yes Total Prolonged Care Time: 70 Coding Level of Care Code 52837 Subseq Hosp Care Lvl 3 (25 - SIGNIFICANT, SEPARATELY IDENTIFIABLE ) Diagnoses Pneumonia J18.9 Bacteremia due to Streptococcus R78.81; B95.5 Diabetic foot ulcer associated with type 2 diabetes mellitus E11.621; L97.529 Diabetic foot ulcer location: toe Laterality: left Non-pressure ulcer stage: unspecified non-pressure ulcer stage Cellulitis of left lower extremity L03.116 Acute kidney injury N17.9 Acute respiratory failure with hypoxia and hypercapnia J96.01; J96.02 Acute pulmonary edema J81.0 SVT (supraventricular tachycardia) I47.1 Severe obstructive sleep apnea G47.33 Hypomagnesemia E83.42 Chronic kidney disease, stage IV (severe) N18.4 HTN (hypertension) I10 Hypertension type: essential hypertension Uncontrolled type 2 diabetes mellitus E11.65 Glycemic state: with hyperglycemia Mixed hyperlipidemia E78.2 BPH loc w urin obs/LUTS N40.1 Diabetic nephropathy associated with type 2 diabetes mellitus E11.21 Elevated troponin R77.8 Morbid obesity with BMI of 45.0-49.9, adult E66.01; Z68.42 Multiorgan failure DM neuropathy, painful E11.40 DVT prophylaxis Z29.9 Additional Codes Prolonged Care Time - Prolonged Care Time: Yes ([id number]) Time Spent (min) 70 (1) Diabetic foot ulcer associated with type 2 diabetes mellitus Diabetic foot ulcer location: toe Laterality: left Non-pressure ulcer stage: unspecified non-pressure ulcer stage Qualified Code(s): E11.621 - Type 2 diabetes mellitus with foot ulcer; L97.529 - Non-pressure chronic ulcer of other part of left foot with unspecified severity (2) Uncontrolled type 2 diabetes mellitus Glycemic state: with hyperglycemia Qualified Code(s): E11.65 - Type 2 diabetes mellitus with hyperglycemia (3) HTN (hypertension) Hypertension type: essential hypertension Qualified Code(s): I10 - Essential (primary) hypertension
[2020-08-07] MEDS: HEPARIN SOD 5,000 UNIT/0.5 ML VIAL SQ SCH (21:33)
[2020-08-07] MEDS ORDERED: DAPTOmycin 650 MG in SYRINGE 0 ML IV SCH (22:00)
[2020-08-08] MEDS: HYDROmorphone INJ 0.5 MG/0.5 ML SYR IV PRN ×4 (01:44→18:57)
[2020-08-08 05:48] LABS: Hematocrit (blood only) 28.1 % (42-52); Hemoglobin 9.7 g/dL (14.0-18.0); Mean Corpuscular Hgb Conc 34.5 g/dL (32-36); Mean Corpuscular Volume 83.9 fL (80-100); Mean Platelet Volume 11.2 fL (7.4-10.4); Platelet Count 242 K/uL (130-400); RDW Coefficient of Variation 13.8 % (11.5-14.5); RDW Standard Deviation 42.1 fL (36.4-46.3); Red Blood Count 3.35 M/uL (4.7-6.1); White Blood Count 13.53 K/uL (4.8-10.8)
--- NOTE | 2020-08-08 05:59 | Orthopedic Progress Note ---
Date of Service a August 08, 2020 Assessment & Plan (1) Diabetic foot ulcer with osteomyelitis: Patient has chronic osteomyelitis right foot treated successfully with 8 week IV abx. Third and Fourth interspace wounds still present. There is no concern for left foot osteomyelitis clinically based on examination and recent labs. (2) Diabetic foot ulcer associated with type 2 diabetes mellitus: Left foot Ulcer evaluated at today's visit. It was decided to today wound would be debrided. Sharp debridement with out incident see noted below. Dry sterile dressing applied including santyl 4x4, laurence. Patient's will bring in off loading shoes previously dispensed. WOUND CULTURES ARE AVIALABLE AND SENSITIVIES NOTED IN RESULTS OF THIS NOTE Manners in which pressure reduction could be achieved were investigated. Off-l oading is a critical part of this patient's management. Factors which likely contribute to non-healing include: lack of adequate off- loading when supine, inadequately controlled infection, lack of adequate off- loading when ambulating, lack of adherence to diabetic footwear, a limited understanding of the disease of diabetes and its processes, lack of adherence to diabetic control measures. Today's procedure is an excisional debridement of deep tissue. There is a moderate amount of serosanguineous exudate draining from the ulcer. The ulcer base is described as containing has pink granulation. Necrotic or devitalized tissue is estimated to be present in approximately 60% of the pressure ulcer bed. The ulcer has been exposed full-thickness tissue. I have informed the patient of the risks and benefit of this procedure and they have had the opportunity to ask questions. Appropriate consent has been obtained. The patient refused site marking. The area was prepped and draped in usual aseptic manner. The procedure was performed and a clean field. I debrided the wound sharply with a sterile #15 blade and necrotic tissue was excised. Bleeding was minimal and hemostasis was achieved using pressure. The patient tolerated procedure and anesthesia well. The patient was educated regarding the signs and symptoms of infection, such as purulent drainage, edema, cellulitis, and significant pain, and to notify healthcare personnel for any of these things occur. Postprocedure no increased pain. (3) Cellulitis of left foot: (4) Cellulitis of left lower extremity: Admission and Anticipated Discharge Date Admission Date: August 03, 2020 Subjective No acute events overnight. Fevers persist. Lex otherwise feels well. No dyspnea. No pain. Appetite is good. Review of Systems Constitutional: as per Subjective / HPI Patient denies symptoms. Eyes: Patient has one prosthetic eye Ear, Nose, Mouth, Throat: as per Subjective / HPI Respiratory: as per Subjective / HPI Cardiovascular: as per Subjective / HPI Gastrointestinal: as per Subjective / HPI Genitourinary: + as per Subjective / HPI Musculoskeletal: as per Subjective / HPI Integumentary: + non-healing lesions, + skin ulcer, + erythema and + change in skin color Neurologic: as per Subjective / HPI Psychiatric: as per Subjective / HPI Endocrine: as per Subjective / HPI Hematologic / Lymphatic: as per Subjective / HPI Allergy / Immunological: as per Subjective / HPI Physical Exam Constitutional: well developed, well nourished, cooperative, comfortable and + overweight ENMT: external ear and nose normal, oropharynx normal Neck: trachea midline, no thyromegaly Respiratory: normal respiratory effort Cardiovascular: Rate/Rhythm: regular rate and regular rhythm Chest (Breasts): Chest: normal inspection of chest Gastrointestinal (Abdomen): normal bowel sounds, soft, nontender, no hepatosplenomegaly Musculoskeletal: no cyanosis or clubbing, extremities motor strength 5/5 Neurologic: Motor/Sensory: + sensory deficit Psychiatric: Orientation: alert and oriented x 3 Lymphatic: no cervical or axillary lymphadenopathy Results & Data ([facility]) Vital Signs (Past 12 Hours) Vital Signs Temp Pulse Resp BP Pulse Ox 08/07/20 23:45 38.1 C H 101 H 24 97 08/07/20 23:31 38.1 C H 105 H 11 L 138/82 100 08/07/20 23:30 38.1 C H 104 H 19 98 08/07/20 23:15 38.1 C H 105 H 24 95 08/07/20 23:00 38.2 C H 104 H 21 97 (1) Diabetic foot ulcer associated with type 2 diabetes mellitus Diabetic foot ulcer location: toe Laterality: left Non-pressure ulcer stage: unspecified non-pressure ulcer stage Qualified Code(s): E11.621 - Type 2 diabetes mellitus with foot ulcer; L97.529 - Non-pressure chronic ulcer of other part of left foot with unspecified severity
[2020-08-08 06:44] LABS: Albumin Level 1.8 gm/dl (3.4-5.0); BUN Creatinine Ratio 11.1 (10-20); C Reactive Protein 27.1 mg/dl (0-0.29); Calcium 8.9 mg/dl (8.5-10.1); Creatinine Clr Calc Pharmacy 25.9 ml/min; Est GFR (African American) 12.3 ml/min; Est GFR (Non-African American) 10.6 ml/min; Phosphorus 6.4 mg/dl (2.5-4.9); Troponin I 0.041 ng/ml (0-0.045)
[2020-08-08] MEDS: INSULIN GLARGINE SOLOSTAR 100 UNITS/ML 3 ML PEN SC SCH (08:10)
[2020-08-08] MEDS: INSULIN ASPART 100 UNITS/ML 3 ML PEN SC SCH ×4 (08:10→22:29)
[2020-08-08] MEDS: MULTIVITAMIN TAB PO SCH (08:10)
[2020-08-08] MEDS: buPROPion SR 150 MG TABCR PO SCH (08:11)
[2020-08-08] MEDS: COLLAGENASE OINT 30 GM TUBE EXT SCH (08:11)
[2020-08-08] MEDS: carvediloL 12.5 MG TAB PO SCH ×2 (08:11→19:57)
--- NOTE | 2020-08-08 09:17 | Pulmonology Progress Note ---
Date of Service August 08, 2020 Assessment & Plan (1) Pulmonary edema: 40-year-old male with a past medical history of diabetes mellitus, diabetic foot wound with osteomyelitis and CKD stage IV now with hypoxemic respiratory failure which is improving. Hypoxemic respiratory failure: This is likely a combination of obesity hypoventilation syndrome, volume overload (secondary to renal failure and CHF) and a possible component of pneumonitis. CT chest without contrast was obtained yesterday which demonstrated groundglass opacities with subpleural sparing. These opacities may also represent multifocal pneumonia. Continue ceftriaxone and doxycycline. He also has likely osteomyelitis of his left foot which is being treated with ceftriaxone. Continue supplemental oxygen to maintain saturations of 92 to 94%. VQ scan was low probability for pulmonary embolism. Heparin drip discontinued 08/07/2020. Continue subcu heparin for DVT prophylaxis. Abnormal CT chest: Pulmonary renal syndrome remains a possibility, but less likely given the improvement without the use of plasmapheresis or corticosteroids. Autoimmune serologies and ANCA serologies sent. Discussed with nephrology. BJ on CKD stage IV: This appears to have stabilized. Continue diuretic therapy per nephrology. (2) Hypoxia: (3) Acute kidney injury: (4) Abnormal CT scan, chest: Admission and Anticipated Discharge Date Admission Date: August 03, 2020 Subjective Patient seen and examined this morning. He is sitting at the edge of the bed and overall he feels better. He still notices that he has some wheezing in his chest. He denies any chest pain. Fevers are improved. He still feels chilly. Review of Systems Review of Systems: All systems reviewed & are unremarkable except as noted in HPI & below Physical Exam Constitutional: well developed and + obese Eyes: PERRL, conjunctivae normal, anicteric sclerae Respiratory: normal respiratory effort Diminished lung sounds bilaterally. Cardiovascular: RRR, no murmur, no edema Gastrointestinal (Abdomen): normal bowel sounds, soft, nontender, no hepatosp lenomegaly Musculoskeletal: no cyanosis or clubbing, extremities motor strength 5/5 Neurologic: PERRL, EOMI, accommodation nl, no face palsy, no dysarthria Psychiatric: A+Ox3, euthymic affect Results & Data Results & Data ([facility]) Vital Signs (Past 12 Hours) Vital Signs Temp Pulse Resp BP Pulse Ox 08/08/20 07:15 99.1 F 96 H 17 95 08/08/20 07:00 99.3 F 95 H 21 98 08/08/20 06:45 99.3 F 92 H 18 97 08/08/20 06:30 99.3 F 96 H 24 96 08/07/20 23:45 100.6 F H 101 H 24 97 08/07/20 23:31 100.6 F H 105 H 11 L 138/82 100 08/07/20 23:30 100.6 F H 104 H 19 98 08/07/20 23:15 100.6 F H 105 H 24 95 08/07/20 23:00 100.8 F H 104 H 21 97 Vital signs, labs and imaging reviewed PG Care Time/CCT Total # of Minutes Spent Total Time Spent with Patient: Total time spent is greater than 50% in coordination of care (as documented) at patient's floor/unit and/or counseling patient: Coding Level of Care Code 33446 Subseq Hosp Care Lvl 3 Diagnoses Pulmonary edema J81.1 Hypoxia R09.02 Acute kidney injury N17.[address] scan, chest R93.89
--- NOTE | 2020-08-08 09:47 | Nephrology Progress Note ---
Date of Service August 08, 2020 Assessment & Plan (1) Acute kidney injury: Non-oliguric. Bumex gtt stopped. Diuresis continues. Bumex PRN to encourage continued negative fluid balance. Clinical presentation consistent with suspected ATN. Creatinine plateaued past 24 hours. Electrolytes acceptable. No overt uremic symptoms. No emergent indication for dialysis. Renal US will be obtained today. Bumex gtt to continue to encourage negative fluid balance. Monitor metabolic profile twice daily. Document I/O's. Patten remains in. Medications appropriately dosed for kidney dysfunction. Low PO4 diet and monitor hyperphosphatemia. Phoslo QAC. 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 CKD IV A3. Baseline creatinine 2.5- 3.0 mg/dL. Will require close outpatient follow up. (3) Pulmonary edema: Minimize obligatory intake. Bumex gtt titrated to encourage UOP. (4) Hypertension: Continue to hold lisinopril (CARMEN/ARB) in setting of BJ. (5) Sepsis: Podiatry consultation reviewed. Blood 07/04 Group G Beta Strep. Follow up culture NGTD. Zosyn + dapto switched to Doxy and ceftriaxone yesterday. Admission and Anticipated Discharge Date Admission Date: August 03, 2020 Subjective No acute events overnight. Afebrile this AM. Lex reports improvement. He is experiencing some chest congestion. Patten remains in place. Bumex gtt stopped yesterday afternoon. Remains polyuric. Review of Systems Review of Systems: All systems reviewed & are unremarkable except as noted in HPI & below Physical Exam Constitutional: + morbidly obese; no acute distress Eyes: + anicteric sclerae; no corneal abnormality ENMT: Mouth: no oral mucosal abnormality and oral mucous membranes not dry Neck: normal visual inspection, trachea midline and + thick neck Respiratory: normal respiratory effort Auscultation: + diminished lung sounds and + rales Cardiovascular: Rate/Rhythm: + tachycardic Heart Sounds: normal S1 and normal S2 Extremities: + edema Gastrointestinal (Abdomen): Percussion/Palpation: abdomen soft; abdomen nontender Musculoskeletal: Extremities: no cyanosis and no clubbing Skin: normal turgor; no lesions Neurologic: Motor/Sensory: no tremor and no asterixis Psychiatric: Orientation: alert and oriented x 3 Results & Data ([facility]) Vital Signs (Past 12 Hours) Vital Signs Temp Pulse Resp BP Pulse Ox 08/08/20 07:15 37.3 C 96 H 17 95 08/08/20 07:00 37.4 C 95 H 21 98 08/08/20 06:45 37.4 C 92 H 18 97 08/08/20 06:30 37.4 C 96 H 24 96 08/07/20 23:45 38.1 C H 101 H 24 97 08/07/20 23:31 38.1 C H 105 H 11 L 138/82 100 08/07/20 23:30 38.1 C H 104 H 19 98 08/07/20 23:15 38.1 C H 105 H 24 95 08/07/20 23:00 38.2 C H 104 H 21 97 Laboratory Results Laboratory Results - last 24 hr 08/07/20 08/07/20 08/07/20 10:37 12:38 13:00 WBC RBC Hgb Hct MCV MCH MCHC RDW Std Deviation RDW Coeff of Nicky Plt Count MPV ESR APTT 35.9 H PTT Ratio 1.4 Sodium Potassium Chloride Carbon Dioxide Anion Gap BUN Creatinine Est Cr Clr Drug Dosing Est GFR ( Amer) Est GFR (Non-Af Amer) BUN/Creatinine Ratio Glucose POC Glucose 233 H Calcium Phosphorus Troponin I C-Reactive Protein Albumin Procalcitonin Urine Color Yellow Urine Appearance Clear Urine pH 5.5 Ur Specific Barling 1.011 Urine Protein 2+ H Urine Glucose (UA) Negative Urine Ketones Negative Urine Blood 1+ H Urine Nitrite Negative Urine Bilirubin Negative Urine Urobilinogen Negative Ur Leukocyte Esterase Negative Urine WBC (Auto) 1-5 Urine RBC (Auto) 5-10 H U Hyaline Cast (Auto) 1-5 U Epithel Cells (Auto) 5-10 H Urine Bacteria (Auto) Negative Urine Yeast Not Reportable RODGER Screen ANCA SS-A/Ro Antibody SS-B/La Antibody Sm ([place]) Antibody [employer] Antibody Scl-70 Scleroderma Ab Anti-ds DNA (Crithidia) Chromatin Antibody Anti-Centromere Ab Thyroid Antimicrosomal Glomerular Base Memb Ab Anti-Cardiolipin IgG Ab Anti-Cardiolipin IgA Ab Anti-Cardiolipin IgM Ab Complement C3 Complement C4 Adenovirus (PCR) B. pertussis DNA (PCR) B.parapertussis DNA PCR C. pneumoniae DNA (PCR) Coronavirus OC43 (PCR) Coronavirus HKU1 (PCR) Coronavirus 229E (PCR) SARS-CoV-2 (PCR) Coronavirus NL63 (PCR) Human Metapneumovir PCR Influenza Type A (PCR) Influenza Type B (PCR) Urine Legionella Ag M. pneumoniae (PCR) Parainfluenza 1 (PCR) Parainfluenza 2 (PCR) Parainfluenza 3 (PCR) Parainfluenza 4 (PCR) RSV (PCR) Entero/Rhino (PCR) 08/07/20 08/07/20 08/07/20 13:20 16:17 16:40 WBC RBC Hgb Hct MCV MCH MCHC RDW Std Deviation RDW Coeff of Nicky Plt Count MPV ESR APTT PTT Ratio Sodium 129 L Potassium 4.2 Chloride 95 L Carbon Dioxide 24 Anion Gap 10.0 BUN 62 H Creatinine 6.31 H* Est Cr Clr Drug Dosing 24.5 Est GFR ( Amer) 11.7 Est GFR (Non-Af Amer) 10.1 BUN/Creatinine Ratio 9.8 L Glucose 227 H POC Glucose 268 H Calcium 8.8 Phosphorus Troponin I C-Reactive Protein Albumin Procalcitonin Urine Color Urine Appearance Urine pH Ur Specific Barling Urine Protein Urine Glucose (UA) Urine Ketones Urine Blood Urine Nitrite Urine Bilirubin Urine Urobilinogen Ur Leukocyte Esterase Urine WBC (Auto) Urine RBC (Auto) U Hyaline Cast (Auto) U Epithel Cells (Auto) Urine Bacteria (Auto) Urine Yeast RODGER Screen ANCA SS-A/Ro Antibody SS-B/La Antibody Sm ([place]) Antibody [employer] Antibody Scl-70 Scleroderma Ab Anti-ds DNA (Crithidia) Chromatin Antibody Anti-Centromere Ab Thyroid Antimicrosomal Glomerular Base Memb Ab Anti-Cardiolipin IgG Ab Anti-Cardiolipin IgA Ab Anti-Cardiolipin IgM Ab Complement C3 Complement C4 Adenovirus (PCR) Not Detected B. pertussis DNA (PCR) Not Detected B.parapertussis DNA PCR Not Detected C. pneumoniae DNA (PCR) Not Detected Coronavirus OC43 (PCR) Not Detected Coronavirus HKU1 (PCR) Not Detected Coronavirus 229E (PCR) Not Detected SARS-CoV-2 (PCR) Not Detected Coronavirus NL63 (PCR) Not Detected Human Metapneumovir PCR Not Detected Influenza Type A (PCR) Not Detected Influenza Type B (PCR) Not Detected Urine Legionella Ag M. pneumoniae (PCR) Not Detected Parainfluenza 1 (PCR) Not Detected Parainfluenza 2 (PCR) Not Detected Parainfluenza 3 (PCR) Not Detected Parainfluenza 4 (PCR) Not Detected RSV (PCR) Not Detected Entero/Rhino (PCR) Not Detected 08/07/20 08/07/20 08/07/20 16:40 17:30 21:27 WBC RBC Hgb Hct MCV MCH MCHC RDW Std Deviation RDW Coeff of Nicky Plt Count MPV ESR APTT PTT Ratio Sodium Potassium Chloride Carbon Dioxide Anion Gap BUN Creatinine Est Cr Clr Drug Dosing Est GFR ( Amer) Est GFR (Non-Af Amer) BUN/Creatinine Ratio Glucose POC Glucose 175 H Calcium Phosphorus Troponin I C-Reactive Protein Albumin Procalcitonin Urine Color Urine Appearance Urine pH Ur Specific Barling Urine Protein Urine Glucose (UA) Urine Ketones Urine Blood Urine Nitrite Urine Bilirubin Urine Urobilinogen Ur Leukocyte Esterase Urine WBC (Auto) Urine RBC (Auto) U Hyaline Cast (Auto) U Epithel Cells (Auto) Urine Bacteria (Auto) Urine Yeast RODGER Screen Pending ANCA Pending SS-A/Ro Antibody Pending SS-B/La Antibody Pending Sm ([place]) Antibody Pending [employer] Antibody Pending Scl-70 Scleroderma Ab Pending Anti-ds DNA (Crithidia) Pending Chromatin Antibody Pending Anti-Centromere Ab Pending Thyroid Antimicrosomal Pending Glomerular Base Memb Ab Pending Anti-Cardiolipin IgG Ab Pending Anti-Cardiolipin IgA Ab Pending Anti-Cardiolipin IgM Ab Pending Complement C3 Pending Complement C4 Pending Adenovirus (PCR) B. pertussis DNA (PCR) B.parapertussis DNA PCR C. pneumoniae DNA (PCR) Coronavirus OC43 (PCR) Coronavirus HKU1 (PCR) Coronavirus 229E (PCR) SARS-CoV-2 (PCR) Coronavirus NL63 (PCR) Human Metapneumovir PCR Influenza Type A (PCR) Influenza Type B (PCR) Urine Legionella Ag Pending M. pneumoniae (PCR) Parainfluenza 1 (PCR) Parainfluenza 2 (PCR) Parainfluenza 3 (PCR) Parainfluenza 4 (PCR) RSV (PCR) Entero/Rhino (PCR) 08/08/20 08/08/20 08/08/20 05:34 05:34 05:34 WBC RBC Hgb Hct MCV MCH MCHC RDW Std Deviation RDW Coeff of Nicky Plt Count MPV ESR 86 H APTT PTT Ratio Sodium 132 L Potassium 4.0 Chloride 98 Carbon Dioxide 26 Anion Gap 8.0 BUN 67 H Creatinine 6.05 H* Est Cr Clr Drug Dosing 25.9 Est GFR ( Amer) 12.3 Est GFR (Non-Af Amer) 10.6 BUN/Creatinine Ratio 11.1 Glucose 170 H POC Glucose Calcium 8.9 Phosphorus 6.4 H Troponin I 0.041 C-Reactive Protein 27.10 H Albumin 1.8 L Procalcitonin 1.12 H Urine Color Urine Appearance Urine pH Ur Specific Barling Urine Protein Urine Glucose (UA) Urine Ketones Urine Blood Urine Nitrite Urine Bilirubin Urine Urobilinogen Ur Leukocyte Esterase Urine WBC (Auto) Urine RBC (Auto) U Hyaline Cast (Auto) U Epithel Cells (Auto) Urine Bacteria (Auto) Urine Yeast RODGER Screen ANCA SS-A/Ro Antibody SS-B/La Antibody Sm ([place]) Antibody [employer] Antibody Scl-70 Scleroderma Ab Anti-ds DNA (Crithidia) Chromatin Antibody Anti-Centromere Ab Thyroid Antimicrosomal Glomerular Base Memb Ab Anti-Cardiolipin IgG Ab Anti-Cardiolipin IgA Ab Anti-Cardiolipin IgM Ab Complement C3 Complement C4 Adenovirus (PCR) B. pertussis DNA (PCR) B.parapertussis DNA PCR C. pneumoniae DNA (PCR) Coronavirus OC43 (PCR) Coronavirus HKU1 (PCR) Coronavirus 229E (PCR) SARS-CoV-2 (PCR) Coronavirus NL63 (PCR) Human Metapneumovir PCR Influenza Type A (PCR) Influenza Type B (PCR) Urine Legionella Ag M. pneumoniae (PCR) Parainfluenza 1 (PCR) Parainfluenza 2 (PCR) Parainfluenza 3 (PCR) Parainfluenza 4 (PCR) RSV (PCR) Entero/Rhino (PCR) 08/08/20 06 05:34 07:36 WBC 13.53 H RBC 3.35 L Hgb 9.7 L Hct 28.1 L MCV 83.9 MCH 29.0 MCHC 34.5 RDW Std Deviation 42.1 RDW Coeff of Nicky 13.8 Plt Count 242 MPV 11.2 H ESR APTT PTT Ratio Sodium Potassium Chloride Carbon Dioxide Anion Gap BUN Creatinine Est Cr Clr Drug Dosing Est GFR ( Amer) Est GFR (Non-Af Amer) BUN/Creatinine Ratio Glucose POC Glucose 179 H Calcium Phosphorus Troponin I C-Reactive Protein Albumin Procalcitonin Urine Color Urine Appearance Urine pH Ur Specific Barling Urine Protein Urine Glucose (UA) Urine Ketones Urine Blood Urine Nitrite Urine Bilirubin Urine Urobilinogen Ur Leukocyte Esterase Urine WBC (Auto) Urine RBC (Auto) U Hyaline Cast (Auto) U Epithel Cells (Auto) Urine Bacteria (Auto) Urine Yeast RODGER Screen ANCA SS-A/Ro Antibody SS-B/La Antibody Sm ([place]) Antibody [employer] Antibody Scl-70 Scleroderma Ab Anti-ds DNA (Crithidia) Chromatin Antibody Anti-Centromere Ab Thyroid Antimicrosomal Glomerular Base Memb Ab Anti-Cardiolipin IgG Ab Anti-Cardiolipin IgA Ab Anti-Cardiolipin IgM Ab Complement C3 Complement C4 Adenovirus (PCR) B. pertussis DNA (PCR) B.parapertussis DNA PCR C. pneumoniae DNA (PCR) Coronavirus OC43 (PCR) Coronavirus HKU1 (PCR) Coronavirus 229E (PCR) SARS-CoV-2 (PCR) Coronavirus NL63 (PCR) Human Metapneumovir PCR Influenza Type A (PCR) Influenza Type B (PCR) Urine Legionella Ag M. pneumoniae (PCR) Parainfluenza 1 (PCR) Parainfluenza 2 (PCR) Parainfluenza 3 (PCR) Parainfluenza 4 (PCR) RSV (PCR) Entero/Rhino (PCR) PG Care Time/CCT Total # of Minutes Spent Total Time Spent with Patient: Total time spent is greater than 50% in coordination of care (as documented) at patient's floor/unit and/or counseling patient: Coding Level of Care Code 28556 Subseq Hosp Care Lvl 3 Diagnoses Acute kidney injury N17.9 Chronic kidney disease, stage IV (severe) N18.4 Pulmonary edema J81.1 Hypertension I10 Sepsis A41.9 Sepsis acute organ dysfunction status: without acute organ dysfunction Sepsis type: sepsis due to unspecified organism (1) Sepsis Sepsis acute organ dysfunction status: without acute organ dysfunction Sepsis type: sepsis due to unspecified organism Qualified Code(s): A41.9 - Sepsis, unspecified organism
[2020-08-08] MEDS: HEPARIN SOD 5,000 UNIT/0.5 ML VIAL SQ SCH ×2 (10:20→19:57)
[2020-08-08] MEDS: CALCIUM ACETATE 667 MG CAP/TAB PO SCH ×2 (11:57→16:27)
[2020-08-08] MEDS: DOXYCYCLINE HYCLATE 100 MG in DEXTROSE 5% 100 ML IV SCH ×2 (11:57→22:28)
[2020-08-08] MEDS: cefTRIAXone SODIUM 2,000 MG in DEXTROSE 5% 50 ML IV SCH (15:49)
--- NOTE | 2020-08-08 19:48 | Hospitalist Progress Note ---
Date of Service August 08, 2020 Assessment & Plan (1) Pneumonia: CT chest 08/07/20 -- extensive b/l pneumonia and/or edema. on 08/07/20, because of refractory fever, zosyn was stopped, dapto was stopped; changed to rocephin/doxy. fevers largely resolved within 6-8 hours later. Group G strep would be unusual pathogen for the lungs. Atypical process? (legionella urine ag sent; mycoplasma on biofire negative) Noninfectious process (vasculitis?). Tickborne? (anaplasmosis can cause pneumonia) drug fever (from zosyn??). Biofire completely negative including COVID-19. Procal improving today. Sed rate/crp markedly elevated - trend. Numerous labs to r/o vasculitis sent - but suspect they will be negative given rapid resolution of fever overnight with changing of his antibiotics. Appreciate pulmonary input. (2) Bacteremia due to Streptococcus: Bacteremia with severe sepsis. Improving albeit slowly. 2nd group G strep. source - cellulitis of LLE along with infected left foot plantar diabetic ulcer. concern for osteomyelitis of 5th metatarsal head as well. repeat blood cx's 08/04 negative; repeat blood cx's from 08/07 thus far negative. Left tib-fib CT without nec fasc, abscess, gas formation, etc. Echo, although limited, without signs of obvious valvular vegetations. fever - suspected to be NOT from the LLE cellulitis or bacteremia but other etiology - see above in "pneumonia." (3) Diabetic foot ulcer associated with type 2 diabetes mellitus: Left 5th metatarsal head diabetic foot ulcer with cellulitis of the left lower extremity. Blood cultures with group G strep - thus, this is likely pathogen causing the infection in ulcer/LLE. CT of left tib-fib - no signs of deeper infection (nec fasc, abscess, etc). CT of left foot - some concern for osteomyelitis of 5th metatarsal head region. Ultimately MRI will be needed to r/o osteo - can likely obtain this in a couple of days. Continue local wound care. Podiatry consult appreciated. Continue IV antibiotics - rocephin 2gm daily. d/c daptomycin - no evidence of MRSA or enterococcal infection this admission. (4) Cellulitis of left lower extremity: As above improved (5) Acute kidney injury: Baseline Creatinine about 2.5 to 2.8. Now >6, but has peaked and appears to be coming down. Non-oliguric - again copious UOP today without any diuretics. Likely ATN from septicemia/bacteremia, and appears to have entered the diuretic phase of ATN. BMP in am. Cont preston. Nephro consult appreciated. holding off on HD for now since renal recovery may be starting. this is great news. (6) Acute respiratory failure with hypoxia and hypercapnia: 2nd to pulmonary edema and/or pneumonia. See "pneumonia" above. See "BJ" above. IMPROVING. NC O2 prn during the day. BIPAP at HS. (7) Acute pulmonary edema: Improved with bumex infusion. Bumex now stopped. Auto-diuresing. Respiratory status has improved w/ diuresis. BMP am. (8) SVT (supraventricular tachycardia): Prior to transfer to ICU he was having sinus tach interspersed with either atrial tachycardia or even a 2:1 atrial flutter. He had not responded to IV or PO beta blockers. He was placed on cardizem infusion with decent response to this. No atrial rhythms since that time. Cardizem has been d/c for several days. Echo noted. TSH wnl. (9) Severe obstructive sleep apnea: Was scheduled to get sleep study in the near-future as outpatient. Cont HS BIPAP while here if he can tolerate such. (10) Hypomagnesemia: repleted and now normal (11) Chronic kidney disease, stage IV (severe): baseline Cr 2.5 to 2.8. now with BJ/ARF. see above. (12) HTN (hypertension): Continue coreg but BPs rising. Resume amlodipine tomorrow if BPs still high Holding CARMEN due to ARF/BJ. (13) Uncontrolled type 2 diabetes mellitus: Hold semaglutide. a1c >8%. uncontrolled increase lantus to BID dosing novolog remains fairly tight but given his obesity may need further adjustment (14) Mixed hyperlipidemia: hold Lipitor 80 mg daily LFTs remain wnl (15) BPH loc w urin obs/LUTS: resume tamsulosin given high BPs (16) Diabetic nephropathy associated with type 2 diabetes mellitus: baseline CKD stage 4 (17) Elevated troponin: Likely myocardial demand ischemia in setting of bacteremia (18) Morbid obesity with BMI of 45.0-49.9, adult: BMI 47 (19) Multiorgan failure: pulmonary status improved cardiac status stable renal status concerning, but hoping for renal recovery next few days from his ATN ID - improving (20) DM neuropathy, painful: in light of acute renal failure would continue to HOLD the lyrica resume in a few days when Cr is improved (21) DVT prophylaxis: heparin infusion stopped; v/q low prob for PE, and recent LE dopplers neg for DVT transition to SC heparin for DVT proph updated pt's by phone again today care d/w Dr Pereyra Admission and Anticipated Discharge Date Admission Date: August 03, 2020 Subjective tele - no dysrhythmia overnight NSR or sinus tach only patient overall feeling better. fevers/chills resolved. body aches improved. arthralgias improved. appetite improved. minimal cough. dyspnea improved. mild left lower extremity pain only. he is pleased w/ his progress. Review of Systems Constitutional: + fatigue and + weakness; no fever and no chills Respiratory: + cough and + dyspnea on exertion Cardiovascular: + edema; no dyspnea at rest and no orthopnea Gastrointestinal: no abdominal pain, no nausea, no vomiting and no d iarrhea/loose stools Integumentary: + erythema (left distal leg ) Endocrine: hyperglycemia Physical Exam Constitutional: + morbidly obese; no acute distress and no altered mental status does look better today overall ENMT: external ear and nose normal, oropharynx normal Respiratory: no respiratory distress Auscultation: + diminished lung sounds (Bases) and + crackles (bases - minimal ); no wheezes Cardiovascular: Rate/Rhythm: regular rhythm and + tachycardic Heart Sounds: normal S1 and normal S2; no murmur Vessels: posterior tibial pulses present and dorsalis pedis pulses present Extremities: + edema (about 1+ b/l ) Gastrointestinal (Abdomen): normal bowel sounds, soft, nontender, no hepatosplenomegaly Skin: + rash (Stasis dermatitis LLE longoria; cellulitis - LLE - mild, improving) Psychiatric: Orientation: alert and oriented x 3 Results & Data Results & Data ([facility]) Vital Signs (Past 12 Hours) Vital Signs Temp Pulse Resp BP Pulse Ox 08/08/20 17:41 37.1 C 101 H 21 139/88 95 08/08/20 17:00 37.0 C 98 H 18 94 08/08/20 16:41 37.0 C 98 H 19 139/86 93 08/08/20 16:00 37.1 C 94 H 19 81 L 08/08/20 15:45 37.1 C 100 H 22 89 L 08/08/20 15:41 37.1 C 94 H 14 150/85 H 87 L 08/08/20 15:30 37.1 C 90 16 76 L 08/08/20 15:15 37.1 C 98 H 17 94 08/08/20 15:00 37.0 C 100 H 12 92 08/08/20 14:41 37.0 C 97 H 19 165/92 H 93 08/08/20 14:00 36.9 C 96 H 13 90 08/08/20 13:41 36.8 C 94 H 24 147/81 H 92 08/08/20 13:00 36.7 C 91 08/08/20 12:00 36.7 C 93 H 25 H 99 08/08/20 11:41 36.8 C 91 H 11 L 135/86 86 L 08/08/20 11:00 37.1 C 94 H 14 67 L 08/08/20 10:42 37.4 C 91 H 17 93 08/08/20 10:41 37.4 C 91 H 17 129/77 85 L 08/08/20 10:00 37.6 C H 99 H 22 98 08/08/20 09:41 37.8 C H 100 H 17 126/79 100 08/08/20 09:00 37.8 C H 100 H 15 100 08/08/20 08:16 37.5 C 102 H 17 133/91 100 08/08/20 08:00 37.4 C 99 H 18 100 Laboratory Results Laboratory Results - last 24 hr 08/07/20 08/08/20 08/08/20 21:27 05:34 05:34 WBC RBC Hgb Hct MCV MCH MCHC RDW Std Deviation RDW Coeff of Nicky Plt Count MPV ESR 86 H Sodium 132 L Potassium 4.0 Chloride 98 Carbon Dioxide 26 Anion Gap 8.0 BUN 67 H Creatinine 6.05 H* Est Cr Clr Drug Dosing 25.9 Est GFR ( Amer) 12.3 Est GFR (Non-Af Amer) 10.6 BUN/Creatinine Ratio 11.1 Glucose 170 H POC Glucose 175 H Calcium 8.9 Phosphorus 6.4 H Troponin I 0.041 C-Reactive Protein 27.10 H Albumin 1.8 L Procalcitonin 08/08/20 08/08/20 08/08/20 05:34 05:34 07:36 WBC 13.53 H RBC 3.35 L Hgb 9.7 L Hct 28.1 L MCV 83.9 MCH 29.0 MCHC 34.5 RDW Std Deviation 42.1 RDW Coeff of Nicky 13.8 Plt Count 242 MPV 11.2 H ESR Sodium Potassium Chloride Carbon Dioxide Anion Gap BUN Creatinine Est Cr Clr Drug Dosing Est GFR ( Amer) Est GFR (Non-Af Amer) BUN/Creatinine Ratio Glucose POC Glucose 179 H Calcium Phosphorus Troponin I C-Reactive Protein Albumin Procalcitonin 1.12 H 08/08/20 08/08/20 12:02 15:46 WBC RBC Hgb Hct MCV MCH MCHC RDW Std Deviation RDW Coeff of Nicky Plt Count MPV ESR Sodium Potassium Chloride Carbon Dioxide Anion Gap BUN Creatinine Est Cr Clr Drug Dosing Est GFR ( Amer) Est GFR (Non-Af Amer) BUN/Creatinine Ratio Glucose POC Glucose 240 H 193 H Calcium Phosphorus Troponin I C-Reactive Protein Albumin Procalcitonin PG Care Time/CCT Total # of Minutes Spent Total Time Spent with Patient: Total time spent is greater than 50% in c oordination of care (as documented) at patient's floor/unit and/or counseling patient: Coding Level of Care Code 92890 Subseq Hosp Care Lvl 3 Diagnoses Pneumonia J18.9 Bacteremia due to Streptococcus R78.81; B95.5 Diabetic foot ulcer associated with type 2 diabetes mellitus E11.621; L97.529 Diabetic foot ulcer location: toe Laterality: left Non-pressure ulcer stage: unspecified non-pressure ulcer stage Cellulitis of left lower extremity L03.116 Acute kidney injury N17.9 Acute respiratory failure with hypoxia and hypercapnia J96.01; J96.02 Acute pulmonary edema J81.0 SVT (supraventricular tachycardia) I47.1 Severe obstructive sleep apnea G47.33 Hypomagnesemia E83.42 Chronic kidney disease, stage IV (severe) N18.4 HTN (hypertension) I10 Hypertension type: essential hypertension Uncontrolled type 2 diabetes mellitus E11.65 Glycemic state: with hyperglycemia Mixed hyperlipidemia E78.2 BPH loc w urin obs/LUTS N40.1 Diabetic nephropathy associated with type 2 diabetes mellitus E11.21 Elevated troponin R77.8 Morbid obesity with BMI of 45.0-49.9, adult E66.01; Z68.42 Multiorgan failure DM neuropathy, painful E11.40 DVT prophylaxis Z29.9 (1) Diabetic foot ulcer associated with type 2 diabetes mellitus Diabetic foot ulcer location: toe Laterality: left Non-pressure ulcer stage: unspecified non-pressure ulcer stage Qualified Code(s): E11.621 - Type 2 diabetes mellitus with foot ulcer; L97.529 - Non-pressure chronic ulcer of other part of left foot with unspecified severity (2) Uncontrolled type 2 diabetes mellitus Glycemic state: with hyperglycemia Qualified Code(s): E11.65 - Type 2 diabetes mellitus with hyperglycemia (3) HTN (hypertension) Hypertension type: essential hypertension Qualified Code(s): I10 - Essential (primary) hypertension
[2020-08-08] MEDS ORDERED: INSULIN GLARGINE SOLOSTAR 100 UNITS/ML 3 ML PEN SC SCH (21:00)
[2020-08-08] MEDS: TAMSULOSIN HCL 0.4 MG CAP PO SCH (22:33)
[2020-08-09] MEDS: HYDROmorphone INJ 0.5 MG/0.5 ML SYR IV PRN (02:37)
[2020-08-09 06:12] LABS: Basophils # (auto) 0.07 K/uL (0-0.2); Basophils % (auto) 0.5 %; Eosinophils # (auto) 0.14 K/uL (0-0.5); Eosinophils % (auto) 1.1 %; Hematocrit (blood only) 29.4 % (42-52); Hemoglobin 9.8 g/dL (14.0-18.0); Immature Granulocytes # (auto) 0.41 K/uL (0.00-0.02); Immature Granulocytes % (auto) 3.1 %; Lymphocytes # (auto) 2.66 K/uL (1.2-3.4); Lymphocytes % (auto) 20.3 %; Mean Corpuscular Hgb Conc 33.3 g/dL (32-36); Mean Platelet Volume 11.3 fL (7.4-10.4); Monocytes # (auto) 0.92 K/uL (0.11-0.59); Neutrophils # (auto) 8.89 K/uL (1.4-6.5); Platelet Count 330 K/uL (130-400); RDW Coefficient of Variation 13.8 % (11.5-14.5); RDW Standard Deviation 41.9 fL (36.4-46.3); White Blood Count 13.09 K/uL (4.8-10.8)
[2020-08-09 06:57] LABS: BUN Creatinine Ratio 15.5 (10-20); C Reactive Protein 18.4 mg/dl (0-0.29); Calcium 9.1 mg/dl (8.5-10.1); Creatinine Clr Calc Pharmacy 28.5 ml/min; Est GFR (African American) 14.5 ml/min; Est GFR (Non-African American) 12.5 ml/min
[2020-08-09] MEDS: carvediloL 12.5 MG TAB PO SCH ×2 (08:30→20:35)
[2020-08-09] MEDS: buPROPion SR 150 MG TABCR PO SCH (08:30)
[2020-08-09] MEDS: HEPARIN SOD 5,000 UNIT/0.5 ML VIAL SQ SCH ×2 (08:30→20:35)
[2020-08-09] MEDS: COLLAGENASE OINT 30 GM TUBE EXT SCH (08:31)
[2020-08-09] MEDS: CALCIUM ACETATE 667 MG CAP/TAB PO SCH ×3 (08:31→17:14)
[2020-08-09] MEDS: MULTIVITAMIN TAB PO SCH (08:31)
[2020-08-09] MEDS: INSULIN ASPART 100 UNITS/ML 3 ML PEN SC SCH ×4 (08:33→20:34)
[2020-08-09] MEDS ORDERED: INSULIN GLARGINE SOLOSTAR 100 UNITS/ML 3 ML PEN SC SCH (09:00)
[2020-08-09] MEDS: amLODIPine BESYLATE 5 MG TAB PO SCH (09:28)
--- NOTE | 2020-08-09 09:35 | Nephrology Progress Note ---
Date of Service August 09, 2020 Assessment & Plan (1) Acute kidney injury: Remains polyuric. Continue to permit negative fluid balance. Clinical presentation consistent with suspected ATN. Evidence of early stages of recovery at this time. Electrolytes acceptable. No overt uremic symptoms. No emergent indication for dialysis. Renal US negative for obstruction. Document I/O's. Patten may be removed per nursing protocol. Medications appropriately dosed for kidney dysfunction. Low PO4 diet and monitor hyperphosphatemia. Phoslo QAC. 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 CKD IV A3. Baseline creatinine 2.5- 3.0 mg/dL. Will require close outpatient follow up. (3) Pulmonary edema: Improving. Autodiuresis. (4) Hypertension: Continue to hold lisinopril (CARMEN/ARB) in setting of BJ. Norvasc added this AM. (5) Sepsis: Clinically improving. Antibiotic therapy appropriately dosed for kidney dysfunction. Admission and Anticipated Discharge Date Admission Date: August 03, 2020 Subjective No acute events overnight. No complaints this AM. Norvasc added for hypertension. Remains polyuric. Breathing comfortably. No fevers or chills. Review of Systems Review of Systems: All systems reviewed & are unremarkable except as noted in HPI & below Physical Exam Constitutional: + morbidly obese; no acute distress Eyes: + anicteric sclerae; no corneal abnormality ENMT: Mouth: no oral mucosal abnormality and oral mucous membranes not dry Neck: normal visual inspection, trachea midline and + thick neck Respiratory: normal respiratory effort Auscultation: + diminished lung sounds and + rales Cardiovascular: Rate/Rhythm: + tachycardic Heart Sounds: normal S1 and normal S2 Extremities: + edema Gastrointestinal (Abdomen): Percussion/Palpation: abdomen soft; abdomen nontender Musculoskeletal: Extremities: no cyanosis and no clubbing Skin: normal turgor; no lesions Neurologic: Motor/Sensory: no tremor and no asterixis Psychiatric: Orientation: alert and oriented x 3 Results & Data ([facility]) Vital Signs (Past 12 Hours) Vital Signs Temp Pulse Resp BP Pulse Ox 08/09/20 08:13 36.5 C 101 H 18 173/99 H 97 08/09/20 03:43 36.8 C 103 H 15 170/100 H 92 08/08/20 22:44 36.8 C 100 H 14 156/80 H 95 Laboratory Results Laboratory Results - last 24 hr 08/08/20 08/08/20 08/08/20 12:02 15:46 20:38 WBC RBC Hgb Hct MCV MCH MCHC RDW Std Deviation RDW Coeff of Nicky Plt Count MPV Immature Gran % (Auto) Neut % (Auto) Lymph % (Auto) [place] % (Auto) Eos % (Auto) Baso % (Auto) Neut # (Auto) Lymph # (Auto) [place] # (Auto) Eos # (Auto) Baso # (Auto) Immature Gran # (Auto) Sodium Potassium Chloride Carbon Dioxide Anion Gap BUN Creatinine Est Cr Clr Drug Dosing Est GFR ( Amer) Est GFR (Non-Af Amer) BUN/Creatinine Ratio Glucose POC Glucose 240 H 193 H 248 H Calcium C-Reactive Protein 08/09/20 08/09/20 08/09/20 05:41 05:41 07:26 WBC 13.09 H RBC 3.50 L Hgb 9.8 L Hct 29.4 L MCV 84.0 MCH 28.0 MCHC 33.3 RDW Std Deviation 41.9 RDW Coeff of Nicky 13.8 Plt Count 330 MPV 11.3 H Immature Gran % (Auto) 3.1 Neut % (Auto) 68.0 Lymph % (Auto) 20.3 [place] % (Auto) 7.0 Eos % (Auto) 1.1 Baso % (Auto) 0.5 Neut # (Auto) 8.89 H Lymph # (Auto) 2.66 [place] # (Auto) 0.92 H Eos # (Auto) 0.14 Baso # (Auto) 0.07 Immature Gran # (Auto) 0.41 H Sodium 133 L Potassium 4.0 Chloride 99 Carbon Dioxide 24 Anion Gap 10.0 BUN 82 H Creatinine 5.30 H* D Est Cr Clr Drug Dosing 28.5 Est GFR ( Amer) 14.5 Est GFR (Non-Af Amer) 12.5 BUN/Creatinine Ratio 15.5 Glucose 226 H POC Glucose 243 H Calcium 9.1 C-Reactive Protein 18.40 H PG Care Time/CCT Total # of Minutes Spent Total Time Spent with Patient: Total time spent is greater than 50% in coordin ation of care (as documented) at patient's floor/unit and/or counseling patient: Coding Level of Care Code 46501 Subseq Hosp Care Lvl 3 Diagnoses Acute kidney injury N17.9 Chronic kidney disease, stage IV (severe) N18.4 Pulmonary edema J81.1 Hypertension I10 Sepsis A41.9 Sepsis acute organ dysfunction status: without acute organ dysfunction Sepsis type: sepsis due to unspecified organism (1) Sepsis Sepsis acute organ dysfunction status: without acute organ dysfunction Sepsis type: sepsis due to unspecified organism Qualified Code(s): A41.9 - Sepsis, unspecified organism
[2020-08-09] MEDS: DOXYCYCLINE HYCLATE 100 MG in DEXTROSE 5% 100 ML IV SCH (12:14)
--- NOTE | 2020-08-09 12:25 | Hospitalist Progress Note ---
Date of Service August 09, 2020 Assessment & Plan (1) Pneumonia: CT chest 08/07/20 -- extensive b/l pneumonia and/or edema. on 08/07/20, because of refractory fever, zosyn was stopped, dapto was stopped; changed to rocephin/doxy. fevers largely resolved within 6-8 hours after the above changes. Group G strep would be unusual pathogen for the lungs. Atypical process? (legionella urine ag sent and still pending; mycoplasma on biofire negative) Noninfectious process (vasculitis?). Tickborne? (anaplasmosis can cause pneumonia) drug fever (from zosyn??). Biofire completely negative including COVID-19. Numerous labs to r/o vasculitis sent - but suspect they will be negative given rapid resolution of fever after changing his antibiotics. will repeat his cxr in am - if it has largely cleared then likely all of pulmonary findings were pulmonary edema rather than infectious. Appreciate pulmonary input. (2) Fever: following clinical improvement for his group G strep bacteremia the patient then developed a persistent, refractory fever for 2-3 days straight. antipyretics did not break the fever. CT chest was done due to this fever - ?pneumonia vs pulm edema. repeat blood cx's taken - they have remained negative. biofire with COVID - all negative. zosyn was d/c - and within 8 hours his fevers broke. given no new infectious etiology found - did he have drug fever from zosyn?? no fever now in over 24 hours. monitor. (3) Bacteremia due to Streptococcus: Bacteremia with severe sepsis. Improving. 2nd group G strep. source - cellulitis of LLE along with infected left foot plantar diabetic ulcer. concern for osteomyelitis of 5th metatarsal head as well. MRI L foot pending. repeat blood cx's 08/04 negative; repeat blood cx's from 08/07 thus far negative. Left tib-fib CT without nec fasc, abscess, gas formation, etc. Echo, although limited, without signs of obvious valvular vegetations. fever - suspected to be NOT from the LLE cellulitis or bacteremia but other etiology - see above in "pneumonia." (4) Diabetic foot ulcer associated with type 2 diabetes mellitus: Left 5th metatarsal head diabetic foot ulcer with cellulitis of the left lower extremity. Blood cultures with group G strep - thus, this is likely pathogen causing the infection in ulcer/LLE. CT of left tib-fib - no signs of deeper infection (nec fasc, abscess, etc). CT of left foot - some concern for osteomyelitis of 5th metatarsal head region. MRI of left foot ordered today. Continue local wound care. Podiatry consult appreciated. Continue IV antibiotics - rocephin 2gm daily. d/c daptomycin - no evidence of MRSA or enterococcal infection this admission and no h/o such from prior cultures from Dr Puri. (5) Cellulitis of left lower extremity: As above improved (6) Acute kidney injury: Baseline Creatinine about 2.5 to 2.8. 6.3 at the peak now 5.3 today and making adequate urine without assistance of diuretics Likely ATN from septicemia/bacteremia, and appears to have entered the diuretic phase of ATN. BMP in am. remove preston. Nephro consult appreciated. holding off on HD for now since renal recovery continues. (7) Acute respiratory failure with hypoxia and hypercapnia: 2nd to pulmonary edema and/or pneumonia. See "pneumonia" above. See "BJ" above. IMPROVING/resolving. off O2 during my visit today. NC O2 prn during the day BIPAP at HS. (8) Acute pulmonary edema: Improved with bumex infusion. Bumex now stopped. Auto-diuresing. Respiratory status has improved w/ diuresis. off o2. BMP am. (9) SVT (supraventricular tachycardia): Prior to transfer to ICU he was having sinus tach interspersed with either atrial tachycardia or even a 2:1 atrial flutter. He had not responded to IV or PO beta blockers. He was placed on cardizem infusion with decent response to this. No atrial rhythms since that time. Cardizem has been d/c for several days. Echo noted. TSH wnl. remains on coreg 12.5mg BID. (10) Severe obstructive sleep apnea: Was scheduled to get sleep study in the near-future as outpatient. Cont HS BIPAP while here if he can tolerate such. (11) Hypomagnesemia: repleted and now normal (12) Chronic kidney disease, stage IV (severe): baseline Cr 2.5 to 2.8. now with BJ/ARF. see above. (13) HTN (hypertension): Continue coreg Resume amlodipine today Holding CARMEN due to ARF/BJ. (14) Uncontrolled type 2 diabetes mellitus: Hold semaglutide. a1c >8%. uncontrolled increase lantus to 45 units BID tighten his novolog correction/carb coverage today (15) Mixed hyperlipidemia: hold Lipitor LFTs remain wnl (16) BPH loc w urin obs/LUTS: resumed tamsulosin preston out (17) Diabetic nephropathy associated with type 2 diabetes mellitus: baseline CKD stage 4 (18) Elevated troponin: Likely myocardial demand ischemia in setting of bacteremia (19) Morbid obesity with BMI of 45.0-49.9, adult: BMI 45 (20) Multiorgan failure: pulmonary status improved cardiac status stable renal status recovering ID - improving and fevers resolved (21) DM neuropathy, painful: in light of acute renal failure would continue to HOLD the lyrica resume in a few days when Cr is closer to baseline (22) Pain of left midfoot: gout? this would be a classic location for such, especially in the midst of his serious illness check uric acid in am unfortunately he is poor candidate for NSAIDs due to BJ could consider lowdose prednisone for a few days if needed in meantime - norco 7.5's q4h prn pain (23) DVT prophylaxis: SC heparin updated pt's by phone again today PT, ABBY orozco Admission and Anticipated Discharge Date Admission Date: August 03, 2020 Subjective tele overnight - NSR, some sinus tach, no atrial dysrhythmia he feels much better during the visit he was lying flat WITHOUT orthopnea minimal cough no fevers no chills no myalgias he does become dyspneic and hypoxic with walking in room preston removed; voiding ok overnight he developed left mid-foot pain hurts to walk on it Review of Systems Constitutional: + fatigue; no anorexia Respiratory: no hemoptysis and no wheezing Cardiovascular: + dyspnea on exertion and + edema; no chest pain and no orthopnea Gastrointestinal: no abdominal pain, no nausea and no vomiting Genitourinary: no dysuria Musculoskeletal: as per Subjective / HPI and + joint pain Physical Exam Constitutional: + morbidly obese; no acute distress and no altered mental status best he has looked all week ENMT: external ear and nose normal, oropharynx normal Respiratory: no respiratory distress Auscultation: + diminished lung sounds (Bases) and + crackles (bases - minimal ); no wheezes Cardiovascular: Rate/Rhythm: regular rate and regular rhythm Heart Sounds: normal S1 and normal S2; no murmur Vessels: posterior tibial pulses present and dorsalis pedis pulses present Extremities: + edema (about 1+ b/l ) Gastrointestinal (Abdomen): normal bowel sounds, soft, nontender, no hepatosplenomegaly Musculoskeletal: Ankle: no joint line tenderness (ankle) left foot - no podagra; mid-foot - mild warmth, tender to touch Skin: + rash (Stasis dermatitis LLE longoria; cellulitis - LLE - mild, improving) Psychiatric: Orientation: alert and oriented x 3 Results & Data Results & [facility] ([facility]) Vital Signs (Past 12 Hours) Vital Signs Temp Pulse Pulse Resp BP Pulse Ox 08/09/20 11:43 36.7 C 102 H 20 138/87 93 08/09/20 08:13 36.5 C 101 H 18 173/99 H 97 08/09/20 08:00 98 H 08/09/20 03:43 36.8 C 103 H 15 170/100 H 92 Laboratory Results Laboratory Results - last 24 hr 08/07/20 08/08/20 08/08/20 17:30 15:46 20:38 WBC RBC Hgb Hct MCV MCH MCHC RDW Std Deviation RDW Coeff of Nicky Plt Count MPV Immature Gran % (Auto) Neut % (Auto) Lymph % (Auto) [place] % (Auto) Eos % (Auto) Baso % (Auto) Neut # (Auto) Lymph # (Auto) [place] # (Auto) Eos # (Auto) Baso # (Auto) Immature Gran # (Auto) Sodium Potassium Chloride Carbon Dioxide Anion Gap BUN Creatinine Est Cr Clr Drug Dosing Est GFR ( Amer) Est GFR (Non-Af Amer) BUN/Creatinine Ratio Glucose POC Glucose 193 H 248 H Calcium C-Reactive Protein Urine Legionella Ag SEE NOTE 08/09/20 08/09/20 08/09/20 05:41 05:41 07:26 WBC 13.09 H RBC 3.50 L Hgb 9.8 L Hct 29.4 L MCV 84.0 MCH 28.0 MCHC 33.3 RDW Std Deviation 41.9 RDW Coeff of Nicky 13.8 Plt Count 330 MPV 11.3 H Immature Gran % (Auto) 3.1 Neut % (Auto) 68.0 Lymph % (Auto) 20.3 [place] % (Auto) 7.0 Eos % (Auto) 1.1 Baso % (Auto) 0.5 Neut # (Auto) 8.89 H Lymph # (Auto) 2.66 [place] # (Auto) 0.92 H Eos # (Auto) 0.14 Baso # (Auto) 0.07 Immature Gran # (Auto) 0.41 H Sodium 133 L Potassium 4.0 Chloride 99 Carbon Dioxide 24 Anion Gap 10.0 BUN 82 H Creatinine 5.30 H* D Est Cr Clr Drug Dosing 28.5 Est GFR ( Amer) 14.5 Est GFR (Non-Af Amer) 12.5 BUN/Creatinine Ratio 15.5 Glucose 226 H POC Glucose 243 H Calcium 9.1 C-Reactive Protein 18.40 H Urine Legionella Ag 08/09/20 11:36 WBC RBC Hgb Hct MCV MCH MCHC RDW Std Deviation RDW Coeff of Nicky Plt Count MPV Immature Gran % (Auto) Neut % (Auto) Lymph % (Auto) [place] % (Auto) Eos % (Auto) Baso % (Auto) Neut # (Auto) Lymph # (Auto) [place] # (Auto) Eos # (Auto) Baso # (Auto) Immature Gran # (Auto) Sodium Potassium Chloride Carbon Dioxide Anion Gap BUN Creatinine Est Cr Clr Drug Dosing Est GFR ( Amer) Est GFR (Non-Af Amer) BUN/Creatinine Ratio Glucose POC Glucose 257 H Calcium C-Reactive Protein Urine Legionella Ag PG Care Time/CCT Total # of Minutes Spent Total Time Spent with Patient: Total time spent is greater than 50% in coordination of care (as documented) at patient's floor/unit and/or counseling patient: Coding Level of Care Code 10884 Subseq Hosp Care Lvl 3 Diagnoses Pneumonia J18.9 Fever R50.9 Bacteremia due to Streptococcus R78.81; B95.5 Diabetic foot ulcer associated with type 2 diabetes mellitus E11.621; L97.529 Diabetic foot ulcer location: toe Laterality: left Non-pressure ulcer stage: unspecified non-pressure ulcer stage Cellulitis of left lower extremity L03.116 Acute kidney injury N17.9 Acute respiratory failure with hypoxia and hypercapnia J96.01; J96.02 Acute pulmonary edema J81.0 SVT (supraventricular tachycardia) I47.1 Severe obstructive sleep apnea G47.33 Hypomagnesemia E83.42 Chronic kidney disease, stage IV (severe) N18.4 HTN (hypertension) I10 Hypertension type: essential hypertension Uncontrolled type 2 diabetes mellitus E11.65 Glycemic state: with hyperglycemia Mixed hyperlipidemia E78.2 BPH loc w urin obs/LUTS N40.1 Diabetic nephropathy associated with type 2 diabetes mellitus E11.21 Elevated troponin R77.8 Morbid obesity with BMI of 45.0-49.9, adult E66.01; Z68.42 Multiorgan failure DM neuropathy, painful E11.40 Pain of left midfoot M79.672 DVT prophylaxis Z29.9 (1) Diabetic foot ulcer associated with type 2 diabetes mellitus Diabetic foot ulcer location: toe Laterality: left Non-pressure ulcer stage: unspecified non-pressure ulcer stage Qualified Code(s): E11.621 - Type 2 diabetes mellitus with foot ulcer; L97.529 - Non-pressure chronic ulcer of other part of left foot with unspecified severity (2) Uncontrolled type 2 diabetes mellitus Glycemic state: with hyperglycemia Qualified Code(s): E11.65 - Type 2 diabetes mellitus with hyperglycemia (3) HTN (hypertension) Hypertension type: essential hypertension Qualified Code(s): I10 - Essential (primary) hypertension
[2020-08-09] MEDS: HYDROCODONE/ACETAMINOPHEN 7.5/325MG TAB PO PRN (13:29)
[2020-08-09] MEDS: cefTRIAXone SODIUM 2,000 MG in DEXTROSE 5% 50 ML IV SCH (16:46)
[2020-08-09] MEDS: INSULIN GLARGINE SOLOSTAR 100 UNITS/ML 3 ML PEN SC SCH (20:33)
[2020-08-09] MEDS: TAMSULOSIN HCL 0.4 MG CAP PO SCH (20:35)
--- NOTE | 2020-08-09 21:40 | Orthopedic Progress Note ---
Date of Service August 09, 2020 Assessment & Plan (1) Diabetic foot ulcer with osteomyelitis: Patient has chronic osteomyelitis right foot treated successfully with 8 week IV abx. Third and Fourth interspace wounds still present. Patient has a history of Left foot diabetic ulcers that have opened and healed in past. These wounds have never probed to bone. There are no clinical signs of OM to fifth metatarsal. Left foot ulcer dressing changed today. Excellent signs of healing. Will continue with Santyl daily dressing. Dressing changed at today's visit. Thank you for allowing me to participate in the care of this Patient. (2) Cellulitis of left foot: Cellulitis of left lower extremity appears to be resolving. Present on Admission?: Yes (3) Cellulitis of left lower extremity: Admission and Anticipated Discharge Date Admission Date: August 03, 2020 Subjective Patient is resting comfortably at bedside. He has no complaints. Review of Systems Constitutional: as per Subjective / HPI Patient denies symptoms. Eyes: Patient has one prosthetic eye Ear, Nose, Mouth, Throat: as per Subjective / HPI Respiratory: as per Subjective / HPI Cardiovascular: as per Subjective / HPI Gastrointestinal: as per Subjective / HPI Genitourinary: + as per Subjective / HPI Musculoskeletal: as per Subjective / HPI Integumentary: + non-healing lesions, + skin ulcer, + erythema and + change in skin color Neurologic: as per Subjective / HPI Psychiatric: as per Subjective / HPI Endocrine: as per Subjective / HPI Hematologic / Lymphatic: as per Subjective / HPI Allergy / Immunological: as per Subjective / HPI Physical Exam Constitutional: well developed, well nourished, cooperative, comfortable and + overweight ENMT: external ear and nose normal, oropharynx normal Neck: trachea midline, no thyromegaly Respiratory: normal respiratory effort Cardiovascular: Rate/Rhythm: regular rate and regular rhythm Chest (Breasts): Chest: normal inspection of chest Gastrointestinal (Abdomen): normal bowel sounds, soft, nontender, no hepatosplenomegaly Musculoskeletal: no cyanosis or clubbing, extremities motor strength 5/5 Neurologic: Motor/Sensory: + sensory deficit Psychiatric: Orientation: alert and oriented x 3 Lymphatic: no cervical or axillary lymphadenopathy Results & Data ([facility]) Vital Signs (Past 12 Hours) Vital Signs Temp Pulse Pulse Resp BP Pulse Ox Pulse Ox 08/09/20 20:13 36.7 C 107 H 20 157/90 H 93 08/09/20 16:00 99 H 08/09/20 15:51 36.5 C 100 H 20 158/88 H 93 08/09/20 13:19 90 08/09/20 11:43 36.7 C 102 H 20 138/87 93 Pulse Ox 08/09/20 20:13 08/09/20 16:00 08/09/20 15:51 08/09/20 13:19 93 08/09/20 11:43
[2020-08-10] MEDS: HYDROCODONE/ACETAMINOPHEN 7.5/325MG TAB PO PRN (01:29)
[2020-08-10] MEDS: INSULIN ASPART 100 UNITS/ML 3 ML PEN SC SCH ×4 (08:07→19:57)
[2020-08-10 08:09] LABS: BUN Creatinine Ratio 15.7 (10-20); Creatinine Clr Calc Pharmacy 33.1 ml/min; Est GFR (African American) 17.6 ml/min; Est GFR (Non-African American) 15.2 ml/min; Potassium 3.9 mmol/L (3.5-5.1); Uric Acid 11.3 mg/dl (2.6-7.2)
[2020-08-10] MEDS: CALCIUM ACETATE 667 MG CAP/TAB PO SCH ×3 (08:46→16:44)
[2020-08-10] MEDS: amLODIPine BESYLATE 5 MG TAB PO SCH (08:47)
[2020-08-10] MEDS: buPROPion SR 150 MG TABCR PO SCH (08:47)
--- NOTE | 2020-08-10 08:47 | XRay Report ---
XR chest 2V PA/lateral CLINICAL HISTORY: b/l pneumonia vs pulm edema COMPARISON STUDY: Chest radiograph August 05, 2020. Chest CT August 07, 2020. FINDINGS: Lung volumes are normal. There is no pneumothorax or pleural effusion. Cardiac mediastinal silhouette is stable. Bilateral airspace opacities have significantly improved. IMPRESSION: Significant interval improvement in bilateral airspace opacities. ACT 112: Negative or not required by law. Electronically signed by: Aroldo Nichole M.D. 08/10/2020 8:46 AM
[2020-08-10] MEDS: carvediloL 25 MG TAB PO SCH ×2 (08:49→19:48)
[2020-08-10] MEDS: DOXYCYCLINE HYCLATE 100 MG CAP PO SCH ×2 (08:50→19:48)
[2020-08-10] MEDS: COLLAGENASE OINT 30 GM TUBE EXT SCH ×2 (08:50→10:07)
[2020-08-10] MEDS: HEPARIN SOD 5,000 UNIT/0.5 ML VIAL SQ SCH ×2 (08:51→19:43)
[2020-08-10] MEDS: MULTIVITAMIN TAB PO SCH (08:51)
[2020-08-10] MEDS: INSULIN GLARGINE SOLOSTAR 100 UNITS/ML 3 ML PEN SC SCH ×2 (08:52→19:49)
--- NOTE | 2020-08-10 08:59 | Magnetic Resonance Report ---
MRI OF THE LEFT FOOT WITHOUT CONTRAST CLINICAL HISTORY: Left 5th metatarsal head ulcer; assess for osteomyelitis COMPARISON STUDY: CT of the left foot August 04, 2020. Left foot radiographs August 03, 2020. TECHNIQUE: Utilizing a 1.5 Lyubov magnet and dedicated coil, multiplanar, multi echo imaging of the le ft forefoot was performed without intravenous contrast. FINDINGS: Note is made of a wound along the plantar lateral aspect of the left fifth metatarsal head. There is mild T2 signal within the adjacent soft tissues suggestive of cellulitis. No fluid collecti on is identified on this unenhanced exam to suggest an abscess. There is slight marrow edema within t he ventral aspect of the left fifth metatarsal head. T1 signal is preserved. There is no MR evidence for osteomyelitis within the left forefoot. Tarsometatarsal joints are intact. Dorsal subcutaneous ed madelin is present. No suspicious osseous lesions are present. No erosions are identified. No masses iden tified on this unenhanced exam. IMPRESSION: 1. Wound along the plantar lateral aspect of the left fifth metatarsal head. Mild associated cellulit is with no abscess. 2. Minimal edema within the plantar aspect of the left fifth metatarsal head with preserved T1 signal . No MR evidence for osteomyelitis. ACT 112: Negative or not required by law. Electronically signed by: Aroldo Nichole M.D. 08/10/2020 8:58 AM
--- NOTE | 2020-08-10 12:36 | Nephrology Progress Note ---
Date of Service August 10, 2020 Assessment & Plan (1) Acute kidney injury: Clinical presentation consistent with suspected ATN. Now in recovery phase. Electrolytes acceptable. No role for hemodialysis. Continue to document I/O's and monitor metabolic profile daily. Medications appropriately dosed for kidney dysfunction. Low PO4 diet and monitor hyperphosphatemia. Phoslo [facility]. Nephrology will monitor peripherally as inpatient at this time. Please call with questions or concerns. 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 CKD IV A3. Baseline creatinine 2.5- 3.0 mg/dL. Will require close outpatient follow up. I would suggest follow up with Dr. Fonseca within 1-2 weeks of hospital discharge. (3) Pulmonary edema: Improving. Autodiuresis. Additional diuretic therapy deferred at this time but reasonable to restart as needed to continue to encourage slightly negative fluid balance. (4) Hypertension: Continue to hold lisinopril (CARMEN/ARB) in setting of BJ -- at least until creatinine improves to baseline. Good response to Norvasc added yesterday. (5) Sepsis: Clinically improving. Antibiotic therapy appropriately dosed for kidney dysfunction. Admission and Anticipated Discharge Date Admission Date: August 03, 2020 Subjective No acute events overnight. No fevers or chills. Denies pain. Dyspnea improving. Remains weak and fatigues quickly with exertion. Voiding without difficulty post Patten removal. Review of Systems Review of Systems: All systems reviewed & are unremarkable except as noted in HPI & below Physical Exam Constitutional: + morbidly obese; no acute distress Eyes: + anicteric sclerae; no corneal abnormality ENMT: Mouth: no oral mucosal abnormality and oral mucous membranes not dry Neck: normal visual inspection, trachea midline and + thick neck Respiratory: normal respiratory effort Auscultation: + diminished lung sounds and + rales Cardiovascular: Rate/Rhythm: + tachycardic Heart Sounds: normal S1 and normal S2 Extremities: + edema Gastrointestinal (Abdomen): Percussion/Palpation: abdomen soft; abdomen nontender Musculoskeletal: Extremities: no cyanosis and no clubbing Skin: normal turgor; no lesions Neurologic: Motor/Sensory: no tremor and no asterixis Psychiatric: Orientation: alert and oriented x 3 Results & Data ([facility]) Vital Signs (Past 12 Hours) Vital Signs Temp Pulse Resp BP Pulse Ox 08/10/20 11:11 36.9 C 100 H 18 147/82 H 95 08/10/20 07:55 37.0 C 103 H 19 146/81 H 95 08/10/20 04:37 36.6 C 98 H 22 165/76 H 92 Laboratory Results Laboratory Results - last 24 hr 08/09/20 08/09/20 08/10/20 16:22 20:28 06:45 Sodium 136 Potassium 3.9 Chloride 103 Carbon Dioxide 22 Anion Gap 11.0 BUN 71 H Creatinine 4.50 H D Est Cr Clr Drug Dosing 33.1 Est GFR ( Amer) 17.6 Est GFR (Non-Af Amer) 15.2 BUN/Creatinine Ratio 15.7 Glucose 192 H POC Glucose 254 H 224 H Uric Acid 11.3 H Calcium 9.0 08/10/20 08/10/20 07:35 11:10 Sodium Potassium Chloride Carbon Dioxide Anion Gap BUN Creatinine Est Cr Clr Drug Dosing Est GFR ( Amer) Est GFR (Non-Af Amer) BUN/Creatinine Ratio Glucose POC Glucose 176 H 194 H Uric Acid Calcium PG Care Time/CCT Total # of Minutes Spent Total Time Spent with Patient: Total time spent is greater than 50% in coordination of care (as documented) at patient's floor/unit and/or counseling patient: Coding Level of Care Code 28267 Subseq Hosp Care Lvl 3 Diagnoses Acute kidney injury N17.9 Chronic kidney disease, stage IV (severe) N18.4 Pulmonary edema J81.1 Hypertension I10 Sepsis A41.9 Sepsis acute organ dysfunction status: without acute organ dysfunction Sepsis type: sepsis due to unspecified organism (1) Sepsis Sepsis acute organ dysfunction status: without acute organ dysfunction Sepsis type: sepsis due to unspecified organism Qualified Code(s): A41.9 - Sepsis, unspecified organism
[2020-08-10] MEDS: cefTRIAXone SODIUM 2,000 MG in DEXTROSE 5% 50 ML IV SCH (16:43)
[2020-08-10] MEDS: TAMSULOSIN HCL 0.4 MG CAP PO SCH (19:51)
--- NOTE | 2020-08-10 20:42 | Hospitalist Progress Note ---
Date of Service August 10, 2020 Assessment & Plan (1) Fever: following clinical improvement for his group G strep bacteremia the patient then developed a persistent, refractory fever for 2-3 days straight. antipyretics did not break the fever. CT chest was done due to this fever - ?pneumonia vs pulm edema. repeat blood cx's taken - they have remained negative (08/04 and 08/07 cultures all sterile). biofire with COVID - all negative. zosyn was d/c - and within 8 hours his fevers broke completely. given no new infectious etiology found suspect he may have had "DRUG FEVER" from zosyn. will add this to allergy list. no fever now in over 48 hours and he has clinically improved very nicely. of note -- given his cxr today being essentially normal this argues that he had pneumonia even despite the CT chest findings recently. the rapid resolution of infiltrates is more c/w pulmonary edema. can likely stop the doxy tomorrow (would have had 5 days of Rx). cont daily IV rocephin for left leg/foot. (2) Drug-induced fever: 2nd zosyn (highly suspected) see above (3) Bacteremia due to Streptococcus: Bacteremia with severe sepsis. 2nd group G strep. RESOLVED. source - cellulitis of LLE along with infected left foot plantar diabetic ulcer over 5th metatarsal head. concern for osteomyelitis ruled out - MRI L foot with no osteo. repeat blood cx's 08/04 negative; repeat blood cx's from 08/07 also negative. Left tib-fib CT without nec fasc, abscess, gas formation, etc. Echo, although limited, without signs of obvious valvular vegetations. [facility] ID consultation done - they recommend 2 weeks of rocephin post-d/c for bacteremia and the extensive LLE infection. He already has u/s-guided peripheral IV in place. (4) Diabetic foot ulcer associated with type 2 diabetes mellitus: Left 5th metatarsal head diabetic foot ulcer with cellulitis of the left lower extremity. Blood cultures with group G strep - thus, this is likely pathogen causing the infection in ulcer/LLE. CT of left tib-fib - no signs of deeper infection (nec fasc, abscess, etc). CT of left foot - some concern for osteomyelitis of 5th metatarsal head region but MRI NEGATIVE for such. Continue local wound care. Podiatry consult appreciated (Dr Puri). Continue IV antibiotics - rocephin 2gm daily. ID recommending 2 weeks of IV rocephin at discharge. (5) Cellulitis of left lower extremity: As above improved (6) Acute kidney injury: Baseline Creatinine about 2.5 to 2.8. 6.3 at the peak IMPROVING BJ Creatinine now 4.5 today and making adequate urine without assistance of diuretics Likely ATN from septicemia/bacteremia BMP in am. Nephro consult appreciated. No indication for HD fortunately. (7) Acute respiratory failure with hypoxia and hypercapnia: 2nd to pulmonary edema. RESOLVED. Although CT on 08/07 suggested possible pneumonia, his cxr today is essentially normal making pneumonia unlikely (only pulm edema would improve that quickly). cont BIPAP at HS. (8) Acute pulmonary edema: Improved with bumex infusion which ultimately was stopped. Auto-diuresing. Respiratory status has improved / returned to baseline w/ diuresis. off o2. BMP am. (9) SVT (supraventricular tachycardia): Prior to transfer to ICU he was having sinus tach interspersed with either atrial tachycardia or even a 2:1 atrial flutter. suspect former but uncertain. He had not responded to IV or PO beta blockers. He was placed on cardizem infusion with decent response to this. No atrial rhythms since that time. Cardizem has been d/c for several days. Echo noted. TSH wnl. cont coreg. consider outpatient event monitor to exclude PAF / P. aflutter to be complete. (10) Severe obstructive sleep apnea: Was scheduled to get sleep study in the near-future as outpatient. Cont HS BIPAP while here if he can tolerate such. (11) Hypomagnesemia: repleted and now normal (12) Chronic kidney disease, stage IV (severe): baseline Cr 2.5 to 2.8. now with BJ/ARF. see above. (13) HTN (hypertension): Uncontrolled Increase coreg to 25mg BID Cont amlodipine Flomax will help with BP control as well Holding CARMEN due to ARF/BJ. (14) Uncontrolled type 2 diabetes mellitus: Hold semaglutide. a1c >8%. uncontrolled increase lantus to 50 units BID tighten his novolog correction/carb coverage again today (15) Mixed hyperlipidemia: can resume lipitor at discharge LFTs remain wnl (16) BPH loc w urin obs/LUTS: resumed tamsulosin preston out (17) Diabetic nephropathy associated with type 2 diabetes mellitus: baseline CKD stage 4 (18) Elevated troponin: Likely myocardial demand ischemia in setting of bacteremia (19) Morbid obesity with BMI of 45.0-49.9, adult: BMI 45 (20) Multiorgan failure: pulmonary status improved cardiac status stable renal status recovering ID status MUCH improved (21) DM neuropathy, painful: can likely resume renally adjusted lyrica tomorrow if Creatinine continues to improve (22) Pain of left midfoot: gout? this would be a classic location for such, especially in the midst of his serious illness uric acid level very high at 11.5 fortunately the foot feels better today will defer on any specific Rx except for norco prn monitor (23) DVT prophylaxis: SC heparin updated pt's at bedside today PT, OT evals appreciated clear for home anticipate another 2-3 days in the hospital as renal recovery continues Admission and Anticipated Discharge Date Admission Date: August 03, 2020 Subjective tele stable overnight, no atrial dysrhythmia pt's at bedside detailed all recent lab and MRI findings discussed plan of care questions answered patient himself denied any complaints left foot pain improved eating well scant cough no dyspnea feels good anxious to d/c home soon Review of Systems Constitutional: no fever, no chills, no body aches, no fatigue, no malaise, no weakness and no anorexia Respiratory: + cough; no dyspnea and no wheezing Cardiovascular: + edema; no chest pain and no orthopnea Gastrointestinal: no abdominal pain, no nausea, no vomiting and no diarrhea/loose stools Physical Exam Constitutional: + morbidly obese; no acute distress and no altered mental status ENMT: external ear and nose normal, oropharynx normal Respiratory: no respiratory distress Auscultation: + diminished lung sounds (Bases); no crackles and no wheezes Cardiovascular: Rate/Rhythm: regular rate and regular rhythm Heart Sounds: normal S1 and normal S2; no murmur Vessels: posterior tibial pulses present and dorsalis pedis pulses present Extremities: + edema (<1+ b/l ) Gastrointestinal (Abdomen): normal bowel sounds, soft, nontender, no hepatosplenomegaly Musculoskeletal: left mid-foot - not as tender today to palpation Skin: resolving cellulitis Left longoria; Left 5th metatarsal head ulcer clean, no odor, no purulent drainage Psychiatric: Orientation: alert and oriented x 3 Results & Data Results & Data ([facility]) Vital Signs (Past 12 Hours) Vital Signs Temp Pulse Resp BP Pulse Ox 08/10/20 15:04 36.8 C 90 19 139/83 95 08/10/20 11:11 36.9 C 100 H 18 147/82 H 95 Laboratory Results Laboratory Results - last 24 hr 08/10/20 08/10/20 08/10/20 06:45 07:35 11:10 Sodium 136 Potassium 3.9 Chloride 103 Carbon Dioxide 22 Anion Gap 11.0 BUN 71 H Creatinine 4.50 H D Est Cr Clr Drug Dosing 33.1 Est GFR ( Amer) 17.6 Est GFR (Non-Af Amer) 15.2 BUN/Creatinine Ratio 15.7 Glucose 192 H POC Glucose 176 H 194 H Uric Acid 11.3 H Calcium 9.0 08/10/20 08/10/20 16:30 19:54 Sodium Potassium Chloride Carbon Dioxide Anion Gap BUN Creatinine Est Cr Clr Drug Dosing Est GFR ( Amer) Est GFR (Non-Af Amer) BUN/Creatinine Ratio Glucose POC Glucose 205 H 198 H Uric Acid Calcium blood cx's 08/04 and 08/07 negative PG Care Time/CCT Total # of Minutes Spent Total Time Spent with Patient: Total time spent is greater than 50% in coordination of care (as documented) at patient's floor/unit and/or counseling patient: Coding Level of Care Code 77900 Subseq Hosp Care Lvl 3 Diagnoses Fever R50.2 Fever type: drug-induced Drug-induced fever R50.2 Bacteremia due to Streptococcus R78.81; B95.5 Diabetic foot ulcer associated with type 2 diabetes mellitus E11.621; L97.529 Diabetic foot ulcer location: toe Laterality: left Non-pressure ulcer stage: unspecified non-pressure ulcer stage Cellulitis of left lower extremity L03.116 Acute kidney injury N17.9 Acute respiratory failure with hypoxia and hypercapnia J96.01; J96.02 Acute pulmonary edema J81.0 SVT (supraventricular tachycardia) I47.1 Severe obstructive sleep apnea G47.33 Hypomagnesemia E83.42 Chronic kidney disease, stage IV (severe) N18.4 HTN (hypertension) I10 Hypertension type: essential hypertension Uncontrolled type 2 diabetes mellitus E11.65 Glycemic state: with hyperglycemia Mixed hyperlipidemia E78.2 BPH loc w urin obs/LUTS N40.1 Diabetic nephropathy associated with type 2 diabetes mellitus E11.21 Elevated troponin R77.8 Morbid obesity with BMI of 45.0-49.9, adult E66.01; Z68.42 Multiorgan failure DM neuropathy, painful E11.40 Pain of left midfoot M79.672 DVT prophylaxis Z29.9 (1) Diabetic foot ulcer associated with type 2 diabetes mellitus Diabetic foot ulcer location: toe Laterality: left Non-pressure ulcer stage: unspecified non-pressure ulcer stage Qualified Code(s): E11.621 - Type 2 diabetes mellitus with foot ulcer; L97.529 - Non-pressure chronic ulcer of other part of left foot with unspecified severity (2) Fever Fever type: drug-induced Qualified Code(s): R50.2 - Drug induced fever (3) Uncontrolled type 2 diabetes mellitus Glycemic state: with hyperglycemia Qualified Code(s): E11.65 - Type 2 diabetes mellitus with hyperglycemia (4) HTN (hypertension) Hypertension type: essential hypertension Qualified Code(s): I10 - Essential (primary) hypertension
[2020-08-11 06:39] LABS: BUN Creatinine Ratio 18.4 (10-20); Calcium 9.5 mg/dl (8.5-10.1); Creatinine Clr Calc Pharmacy 38.2 ml/min; Est GFR (African American) 21.1 ml/min; Est GFR (Non-African American) 18.2 ml/min; Potassium 4.1 mmol/L (3.5-5.1)
[2020-08-11] MEDS: INSULIN ASPART 100 UNITS/ML 3 ML PEN SC SCH ×4 (07:45→20:44)
[2020-08-11] MEDS: CALCIUM ACETATE 667 MG CAP/TAB PO SCH ×3 (07:49→16:51)
[2020-08-11] MEDS: MULTIVITAMIN TAB PO SCH (07:50)
[2020-08-11] MEDS: carvediloL 25 MG TAB PO SCH ×2 (07:52→20:38)
[2020-08-11] MEDS: amLODIPine BESYLATE 5 MG TAB PO SCH (07:52)
[2020-08-11] MEDS: buPROPion SR 150 MG TABCR PO SCH (07:52)
[2020-08-11] MEDS: HEPARIN SOD 5,000 UNIT/0.5 ML VIAL SQ SCH ×2 (07:53→20:42)
[2020-08-11] MEDS: DOXYCYCLINE HYCLATE 100 MG CAP PO SCH ×2 (07:54→20:38)
[2020-08-11] MEDS: COLLAGENASE OINT 30 GM TUBE EXT SCH (07:54)
[2020-08-11] MEDS: INSULIN GLARGINE SOLOSTAR 100 UNITS/ML 3 ML PEN SC SCH ×2 (09:36→20:43)
--- NOTE | 2020-08-11 10:16 | Nephrology Progress Note ---
Date of Service August 11, 2020 Assessment & Plan (1) Acute kidney injury: * BJ due to hemodynamic injury related to CHF, bacteremia in the setting of CARMEN inhibitor therapy - probable ATN * Baseline Cr 2.5 - 3.0 due to DKD. Cr peaked at 6.3 and is now trending down. Patient is nonoliguric and electrolyte balance is acceptable at this time * Monitor PRP (2) Chronic kidney disease, stage IV (severe): * Stage IV A3 CKD. Baseline creatinine 2.5-3.0 mg/dL. Renal impairment due to DKD * Will require outpatient follow up with Dr. Fonseca within 1-2 weeks of hospital discharge. (3) Pulmonary edema: * Improving. Diuretic is being held. Patient is diuresing on his own. Net -1600 cc overnight (4) Hypertension: * SBP 130 - 150 mmHg overnight * Hold lisinopril until creatinine improves to baseline * Continue amlodipine, carvedilol (5) Sepsis: * Clinically improving * Remains on IV Ceftriaxone therapy, oral Doxycycline. Admission and Anticipated Discharge Date Admission Date: August 03, 2020 Subjective Mr. Manzano was seen & examined in his hospital room this morning. He was breathing comfortably flat in bed on RA. He denied fever, angina or dyspnea. He reports brisk UO. Review of Systems Constitutional: no fever Eyes: no problem reported Ear, Nose, Mouth, Throat: no problem reported Respiratory: no dyspnea Cardiovascular: + edema; no chest pain and no palpitations Gastrointestinal: no abdominal pain, no nausea and no diarrhea/loose stools Genitourinary: no dysuria, no urinary hesitancy and no hematuria Musculoskeletal: no back pain Integumentary: no rash Neurologic: no falls, no dizziness and no confusion Physical Exam Constitutional: not in distress Eyes: PERRL, conjunctivae normal, anicteric sclerae ENMT: external ear and nose normal, oropharynx normal Neck: trachea midline, no thyromegaly Respiratory: normal respiratory effort, lungs clear to auscultation Cardiovascular: RRR, no murmur, no edema Gastrointestinal (Abdomen): normal bowel sounds, soft, nontender, no hepatosplenomegaly Musculoskeletal: Extremities: no cyanosis Skin: no rashes, warm and dry Neurologic: awake; not confused Results & Data ([facility]) Vital Signs (Past 12 Hours) Vital Signs Temp Pulse Pulse Resp BP Pulse Ox 08/11/20 08:00 99 H 08/11/20 07:06 36.5 C 96 H 18 145/85 H 98 08/11/20 04:43 36.7 C 94 H 18 152/88 H 92 08/10/20 23:29 36.7 C 90 18 142/80 H 98 Laboratory Results Laboratory Tests 08/07/20 08/11/20 13:00 05:55 Sodium 137 Potassium 4.1 Chloride 104 Carbon Dioxide 23 BUN 71 H Creatinine 3.88 H D Glucose 144 H Calcium 9.5 Urine Color Yellow Urine Appearance Clear Urine pH 5.5 Ur Specific [place] 1.011 Urine Protein 2+ H Urine Glucose (UA) Negative Urine Blood 1+ H Urine Nitrite Negative Urine RBC (Auto) 5-10 H Urine Bacteria (Auto) Negative Laboratory Tests 04/24/20 08/07/20 08/08/20 05:25 16:40 05:34 Creatinine 2.56 H 6.31 H* 6.05 H* 08/09/20 08/10/20 08/11/20 05:41 06:45 05:55 Creatinine 5.30 H* D 4.50 H D 3.88 H D PG Care Time/CCT Total # of Minutes Spent Total Time Spent with Patient: Total time spent is greater than 50% in coordination of care (as documented) at patient's floor/unit and/or counseling patient: Coding Level of Care Code 30115 Subseq Hosp Care Lvl 3 Diagnoses Acute kidney injury N17.9 Chronic kidney disease, stage IV (severe) N18.4 Pulmonary edema J81.1 Hypertension I10 Sepsis A41.9 Sepsis acute organ dysfunction status: without acute organ dysfunction Sepsis type: sepsis due to unspecified organism (1) Sepsis Sepsis acute organ dysfunction status: without acute organ dysfunction Sepsis type: sepsis due to unspecified organism Qualified Code(s): A41.9 - Sepsis, unspecified organism
[2020-08-11] MEDS: cefTRIAXone SODIUM 2,000 MG in DEXTROSE 5% 50 ML IV SCH (15:29)
[2020-08-11] MEDS: TAMSULOSIN HCL 0.4 MG CAP PO SCH (23:31)
[2020-08-11] MEDS: PREGABALIN 50 MG CAP PO SCH (23:31)
[2020-08-12 06:17] LABS: Hematocrit (blood only) 32.8 % (42-52); Hemoglobin 10.7 g/dL (14.0-18.0); Mean Corpuscular Hemoglobin 27.5 pg (25-34); Mean Corpuscular Hgb Conc 32.6 g/dL (32-36); Mean Corpuscular Volume 84.3 fL (80-100); Mean Platelet Volume 10.6 fL (7.4-10.4); Platelet Count 469 K/uL (130-400); RDW Coefficient of Variation 13.6 % (11.5-14.5); RDW Standard Deviation 41.5 fL (36.4-46.3); Red Blood Count 3.89 M/uL (4.7-6.1); White Blood Count 14.16 K/uL (4.8-10.8)
[2020-08-12] MEDS: HYDROCODONE/ACETAMINOPHEN 7.5/325MG TAB PO PRN ×2 (06:17→21:24)
[2020-08-12 06:50] LABS: BUN Creatinine Ratio 17.8 (10-20); Calcium 9.4 mg/dl (8.5-10.1); Creatinine Clr Calc Pharmacy 40.2 ml/min; Est GFR (African American) 22.4 ml/min; Est GFR (Non-African American) 19.3 ml/min; Potassium 4.2 mmol/L (3.5-5.1)
[2020-08-12] MEDS: INSULIN ASPART 100 UNITS/ML 3 ML PEN SC SCH ×4 (07:40→21:30)
[2020-08-12] MEDS: CALCIUM ACETATE 667 MG CAP/TAB PO SCH ×3 (08:01→17:07)
[2020-08-12] MEDS: carvediloL 25 MG TAB PO SCH ×2 (08:01→21:25)
[2020-08-12] MEDS: amLODIPine BESYLATE 5 MG TAB PO SCH (08:02)
[2020-08-12] MEDS: buPROPion SR 150 MG TABCR PO SCH (08:02)
[2020-08-12] MEDS: MULTIVITAMIN TAB PO SCH (08:03)
[2020-08-12] MEDS: DOXYCYCLINE HYCLATE 100 MG CAP PO SCH (08:05)
[2020-08-12] MEDS: HEPARIN SOD 5,000 UNIT/0.5 ML VIAL SQ SCH ×2 (08:06→21:25)
[2020-08-12] MEDS: cefTRIAXone SODIUM 2,000 MG in DEXTROSE 5% 50 ML IV SCH (08:10)
[2020-08-12] MEDS: PREGABALIN 50 MG CAP PO SCH ×2 (08:10→21:24)
[2020-08-12] MEDS: COLLAGENASE OINT 30 GM TUBE EXT SCH (08:25)
--- NOTE | 2020-08-12 09:09 | Hospitalist Progress Note ---
Date of Service August 11, 2020 Assessment & Plan (1) Bacteremia due to Streptococcus: Bacteremia with severe sepsis. 2nd group G strep. RESOLVED. source - cellulitis of LLE along with infected left foot plantar diabetic ulcer over 5th metatarsal head. concern for osteomyelitis ruled out - MRI L foot with no osteo. repeat blood cx's 08/04 negative; repeat blood cx's from 08/07 also negative. Left tib-fib CT without nec fasc, abscess, gas formation, etc. Echo, although limited, did not show signs of obvious valvular vegetations[facility] recommend 2 weeks of rocephin post-d/c for bacteremia and the extensive LLE infection. He already has u/s-guided peripheral IV in place. Cont rocephin; will notify social work of need for rocephin post-d/c. (2) Diabetic foot ulcer associated with type 2 diabetes mellitus: Left 5th metatarsal head diabetic foot ulcer with cellulitis of the left lower extremity. IMPROVED. Blood cultures with group G strep - thus, this is likely pathogen causing the infection in ulcer/LLE. CT of left tib-fib - no signs of deeper infection (nec fasc, abscess, etc). CT of left foot - some concern for osteomyelitis of 5th metatarsal head region but MRI NEGATIVE for such. Continue local wound care including daily santyl's. Ulcer very clean today. Podiatry consult appreciated (Dr Puri). Continue IV antibiotics - rocephin 2gm daily. ID recommending 2 weeks of IV rocephin at discharge. (3) Cellulitis of left lower extremity: As above improved/resolving (4) Fever: following clinical improvement for his group G strep bacteremia the patient then developed a persistent, refractory fever for 2-3 days straight. antipyretics did not break the fever. CT chest was done due to this fever - ?pneumonia vs pulm edema. repeat blood cx's taken - they have remained negative (08/04 and 08/07 cultures all sterile). biofire with COVID - all negative. legionella urine ag negative. zosyn was d/c - and within 8 hours his fevers broke completely. given no new infectious etiology found suspect he may have had "DRUG FEVER" from zosyn. added this to allergy list. A vasculitis work-up was sent and is pending. However, vasculitis not suspected - it would not have resolved on its own (he would have needed steroid therapy). no fever now in over 72 hours 08/10/20 cxr was essentially normal. this argues that he had pneumonia even despite the CT chest findings recently. the rapid resolution of infiltrates is more c/w pulmonary edema. 5-day course of doxy (precautionary measure) complerted - will d/c tonight. cont daily IV rocephin for left leg/foot. (5) Drug-induced fever: 2nd zosyn (highly suspected) see above (6) Acute kidney injury: Baseline Creatinine about 2.5 to 2.8. 6.3 at the peak IMPROVING BJ Creatinine now 3.8 today and making adequate urine without assistance of diuretics Likely ATN from septicemia/bacteremia BMP in am. Nephro consult appreciated. No indication for HD fortunately. (7) Acute respiratory failure with hypoxia and hypercapnia: 2nd to pulmonary edema. RESOLVED. Although CT on 08/07 suggested possible pneumonia, his cxr yesterday was essentially normal making pneumonia unlikely (only pulm edema would have improved that quickly). cont BIPAP at HS. (8) Acute pulmonary edema: Improved with bumex infusion which ultimately was stopped. Acute pulm edema 2nd to acute renal failure in the setting of CKD. Continues to auto-diurese. Respiratory status has improved / returned to baseline w/ diuresis. off o2. BMP am. (9) SVT (supraventricular tachycardia): Prior to transfer to ICU he was having sinus tach interspersed with either atrial tachycardia or even a 2:1 atrial flutter. suspect former but uncertain. He had not responded to IV or PO beta blockers. He was placed on cardizem infusion with decent response to this. No atrial rhythms since that time. Cardizem has been d/c for several days. Echo noted. TSH wnl. cont coreg. consider outpatient event monitor to exclude PAF / P. aflutter to be complete. (10) Severe obstructive sleep apnea: Was scheduled to get sleep study in the near-future as outpatient. Cont HS BIPAP while here if he can tolerate such. (11) Hypomagnesemia: repleted and now normal (12) Chronic kidney disease, stage IV (severe): baseline Cr 2.5 to 2.8. now with BJ/ARF. Cr down to 3.8. see above. (13) HTN (hypertension): Improved with increase in coreg to 25mg BID Cont amlodipine Flomax will help with BP control as well Holding CARMEN due to ARF/BJ. (14) Uncontrolled type 2 diabetes mellitus: Hold semaglutide. a1c >8%. 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 (20) Multiorgan failure: pulmonary status now normal cardiac status stable renal status recovering ID status MUCH improved (21) DM neuropathy, painful: resume renally adjusted lyrica at 50mg BID (22) Pain of left midfoot: although uric acid level was very high at 11.5 his pain has improved without NSAIDs or steroids thus, pain likely due to his infection rather than gout cont to monitor (23) DVT prophylaxis: SC heparin updated pt's at bedside yesterday PT, OT ernesto appreciated clear for home will inform SW of need for 2 weeks of IV rocephin 2gm daily after d/c at home if Creatinine is again improved tomorrow - home Thursday? Thursday? Admission and Anticipated Discharge Date Admission Date: August 03, 2020 Subjective tele overnight again NSR he feels well NO NEW COMPLAINTS TODAY hoping to get d/c soon ambulating eating well moving bowels w/o diarrhea no dyspnea cough resolved no orthopnea mild left foot pain remains but certainly not any worse Review of Systems Constitutional: no fever, no chills, no fatigue, no weakness and no anorexia Respiratory: no cough, no dyspnea and no dyspnea on exertion Cardiovascular: no chest pain and no edema Gastrointestinal: no abdominal pain Physical Exam Constitutional: + morbidly obese; no acute distress and no altered mental status ENMT: external ear and nose normal, oropharynx normal Respiratory: no respiratory distress Auscultation: + diminished lung sounds (Bases); no crackles and no wheezes Cardiovascular: Rate/Rhythm: regular rate and regular rhythm Heart Sounds: normal S1 and normal S2; no murmur Vessels: posterior tibial pulses present and dorsalis pedis pulses present Extremities: + edema (Trace RLE; <1+ distal LLE) Gastrointestinal (Abdomen): normal bowel sounds, soft, nontender, no hepatosplenomegaly Musculoskeletal: no cyanosis or clubbing, extremities motor strength 5/5 (Left foot - no mid-foot pain w/ palpation today ) Skin: + rash (Stasis dermatitis LLE longoria; cellulitis - LLE - minimal residual infection) and + ulcer (L 5th metatarsal head - clean, no drainage, no o) Psychiatric: Orientation: alert and oriented x 3 Results & Data Results & Data ([facility]) Vital Signs (Past 12 Hours) Vital Signs Temp Pulse Resp BP Pulse Ox 08/12/20 08:09 36.7 C 93 H 17 145/86 H 96 08/12/20 04:13 37.0 C 87 18 124/72 96 08/11/20 23:56 36.8 C 81 18 123/71 95 Cr 3.8 today BSGs <200 PG Care Time/CCT Total # of Minutes Spent Total Time Spent with Patient: Total time spent is greater than 50% in coordination of care (as documented) at patient's floor/unit and/or counseling patient: Coding Level of Care Code 52244 Subseq Hosp Care Lvl 3 Diagnoses Bacteremia due to Streptococcus R78.81; B95.5 Diabetic foot ulcer associated with type 2 diabetes mellitus E11.621; L97.529 Diabetic foot ulcer location: toe Laterality: left Non-pressure ulcer stage: unspecified non-pressure ulcer stage Cellulitis of left lower extremity L03.116 Fever R50.2 Fever type: drug-induced Drug-induced fever R50.2 Acute kidney injury N17.9 Acute respiratory failure with hypoxia and hypercapnia J96.01; J96.02 Acute pulmonary edema J81.0 SVT (supraventricular tachycardia) I47.1 Severe obstructive sleep apnea G47.33 Hypomagnesemia E83.42 Chronic kidney disease, stage IV (severe) N18.4 HTN (hypertension) I10 Hypertension type: essential hypertension Uncontrolled type 2 diabetes mellitus E11.65 Glycemic state: with hyperglycemia Mixed hyperlipidemia E78.2 BPH loc w urin obs/LUTS N40.1 Diabetic nephropathy associated with type 2 diabetes mellitus E11.21 Elevated troponin R77.8 Morbid obesity with BMI of 45.0-49.9, adult E66.01; Z68.42 Multiorgan failure DM neuropathy, painful E11.40 Pain of left midfoot M79.672 DVT prophylaxis Z29.9 (1) Diabetic foot ulcer associated with type 2 diabetes mellitus Diabetic foot ulcer location: toe Laterality: left Non-pressure ulcer stage: unspecified non-pressure ulcer stage Qualified Code(s): E11.621 - Type 2 diabetes mellitus with foot ulcer; L97.529 - Non-pressure chronic ulcer of other part of left foot with unspecified severity (2) Fever Fever type: drug-induced Qualified Code(s): R50.2 - Drug induced fever (3) Uncontrolled type 2 diabetes mellitus Glycemic state: with hyperglycemia Qualified Code(s): E11.65 - Type 2 diabetes mellitus with hyperglycemia (4) HTN (hypertension) Hypertension type: essential hypertension Qualified Code(s): I10 - Essential (primary) hypertension
[2020-08-12] MEDS: INSULIN GLARGINE SOLOSTAR 100 UNITS/ML 3 ML PEN SC SCH ×2 (09:33→21:34)
--- NOTE | 2020-08-12 10:48 | Nephrology Progress Note ---
Date of Service August 12, 2020 Assessment & Plan (1) Acute kidney injury: * BJ due to hemodynamic injury related to CHF, bacteremia in the setting of CARMEN inhibitor therapy - probable ATN * Continue to hold Lisinopril * Baseline Cr 2.5 - 3.0 due to DKD. Cr peaked at 6.3 and is now trending down. Patient is nonoliguric and electrolyte balance is acceptable at this time * Monitor PRP (2) Chronic kidney disease, stage IV (severe): * Stage IV A3 CKD. Baseline creatinine 2.5-3.0 mg/dL. Renal impairment due to DKD * Will require outpatient follow up with Dr. Fonseca within 1-2 weeks of hospital discharge. (3) Pulmonary edema: * Resolved. Patient is diuresing on his own. Diuretic has been held. Net -1400 cc overnight (4) Hypertension: * SBP 130 - 150 mmHg overnight * Hold Lisinopril until creatinine improves to baseline * Continue Amlodipine, Carvedilol (5) Sepsis: * Clinically improving * Remains on IV Ceftriaxone therapy, oral Doxycycline. Admission and Anticipated Discharge Date Admission Date: August 03, 2020 Subjective Mr. Manzano was seen & examined in his hospital room this morning. He was breathing comfortably flat in bed on RA. He denied fever, angina or dyspnea. He reports brisk UO. Review of Systems Constitutional: no fever Eyes: no problem reported Ear, Nose, Mouth, Throat: no problem reported Respiratory: no dyspnea Cardiovascular: + edema; no chest pain and no palpitations Gastrointestinal: no abdominal pain, no nausea and no diarrhea/loose stools Genitourinary: no dysuria, no urinary hesitancy and no hematuria Musculoskeletal: no back pain Integumentary: no rash Neurologic: no falls, no dizziness and no confusion Physical Exam Constitutional: not in distress Eyes: PERRL, conjunctivae normal, anicteric sclerae ENMT: external ear and nose normal, oropharynx normal Neck: trachea midline, no thyromegaly Respiratory: normal respiratory effort, lungs clear to auscultation Cardiovascular: RRR, no murmur, no edema Gastrointestinal (Abdomen): normal bowel sounds, soft, nontender, no hepatosplenomegaly Musculoskeletal: Extremities: no cyanosis Skin: no rashes, warm and dry Neurologic: awake; not confused Results & Data ([facility]) Vital Signs (Past 12 Hours) Vital Signs Temp Pulse Pulse Resp BP Pulse Ox 08/12/20 08:09 36.7 C 93 H 17 145/86 H 96 08/12/20 08:00 95 H 08/12/20 04:13 37.0 C 87 18 124/72 96 08/11/20 23:56 36.8 C 81 18 123/71 95 Laboratory Tests 08/12/20 08/12/20 05:46 05:46 WBC 14.16 H Hgb 10.7 L Hct 32.8 L Plt Count 469 H Sodium 136 Potassium 4.2 Chloride 104 Carbon Dioxide 23 BUN 66 H Creatinine 3.69 H Glucose 135 H Laboratory Tests 08/07/20 08/08/20 08/09/20 16:40 05:34 05:41 Creatinine 6.31 H* 6.05 H* 5.30 H* D 08/10/20 08/11/20 08/12/20 06:45 05:55 05:46 Creatinine 4.50 H D 3.88 H D 3.69 H PG Care Time/CCT Total # of Minutes Spent Total Time Spent with Patient: Total time spent is greater than 50% in coordination of care (as documented) at patient's floor/unit and/or counseling patient: Coding Level of Care Code 51082 Subseq Hosp Care Lvl 3 Diagnoses Acute kidney injury N17.9 Chronic kidney disease, stage IV (severe) N18.4 Pulmonary edema J81.1 Hypertension I10 Sepsis A41.9 Sepsis acute organ dysfunction status: without acute organ dysfunction Sepsis type: sepsis due to unspecified organism (1) Sepsis Sepsis acute organ dysfunction status: without acute organ dysfunction Sepsis type: sepsis due to unspecified organism Qualified Code(s): A41.9 - Sepsis, unspecified organism
[2020-08-12] MEDS: TAMSULOSIN HCL 0.4 MG CAP PO SCH (21:25)
--- NOTE | 2020-08-12 21:53 | Hospitalist Progress Note ---
Date of Service August 12, 2020 Assessment & Plan (1) Bacteremia due to Streptococcus: Bacteremia with severe sepsis. 2nd group G strep. RESOLVED. source - cellulitis of LLE along with infected left foot plantar diabetic ulcer over 5th metatarsal head. concern for osteomyelitis ruled out - MRI L foot with no osteo. repeat blood cx's 08/04 negative; repeat blood cx's from 08/07 also negative. Left tib-fib CT without nec fasc, abscess, gas formation, etc. Echo, although limited, did not show signs of obvious valvular vegetations. [facility] - they recommend 2 weeks of rocephin post-d/c for bacteremia and the extensive LLE infection. He already has u/s-guided peripheral IV in place. Cont rocephin; will notify social work of need for rocephin post-d/c. WBC has been creeping up. will monitor. (2) Diabetic foot ulcer associated with type 2 diabetes mellitus: Left 5th metatarsal head diabetic foot ulcer with cellulitis of the left lower extremity. IMPROVED. Blood cultures with group G strep - thus, this is likely pathogen causing the infection in ulcer/LLE. CT of left tib-fib - no signs of deeper infection (nec fasc, abscess, etc). CT of left foot - some concern for osteomyelitis of 5th metatarsal head region but MRI NEGATIVE for such. Continue local wound care including daily santyl's. Ulcer very clean today. Podiatry consult appreciated (Dr Puri). Continue IV antibiotics - rocephin 2gm daily. ID recommending 2 weeks of IV rocephin at discharge. (3) Cellulitis of left lower extremity: As above improved/resolving (4) Fever: following clinical improvement for his group G strep bacteremia the patient then developed a persistent, refractory fever for 2-3 days straight. antipyretics did not break the fever. CT chest was done due to this fever - ?pneumonia vs pulm edema. repeat blood cx's taken - they have remained negative (08/04 and 08/07 cultures all sterile). biofire with COVID - all negative. legionella urine ag negative. zosyn was d/c - and within 8 hours his fevers broke completely. given no new infectious etiology found suspect he may have had "DRUG FEVER" from zosyn. added this to allergy list. A vasculitis work-up was sent and is pending. However, vasculitis not suspected - it would not have resolved on its own (he would have needed steroid therapy). no fever now in over 72 hours 08/10/20 cxr was essentially normal. this argues that he had pneumonia even despite the CT chest findings recently. the rapid resolution of infiltrates is more c/w pulmonary edema. 5-day course of doxy (precautionary measure) complerted - will d/c tonight. cont daily IV rocephin for left leg/foot. (5) Drug-induced fever: 2nd zosyn (highly suspected) see above (6) Acute kidney injury: Baseline Creatinine about 2.5 to 2.8. 6.3 at the peak IMPROVING BJ Creatinine now 3.8 today and making adequate urine without assistance of diuretics Likely ATN from septicemia/bacteremia BMP in am. Nephro consult appreciated. No indication for HD fortunately. (7) Acute respiratory failure with hypoxia and hypercapnia: 2nd to pulmonary edema. RESOLVED. Although CT on 08/07 suggested possible pneumonia, his cxr yesterday was essentially normal making pneumonia unlikely (only pulm edema would have improved that quickly). cont BIPAP at HS. (8) Acute pulmonary edema: Improved with bumex infusion which ultimately was stopped. Acute pulm edema 2nd to acute renal failure in the setting of CKD. Continues to auto-diurese. Respiratory status has improved / returned to baseline w/ diuresis. off o2. BMP am. (9) SVT (supraventricular tachycardia): Prior to transfer to ICU he was having sinus tach interspersed with either atrial tachycardia or even a 2:1 atrial flutter. suspect former but uncertain. He had not responded to IV or PO beta blockers. He was placed on cardizem infusion with decent response to this. No atrial rhythms since that time. Cardizem has been d/c for several days. Echo noted. TSH wnl. cont coreg. consider outpatient event monitor to exclude PAF / P. aflutter to be complete. (10) Severe obstructive sleep apnea: Was scheduled to get sleep study in the near-future as outpatient. Cont HS BIPAP while here if he can tolerate such. (11) Hypomagnesemia: repleted and now normal (12) Chronic kidney disease, stage IV (severe): baseline Cr 2.5 to 2.8. now with BJ/ARF. Cr down to 3.8. see above. (13) HTN (hypertension): Improved with increase in coreg to 25mg BID Cont amlodipine Flomax will help with BP control as well Holding CARMEN due to ARF/BJ. (14) Uncontrolled type 2 diabetes mellitus: Hold semaglutide. a1c >8%. uncontrolled but improved with increase in lantus to 50 units BID and novolog adjustments (15) Mixed hyperlipidemia: can resume lipitor at discharge (16) BPH loc w urin obs/LUTS: no issues continue tamsulosin preston out (17) Diabetic nephropathy associated with type 2 diabetes mellitus: baseline CKD stage 4 (18) Elevated troponin: Likely myocardial demand ischemia in setting of bacteremia no ACS while here (19) Morbid obesity with BMI of 45.0-49.9, adult: BMI [address] Schwartz -- Gustavo Burdick Weight loss [facility] management specialist (20) Multiorgan failure: pulmonary status now normal cardiac status stable renal status recovering ID status MUCH improved (21) DM neuropathy, painful: resume renally adjusted lyrica at 50mg BID (22) Pain of left midfoot: although uric acid level was very high at 11.5 his pain has improved without NSAIDs or steroids thus, pain likely due to his infection rather than gout cont to monitor (23) DVT prophylaxis: SC heparin updated pt's at bedside yesterday PT, OT ernesto appreciated clear for home will inform SW of need for 2 weeks of IV rocephin 2gm daily after d/c at home if Creatinine is again improved tomorrow - home Thursday? Thursday? Admission and Anticipated Discharge Date Admission Date: August 03, 2020 Subjective 40 year old male reports no new symptoms today. He reports no fever/chills/ nausea vomiting. Review of Systems Review of Systems: All systems reviewed & are unremarkable except as noted in HPI & below Physical Exam Physical Exam: Constitutional: + morbidly obese; no acute distress and no altered mental status ENMT: external ear and nose normal, oropharynx normal Respiratory: no respiratory distress Auscultation: + diminished lung sounds (Bases); no crackles and no wheezes Cardiovascular: Rate/Rhythm: regular rate and regular rhythm Heart Sounds: normal S1 and normal S2; no murmur Vessels: posterior tibial pulses present and dorsalis pedis pulses present Extremities: + edema (Trace RLE; <1+ distal LLE) Gastrointestinal (Abdomen): normal bowel sounds, soft, nontender, no hepatosplenomegaly Musculoskeletal: no cyanosis or clubbing, extremities motor strength 5/5 (Left foot - no mid-foot pain w/ palpation today ) Skin: + rash (Stasis dermatitis LLE longoria; cellulitis - LLE - minimal residual infection) and + ulcer (L 5th metatarsal head - clean, no drainage, no o) Psychiatric: Orientation: alert and oriented x 3 Results & Data Results & Data ([facility]) Vital Signs (Past 12 Hours) Vital Signs Temp Pulse Resp BP Pulse Ox 08/12/20 19:25 36.6 C 85 18 134/79 95 08/12/20 15:33 36.7 C 84 16 124/69 95 08/12/20 12:17 36.5 C 82 19 108/58 L 96 PG Care Time/CCT Total # of Minutes Spent Total Time Spent with Patient: Total time spent is greater than 50% in coordination of care (as documented) at patient's floor/unit and/or counseling patient: Coding Level of Care Code 13556 Subseq Hosp Care Lvl 3 Diagnoses Bacteremia due to Streptococcus R78.81; B95.5 Diabetic foot ulcer associated with type 2 diabetes mellitus E11.621; L97.529 Diabetic foot ulcer location: toe Laterality: left Non-pressure ulcer stage: unspecified non-pressure ulcer stage Cellulitis of left lower extremity L03.116 Fever R50.2 Fever type: drug-induced Drug-induced fever R50.2 Acute kidney injury N17.9 Acute respiratory failure with hypoxia and hypercapnia J96.01; J96.02 Acute pulmonary edema J81.0 SVT (supraventricular tachycardia) I47.1 Severe obstructive sleep apnea G47.33 Hypomagnesemia E83.42 Chronic kidney disease, stage IV (severe) N18.4 HTN (hypertension) I10 Hypertension type: essential hypertension Uncontrolled type 2 diabetes mellitus E11.65 Glycemic state: with hyperglycemia Mixed hyperlipidemia E78.2 BPH loc w urin obs/LUTS N40.1 Diabetic nephropathy associated with type 2 diabetes mellitus E11.21 Elevated troponin R77.8 Morbid obesity with BMI of 45.0-49.9, adult E66.01; Z68.42 Multiorgan failure DM neuropathy, painful E11.40 Pain of left midfoot M79.672 DVT prophylaxis Z29.9 Time Spent (min) 35 Comment chart review (1) Diabetic foot ulcer associated with type 2 diabetes mellitus Diabetic foot ulcer location: toe Laterality: left Non-pressure ulcer stage: unspecified non-pressure ulcer stage Qualified Code(s): E11.621 - Type 2 diabetes mellitus with foot ulcer; L97.529 - Non-pressure chronic ulcer of other part of left foot with unspecified severity (2) Fever Fever type: drug-induced Qualified Code(s): R50.2 - Drug induced fever (3) Uncontrolled type 2 diabetes mellitus Glycemic state: with hyperglycemia Qualified Code(s): E11.65 - Type 2 diabetes mellitus with hyperglycemia (4) HTN (hypertension) Hypertension type: essential hypertension Qualified Code(s): I10 - Essential (primary) hypertension
[2020-08-13] MEDS: INSULIN GLARGINE SOLOSTAR 100 UNITS/ML 3 ML PEN SC SCH (08:07)
[2020-08-13] MEDS: INSULIN ASPART 100 UNITS/ML 3 ML PEN SC SCH ×2 (08:07→12:49)
[2020-08-13] MEDS: buPROPion SR 150 MG TABCR PO SCH (08:08)
[2020-08-13] MEDS: CALCIUM ACETATE 667 MG CAP/TAB PO SCH ×2 (08:08→12:48)
[2020-08-13] MEDS: MULTIVITAMIN TAB PO SCH (08:08)
[2020-08-13] MEDS: HEPARIN SOD 5,000 UNIT/0.5 ML VIAL SQ SCH (08:08)
[2020-08-13] MEDS: amLODIPine BESYLATE 5 MG TAB PO SCH (08:08)
[2020-08-13] MEDS: carvediloL 25 MG TAB PO SCH (08:08)
[2020-08-13] MEDS: COLLAGENASE OINT 30 GM TUBE EXT SCH (08:09)
[2020-08-13] MEDS: cefTRIAXone SODIUM 2,000 MG in DEXTROSE 5% 50 ML IV SCH (08:10)
[2020-08-13] MEDS: PREGABALIN 50 MG CAP PO SCH (08:19)
[2020-08-13 08:37] LABS: Hematocrit (blood only) 36.2 % (42-52); Mean Corpuscular Volume 84.4 fL (80-100); Mean Platelet Volume 10.6 fL (7.4-10.4); Platelet Count 454 K/uL (130-400); RDW Coefficient of Variation 13.6 % (11.5-14.5); RDW Standard Deviation 41.3 fL (36.4-46.3); Red Blood Count 4.29 M/uL (4.7-6.1); White Blood Count 14.59 K/uL (4.8-10.8)
[2020-08-13 09:13] LABS: Mean Corpuscular Hgb Conc 33.1 g/dL (32-36)
--- NOTE | 2020-08-13 09:32 | Nephrology Progress Note ---
Date of Service August 13, 2020 Assessment & Plan (1) Acute kidney injury: * BJ due to hemodynamic injury related to CHF, bacteremia in the setting of CARMEN inhibitor therapy - probable ATN * Continue to hold Lisinopril * Baseline Cr 2.5 - 3.0 due to DKD. Cr peaked at 6.3 and is now trending down. PRP this morning is pending * Monitor PRP (2) Chronic kidney disease, stage IV (severe): * Stage IV A3 CKD. Baseline creatinine 2.5-3.0 mg/dL. Renal impairment due to DKD * Will require outpatient follow up with Dr. Fonseca within 1-2 weeks of hospital discharge. (3) Pulmonary edema: * Resolved. Patient is diuresing on his own. Diuretic has been held. Net -836 cc overnight (4) Hypertension: * SBP 130 - 150 mmHg overnight * Hold Lisinopril until creatinine improves to baseline * Continue Amlodipine, Carvedilol (5) Sepsis: * Clinically improving * Remains on IV Ceftriaxone therapy, oral Doxycycline. Admission and Anticipated Discharge Date Admission Date: August 03, 2020 Subjective Mr. Manzano was seen & examined in his hospital room this morning. He was breathing comfortably on RA. He denied fever, angina or dyspnea. He reports brisk UO. Review of Systems Constitutional: no fever Eyes: no problem reported Ear, Nose, Mouth, Throat: no problem reported Respiratory: no dyspnea Cardiovascular: + edema; no chest pain and no palpitations Gastrointestinal: no abdominal pain, no nausea and no diarrhea/loose stools Genitourinary: no dysuria, no urinary hesitancy and no hematuria Musculoskeletal: no back pain Integumentary: no rash Neurologic: no falls, no dizziness and no confusion Physical Exam Constitutional: not in distress Eyes: PERRL, conjunctivae normal, anicteric sclerae ENMT: external ear and nose normal, oropharynx normal Neck: trachea midline, no thyromegaly Respiratory: normal respiratory effort, lungs clear to auscultation Cardiovascular: RRR, no murmur, no edema Gastrointestinal (Abdomen): normal bowel sounds, soft, nontender, no hep atosplenomegaly Musculoskeletal: Extremities: no cyanosis Skin: no rashes, warm and dry Neurologic: awake; not confused Results & Data ([facility]) Vital Signs (Past 12 Hours) Vital Signs Temp Pulse Pulse Resp BP Pulse Ox 08/13/20 08:00 92 H 08/13/20 07:25 36.6 C 87 20 149/91 H 99 08/13/20 04:04 36.6 C 84 16 147/85 H 98 08/12/20 23:49 36.6 C 84 18 110/65 98 08/12/20 22:20 92 H Laboratory Tests 08/13/20 08:23 WBC 14.59 H Hgb 12.0 L Hct 36.2 L Plt Count 454 H PG Care Time/CCT Total # of Minutes Spent Total Time Spent with Patient: Total time spent is greater than 50% in coordination of care (as documented) at patient's floor/unit and/or counseling patient: Coding Level of Care Code 25388 Subseq Hosp Care Lvl 3 Diagnoses Acute kidney injury N17.9 Chronic kidney disease, stage IV (severe) N18.4 Pulmonary edema J81.1 Hypertension I10 Sepsis A41.9 Sepsis acute organ dysfunction status: without acute organ dysfunction Sepsis type: sepsis due to unspecified organism (1) Sepsis Sepsis acute organ dysfunction status: without acute organ dysfunction Sepsis type: sepsis due to unspecified organism Qualified Code(s): A41.9 - Sepsis, unspecified organism
[2020-08-13 10:05] LABS: BUN Creatinine Ratio 17.2 (10-20); Calcium 8.6 mg/dl (8.5-10.1); Creatinine Clr Calc Pharmacy 43.6 ml/min; Est GFR (African American) 24.9 ml/min; Est GFR (Non-African American) 21.5 ml/min; Potassium 4.3 mmol/L (3.5-5.1)
[2020-08-13 10:10] LABS: Basophils # (auto) 0.04 K/uL (0-0.2); Basophils % (auto) 0.3 %; Eosinophils # (auto) 0.23 K/uL (0-0.5); Eosinophils % (auto) 1.7 %; Immature Granulocytes # (auto) 0.73 K/uL (0.00-0.02); Immature Granulocytes % (auto) 5.3 %; Lymphocytes # (auto) 3.47 K/uL (1.2-3.4); Lymphocytes % (auto) 25.3 %; Monocytes # (auto) 0.88 K/uL (0.11-0.59); Monocytes % (auto) 6.4 %; Neutrophils # (auto) 8.36 K/uL (1.4-6.5)
--- NOTE | 2020-08-13 11:58 | XRay Report ---
XR chest 1V portable HISTORY: leukocytosis COMPARISON: Chest 08/10/2020. FINDINGS: No pneumothorax. No pleural effusions. The heart remains mildly enlarged. There are low federico g volumes. No new focal lung consolidations to suggest pneumonia. No evidence for pulmonary edema. IMPRESSION: Stable mild cardiomegaly. Otherwise, no acute process within the chest. ACT 112: Negative or not required by law. Electronically signed by: Ken Robbins M.D. 08/13/2020 11:57 AM
--- NOTE | 2020-08-13 11:59 | XRay Report ---
KUB HISTORY: leukocytosis COMPARISON: Abdomen and pelvis CT 01/11/2020. FINDINGS: The bowel gas pattern is unremarkable. There are no dilated loops of small bowel to suggest an obstruction. No renal calculi. No ureteral calculi. No pneumoperitoneum or pneumatosis. Prior ch olecystectomy. IMPRESSION: No evidence for bowel obstruction. ACT 112: Negative or not required by law. Electronically signed by: Ken Robbins M.D. 08/13/2020 11:58 AM
[2020-08-14 12:04] LABS: ANCA Screen Negative (Negative); Anti Cardiolipin Ab IgG <14 GPL; Anti Cardiolipin Ab IgM <12 MPL; Anti Nuclear Antibody Screen NEGATIVE (NEGATIVE); Anti-Cardiolipin Ab IgA <11 APL; Anti-Centromere Ab <1.0 NEG AI (<1.0 NEG); Anti-Glom Basement Antibody <1.0 AI (<1.0); Anti-SS-A <1.0 NEG AI (<1.0 NEG); Anti-SS-B <1.0 NEG AI (<1.0 NEG); Chromatin Antibody <1.0 NEG AI (<1.0 NEG); Complement C3 197 mg/dL (82-185); DNA ds Crithidia NEGATIVE (NEGATIVE); Microsomal Ab <1 IU/mL (<9); RNP Antibody <1.0 NEG AI (<1.0 NEG); Scleroderma Anti Scl-70 Ab <1.0 NEG AI (<1.0 NEG); Sm Antibody <1.0 NEG AI (<1.0 NEG)
--- NOTE | 2020-08-19 23:42 | Discharge Summary ---
Date of Service August 13, 2020 Admission HPI Per Admitting Provider The patient is a 40-year-old male with a past medical history including hospitalization from 04/13-04/26/2020 for right foot diabetic ulcer, diabetes mellitus, severe UNIQUE, CKD stage IV, morbid obesity with BMI 48, fatty liver, kidney stones, mixed hyperlipidemia, hidradenitis suppurativa, hyperlipidemia, hypertension, diabetic retinopathy, and diabetic nephropathy. Patient's presentation for his left foot today, is similar to the presentation for his right foot earlier in the year. Principal Diagnosis bacteremia Discharge Exam Constitutional: + morbidly obese; no acute distress and no altered mental status ENMT: external ear and nose normal, oropharynx normal Respiratory: no respiratory distress Auscultation: + diminished lung sounds (Bases); no crackles and no wheezes Cardiovascular: Rate/Rhythm: regular rate and regular rhythm Heart Sounds: normal S1 and normal S2; no murmur Vessels: posterior tibial pulses present and dorsalis pedis pulses present Extremities: + edema (Trace RLE; <1+ distal LLE) Gastrointestinal (Abdomen): normal bowel sounds, soft, nontender, no hepatosplenomegaly Musculoskeletal: no cyanosis or clubbing, extremities motor strength 5/5 (Left foot - no mid-foot pain w/ palpation today ) Skin: + rash (Stasis dermatitis LLE longoria; cellulitis - LLE - minimal residual infection) and + ulcer (L 5th metatarsal head - clean, no drainage) Psychiatric: Orientation: alert and oriented x 3 Discharge Data Allergies Allergy/AdvReac Type Severity Reaction Status Date / Time piperacillin [From Zosyn] Allergy Severe Fever Verified 08/12/20 08:30 tazobactam [From Zosyn] Allergy Severe Fever Verified 08/12/20 08:30 amoxicillin AdvReac Mild Gastrointestinal Verified 08/04/20 00:12 Upset Consultations 08/03/20 22:36 ED Decision to Admit Stat 08/04/20 05:04 Consult Podiatry Routine 08/04/20 18:36 Consult Financial Services Agent Routine 08/05/20 06:14 Consult Nephrology Routine 08/06/20 10:27 Consult Infectious Diseases Routine Ordered Studies 08/04/20 12:30 CT foot LT wo con Urgent 08/04/20 12:42 CT tib/fib LT wo con Routine 08/04/20 19:39 US venous doppler LE BI Stat 08/07/20 10:35 CT chest diagnostic wo con Urgent 08/07/20 11:00 US renal/blad retro comp Routine 08/10/20 12:23 MR foot LT w/o con Routine Hospital Course (1) Bacteremia due to Streptococcus: Bacteremia with severe sepsis. 2nd group G strep. RESOLVED. source - cellulitis of LLE along with infected left foot plantar diabetic ulcer over 5th metatarsal head. concern for osteomyelitis ruled out - MRI L foot with no osteo. repeat blood cx's 08/04 negative; repeat blood cx's from 08/07 also negative. Left tib-fib CT without nec fasc, abscess, gas formation, etc. Echo, although limited, did not show signs of obvious valvular vegetations. [facility] ID consultation done - they recommend 2 weeks of rocephin post-d/c for bacteremia and the extensive LLE infection. He already has u/s-guided peripheral IV in place. Cont rocephin; will notify social work of need for rocephin post-d/c. WBC has been creeping up, procal is normal, no fever, clinically doing well Patient agreeable to discharge. (2) Diabetic foot ulcer associated with type 2 diabetes mellitus: Left 5th metatarsal head diabetic foot ulcer with cellulitis of the left lower extremity. IMPROVED. Blood cultures with group G strep - thus, this is likely pathogen causing the infection in ulcer/LLE. CT of left tib-fib - no signs of deeper infection (nec fasc, abscess, etc). CT of left foot - some concern for osteomyelitis of 5th metatarsal head region but MRI NEGATIVE for such. Continue local wound care including daily santyl's. Ulcer very clean today. Podiatry consult appreciated (Dr Puri). Continue IV antibiotics - rocephin 2gm daily. ID recommending 2 weeks of IV rocephin at discharge. (3) Cellulitis of left lower extremity: As above improved/resolving (4) Fever: following clinical improvement for his group G strep bacteremia the patient then developed a persistent, refractory fever for 2-3 days straight. antipyretics did not break the fever. CT chest was done due to this fever - ?pneumonia vs pulm edema. repeat blood cx's taken - they have remained negative (08/04 and 08/07 cultures all sterile). biofire with COVID - all negative. legionella urine ag negative. zosyn was d/c - and within 8 hours his fevers broke completely. given no new infectious etiology found suspect he may have had "DRUG FEVER" from zosyn. added this to allergy list. A vasculitis work-up was sent and is pending. However, vasculitis not suspected - it would not have resolved on its own (he would have needed steroid therapy). no fever now in over 72 hours 08/10/20 cxr was essentially normal. this argues that he had pneumonia even despite the CT chest findings recently. the rapid resolution of infiltrates is more c/w pulmonary edema. 5-day course of doxy (precautionary measure) complerted - will d/c tonight. cont daily IV rocephin for left leg/foot. (5) Drug-induced fever: 2nd zosyn (highly suspected) see above (6) Acute kidney injury: Baseline Creatinine about 2.5 to 2.8. 6.3 at the peak IMPROVING BJ Creatinine now 3.8 today and making adequate urine without assistance of diuretics Likely ATN from septicemia/bacteremia BMP in am. Nephro consult appreciated. No indication for HD fortunately. (7) Acute respiratory failure with hypoxia and hypercapnia: 2nd to pulmonary edema. RESOLVED. Although CT on 08/07 suggested possible pneumonia, his cxr yesterday was essentially normal making pneumonia unlikely (only pulm edema would have improved that quickly). cont BIPAP at HS. (8) Acute pulmonary edema: Improved with bumex infusion which ultimately was stopped. Acute pulm edema 2nd to acute renal failure in the setting of CKD. Continues to auto-diurese. Respiratory status has improved / returned to baseline w/ diuresis. off o2. BMP am. (9) SVT (supraventricular tachycardia): Prior to transfer to ICU he was having sinus tach interspersed with either atrial tachycardia or even a 2:1 atrial flutter. suspect former but uncertain. He had not responded to IV or PO beta blockers. He was placed on cardizem infusion with decent response to this. No atrial rhythms since that time. Cardizem has been d/c for several days. Echo noted. TSH wnl. cont coreg. consider outpatient event monitor to exclude PAF / P. aflutter to be complete. (10) Severe obstructive sleep apnea: Was scheduled to get sleep study in the near-future as outpatient. Cont HS BIPAP while here if he can tolerate such. (11) Hypomagnesemia: repleted and now normal (12) Chronic kidney disease, stage IV (severe): baseline Cr 2.5 to 2.8. now with BJ/ARF. Cr down to 3.8. see above. (13) HTN (hypertension): Improved with increase in coreg to 25mg BID Cont amlodipine Flomax will help with BP control as well Holding CARMEN due to ARF/BJ. (14) Uncontrolled type 2 diabetes mellitus: Hold semaglutide. a1c >8%. uncontrolled but improved with increase in lantus to 50 units BID and novolog adjustments (15) Mixed hyperlipidemia: can resume lipitor at discharge (16) BPH loc w urin obs/LUTS: no issues continue tamsulosin preston out (17) Diabetic nephropathy associated with type 2 diabetes mellitus: baseline CKD stage 4 (18) Elevated troponin: Likely myocardial demand ischemia in setting of bacteremia no ACS while here (19) Morbid obesity with BMI of 45.0-49.9, adult: BMI [address] Schwartz -- [facility] records management assistant (20) Multiorgan failure: pulmonary status now normal cardiac status stable renal status recovering ID status MUCH improved (21) DM neuropathy, painful: resume renally adjusted lyrica at 50mg BID (22) Pain of left midfoot: although uric acid level was very high at 11.5 his pain has improved without NSAIDs or steroids thus, pain likely due to his infection rather than gout cont to monitor (23) DVT prophylaxis: SC heparin Total Time Total Time Spent Total Time Spent (In Minutes): 32 Total Time Includes: Examination of the Patient, Discharge Planning and Medication Reconciliation Discharge Plan Discharge Items Patient Disposition: Home - Home Health Services Reason For Visit: DIABETIC FOOT INFECTION Discharge Diagnosis: Diabetic foot infection Activity: Resume your previous activity Non-emergency contact: Primary Care Provider Call non-emergency contact if: you have any medication questions Follow-up/Referrals: Fannie Fonseca MD [Physician] - Jameel Schwartz MD [Physician] - 08/16/20 2:00 pm (First available appt dx - morbid obesity ) Lanny Guerrier [Primary Care Provider] - 08/22/20 10:30 am (Your appointment will be with DIONE Hood) Eleuterio Puri DPM, MS [Physician] - 08/24/20 3:00 pm Diet: Carb Consistent or DM2 Addtl Attending Provider Instructions: Will require outpatient follow up with Dr. Fonseca within 1-2 weeks of hospital discharge. Last diose of antibiotics on 08/18/20. This will treat for bacteremia and the extensive Left Lower Extremity infection. F/U with PCP in 1-2 weeks. F/U with Dr. Puri in 2-4 weeks. You will get weekly blood work. Pending Studies at Discharge: No Stand-Alone Forms: [facility] [place] [employer], Smoking Cessation Medications and DC Order Prescriptions: New carvedilol 25 mg Tablet 25 mg PO BID Qty: 60 RF: 0 calcium acetate(phosphat bind) 667 mg Capsule 667 mg PO TIDM Qty: 90 RF: 0 acetaminophen [Tylenol 8 Hour] 650 mg tablet extended release 650 mg PO Q8H PRN (Reason: fever or pain) Qty: 60 RF: 0 ceftriaxone 2 gram recon soln 2 g IV DAILY Qty: 5 RF: 0 Continued alprazolam 1 mg tablet 1 mg PO DAILY PRN (Reason: Anxiety) RF: 0 bupropion HCl [Wellbutrin SR] 150 mg tablet sustained-release 12 hr 150 mg PO QAM RF: 0 Basaglar KwikPen U-100 Insulin 100 unit/mL (3 mL) insulin pen 54 unit SQ BID RF: 0 Ozempic 0.25 mg or 0.5 mg(2 mg/1.5 mL) pen injector 0.5 mg subcut .weekly RF: 0 pregabalin [Lyrica] 100 mg capsule 100 mg PO BID RF: 0 atorvastatin 80 mg tablet 80 mg PO QAM RF: 0 amlodipine 10 mg tablet 10 mg PO QAM RF: 0 multivitamin Tablet 1 tab PO QAM RF: 0 amitriptyline 25 mg tablet 25 mg PO HS RF: 0 insulin aspart U-100 [Novolog Flexpen U-100 Insulin] 100 unit/mL (3 mL) insulin pen 0 unit subcut TIDM RF: 0 icosapent ethyl [Vascepa] 1 gram capsule 2 g PO BID RF: 0 tamsulosin 0.4 mg Capsule 0.4 mg PO HS Qty: 30 RF: 0 Discontinued lisinopril 40 mg tablet 40 mg PO HS RF: 0 carvedilol 6.25 mg tablet 12.5 mg PO BID RF: 0 ibuprofen [Advil] 200 mg Tablet 800 mg PO TID PRN (Reason: Pain) RF: 0 Discharge Orders: Discharge Order (Routine); Ordered 08/13/20 Ordered By: Eloy Christianson Admission Data Admit Date/Time: 08/03/20 23:34 Attending Provider: Eloy Christianson Admit Provider: Otto Butts Primary Care Provider: Lanny Guerrier Other Providers: Otto Butts ; Eleuterio Puri ; Abelino Barnes ; Lizette Elena ; Steven Hicks ; Sai Henriquez ; Fannie Fonseca ; Dio Balbuena ; Rafael Le ; Dulce Vega ; Boris Elena I. ; Demond Tee II ; Amparo Navas ; Jamison Sarmiento ; [facility] Other Interventions: Discharge Summary Assessment (RN) Last Done: 08/13/20 14:25 Coding Level of Care Code D/C Day Management >30 mins Diagnoses Bacteremia due to Streptococcus R78.81; B95.5 Diabetic foot ulcer associated with type 2 diabetes mellitus E11.621; L97.529 Diabetic foot ulcer location: toe Laterality: left Non-pressure ulcer stage: unspecified non-pressure ulcer stage Cellulitis of left lower extremity L03.116 Fever R50.2 Fever type: drug-induced Drug-induced fever R50.2 Acute kidney injury N17.9 Acute respiratory failure with hypoxia and hypercapnia J96.01; J96.02 Acute pulmonary edema J81.0 SVT (supraventricular tachycardia) I47.1 Severe obstructive sleep apnea G47.33 Hypomagnesemia E83.42 Chronic kidney disease, stage IV (severe) N18.4 HTN (hypertension) I10 Hypertension type: essential hypertension Uncontrolled type 2 diabetes mellitus E11.65 Glycemic state: with hyperglycemia Mixed hyperlipidemia E78.2 BPH loc w urin obs/LUTS N40.1 Diabetic nephropathy associated with type 2 diabetes mellitus E11.21 Elevated troponin R77.8 Morbid obesity with BMI of 45.0-49.9, adult E66.01; Z68.42 Multiorgan failure DM neuropathy, painful E11.40 Pain of left midfoot M79.672 DVT prophylaxis Z29.9
== END 2020-08-13 15:30 | disposition home health service (06) | DRG 853 ==
LOC: ED 20:26 → 2S 23:34 → SUATTDRO 23:34 → 2S 08-04 04:01 → 1E 08-04 18:54 → 2E 08-08 18:53

== ENCOUNTER 2020-09-05 14:39 | Inpatient (IN) ==
[2020-09-05] MEDS ORDERED: CEFEPIME 2,000 MG/20 ML VIAL IV STA (14:57)
[2020-09-05] MEDS ORDERED: ACETAMINOPHEN 1000 MG/100 ML IV IV STA (14:57)
[2020-09-05] MEDS ORDERED: SODIUM CHLORIDE 0.9% 1000ML 1,000 ML IV ONE ×2 (14:57→15:19)
[2020-09-05] MEDS ORDERED: ONDANSETRON INJ 2 MG/ML 2 ML VIAL IV STA (15:01)
[2020-09-05] MEDS ORDERED: MoRPHine SULFATE 4 MG/ML 1 ML CARP\\VIAL IV STA (15:01)
--- NOTE | 2020-09-05 15:01 | Emergency Department Note ---
Impression & Plan Sepsis, Tachycardia, Hypomagnesemia, Cellulitis, Leukocytosis ED Provider Note NAME: MAU LEMONS AGE: 40 SEX: M : 1980 ARRIVES VIA: Walk-In INFORMANT: [Patient][] ED PROVIDER(S): [Isaiah Dillon MD] CHIEF COMPLAINT: Fever HISTORY OF PRESENT ILLNESS: The patient is a 40-year-old male who presents to the ER with several days of some nausea and vomiting and fatigue. Today, he developed some chills and a fever. He has noticed some pain in the left lower leg and has noticed some redness and warmth in the area. The pain is a 6 on a scale of 1 out of 10. The patient feels thirsty. He denies being short of breath although, his felt he looked winded. He denies any chest pain or abdominal pain. No cough. No diarrhea or urinary complaints. The patient states he is diabetic, he has been septic before, he presents today because of his symptoms and his past history. The patient is vaccinated against COVID-19, no recent Covid exposures. REVIEW OF SYSTEMS: See HPI for pertinent positives and negatives. A total of ten systems were reviewed and were otherwise negative. PMHx/PSHx: See Below SOCIAL HISTORY: See Below. PHYSICAL EXAM: GENERAL: Patient is in mild distress. HEENT: No acute trauma, normocephalic atraumatic, mucous membranes dry, no nasal congestion, no scleral icterus. NECK: No stridor, no adenopathy, no meningismus, trachea is midline. LUNGS: Clear to auscultation bilaterally, no wheeze, no rhonchi, breath sounds equal. HEART: Tachycardic, regular rhythm, no murmurs. ABDOMEN: Soft, nontender, bowel sounds positive, no hernias, no peritonitis. EXTREMITIES: No cyanosis. There is some mild bilateral pedal edema. The left lower extremity in the area of the distal tib-fib is erythematous and warm co nsistent with a cellulitis, there is no drainage. NEUROLOGIC: Oriented x 3, no acute motor or sensory deficits, no focal weakness. SKIN: No rash, no jaundice, no diaphoresis. DIFFERENTIAL DIAGNOSIS: Sepsis, UTI, pneumonia, metabolic abnormality, electrolyte abnormalities, car diac sources, SVT, A. fib or a-flutter, cellulitis, UTI, bacteremia, intracerebral event, toxicologic etiology, neurologic event, as well as other pathologies. EMERGENCY DEPARTMENT COURSE/PROCEDURES: ECG: Indication was possible sepsis. The ECG shows possible SVT versus a sinus tachycardia. The rate is 154. There is T wave inversion in the lateral leads. There is no ST elevation. No PVCs. The QTc is 541. Compared to an ECG from 04 Aug 2020, the rate has increased. The T wave changes are similar. Repeat ECG: Indication was tachycardia. The ECG shows a sinus tachycardia with a rate of 132. There are some inverted T waves in the lateral leads. There is no worrisome ST elevation. QTc is 444. Compared to the ECG from earlier, the rate has decreased. Continuous Cardiac Monitoring: An order was placed for continuous cardiac monitoring. The monitor shows a rate of 153 with sinus tachycardia. Critical Care Note: I have personally spent 62 minutes of critical care time in the direct management of this patient. This includes bedside care, interpretation of diagnostic studies, and testing, discussion with consultants, patient, and family members, and other required patient management activities. This 62 minutes is in excess of all separately billable procedures. MEDICAL DECISION MAKING: There is a significant leukocytosis at around 25,000, this is consistent with infection. No concerning anemia. There is a normal platelet count. No coagulopathy. There was evidence for acute kidney injury with a creatinine of 3.90. This is above the patient's typical creatinine values. Lactic acid level was quite elevated at over 5 consistent with sepsis. There was no concerning liver enzyme elevation. Magnesium was low at 1.4. Covid test returned negative. Chest x-ray did not show CHF or pneumonia. On exam, the patient was tachycardic and appeared dehydrated. He was febrile. ECG showed what appears to be a sinus tachycardia, there were some inverted T waves but these changes had been documented before. There was no ST elevation. Cardiac enzyme testing x1 was not consistent with acute cardiac injury. The patient received 2.5 L of IV saline. Given the patients BMI >30, IBW was used to calculate the 30ml/kg fluid bolus. Patient received IV magnesium, he was given IV cefepime and IV daptomycin. He received IV morphine for his left leg pain, he was given IV Zofran. Patient received IV Tylenol for his fever. The patient's heart rate has improved, he is currently resting and seems comfortable. He is in need of a hospital stay. I did speak with the patient and his significant other. I spoke with skilled nursing case manager. The on-call hospitalist was consulted. In short, the patient appears septic from a left lower extremity cellulitis. Past Med/Surg History Medical History Abnormal CT scan, chest Anemia due to chronic kidney disease Chronic diarrhea reason for colonoscopy Chronic kidney disease, stage 4 (severe) Diabetic nephropathy associated with type 2 diabetes mellitus DM neuropathy, painful DM retinopathy Habitual snoring never had a sleep study test done Hidradenitis suppurativa HTN (hypertension) Hyperlipidemia Kidney stones Morbid obesity with BMI of 45.0-49.9, adult Obesity Proteinuria Uncontrolled type 2 diabetes mellitus Surgical History History of cardiac cath 2014 ?? 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 History of eye surgery left eye multiple before eye removal History of tooth extraction History of wisdom tooth extraction Status post epidural steroid injection Family History Mother No problems noted. 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 Beliefs That Will Affect Care: None marital status: Current Living Situation: Spouse Current Living Situation Comment: Lives with spouse current occupational status: employed Feels Safe at Home: Yes Safety Concerns: Feels Safe At This Time Assistive Devices: Glasses Assistive Devices Comment: prosthetic left eye Allergies Allergies Allergy/AdvReac Type Severity Reaction Status Date / Time piperacillin [From Zosyn] Allergy Severe Fever Verified 09/05/20 15:50 tazobactam [From Zosyn] Allergy Severe Fever Verified 09/05/20 15:50 amoxicillin AdvReac Mild Gastrointestinal Verified 09/05/20 15:50 Upset Home Meds Home Medications Medication Instructions Recorded Confirmed amlodipine 10 mg PO QAM 04/08/19 09/05/20 atorvastatin 80 mg PO QAM 04/08/19 09/05/20 alprazolam 1 mg tablet 1 mg PO DAILY PRN 10/14/19 09/05/20 bupropion HCl 150 mg tablet,12 hr 150 mg PO QAM 10/14/19 09/05/20 sustained-release pregabalin 100 mg capsule 100 mg PO BID 12/01/19 09/05/20 multivitamin 1 tab PO QAM 01/04/20 09/05/20 amitriptyline 25 mg PO HS 01/14/20 09/05/20 insulin aspart U-100 100 unit/mL 0 unit SUBCUT TIDM ml 03/21/20 09/05/20 (3 mL) subcutaneous pen icosapent ethyl [Vascepa] 2 g PO BID 04/13/20 09/05/20 insulin glargine 100 unit/mL (3 54 unit SQ BID box 07/31/20 09/05/20 mL) subcutaneous pen semaglutide 0.5 mg SUBCUT .weekly ml 07/31/20 09/05/20 Previous Rx's Medication Instructions Recorded tamsulosin 0.4 mg PO HS #30 cap 04/26/20 acetaminophen [Tylenol 8 Hour] 650 mg PO Q8H PRN #60 tab 08/13/20 calcium acetate(phosphat bind) 667 mg PO TIDM #90 cap 08/13/20 carvedilol 25 mg PO BID #60 tab 08/13/20 ceftriaxone 2 g IV DAILY #5 ea 08/13/20 lisinopril 20 mg tablet 20 mg PO DAILY #90 tab 08/24/20 Results & Data (ED) Vital Signs Vital Signs - 24 hr 09/05/20 14:42 09/05/20 14:51 09/05/20 14:52 Temperature 38 C H 38.9 C H Temperature Source Temporal Artery Scan Oral Pulse Rate 160 H 155 H Pulse Rate [Left Finger] 153 H Pulse Rate from SpO2 Sensor 155 H Pulse Rhythm [Left Finger] Pulse Strength [Left Finger] Respiratory Rate 18 20 22 Respiratory Effort / Characteristics Non-Labored Non-Labored Respiratory Depth Normal Normal Respiratory Pattern Blood Pressure 145/87 H 184/98 H Blood Pressure [Right Arm] 184/98 H Blood Pressure Mean 106 126 Blood Pressure Mean [Right Arm] 126 Blood Pressure Position [Right Arm] Sitting Pulse Oximetry 95 95 Oxygen Delivery Method Room Air Room Air Sepsis Recent Fever Within 48 Hours Yes Sepsis New/Unexplained Change in Mental Status No Sepsis Action Taken by Nursing Physician Notified 09/05/20 15:00 09/05/20 15:05 09/05/20 15:11 Temperature Temperature Source Pulse Rate 150 H Pulse Rate [Left Finger] 145 H Pulse Rate from SpO2 Sensor Pulse Rhythm [Left Finger] Regular Pulse Strength [Left Finger] Respiratory Rate 20 26 H 24 Respiratory Effort / Characteristics Non-Labored Non-Labored Respiratory Depth Normal Normal Respiratory Pattern Regular Blood Pressure Blood Pressure [Right Arm] Blood Pressure Mean Blood Pressure Mean [Right Arm] Blood Pressure Position [Right Arm] Lying Pulse Oximetry 96 97 Oxygen Delivery Method Room Air Room Air Sepsis Recent Fever Within 48 Hours Sepsis New/Unexplained Change in Mental Status Sepsis Action Taken by Nursing 09/05/20 15:12 09/05/20 15:13 09/05/20 15:15 Temperature Temperature Source Pulse Rate 149 H 149 H 147 H Pulse Rate [Left Finger] Pulse Rate from SpO2 Sensor 148 H 150 H 148 H Pulse Rhythm [Left Finger] Pulse Strength [Left Finger] Respiratory Rate 28 H 14 18 Respiratory Effort / Characteristics Respiratory Depth Respiratory Pattern Blood Pressure 210/115 H 155/98 H 166/106 H Blood Pressure [Right Arm] Blood Pressure Mean 146 117 126 Blood Pressure Mean [Right Arm] Blood Pressure Position [Right Arm] Pulse Oximetry 96 98 96 Oxygen Delivery Method Sepsis Recent Fever Within 48 Hours Sepsis New/Unexplained Change in Mental Status Sepsis Action Taken by Nursing 09/05/20 15:30 09/05/20 15:31 09/05/20 15:44 Temperature Temperature Source Pulse Rate 144 H 147 H 145 H Pulse Rate [Left Finger] Pulse Rate from SpO2 Sensor 144 H 147 H 146 H Pulse Rhythm [Left Finger] Pulse Strength [Left Finger] Respiratory Rate 20 27 H 28 H Respiratory Effort / Characteristics Non-Labored Respiratory Depth Respiratory Pattern Blood Pressure 202/96 H 163/84 H Blood Pressure [Right Arm] Blood Pressure Mean 131 110 Blood Pressure Mean [Right Arm] Blood Pressure Position [Right Arm] Pulse Oximetry 96 93 91 Oxygen Delivery Method Room Air Room Air Sepsis Recent Fever Within 48 Hours Sepsis New/Unexplained Change in Mental Status Sepsis Action Taken by Nursing 09/05/20 15:45 09/05/20 15:47 09/05/20 16:00 Temperature Temperature Source Pulse Rate 145 H 144 H 140 H Pulse Rate [Left Finger] Pulse Rate from SpO2 Sensor 145 H 143 H 140 H Pulse Rhythm [Left Finger] Pulse Strength [Left Finger] Respiratory Rate 30 H 22 20 Respiratory Effort / Characteristics Non-Labored Respiratory Depth Respiratory Pattern Blood Pressure 158/86 H 113/75 Blood Pressure [Right Arm] Blood Pressure Mean 110 87 Blood Pressure Mean [Right Arm] Blood Pressure Position [Right Arm] Pulse Oximetry 90 92 97 Oxygen Delivery Method Sepsis Recent Fever Within 48 Hours Sepsis New/Unexplained Change in Mental Status Sepsis Action Taken by Nursing 09/05/20 16:15 09/05/20 16:30 09/05/20 16:45 Temperature Temperature Source Pulse Rate 138 H 131 H 132 H Pulse Rate [Left Finger] Pulse Rate from SpO2 Sensor 139 H 131 H 133 H Pulse Rhythm [Left Finger] Pulse Strength [Left Finger] Respiratory Rate 12 21 16 Respiratory Effort / Characteristics Non-Labored Respiratory Depth Respiratory Pattern Blood Pressure 125/78 146/88 H 128/92 Blood Pressure [Right Arm] Blood Pressure Mean 93 107 104 Blood Pressure Mean [Right Arm] Blood Pressure Position [Right Arm] Pulse Oximetry 96 96 97 Oxygen Delivery Method Room Air Sepsis Recent Fever Within 48 Hours Sepsis New/Unexplained Change in Mental Status Sepsis Action Taken by Nursing 09/05/20 17:00 09/05/20 17:02 09/05/20 17:03 Temperature 37.9 C H Temperature Source Oral Pulse Rate 130 H 127 H Pulse Rate [Left Finger] 126 H Pulse Rate from SpO2 Sensor 131 H 127 H Pulse Rhythm [Left Finger] Regular Pulse Strength [Left Finger] Normal Respiratory Rate 25 H 19 19 Respiratory Effort / Characteristics Non-Labored Non-Labored Respiratory Depth Normal Respiratory Pattern Blood Pressure 98/70 L 122/81 Blood Pressure [Right Arm] Blood Pressure Mean 79 94 Blood Pressure Mean [Right Arm] Blood Pressure Position [Right Arm] Pulse Oximetry 97 97 97 Oxygen Delivery Method Room Air Room Air Sepsis Recent Fever Within 48 Hours Sepsis New/Unexplained Change in Mental Status Sepsis Action Taken by Nursing 09/05/20 17:15 09/05/20 17:30 09/05/20 17:45 Temperature Temperature Source Pulse Rate 129 H 128 H 132 H Pulse Rate [Left Finger] Pulse Rate from SpO2 Sensor 129 H 128 H 133 H Pulse Rhythm [Left Finger] Pulse Strength [Left Finger] Respiratory Rate 29 H 31 H 15 Respiratory Effort / Characteristics Non-Labored Respiratory Depth Respiratory Pattern Blood Pressure 135/79 Blood Pressure [Right Arm] Blood Pressure Mean 97 Blood Pressure Mean [Right Arm] Blood Pressure Position [Right Arm] Pulse Oximetry 96 97 96 Oxygen Delivery Method Room Air Sepsis Recent Fever Within 48 Hours Sepsis New/Unexplained Change in Mental Status Sepsis Action Taken by Jail Medications Current Medication List: was personally reviewed by me Laboratory Data Attestation: I reviewed the patient's lab results. Result diagrams: 09/05/20 15:00 09/05/20 15:00 Lab Results 09/05/20 09/05/20 09/05/20 Range/Units 15:00 15:00 15:00 WBC 24.88 H (4.8-10.8) K/uL RBC 4.90 (4.7-6.1) M/uL Hgb 13.9 L (14.0-18.0) g/dL Hct 40.8 L (42-52) % MCV 83.3 (80-100) fL MCH 28.4 (25-34) pg MCHC 34.1 (32-36) g/dL RDW Std Deviation 42.1 (36.4-46.3) fL RDW Coeff of Nicky 14.0 (11.5-14.5) % Plt Count 342 (130-400) K/uL MPV 11.2 H (7.4-10.4) fL Immature Gran % (Auto) 0.7 % Neut % (Auto) 92.6 % Lymph % (Auto) 3.0 % [place] % (Auto) 3.5 % Eos % (Auto) 0.1 % Baso % (Auto) 0.1 % Neut # (Auto) 23.03 H (1.4-6.5) K/uL Lymph # (Auto) 0.75 L (1.2-3.4) K/uL [place] # (Auto) 0.88 H (0.11-0.59) K/uL Eos # (Auto) 0.02 (0-0.5) K/uL Baso # (Auto) 0.03 (0-0.2) K/uL Immature Gran # (Auto) 0.17 H (0.00-0.02) K/uL PT (9.0-12.0) Seconds INR (0.9-1.1) APTT (21.0-31.0) Seconds PTT Ratio Sodium 136 (136-145) mmol/L Potassium 4.3 (3.5-5.1) mmol/L Chloride 102 (98-107) mmol/L Carbon Dioxide 22 (21-32) mmol/L Anion Gap 12.0 H (3-11) BUN 33 H (7-18) mg/dl Creatinine 3.90 H (0.6-1.4) mg/dl Est Cr Clr Drug Dosing 38.0 ml/min Est GFR ( Amer) 21.0 ml/min Est GFR (Non-Af Amer) 18.1 ml/min BUN/Creatinine Ratio 8.3 L (10-20) Glucose 265 H (70-99) mg/dl Lactate (0.4-2.0) mmol/L Calcium 9.1 (8.5-10.1) mg/dl Magnesium 1.4 L (1.8-2.4) mg/dl Total Bilirubin 0.4 (0.2-1) mg/dl AST 20 (15-37) U/L ALT 18 (12-78) U/L Alkaline Phosphatase 112 (45-117) U/L Troponin I 0.034 (0-0.045) ng/ml C-Reactive Protein (0-0.29) mg/dl Total Protein 8.6 H (6.4-8.2) gm/dl Albumin 2.6 L (3.4-5.0) gm/dl Globulin 6.0 H (2.5-4.0) gm/dl Albumin/Globulin Ratio 0.4 L (0.9-2) Procalcitonin 0.35 (0-0.5) ng/ml COVID-19 Eval Order SARS-CoV-2 (PCR) (Negative) 09/05/20 09/05/20 09/05/20 Range/Units 15:00 15:00 15:00 WBC (4.8-10.8) K/uL RBC (4.7-6.1) M/uL Hgb (14.0-18.0) g/dL Hct (42-52) % MCV (80-100) fL MCH (25-34) pg MCHC (32-36) g/dL RDW Std Deviation (36.4-46.3) fL RDW Coeff of Nicky (11.5-14.5) % Plt Count (130-400) K/uL MPV (7.4-10.4) fL Immature Gran % (Auto) % Neut % (Auto) % Lymph % (Auto) % [place] % (Auto) % Eos % (Auto) % Baso % (Auto) % Neut # (Auto) (1.4-6.5) K/uL Lymph # (Auto) (1.2-3.4) K/uL [place] # (Auto) (0.11-0.59) K/uL Eos # (Auto) (0-0.5) K/uL Baso # (Auto) (0-0.2) K/uL Immature Gran # (Auto) (0.00-0.02) K/uL PT 10.3 (9.0-12.0) Seconds INR 1.0 (0.9-1.1) APTT 25.1 (21.0-31.0) Seconds PTT Ratio 1.0 Sodium (136-145) mmol/L Potassium (3.5-5.1) mmol/L Chloride (98-107) mmol/L Carbon Dioxide (21-32) mmol/L Anion Gap (3-11) BUN (7-18) mg/dl Creatinine (0.6-1.4) mg/dl Est Cr Clr Drug Dosing ml/min Est GFR ( Amer) ml/min Est GFR (Non-Af Amer) ml/min BUN/Creatinine Ratio (10-20) Glucose (70-99) mg/dl Lactate 5.7 H* (0.4-2.0) mmol/L Calcium (8.5-10.1) mg/dl Magnesium (1.8-2.4) mg/dl Total Bilirubin (0.2-1) mg/dl AST (15-37) U/L ALT (12-78) U/L Alkaline Phosphatase (45-117) U/L Troponin I (0-0.045) ng/ml C-Reactive Protein 2.38 H (0-0.29) mg/dl Total Protein (6.4-8.2) gm/dl Albumin (3.4-5.0) gm/dl Globulin (2.5-4.0) gm/dl Albumin/Globulin Ratio (0.9-2) Procalcitonin (0-0.5) ng/ml COVID-19 Eval Order SARS-CoV-2 (PCR) (Negative) 09/05/20 09/05/20 09/05/20 Range/Units 15:45 15:45 17:32 WBC (4.8-10.8) K/uL RBC (4.7-6.1) M/uL Hgb (14.0-18.0) g/dL Hct (42-52) % MCV (80-100) fL MCH (25-34) pg MCHC (32-36) g/dL RDW Std Deviation (36.4-46.3) fL RDW Coeff of Nicky (11.5-14.5) % Plt Count (130-400) K/uL MPV (7.4-10.4) fL Immature Gran % (Auto) % Neut % (Auto) % Lymph % (Auto) % [place] % (Auto) % Eos % (Auto) % Baso % (Auto) % Neut # (Auto) (1.4-6.5) K/uL Lymph # (Auto) (1.2-3.4) K/uL [place] # (Auto) (0.11-0.59) K/uL Eos # (Auto) (0-0.5) K/uL Baso # (Auto) (0-0.2) K/uL Immature Gran # (Auto) (0.00-0.02) K/uL PT (9.0-12.0) Seconds INR (0.9-1.1) APTT (21.0-31.0) Seconds PTT Ratio Sodium (136-145) mmol/L Potassium (3.5-5.1) mmol/L Chloride (98-107) mmol/L Carbon Dioxide (21-32) mmol/L Anion Gap (3-11) BUN (7-18) mg/dl Creatinine (0.6-1.4) mg/dl Est Cr Clr Drug Dosing ml/min Est GFR ( Amer) ml/min Est GFR (Non-Af Amer) ml/min BUN/Creatinine Ratio (10-20) Glucose (70-99) mg/dl Lactate 3.9 H* (0.4-2.0) mmol/L Calcium (8.5-10.1) mg/dl Magnesium (1.8-2.4) mg/dl Total Bilirubin (0.2-1) mg/dl AST (15-37) U/L ALT (12-78) U/L Alkaline Phosphatase (45-117) U/L Troponin I (0-0.045) ng/ml C-Reactive Protein (0-0.29) mg/dl Total Protein (6.4-8.2) gm/dl Albumin (3.4-5.0) gm/dl Globulin (2.5-4.0) gm/dl Albumin/Globulin Ratio (0.9-2) Procalcitonin (0-0.5) ng/ml COVID-19 Eval Order Covid19 at [facility] SARS-CoV-2 (PCR) NEGATIVE (Negative) Administered Medications Acetaminophen (Acetaminophen 325 Mg Tab) 650 mg PO Q4H PRN PRN Reason: Pain or Fever Stop: 10/05/20 20:12 Last Admin: 09/05/20 21:15 Dose: 650 mg Documented by: [id number] Amitriptyline HCl (Amitriptyline Hcl 25 Mg Tab) 25 mg PO HS MELISSA Stop: 10/05/20 20:59 Last Admin: 09/05/20 21:16 Dose: 25 mg Documented by: [id number] Carvedilol (Carvedilol 25 Mg Tab) 25 mg PO BID MELISSA Stop: 10/05/20 20:59 Last Admin: 09/05/20 21:15 Dose: 25 mg Documented by: [id number] Heparin Sodium (Porcine) (Heparin Sod 5,000 Unit/0.5 Ml Vial) 5,000 units SQ Q8 MELISSA Stop: 10/05/20 21:59 Last Admin: 09/05/20 21:42 Dose: 5,000 units Documented by: [id number] Magnesium Sulfate/Dextrose (Magnesium Sulfate / D5w) 1 gm in 100 mls @ 50 mls/hr IV Q2H MELISSA Stop: 09/05/20 23:13 Last Admin: 09/05/20 21:41 Dose: 50 mls/hr Documented by: [id number] Admin: 09/05/20 21:07 Dose: Not Given Documented by: [id number] Admin: 09/05/20 21:04 Dose: Not Given Documented by: [id number] Parenteral Electrolytes (Normosol-R) 1,000 mls @ 125 mls/hr IV .Q8H ONE Stop: 09/06/20 02:11 Last Admin: 09/05/20 20:24 Dose: 125 mls/hr Documented by: [id number] Insulin Aspart (Insulin Aspart 100 Units/Ml 3 Ml Pen) 0 units SC ACHS MELISSA Stop: 10/05/20 20:59 Last Admin: 09/05/20 21:17 Dose: 3 units Documented by: [id number] Cosigned by: [id number] Insulin Glargine (Insulin Glargine Solostar 100 Units/Ml 3 Ml Pen) 0 units SC HS MELISSA; Protocol Stop: 10/05/20 20:59 Last Admin: 09/05/20 21:18 Dose: 10 units Documented by: [id number] Cosigned by: [id number] Tamsulosin HCl (Tamsulosin Hcl 0.4 Mg Cap) 0.4 mg PO HS MELISSA Stop: 10/05/20 20:59 Last Admin: 09/05/20 21:15 Dose: 0.4 mg Documented by: [id number] Discontinued Medications Acetaminophen (Acetaminophen 1000 Mg/100 Ml Iv) 1,000 mg IV NOW STA Stop: 09/05/20 14:58 Last Admin: 09/05/20 15:18 Dose: 1,000 mg Documented by: [id number] Cefepime HCl (Maxipime) 2,000 mg in 20 mls @ 5 mls/min IV NOW STA; Protocol Stop: 09/05/20 15:00 Last Admin: 09/05/20 15:19 Dose: 5 mls/min Documented by: [id number] Sodium Chloride (Nss 1000ml) 1,000 mls @ 999 mls/hr IV .Q1H1M ONE Stop: 09/05/20 15:57 Last Infusion: 09/05/20 16:14 Dose: 0 mls/hr Documented by: [id number] Admin: 09/05/20 15:20 Dose: 999 mls/hr Documented by: [id number] Daptomycin 650 mg/ Syringe 13 mls @ 6.5 mls/min IV NOW ONE; Protocol Stop: 09/05/20 15:19 Last Admin: 09/05/20 17:00 Dose: 6.5 mls/min Documented by: [id number] Sodium Chloride (Nss 1000ml) 1,000 mls @ 999 mls/hr IV .Q1H1M ONE Stop: 09/05/20 16:19 Last Infusion: 09/05/20 16:14 Dose: 0 mls/hr Documented by: [id number] Admin: 09/05/20 15:42 Dose: 999 mls/hr Documented by: [id number] Sodium Chloride (Nss) 500 mls @ 999 mls/hr IV .Q31M ONE Stop: 09/05/20 16:09 Last Infusion: 09/05/20 19:41 Dose: 0 mls/hr Documented by: [id number] Admin: 09/05/20 15:43 Dose: 999 mls/hr Documented by: [id number] Magnesium Sulfate/Dextrose (Magnesium Sulfate / D5w) 1 gm in 100 mls @ 100 mls/hr IV NOW STA Stop: 09/05/20 16:41 Last Infusion: 09/05/20 19:41 Dose: 0 mls/hr Documented by: [id number] Admin: 09/05/20 16:59 Dose: 100 mls/hr Documented by: [id number] Magnesium Sulfate/Dextrose (Magnesium Sulfate / D5w) 1 gm in 100 mls @ 100 mls/hr IV NOW STA Stop: 09/05/20 16:41 Last Infusion: 09/05/20 21:07 Dose: 0 mls/hr Documented by: [id number] Admin: 09/05/20 19:11 Dose: 100 mls/hr Documented by: [id number] Lactated Ringer's (Lr) 500 mls @ 999 mls/hr IV .Q31M ONE Stop: 09/05/20 17:57 Last Admin: 09/05/20 21:04 Dose: Not Given Documented by: [id number] Morphine Sulfate (Morphine Sulfate 4 Mg/Ml 1 Ml Carp\Vial) 4 mg IV NOW STA Stop: 09/05/20 15:02 Last Admin: 09/05/20 15:18 Dose: 4 mg Documented by: [id number] Ondansetron HCl (Ondansetron Inj 2 Mg/Ml 2 Ml Vial) 4 mg IV NOW STA Stop: 09/05/20 15:02 Last Admin: 09/05/20 15:18 Dose: 4 mg Documented by: [id number] Pregabalin (Pregabalin 100 Mg Cap) 100 mg PO BID MELISSA Stop: 10/05/20 20:59 Last Admin: 09/05/20 21:15 Dose: 100 mg Documented by: [id number] Imaging Data Radiologist's Impression: Chest X-Ray 09/05/20 14:59 XR chest 1V portable HISTORY: SEPSIS COMPARISON: Chest 08/13/2020. FINDINGS: No pneumothorax or no pleural effusions. The cardiac silhouette remains mildly enlarged. No focal lung consolidations to suggest pneumonia. No evidence for pulmonary edema. IMPRESSION: Stable mild cardiomegaly. Otherwise, no acute process within the chest. ACT 112: Negative or not required by law. Electronically signed by: Ken Robbins M.D. 09/05/2020 3:55 PM Tibia/Fibula X-Ray 09/05/20 16:53 LEFT TIBIA AND FIBULA 2 VIEWS CLINICAL HISTORY: Cellulitis. FINDINGS: AP and lateral views of the left tibia and fibula are correlated with CT of the left tibia and fibula dated 08/04/2020. The skeletal structures are osteopenic. There is no radiographic evidence of left tibial or fibular fracture. There is no bony erosion or periostitis. The knee and ankle joints are grossly maintained. Soft tissue edema is present throughout the left lower extremity. Advanced atherosclerotic calcification is noted in the regional a rteries. No soft tissue gas is seen. Numerous soft tissue calcifications are noted. There is a large dorsal calcaneal enthesophyte. IMPRESSION: Soft tissue edema with no acute bony abnormality identified. Electronically signed by: Isaiah Horton M.D. 09/05/2020 9:06 PM Discharge Plan Visit Data Chief Complaint: Fever Stated Complaint: HIGH FEVER,NAUSEA,HAS INFECTIONS A LOT ED Provider: Isaiah Dillon Discharge Problem: Sepsis, Tachycardia, Hypomagnesemia, Cellulitis, Leukocytosis Patient Disposition: Admitted As Inpatient Condition: Serious Discharge Instructions Interventions: ED Discharge Assessment Last Done: 09/05/20 19:13 Discharge Problem: Sepsis Qualifiers: Sepsis type: sepsis due to unspecified organism Sepsis acute organ dysfunction status: with acute organ dysfunction Severe sepsis acute organ dysfunction type: acute renal failure Acute renal failure type: unspecified Severe sepsis shock status: without septic shock Qualified Code(s): A41.9 - Sepsis, unspecified organism Cellulitis Qualifiers: Site of cellulitis: extremity Site of cellulitis of extremity: lower extremity Laterality: left Qualified Code(s): L03.116 - Cellulitis of left lower limb Leukocytosis Qualifiers: Leukocytosis type: unspecified Qualified Code(s): D72.829 - Elevated white blood cell count, unspecified
[2020-09-05 15:10] LABS: Hematocrit (blood only) 40.8 % (42-52); Hemoglobin 13.9 g/dL (14.0-18.0); Mean Corpuscular Hemoglobin 28.4 pg (25-34); Mean Corpuscular Hgb Conc 34.1 g/dL (32-36); Mean Corpuscular Volume 83.3 fL (80-100); Mean Platelet Volume 11.2 fL (7.4-10.4); Platelet Count 342 K/uL (130-400); RDW Standard Deviation 42.1 fL (36.4-46.3); White Blood Count 24.88 K/uL (4.8-10.8)
[2020-09-05] MEDS ORDERED: DAPTOmycin 650 MG in SYRINGE 0 ML IV ONE (15:18)
[2020-09-05 15:27] LABS: Albumin Level 2.6 gm/dl (3.4-5.0); BUN Creatinine Ratio 8.3 (10-20); Calcium 9.1 mg/dl (8.5-10.1); Est GFR (Non-African American) 18.1 ml/min; Magnesium 1.4 mg/dl (1.8-2.4); Potassium 4.3 mmol/L (3.5-5.1)
[2020-09-05 15:32] LABS: Albumin Globulin Ratio 0.4 (0.9-2); Bilirubin,Total 0.4 mg/dl (0.2-1); Partial Thromboplastin Time 25.1 Seconds (21.0-31.0); Prothrombin Time 10.3 Seconds (9.0-12.0); Total Protein 8.6 gm/dl (6.4-8.2); Troponin I 0.034 ng/ml (0-0.045)
[2020-09-05 15:35] LABS: Basophils # (auto) 0.03 K/uL (0-0.2); Basophils % (auto) 0.1 %; Eosinophils # (auto) 0.02 K/uL (0-0.5); Eosinophils % (auto) 0.1 %; Immature Granulocytes # (auto) 0.17 K/uL (0.00-0.02); Immature Granulocytes % (auto) 0.7 %; Lymphocytes # (auto) 0.75 K/uL (1.2-3.4); Monocytes # (auto) 0.88 K/uL (0.11-0.59); Monocytes % (auto) 3.5 %; Neutrophils # (auto) 23.03 K/uL (1.4-6.5); Neutrophils % (auto) 92.6 %
[2020-09-05] MEDS ORDERED: SODIUM CHLORIDE 0.9% 500 ML IV ONE (15:39)
[2020-09-05] MEDS ORDERED: MAGNESIUM SULFATE / D5W 1 GM/100 ML BAG IV STA ×2 (15:42)
--- NOTE | 2020-09-05 15:56 | XRay Report ---
XR chest 1V portable HISTORY: SEPSIS COMPARISON: Chest 08/13/2020. FINDINGS: No pneumothorax or no pleural effusions. The cardiac silhouette remains mildly enlarged. No focal lung consolidations to suggest pneumonia. No evidence for pulmonary edema. IMPRESSION: Stable mild cardiomegaly. Otherwise, no acute process within the chest. ACT 112: Negative or not required by law. Electronically signed by: Ken Robbins M.D. 09/05/2020 3:55 PM
[2020-09-05] MEDS ORDERED: LACTATED RINGER'S 500 ML IV ONE (17:27)
--- NOTE | 2020-09-05 17:41 | History & Physical Report ---
Date of Service September 05, 2020 Assessment & Plan (1) Sepsis: Sepsis from cellulitis from left leg and left foot - SIRS SIRS 2 qSOFA-1 - Blood cultures pending, urine pending - Lactate 5.3--> 3.9 Following 2.5 liters crystalloid resuscitation - 500ml bolus x1 now and then Normosol 125 ml x1 liter over night. - PCT 0.35, ESR/CRP pending in morning - Xray-2 views left leg rule out GAS - WBC 24 with NLR: 24:1-- hemoconcentrated as well, follow in morning ID consult with culture results or if patient not responding. (2) Cellulitis of left lower extremity: Awaiting cultures- continue cefepime and daptomycin which would cover for h/o previous Staph, Enterococcus, and Group G Strep - non purulent, - left foot ulcer healing no acute erythema around site, serous drainage - No other infections (3) Diabetic foot ulcer associated with type 2 diabetes mellitus: As above - wound care consult - podiatry consult per patient request (4) Uncontrolled type 2 diabetes mellitus: Glycemic consult to pharmacy with sepsis and poor control at baseline (5) HTN (hypertension): BP improved following volume resuscitation to his normal range 120-130 - continue to follow hemodynamics (6) Hyperlipidemia: Continue Vascepa (7) Obesity: Chronic- consider assistance from bariatric medicine BMI 45.1 (8) Chronic kidney disease, stage IV (severe): Baseline poor kidney function- currently dosing medicine for CCR >30 - if worsening renal function will need to re-adjust -hold home lisinopril for mild renal insufficiency and lower dose of Lyrica (9) SVT (supraventricular tachycardia): Driven by sepsis continue Coreg consult Cardiology (10) Hypomagnesemia: replace with IV mag sulfate follow Mag in AM (11) DVT prophylaxis: Heparin SQ History of Present Illness Primary Care Provider: Lanny Guerrier 40 YOM with past medical history of obesity, uncontrolled diabetes, frequent cellulitis of lower extremities, HLD, CKD, III, UNIQUE. Patient was recently discharged on for group G streptococcus cellulitis of the left foot requiring a sting in the ICU. The patient was treated with Zosyn and transitioned to Rocephin 2 GM IV for discharge and completed a 14 day course of IV Rocephin at home with his negative blood cultures. Patient comes in to the ER today complaining of nausea, fevers, and generalized malaise. He was noted to have a WBC count 24.88 and elevated lactate at 5.7. He was given Cefepime and Daptomycin in the ER, volume resuscitated with 2.5 Liters of crystalloid. He continues to be tachycardic in the 120s but is coming down following treatment. Patient will be admitted to PCU follow up his laccate levels and hemodynamic response to IV antibiotic treatment. He is mentating well and and no other evidence of organ dysfunction. He had a venous Doppler study done on to rule out VTE after following up with PCP and concern for his readiness of his leg for DVT. This was negative. Allergies Allergy/AdvReac Type Severity Reaction Status Date / Time piperacillin [From Zosyn] Allergy Severe Fever Verified 09/05/20 15:50 tazobactam [From Zosyn] Allergy Severe Fever Verified 09/05/20 15:50 amoxicillin AdvReac Mild Gastrointestinal Verified 09/05/20 15:50 Upset Home Medications Medication Instructions Recorded Confirmed Type amlodipine 10 mg PO QAM 04/08/19 09/05/20 History atorvastatin 80 mg PO QAM 04/08/19 09/05/20 History alprazolam 1 mg tablet 1 mg PO DAILY PRN 10/14/19 09/05/20 History bupropion HCl 150 mg tablet,12 hr 150 mg PO QAM 10/14/19 09/05/20 History sustained-release pregabalin 100 mg capsule 100 mg PO BID 12/01/19 09/05/20 History multivitamin 1 tab PO QAM 01/04/20 09/05/20 History amitriptyline 25 mg PO HS 01/14/20 09/05/20 History insulin aspart U-100 100 unit/mL 0 unit SUBCUT TIDM ml 03/21/20 09/05/20 History (3 mL) subcutaneous pen icosapent ethyl [Vascepa] 2 g PO BID 04/13/20 09/05/20 History tamsulosin 0.4 mg PO HS #30 cap 04/26/20 09/05/20 Rx insulin glargine 100 unit/mL (3 54 unit SQ BID box 07/31/20 09/05/20 History mL) subcutaneous pen semaglutide 0.5 mg SUBCUT .weekly ml 07/31/20 09/05/20 History acetaminophen [Tylenol 8 Hour] 650 mg PO Q8H PRN #60 tab 08/13/20 09/05/20 Rx calcium acetate(phosphat bind) 667 mg PO TIDM #90 cap 08/13/20 09/05/20 Rx carvedilol 25 mg PO BID #60 tab 08/13/20 09/05/20 Rx ceftriaxone 2 g IV DAILY #5 ea 08/13/20 09/05/20 Rx lisinopril 20 mg tablet 20 mg PO DAILY #90 tab 08/24/20 09/05/20 Rx Past Med/Surg History Medical History Abnormal CT scan, chest Anemia due to chronic kidney disease Chronic diarrhea reason for colonoscopy Chronic kidney disease, stage 4 (severe) Diabetic nephropathy associated with type 2 diabetes mellitus DM neuropathy, painful DM retinopathy Habitual snoring never had a sleep study test done Hidradenitis suppurativa HTN (hypertension) Hyperlipidemia Kidney stones Morbid obesity with BMI of 45.0-49.9, adult Obesity Proteinuria Uncontrolled type 2 diabetes mellitus Surgical History History of cardiac cath 2014 ?? 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 History of eye surgery left eye multiple before eye removal History of tooth extraction History of wisdom tooth extraction Status post epidural steroid injection Family History Mother No problems noted. Father , Age 60, [place] Myocardial infarction Unknown Charcot-Ana disease Neuropathy Brother Family history of diabetes mellitus Other No family history of adverse response to anesthesia No significant family history Social History Smoking Status: Never smoker Second Hand Exposure: No; Hx Alcohol Use: No Hx Substance Use: Yes Last Used Substance: Days (ago) Substance Use Type Other:: edibles for neuropathy Preferred Language: Beninese Communication Ability: Effective Visual Impairment: No Limitations Steam Fitter Required: No Beliefs That Will Affect Care: None marital status: Current Living Situation: Spouse Current Living Situation Comment: Lives with spouse current occupational status: employed Feels Safe at Home: Yes Safety Concerns: Feels Safe At This Time Assistive Devices: Glasses Assistive Devices Comment: prosthetic left eye Review of Systems Review of Systems: REVIEW OF SYSTEMS: Constitutional: (+) fever, NO sweats or chills Eyes: No diplopia, no worsening or blurred vision ENT: normal hearing, no trouble swallowing Respiratory: No cough, sputum, dyspnea at rest or on exertion Cardiovascular: No chest pain, tightness or palpitations Abdomen: (+) nausea, No pain, nausea, diarrhea or constipation Musculoskeletal: No joint pain, calf pain, swelling Neurologic: No weakness, numbness/tingling, or balance problems Psychiatric: No anxiety or depression Skin: (+) left leg redness and pain, No rash or itch Physical Exam Physical Exam: PHYSICAL EXAM: General: awake, alert, no apparent distress Head: Normocephalic, atraumatic ENT: PERRL, EOMI, no pharyngeal exudate, mucous membranes moist Neuro: AAO x 3, speech clear and appropriate, strength intact bilaterally 5/5, sensation intact and equal all extremities and dermatomes, no pronator drift Chest: equal rise and fall of the chest, no accessory muscle use, no heaves or thrills, Clear to auscultation, on room air, Cardiac: Regular rate and rhythm, telemetry reviewed, skin warm dry, cap refill <3 seconds, peripheral pulses +2 no JVD, no murmur, no edema GI: NABS x 4 quadrants, soft, nontender to palpation, no rebound, guarding or tenderness : Spontaneously voiding, no pain, no CVA tenderness, Extremities: circumferential erythema and edema to left mid calf, no purulence or drainage, no open areas on leg, left foot with without involvement. Normal inspection, no peripheral edema or erythema, calfs nontender to palpation. Psych: Normal mood and affect Skin: no rash or erythema Results & Data Results & Data ([facility]) Vital Signs (Past 12 Hours) Vital Signs Temp Pulse Pulse Resp BP BP Pulse Ox 09/05/20 17:02 37.9 C H 126 H 19 97 09/05/20 16:45 132 H 16 128/92 97 09/05/20 16:30 131 H 21 146/88 H 96 09/05/20 16:15 138 H 12 125/78 96 09/05/20 16:00 140 H 20 113/75 97 09/05/20 15:47 144 H 22 92 09/05/20 15:45 145 H 30 H 158/86 H 90 09/05/20 15:44 145 H 28 H 163/84 H 91 09/05/20 15:31 147 H 27 H 202/96 H 93 09/05/20 15:30 144 H 20 96 09/05/20 15:15 147 H 18 166/106 H 96 09/05/20 15:13 149 H 14 155/98 H 98 09/05/20 15:12 149 H 28 H 210/115 H 96 09/05/20 15:11 145 H 24 97 09/05/20 15:05 26 H 96 09/05/20 15:00 150 H 20 09/05/20 14:52 38.9 C H 153 H 22 184/98 H 09/05/20 14:51 155 H 20 184/98 H 95 09/05/20 14:42 38 C H 160 H 18 145/87 H 95 Laboratory Results Abnormal lab results 09/05/20 09/05/20 09/05/20 Range/Units 15:00 15:00 15:00 WBC 24.88 H (4.8-10.8) K/uL Hgb 13.9 L (14.0-18.0) g/dL Hct 40.8 L (42-52) % MPV 11.2 H (7.4-10.4) fL Neut # (Auto) 23.03 H (1.4-6.5) K/uL Lymph # (Auto) 0.75 L (1.2-3.4) K/uL [place] # (Auto) 0.88 H (0.11-0.59) K/uL Immature Gran # (Auto) 0.17 H (0.00-0.02) K/uL Anion Gap 12.0 H (3-11) BUN 33 H (7-18) mg/dl Creatinine 3.90 H (0.6-1.4) mg/dl BUN/Creatinine Ratio 8.3 L (10-20) Glucose 265 H (70-99) mg/dl Lactate 5.7 H* (0.4-2.0) mmol/L Magnesium 1.4 L (1.8-2.4) mg/dl Total Protein 8.6 H (6.4-8.2) gm/dl Albumin 2.6 L (3.4-5.0) gm/dl Globulin 6.0 H (2.5-4.0) gm/dl Albumin/Globulin Ratio 0.4 L (0.9-2) Diagnostic Findings Chest X-Ray 09/05/20 14:59 XR chest 1V portable HISTORY: SEPSIS COMPARISON: Chest 08/13/2020. FINDINGS: No pneumothorax or no pleural effusions. The cardiac silhouette remains mildly enlarged. No focal lung consolidations to suggest pneumonia. No evidence for pulmonary edema. IMPRESSION: Stable mild cardiomegaly. Otherwise, no acute process within the chest. Electronically signed by: Ken Robbins M.D. 09/05/2020 3:55 PM Medications Administered Discontinued Medications Acetaminophen (Acetaminophen 1000 Mg/100 Ml Iv) 1,000 mg IV NOW STA Stop: 09/05/20 14:58 Last Admin: 09/05/20 15:18 Dose: 1,000 mg Documented by: [id number] Cefepime HCl (Maxipime) 2,000 mg in 20 mls @ 5 mls/min IV NOW STA; Protocol Stop: 09/05/20 15:00 Last Admin: 09/05/20 15:19 Dose: 5 mls/min Documented by: [id number] Sodium Chloride (Nss 1000ml) 1,000 mls @ 999 mls/hr IV .Q1H1M ONE Stop: 09/05/20 15:57 Last Infusion: 09/05/20 16:14 Dose: 0 mls/hr Documented by: [id number] Admin: 09/05/20 15:20 Dose: 999 mls/hr Documented by: [id number] Daptomycin 650 mg/ Syringe 13 mls @ 6.5 mls/min IV NOW ONE; Protocol Stop: 09/05/20 15:19 Last Admin: 09/05/20 17:00 Dose: 6.5 mls/min Documented by: [id number] Sodium Chloride (Nss 1000ml) 1,000 mls @ 999 mls/hr IV .Q1H1M ONE Stop: 09/05/20 16:19 Last Infusion: 09/05/20 16:14 Dose: 0 mls/hr Documented by: [id number] Admin: 09/05/20 15:42 Dose: 999 mls/hr Documented by: [id number] Sodium Chloride (Nss) 500 mls @ 999 mls/hr IV .Q31M ONE Stop: 09/05/20 16:09 Last Admin: 09/05/20 15:43 Dose: 999 mls/hr Documented by: [id number] Magnesium Sulfate/Dextrose (Magnesium Sulfate / D5w) 1 gm in 100 mls @ 100 mls/hr IV NOW STA Stop: 09/05/20 16:41 Last Admin: 09/05/20 16:59 Dose: 100 mls/hr Documented by: [id number] Morphine Sulfate (Morphine Sulfate 4 Mg/Ml 1 Ml Carp\Vial) 4 mg IV NOW STA Stop: 09/05/20 15:02 Last Admin: 09/05/20 15:18 Dose: 4 mg Documented by: [id number] Ondansetron HCl (Ondansetron Inj 2 Mg/Ml 2 Ml Vial) 4 mg IV NOW STA Stop: 09/05/20 15:02 Last Admin: 09/05/20 15:18 Dose: 4 mg Documented by: [id number] Additional Comments: Supraventricular tachycardia Left axis deviation Anterior infarct , age undetermined Marked ST abnormality, possible lateral subendocardial injury Abnormal ECG Code Status & VTE Plan Code Status CODE: FULL VTE: SCD's, Heparin sub q Supervising Physician Co-Signing Physician Notes MEDICAL ASSISTANT INSTRUCTOR Supervision note: I have personally seen and examined the patient and discussed and verified the sauceda points of the history and physical along with the plan with JA Mata with the following exceptions and/or additions: Patient is a 40-year-old unhealthy uncontrolled diabetic with history of hypertension, recent group G Streptococcus bacteremia, and other history as above, here with acute onset of left leg pain, erythema, and swelling with fevers, tachycardia, and leukocytosis. Will be admitted for sepsis secondary to left lower extremity cellulitis. History ROS reviewed as above Vitals reviewed Gen: AAOx3, NAD, morbidly obese HEENT: Anicteric sclerae, EOMI CV: Regular rhythm, tachycardic no mgr nl S1S2 Pulm: CTAB no wcr Abd: +BS soft NT ND no masses or hernias Ext: Left greater than right 2+ edema in legs Skin: Left anterior and lateral leg with confluent erythema, tenderness to palpation and warmth Neuro: Full strength throughout Laboratory values and radiology studies reviewed ECG reviewed 40-year-old male with history as above, here with sepsis, left lower extremity cellulitis, and mild renal insufficiency Treatment plan outlined as above Continue broad-spectrum antibiotics, follow cultures Renally dose medications Check urinalysis PG Care Time/CCT Total # of Minutes Spent Total Time Spent with Patient: Total time spent is greater than 50% in coordination of care (as documented) at patient's floor/unit and/or counseling patient: Coding Level of Care Code 59822 Initial Inpt Care Lvl 3 Diagnoses Sepsis A41.9 Sepsis acute organ dysfunction status: without acute organ dysfunction Sepsis type: sepsis due to unspecified organism Cellulitis of left lower extremity L03.116 Diabetic foot ulcer associated with type 2 diabetes mellitus E11.621; L97.529 Diabetic foot ulcer location: toe Laterality: left Non-pressure ulcer stage: unspecified non-pressure ulcer stage Uncontrolled type 2 diabetes mellitus E11.65 Glycemic state: with hyperglycemia HTN (hypertension) I10 Hypertension type: essential hypertension Hyperlipidemia E78.5 Hyperlipidemia type: unspecified Obesity E66.01; Z68.42 Body mass index: BMI 45.0-49.9 Obesity classification: adult class 3 (BMI >= 40) Obesity type: due to excess calories Serious obesity comorbidity presence: with serious comorbidity Chronic kidney disease, stage IV (severe) N18.4 SVT (supraventricular tachycardia) I47.1 Hypomagnesemia E83.42 DVT prophylaxis Z29.9 (1) Diabetic foot ulcer associated with type 2 diabetes mellitus Diabetic foot ulcer location: toe Laterality: left Non-pressure ulcer stage: unspecified non-pressure ulcer stage Qualified Code(s): E11.621 - Type 2 diabetes mellitus with foot ulcer; L97.529 - Non-pressure chronic ulcer of other part of left foot with unspecified severity (2) Hyperlipidemia Hyperlipidemia type: unspecified Qualified Code(s): E78.5 - Hyperlipidemia, unspecified (3) Uncontrolled type 2 diabetes mellitus Glycemic state: with hyperglycemia Qualified Code(s): E11.65 - Type 2 diabetes mellitus with hyperglycemia (4) Sepsis Sepsis acute organ dysfunction status: without acute organ dysfunction Sepsis type: sepsis due to unspecified organism Qualified Code(s): A41.9 - Sepsis, unspecified organism (5) HTN (hypertension) Hypertension type: essential hypertension Qualified Code(s): I10 - Essential (primary) hypertension (6) Obesity Body mass index: BMI 45.0-49.9 Obesity classification: adult class 3 (BMI >= 40) Obesity type: due to excess calories Serious obesity comorbidity presence: with serious comorbidity Qualified Code(s): E66.01 - Morbid (severe) obesity due to excess calories; Z68.42 - Body mass index [BMI] 45.0-49.9, adult
[2020-09-05] MEDS ORDERED: NORMOSOL-R 1,000 ML IV ONE (18:12)
[2020-09-05] MEDS ORDERED: ONDANSETRON INJ 2 MG/ML 2 ML VIAL IV PRN (20:13)
[2020-09-05] MEDS ORDERED: GLUCOSE 10 TABS/TUBE PO PRN (20:13)
[2020-09-05] MEDS ORDERED: DEXTROSE 50% 50 ML SYRINGE IV PRN (20:13)
[2020-09-05] MEDS ORDERED: GLUCAGON FOR INJ 1 MG VIAL SQ PRN (20:13)
[2020-09-05] MEDS ORDERED: GLUCOSE 40% GEL 15 GM TUBE PO PRN (20:13)
[2020-09-05] MEDS ORDERED: CARBOHYDRATES FOR HYPOGLYCEMIA PO PRN (20:13)
[2020-09-05] MEDS ORDERED: PHARMACY GLYCEMIC MGMT CONSULT PRN (20:32)
[2020-09-05] MEDS ORDERED: PREGABALIN 100 MG CAP PO SCH (21:00)
[2020-09-05] MEDS: MAGNESIUM SULFATE / D5W 1 GM/100 ML BAG IV SCH ×3 (21:04→21:41)
--- NOTE | 2020-09-05 21:07 | XRay Report ---
LEFT TIBIA AND FIBULA 2 VIEWS CLINICAL HISTORY: Cellulitis. FINDINGS: AP and lateral views of the left tibia and fibula are correlated with CT of the left tibia and fibula dated 08/04/2020. The skeletal structures are osteopenic. There is no radiographic evidence of left tibial or fibular fracture. There is no bony erosion or periostitis. The knee and ankle join ts are grossly maintained. Soft tissue edema is present throughout the left lower extremity. Advanced atherosclerotic calcification is noted in the regional arteries. No soft tissue gas is seen. Numerou s soft tissue calcifications are noted. There is a large dorsal calcaneal enthesophyte. IMPRESSION: Soft tissue edema with no acute bony abnormality identified. Electronically signed by: Isaiah Horton M.D. 09/05/2020 9:06 PM
[2020-09-05] MEDS: TAMSULOSIN HCL 0.4 MG CAP PO SCH (21:15)
[2020-09-05] MEDS: ACETAMINOPHEN 325 MG TAB PO PRN (21:15)
[2020-09-05] MEDS: carvediloL 25 MG TAB PO SCH (21:15)
[2020-09-05] MEDS: AMITRIPTYLINE HCL 25 MG TAB PO SCH (21:16)
[2020-09-05] MEDS: INSULIN ASPART 100 UNITS/ML 3 ML PEN SC SCH (21:17)
[2020-09-05] MEDS: INSULIN GLARGINE SOLOSTAR 100 UNITS/ML 3 ML PEN SC SCH (21:18)
[2020-09-05] MEDS: HEPARIN SOD 5,000 UNIT/0.5 ML VIAL SQ SCH (21:42)
[2020-09-05] MEDS ORDERED: LORazepam 0.5 MG TAB PO STA (21:44)
[2020-09-05 22:53] LABS: Bacteria Urine Automated Negative (Negative); Bilirubin Urine Negative (Negative); Blood Urine 2+ (Negative); Color Urine Yellow; Epithelial Cell Urine Auto >30 /lpf (0-5); Glucose Urine UA 2+ (Negative); Ketones Urine Trace (Negative); Leukocyte Esterase Urine Negative (Negative); Nitrite Urine Negative (Negative); Protein Urine 4+ (Negative); RBC Urine Automated 0-4 /hpf (0-4); Specific Gravity Urine 1.026 (1.000-1.030); Urobilinogen Urine Negative (Negative); pH Urine 5.5 (4.5-7.5)
[2020-09-05 22:56] LABS: Appearance Urine Clear (Clear)
[2020-09-05 23:06] LABS: Cast Urine Automated 0 /lpf (0-5)
[2020-09-05 23:35] LABS: Amphetamines+Metham, Urine Neg (Neg); Barbiturates, Urine Neg (Neg); Benzodiazepine, Urine Neg (Neg); Cocaine, Urine Neg (Neg); MDMA (Ecstacy), Urine Neg (Neg); Methadone, Urine Neg (Neg); Opiate, Urine Pos (Neg); Phencyclidine, Urine Neg (Neg)
[2020-09-06] MEDS: INSULIN ASPART 100 UNITS/ML 3 ML PEN SC SCH ×6 (00:02→20:46)
[2020-09-06] MEDS: CEFEPIME 2,000 MG in SYRINGE 0 ML IV SCH ×2 (04:40→15:56)
[2020-09-06] MEDS: ACETAMINOPHEN 325 MG TAB PO PRN ×2 (04:40→20:10)
[2020-09-06] MEDS: HEPARIN SOD 5,000 UNIT/0.5 ML VIAL SQ SCH ×3 (05:13→21:04)
[2020-09-06 06:09] LABS: Hematocrit (blood only) 34.4 % (42-52); Hemoglobin 11.4 g/dL (14.0-18.0); Mean Corpuscular Hemoglobin 28.6 pg (25-34); Mean Corpuscular Hgb Conc 33.1 g/dL (32-36); Mean Corpuscular Volume 86.4 fL (80-100); Platelet Count 280 K/uL (130-400); RDW Coefficient of Variation 14.4 % (11.5-14.5); RDW Standard Deviation 45.3 fL (36.4-46.3); Red Blood Count 3.98 M/uL (4.7-6.1); White Blood Count 26.05 K/uL (4.8-10.8)
[2020-09-06 06:58] LABS: Basophils # (auto) 0.02 K/uL (0-0.2); Basophils % (auto) 0.1 %; Dohle Bodies 1+; Immature Granulocytes # (auto) 0.14 K/uL (0.00-0.02); Immature Granulocytes % (auto) 0.5 %; Lymphocytes % (auto) 4.2 %; Monocytes # (auto) 0.46 K/uL (0.11-0.59); Monocytes % (auto) 1.8 %; Neutrophils # (auto) 24.33 K/uL (1.4-6.5); Neutrophils % (auto) 93.4 %
[2020-09-06 07:02] LABS: BUN Creatinine Ratio 7.8 (10-20); C Reactive Protein 20.6 mg/dl (0-0.29); Calcium 8.1 mg/dl (8.5-10.1); Creatinine Clr Calc Pharmacy 30.8 ml/min; Est GFR (African American) 16.2 ml/min; Potassium 4.8 mmol/L (3.5-5.1); Troponin I 0.082 ng/ml (0-0.045)
[2020-09-06] MEDS: SODIUM CHLORIDE 0.9% 1000ML 1,000 ML IV SCH ×2 (07:12→10:45)
[2020-09-06] MEDS: CALCIUM ACETATE 667 MG CAP/TAB PO SCH ×3 (08:30→17:29)
[2020-09-06] MEDS: ATORVASTATIN 40 MG TAB PO SCH (08:31)
[2020-09-06] MEDS: buPROPion SR 150 MG TABCR PO SCH (08:31)
[2020-09-06] MEDS: OMEGA-3 (PURIFIED FISH OIL) 1 GM CAP PO SCH ×2 (08:32→20:10)
[2020-09-06] MEDS: PREGABALIN 75 MG CAP PO SCH ×2 (08:35→20:12)
[2020-09-06] MEDS ORDERED: lisinopril 20 MG TAB PO SCH (09:00)
[2020-09-06] MEDS ORDERED: INSULIN GLARGINE SOLOSTAR 100 UNITS/ML 3 ML PEN SC SCH ×3 (09:00→09:30)
[2020-09-06] MEDS ORDERED: LANTUS PER UNIT CHARGE SQ STA (09:12)
--- NOTE | 2020-09-06 10:19 | Hospitalist Progress Note ---
Date of Service September 06, 2020 Assessment & Plan (1) Sepsis: Lex Manzano is a 40 yo male with PMHx significant for obesity, uncontrolled T2DM (A1c 8.2 in 07/2020), frequent cellulitis of lower extremities, HLD, CKD IV and UNIQUE. Patient was recently treated for strep bacteremia 2/2 LLE cellulitis in early August. He was admitted to [facility] on 09/05 for sepsis in the setting of another bout of LLE cellulitis. Sepsis Unstable vital signs on presentation with elevated WBC 26/CRP 20/ESR 68/Lactate 6.0. Blood cultures growing GPC in chains (2/2 samples). XR L Fibula/Tibia showing soft tissue edema without bony involvement. Suspect GPC Bacteremia 2/2 LLE Cellulitis. - Lactate 6.0 --> 1.9 this morning, following abx and IVFs - started on Daptomycin/Cefepime, continue both for now - follow blood cx - adjust abx as necessary - s/p 3L NSS boluses, will continue with mIVFs: Normosol-R 150cc/hr - WBC 24 with NLR: 24:1-- hemoconcentrated as well, follow in morning - continue to monitor CBC, CRP - held home Amlodipine/Carvedilol for now in setting of sepsis and need for IVFs BJ on CKDIV Unclear baseline Cr but appears to be in 3s, currently Cr 4.82. Suspect pre- renal injury 2/2 sepsis. - continue mIVFs as stated above - renal med dosing - hold home lisinopril for mild renal insufficiency and lower dose of Lyrica Left Foot Ulcer suspect 2/2 uncontrolled diabetes. - wound care consult - podiatry consult per patient request - continue Lyrica 75mg PO BID SVT, resolved Presented to ED with SVT in [id number] but converted to sinus tachycardia without intervention, and HR has improved with abx/IVFs. Suspect 2/2 sepsis. - continue to monitor for changes on tele - cancelled Cardiology consult Elevated Troponin, resolving Troponin maxed at .084, now .082, suspect Type II NSTEMI due to sepsis. T2DM - Lantus + SSI - pharmacy glycemic consult placed - appreciate recs HTN - holding home Amlodipine/Carvedilol/Lisinopril for now, will plan to re-start gradually once condition improves HLD - Continue Atorvastatin 80mg PO QAM and Vascepa 2g PO BID Depression - continue home Bupropion 150mg PO QAM FEN/GI: DM2 diet, Normosol-R @150cc/hr DVT Prophylaxis: Heparin 5000 units SQ Q8H Code Status: Full code Disposition: PCU w/ tele (2) Cellulitis of left lower extremity: (3) Diabetic foot ulcer associated with type 2 diabetes mellitus: (4) Uncontrolled type 2 diabetes mellitus: (5) HTN (hypertension): (6) Hyperlipidemia: (7) Obesity: (8) Chronic kidney disease, stage IV (severe): (9) SVT (supraventricular tachycardia): (10) Hypomagnesemia: (11) DVT prophylaxis: Admission and Anticipated Discharge Date Admission Date: September 05, 2020 Supervising Physician Co-Signing Physician Notes Resident Physician Supervision Note: I independently interviewed and examined the patient and verified the sauceda history and physical, reviewed labs and image studies and agree with resident Dr. Strickland findings and care plan. Subjective Vital signs improved overnight - HR down from 160s to 100s, T down from 39.4 to 36.8C. Patient reports being fatigued and having moderate left lower leg pain. Also reports fever/chills overnight although denies this now. Decreased appetite this morning. Review of Systems Review of Systems: Denies chest pain, SOB, cough, N/V, abdominal pain, other rash besides for left lower extremity. Physical Exam Physical Exam: General: A&Ox3. Appears fatigued. Obese. NAD. HEENT: Atraumatic, normocephalic. Pulm: CTAB A&P. -wheezes, -rales, -rhonchi. Symmetrical chest rise. No increase work of breathing. No respiratory distress. Cardiac: RRR, -mrg. Radial pulses intact and symmetrical. Abdominal: soft, non-tender, non-distended, BS x 4 Skin: circumferential erythema and edema to left mid calf, without purulence or drainage, no open areas on leg, no involvement of left foot, no crepitus or red streaking. Results & Data Results & Data ([facility]) Vital Signs (Past 12 Hours) Vital Signs Temp Pulse Pulse Resp BP Pulse Ox 09/06/20 08:39 36.8 C 95 H 18 131/73 96 09/06/20 04:45 38.1 C H 09/06/20 04:32 38.1 C H 121 H 18 126/61 96 09/06/20 00:52 128 H 09/05/20 23:27 38.0 C H 106 H 19 101/64 98 Resident Activity Tracking Resident Involvement: Resident Care Provided Care Provided: Adult [facility] Medicine (1) Diabetic foot ulcer associated with type 2 diabetes mellitus Diabetic foot ulcer location: toe Laterality: left Non-pressure ulcer stage: unspecified non-pressure ulcer stage Qualified Code(s): E11.621 - Type 2 diabetes mellitus with foot ulcer; L97.529 - Non-pressure chronic ulcer of other part of left foot with unspecified severity (2) Hyperlipidemia Hyperlipidemia type: unspecified Qualified Code(s): E78.5 - Hyperlipidemia, unspecified (3) Uncontrolled type 2 diabetes mellitus Glycemic state: with hyperglycemia Qualified Code(s): E11.65 - Type 2 diabetes mellitus with hyperglycemia (4) Sepsis Sepsis acute organ dysfunction status: without acute organ dysfunction Sepsis type: sepsis due to unspecified organism Qualified Code(s): A41.9 - Sepsis, unspecified organism (5) HTN (hypertension) Hypertension type: essential hypertension Qualified Code(s): I10 - Essential (primary) hypertension (6) Obesity Body mass index: BMI 45.0-49.9 Obesity classification: adult class 3 (BMI >= 40) Obesity type: due to excess calories Serious obesity comorbidity presence: with serious comorbidity Qualified Code(s): E66.01 - Morbid (severe) obesity due to excess calories; Z68.42 - Body mass index [BMI] 45.0-49.9, adult
[2020-09-06] MEDS ORDERED: HYDROmorphone INJ 0.5 MG/0.5 ML SYR IV STA (11:01)
--- NOTE | 2020-09-06 11:01 | Pharmacy Report ---
Pharmacy Glycemic Short Note 2 - Date of Service September 06, 2020 - Glycemic Short BSG Results (Last 24 hours): 09/05/20 09/05/20 09/05/20 15:00 21:10 23:51 Glucose 265 H POC Glucose 199 H 235 H 09/06/20 09/06/20 09/06/20 04:28 05:59 08:02 Glucose 216 H POC Glucose 203 H 226 H OUTPATIENT ANTIDIABETIC REGIMEN: * Basaglar (insulin glargine) 54 units SQ BID * NovoLog TIDM (up to 100 units/day) * Ozempic * A1c = 8.2% on 08/04/20 ASSESSMENT: * 40yo T2DM male maintained on high doses SQ basal bolus insulin regimen + GLP1RA as an outpatient with suboptimal control. Goal A1c <7%. 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 HS basal insulin dose reduced since typically patients require less than outpatient dosing while admitted secondary to decreased CHO intake as compared to outpatient unrestricted CHO intake. * Overnight BSGs and AM fasting BSG elevated. Will increase insulin regimen and continue to titrate based on BSG trends. PLAN FOR INPATIENT GLYCEMIC CONTROL: * Hold outpatient GLP1 * Basal insulin * Lantus 45 units SQ x 1 dose this morning then HS (15-35 units) per BSG scale- see EMR for details * Bolus insulin * NovoLog per scale ACHS or Q6hrs while NPO * Goal Range: Low 110 mg/dL - High 140 mg/dL * Correction Factor: 10 mg/dL/unit * Nutritional / Prandial insulin per carb ratio of 1 unit per 3 grams CHO consumed PLAN FOR DISCHARGE: * TBD based on A1c
[2020-09-06] MEDS: NORMOSOL-R 1,000 ML IV SCH ×2 (11:06→17:30)
--- NOTE | 2020-09-06 14:13 | Electrocardiogram Report ---
Test Reason : Blood Pressure : / mmHG Vent. Rate : 154 BPM Atrial Rate : 051 BPM P-R Int : 000 ms QRS Dur : 102 ms QT Int : 338 ms P-R-T Axes : 000 -44 121 degrees QTc Int : 541 ms Supraventricular tachycardia , suspect sinus tachycardia Left axis deviation Anterior infarct , age undetermined Marked ST abnormality, possible lateral subendocardial injury Abnormal ECG When compared with ECG of 04-AUG-2020 18:38, No significant change Confirmed by Jc Villagomez ([id number]) on 09/06/2020 2:13:02 PM Referred By: Confirmed By:Jc Villagomez
--- NOTE | 2020-09-06 14:29 | Electrocardiogram Report ---
Test Reason : Blood Pressure : / mmHG Vent. Rate : 132 BPM Atrial Rate : 132 BPM P-R Int : 144 ms QRS Dur : 102 ms QT Int : 300 ms P-R-T Axes : 022 -45 138 degrees QTc Int : 444 ms Sinus tachycardia Possible Left atrial enlargement Left axis deviation Anterior infarct (cited on or before 05-SEP-2020) T wave abnormality, consider lateral ischemia Abnormal ECG When compared with ECG of 05-SEP-2020 14:51, (unconfirmed) No significant change Confirmed by Jc Villagomez ([id number]) on 09/06/2020 2:29:18 PM Referred By: REFERRED SELF Confirmed By:Jc Villagomez
[2020-09-06] MEDS ORDERED: DAPTOmycin 650 MG in SYRINGE 0 ML IV SCH (17:00)
[2020-09-06] MEDS ORDERED: MoRPHine SULFATE 2 MG/ML CARP IV STA (19:54)
[2020-09-06] MEDS: TAMSULOSIN HCL 0.4 MG CAP PO SCH (20:10)
[2020-09-06] MEDS: AMITRIPTYLINE HCL 25 MG TAB PO SCH (20:11)
[2020-09-06] MEDS: INSULIN GLARGINE SOLOSTAR 100 UNITS/ML 3 ML PEN SC SCH (20:58)
--- NOTE | 2020-09-06 22:01 | History & Physical Report ---
Date of Service September 06, 2020 Assessment & Plan (1) Diabetic foot ulcer associated with type 2 diabetes mellitus: Awaiting culture and sensitives. Continue Cefepime and Daptomycin IV I examined the patient for an ulcer that has been resistant to healing. Debris cleansed from left foot wound including pet hair. Wound cleansed with Betadine followed by saline. Factors which likely contribute to non-healing include: lack of adequate off-loading when supine, inadequately controlled infection, lack of adequate off-loading when ambulating, lack of adherence to diabetic footwear, a limited understanding of the disease of diabetes and its processes, lack of adherence to diabetic control measures. Patient would benefit from bedside debridement. Will administer at subsequent visit. Thank you for allowing me to participate in the care of this Patient. Present on Admission?: Yes (2) Cellulitis: Present on Admission?: Yes (3) Cellulitis and abscess of left leg: Present on Admission?: Yes (4) Sepsis: Present on Admission?: Yes Admission and Anticipated Discharge Date Admission Date: September 05, 2020 History of Present Illness Primary Care Provider: Lanny Guerrier Patient seen at bedside resting comfortably. He notes sudden onset of nausea and vomiting and presented to [facility] ED yesterday evening. Patient was admitted for left lower extremity cellulitis with WBC of 24. He is currently on cefepime and Daptomycin. Patient was admitted to [facility] for right foot cellulitis in Apr 2020 that progressed into right foot osteomyelitis treated with use of IV abxs. He was againe admitted to [facility] for left foot cellulitis with sepsis in July 2020. Once admitted for sepsis in July 2020 he suddenly went into kidney failure for reasons not fully known. Patient was seen by nephrology who notes Patient should be now transitioned onto dialysis. Allergies Allergy/AdvReac Type Severity Reaction Status Date / Time piperacillin [From Zosyn] Allergy Severe Fever Verified 09/05/20 15:50 tazobactam [From Zosyn] Allergy Severe Fever Verified 09/05/20 15:50 amoxicillin AdvReac Mild Gastrointestinal Verified 09/05/20 15:50 Upset Home Medications Medication Instructions Recorded Confirmed Type amlodipine 10 mg PO QAM 04/08/19 09/05/20 History atorvastatin 80 mg PO QAM 04/08/19 09/05/20 History alprazolam 1 mg tablet 1 mg PO DAILY PRN 10/14/19 09/05/20 History bupropion HCl 150 mg tablet,12 hr 150 mg PO QAM 10/14/19 09/05/20 History sustained-release pregabalin 100 mg capsule 100 mg PO BID 12/01/19 09/05/20 History multivitamin 1 tab PO QAM 01/04/20 09/05/20 History amitriptyline 25 mg PO HS 01/14/20 09/05/20 History insulin aspart U-100 100 unit/mL 0 unit SUBCUT TIDM ml 03/21/20 09/05/20 History (3 mL) subcutaneous pen icosapent ethyl [Vascepa] 2 g PO BID 04/13/20 09/05/20 History tamsulosin 0.4 mg PO HS #30 cap 04/26/20 09/05/20 Rx insulin glargine 100 unit/mL (3 54 unit SQ BID box 07/31/20 09/05/20 History mL) subcutaneous pen semaglutide 0.5 mg SUBCUT .weekly ml 07/31/20 09/05/20 History acetaminophen [Tylenol 8 Hour] 650 mg PO Q8H PRN #60 tab 08/13/20 09/05/20 Rx calcium acetate(phosphat bind) 667 mg PO TIDM #90 cap 08/13/20 09/05/20 Rx carvedilol 25 mg PO BID #60 tab 08/13/20 09/05/20 Rx ceftriaxone 2 g IV DAILY #5 ea 08/13/20 09/05/20 Rx lisinopril 20 mg tablet 20 mg PO DAILY #90 tab 08/24/20 09/05/20 Rx Past Med/Surg History Medical History Abnormal CT scan, chest Anemia due to chronic kidney disease Chronic diarrhea reason for colonoscopy Chronic kidney disease, stage 4 (severe) Diabetic nephropathy associated with type 2 diabetes mellitus DM neuropathy, painful DM retinopathy Habitual snoring never had a sleep study test done Hidradenitis suppurativa HTN (hypertension) Hyperlipidemia Kidney stones Morbid obesity with BMI of 45.0-49.9, adult Obesity Proteinuria Uncontrolled type 2 diabetes mellitus Surgical History History of cardiac cath 2014 ?? 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 History of eye surgery left eye multiple before eye removal History of tooth extraction History of wisdom tooth extraction Status post epidural steroid injection Family History Mother No problems noted. Father , Age 60, [place] Myocardial infarction Unknown Charcot-Ana disease Neuropathy Brother Family history of diabetes mellitus Other No family history of adverse response to anesthesia No significant family history Social History Smoking Status: Never smoker Second Hand Exposure: No; Hx Alcohol Use: No Hx Substance Use: Yes Last Used Substance: Days (ago) Substance Use Type Other:: edibles for neuropathy Preferred Language: Croatian Communication Ability: Effective Visual Impairment: No Limitations Assisted Living Assistant Required: No Beliefs That Will Affect Care: None marital status: Current Living Situation: Spouse Current Living Situation Comment: Lives with spouse current occupational status: employed Feels Safe at Home: Yes Safety Concerns: Feels Safe At This Time Assistive Devices: Glasses Assistive Devices Comment: prosthetic left eye Review of Systems Review of Systems: All systems reviewed & are unremarkable except as noted in HPI & below Physical Exam Constitutional: well developed and well nourished Eyes: Left eye prosthetic ENMT: external ear and nose normal, oropharynx normal Neck: trachea midline, no thyromegaly Respiratory: normal respiratory effort Cardiovascular: Rate/Rhythm: regular rate and regular rhythm Dorsalis pedis and posterior tibial pulses palpable bilateral. Capillary refill time within normal limits. Absence of leg and pedal hair. Proximal distal cooling within normal limits. Musculoskeletal: Manual muscle test elicits 5 out of 5. Skin: Atrophic changes noted to legs and feet.Left foot MTPJ full thickness ulcer noted.Minimal erythema left footat wound site. Left legerythema. Wound location:Left sub met 5 Wound base color and depth:full thickness ulcer [id number] MTPJ joint capsule Wound size (cm):1.7x1.8x0.4cm Odor:No malodor Drainage:minimalserous drainage Undermining:None Borders:Heavy hyperkeratotic tissue Neurologic: Decreased epicritic sensation to bilateral lower extremities Psychiatric: Orientation: alert and oriented x 3 Lymphatic: Atrophic changes noted to skin secondary to lymphedema integument shows hyperpigmentation hyperkeratosis hyperplasia with papillomatosis and fibrosis. Results & Data Results & Data ([facility]) Vital Signs (Past 12 Hours) Vital Signs Temp Pulse Resp BP BP Pulse Ox 09/06/20 19:34 37.7 C H 122 H 22 117/62 91 09/06/20 16:15 37.2 C 86 20 129/64 96 09/06/20 12:16 37.6 C H 124 H 22 115/75 97 Code Status & VTE Plan VTE Prophylaxis Plan VTE Prophylaxis will be ordered: Yes (1) Cellulitis Laterality: left Site of cellulitis: extremity Site of cellulitis of extremity: lower extremity Qualified Code(s): L03.116 - Cellulitis of left lower limb (2) Sepsis Acute renal failure type: unspecified Sepsis acute organ dysfunction status: with acute organ dysfunction Sepsis type: sepsis due to unspecified organism Severe sepsis acute organ dysfunction type: acute renal failure Severe sepsis shock status: without septic shock Qualified Code(s): A41.9 - Sepsis, unspecified organism; R65.20 - Severe sepsis without septic shock; N17.9 - Acute kidney failure, unspecified (3) Diabetic foot ulcer associated with type 2 diabetes mellitus Diabetic foot ulcer location: toe Laterality: left Non-pressure ulcer stage: unspecified non-pressure ulcer stage Qualified Code(s): E11.621 - Type 2 diabetes mellitus with foot ulcer; L97.529 - Non-pressure chronic ulcer of other part of left foot with unspecified severity
[2020-09-07] MEDS: NORMOSOL-R 1,000 ML IV SCH ×4 (01:18→17:17)
[2020-09-07] MEDS: CEFEPIME 2,000 MG in SYRINGE 0 ML IV SCH (04:47)
[2020-09-07] MEDS: HEPARIN SOD 5,000 UNIT/0.5 ML VIAL SQ SCH ×3 (05:46→22:19)
[2020-09-07 07:45] LABS: Hematocrit (blood only) 28.6 % (42-52); Hemoglobin 9.4 g/dL (14.0-18.0); Mean Corpuscular Hemoglobin 27.8 pg (25-34); Mean Corpuscular Hgb Conc 32.9 g/dL (32-36); Mean Corpuscular Volume 84.6 fL (80-100); Mean Platelet Volume 11.4 fL (7.4-10.4); Platelet Count 224 K/uL (130-400); RDW Coefficient of Variation 14.5 % (11.5-14.5); RDW Standard Deviation 45.2 fL (36.4-46.3); Red Blood Count 3.38 M/uL (4.7-6.1); White Blood Count 17.09 K/uL (4.8-10.8)
[2020-09-07] MEDS: ATORVASTATIN 40 MG TAB PO SCH (08:11)
[2020-09-07] MEDS: CALCIUM ACETATE 667 MG CAP/TAB PO SCH ×3 (08:11→17:58)
[2020-09-07] MEDS: buPROPion SR 150 MG TABCR PO SCH (08:12)
[2020-09-07] MEDS: OMEGA-3 (PURIFIED FISH OIL) 1 GM CAP PO SCH ×2 (08:12→20:05)
[2020-09-07] MEDS: PREGABALIN 75 MG CAP PO SCH ×2 (08:12→20:34)
[2020-09-07] MEDS: INSULIN GLARGINE SOLOSTAR 100 UNITS/ML 3 ML PEN SC SCH ×2 (08:13→20:30)
[2020-09-07] MEDS: INSULIN ASPART 100 UNITS/ML 3 ML PEN SC SCH ×4 (08:13→20:30)
[2020-09-07 08:14] LABS: Basophils # (auto) 0.02 K/uL (0-0.2); Basophils % (auto) 0.1 %; Dohle Bodies 2+; Eosinophils # (auto) 0.01 K/uL (0-0.5); Eosinophils % (auto) 0.1 %; Immature Granulocytes # (auto) 0.07 K/uL (0.00-0.02); Immature Granulocytes % (auto) 0.4 %; Lymphocytes # (auto) 1.49 K/uL (1.2-3.4); Lymphocytes % (auto) 8.7 %; Monocytes # (auto) 0.97 K/uL (0.11-0.59); Monocytes % (auto) 5.7 %; Neutrophils # (auto) 14.53 K/uL (1.4-6.5)
[2020-09-07 08:21] LABS: Estimated Average Glucose 189 mg/dl; Hemoglobin A1C 8.2 % (4.5-5.6)
[2020-09-07 08:25] LABS: BUN Creatinine Ratio 8.3 (10-20); C Reactive Protein 24.8 mg/dl (0-0.29); Creatinine Clr Calc Pharmacy 28.5 ml/min; Est GFR (African American) 14.8 ml/min; Est GFR (Non-African American) 12.8 ml/min; Magnesium 2.2 mg/dl (1.8-2.4); Potassium 4.2 mmol/L (3.5-5.1)
[2020-09-07] MEDS ORDERED: SODIUM CHLORIDE 0.9% 1000ML 500 ML IV ONE (10:59)
[2020-09-07] MEDS: AMPICILLIN 2,000 MG in SODIUM CHLOR 0.9% AD-VAN 100 ML IV SCH ×2 (13:02→19:55)
--- NOTE | 2020-09-07 13:07 | Hospitalist Progress Note ---
Date of Service September 07, 2020 Assessment & Plan (1) Sepsis: Lex Manzano is a 40 yo male with PMHx significant for obesity, uncontrolled T2DM (A1c 8.2 in 07/2020), frequent cellulitis of lower extremities, HLD, CKD IV and UNIQUE. Patient was recently treated for strep bacteremia 2/2 LLE cellulitis in early August. He was admitted to [facility] on 09/05 for sepsis in the setting of another bout of LLE cellulitis. Sepsis sec to Group G Strep Bacteremia Unstable vital signs on presentation with elevated WBC 26/CRP 20/ESR 68/Lactate 6.0. Blood cultures growing rondon-sensitive Group G Beta Strep. XR L Fibula/Tibia showing soft tissue edema without bony involvement. Suspect GPC Bacteremia 2/2 LLE Cellulitis. - transition Daptomycin/Cefepime --> Ampicillin 2g IV Q8H (renally adjusted) - NSS 500cc bolus x1 this AM given BJ (see below), continue with mIVFs: Normosol 190cc/hr - ID consulted given repeat bacteremia with same pathogen he was treated for last cellulitis and finished course 1 wk ago (consider MYKE?) - continue to monitor CBC daily BJ on CKDIV Unclear baseline Cr but appears to be in 3s, Cr 4.82 --> 5.2 today. Suspect ATN 2/2 bacteremia. - NSS bolus this AM and increased mIVFs rate today, as stated above - renal med dosing - held home lisinopril for renal insufficiency and decreased dose of Lyrica Left Foot Ulcer Suspect 2/2 uncontrolled diabetes. - wound care consult - podiatry consult per patient request - continue Lyrica 75mg PO BID - dose adjusted for renal function SVT, resolved Presented to ED with SVT in [id number] but converted to sinus tachycardia without intervention, and HR has improved with abx/IVFs. Suspect 2/2 sepsis. - continue to monitor for changes on tele - continue coreg. - cancelled Cardiology consult Elevated Troponin, resolving Troponin maxed at .084, now .082, suspect Type II NSTEMI due to sepsis. T2DM - A1c 8.2 on 09/06 - Lantus + SSI - pharmacy glycemic consult placed - appreciate recs HTN - resumed home Amlodipine/Carvedilol given improved BPs to 140s/90s and ongoing tachycardia - continue to hold Lisinopril given BJ HLD - Continue Atorvastatin 80mg PO QAM and Vascepa 2g PO BID Depression - continue home Bupropion 150mg PO QAM FEN/GI: DM2 diet, Normosol-R @190cc/hr DVT Prophylaxis: Heparin 5000 units SQ Q8H Code Status: Full code Disposition: PCU w/ tele Admission and Anticipated Discharge Date Admission Date: September 05, 2020 Supervising Physician Co-Signing Physician Notes Resident Physician Supervision Note: I independently interviewed and examined the patient and verified the sauceda history and physical, reviewed labs and image studies and agree with resident Dr. Strickland findings and care plan. consult nephro with rising creatinine Subjective No acute events overnight. Tmax 37.7 yesterday evening. This morning the patient reports improvement in LLE pain. Eating/drinking well. Feels like he has more energy. No complaints today. Review of Systems Review of Systems: Denies chest pain, SOB, cough, N/V, abdominal pain, other rash besides for left lower extremity. Physical Exam Physical Exam: General: A&Ox3. Appears fatigued. Obese. NAD. HEENT: Atraumatic, normocephalic. Pulm: CTAB A&P. -wheezes, -rales, -rhonchi. Symmetrical chest rise. No increase work of breathing. No respiratory distress. Cardiac: RRR, -mrg. Radial pulses intact and symmetrical. Abdominal: soft, non-tender, non-distended, BS x 4 Skin: circumferential erythema and edema to left mid calf that is slightly larger in size compared to yesterday, without purulence or drainage, no open areas on leg, no involvement of left foot, no crepitus or red streaking. Results & Data Results & Data ([facility]) Vital Signs (Past 12 Hours) Vital Signs Temp Pulse Pulse Resp BP Pulse Ox 09/07/20 12:04 116 H 09/07/20 07:56 36.7 C 111 H 16 146/92 H 97 09/07/20 07:18 112 H 09/07/20 03:49 37.0 C 103 H 20 142/68 H 98 Resident Activity Tracking Resident Involvement: Resident Care Provided Care Provided: Adult Hospital Medicine (1) Sepsis Sepsis acute organ dysfunction status: without acute organ dysfunction Sepsis type: sepsis due to unspecified organism Qualified Code(s): A41.9 - Sepsis, unspecified organism
[2020-09-07] MEDS: HYDROmorphone INJ 0.5 MG/0.5 ML SYR IV PRN ×2 (14:31→20:34)
--- NOTE | 2020-09-07 15:57 | Nephrology Consultation ---
Date of Consultation September 07, 2020 Assessment & Plan (1) Acute kidney injury: * BJ due to sepsis related to diabetic ulcer L foot * Hold CARMEN/ARB * Patient is nonoliguric. Urine microscopy is negative for ATN casts. Patient is net 9L volume + since admission * Volume status and electrolyte balance are acceptable. No acute indication for HD today * Monitor PRP (2) Chronic kidney disease, stage IV (severe): * Diabetic kidney disease w/ baseline Cr 3.0 (3) Diabetic foot ulcer associated with type 2 diabetes mellitus: * Recurrent group G strep bacteremia * On Ampicillin therapy. Recommend consultation w/ pharmacy for dosing in the setting of BJ * 07/27 TTE: LVEF 50-55%, mod LVH, no vegetation reported History of Present Illness Reason for Consultation: BJ/CKD Attending Physician: Maria Luisa Denney MD History of Present Illness Mr. Manzano is a 40 year old white male who is seen at the request of Dr. Denney for evaluation of BJ/CKD. Medical records in the EMR were reviewed today and are summarized as follows: Mr. Manzano has longstanding poorly controlled type 2 DM. This has been complicated by retinopathy, peripheral neuropathy and nephropathy. He has stage IV CKD (advanced impairment). Baseline Cr has risen to 3.0 w/ EGFR 25 cc/min. His Outpatient Scheduler is Dr. Fonseca. Recent evaluation has revealed nonobstructed kidneys by US and nephrotic range proteinuria. 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 Manzano. He has not yet pursued AVF creation as he is considering relocating to [place] in October. Mr. Manzano was admitted to [facility] 09/05/20 for evaluation of a non-healing L foot ulcer and streptococcal bacteremia. He was initially hypotensive and required volume resuscitation. ID consultation was obtained and patient is on IV Ampicillin. TTE has been recommended. Creatinine has risen to 5.0. Allergies Allergy/AdvReac Type Severity Reaction Status Date / Time piperacillin [From Zosyn] Allergy Severe Fever Verified 09/05/20 15:50 tazobactam [From Zosyn] Allergy Severe Fever Verified 09/05/20 15:50 amoxicillin AdvReac Mild Gastrointestinal Verified 09/05/20 15:50 Upset Home Medications Medication Instructions Recorded Confirmed Type amlodipine 10 mg PO QAM 04/08/19 09/05/20 History atorvastatin 80 mg PO QAM 04/08/19 09/05/20 History alprazolam 1 mg tablet 1 mg PO DAILY PRN 10/14/19 09/05/20 History bupropion HCl 150 mg tablet,12 hr 150 mg PO QAM 10/14/19 09/05/20 History sustained-release pregabalin 100 mg capsule 100 mg PO BID 12/01/19 09/05/20 History multivitamin 1 tab PO QAM 01/04/20 09/05/20 History amitriptyline 25 mg PO HS 01/14/20 09/05/20 History insulin aspart U-100 100 unit/mL 0 unit SUBCUT TIDM ml 03/21/20 09/05/20 History (3 mL) subcutaneous pen icosapent ethyl [Vascepa] 2 g PO BID 04/13/20 09/05/20 History tamsulosin 0.4 mg PO HS #30 cap 04/26/20 09/05/20 Rx insulin glargine 100 unit/mL (3 54 unit SQ BID box 07/31/20 09/05/20 History mL) subcutaneous pen semaglutide 0.5 mg SUBCUT .weekly ml 07/31/20 09/05/20 History acetaminophen [Tylenol 8 Hour] 650 mg PO Q8H PRN #60 tab 08/13/20 09/05/20 Rx calcium acetate(phosphat bind) 667 mg PO TIDM #90 cap 08/13/20 09/05/20 Rx carvedilol 25 mg PO BID #60 tab 08/13/20 09/05/20 Rx ceftriaxone 2 g IV DAILY #5 ea 08/13/20 09/05/20 Rx lisinopril 20 mg tablet 20 mg PO DAILY #90 tab 08/24/20 09/05/20 Rx Patient History Medical History Abnormal CT scan, chest Anemia due to chronic kidney disease Chronic diarrhea reason for colonoscopy Chronic kidney disease, stage 4 (severe) Diabetic nephropathy associated with type 2 diabetes mellitus DM neuropathy, painful DM retinopathy Habitual snoring never had a sleep study test done Hidradenitis suppurativa HTN (hypertension) Hyperlipidemia Kidney stones Morbid obesity with BMI of 45.0-49.9, adult Obesity Proteinuria Uncontrolled type 2 diabetes mellitus Surgical History History of cardiac cath 2014 ?? 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 History of eye surgery left eye multiple before eye removal History of tooth extraction History of wisdom tooth extraction Status post epidural steroid injection Family History Mother No problems noted. Father , Age 60, [place] Myocardial infarction Unknown Charcot-Ana disease Neuropathy Brother Family history of diabetes mellitus Other No family history of adverse response to anesthesia No significant family history Social History Smoking Status: Never smoker Second Hand Exposure: No; Hx Alcohol Use: No Hx Substance Use: Yes Last Used Substance: Days (ago) Substance Use Type Other:: edibles for neuropathy Preferred Language: Spanish Communication Ability: Effective Visual Impairment: No Limitations Still Tender Required: No Beliefs That Will Affect Care: None marital status: Current Living Situation: Spouse Current Living Situation Comment: Lives with spouse current occupational status: employed Feels Safe at Home: Yes Safety Concerns: Feels Safe At This Time Assistive Devices: Glasses Assistive Devices Comment: prosthetic left eye Review of Systems Constitutional: + fever and + weakness Eyes: no problem reported Ear, Nose, Mouth, Throat: no problem reported Respiratory: no dyspnea Cardiovascular: no chest pain Gastrointestinal: no abdominal pain and no nausea Genitourinary: no dysuria, no urinary hesitancy and no hematuria Neurologic: no confusion Physical Exam Constitutional: not in distress Eyes: PERRL, conjunctivae normal, anicteric sclerae ENMT: external ear and nose normal, oropharynx normal Neck: trachea midline, no thyromegaly Respiratory: normal respiratory effort, lungs clear to auscultation Cardiovascular: Rate/Rhythm: + tachycardic Gastrointestinal (Abdomen): Percussion/Palpation: abdomen soft; abdomen nontender Skin: L foot ulcer without erythema or drainage Results & Data ([facility]) Vital Signs (Past 12 Hours) Vital Signs Temp Pulse Pulse Resp BP Pulse Ox 09/07/20 12:04 116 H 09/07/20 07:56 36.7 C 111 H 16 146/92 H 97 09/07/20 07:18 112 H Laboratory Tests 04/21/20 08/23/20 09/05/20 Unknown 13:10 22:38 WBC Hgb Hct Plt Count Sodium Potassium Chloride Carbon Dioxide BUN Creatinine 2.96 H Glucose Hemoglobin A1c Calcium C-Reactive Protein Urine Color Yellow Urine Appearance Clear Urine pH 5.5 Ur Specific Bastian 1.026 Urine Protein 4+ H Urine Glucose (UA) 2+ H Urine Blood 2+ H Urine WBC (Auto) 5-10 H Urine RBC (Auto) 0-4 Urine Bacteria (Auto) Negative Protein/Creatinin Ratio 10.6 H 09/07/20 09/07/20 09/07/20 07:12 07:12 07:12 WBC 17.09 H Hgb 9.4 L Hct 28.6 L Plt Count 224 Sodium 130 L Potassium 4.2 Chloride 101 Carbon Dioxide 22 BUN 43 H Creatinine 5.20 H* D Glucose 123 H Hemoglobin A1c 8.2 H Calcium 8.0 L C-Reactive Protein 24.80 H Urine Color Urine Appearance Urine pH Ur Specific Bastian Urine Protein Urine Glucose (UA) Urine Blood Urine WBC (Auto) Urine RBC (Auto) Urine Bacteria (Auto) Protein/Creatinin Ratio PG Care Time/CCT Total # of Minutes Spent Total Time Spent with Patient: Total time spent is greater than 50% in coordination of care (as documented) at patient's floor/unit and/or counseling patient: Coding Level of Care Code 57809 Inpt Consult Level 5 Diagnoses Acute kidney injury N17.9 Chronic kidney disease, stage IV (severe) N18.4 Diabetic foot ulcer associated with type 2 diabetes mellitus E11.621; L97.529 Diabetic foot ulcer location: toe Laterality: left Non-pressure ulcer stage: unspecified non-pressure ulcer stage (1) Diabetic foot ulcer associated with type 2 diabetes mellitus Diabetic foot ulcer location: toe Laterality: left Non-pressure ulcer stage: unspecified non-pressure ulcer stage Qualified Code(s): E11.621 - Type 2 diabetes mellitus with foot ulcer; L97.529 - Non-pressure chronic ulcer of other part of left foot with unspecified severity
[2020-09-07] MEDS: carvediloL 25 MG TAB PO SCH (20:04)
[2020-09-07] MEDS: AMITRIPTYLINE HCL 25 MG TAB PO SCH (20:04)
[2020-09-07] MEDS: TAMSULOSIN HCL 0.4 MG CAP PO SCH (20:06)
--- NOTE | 2020-09-07 22:26 | Magnetic Resonance Report ---
MR foot LT w/o con CLINICAL HISTORY: Left lateral foot wound. Assess for osteoarthritis. COMPARISON STUDY: Left foot MRI 08/10/2020.. Left foot radiographs August 03, 2020. TECHNIQUE: Utilizing a 1.5 Lyubov magnet and dedicated coil, multiplanar, multi echo imaging of the le ft forefoot was performed without intravenous contrast. FINDINGS: No significant change in the small wound/skin ulceration along the plantar lateral aspect o f the left fifth metatarsal head. There is mild T2 signal within the adjacent soft tissues suggestive of cellulitis. No fluid collection is identified on this unenhanced exam to suggest an abscess. Ther e is slight marrow edema within the ventral aspect of the left fifth metatarsal head. T1 signal is pr eserved. There is no MR evidence for osteomyelitis within the left forefoot. Tarsometatarsal joints a re intact. Dorsal subcutaneous edema is present. No suspicious osseous lesions are present. No erosio ns are identified. No masses identified on this unenhanced exam. There is progressive subcutaneous ed madelin along the dorsum of the forefoot has also diffuse increased T2 signal/edema throughout the muscle s of the forefoot. This most pronounced within the plantar muscles. This is also similar to the prior study. This could be secondary to a nonspecific myositis or denervation injury. IMPRESSION: 1. No significant change in the focal skin ulceration/wound along the plantar lateral aspect of the l eft fifth metatarsal head. Mild associated cellulitis with no abscess. 2. Minimal edema within the plantar aspect of the left fifth metatarsal head with preserved T1 signal . This remains unchanged. No MR evidence for osteomyelitis. 3. Progressive dorsal subcutaneous trace edema throughout the forefoot. 4. Diffuse increased T2 signal/edema throughout the muscles of the forefoot most pronounced along the plantar muscles. This is consistent with a nonspecific myositis or denervation injury. This is also similar to the prior study. ACT 112: Negative or not required by law. Electronically signed by: Ken Robbins M.D. 09/07/2020 10:25 PM
[2020-09-08] MEDS: NORMOSOL-R 1,000 ML IV SCH ×5 (01:49→19:42)
[2020-09-08 02:22] LABS: Codeine Urine NEGATIVE ng/mL (<50); Hydrocodone Urine NEGATIVE ng/mL (<50); Hydromor Urine NEGATIVE ng/mL (<50); Marijuana Quant, GCMS Urine 519 ng/mL (<5); Morphine Urine 715 ng/mL (<50); Norhydrocodone Conf Ur NEGATIVE ng/mL (<50); Noroxycodone Urine NEGATIVE ng/mL (<50); Oxycodone Urine NEGATIVE ng/mL (<50); Oxymorph Urine NEGATIVE ng/mL (<50)
[2020-09-08] MEDS: HYDROmorphone INJ 0.5 MG/0.5 ML SYR IV PRN ×4 (02:30→20:58)
[2020-09-08] MEDS: AMPICILLIN 2,000 MG in SODIUM CHLOR 0.9% AD-VAN 100 ML IV SCH ×3 (03:56→19:46)
[2020-09-08] MEDS ORDERED: CEFEPIME 2,000 MG in SYRINGE 0 ML IV SCH (04:00)
[2020-09-08] MEDS: HEPARIN SOD 5,000 UNIT/0.5 ML VIAL SQ SCH ×3 (05:44→20:59)
[2020-09-08 07:50] LABS: Basophils # (auto) 0.01 K/uL (0-0.2); Basophils % (auto) 0.1 %; Eosinophils # (auto) 0.01 K/uL (0-0.5); Eosinophils % (auto) 0.1 %; Hematocrit (blood only) 26.1 % (42-52); Hemoglobin 8.7 g/dL (14.0-18.0); Immature Granulocytes # (auto) 0.05 K/uL (0.00-0.02); Immature Granulocytes % (auto) 0.3 %; Lymphocytes # (auto) 1.56 K/uL (1.2-3.4); Lymphocytes % (auto) 10.5 %; Mean Corpuscular Hgb Conc 33.3 g/dL (32-36); Mean Corpuscular Volume 83.9 fL (80-100); Monocytes # (auto) 0.81 K/uL (0.11-0.59); Monocytes % (auto) 5.5 %; Neutrophils # (auto) 12.41 K/uL (1.4-6.5); Neutrophils % (auto) 83.5 %; Platelet Count 195 K/uL (130-400); RDW Coefficient of Variation 14.6 % (11.5-14.5); RDW Standard Deviation 44.6 fL (36.4-46.3); Red Blood Count 3.11 M/uL (4.7-6.1); White Blood Count 14.85 K/uL (4.8-10.8)
[2020-09-08] MEDS: INSULIN ASPART 100 UNITS/ML 3 ML PEN SC SCH ×4 (08:34→19:57)
[2020-09-08] MEDS: OMEGA-3 (PURIFIED FISH OIL) 1 GM CAP PO SCH ×2 (08:37→19:50)
[2020-09-08] MEDS: carvediloL 25 MG TAB PO SCH ×2 (08:38→19:48)
[2020-09-08] MEDS: amLODIPine BESYLATE 5 MG TAB PO SCH (08:39)
[2020-09-08] MEDS: ATORVASTATIN 40 MG TAB PO SCH (08:39)
[2020-09-08] MEDS: buPROPion SR 150 MG TABCR PO SCH (08:39)
[2020-09-08] MEDS: CALCIUM ACETATE 667 MG CAP/TAB PO SCH ×3 (08:40→17:33)
[2020-09-08] MEDS: INSULIN GLARGINE SOLOSTAR 100 UNITS/ML 3 ML PEN SC SCH ×2 (08:48→19:57)
[2020-09-08] MEDS: PREGABALIN 75 MG CAP PO SCH ×3 (08:48→19:54)
[2020-09-08 08:58] LABS: BUN Creatinine Ratio 9.9 (10-20); Creatinine Clr Calc Pharmacy 31.8 ml/min; Est GFR (African American) 16.2 ml/min; Magnesium 2.2 mg/dl (1.8-2.4); Potassium 4.4 mmol/L (3.5-5.1)
[2020-09-08] MEDS ORDERED: EPOETIN ALFA 20,000 UNITS/ML VIAL SQ STA (12:47)
--- NOTE | 2020-09-08 12:47 | Nephrology Progress Note ---
Date of Service September 08, 2020 Assessment & Plan (1) Acute kidney injury: 40-year-old male with stage IV CKD secondary to diabetic nephropathy, admitted to the hospital with sepsis secondary to strep bacteremia and left lower extremity cellulitis, On ampicillin. Renal function slightly improved creatinine down to 4.8 from 5.2 yesterday, electrolyte acceptable. Hemoglobin remained low. -- Schedule for Epogen 64452 units x 1 dose today -- monitor renal function electrolytes daily -- left arm nephrology precaution for future vascular access Will follow (2) Sepsis: (3) Cellulitis of left lower extremity: (4) Chronic kidney disease, stage 4 (severe): (5) Hypertension: (6) Bacteremia due to Streptococcus: Admission and Anticipated Discharge Date Admission Date: September 05, 2020 Subjective Scar denies any further episode of fever, shortness of breath or chest pain. Feeling tired but otherwise asymptomatic. Creatinine slightly improved to 4.8, electrolyte acceptable. Hemoglobin remained low. Blood pressure well controlled. Review of Systems Review of Systems: All systems reviewed & are unremarkable except as noted in Subjective Physical Exam Constitutional: well developed and well nourished; no acute distress Respiratory: normal respiratory effort, lungs clear to auscultation Cardiovascular: Rate/Rhythm: regular rate and regular rhythm Heart Sounds: normal S1 and normal S2 Extremities: + edema ( Left lower extremity edema, erythema and warmth) Skin: + rash and + erythema Neurologic: moves all extremities and awake; not confused Psychiatric: A+Ox3, euthymic affect Results & Data ([facility]) Vital Signs (Past 12 Hours) Vital Signs Temp Pulse Pulse Resp BP Pulse Ox 09/08/20 12:08 36.9 C 104 H 20 125/77 94 09/08/20 08:20 37.0 C 107 H 21 129/85 93 09/08/20 07:48 112 H 09/08/20 04:11 37.4 C 115 H 16 126/77 93 09/08/20 00:59 126 H PG Care Time/CCT Total # of Minutes Spent Total Time Spent with Patient: Total time spent is greater than 50% in coordination of care (as documented) at patient's floor/unit and/or counseling patient: Coding Level of Care Code 92494 Subseq Hosp Care Lvl 3 Diagnoses Acute kidney injury N17.9 Sepsis A41.9 Sepsis acute organ dysfunction status: without acute organ dysfunction Sepsis type: sepsis due to unspecified organism Cellulitis of left lower extremity L03.116 Chronic kidney disease, stage 4 (severe) N18.4 Hypertension I10 Bacteremia due to Streptococcus R78.81; B95.5 (1) Sepsis Sepsis acute organ dysfunction status: without acute organ dysfunction Sepsis type: sepsis due to unspecified organism Qualified Code(s): A41.9 - Sepsis, unspecified organism
--- NOTE | 2020-09-08 12:49 | XCELERA ---
[id number]
--- NOTE | 2020-09-08 15:11 | Anesthesiology Consultation ---
Date of Service September 08, 2020 Assessment & Plan (1) Encounter for pre-operative examination: Chart Review Chart Review: Patient NOT seen in Pre Admission Testing Consults Requested none Additional Notes Consult placed for sedation without further clarification of the planned procedure or date. Will follow in chart and be available to assist with planned sedation when procedure and the team planning procedure becomes more defined. History Height/Weight Height: 6 ft Weight: 159.8 kg Allergies Allergy/AdvReac Type Severity Reaction Status Date / Time piperacillin [From Zosyn] Allergy Severe Fever Verified 09/05/20 15:50 tazobactam [From Zosyn] Allergy Severe Fever Verified 09/05/20 15:50 amoxicillin AdvReac Mild Gastrointestinal Verified 09/05/20 15:50 Upset Medications Home Medications Medication Instructions Recorded Confirmed Last Taken amlodipine 10 mg PO QAM 04/08/19 09/05/20 09/05/20 atorvastatin 80 mg PO QAM 04/08/19 09/05/20 09/05/20 alprazolam 1 mg tablet 1 mg PO DAILY PRN 10/14/19 09/05/20 Unknown bupropion HCl 150 mg tablet,12 hr 150 mg PO QAM 10/14/19 09/05/20 09/05/20 sustained-release pregabalin 100 mg capsule 100 mg PO BID 12/01/19 09/05/20 09/05/20 08:00 multivitamin 1 tab PO QAM 01/04/20 09/05/20 09/05/20 amitriptyline 25 mg PO HS 01/14/20 09/05/20 09/04/20 insulin aspart U-100 100 unit/mL 0 unit SUBCUT TIDM ml 03/21/20 09/05/20 09/05/20 08:00 (3 mL) subcutaneous pen icosapent ethyl [Vascepa] 2 g PO BID 04/13/20 09/05/20 09/05/20 08:00 tamsulosin 0.4 mg PO HS #30 cap 04/26/20 09/05/20 09/04/20 insulin glargine 100 unit/mL (3 54 unit SQ BID box 07/31/20 09/05/20 09/05/20 08:00 mL) subcutaneous pen semaglutide 0.5 mg SUBCUT .weekly ml 07/31/20 09/05/20 09/03/20 acetaminophen [Tylenol 8 Hour] 650 mg PO Q8H PRN #60 tab 08/13/20 09/05/20 Unknown calcium acetate(phosphat bind) 667 mg PO TIDM #90 cap 08/13/20 09/05/20 09/05/20 08:00 carvedilol 25 mg PO BID #60 tab 08/13/20 09/05/20 09/05/20 08:00 ceftriaxone 2 g IV DAILY #5 ea 08/13/20 09/05/20 Unknown lisinopril 20 mg tablet 20 mg PO DAILY #90 tab 08/24/20 09/05/20 09/05/20 Active Medications Generic Name Dose Route Start Last Admin Trade Name Freq PRN Reason Stop Dose Admin Acetaminophen 650 mg 09/05/20 20:13 09/06/20 20:10 Acetaminophen 325 Mg Tab PO 10/05/20 20:12 650 mg Q4H PRN Administration Pain or Fever Amitriptyline HCl 25 mg 09/05/20 21:00 09/07/20 20:04 Amitriptyline Hcl 25 Mg Tab PO 10/05/20 20:59 25 mg HS MELISSA Administration Amlodipine Besylate 10 mg 09/06/20 09:00 09/08/20 08:39 Amlodipine Besylate 5 Mg Tab PO 10/06/20 08:59 10 mg QAM MELISSA Administration Atorvastatin Calcium 80 mg 09/06/20 09:00 09/08/20 08:39 Atorvastatin 40 Mg Tab PO 10/06/20 08:59 80 mg QAM MELISSA Administration Bupropion HCl 150 mg 09/06/20 09:00 09/08/20 08:39 Bupropion Sr 150 Mg Tabcr PO 10/06/20 08:59 150 mg QAM MELISSA Administration Calcium Acetate 667 mg 09/06/20 08:00 09/08/20 12:11 Calcium Acetate 667 Mg Cap/Tab PO 10/06/20 07:59 667 mg TIDM MELISSA Administration Carvedilol 25 mg 09/05/20 21:00 09/08/20 08:38 Carvedilol 25 Mg Tab PO 10/05/20 20:59 25 mg BID MELISSA Administration Fish Oil 1 gm 09/06/20 09:00 09/08/20 08:37 [place]-3 (Purified Fish Oil) 1 Gm Cap PO 10/06/20 08:59 1 gm BID MELISSA Administration Protocol Heparin Sodium (Porcine) 5,000 units 09/05/20 22:00 09/08/20 13:14 Heparin Sod 5,000 Unit/0.5 Ml Vial SQ 10/05/20 21:59 5,000 units Q8 MELISSA Administration Hydromorphone HCl 0.25 mg 09/08/20 09:46 09/08/20 15:20 Hydromorphone Inj 0.5 Mg/0.5 Ml Syr IV 09/21/20 12:46 0.25 mg Q4H PRN Administration Pain Parenteral Electrolytes 1,000 mls @ 100 mls/hr 09/06/20 10:30 09/08/20 14:15 Normosol-R IV 10/06/20 10:29 190 mls/hr .Q10H MELISSA Administration Ampicillin Sodium 2,000 mg/ 100 mls @ 200 mls/hr 09/07/20 12:00 09/08/20 13:13 Sodium Chloride IV 09/21/20 11:59 Infused Q8H MELISSA Infusion Insulin Aspart 0 units 09/05/20 21:00 09/08/20 12:10 Insulin Aspart 100 Units/Ml 3 Ml Pen SC 10/05/20 20:59 20 units ACHS MELISSA Administration Insulin Glargine 54 units 09/07/20 09:00 09/08/20 08:48 Insulin Glargine Solostar 100 Units/Ml 3 Ml Pen SC 10/07/20 08:59 54 units DAILY MELISSA Administration Insulin Glargine 0 units 09/07/20 21:00 09/07/20 20:30 Insulin Glargine Solostar 100 Units/Ml 3 Ml Pen SC 10/07/20 20:59 Not Given HS MELISSA Protocol Pregabalin 75 mg 09/06/20 09:00 09/08/20 11:20 Pregabalin 75 Mg Cap PO 10/06/20 08:59 75 mg BID MELISSA Administration Tamsulosin HCl 0.4 mg 09/05/20 21:00 09/07/20 20:06 Tamsulosin Hcl 0.4 Mg Cap PO 10/05/20 20:59 0.4 mg HS MELISSA Administration Past Medical History Medical History Abnormal CT scan, chest Anemia due to chronic kidney disease Chronic diarrhea reason for colonoscopy Chronic kidney disease, stage 4 (severe) Diabetic nephropathy associated with type 2 diabetes mellitus DM neuropathy, painful DM retinopathy Habitual snoring never had a sleep study test done Hidradenitis suppurativa HTN (hypertension) Hyperlipidemia Kidney stones Morbid obesity with BMI of 45.0-49.9, adult Obesity Proteinuria Uncontrolled type 2 diabetes mellitus Past Family History Family History Mother No problems noted. Father , Age 60, [place] Myocardial infarction Unknown Charcot-Ana disease Neuropathy Brother Family history of diabetes mellitus Other No family history of adverse response to anesthesia No significant family history Past Surgical History Surgical History History of cardiac cath 2014 ?? 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 History of eye surgery left eye multiple before eye removal History of tooth extraction History of wisdom tooth extraction Status post epidural steroid injection Social History Smoking Status: Never smoker Hx Alcohol Use: No Hx Substance Use: Yes substance use type: marijuana Substance Use Type Other:: edibles for neuropathy Last Used Substance: Days (ago) Physical Exam Vital Signs Last Vital Signs Temp 36.9 C 09/08/20 12:08 Pulse 104 H 09/08/20 12:08 Resp 20 09/08/20 12:08 BP 125/77 09/08/20 12:08 Pulse Ox 94 09/08/20 12:08 Testing Laboratory Results 09/08/20 07:35 09/08/20 07:35 PT 10.3 Seconds (9.0-12.0) 09/05/20 15:00 INR 1.0 (0.9-1.1) 09/05/20 15:00 APTT 25.1 Seconds (21.0-31.0) 09/05/20 15:00 Hemoglobin A1c 8.2 % (4.5-5.6) H 09/07/20 07:12 Urine Color Yellow 09/05/20 22:38 Urine Appearance Clear (Clear) 09/05/20 22:38 Urine pH 5.5 (4.5-7.5) 09/05/20 22:38 Ur Specific Berger 1.026 (1.000-1.030) 09/05/20 22:38 Urine Protein 4+ (Negative) H 09/05/20 22:38 Urine Glucose (UA) 2+ (Negative) H 09/05/20 22:38 Urine Ketones Trace (Negative) H 09/05/20 22:38 Urine Nitrite Negative (Negative) 09/05/20 22:38 Ur Leukocyte Esterase Negative (Negative) 09/05/20 22:38 Urine WBC (Auto) 5-10 /hpf (0-5) H 09/05/20 22:38 Urine RBC (Auto) 0-4 /hpf (0-4) 09/05/20 22:38 U Hyaline Cast (Auto) 0 /lpf (0-5) 09/05/20 22:38 U Epithel Cells (Auto) >30 /lpf (0-5) H 09/05/20 22:38 Urine Bacteria (Auto) Negative (Negative) 09/05/20 22:38 09/05/20 15:08 Aerobic Blood Culture - Final Blood Group G Beta Strep Anaerobic Blood Culture - Final Group G Beta Strep 09/05/20 15:00 Aerobic Blood Culture - Final Blood Group G Beta Strep Anaerobic Blood Culture - Final Group G Beta Strep 09/08/20 09/08/20 11:07 07:34 POC Glucose 161 H 151 H Troponin I 08/04/20 0.279 09/05/20 0.034 at 15:00 09/05/20 0.084 at 22:31 09/06/20 0.082 Electrocardiogram Date: 09/08/20 Findings: + NSR @ (100) Normal sinus rhythm, Incomplete left bundle block, T wave abnormality, consider lateral ischemia, Prolonged QT, When compared with ECG of 05-SEP-2020 16:43, ST no longer elevated in Anterior leads Echocardiogram Date: 09/08/20 EF: 50% LV Function: normal RWMA: + none Other Findings: + LVH (moderate, concentric) Valvular Disease: + no significant valvular disease Technically difficult study
[2020-09-08] MEDS ORDERED: DAPTOmycin 650 MG in SYRINGE 0 ML IV SCH (17:00)
--- NOTE | 2020-09-08 18:20 | Hospitalist Progress Note ---
Date of Service September 08, 2020 Assessment & Plan Admission and Anticipated Discharge Date Admission Date: September 05, 2020 Lex Manzano is a 40 yo male with PMHx. significant for obesity, uncontrolled T2DM (A1c 8.2 in 07/2020), frequent cellulitis of lower extremities, HLD, CKD IV and UNIQUE. Patient was recently treated for strep bacteremia 2/2 LLE cellulitis in early August. He was admitted to [facility] on 09/05 for sepsis in the setting of another bout of LLE cellulitis. Sepsis sec to Group G Strep Bacteremia Unstable vital signs on presentation with elevated WBC 26/CRP 20/ESR 68/Lactate 6.0. Blood cultures growing rondon-sensitive Group G Beta Strep. XR L Fibula/Tibia showing soft tissue edema without bony involvement. Suspect GPC Bacteremia 2/2 LLE Cellulitis. - transition Daptomycin/Cefepime --> Ampicillin 2g IV Q8H (renally adjusted) - Normosol 100cc/hr - ID consulted given repeat bacteremia with same pathogen he was treated for last cellulitis and finished course 1 wk ago - TTE negative for vegetations - MYKE ordered; discussed with cardiology potentially to be done on Thursday NPO Thursday night, anesthesia consult ordered BJ on CKD IV Unclear baseline Cr but appears to be in 3s, Cr 4.82 --> 5.2 --> 4.83 today. Suspect ATN 2/2 bacteremia. - continue IVF - renal med dosing - held home lisinopril for renal insufficiency and decreased dose of Lyrica Left Foot Ulcer Suspect 2/2 uncontrolled diabetes. - wound care consult - podiatry consult per patient request - continue Lyrica 75mg PO BID - dose adjusted for renal function SVT, resolved Presented to ED with SVT in [id number] but converted to sinus tachycardia without intervention, and HR has improved with abx/IVFs. Suspect 2/2 sepsis. - continue to monitor for changes on tele - continue coreg. Elevated Troponin, resolving Troponin maxed at .084, now .082, suspect Type II NSTEMI due to sepsis. T2DM - A1c 8.2 on 09/06 - Lantus + SSI - pharmacy glycemic consult placed - appreciate recs HTN - resumed home Amlodipine/Carvedilol given improved BPs to 140s/90s and ongoing tachycardia - continue to hold Lisinopril given BJ HLD - Continue Atorvastatin 80mg PO QAM and Vascepa 2g PO BID Depression - continue home Bupropion 150mg PO QAM FEN/GI: DM2 diet, Normosol-R @100cc/hr DVT Prophylaxis: Heparin 5000 units SQ Q8H Code Status: Full code Disposition: PCU w/ tele Supervising Physician Co-Signing Physician Notes Resident Physician Supervision Note: I independently interviewed and examined the patient and verified the sauceda history and physical, reviewed labs and image studies and agree with resident Dr. Kan findings and care plan. Subjective Lex Manzano was having pain in his left foot 08/16. He brought up that he is having good pain control for 5 hours and has worsening pain prior to his Q6H dosed pain medication. Nursing brought up that after getting his pain medication he will fall in a deep sleep. We talked about the concern for oversedation we decreased the dose and shortened the frequency of the pain medications. Review of Systems Review of Systems: Constitutional: denies fever; admits chills Cardiac: denies chest pain, palpitations, pre-syncope, syncope Pulm.: denies shortness of breath, sputum production admits cough yesterday that has improved : denies urinary symptoms Physical Exam Constitutional: WD/WN, vitals as above Eyes: PERRL, conjunctivae normal, anicteric sclerae ENMT: external ear and nose normal, oropharynx normal Neck: normal visual inspection Respiratory: normal respiratory effort, lungs clear to auscultation Cardiovascular: RRR, no murmur, no edema Gastrointestinal (Abdomen): normal bowel sounds, soft, nontender, no hepatosplenomegaly Skin: - left leg with slight redness redness below marker line mid lower extremity, c/d/i - tender to palpation Neurologic: no focal motor deficits Speech / Cognition: normal speech Psychiatric: A+Ox3, euthymic affect Results & Data Results & Data ([facility]) Vital Signs (Past 12 Hours) Vital Signs Temp Pulse Pulse Resp BP Pulse Ox 09/08/20 17:43 89 09/08/20 16:30 37.0 C 101 H 20 108/60 93 09/08/20 12:08 36.9 C 104 H 20 125/77 94 09/08/20 08:20 37.0 C 107 H 21 129/85 93 09/08/20 07:48 112 H CBC Results Results Complete Blood Count Results: RBC 2.93 M/uL (4.7-6.1) L 09/09/20 WBC 12.18 K/uL (4.8-10.8) H 09/09/20 Hgb 8.1 g/dL (14.0-18.0) L 09/09/20 Hct 24.6 % (42-52) L 09/09/20 Plt Count 216 K/uL (130-400) 09/09/20 Chemistry (BMP) Results BMP Results: Sodium 131 mmol/L (136-145) L 09/09/20 Potassium 4.5 mmol/L (3.5-5.1) 09/09/20 Chloride 99 mmol/L (98-107) 09/09/20 BUN 59 mg/dl (7-18) H 09/09/20 Creatinine 5.96 mg/dl (0.6-1.4) H* 09/09/20 Glucose 105 mg/dl (70-99) H 09/09/20 Resident Activity Tracking Resident Involvement: Resident Care Provided Care Provided: [facility] Medicine
[2020-09-08] MEDS: AMITRIPTYLINE HCL 25 MG TAB PO SCH (19:48)
[2020-09-08] MEDS: TAMSULOSIN HCL 0.4 MG CAP PO SCH (19:52)
[2020-09-09] MEDS: NORMOSOL-R 1,000 ML IV SCH ×2 (01:14→11:18)
[2020-09-09] MEDS: HYDROmorphone INJ 0.5 MG/0.5 ML SYR IV PRN ×3 (01:59→22:50)
[2020-09-09] MEDS: AMPICILLIN 2,000 MG in SODIUM CHLOR 0.9% AD-VAN 100 ML IV SCH ×3 (03:33→20:54)
[2020-09-09] MEDS: HEPARIN SOD 5,000 UNIT/0.5 ML VIAL SQ SCH ×3 (05:09→20:58)
--- NOTE | 2020-09-09 06:45 | Electrocardiogram Report ---
Test Reason : Blood Pressure : / mmHG Vent. Rate : 100 BPM Atrial Rate : 100 BPM P-R Int : 178 ms QRS Dur : 110 ms QT Int : 362 ms P-R-T Axes : 050 -11 156 degrees QTc Int : 466 ms Normal sinus rhythm Incomplete left bundle block T wave abnormality, consider lateral ischemia Abnormal ECG When compared with ECG of 05-SEP-2020 16:43, ST no longer elevated in Anterior leads Confirmed by Dionisio Santana ([id number]) on 09/09/2020 6:45:28 AM Referred By: REFERRED SELF Confirmed By:Dionisio Santana
[2020-09-09 07:15] LABS: Basophils # (auto) 0.02 K/uL (0-0.2); Basophils % (auto) 0.2 %; Eosinophils # (auto) 0.05 K/uL (0-0.5); Eosinophils % (auto) 0.4 %; Hematocrit (blood only) 24.6 % (42-52); Hemoglobin 8.1 g/dL (14.0-18.0); Immature Granulocytes # (auto) 0.15 K/uL (0.00-0.02); Immature Granulocytes % (auto) 1.2 %; Lymphocytes # (auto) 2.12 K/uL (1.2-3.4); Lymphocytes % (auto) 17.4 %; Mean Corpuscular Hemoglobin 27.6 pg (25-34); Mean Corpuscular Hgb Conc 32.9 g/dL (32-36); Mean Platelet Volume 11.6 fL (7.4-10.4); Monocytes # (auto) 0.95 K/uL (0.11-0.59); Monocytes % (auto) 7.8 %; Neutrophils # (auto) 8.89 K/uL (1.4-6.5); Platelet Count 216 K/uL (130-400); RDW Coefficient of Variation 14.6 % (11.5-14.5); Red Blood Count 2.93 M/uL (4.7-6.1); White Blood Count 12.18 K/uL (4.8-10.8)
[2020-09-09 07:57] LABS: Albumin Level 1.6 gm/dl (3.4-5.0); BUN Creatinine Ratio 9.9 (10-20); Calcium 8.1 mg/dl (8.5-10.1); Creatinine Clr Calc Pharmacy 26.2 ml/min; Est GFR (African American) 12.6 ml/min; Est GFR (Non-African American) 10.8 ml/min; Phosphorus 4.2 mg/dl (2.5-4.9); Potassium 4.5 mmol/L (3.5-5.1)
[2020-09-09] MEDS: INSULIN ASPART 100 UNITS/ML 3 ML PEN SC SCH ×4 (08:27→20:56)
[2020-09-09] MEDS: INSULIN GLARGINE SOLOSTAR 100 UNITS/ML 3 ML PEN SC SCH (08:28)
[2020-09-09] MEDS: PREGABALIN 75 MG CAP PO SCH ×2 (08:32→21:01)
[2020-09-09] MEDS: CALCIUM ACETATE 667 MG CAP/TAB PO SCH ×3 (08:32→17:16)
[2020-09-09] MEDS: amLODIPine BESYLATE 5 MG TAB PO SCH (08:33)
[2020-09-09] MEDS: carvediloL 25 MG TAB PO SCH ×2 (08:33→20:55)
[2020-09-09] MEDS: ATORVASTATIN 40 MG TAB PO SCH (08:33)
[2020-09-09] MEDS: buPROPion SR 150 MG TABCR PO SCH (08:33)
[2020-09-09] MEDS: OMEGA-3 (PURIFIED FISH OIL) 1 GM CAP PO SCH ×2 (08:34→20:56)
--- NOTE | 2020-09-09 09:30 | Hospitalist Progress Note ---
Date of Service September 09, 2020 Assessment & Plan (1) Sepsis: Lex Manzano is a 40 yo male with PMHx. significant for obesity, uncontrolled T2DM (A1c 8.2 in 07/2020), frequent cellulitis of lower extremities, HLD, CKD IV and UNIQUE. Patient was recently treated for strep bacteremia 2/2 LLE cellulitis in early August. He was admitted to [facility] on 09/05 for sepsis in the setting of another bout of LLE cellulitis. Sepsis 2/2 Group G Strep Bacteremia Unstable vital signs on presentation with elevated WBC 26/CRP 20/ESR 68/Lactate 6.0. Blood cultures growing rondon-sensitive Group G Beta Strep. XR L Fibula/Tibia showing soft tissue edema without bony involvement. Suspect GPC Bacteremia 2/2 LLE Cellulitis. - continue Ampicillin 2g IV Q8H (renally adjusted) - held IVFs due to fluid overload - see below - ID consulted - appreciate recs - TTE negative for vegetations, MYKE ordered for further eval - discussed with cardiology potentially to be done on Thursday - NPO at midnight Pulmonary Edema Persistent supplemental oxygen requirement 3-4L NC, net +15L fluid balance, TTE with low-normal LV systolic function, BNP elevated 1487 and CXR showing new pulmonary edema and trace pleural effusions --> suspect acute on chronic HFrEF - held IVFs - Bumex 2mg IV x1 today, per Nephrology - supplemental oxygen as needed, wean as tolerated - BiPAP if respiratory status worsens BJ on CKD IV Unclear baseline Cr but appears to be in 3s, Cr 4.83 --> 5.96 today. Suspect ATN 2/2 bacteremia. However, UOP is less than 0.5mL/kg/min and cannot r/o obstructive pathology without further work-up. - Nephro consulted - appreciate recs - held IVFs today given fluid overload - renal US ordered to assess for obstruction and other renal pathology - renal med dosing - held home lisinopril for renal insufficiency and decreased dose of Lyrica Left Foot Ulcer Suspect 2/2 uncontrolled diabetes. - wound care consult - podiatry consult per patient request - continue Lyrica 75mg PO BID - dose adjusted for renal function SVT, resolved Presented to ED with SVT in [id number] but converted to sinus tachycardia without intervention, and HR has improved with abx/IVFs. Suspect 2/2 sepsis. - continue to monitor for changes on tele - continue coreg. Elevated Troponin, resolving Troponin maxed at .084, now .082, suspect Type II NSTEMI due to sepsis. T2DM - A1c 8.2 on 09/06 - Lantus + SSI - pharmacy glycemic consult placed - appreciate recs HTN - resumed home Amlodipine/Carvedilol given improved BPs to 140s/90s and ongoing tachycardia - continue to hold Lisinopril given BJ HLD - Continue Atorvastatin 80mg PO QAM and Vascepa 2g PO BID Depression - continue home Bupropion 150mg PO QAM FEN/GI: DM2 diet, IVFs held given fluid overload DVT Prophylaxis: Heparin 5000 units SQ Q8H Code Status: Full code Disposition: PCU w/ tele Admission and Anticipated Discharge Date Admission Date: September 05, 2020 Supervising Physician Co-Signing Physician Notes Resident Physician Supervision Note: I independently interviewed and examined the patient and verified the sauceda history and physical, reviewed labs and image studies and agree with resident Dr. Strickland findings and care plan. Subjective Patient had T38.1C yesterday evening - currently afebrile. Reports that LLE is s till painful and swelling still present, but redness has decreased. He is eating/drinking well - drinking >1500cc water daily. No other complaints. Review of Systems Review of Systems: Denies fever/chills, chest pain, palpitations, SOB, N/V, abdominal pain. Physical Exam Physical Exam: General: A&Ox3. Obese. NAD. HEENT: Atraumatic, normocephalic. Pulm: Decreased air entry bilaterally. -wheezes, -rales, -rhonchi. Symmetrical chest rise. No increase work of breathing. No respiratory distress. Cardiac: RRR, -mrg. Radial pulses intact and symmetrical. Abdominal: soft, non-tender, non-distended, BS x 4 Skin: circumferential erythema and edema to left mid calf that is slightly smaller in size compared to yesterday, without purulence or drainage, no open areas on leg, no involvement of left foot, no crepitus or red streaking. Results & Data Results & Data ([facility]) Vital Signs (Past 12 Hours) Vital Signs Temp Pulse Pulse Resp BP Pulse Ox 09/09/20 07:42 36.8 C 95 H 19 129/80 93 07/04/21 03:15 36.6 C 88 20 99/74 L 95 09/09/20 00:50 96 H 09/08/20 23:07 36.7 C 103 H 20 116/72 93 CBC Results Results Complete Blood Count Results: RBC 2.93 M/uL (4.7-6.1) L 09/09/20 WBC 12.18 K/uL (4.8-10.8) H 09/09/20 Hgb 8.1 g/dL (14.0-18.0) L 09/09/20 Hct 24.6 % (42-52) L 09/09/20 Plt Count 216 K/uL (130-400) 09/09/20 Resident Activity Tracking Resident Involvement: Resident Care Provided Care Provided: Adult Hospital Medicine (1) Sepsis Sepsis acute organ dysfunction status: without acute organ dysfunction Sepsis type: sepsis due to unspecified organism Qualified Code(s): A41.9 - Sepsis, unspecified organism
--- NOTE | 2020-09-09 11:10 | XRay Report ---
XR chest 1V portable HISTORY: Shortness of breath. assess for pulm edema COMPARISON: Chest 09/05/2020. FINDINGS: No pneumothorax. The heart remains enlarged. There is interval development of perihilar int erstitial/vascular thickening and trace bilateral pleural effusions. This consistent with moderate pu lmonary edema. IMPRESSION: Cardiomegaly with moderate pulmonary edema and trace bilateral pleural effusions. ACT 112: Negative or not required by law. Electronically signed by: Ken Robbins M.D. 09/09/2020 11:09 AM
--- NOTE | 2020-09-09 11:40 | Pharmacy Report ---
Pharmacy Glycemic Short Note 2 - Date of Service September 09, 2020 - Glycemic Short BSG Results (Last 24 hours): 09/08/20 09/08/20 09/09/20 16:23 19:43 06:55 Glucose 105 H POC Glucose 143 H 110 H 09/09/20 09/09/20 07:13 11:23 Glucose POC Glucose 116 H 130 H OUTPATIENT ANTIDIABETIC REGIMEN: * Basaglar (insulin glargine) 54 units SQ BID * NovoLog TIDM (up to 100 units/day) * Ozempic * A1c = 8.2% on 08/04/20 ASSESSMENT: 09/09: * Lex received a total of 118 units of insulin yesterday * 54 units basal + 64 units bolus * BSGs were acceptable: [phone] mg/dL * Fasting BSG was controlled at 116 mg/dL this AM * No changes necessary to insulin regimen PLAN FOR INPATIENT GLYCEMIC CONTROL: * Basal insulin * Lantus 54 units SC AM * Bolus insulin * NovoLog per scale ACHS or Q6hrs while NPO * Goal Range: Low 110 mg/dL - High 140 mg/dL * Correction Factor: 10 mg/dL/unit * Nutritional / Prandial insulin per carb ratio of 1 unit per 3 grams CHO consumed PLAN FOR DISCHARGE: * TBD based on A1c
--- NOTE | 2020-09-09 11:43 | Nephrology Progress Note ---
Date of Service September 09, 2020 Assessment & Plan (1) Acute kidney injury: 40-year-old male with stage IV CKD secondary to diabetic nephropathy, admitted to the hospital with sepsis secondary to strep bacteremia and left lower extremity cellulitis, On ampicillin. Renal function worsened rapidly to creatinine 6 this morning, net more than 3 liters positive. --unclear etiology for rapid worsening of BJ, unlikely volume depletion as he in fact is more than 3 liters positive, ? ATN, postrenal obstruction. Will get renal USG --Bumex 2 mg iv x 1 dose now -- had Epogen 75549 units x 1 dose today -- monitor renal function and electrolytes daily -- left arm nephrology precaution for future vascular access Will follow (2) Sepsis: (3) Cellulitis of left lower extremity: (4) Chronic kidney disease, stage 4 (severe): (5) Hypertension: (6) Bacteremia due to Streptococcus: Admission and Anticipated Discharge Date Admission Date: September 05, 2020 Subjective Scar has been having some shortness of breath this morning which currently improved. Had fever again yesterday evening with temperature 38.2, afebrile now. Has been having decent urine output, had 1100 mL over last 24 hours and total net positive almost 3 liters. Renal function rapidly worsened again to creatinine 6 from 4.8 yesterday. Denies hematuria or flank pain. Review of Systems Review of Systems: All systems reviewed & are unremarkable except as noted in Subjective Physical Exam Constitutional: well developed and well nourished; no acute distress Respiratory: normal respiratory effort and + respiratory distress Auscultation: + diminished lung sounds and + rales Cardiovascular: Rate/Rhythm: regular rate and regular rhythm Heart Sounds: normal S1 and normal S2 Extremities: + edema ( Left lower extremity edema, erythema and warmth) Skin: + rash and + erythema Neurologic: moves all extremities and awake; not confused Psychiatric: A+Ox3, euthymic affect Results & Data ([facility]) Vital Signs (Past 12 Hours) Vital Signs Temp Pulse Pulse Resp BP Pulse Ox 09/09/20 09:00 89 09/09/20 07:42 36.8 C 95 H 19 129/80 93 09/09/20 03:15 36.6 C 88 20 99/74 L 95 09/09/20 00:50 96 H PG Care Time/CCT Total # of Minutes Spent Total Time Spent with Patient: Total time spent is greater than 50% in coordination of care (as documented) at patient's floor/unit and/or counseling patient: Coding Level of Care Code 20938 Subseq Hosp Care Lvl 3 Diagnoses Acute kidney injury N17.9 Sepsis A41.9 Sepsis acute organ dysfunction status: without acute organ dysfunction Sepsis type: sepsis due to unspecified organism Cellulitis of left lower extremity L03.116 Chronic kidney disease, stage 4 (severe) N18.4 Hypertension I10 Bacteremia due to Streptococcus R78.81; B95.5 (1) Sepsis Sepsis acute organ dysfunction status: without acute organ dysfunction Sepsis type: sepsis due to unspecified organism Qualified Code(s): A41.9 - Sepsis, unspecified organism
[2020-09-09] MEDS ORDERED: BUMETANIDE 2 MG in SYRINGE 0 ML IV ONE (12:00)
--- NOTE | 2020-09-09 13:22 | Ultrasound Report ---
RENAL ULTRASOUND HISTORY: Acute kidney injury. COMPARISON: Renal ultrasound 08/07/2020. FINDINGS: Right kidney: 13.5 cm. Mild fullness within the right renal pelvis without negro hydronephrosis. No h ydronephrosis. Normal corticomedullary differentiation and cortical thickness. Left kidney: 11.7 cm. This is partially obscured by overlying bowel. Mild left hydronephrosis. No hyd ronephrosis. Normal corticomedullary differentiation and cortical thickness. Bladder: No bladder wall thickening. The ureteral jets not identified. The bladder is severely disten ded and demonstrates internal debris. IMPRESSION: 1. Severely distended bladder with internal debris suggesting stasis or a cystitis. This could be due to bladder outlet obstruction. Patten catheterization is recommended. 2. Mild fullness within the right renal pelvis and mild left hydronephrosis. This may be secondary to the distended bladder. ACT 112: Negative or not required by law. Electronically signed by: Ken Robbins M.D. 09/09/2020 1:20 PM
[2020-09-09] MEDS ORDERED: LIDOCAINE 2% JELLY 5 ML TUBE ONE (15:11)
--- NOTE | 2020-09-09 17:26 | Podiatry Consultation ---
Date of Consultation September 07, 2020 Assessment & Plan (1) Diabetic foot ulcer associated with type 2 diabetes mellitus: Reviewed ID notes. Continue Amoxicillin I examined the patient for an ulcer that has been resistant to healing. Debris cleansed from left foot wound including pet hair. Wound cleansed with Betadine followed by saline. Factors which likely contribute to non-healing include: lack of adequate off-loading when supine, inadequately controlled infection, lack of adequate off-loading when ambulating, lack of adherence to diabetic footwear, a limited understanding of the disease of diabetes and its processes, lack of adherence to diabetic control measures. Sharp debridement at today's visit. debridement. Today's procedure is an excisional debridement of deep tissue. There is a moderate amount of serosanguineous exudate draining from the ulcer. The ulcer base is described as containing has pink granulation. Necrotic or devitalized tissue is estimated to be present in approximately 60% of the pressure ulcer bed. The ulcer has been exposed full-thickness tissue. I have informed the patient of the risks and benefit of this procedure and they have had the opportunity to ask questions. Appropriate consent has been obtained. The patient refused site marking. The area was prepped and draped in usual aseptic manner. The procedure was performed and a clean field. I debrided the wound sharply with a sterile #15 blade and necrotic tissue was excised. Bleeding was minimal and hemostasis was achieved using pressure. The patient tolerated procedure and anesthesia well. The patient was educated regarding the signs and symptoms of infection, such as purulent drainage, edema, cellulitis, and significant pain, and to notify healthcare personnel for any of these things occur. Postprocedure no increased pain. Diabetic foot ulcer location: toe Laterality: left Non-pressure ulcer stage: unspecified non-pressure ulcer stage Qualified Code(s): E11.621 - Type 2 diabetes mellitus with foot ulcer; L97.529 - Non-pressure chronic ulcer of other part of left foot with unspecified severity (2) Cellulitis: Laterality: left Site of cellulitis: extremity Site of cellulitis of extremity: lower extremity Qualified Code(s): L03.116 - Cellulitis of left lower limb (3) Cellulitis and abscess of left leg: (4) Sepsis: Acute renal failure type: unspecified Sepsis acute organ dysfunction status: with acute organ dysfunction Sepsis type: sepsis due to unspecified organism Severe sepsis acute organ dysfunction type: acute renal failure Severe sepsis shock status: without septic shock Qualified Code(s): A41.9 - Sepsis, unspecified organism; R65.20 - Severe sepsis without septic shock; N17.9 - Acute kidney failure, unspecified History of Present Illness Attending Physician: Maria Luisa Denney MD Allergies Allergy/AdvReac Type Severity Reaction Status Date / Time piperacillin [From Zosyn] Allergy Severe Fever Verified 09/05/20 15:50 tazobactam [From Zosyn] Allergy Severe Fever Verified 09/05/20 15:50 amoxicillin AdvReac Mild Gastrointestinal Verified 09/05/20 15:50 Upset Home Medications Medication Instructions Recorded Confirmed Type amlodipine 10 mg PO QAM 04/08/19 09/05/20 History atorvastatin 80 mg PO QAM 04/08/19 09/05/20 History alprazolam 1 mg tablet 1 mg PO DAILY PRN 10/14/19 09/05/20 History bupropion HCl 150 mg tablet,12 hr 150 mg PO QAM 10/14/19 09/05/20 History sustained-release pregabalin 100 mg capsule 100 mg PO BID 12/01/19 09/05/20 History multivitamin 1 tab PO QAM 01/04/20 09/05/20 History amitriptyline 25 mg PO HS 01/14/20 09/05/20 History insulin aspart U-100 100 unit/mL 0 unit SUBCUT TIDM ml 03/21/20 09/05/20 History (3 mL) subcutaneous pen icosapent ethyl [Vascepa] 2 g PO BID 04/13/20 09/05/20 History tamsulosin 0.4 mg PO HS #30 cap 04/26/20 09/05/20 Rx insulin glargine 100 unit/mL (3 54 unit SQ BID box 07/31/20 09/05/20 History mL) subcutaneous pen semaglutide 0.5 mg SUBCUT .weekly ml 07/31/20 09/05/20 History acetaminophen [Tylenol 8 Hour] 650 mg PO Q8H PRN #60 tab 08/13/20 09/05/20 Rx calcium acetate(phosphat bind) 667 mg PO TIDM #90 cap 08/13/20 09/05/20 Rx carvedilol 25 mg PO BID #60 tab 08/13/20 09/05/20 Rx ceftriaxone 2 g IV DAILY #5 ea 08/13/20 09/05/20 Rx lisinopril 20 mg tablet 20 mg PO DAILY #90 tab 08/24/20 09/05/20 Rx Patient History Medical History Abnormal CT scan, chest Anemia due to chronic kidney disease Chronic diarrhea reason for colonoscopy Chronic kidney disease, stage 4 (severe) Diabetic nephropathy associated with type 2 diabetes mellitus DM neuropathy, painful DM retinopathy Habitual snoring never had a sleep study test done Hidradenitis suppurativa HTN (hypertension) Hyperlipidemia Kidney stones Morbid obesity with BMI of 45.0-49.9, adult Obesity Proteinuria Uncontrolled type 2 diabetes mellitus Surgical History History of cardiac cath 2014 ?? 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 History of eye surgery left eye multiple before eye removal History of tooth extraction History of wisdom tooth extraction Status post epidural steroid injection Family History Mother No problems noted. 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 Beliefs That Will Affect Care: None marital status: Current Living Situation: Spouse Current Living Situation Comment: Lives with spouse current occupational status: employed Feels Safe at Home: Yes Safety Concerns: Feels Safe At This Time Assistive Devices: Glasses, Oxygen - Continuous and Walker Assistive Devices Comment: prosthetic left eye Review of Systems Review of Systems: All systems reviewed & are unremarkable except as noted in HPI & below Physical Exam Constitutional: well developed and well nourished ENMT: external ear and nose normal, oropharynx normal Neck: trachea midline, no thyromegaly Respiratory: normal respiratory effort Cardiovascular: Rate/Rhythm: regular rate and regular rhythm Psychiatric: Orientation: alert and oriented x 3 Results & Data ([facility]) Vital Signs (Past 12 Hours) Vital Signs Temp Pulse Pulse Resp BP Pulse Ox 09/09/20 16:10 37.1 C 70 17 107/66 95 09/09/20 15:05 92 H 09/09/20 12:23 36.9 C 92 H 20 115/81 93 09/09/20 09:00 89 09/09/20 07:42 36.8 C 95 H 19 129/80 93
[2020-09-09] MEDS ORDERED: COLLAGENASE OINT 30 GM TUBE EXT PRN (18:35)
[2020-09-09] MEDS: AMITRIPTYLINE HCL 25 MG TAB PO SCH (20:55)
[2020-09-09] MEDS: TAMSULOSIN HCL 0.4 MG CAP PO SCH (20:57)
[2020-09-10] MEDS: AMPICILLIN 2,000 MG in SODIUM CHLOR 0.9% AD-VAN 100 ML IV SCH ×3 (04:42→19:58)
[2020-09-10] MEDS: HEPARIN SOD 5,000 UNIT/0.5 ML VIAL SQ SCH ×3 (04:43→20:06)
[2020-09-10 06:42] LABS: Basophils # (auto) 0.02 K/uL (0-0.2); Basophils % (auto) 0.1 %; Eosinophils # (auto) 0.05 K/uL (0-0.5); Eosinophils % (auto) 0.4 %; Hematocrit (blood only) 23.7 % (42-52); Hemoglobin 7.9 g/dL (14.0-18.0); Immature Granulocytes # (auto) 0.33 K/uL (0.00-0.02); Immature Granulocytes % (auto) 2.3 %; Lymphocytes # (auto) 1.85 K/uL (1.2-3.4); Mean Corpuscular Hemoglobin 28.4 pg (25-34); Mean Corpuscular Hgb Conc 33.3 g/dL (32-36); Mean Corpuscular Volume 85.3 fL (80-100); Mean Platelet Volume 11.8 fL (7.4-10.4); Monocytes # (auto) 0.95 K/uL (0.11-0.59); Monocytes % (auto) 6.7 %; Neutrophils # (auto) 11.01 K/uL (1.4-6.5); Neutrophils % (auto) 77.5 %; Platelet Count 247 K/uL (130-400); RDW Coefficient of Variation 14.6 % (11.5-14.5); RDW Standard Deviation 46.1 fL (36.4-46.3); Red Blood Count 2.78 M/uL (4.7-6.1); White Blood Count 14.21 K/uL (4.8-10.8)
[2020-09-10 06:59] LABS: Dohle Bodies 1+
--- NOTE | 2020-09-10 07:14 | Podiatry Consultation ---
Date of Consultation September 09, 2020 Assessment & Plan (1) Diabetic foot ulcer associated with type 2 diabetes mellitus: Reviewed Nephrology note, stage IV CKD secondary to diabetic nephropathy, Renal function worsened rapidly to creatinine 6 On Amoxicillin per ID I examined the patient for an ulcer that has been resistant to healing. Wound cleansed. Factors which likely contribute to non-healing include: lack of adequate off-loading when supine, inadequately controlled infection, lack of adequate off-loading when ambulating, lack of adherence to diabetic footwear, a limited understanding of the disease of diabetes and its processes, lack of adherence to diabetic control measures. Santyl Ordered for bedside. Will apply QD during dressing changes. Thank you for allowing me to participate in the care of this Patient. Diabetic foot ulcer location: toe Laterality: left Non-pressure ulcer stage: unspecified non-pressure ulcer stage Qualified Code(s): E11.621 - Type 2 diabetes mellitus with foot ulcer; L97.529 - Non-pressure chronic ulcer of other part of left foot with unspecified severity (2) Cellulitis: Laterality: left Site of cellulitis: extremity Site of cellulitis of extremity: lower extremity Qualified Code(s): L03.116 - Cellulitis of left lower limb (3) Cellulitis and abscess of left leg: (4) Sepsis: Acute renal failure type: unspecified Sepsis acute organ dysfunction status: with acute organ dysfunction Sepsis type: sepsis due to unspecified organism Severe sepsis acute organ dysfunction type: acute renal failure Severe sepsis shock status: without septic shock Qualified Code(s): A41.9 - Sepsis, unspecified organism; R65.20 - Severe sepsis without septic shock; N17.9 - Acute kidney failure, unspecified History of Present Illness Reason for Consultation: Left foot Ulcer, cellulitis Left LE Attending Physician: Maria Luisa Denney MD History of Present Illness Patient seen at bedside in no acute distress. He was admitted to [facility] for right foot cellulitis and right foot osteomyelitis treated with use of IV abxs successfully. Then in Apr 2020 he was admitted to [facility] for left foot cellulitis with sepsis and again in July 2020. During his stay at [facility] in July 2020 he suddenly went into kidney failure for reasons not fully known. Allergies Allergy/AdvReac Type Severity Reaction Status Date / Time piperacillin [From Zosyn] Allergy Severe Fever Verified 09/05/20 15:50 tazobactam [From Zosyn] Allergy Severe Fever Verified 09/05/20 15:50 amoxicillin AdvReac Mild Gastrointestinal Verified 09/05/20 15:50 Upset Home Medications Medication Instructions Recorded Confirmed Type amlodipine 10 mg PO QAM 04/08/19 09/05/20 History atorvastatin 80 mg PO QAM 04/08/19 09/05/20 History alprazolam 1 mg tablet 1 mg PO DAILY PRN 10/14/19 09/05/20 History bupropion HCl 150 mg tablet,12 hr 150 mg PO QAM 10/14/19 09/05/20 History sustained-release pregabalin 100 mg capsule 100 mg PO BID 12/01/19 09/05/20 History multivitamin 1 tab PO QAM 01/04/20 09/05/20 History amitriptyline 25 mg PO HS 01/14/20 09/05/20 History insulin aspart U-100 100 unit/mL 0 unit SUBCUT TIDM ml 03/21/20 09/05/20 History (3 mL) subcutaneous pen icosapent ethyl [Vascepa] 2 g PO BID 04/13/20 09/05/20 History tamsulosin 0.4 mg PO HS #30 cap 04/26/20 09/05/20 Rx insulin glargine 100 unit/mL (3 54 unit SQ BID box 07/31/20 09/05/20 History mL) subcutaneous pen semaglutide 0.5 mg SUBCUT .weekly ml 07/31/20 09/05/20 History acetaminophen [Tylenol 8 Hour] 650 mg PO Q8H PRN #60 tab 08/13/20 09/05/20 Rx calcium acetate(phosphat bind) 667 mg PO TIDM #90 cap 08/13/20 09/05/20 Rx carvedilol 25 mg PO BID #60 tab 08/13/20 09/05/20 Rx ceftriaxone 2 g IV DAILY #5 ea 08/13/20 09/05/20 Rx lisinopril 20 mg tablet 20 mg PO DAILY #90 tab 08/24/20 09/05/20 Rx Patient History Medical History Abnormal CT scan, chest Anemia due to chronic kidney disease Chronic diarrhea reason for colonoscopy Chronic kidney disease, stage 4 (severe) Diabetic nephropathy associated with type 2 diabetes mellitus DM neuropathy, painful DM retinopathy Habitual snoring never had a sleep study test done Hidradenitis suppurativa HTN (hypertension) Hyperlipidemia Kidney stones Morbid obesity with BMI of 45.0-49.9, adult Obesity Proteinuria Uncontrolled type 2 diabetes mellitus Surgical History History of cardiac cath 2014 ?? 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 History of eye surgery left eye multiple before eye removal History of tooth extraction History of wisdom tooth extraction Status post epidural steroid injection Family History Mother No problems noted. Father , Age 60, [place] Myocardial infarction Unknown Charcot-Ana disease Neuropathy Brother Family history of diabetes mellitus Other No family history of adverse response to anesthesia No significant family history Social History Smoking Status: Never smoker Second Hand Exposure: No; Hx Alcohol Use: No Hx Substance Use: Yes Last Used Substance: Days (ago) Substance Use Type Other:: edibles for neuropathy Preferred Language: [place] Islander Communication Ability: Effective Visual Impairment: No Limitations Rag Collector Required: No Beliefs That Will Affect Care: None marital status: Current Living Situation: Spouse Current Living Situation Comment: Lives with spouse current occupational status: employed Feels Safe at Home: Yes Safety Concerns: Feels Safe At This Time Assistive Devices: Glasses, Oxygen - Continuous and Walker Assistive Devices Comment: prosthetic left eye Review of Systems Review of Systems: All systems reviewed & are unremarkable except as noted in HPI & below Physical Exam Constitutional: well developed and well nourished ENMT: external ear and nose normal, oropharynx normal Neck: trachea midline, no thyromegaly Respiratory: normal respiratory effort Cardiovascular: Rate/Rhythm: regular rate and regular rhythm Psychiatric: Orientation: alert and oriented x 3 Results & Data ([facility]) Vital Signs (Past 12 Hours) Vital Signs Temp Pulse Resp BP BP Pulse Ox 09/10/20 04:16 37.1 C 91 H 18 115/73 91 09/09/20 23:53 36.9 C 91 H 18 109/74 91 09/09/20 19:51 36.8 C 93 H 18 105/73 90 Diagnostic Findings MRI Left foot MR foot LT w/o con CLINICAL HISTORY: Left lateral foot wound. Assess for osteoarthritis. COMPARISON STUDY: Left foot MRI 08/10/2020.. Left foot radiographs August 03, 2020. TECHNIQUE: Utilizing a 1.5 Lyubov magnet and dedicated coil, multiplanar, multi echo imaging of the left forefoot was performed without intravenous contrast. FINDINGS: No significant change in the small wound/skin ulceration along the plantar lateral aspect of the left fifth metatarsal head. There is mild T2 sign al within the adjacent soft tissues suggestive of cellulitis. No fluid collection is identified on this unenhanced exam to suggest an abscess. There is slight marrow edema within the ventral aspect of the left fifth metatarsal head. T1 signal is preserved. There is no MR evidence for osteomyelitis within the left forefoot. Tarsometatarsal joints are intact. Dorsal subcutaneous edema is present. No suspicious osseous lesions are present. No erosions are identified. No masses identified on this unenhanced exam. There is progressive subcutaneous edema along the dorsum of the forefoot has also diffuse increased T2 signal/edema throughout the muscles of the forefoot. This most pronounced within the plantar muscles. This is also similar to the prior study. This could be secondary to a nonspecific myositis or denervation injury. IMPRESSION: 1. No significant change in the focal skin ulceration/wound along the plantar lateral aspect of the left fifth metatarsal head. Mild associated cellulitis with no abscess. 2. Minimal edema within the plantar aspect of the left fifth metatarsal head with preserved T1 signal. This remains unchanged. No MR evidence for osteomyelitis. 3. Progressive dorsal subcutaneous trace edema throughout the forefoot. 4. Diffuse increased T2 signal/edema throughout the muscles of the forefoot most pronounced along the plantar muscles. This is consistent with a nonspecific myositis or denervation injury. This is also similar to the prior study.
[2020-09-10 07:30] LABS: Albumin Level 1.6 gm/dl (3.4-5.0); BUN Creatinine Ratio 10.6 (10-20); Calcium 8.1 mg/dl (8.5-10.1); Creatinine Clr Calc Pharmacy 23.4 ml/min; Est GFR (African American) 11.1 ml/min; Est GFR (Non-African American) 9.5 ml/min; Magnesium 2.7 mg/dl (1.8-2.4); Phosphorus 5.3 mg/dl (2.5-4.9); Potassium 4.5 mmol/L (3.5-5.1)
[2020-09-10] MEDS ORDERED: EPOETIN ALFA 20,000 UNITS/ML VIAL SQ STA (08:51)
[2020-09-10] MEDS ORDERED: INSULIN GLARGINE SOLOSTAR 100 UNITS/ML 3 ML PEN SC SCH ×2 (09:00→21:00)
[2020-09-10] MEDS: INSULIN ASPART 100 UNITS/ML 3 ML PEN SC SCH ×4 (09:10→20:03)
[2020-09-10] MEDS ORDERED: PROPOFOL IV EMULSION 10 MG/ML 20 ML VIAL IV ONE (10:38)
[2020-09-10] MEDS ORDERED: LIDOCAINE 2% 2 ML VIAL/AMP(20MG/ML) INFIL ONE (10:38)
[2020-09-10] MEDS ORDERED: KETAMINE 50 MG/5 ML SYRINGE ONE (10:38)
[2020-09-10] MEDS: CALCIUM ACETATE 667 MG CAP/TAB PO SCH ×3 (10:51→17:42)
[2020-09-10] MEDS: OMEGA-3 (PURIFIED FISH OIL) 1 GM CAP PO SCH ×2 (10:52→20:03)
--- NOTE | 2020-09-10 11:03 | Nephrology Progress Note ---
Date of Service September 10, 2020 Assessment & Plan (1) Acute kidney injury: 40-year-old male with stage IV CKD secondary to diabetic nephropathy, admitted to the hospital with sepsis secondary to strep bacteremia and left lower extremity cellulitis, On ampicillin. Renal function continues to worsen, cr 6.6, electrolyte acceptable. USG with b/l hydro and bladder distension with OROZCO, s/p Preston catheter. Due for MYKE today. Leukocytosis also worsened. 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 -- Repeat renal USG and recommend urology consultation -- Epogen 35803 units x 1 dose today -- left arm nephrology precaution for future vascular access Will follow (2) Sepsis: (3) Cellulitis of left lower extremity: (4) Chronic kidney disease, stage 4 (severe): (5) Hypertension: (6) Bacteremia due to Streptococcus: Admission and Anticipated Discharge Date Admission Date: September 05, 2020 Subjective Scar has been afebrile overnight. Gets SOB with activity or movement but none at rest. Continue sto have decent urine output. Renal function continues to worsen creatinine 6.6, electrolyte acceptable. Has preston catheter in. Review of Systems Review of Systems: All systems reviewed & are unremarkable except as noted in Subjective Physical Exam Constitutional: + ill appearing and + morbidly obese; no acute distress Respiratory: normal respiratory effort, lungs clear to auscultation Cardiovascular: Rate/Rhythm: regular rate and regular rhythm Heart Sounds: normal S1 and normal S2 Extremities: + edema Skin: + rash and + erythema Neurologic: moves all extremities and awake; not confused Psychiatric: A+Ox3, euthymic affect Results & Data ([facility]) Vital Signs (Past 12 Hours) Vital Signs Temp Pulse Pulse Resp BP BP Pulse Ox 09/10/20 10:38 97 09/10/20 08:23 36.6 C 90 21 131/87 90 09/10/20 07:52 36.9 C 90 24 132/86 87 L 09/10/20 07:28 90 09/10/20 04:16 37.1 C 91 H 18 115/73 91 09/09/20 23:53 36.9 C 91 H 18 109/74 91 PG Care Time/CCT Total # of Minutes Spent Total Time Spent with Patient: Total time spent is greater than 50% in coordination of care (as documented) at patient's floor/unit and/or counseling patient: Coding Level of Care Code 37875 Subseq Hosp Care Lvl 3 Diagnoses Acute kidney injury N17.9 Sepsis A41.9 Sepsis acute organ dysfunction status: without acute organ dysfunction Sepsis type: sepsis due to unspecified organism Cellulitis of left lower extremity L03.116 Chronic kidney disease, stage 4 (severe) N18.4 Hypertension I10 Bacteremia due to Streptococcus R78.81; B95.5 (1) Sepsis Sepsis acute organ dysfunction status: without acute organ dysfunction Sepsis type: sepsis due to unspecified organism Qualified Code(s): A41.9 - Sepsis, unspecified organism
--- NOTE | 2020-09-10 11:30 | Post Operative Brief Note ---
Cardiology Brief Post Op Date of Surgery September 10, 2020 Pre & Post Diagnosis Operation Date: 09/10/20 10:45 <No data on this case meets the specified criteria> Procedure MYKE Manager Unix Dionisio Santana MD Eight Arm Operator Daniel Estimated Blood Loss 0 Findings See Below Prelim Review: No vegetation. Complications none
--- NOTE | 2020-09-10 11:34 | Hospitalist Progress Note ---
Date of Service September 10, 2020 Assessment & Plan (1) Sepsis: Lex Manzano is a 40 yo male with PMHx. significant for obesity, uncontrolled T2DM (A1c 8.2 in 07/2020), frequent cellulitis of lower extremities, HLD, CKD IV and UNIQUE. Patient was recently treated for strep bacteremia 2/2 LLE cellulitis in early August. He was admitted to [facility] on 09/05 for sepsis in the setting of another bout of LLE cellulitis. Sepsis 2/2 Group G Strep Bacteremia Unstable vital signs on presentation with elevated WBC 26/CRP 20/ESR 68/Lactate 6.0. Blood cultures growing rondon-sensitive Group G Beta Strep. XR L Fibula/Tibia showing soft tissue edema without bony involvement. Suspect GPC Bacteremia 2/2 LLE Cellulitis. TTE and MYKE both negative for vegetations. Suspect repeat infection secondary to poorly controlled diabetes - continue Ampicillin 2g IV Q8H (renally adjusted) - ID consulted - appreciate recs Pulmonary Edema Persistent supplemental oxygen requirement 3-4L NC, net +15L fluid balance, TTE with low-normal LV systolic function, BNP elevated 1487 and CXR showing new pulmonary edema and trace pleural effusions --> suspect acute on chronic HFrEF. Abdomen pelvis CT obtained 09/10 demonstrated fluid overload with right greater than left pleural effusions, mild generalized body wall edema and trace abdominal ascites, interstitial pulmonary edema with scattered groundglass and consolidative opacities of the lung base suggestive of alveolar pulmonary edema. Concerned worsening renal function is leading to significant fluid accumulation. - supplemental oxygen as needed, wean as tolerated -Patient having significant desaturations overnight -BiPAP if respiratory status worsens -2 mg of Bumex given at 2 PM -We will reassess lung function BJ on CKD IV Unclear baseline Cr but appears to be in 3s, Cr 4.83 on admission, suspect ATN 2/2 bacteremia. However, UOP is less than 0.5mL/kg/min and cannot r/o obstructive pathology without further work-up. CT abdomen pelvis negative for obstructive pathology. -Daily BMP Cr:3.9->4.82->5.2->4.8->5.9->6.6 - Nephro consulted -May need to consider FOOTBALL SCOUT in the next 24 to 48 hours if no improvement renal function -Consult urology -Left arm nephro precautions - renal US ordered to assess for obstruction and other renal pathology -Negative for obstruction - renal med dosing - held home lisinopril for renal insufficiency and decreased dose of Lyrica Constipation -BID miralax Left Foot Ulcer Suspect 2/2 uncontrolled diabetes. - wound care consult - podiatry consult per patient request - continue Lyrica 75mg PO BID - dose adjusted for renal function SVT, resolved Presented to ED with SVT in [id number] but converted to sinus tachycardia without intervention, and HR has improved with abx/IVFs. Suspect 2/2 sepsis. - continue to monitor for changes on tele - continue coreg. Elevated Troponin, resolving Troponin maxed at .084, now .082, suspect Type II NSTEMI due to sepsis. T2DM - A1c 8.2 on 09/06 - Lantus + SSI - pharmacy glycemic consult placed - appreciate recs HTN - resumed home Amlodipine/Carvedilol given improved BPs to 140s/90s and ongoing tachycardia - continue to hold Lisinopril given BJ HLD - Continue Atorvastatin 80mg PO QAM and Vascepa 2g PO BID Depression - continue home Bupropion 150mg PO QAM FEN/GI: DM2 diet, IVFs held given fluid overload DVT Prophylaxis: Heparin 5000 units SQ Q8H Code Status: Full code Disposition: PCU w/ tele PT/OT: ordered Admission and Anticipated Discharge Date Admission Date: September 05, 2020 Supervising Physician Co-Signing Physician Notes I personally examined the patient and verified all sauceda points of history and exam, discussed case, and agree with decision making with Dr Elena. Short of breathworse later in the day. In the morning he notes it mostly whenever he moving. Later in the day far worse, laying flat or with movement. present at the bedside on second evaluation. Updated both to the best of my ability. In general he is awake and alert fatigued but no distress. HEENT normocephalic atraumatic mucous membranes moist. Breathing with markedly diminished air entry bibasilar and a degree of accessory muscle useworse later in the day. No focal neuro deficits. Acute hypoxic respiratory failure/respiratory distress/pulmonary edemaseems to be more related to his acute renal failure superimposed on stage IV CKD, more so than a direct CHF issue, given his echocardiogram. Worrisome situation given his breathing being compromised, as well as his worsening renal failurediscussed with patient and very frankly about the need to preserve breathing, but the risk of further diuresis potentially leading more abruptly to needing hemodialysis depending on the impact on his kidney function. Also discussed BiPAP as a possible bridgeto which he notes he really cannot tolerate it. Both are aware of his situation, and in agreement to proceed with further diuresis. Dr. Fonseca updated on this as well. Cellulitis/diabetic foot infection/sepsis/secondary bacteremiathis all appears to be stabilizing. Continue current care. Uncontrolled type 2 diabetes, morbid obesity with a BMI of 48.6, obstructive sleep apnea/Venous insufficiency/venous stasisdiscussed overall need and plan for lifestyle change. Both in agreement. His is suspicious of an underlying eating disorder/anxiety driving his current lifestylewe discussed cognitive behavioral therapy, as well as evidence-based use of iPhone apps that can be helpful while waiting on appointments with psychology/social work. Otherwise as above. Subjective Initially was called to the patient's room this morning to evaluate the patient for shortness of breath. Patient was lying in bed with worsening shortness of breath. Upon waking and becoming more alert his oxygen saturation improved. I reevaluated the patient approximately 2 hours later, at this point he was sitting upright in the bed breathing comfortably without issue. Patient indicating hypoxia and difficulty sleeping overnight, he does not want to use BiPAP if avoidable. He has been tolerating his diet, however eating less. He reports he has not had a bowel movement in approximately 1 week, Patten in place with urine output. Acute concerns related to kidney function, recurrent infections, and diabetes. All questions answered Physical Exam Physical Exam: General: Sitting up in bed breathing comfortably Cardiac: Regular rate and rhythm I did not appreciate significant murmurs rubs or gallops, normal S1, normal S2, 2+ pedal edema, negative calf tenderness Respiratory: Crackles present at the lung bases bilaterally, did not appreciate any significant wheezes or rales, increased work of breathing while lying flat then improves when sitting up. GI: Distended abdomen, nontender to touch, no rebound, no guarding, bowel sounds present Skin: Left lower extremity erythema, receding from the area previously marked. Edema improving Neuro: Alert and oriented x4 Psych: Calm and cooperative with interview Results & Data Results & Data ([facility]) Vital Signs (Past 12 Hours) Vital Signs Temp Pulse Pulse Resp BP BP Pulse Ox 09/10/20 11:00 95 H 24 160/97 H 95 09/10/20 10:38 97 09/10/20 08:23 36.6 C 90 21 131/87 90 09/10/20 07:52 36.9 C 90 24 132/86 87 L 09/10/20 07:28 90 09/10/20 04:16 37.1 C 91 H 18 115/73 91 09/09/20 23:53 36.9 C 91 H 18 109/74 91 Laboratory Results 09/10/20 09/10/20 09/10/20 Range/Units 07:18 06:11 06:11 WBC 14.21 H (4.8-10.8) K/uL RBC 2.78 L (4.7-6.1) M/uL Hgb 7.9 L (14.0-18.0) g/dL Hct 23.7 L (42-52) % MCV 85.3 (80-100) fL MCH 28.4 (25-34) pg MCHC 33.3 (32-36) g/dL RDW Std Deviation 46.1 (36.4-46.3) fL RDW Coeff of Nicky 14.6 H (11.5-14.5) % Plt Count 247 (130-400) K/uL MPV 11.8 H (7.4-10.4) fL Immature Gran % (Auto) 2.3 % Neut % (Auto) 77.5 % Lymph % (Auto) 13.0 % Stoddard % (Auto) 6.7 % Eos % (Auto) 0.4 % Baso % (Auto) 0.1 % Neut # (Auto) 11.01 H (1.4-6.5) K/uL Lymph # (Auto) 1.85 (1.2-3.4) K/uL Stoddard # (Auto) 0.95 H (0.11-0.59) K/uL Eos # (Auto) 0.05 (0-0.5) K/uL Baso # (Auto) 0.02 (0-0.2) K/uL Immature Gran # (Auto) 0.33 H (0.00-0.02) K/uL Dohle Bodies 1+ Sodium 134 L (136-145) mmol/L Potassium 4.5 (3.5-5.1) mmol/L Chloride 101 (98-107) mmol/L Carbon Dioxide 23 (21-32) mmol/L Anion Gap 10.0 (3-11) BUN 70 H (7-18) mg/dl Creatinine 6.62 H* D (0.6-1.4) mg/dl Est Cr Clr Drug Dosing 23.4 ml/min Est GFR ( Amer) 11.1 ml/min Est GFR (Non-Af Amer) 9.5 ml/min BUN/Creatinine Ratio 10.6 (10-20) Glucose 90 (70-99) mg/dl POC Glucose 139 H (70-99) mg/dl Calcium 8.1 L (8.5-10.1) mg/dl Phosphorus 5.3 H D (2.5-4.9) mg/dl Magnesium 2.7 H (1.8-2.4) mg/dl NT-Pro-B Natriuret Pep (0-450) pg/ml Albumin 1.6 L (3.4-5.0) gm/dl 09/09/20 09/09/20 09/09/20 Range/Units 20:55 16:09 11:03 WBC (4.8-10.8) K/uL RBC (4.7-6.1) M/uL Hgb (14.0-18.0) g/dL Hct (42-52) % MCV (80-100) fL MCH (25-34) pg MCHC (32-36) g/dL RDW Std Deviation (36.4-46.3) fL RDW Coeff of Nicky (11.5-14.5) % Plt Count (130-400) K/uL MPV (7.4-10.4) fL Immature Gran % (Auto) % Neut % (Auto) % Lymph % (Auto) % Stoddard % (Auto) % Eos % (Auto) % Baso % (Auto) % Neut # (Auto) (1.4-6.5) K/uL Lymph # (Auto) (1.2-3.4) K/uL Stoddard # (Auto) (0.11-0.59) K/uL Eos # (Auto) (0-0.5) K/uL Baso # (Auto) (0-0.2) K/uL Immature Gran # (Auto) (0.00-0.02) K/uL Dohle Bodies Sodium (136-145) mmol/L Potassium (3.5-5.1) mmol/L Chloride (98-107) mmol/L Carbon Dioxide (21-32) mmol/L Anion Gap (3-11) BUN (7-18) mg/dl Creatinine (0.6-1.4) mg/dl Est Cr Clr Drug Dosing ml/min Est GFR ( Amer) ml/min Est GFR (Non-Af Amer) ml/min BUN/Creatinine Ratio (10-20) Glucose (70-99) mg/dl POC Glucose 100 H 111 H (70-99) mg/dl Calcium (8.5-10.1) mg/dl Phosphorus (2.5-4.9) mg/dl Magnesium (1.8-2.4) mg/dl NT-Pro-B Natriuret Pep 1487 H (0-450) pg/ml Albumin (3.4-5.0) gm/dl Medications Administered Current Inpatient Medications Acetaminophen (Acetaminophen 325 Mg Tab) 650 mg PO Q4H PRN PRN Reason: Pain or Fever Stop: 10/05/20 20:12 Last Admin: 09/06/20 20:10 Dose: 650 mg Documented by: Amitriptyline HCl (Amitriptyline Hcl 25 Mg Tab) 25 mg PO HS [facility] Stop: 10/05/20 20:59 Last Admin: 09/09/20 20:55 Dose: 25 mg Documented by: Amlodipine Besylate (Amlodipine Besylate 5 Mg Tab) [facility] [place] Stop: 10/06/20 08:59 Last Admin: 09/09/20 08:33 Dose: 10 mg Documented by: Atorvastatin Calcium (Atorvastatin 40 Mg Tab) 80 [facility] [place] Stop: 10/06/20 08:59 Last Admin: 09/09/20 08:33 Dose: 80 mg Documented by: Bupropion HCl (Bupropion Sr 150 Mg Tabcr) 150 mg PO QAM [facility] Stop: 10/06/20 08:59 Last Admin: 09/09/20 08:33 Dose: 150 mg Documented by: Calcium Acetate (Calcium Acetate 667 Mg Cap/Tab) 667 mg PO [facility] [place] Stop: 10/06/20 07:59 Last Admin: 09/10/20 10:51 Dose: Not Given Documented by: Carvedilol (Carvedilol 25 Mg Tab) 25 mg PO BID MELISSA Stop: 10/05/20 20:59 Last Admin: 09/09/20 20:55 Dose: 25 mg Documented by: Collagenase (Collagenase Oint 30 Gm Tube) 1 appln EXT DAILY PRN PRN Reason: Foot ulcer Stop: 10/09/20 18:34 Dextrose (Dextrose 50% 50 Ml Syringe) 25 - 50 ml IV UD PRN; Protocol PRN Reason: Hypoglycemia Protocol Stop: 10/05/20 20:12 Fish Oil ([place]-3 (Purified Fish Oil) 1 Gm Cap) 1 gm PO BID MELISSA; Protocol Stop: 10/06/20 08:59 Last Admin: 09/10/20 10:52 Dose: Not Given Documented by: Glucagon (Glucagon For Inj 1 Mg Vial) 1 mg SQ UD PRN; Protocol PRN Reason: Hypoglycemia Protocol Stop: 10/05/20 20:12 Glucose (Glucose 10 Tabs/Tube) 4 - 8 tabs PO UD PRN; Protocol PRN Reason: Hypoglycemia Protocol Stop: 10/05/20 20:12 Glucose (Glucose 40% Gel 15 Gm Tube) 15 - 30 gm PO UD PRN; Protocol PRN Reason: Hypoglycemia Protocol Stop: 10/05/20 20:12 Heparin Sodium (Porcine) (Heparin Sod 5,000 Unit/0.5 Ml Vial) 5,000 units SQ Q8 MELISSA Stop: 10/05/20 21:59 Last Admin: 09/10/20 04:43 Dose: 5,000 units Documented by: Hydromorphone HCl (Hydromorphone Inj 0.5 Mg/0.5 Ml Syr) 0.25 mg IV Q4H PRN PRN Reason: Pain Stop: 09/21/20 12:46 Last Admin: 09/09/20 22:50 Dose: 0.25 mg Documented by: Parenteral Electrolytes (Normosol-R) 1,000 mls @ 100 mls/hr IV .Q10H [facility] Stop: 10/06/20 10:29 Last Infusion: 09/09/20 12:27 Dose: 0 mls/hr Documented by: Ampicillin Sodium 2,000 mg/ (Sodium Chloride) 100 mls @ 200 mls/hr IV Q8H [facility] Stop: 09/21/20 11:59 Last Infusion: 09/10/20 07:11 Dose: Infused Documented by: Insulin Aspart (Insulin Aspart 100 Units/Ml 3 Ml Pen) 0 units SC ACHS MELISSA Stop: 10/05/20 20:59 Last Admin: 09/10/20 09:10 Dose: Not Given Documented by: Miscellaneous (Carbohydrates For Hypoglycemia ) 15 - 30 gm PO UD PRN PRN Reason: Hypoglycemia Protocol Stop: 10/05/20 20:12 Miscellaneous Information (Pharmacy Glycemic Mgmt Consult) 1 ea N/A UD PRN PRN Reason: Consult Stop: 10/05/20 20:31 Ondansetron HCl (Ondansetron Inj 2 Mg/Ml 2 Ml Vial) 4 mg IV Q6H PRN PRN Reason: Nausea Stop: 10/05/20 20:12 Polyethylene Glycol (Polyethylene (Miralax) 17 Gm Pack) 17 gm PO BID MELISSA Stop: 10/10/20 10:29 Pregabalin (Pregabalin 75 Mg Cap) 75 mg PO BID MELISSA Stop: 10/06/20 08:59 Last Admin: 09/09/20 21:01 Dose: 75 mg Documented by: Tamsulosin HCl (Tamsulosin Hcl 0.4 Mg Cap) 0.4 mg PO HS MELISSA Stop: 10/05/20 20:59 Last Admin: 09/09/20 20:57 Dose: 0.4 mg Documented by: Resident Activity Tracking Resident Involvement: Resident Care Provided Care Provided: Adult Hospital Medicine (1) Sepsis Sepsis acute organ dysfunction status: without acute organ dysfunction Sepsis type: sepsis due to unspecified organism Qualified Code(s): A41.9 - Sepsis, unspecified organism
[2020-09-10] MEDS ORDERED: GLYCOPYRROLATE 0.2 MG/ML VIAL ONE (11:37)
--- NOTE | 2020-09-10 11:51 | Anesthesiology Progress Note ---
Date of Service September 10, 2020 Anesthesia Post Procedure Vital Signs Vital Signs: Temp Pulse Pulse Resp BP BP Pulse Ox 09/10/20 11:45 95 H 24 144/90 H 98 09/10/20 11:30 93 H 26 H 133/83 97 09/10/20 11:00 95 H 24 160/97 H 95 09/10/20 10:38 97 09/10/20 08:23 97.9 F 90 21 131/87 90 09/10/20 07:52 98.4 F 90 24 132/86 87 L 09/10/20 07:28 90 09/10/20 04:16 98.8 F 91 H 18 115/73 91 09/09/20 23:53 98.4 F 91 H 18 109/74 91 09/09/20 19:51 98.2 F 93 H 18 105/73 90 09/09/20 16:10 98.8 F 70 17 107/66 95 09/09/20 15:05 92 H 09/09/20 12:23 98.4 F 92 H 20 115/81 93 Pain Intensity Left Leg: Pain Intensity: 5 Transfer of Care Handoff Completed per policy Notes Mental Status: alert / awake / arousable and participated in evaluation Patient Amnestic to Procedure: Yes Nausea / Vomiting: adequately controlled Pain: adequately controlled Airway Patency, RR, SpO2: stable & adequate BP & HR: stable & adequate Hydration State: stable & adequate Anesthetic Complications: no major complications apparent and Pt Satisfied with anesthetic care
--- NOTE | 2020-09-10 13:30 | Urology Consultation ---
Date of Consultation September 10, 2020 Assessment & Plan (1) Acute kidney injury: (2) Bilateral hydronephrosis: 40 year old male with multiple comorbidities admitted for sepsis secondary to left lower extremity cellulitis, BJ; bilateral hydronephrosis. - Case reviewed with Dr. Sousa, urologist superintendent operations division - Afebrile, lab work reviewed - creatinine increased to 6.62 today, WBC 14.21, Hgb 7.9 - He remains on IV Ampicillin for LLE cellulitis - MICHELE 09/09 showing marked bladder distention, bilateral hydronephrosis - Patten catheter placed on 09/09 - Repeat MICHELE today showed no hydronephrosis - Maintain Patten catheter for bladder decompression and maximum drainage - Continue Tamsulosin - Recommend CTAP without contrast for further evaluation of possible obstruction - Continue supportive care and management per hospital medicine - Will continue with follow with primary service History of Present Illness Reason for Consultation: BJ, Bladder distension, OROZCO, b/l hydro Requesting Physician: Dr. Fonseca Attending Physician: Yasmany Christensen DO History of Present Illness This is a 40 year old male with past medical history of type 2 diabetes, obesity, hyperlipidemia, hypertension, kidney stones, chronic kidney disease, sleep apnea, and BPH w/ LUTS admitted for sepsis secondary to left lower extremity cellulitis, BJ. Patient presented to [facility] ED on 09/05/20 with ill feelings including nausea, vomiting, fever, chills as well as left lower extremity pain. He was febrile on arrival, lab work showed elevated creatinine (3.90), leukocytosis, and elevated lactate at 5.7. He was started on Cefepime and Daptomycin in the ER. He was admitted by hospital medicine for sepsis secondary to left lower extremity cellulitis, BJ. Our service is consulted for BJ, bladder distention, bladder outlet obstruction, bilateral hydronephrosis. Per nursing notes, multiple elevated post void residuals. Patten catheter was placed on 09/09. His creatinine increased today to 6.62. Chart review: Afebrile overnight Creatinine 6.62 (previously 5.96) WBC 14.21 Hgb 7.9 Patten catheter placed on 09/09 Blood cultures - Group G beta strep On IV Ampicillin Imaging - MICHELE 09/09/20 IMPRESSION 1. Severely distended bladder with internal debris suggesting stasis or a cystitis. This could be due to bladder outlet obstruction. Patten catheterization is recommended. 2. Mild fullness within the right renal pelvis and mild left hydronephrosis. This may be secondary to the distended bladder. Patient seen and examined at bedside. He is resting in bed, in no acute distress. Arouses easily, appears drowsy. He had a MYKE earlier today. No abdominal, suprapubic or flank pain. No dysuria or hematuria. Tolerating Patten catheter. Patten intact, patent and draining clear yellow urine, some sediment noted in tubing. No fever or chills. He continues to have redness and swelling of left lower extremity, but he notes some overall improvement since arrival. Denies prior urology evaluation. Reports history of kidney stone in the past. He has been on Tamsulosin since a prior hospitalization per his report. At baseline, he reports some lower urinary tract symptoms including urinary urgency with occasional urinary incontinence, post void dribbling. Feels he empties his bladder most of the time. Notes there are times that he feels he does not need to urinate for a day and then voids large amounts of urine. Denies family hx of prostate, bladder, or kidney cancer. No additional concerns today. Allergies Allergy/AdvReac Type Severity Reaction Status Date / Time piperacillin [From Zosyn] Allergy Severe Fever Verified 09/05/20 15:50 tazobactam [From Zosyn] Allergy Severe Fever Verified 09/05/20 15:50 amoxicillin AdvReac Mild Gastrointestinal Verified 09/05/20 15:50 Upset Home Medications Medication Instructions Recorded Confirmed Type amlodipine 10 mg PO QAM 04/08/19 09/05/20 History atorvastatin 80 mg PO QAM 04/08/19 09/05/20 History alprazolam 1 mg tablet 1 mg PO DAILY PRN 10/14/19 09/05/20 History bupropion HCl 150 mg tablet,12 hr 150 mg PO QAM 10/14/19 09/05/20 History sustained-release pregabalin 100 mg capsule 100 mg PO BID 12/01/19 09/05/20 History multivitamin 1 tab PO QAM 01/04/20 09/05/20 History amitriptyline 25 mg PO HS 01/14/20 09/05/20 History insulin aspart U-100 100 unit/mL 0 unit SUBCUT TIDM ml 03/21/20 09/05/20 History (3 mL) subcutaneous pen icosapent ethyl [Vascepa] 2 g PO BID 04/13/20 09/05/20 History tamsulosin 0.4 mg PO HS #30 cap 04/26/20 09/05/20 Rx insulin glargine 100 unit/mL (3 54 unit SQ BID box 07/31/20 09/05/20 History mL) subcutaneous pen semaglutide 0.5 mg SUBCUT .weekly ml 07/31/20 09/05/20 History acetaminophen [Tylenol 8 Hour] 650 mg PO Q8H PRN #60 tab 08/13/20 09/05/20 Rx calcium acetate(phosphat bind) 667 mg PO TIDM #90 cap 08/13/20 09/05/20 Rx carvedilol 25 mg PO BID #60 tab 08/13/20 09/05/20 Rx ceftriaxone 2 g IV DAILY #5 ea 08/13/20 09/05/20 Rx lisinopril 20 mg tablet 20 mg PO DAILY #90 tab 08/24/20 09/05/20 Rx Patient History Medical History Abnormal CT scan, chest Anemia due to chronic kidney disease Chronic diarrhea reason for colonoscopy Chronic kidney disease, stage 4 (severe) Diabetic nephropathy associated with type 2 diabetes mellitus DM neuropathy, painful DM retinopathy Habitual snoring never had a sleep study test done Hidradenitis suppurativa HTN (hypertension) Hyperlipidemia Kidney stones Morbid obesity with BMI of 45.0-49.9, adult Obesity Proteinuria Uncontrolled type 2 diabetes mellitus Surgical History History of cardiac cath 2014 ?? 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 History of eye surgery left eye multiple before eye removal History of tooth extraction History of wisdom tooth extraction Status post epidural steroid injection Family History Mother No problems noted. Father , Age 60, ID Myocardial infarction Unknown Charcot-Ana disease Neuropathy Brother Family history of diabetes mellitus Other No family history of adverse response to anesthesia No significant family history Social History Smoking Status: Never smoker Second Hand Exposure: No; Hx Alcohol Use: No Hx Substance Use: Yes Last Used Substance: Days (ago) Substance Use Type Other:: edibles for neuropathy Preferred Language: Italian Communication Ability: Effective Visual Impairment: No Limitations Security Tech Required: No Beliefs That Will Affect Care: None marital status: Current Living Situation: Spouse Current Living Situation Comment: Lives with spouse current occupational status: employed Feels Safe at Home: Yes Safety Concerns: Feels Safe At This Time Assistive Devices: Walker Assistive Devices Comment: prosthetic left eye Review of Systems Constitutional: as per Subjective / HPI Eyes: no problem reported Cardiovascular: as per Subjective / HPI Gastrointestinal: as per Subjective / HPI Genitourinary: + as per Subjective / HPI Musculoskeletal: as per Subjective / HPI Integumentary: as per Subjective / HPI Neurologic: no problem reported Psychiatric: no problem reported Physical Exam Constitutional: + morbidly obese and comfortable; no acute distress Respiratory: able to speak in complete sentences; no respiratory distress and no labored breathing oxymask in place Cardiovascular: edema of left lower extremity Gastrointestinal (Abdomen): Inspection/Auscultation: abdomen normal to inspection; abdomen not distended Percussion/Palpation: abdomen soft; abdomen nontender and no guarding Musculoskeletal: Head/Neck/Chest: normocephalic and head atraumatic Skin: erythema of left lower extremity Neurologic: moves all extremities and awake appears drowsy Psychiatric: Orientation: alert, oriented x 3 and cooperative Genitourinary: no CVA tenderness Patten intact, patent, draining clear yellow urine with small amount of sediment in tubing Results & Data ([facility]) Vital Signs (Past 12 Hours) Vital Signs Temp Pulse Pulse Resp BP BP Pulse Ox 09/10/20 11:45 95 H 24 144/90 H 98 09/10/20 11:30 93 H 26 H 133/83 97 09/10/20 11:00 95 H 24 160/97 H 95 09/10/20 10:38 97 09/10/20 08:23 36.6 C 90 21 131/87 90 09/10/20 07:52 36.9 C 90 24 132/86 87 L 09/10/20 07:28 90 09/10/20 04:16 37.1 C 91 H 18 115/73 91 PG Care Time/CCT Total # of Minutes Spent Total Time Spent with Patient: Total time spent is greater than 50% in coordination of care (as documented) at patient's floor/unit and/or counseling patient: Coding Level of Care Code 09460 Inpt Consult Level 4 Diagnoses Acute kidney injury N17.9 Bilateral hydronephrosis N13.30
--- NOTE | 2020-09-10 14:08 | Ultrasound Report ---
US renal/blad retro comp HISTORY: 40 years-old Male BJ, f/u OROZCO, b/l ? hydro acute kidney injury COMPARISON: Renal ultrasound 09/09/2020 TECHNIQUE: Multiple real-time sonographic images of the kidneys and urinary bladder were obtained ass essing grayscale appearance and color flow FINDINGS: Limited exam secondary to patient body habitus. The right kidney measures 13.2 x 6.7 x 7.2 cm. No right-sided renal calculi, hydronephrosis or suspic ious mass lesion. Left kidney measures 11.7 x 7.4 x 7.1 cm. No left-sided renal calculi, hydronephrosis or suspicious m ass lesion. Decompressed urinary bladder with Patten catheter. IMPRESSION: Unremarkable renal ultrasound. ACT 112: Negative or not required by law. The above report was generated using voice recognition software. It may contain grammatical, syntax o r spelling errors. Electronically signed by: Vaibhav Pichardo M.D. 09/10/2020 2:06 PM
--- NOTE | 2020-09-10 14:13 | XCELERA ---
[id number] \\[id number]_[id number]}___[id number]
--- NOTE | 2020-09-10 14:20 | CT Scan Report ---
ABDOMEN AND PELVIS CT WITHOUT CONTRAST CT DOSE: 2392.58 mGy.cm HISTORY: Follow up study in a patient with history of hydronephrosis bilateral hydronephrosis TECHNIQUE: Multiaxial CT images of the abdomen and pelvis were performed without contrast. A dose lo wering technique was utilized adhering to the principles of ALARA. COMPARISON STUDY: Renal ultrasound 09/10/2020, CT abdomen and pelvis 01/11/2020 FINDINGS: Motion degraded exam. Small left and small to moderate right pleural effusions. Dependent b ibasilar consolidation. Intralobular septal thickening with intermixed groundglass and consolidative opacities are partially imaged. Coronary artery calcifications. Imaged inferior cardiac chambers are otherwise unremarkable. There is no pneumatosis or pneumoperitoneum. Unremarkable spleen, pancreas and adrenal glands. Cholec ystectomy. Hepatomegaly with hepatic steatosis. No evidence of cirrhosis. Trace perihepatic ascites. Mild nonspecific perinephric stranding. No renal or ureteral calculi or hydronephrosis.. Decompressed urinary bladder with wall thickening. A Patten catheter is present. Calcifications of the vas deferen s. Unremarkable aorta and IVC. Nonspecific prominent and mildly enlarged inguinal chain lymph nodes m easure up to 12 mm on the left and 9 mm on the right. No bowel obstruction or bowel wall thickening. Normal appendix. Mild generalized body wall edema. Degenerative changes of the spine. Tiny sclerotic foci of the proximal femora are suggestive of probable bone islands. Mild lumbar levoscoliosis. IMPRESSION: 1. No bowel obstruction or bowel wall thickening. Normal appendix. 2. No renal or ureteral calculi or hydronephrosis. 3. Fluid overload with right greater than left pleural effusions, mild generalized body wall edema an d trace abdominal ascites. 4. Interstitial pulmonary edema with scattered groundglass and consolidative opacities of the lung ba ses suggestive of alveolar pulmonary edema versus pneumonia. 5. Hepatomegaly with hepatic steatosis. ACT 112: Negative or not required by law. The above report was generated using voice recognition software. It may contain grammatical, syntax o r spelling errors. Electronically signed by: Vaibhav Pichardo M.D. 09/10/2020 2:18 PM
[2020-09-10] MEDS: carvediloL 25 MG TAB PO SCH ×2 (14:30→20:02)
--- NOTE | 2020-09-10 14:36 | Pharmacy Report ---
Pharmacy Glycemic Short Note 2 - Date of Service September 10, 2020 - Glycemic Short BSG Results (Last 24 hours): 09/09/20 09/09/20 09/10/20 16:09 20:55 06:11 Glucose 90 POC Glucose 111 H 100 H 09/10/20 09/10/20 07:18 12:34 Glucose POC Glucose 139 H 102 H OUTPATIENT ANTIDIABETIC REGIMEN: * Basaglar (insulin glargine) 54 units SQ BID * NovoLog TIDM (up to 100 units/day) * Ozempic * A1c = 8.2% on 08/04/20 ASSESSMENT: 09/10: * Patient received total of 101 units of insulin yesterday, of which 54 units were basal insulin * Fasting BSG 90 mg/dL - patient NPO for possible MYKE - reduced basal by ~40% this AM * May add scale for basal at HS if diet resumed and BSGs trending upward 09/09: * Lex received a total of 118 units of insulin yesterday * 54 units basal + 64 units bolus * BSGs were acceptable: [phone] mg/dL * Fasting BSG was controlled at 116 mg/dL this AM * No changes necessary to insulin regimen PLAN FOR INPATIENT GLYCEMIC CONTROL: * Basal insulin * Lantus 30 x 1 (NPO status) * Lantus 0-15 units HS * Bolus insulin * NovoLog per scale ACHS or Q6hrs while NPO * Goal Range: Low 110 mg/dL - High 140 mg/dL * Correction Factor: 10 mg/dL/unit * Nutritional / Prandial insulin per carb ratio of 1 unit per 3 grams CHO consumed PLAN FOR DISCHARGE: * TBD based on A1c
[2020-09-10] MEDS: PREGABALIN 75 MG CAP PO SCH ×2 (14:49→20:10)
[2020-09-10] MEDS: buPROPion SR 150 MG TABCR PO SCH (14:49)
[2020-09-10] MEDS: ATORVASTATIN 40 MG TAB PO SCH (14:50)
[2020-09-10] MEDS: amLODIPine BESYLATE 5 MG TAB PO SCH (14:50)
[2020-09-10] MEDS: POLYETHYLENE (MIRALAX) 17 GM PACK PO SCH ×2 (14:51→20:05)
[2020-09-10] MEDS: ACETAMINOPHEN 325 MG TAB PO PRN (14:56)
[2020-09-10] MEDS ORDERED: BUMETANIDE 2 MG in SYRINGE 0 ML IV ONE (15:30)
--- NOTE | 2020-09-10 17:16 | Billing Data ---
Date of Service September 10, 2020 Coding Level of Care Code 21608 Subseq Hosp Care Lvl 3
[2020-09-10] MEDS: AMITRIPTYLINE HCL 25 MG TAB PO SCH (20:02)
[2020-09-10] MEDS: TAMSULOSIN HCL 0.4 MG CAP PO SCH (20:05)
[2020-09-11] MEDS: ACETAMINOPHEN 325 MG TAB PO PRN (00:20)
[2020-09-11] MEDS: AMPICILLIN 2,000 MG in SODIUM CHLOR 0.9% AD-VAN 100 ML IV SCH ×3 (04:23→19:53)
[2020-09-11] MEDS: HEPARIN SOD 5,000 UNIT/0.5 ML VIAL SQ SCH ×3 (04:24→19:57)
[2020-09-11 06:25] LABS: Hematocrit (blood only) 24.4 % (42-52); Hemoglobin 8.1 g/dL (14.0-18.0); Mean Corpuscular Hemoglobin 27.7 pg (25-34); Mean Corpuscular Hgb Conc 33.2 g/dL (32-36); Mean Corpuscular Volume 83.6 fL (80-100); Mean Platelet Volume 11.4 fL (7.4-10.4); Platelet Count 301 K/uL (130-400); RDW Coefficient of Variation 14.8 % (11.5-14.5); RDW Standard Deviation 44.8 fL (36.4-46.3); Red Blood Count 2.92 M/uL (4.7-6.1); White Blood Count 15.44 K/uL (4.8-10.8)
[2020-09-11 07:19] LABS: Albumin Level 1.6 gm/dl (3.4-5.0); BUN Creatinine Ratio 11.1 (10-20); Calcium 8.4 mg/dl (8.5-10.1); Creatinine Clr Calc Pharmacy 22.7 ml/min; Est GFR (African American) 10.7 ml/min; Est GFR (Non-African American) 9.3 ml/min; Phosphorus 5.6 mg/dl (2.5-4.9); Potassium 4.4 mmol/L (3.5-5.1)
[2020-09-11] MEDS: INSULIN ASPART 100 UNITS/ML 3 ML PEN SC SCH ×4 (08:46→19:55)
[2020-09-11] MEDS: ATORVASTATIN 40 MG TAB PO SCH (08:48)
[2020-09-11] MEDS: PREGABALIN 75 MG CAP PO SCH ×2 (08:48→20:00)
[2020-09-11] MEDS: amLODIPine BESYLATE 5 MG TAB PO SCH (08:49)
[2020-09-11] MEDS: buPROPion SR 150 MG TABCR PO SCH (08:49)
[2020-09-11] MEDS: CALCIUM ACETATE 667 MG CAP/TAB PO SCH ×3 (08:49→16:56)
[2020-09-11] MEDS: OMEGA-3 (PURIFIED FISH OIL) 1 GM CAP PO SCH ×2 (08:49→19:53)
[2020-09-11] MEDS: carvediloL 25 MG TAB PO SCH ×2 (08:50→19:54)
[2020-09-11] MEDS: POLYETHYLENE (MIRALAX) 17 GM PACK PO SCH ×2 (08:50→19:55)
[2020-09-11] MEDS ORDERED: INSULIN GLARGINE SOLOSTAR 100 UNITS/ML 3 ML PEN SC SCH (09:00)
--- NOTE | 2020-09-11 10:16 | Nephrology Progress Note ---
Date of Service September 11, 2020 Assessment & Plan (1) Acute kidney injury: 40-year-old male with stage IV CKD secondary to diabetic nephropathy, admitted to the hospital with sepsis secondary to strep bacteremia and left lower extremity cellulitis, On ampicillin. Renal function continues to worsen, cr 6.8, electrolyte acceptable. MYKE with no vegetation. Leukocytosis also worsened. Repeat USG and CT A/P showed bladder distension resolved and no hydro. -- hold off of [employer] now as he is feeling slightly better, making urine. Will keep NPO overnight in case he needs TDC and [employer] tomorrow. --Bumex 2 mg iv x 1 dose now -- Epogen 97605 units x 1 dose given on 09/10/20. -- left arm nephrology precaution for future vascular access Will follow (2) Sepsis: (3) Cellulitis of left lower extremity: (4) Chronic kidney disease, stage 4 (severe): (5) Hypertension: (6) Bacteremia due to Streptococcus: Admission and Anticipated Discharge Date Admission Date: September 05, 2020 Subjective Scar feeling slightly better today,SOB slightly improved. Continues to have decent urine output with diuretics, >2 L net negative. Renal function continues to worsen creatinine 6.8 but electrolyte acceptable. Has preston catheter in. Review of Systems Review of Systems: All systems reviewed & are unremarkable except as noted in Subjective Physical Exam Constitutional: + ill appearing and + morbidly obese; no acute distress Respiratory: normal respiratory effort, lungs clear to auscultation normal respiratory effort and + respiratory distress Auscultation: + diminished lung sounds and + rales Cardiovascular: Rate/Rhythm: regular rate and regular rhythm Heart Sounds: normal S1 and normal S2 Extremities: + edema Skin: + rash and + erythema Neurologic: moves all extremities and awake; not confused Psychiatric: A+Ox3, euthymic affect Results & Data ([facility]) Vital Signs (Past 12 Hours) Vital Signs Temp Pulse Pulse Resp BP BP Pulse Ox 09/11/20 07:06 36.4 C L 85 17 152/88 H 94 09/11/20 04:30 36.5 C 86 20 134/82 94 09/10/20 23:25 36.6 C 90 26 H 115/70 94 PG Care Time/CCT Total # of Minutes Spent Total Time Spent with Patient: Total time spent is greater than 50% in coordination of care (as documented) at patient's floor/unit and/or counseling patient: Coding Level of Care Code 38510 Subseq Hosp Care Lvl 3 Diagnoses Acute kidney injury N17.9 Sepsis A41.9 Sepsis acute organ dysfunction status: without acute organ dysfunction Sepsis type: sepsis due to unspecified organism Cellulitis of left lower extremity L03.116 Chronic kidney disease, stage 4 (severe) N18.4 Hypertension I10 Bacteremia due to Streptococcus R78.81; B95.5 (1) Sepsis Sepsis acute organ dysfunction status: without acute organ dysfunction Sepsis type: sepsis due to unspecified organism Qualified Code(s): A41.9 - Sepsis, unspecified organism
[2020-09-11] MEDS ORDERED: BUMETANIDE 2 MG in SYRINGE 0 ML IV ONE (10:45)
--- NOTE | 2020-09-11 11:40 | Urology Progress Note ---
Date of Service September 11, 2020 Assessment & Plan (1) Acute kidney injury: (2) Bilateral hydronephrosis: 40 year old male with multiple comorbidities admitted for sepsis secondary to left lower extremity cellulitis, BJ, bilateral hydronephrosis. - Plan of care reviewed with Dr. Rico, on-call urologist. - Remains afebrile. - Lab work reviewed, WBC 15.44, Hgb 8.1. Creatinine increased to 6.78 today - Nephrology following, possible FACULTY HEAD tomorrow. - He remains on IV Ampicillin for LLE cellulitis. - CTAP yesterday with no further evidence of obstruction. - No acute intervention warranted at this time. - Maintain Patten catheter for bladder decompression and maximum drainage. - Continue Tamsulosin. - Continue supportive care and management per hospital medicine. - Will arrange outpatient follow-up with urology service. Thank you for allowing us to participate in the acute care of Mr. Manzano. Please reconsult us with additional questions, concerns or changes in patient status. Admission and Anticipated Discharge Date Admission Date: September 05, 2020 Subjective Pt examined at bedside this AM. Awake, resting in bed on arrival. No abdominal, suprapubic or flank pain. No dysuria or hematuria. Tolerating Patten catheter. Patten intact, patent and draining clear yellow urine. No fever or chills. He continues to have redness and swelling of left lower extremity, but he notes some overall improvement since arrival. He reports LBM was 6 days ago. Review of Systems Constitutional: as per Subjective / HPI Gastrointestinal: as per Subjective / HPI Genitourinary: + as per Subjective / HPI Physical Exam Constitutional: + morbidly obese and comfortable; no acute distress Respiratory: able to speak in complete sentences oxymask in place Cardiovascular: edema of left lower extremity Gastrointestinal (Abdomen): Percussion/Palpation: abdomen soft; abdomen nontender and no guarding Musculoskeletal: Head/Neck/Chest: normocephalic Skin: erythema of left lower extremity Neurologic: awake Psychiatric: Orientation: alert, oriented x 3 and cooperative Genitourinary: no CVA tenderness Patten intact, patent, draining clear yellow urine Results & Data ([facility]) Vital Signs (Past 12 Hours) Vital Signs Temp Pulse Resp BP Pulse Ox 09/11/20 07:06 36.4 C L 85 17 152/88 H 94 09/11/20 04:30 36.5 C 86 20 134/82 94 PG Care Time/CCT Total # of Minutes Spent Total Time Spent with Patient: Total time spent is greater than 50% in coordination of care (as documented) at patient's floor/unit and/or counseling patient: Coding Level of Care Code 67215 Subseq Hosp Care Lvl 2 Diagnoses Acute kidney injury N17.9 Bilateral hydronephrosis N13.30
--- NOTE | 2020-09-11 14:28 | Pharmacy Report ---
Pharmacy Glycemic Short Note 2 - Date of Service September 11, 2020 - Glycemic Short BSG Results (Last 24 hours): 09/10/20 09/10/20 09/10/20 16:03 19:57 20:32 Glucose POC Glucose 127 H 112 H 106 H 09/11/20 09/11/20 09/11/20 05:58 07:15 11:25 Glucose 118 H POC Glucose 128 H 178 H OUTPATIENT ANTIDIABETIC REGIMEN: * Basaglar (insulin glargine) 54 units SQ BID * NovoLog TIDM (up to 100 units/day) * Ozempic * A1c = 8.2% on 08/04/20 ASSESSMENT: 09/11: * Patient received total of 48 units of insulin yesterday, of which 30 units were basal. He was NPO for most of day * Fasting BSG 128 mg/dL - will titrate up basal insulin carefully as Scr continues to trend upward. His fasting BSGs had been trending down on 54 units daily of Lantus, therefore feel that we should scale back * Will give 40 units Lantus this AM, may add scale for HS if trending upward 09/10: * Patient received total of 101 units of insulin yesterday, of which 54 units were basal insulin * Fasting BSG 90 mg/dL - patient NPO for possible MYKE - reduced basal by ~40% this AM * May add scale for basal at HS if diet resumed and BSGs trending upward 09/09: * Lex received a total of 118 units of insulin yesterday * 54 units basal + 64 units bolus * BSGs were acceptable: [phone] mg/dL * Fasting BSG was controlled at 116 mg/dL this AM * No changes necessary to insulin regimen PLAN FOR INPATIENT GLYCEMIC CONTROL: * Basal insulin * Lantus 40 x 1 * Lantus 0-10 units HS * Bolus insulin * NovoLog per scale ACHS or Q6hrs while NPO * Goal Range: Low 110 mg/dL - High 140 mg/dL * Correction Factor: 10 mg/dL/unit * Nutritional / Prandial insulin per carb ratio of 1 unit per 3 grams CHO consumed PLAN FOR DISCHARGE: * A1c 8.2% - goal for patient <7% * Plan of care will depend on if there is improvement in renal function or if dialysis is started. Will continue to follow trends to determine insulin needs.
--- NOTE | 2020-09-11 16:51 | Medical Student Progress Note ---
Date of Service September 11, 2020 Assessment & Plan (1) Cellulitis: Lex Manzano is a 40 yo male with PMHx. significant for obesity, uncontrolled T2DM (A1c 8.2 in 07/2020), frequent cellulitis of lower extremities, HLD, CKD IV and UNIQUE. Patient was recently treated for strep bacteremia 2/2 LLE cellulitis in early August. He was admitted to [facility] on 09/05 for sepsis in the setting of another bout of LLE cellulitis. Sepsis 2/2 Group G Strep Bacteremia Unstable vital signs on presentation with elevated WBC 26/CRP 20/ESR 68/Lactate 6.0. Blood cultures growing rondon-sensitive Group G Beta Strep. XR L Fibula/Tibia showing soft tissue edema without bony involvement. Suspect GPC Bacteremia 2/2 LLE Cellulitis. TTE and MYKE both negative for vegetations. Suspect repeat infection secondary to poorly controlled diabetes - continue Ampicillin 2g IV Q8H (renally adjusted) - ID consulted - appreciate recs Pulmonary Edema Persistent supplemental oxygen requirement 3-4L NC, net +15L fluid balance, TTE with low-normal LV systolic function, BNP elevated 1487 and CXR showing new pulmonary edema and trace pleural effusions --> suspect acute on chronic HFrEF. Abdomen pelvis CT obtained 09/10 demonstrated fluid overload with right greater than left pleural effusions, mild generalized body wall edema and trace abdominal ascites, interstitial pulmonary edema with scattered groundglass and consolidative opacities of the lung base suggestive of alveolar pulmonary edema. Concerned worsening renal function is leading to significant fluid accumulation. - supplemental oxygen as needed, wean as tolerated -BiPAP if respiratory status worsens -2 mg of Bumex given 09/10 -We will reassess lung function BJ on CKD IV Unclear baseline Cr but appears to be in 3s, Cr 4.83 on admission, suspect ATN 2/2 bacteremia. However, UOP is less than 0.5mL/kg/min and cannot r/o obstructive pathology without further work-up. CT abdomen pelvis negative for obstructive pathology. -Daily BMP Cr:3.9->4.82->5.2->4.8->5.9->6.6->6.78 - Nephro consulted -May need to consider [employer] in the next 24 to 48 hours if no improvement renal function -Consult urology -Left arm nephro precautions - renal US ordered to assess for obstruction and other renal pathology -Negative for obstruction - renal med dosing - held home lisinopril for renal insufficiency and decreased dose of Lyrica Constipation -BID miralax Left Foot Ulcer Suspect 2/2 uncontrolled diabetes. - wound care consult - podiatry consult per patient request - continue Lyrica 75mg PO BID - dose adjusted for renal function SVT, resolved Presented to ED with SVT in SH341e but converted to sinus tachycardia without intervention, and HR has improved with abx/IVFs. Suspect 2/2 sepsis. - continue to monitor for changes on tele - continue coreg. Elevated Troponin, resolved Troponin maxed at .084,suspect Type II NSTEMI due to sepsis. T2DM - A1c 8.2 on 09/06 - Lantus + SSI - pharmacy glycemic consult placed - appreciate recs HTN - resumed home Amlodipine/Carvedilol given improved BPs to 140s/90s and ongoing tachycardia - continue to hold Lisinopril given BJ HLD - Continue Atorvastatin 80mg PO QAM and Vascepa 2g PO BID Depression - continue home Bupropion 150mg PO QAM FEN/GI: DM2 diet, IVFs held given fluid overload DVT Prophylaxis: Heparin 5000 units SQ Q8H Code Status: Full code Disposition: PCU w/ tele PT/OT: ordered Laterality: left Site of cellulitis: extremity Site of cellulitis of extremity: lower extremity Qualified Code(s): L03.116 - Cellulitis of left lower limb Admission and Anticipated Discharge Date Admission Date: September 05, 2020 Supervising Attestation I personally examined the patient and verified all sauceda points of history and exam, discussed case, and agree with decision making with Yusef Watkins MS4 Breathing is considerably better than yesterday. Less short of breath. Leg feels overall better. Feels very tired but overall improved. Vitals noted, in general he is awake and alert pleasant no distressvery fatigued appearing. HEENT normocephalic atraumatic mucous members moist. Breathing unlabored no accessory muscle use good effort. Skin shows resolving appearing erythema on his left leg well below the outlined area. No focal neuro deficits. Acute hypoxic respiratory failure/respiratory distress/pulmonary edemaseems to be more related to his acute renal failure superimposed on stage IV CKD, more so than a direct CHF issue, given his echocardiogram. While his creatinine has continued to rise, at least fortunately his breathing has been temporized with diuresis. Agree that we will likely need to move forward with dialysis in the near future given his tenuous volume status. Continue to follow closely. Cellulitis/diabetic foot infection/sepsis/secondary bacteremiathis all appears to be stabilizing. Continue current care with anticipated prolonged course of IV antibiotics Uncontrolled type 2 diabetes, morbid obesity with a BMI of 48.6, obstructive sleep apnea/Venous insufficiency/venous stasiscontinued with discussion of overall need and plan for lifestyle change. Today he was most receptive to talk about treating sleep apneahe notes that in the hospital BiPAP is very difficultbut he relates that he thinks is much of it is the environment (high stress/unfamiliar) as well as not being able to try different types of masks, more so than that he would never be able to grow accustomed to BiPAP. Continue to discuss/work on lifestyle change. Diabetes reasonably easy to control in house. Otherwise as above. Subjective Currently on 7L O2. Denies shortness of breath. Cellulitis pain is improved. Reports that he has not had a BM in 7 days. Denies fever/chills, abdominal pain, and chest pain. Review of Systems Review of Systems: All systems reviewed & are unremarkable except as noted in HPI & below Physical Exam Physical Exam: GENERAL: nad HEENT: conjunctiva without injection b/l, external nose and pinna are normal CHEST: cta bilaterally with no wheezes, rhonchi or rales, normal respiratory effort CARDIOVASCULAR: heart regular rate and rhythm, no murmurs, gallops or rubs, 2+ lower extremity edema ABD: nontender to palpation, soft, distended, normal active bowel sounds SKIN: no rashes or suspicious lesions noted NEURO: PERRLA Results & Data ([facility]) Vital Signs (Past 12 Hours) Vital Signs Temp Pulse Resp BP BP Pulse Ox 09/11/20 15:00 36.6 C 88 21 148/77 H 96 09/11/20 11:55 36.5 C 88 20 139/83 91 09/11/20 07:06 36.4 C L 85 17 152/88 H 94
--- NOTE | 2020-09-11 18:33 | Billing Data ---
Date of Service September 11, 2020 Coding Level of Care Code 80349 Subseq Hosp Care Lvl 3
[2020-09-11] MEDS: AMITRIPTYLINE HCL 25 MG TAB PO SCH (19:54)
[2020-09-11] MEDS: TAMSULOSIN HCL 0.4 MG CAP PO SCH (19:56)
[2020-09-11] MEDS: INSULIN GLARGINE SOLOSTAR 100 UNITS/ML 3 ML PEN SC SCH (19:56)
[2020-09-12] MEDS: AMPICILLIN 2,000 MG in SODIUM CHLOR 0.9% AD-VAN 100 ML IV SCH ×3 (05:27→19:55)
[2020-09-12] MEDS: HEPARIN SOD 5,000 UNIT/0.5 ML VIAL SQ SCH ×3 (05:27→21:49)
[2020-09-12 06:05] LABS: Hematocrit (blood only) 25.1 % (42-52); Hemoglobin 8.2 g/dL (14.0-18.0); Mean Corpuscular Hemoglobin 28.3 pg (25-34); Mean Corpuscular Hgb Conc 32.7 g/dL (32-36); Mean Corpuscular Volume 86.6 fL (80-100); Mean Platelet Volume 11.8 fL (7.4-10.4); Nucleated RBC # (auto) 0.03 K/uL (0-0); Nucleated RBC % (auto) 0.2 %; Platelet Count 330 K/uL (130-400); RDW Coefficient of Variation 14.8 % (11.5-14.5); RDW Standard Deviation 47.2 fL (36.4-46.3); White Blood Count 14.32 K/uL (4.8-10.8)
[2020-09-12 06:30] LABS: Basophils # (auto) 0.04 K/uL (0-0.2); Basophils % (auto) 0.3 %; Eosinophils # (auto) 0.12 K/uL (0-0.5); Eosinophils % (auto) 0.8 %; Immature Granulocytes # (auto) 1.06 K/uL (0.00-0.02); Immature Granulocytes % (auto) 7.4 %; Lymphocytes # (auto) 2.25 K/uL (1.2-3.4); Lymphocytes % (auto) 15.7 %; Monocytes # (auto) 1.04 K/uL (0.11-0.59); Monocytes % (auto) 7.3 %; Neutrophils # (auto) 9.81 K/uL (1.4-6.5); Neutrophils % (auto) 68.5 %
[2020-09-12 06:42] LABS: Albumin Level 1.7 gm/dl (3.4-5.0); BUN Creatinine Ratio 12.2 (10-20); Calcium 8.2 mg/dl (8.5-10.1); Creatinine Clr Calc Pharmacy 23.4 ml/min; Est GFR (African American) 11.1 ml/min; Est GFR (Non-African American) 9.6 ml/min; Phosphorus 5.8 mg/dl (2.5-4.9); Potassium 4.5 mmol/L (3.5-5.1)
[2020-09-12] MEDS: amLODIPine BESYLATE 5 MG TAB PO SCH (08:20)
[2020-09-12] MEDS: INSULIN ASPART 100 UNITS/ML 3 ML PEN SC SCH ×4 (08:20→21:49)
[2020-09-12] MEDS: CALCIUM ACETATE 667 MG CAP/TAB PO SCH ×3 (08:21→17:16)
[2020-09-12] MEDS: carvediloL 25 MG TAB PO SCH ×2 (08:21→20:19)
[2020-09-12] MEDS: buPROPion SR 150 MG TABCR PO SCH (08:21)
[2020-09-12] MEDS: ATORVASTATIN 40 MG TAB PO SCH (08:21)
[2020-09-12] MEDS: OMEGA-3 (PURIFIED FISH OIL) 1 GM CAP PO SCH ×2 (08:22→20:20)
[2020-09-12] MEDS: INSULIN GLARGINE SOLOSTAR 100 UNITS/ML 3 ML PEN SC SCH ×2 (08:22→21:50)
[2020-09-12] MEDS: POLYETHYLENE (MIRALAX) 17 GM PACK PO SCH ×2 (08:24→20:17)
[2020-09-12] MEDS: PREGABALIN 75 MG CAP PO SCH ×2 (08:25→20:18)
--- NOTE | 2020-09-12 09:09 | Medical Student Progress Note ---
Date of Service September 12, 2020 Assessment & Plan (1) Cellulitis: Lex Manzano is a 40 yo male with PMHx. significant for obesity, uncontrolled T2DM (A1c 8.2 in 07/2020), frequent cellulitis of lower extremities, HLD, CKD IV and UNIQUE. Patient was recently treated for strep bacteremia 2/2 LLE cellulitis in early August. He was admitted to [facility] on 09/05 for sepsis in the setting of another bout of LLE cellulitis. LLE Cellulitis w/ resolved sepsis 2/2 Group G Strep Bacteremia Unstable vital signs on presentation with elevated WBC 26/CRP 20/ESR 68/Lactate 6.0. Blood cultures growing rondon-sensitive Group G Beta Strep. XR L Fibula/Tibia showing soft tissue edema without bony involvement. Suspect GPC Bacteremia 2/2 LLE Cellulitis. TTE and MYKE both negative for vegetations. Suspect repeat infection secondary to poorly controlled diabetes - continue Ampicillin 2g IV Q8H (renally adjusted) - ID consulted - appreciate recs Pulmonary Edema Persistent supplemental oxygen requirement 3-7L, TTE with low-normal LV systolic function, BNP elevated 1487 and CXR showing new pulmonary edema and trace pleural effusions --> suspect acute on chronic HFrEF. Abdomen pelvis CT obtained 09/10 demonstrated fluid overload with right greater than left pleural effusions, mild generalized body wall edema and trace abdominal ascites, interstitial pulmonary edema with scattered groundglass and consolidative opacities of the lung base suggestive of alveolar pulmonary edema. Concerned worsening renal function is leading to significant fluid accumulation. - supplemental oxygen as needed, wean as tolerated -BiPAP if respiratory status worsens -2 mg of Bumex given 09/10 -Clinically improving but will continue to assess BJ on CKD IV Unclear baseline Cr but appears to be in 3s, Cr 4.83 on admission, suspect ATN 2/2 bacteremia. However, UOP is less than 0.5mL/kg/min and cannot r/o obstructive pathology without further work-up. CT abdomen pelvis negative for obstructive pathology. -Daily BMP Cr:3.9->4.82->5.2->4.8->5.9->6.6->6.78->6.6 - Nephro consulted -May need to consider ROTARY FURNACE TENDER in the next 24 to 48 hours if no improvement renal function - renal US negative for obstruction - renal med dosing - held home lisinopril for renal insufficiency and decreased dose of Lyrica Constipation -BID miralax Left Foot Ulcer Suspect 2/2 uncontrolled diabetes. - wound care consult - podiatry consult per patient request - continue Lyrica 75mg PO BID - dose adjusted for renal function SVT, resolved Presented to ED with SVT in [id number] but converted to sinus tachycardia without intervention, and HR has improved with abx/IVFs. Suspect 2/2 sepsis. - continue to monitor for changes on tele - continue coreg. Elevated Troponin,RESOLVED Troponin maxed at .084,suspect Type II NSTEMI due to sepsis. T2DM - A1c 8.2 on 09/06 - Lantus + SSI - pharmacy glycemic consult placed - appreciate recs HTN - resumed home Amlodipine/Carvedilol given improved BPs to 140s/90s and ongoing tachycardia - continue to hold Lisinopril given BJ HLD - Continue Atorvastatin 80mg PO QAM and Vascepa 2g PO BID Depression - continue home Bupropion 150mg PO QAM FEN/GI: DM2 diet, IVFs held given fluid overload DVT Prophylaxis: Heparin 5000 units SQ Q8H Code Status: Full code Disposition: PCU w/ tele PT/OT: ordered Laterality: left Site of cellulitis: extremity Site of cellulitis of extremity: lower extremity Qualified Code(s): L03.116 - Cellulitis of left lower limb Admission and Anticipated Discharge Date Admission Date: September 05, 2020 Supervising Attestation I personally examined the patient and verified all sauceda points of history and exam, discussed case, and agree with decision making with Yusef Watkins MS4 Feeling better and breathing better. Leg feels better. Generally feeling much better overall. Still quite fatigued.. Vitals noted, in general he is awake and alert pleasant no distressvery fatigued appearing. HEENT normocephalic atraumatic mucous members moist. Breathing unlabored no accessory muscle use good effort. Skin shows resolving appearing erythema on his left leg well below the outlined area, tender throughout, but seems to be just is tender where there is still redness and swelling as where there is not. No focal neuro deficits. Acute hypoxic respiratory failure/respiratory distress/pulmonary edemaseems to be more related to his acute renal failure superimposed on stage IV CKD, more so than a direct CHF issue, given his echocardiogram. Seems to be starting to turn the corner. Increased urine output reassuring, very slight improvement in creatinine reassuring. Definitely still need to follow closely, still high risk for needing acute dialysis, but given that his pulmonary edema responded to diuretics, continue to follow closely and diurese again if needed. Appreciate nephrology assistance. Cellulitis/diabetic foot infection/sepsis/secondary bacteremiathis all appears to be stable and slowly improving. Continue current care with anticipated prolonged course of IV antibiotics Uncontrolled type 2 diabetes, morbid obesity with a BMI of 48.6, obstructive sleep apnea/Venous insufficiency/venous stasisongoing discussions of lifestyle change as his receptiveness allows. Diabetes under good control for acute inpatient situation. Otherwise as above Subjective On 5L O2 mask this morning. Increased urine output. Denies shortness of breath. Endorses mild pain associated with cellulitis unchanged from yesterday. Has not yet had a BM and denies abdominal pain or bloating Review of Systems Review of Systems: All systems reviewed & are unremarkable except as noted in HPI & below Physical Exam Physical Exam: GENERAL: nad HEENT: conjunctiva without injection b/l, external nose and pinna are normal CHEST: cta bilaterally with no wheezes, rhonchi or rales, normal respiratory effort CARDIOVASCULAR: heart regular rate and rhythm, no murmurs, gallops or rubs, non- pitting lower extremity edema ABD: nontender to palpation, soft, distended, normal active bowel sounds SKIN: Erythema of L lower calf below marker line, tender to palpation, no other rashes or suspicious lesions noted NEURO: PERRLA Results & Data ([facility]) Vital Signs (Past 12 Hours) Vital Signs Temp Pulse Resp BP BP Pulse Ox 09/12/20 07:24 36.5 C 87 20 136/70 97 09/12/20 03:48 36.6 C 88 22 139/85 96 09/11/20 23:16 36.5 C 86 22 101/65 95
--- NOTE | 2020-09-12 10:23 | Nephrology Progress Note ---
Date of Service September 12, 2020 Assessment & Plan (1) Acute kidney injury: 40-year-old male with stage IV CKD secondary to diabetic nephropathy, baseline creatinine has been around 3 with repeated episodes of acute kidney injury. He was admitted to the hospital with sepsis secondary to strep b acteremia and left lower extremity cellulitis, On ampicillin. MRI was negative for osteomyelitis. MYKE was negative for vegetation or endocarditis. Developed BJ in the setting of sepsis and bladder outlet obstruction and b/l hydro, resolved after placement of Patten catheter. Renal function somewhat stable, continues to respond to diuretic, net negative more than 1 L. Electrolyte acceptable. -- Continue to monitor renal function, volume status and electrolytes. There is no pressing indication for dialysis at this time. Would like to avoid tunnel catheter if possible considering recent bacteremia and cellulitis. Assess daily for any need for dialysis while waiting for kidney function to improve. 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 -- left arm nephrology precaution for future vascular access Will follow (2) Sepsis: (3) Cellulitis of left lower extremity: (4) Chronic kidney disease, stage 4 (severe): (5) Hypertension: (6) Bacteremia due to Streptococcus: Admission and Anticipated Discharge Date Admission Date: September 05, 2020 Subjective Scar was seen this morning, no overnight events. He feels about the same, did not have any significant shortness of breath with minimum activity. Continued meds to make decent amount of urine, net negative more than 1 L. electrolyte acceptable. Kidney function staying relatively stable. Afebrile. Review of Systems Review of Systems: All systems reviewed & are unremarkable except as noted in Subjective Physical Exam Constitutional: WD/WN, vitals as above + morbidly obese; no acute distress Respiratory: normal respiratory effort; no respiratory distress Auscultation: + diminished lung sounds, + rales and + wheezes Cardiovascular: Rate/Rhythm: regular rate and regular rhythm Heart Sounds: normal S1 and normal S2 Extremities: no edema Skin: + erythema ( Left lower extremity) Neurologic: moves all extremities and awake; not confused Psychiatric: A+Ox3, euthymic affect Results & Data ([facility]) Vital Signs (Past 12 Hours) Vital Signs Temp Pulse Resp BP BP Pulse Ox 09/12/20 09:37 96 09/12/20 07:24 36.5 C 87 20 136/70 97 09/12/20 03:48 36.6 C 88 22 139/85 96 09/11/20 23:16 36.5 C 86 22 101/65 95 PG Care Time/CCT Total # of Minutes Spent Total Time Spent with Patient: Total time spent is greater than 50% in coordination of care (as documented) at patient's floor/unit and/or counseling patient: Coding Level of Care Code 15484 Subseq Hosp Care Lvl 3 Diagnoses Acute kidney injury N17.9 Sepsis A41.9 Sepsis acute organ dysfunction status: without acute organ dysfunction Sepsis type: sepsis due to unspecified organism Cellulitis of left lower extremity L03.116 Chronic kidney disease, stage 4 (severe) N18.4 Hypertension I10 Bacteremia due to Streptococcus R78.81; B95.5 (1) Sepsis Sepsis acute organ dysfunction status: without acute organ dysfunction Sepsis type: sepsis due to unspecified organism Qualified Code(s): A41.9 - Sepsis, unspecified organism
--- NOTE | 2020-09-12 15:56 | Billing Data ---
Date of Service September 12, 2020 Coding Level of Care Code 67817 Subseq Hosp Care Lvl 3
[2020-09-12] MEDS: HYDROmorphone INJ 0.5 MG/0.5 ML SYR IV PRN (19:51)
[2020-09-12] MEDS: ACETAMINOPHEN 325 MG TAB PO PRN (19:52)
[2020-09-12] MEDS: TAMSULOSIN HCL 0.4 MG CAP PO SCH (20:19)
[2020-09-12] MEDS: AMITRIPTYLINE HCL 25 MG TAB PO SCH (20:20)
--- NOTE | 2020-09-12 21:41 | Podiatry Consultation ---
Date of Consultation September 12, 2020 Assessment & Plan (1) Diabetic foot ulcer associated with type 2 diabetes mellitus: I have been treating Lex Manzano who is a 40 yo male with PMHx. significant for obesity, uncontrolled T2DM (A1c 8.2 in 07/2020), frequent cellulitis of lower extremities, HLD, CKD IV and UNIQUE. Patient was recently treated for strep bacteremia 2/2 LLE cellulitis in early August. He was admitted to [facility] on 09/05 for sepsis in the setting of another bout of LLE cellulitis. Sepsis 2/2 Group G Strep Bacteremia Unstable vital signs on presentation with elevated WBC 26/CRP 20/ESR 68/Lactate 6.0. Blood cultures growing rondon-sensitive Group G Beta Strep. XR L Fibula/Tibia showing soft tissue edema without bony involvement. Suspect GPC Bacteremia 2/2 LLE Cellulitis. TTE and MYKE both negative for vegetations. Suspect repeat infection secondary to poorly controlled diabetes - continue Ampicillin 2g IV Q8H (renally adjusted) - ID consulted - appreciate recs Reviewed Nephrology note, stage IV CKD secondary to diabetic nephropathy, Renal function worsened rapidly to creatinine 6. Patient will likely progress to dialysis. Hesitation to apply stent due to Bacteremia. On Amoxicillin per ID I examined the patient for an ulcer that has been resistant to healing. Wound cl eansed. Factors which likely contribute to non-healing include: lack of adequate off-loading when supine, inadequately controlled infection, lack of adequate off-loading when ambulating, lack of adherence to diabetic footwear, a limited understanding of the disease of diabetes and its processes, lack of adherence to diabetic control measures. Santyl being applied QD during dressing changes. Thank you for allowing me to participate in the care of this Patient. Diabetic foot ulcer location: toe Laterality: left Non-pressure ulcer stage: unspecified non-pressure ulcer stage Qualified Code(s): E11.621 - Type 2 diabetes mellitus with foot ulcer; L97.529 - Non-pressure chronic ulcer of other part of left foot with unspecified severity (2) Cellulitis: Laterality: left Site of cellulitis: extremity Site of cellulitis of extremity: lower extremity Qualified Code(s): L03.116 - Cellulitis of left lower limb (3) Cellulitis and abscess of left leg: (4) Sepsis: Acute renal failure type: unspecified Sepsis acute organ dysfunction status: with acute organ dysfunction Sepsis type: sepsis due to unspecified organism Severe sepsis acute organ dysfunction type: acute renal failure Severe sepsis shock status: without septic shock Qualified Code(s): A41.9 - Sepsis, unspecified organism; R65.20 - Severe sepsis without septic shock; N17.9 - Acute kidney failure, unspecified History of Present Illness Attending Physician: Yasmany Christensen DO Allergies Allergy/AdvReac Type Severity Reaction Status Date / Time piperacillin [From Zosyn] Allergy Severe Fever Verified 09/05/20 15:50 tazobactam [From Zosyn] Allergy Severe Fever Verified 09/05/20 15:50 amoxicillin AdvReac Mild Gastrointestinal Verified 09/05/20 15:50 Upset Home Medications Medication Instructions Recorded Confirmed Type amlodipine 10 mg PO QAM 04/08/19 09/05/20 History atorvastatin 80 mg PO QAM 04/08/19 09/05/20 History alprazolam 1 mg tablet 1 mg PO DAILY PRN 10/14/19 09/05/20 History bupropion HCl 150 mg tablet,12 hr 150 mg PO QAM 10/14/19 09/05/20 History sustained-release pregabalin 100 mg capsule 100 mg PO BID 12/01/19 09/05/20 History multivitamin 1 tab PO QAM 01/04/20 09/05/20 History amitriptyline 25 mg PO HS 01/14/20 09/05/20 History insulin aspart U-100 100 unit/mL 0 unit SUBCUT TIDM ml 03/21/20 09/05/20 History (3 mL) subcutaneous pen icosapent ethyl [Vascepa] 2 g PO BID 04/13/20 09/05/20 History tamsulosin 0.4 mg PO HS #30 cap 04/26/20 09/05/20 Rx insulin glargine 100 unit/mL (3 54 unit SQ BID box 07/31/20 09/05/20 History mL) subcutaneous pen semaglutide 0.5 mg SUBCUT .weekly ml 07/31/20 09/05/20 History acetaminophen [Tylenol 8 Hour] 650 mg PO Q8H PRN #60 tab 08/13/20 09/05/20 Rx calcium acetate(phosphat bind) 667 mg PO TIDM #90 cap 08/13/20 09/05/20 Rx carvedilol 25 mg PO BID #60 tab 08/13/20 09/05/20 Rx ceftriaxone 2 g IV DAILY #5 ea 08/13/20 09/05/20 Rx lisinopril 20 mg tablet 20 mg PO DAILY #90 tab 08/24/20 09/05/20 Rx Patient History Medical History Abnormal CT scan, chest Anemia due to chronic kidney disease Chronic diarrhea reason for colonoscopy Chronic kidney disease, stage 4 (severe) Diabetic nephropathy associated with type 2 diabetes mellitus DM neuropathy, painful DM retinopathy Habitual snoring never had a sleep study test done Hidradenitis suppurativa HTN (hypertension) Hyperlipidemia Kidney stones Morbid obesity with BMI of 45.0-49.9, adult Obesity Proteinuria Uncontrolled type 2 diabetes mellitus Surgical History History of cardiac cath 2014 ?? 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 History of eye surgery left eye multiple before eye removal History of tooth extraction History of wisdom tooth extraction Status post epidural steroid injection Family History Mother No problems noted. Father , Age 60, [place] Myocardial infarction Unknown Charcot-Ana disease Neuropathy Brother Family history of diabetes mellitus Other No family history of adverse response to anesthesia No significant family history Social History Smoking Status: Never smoker Second Hand Exposure: No; Hx Alcohol Use: No Hx Substance Use: Yes Last Used Substance: Days (ago) Substance Use Type Other:: edibles for neuropathy Preferred Language: Czech Communication Ability: Effective Visual Impairment: No Limitations Sales Designer Required: No Beliefs That Will Affect Care: None marital status: Current Living Situation: Spouse Current Living Situation Comment: Lives with spouse current occupational status: employed Feels Safe at Home: Yes Safety Concerns: Feels Safe At This Time Assistive Devices: Oxygen - Continuous Assistive Devices Comment: prosthetic left eye Physical Exam Constitutional: well developed and well nourished ENMT: external ear and nose normal, oropharynx normal Neck: trachea midline, no thyromegaly Respiratory: normal respiratory effort Cardiovascular: Rate/Rhythm: regular rate and regular rhythm Psychiatric: Orientation: alert and oriented x 3 Results & Data ([facility]) Vital Signs (Past 12 Hours) Vital Signs Temp Pulse Resp BP BP Pulse Ox 09/12/20 20:01 37.1 C 64 18 119/72 95 09/12/20 15:41 36.5 C 85 19 121/75 94 09/12/20 11:38 36.5 C 88 22 153/66 H 90
[2020-09-13] MEDS: HYDROmorphone INJ 0.5 MG/0.5 ML SYR IV PRN ×3 (01:49→22:26)
[2020-09-13] MEDS: AMPICILLIN 2,000 MG in SODIUM CHLOR 0.9% AD-VAN 100 ML IV SCH ×3 (04:43→20:37)
[2020-09-13] MEDS: HEPARIN SOD 5,000 UNIT/0.5 ML VIAL SQ SCH ×3 (06:30→21:10)
[2020-09-13 07:12] LABS: Hematocrit (blood only) 27.7 % (42-52); Hemoglobin 8.7 g/dL (14.0-18.0); Mean Corpuscular Hemoglobin 27.6 pg (25-34); Mean Corpuscular Hgb Conc 31.4 g/dL (32-36); Mean Corpuscular Volume 87.9 fL (80-100); Mean Platelet Volume 11.2 fL (7.4-10.4); Platelet Count 384 K/uL (130-400); RDW Coefficient of Variation 15.2 % (11.5-14.5); RDW Standard Deviation 48.2 fL (36.4-46.3); Red Blood Count 3.15 M/uL (4.7-6.1); White Blood Count 13.38 K/uL (4.8-10.8)
[2020-09-13 07:46] LABS: Albumin Level 1.8 gm/dl (3.4-5.0); BUN Creatinine Ratio 12.1 (10-20); Calcium 8.5 mg/dl (8.5-10.1); Creatinine Clr Calc Pharmacy 24.9 ml/min; Est GFR (African American) 11.9 ml/min; Est GFR (Non-African American) 10.2 ml/min; Phosphorus 5.7 mg/dl (2.5-4.9); Potassium 4.8 mmol/L (3.5-5.1)
[2020-09-13] MEDS: INSULIN ASPART 100 UNITS/ML 3 ML PEN SC SCH ×4 (08:05→20:45)
[2020-09-13] MEDS: carvediloL 25 MG TAB PO SCH ×2 (08:05→20:41)
[2020-09-13] MEDS: buPROPion SR 150 MG TABCR PO SCH (08:05)
[2020-09-13] MEDS: OMEGA-3 (PURIFIED FISH OIL) 1 GM CAP PO SCH ×2 (08:05→20:41)
[2020-09-13] MEDS: ATORVASTATIN 40 MG TAB PO SCH (08:05)
[2020-09-13] MEDS: INSULIN GLARGINE SOLOSTAR 100 UNITS/ML 3 ML PEN SC SCH ×2 (08:06→20:46)
[2020-09-13] MEDS: amLODIPine BESYLATE 5 MG TAB PO SCH (08:06)
[2020-09-13] MEDS: CALCIUM ACETATE 667 MG CAP/TAB PO SCH ×3 (08:06→17:07)
[2020-09-13] MEDS: PREGABALIN 75 MG CAP PO SCH ×2 (08:08→21:10)
[2020-09-13 08:10] LABS: ALC (manual) 1.51 K/uL (1.2-3.4); ANC (manual) 9.07 K/uL (1.4-6.5); Basophils # (manual) 0.35 K/uL (0-0.2); Basophils % (manual) 2.6 %; Eosinophils # (manual) 0.23 K/uL (0-0.5); Eosinophils % (manual) 1.7 %; Lymphocytes # (manual) 1.51 K/uL (1.2-3.4); Lymphocytes % (manual) 11.3 %; Metamyelocytes # (manual) 0.82 K/uL (0-0); Metamyelocytes % (manual) 6.1 %; Monocytes # (manual) 0.47 K/uL (0.11-0.59); Monocytes % (manual) 3.5 %; Myelocytes # (manual) 0.94 K/uL (0-0); Neutrophils # (manual) 9.07 K/uL (1.4-6.5); Neutrophils % (manual) 67.8 %
--- NOTE | 2020-09-13 09:03 | Medical Student Progress Note ---
Date of Service September 13, 2020 Assessment & Plan (1) Cellulitis: Lex Manzano is a 40 yo male with PMHx. significant for obesity, uncontrolled T2DM (A1c 8.2 in 07/2020), frequent cellulitis of lower extremities, HLD, CKD IV and UNIQUE. Patient was recently treated for strep bacteremia 2/2 LLE cellulitis in early August. He was admitted to [facility] on 09/05 for sepsis in the setting of another bout of LLE cellulitis. LLE Cellulitis w/ resolved sepsis 2/2 Group G Strep Bacteremia Unstable vital signs on presentation with elevated WBC 26/CRP 20/ESR 68/Lactate 6.0. Blood cultures growing rondon-sensitive Group G Beta Strep. XR L Fibula/Tibia showing soft tissue edema without bony involvement. Suspect GPC Bacteremia 2/2 LLE Cellulitis. TTE and MYKE both negative for vegetations. Suspect repeat infection secondary to poorly controlled diabetes - continue Ampicillin 2g IV Q8H (renally adjusted) - ID consulted - appreciate recs - Ordered pro-indy 09/13 Pulmonary Edema Persistent supplemental oxygen requirement 3-7L, TTE with low-normal LV systolic function, BNP elevated 1487 and CXR showing new pulmonary edema and trace pleural effusions --> suspect acute on chronic HFrEF. Abdomen pelvis CT obtained 09/10 demonstrated fluid overload with right greater than left pleural effusions, mild generalized body wall edema and trace abdominal ascites, interstitial pulmonary edema with scattered groundglass and consolidative opacities of the lung base suggestive of alveolar pulmonary edema. Concerned worsening renal function is leading to significant fluid accumulation. - supplemental oxygen as needed, wean as tolerated -BiPAP if respiratory status worsens -2 mg of Bumex given 09/10 -Clinically improving but will continue to assess BJ on CKD IV Unclear baseline Cr but appears to be in 3s, Cr 4.83 on admission, suspect ATN 2/2 bacteremia. However, UOP is less than 0.5mL/kg/min and cannot r/o obstructive pathology without further work-up. CT abdomen pelvis negative for obstructive pathology. 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 - wound care consult - podiatry consult per patient request - continue Lyrica 75mg PO BID - dose adjusted for renal function SVT, resolved Presented to ED with SVT in [id number] but converted to sinus tachycardia without intervention, and HR has improved with abx/IVFs. Suspect 2/2 sepsis. - continue to monitor for changes on tele - continue coreg. Elevated Troponin,RESOLVED Troponin maxed at .084,suspect Type II NSTEMI due to sepsis. T2DM - A1c 8.2 on 09/06 - Lantus + SSI - pharmacy glycemic consult placed - appreciate recs HTN - resumed home Amlodipine/Carvedilol given improved BPs to 140s/90s and ongoing tachycardia - continue to hold Lisinopril given BJ HLD - Continue Atorvastatin 80mg PO QAM and Vascepa 2g PO BID Depression - continue home Bupropion 150mg PO QAM FEN/GI: DM2 diet, IVFs held given fluid overload DVT Prophylaxis: Heparin 5000 units SQ Q8H Code Status: Full code Disposition: PCU w/ tele PT/OT: ordered Laterality: left Site of cellulitis: extremity Site of cellulitis of extremity: lower extremity Qualified Code(s): L03.116 - Cellulitis of left lower limb Admission and Anticipated Discharge Date Admission Date: September 05, 2020 Supervising Attestation I personally examined the patient and verified all sauceda points of history and exam, discussed case, and agree with decision making with Yusef Watkins MS4 feeling better except leg still painful and swollen. breathing much better Vitals noted, in general he is awake and alert pleasant no distressvery fatigued appearing. HEENT normocephalic atraumatic mucous members moist. Breathing unlabored no accessory muscle use good effort. erythema on leg a little bigger - more vaguely diffuse but higher than yesterday. ongoing tenderness Acute hypoxic respiratory failure/respiratory distress/pulmonary edemaseems to be more related to his acute renal failure superimposed on stage IV CKD, more so than a direct CHF issue, given his echocardiogram. Seems to be starting to turn the corner. Increased urine output reassuring, very slight improvement in creatinine reassuring. Definitely still need to follow closely, still high risk for needing acute dialysis, but given that his pulmonary edema responded to diuretics, continue to follow closely and diurese again if needed. Appreciate nephrology assistance. Cellulitis/diabetic foot infection/sepsis/secondary bacteremiathis all appears to be stable and slowly improving. Continue current care with anticipated prolonged course of IV antibiotics - see below under leg erythema otherwise leg erythema - worse - nonspecific. ?worse venous stasis and inflammatory fluid just from more movement/more dependent edema (most likely) vs DVT (check doppler) vs polymicrobial cellulitis with just monomicrobial bacteremia (least likely since no fever and WBC slowly trending down) -- doppler, serial exams, serial labs. Uncontrolled type 2 diabetes, morbid obesity with a BMI of 48.6, obstructive sleep apnea/Venous insufficiency/venous stasis having ongoing discussions of lifestyle change as his receptiveness allows. Diabetes under overall good control for acute inpatient situation. Otherwise as above Subjective Looking better today. Does not need oxygen when sitting up, and down to 2L lying down. Denies shortness of breath. Good urine output. Increased pain of L calf, but was also more active last night with therapy. Denies fevers/ chills. Still has not had a BM. Denies abdominal pain/ bloating. Review of Systems Review of Systems: All systems reviewed & are unremarkable except as noted in HPI & below Physical Exam Physical Exam: GENERAL: nad HEENT: conjunctiva without injection b/l, external nose and pinna are normal CHEST: cta bilaterally with no wheezes, rhonchi or rales, normal respiratory effort CARDIOVASCULAR: heart regular rate and rhythm, no murmurs, gallops or rubs, non- pitting lower extremity edema ABD: nontender to palpation, soft, distended, normal active bowel sounds SKIN: Erythema of L lower calf increased from yesterday, tender to palpation, no other rashes or suspicious lesions noted NEURO: PERRLA Results & Data ([facility]) Vital Signs (Past 12 Hours) Vital Signs Temp Pulse Pulse Resp BP Pulse Ox 09/13/20 07:24 83 09/13/20 07:16 36.4 C L 86 17 143/80 H 94 09/13/20 03:33 36.5 C 82 19 123/77 90 09/12/20 23:03 36.6 C 85 20 119/77 90 09/12/20 23:00 81
[2020-09-13] MEDS: POLYETHYLENE (MIRALAX) 17 GM PACK PO SCH ×2 (09:23→20:41)
--- NOTE | 2020-09-13 10:07 | Nephrology Progress Note ---
Date of Service September 13, 2020 Assessment & Plan (1) Acute kidney injury: 40-year-old male with stage IV CKD secondary to diabetic nephropathy, baseline creatinine has been around 3 with repeated episodes of acute kidney injury. He was admitted to the hospital with sepsis secondary to strep b acteremia and left lower extremity cellulitis, On ampicillin. MRI was negative for osteomyelitis. MYKE was negative for vegetation or endocarditis. Developed BJ in the setting of sepsis and bladder outlet obstruction and b/l hydro, resolved after placement of Patten catheter. Renal function continues to improve, decent UO without diuretic, net negative more than 1 L. Electrolyte acceptable. -- Continue to monitor renal function, volume status and electrolytes. As renal function improving, electrolyte acceptable, volume status acceptable and have decent urine output, no indication for dialysis and hopefully will be able to avoid dialysis this admission. -- Keep Patten catheter for now, consider discontinuing and voiding trial if okay with Urology -- left arm nephrology precaution for future vascular access Will follow (2) Sepsis: (3) Cellulitis of left lower extremity: (4) Chronic kidney disease, stage 4 (severe): (5) Hypertension: (6) Bacteremia due to Streptococcus: Admission and Anticipated Discharge Date Admission Date: September 05, 2020 Subjective Scar was seen this morning, overall doing better, appetite improved. Denies any significant shortness of breath, using less O2. Continues to make decent amount of urine, net negative more than 1.5 L. electrolyte acceptable. Kidney function started to improve. Review of Systems Review of Systems: All systems reviewed & are unremarkable except as noted in Subjective Physical Exam Constitutional: WD/WN, vitals as above + ill appearing and + morbidly obese; no acute distress Respiratory: normal respiratory effort; no respiratory distress Aus cultation: + diminished lung sounds Cardiovascular: Rate/Rhythm: regular rate and regular rhythm Heart Sounds: normal S1 and normal S2 Extremities: no edema Skin: + rash and + erythema ( Left lower extremity) Neurologic: moves all extremities and awake; not confused Psychiatric: A+Ox3, euthymic affect Results & Data ([facility]) Vital Signs (Past 12 Hours) Vital Signs Temp Pulse Pulse Resp BP Pulse Ox 09/13/20 07:24 83 09/13/20 07:16 36.4 C L 86 17 143/80 H 94 09/13/20 03:33 36.5 C 82 19 123/77 90 07/07/21 23:03 36.6 C 85 20 119/77 90 09/12/20 23:00 81 PG Care Time/CCT Total # of Minutes Spent Total Time Spent with Patient: Total time spent is greater than 50% in coordination of care (as documented) at patient's floor/unit and/or counseling patient: Coding Level of Care Code 42974 Subseq Hosp Care Lvl 3 Diagnoses Acute kidney injury N17.9 Sepsis A41.9 Sepsis acute organ dysfunction status: without acute organ dysfunction Sepsis type: sepsis due to unspecified organism Cellulitis of left lower extremity L03.116 Chronic kidney disease, stage 4 (severe) N18.4 Hypertension I10 Bacteremia due to Streptococcus R78.81; B95.5 (1) Sepsis Sepsis acute organ dysfunction status: without acute organ dysfunction Sepsis type: sepsis due to unspecified organism Qualified Code(s): A41.9 - Sepsis, unspecified organism
--- NOTE | 2020-09-13 11:52 | Pharmacy Report ---
Pharmacy Glycemic Short Note 2 - Date of Service September 13, 2020 - Glycemic Short BSG Results (Last 24 hours): 09/12/20 09/12/20 09/13/20 16:14 20:53 06:53 Glucose 146 H POC Glucose 173 H 112 H 09/13/20 09/13/20 07:02 11:04 Glucose POC Glucose 157 H 159 H OUTPATIENT ANTIDIABETIC REGIMEN: * Basaglar (insulin glargine) 54 units SQ BID * NovoLog TIDM (up to 100 units/day) * Ozempic * A1c = 8.2% on 08/04/20 ASSESSMENT: 09/13: * Patient NPO last two midnights for possible per cath placement, nephrology hoping for no HD this admission, diet resumed * resume Lantus 40 units daily QAM tomorrow (had 30 units QAM last two days for NPO status during parts of the day) * Blood sugars at goal, no other changes at this time 09/11: * Patient received total of 48 units of insulin yesterday, of which 30 units were basal. He was NPO for most of day * Fasting BSG 128 mg/dL - will titrate up basal insulin carefully as Scr continues to trend upward. His fasting BSGs had been trending down on 54 units daily of Lantus, therefore feel that we should scale back * Will give 40 units Lantus this AM, may add scale for HS if trending upward 09/10: * Patient received total of 101 units of insulin yesterday, of which 54 units were basal insulin * Fasting BSG 90 mg/dL - patient NPO for possible MYKE - reduced basal by ~40% this AM * May add scale for basal at HS if diet resumed and BSGs trending upward 09/09: * Lex received a total of 118 units of insulin yesterday * 54 units basal + 64 units bolus * BSGs were acceptable: [id number] mg/dL * Fasting BSG was controlled at 116 mg/dL this AM * No changes necessary to insulin regimen PLAN FOR INPATIENT GLYCEMIC CONTROL: * Basal insulin * Lantus 40 units daily * Lantus 0-10 units HS * Bolus insulin * NovoLog per scale ACHS or Q6hrs while NPO * Goal Range: Low 110 mg/dL - High 140 mg/dL * Correction Factor: 10 mg/dL/unit * Nutritional / Prandial insulin per carb ratio of 1 unit per 3 grams CHO consumed PLAN FOR DISCHARGE: * A1c 8.2% - goal for patient <7% * Plan of care will depend on if there is improvement in renal function or if dialysis is started. Will continue to follow trends to determine insulin needs.
[2020-09-13] MEDS ORDERED: IRON SUCROSE 300 MG in SODIUM CHLORIDE 0.9% 250 ML IV ONE (15:00)
--- NOTE | 2020-09-13 18:01 | Billing Data ---
Date of Service September 13, 2020 Coding Level of Care Code 82075 Subseq Hosp Care Lvl 3
[2020-09-13] MEDS: AMITRIPTYLINE HCL 25 MG TAB PO SCH (20:40)
[2020-09-13] MEDS: TAMSULOSIN HCL 0.4 MG CAP PO SCH (20:41)
[2020-09-13] MEDS: ACETAMINOPHEN 325 MG TAB PO PRN (22:26)
[2020-09-14] MEDS: HYDROmorphone INJ 0.5 MG/0.5 ML SYR IV PRN ×4 (04:00→23:29)
[2020-09-14] MEDS: AMPICILLIN 2,000 MG in SODIUM CHLOR 0.9% AD-VAN 100 ML IV SCH ×3 (04:40→19:34)
[2020-09-14] MEDS: HEPARIN SOD 5,000 UNIT/0.5 ML VIAL SQ SCH ×3 (05:17→21:08)
--- NOTE | 2020-09-14 07:19 | Ultrasound Report ---
BILATERAL LOWER EXTREMITY VENOUS DOPPLER HISTORY: Bilateral leg pain. COMPARISON STUDY: None. FINDINGS: There is normal compressibility, flow, and augmentation within the bilateral lower extremit y deep venous systems. IMPRESSION: No DVT within the right or left lower extremity. ACT 112: Negative or not required by law. Electronically signed by: Ken Robbins M.D. 09/14/2020 7:17 AM
[2020-09-14 07:47] LABS: Hematocrit (blood only) 26.8 % (42-52); Hemoglobin 8.5 g/dL (14.0-18.0); Mean Corpuscular Hemoglobin 27.5 pg (25-34); Mean Corpuscular Hgb Conc 31.7 g/dL (32-36); Mean Corpuscular Volume 86.7 fL (80-100); Mean Platelet Volume 11.4 fL (7.4-10.4); Nucleated RBC # (auto) 0.03 K/uL (0-0); Nucleated RBC % (auto) 0.2 %; Platelet Count 412 K/uL (130-400); RDW Coefficient of Variation 15.3 % (11.5-14.5); RDW Standard Deviation 47.4 fL (36.4-46.3); Red Blood Count 3.09 M/uL (4.7-6.1); White Blood Count 14.11 K/uL (4.8-10.8)
[2020-09-14 08:22] LABS: Basophils # (auto) 0.04 K/uL (0-0.2); Basophils % (auto) 0.3 %; Eosinophils # (auto) 0.14 K/uL (0-0.5); Immature Granulocytes # (auto) 1.38 K/uL (0.00-0.02); Immature Granulocytes % (auto) 9.8 %; Lymphocytes # (auto) 2.75 K/uL (1.2-3.4); Lymphocytes % (auto) 19.5 %; Monocytes # (auto) 0.95 K/uL (0.11-0.59); Monocytes % (auto) 6.7 %; Neutrophils # (auto) 8.85 K/uL (1.4-6.5); Neutrophils % (auto) 62.7 %; Polychromasia 1+
[2020-09-14 08:24] LABS: Albumin Globulin Ratio 0.3 (0.9-2); Albumin Level 1.9 gm/dl (3.4-5.0); BUN Creatinine Ratio 12.7 (10-20); Bilirubin,Total 0.2 mg/dl (0.2-1); Calcium 8.4 mg/dl (8.5-10.1); Creatinine Clr Calc Pharmacy 26.5 ml/min; Est GFR (African American) 12.8 ml/min; Est GFR (Non-African American) 11.1 ml/min; Globulin 5.6 gm/dl (2.5-4.0); Phosphorus 4.9 mg/dl (2.5-4.9); Potassium 4.7 mmol/L (3.5-5.1); Total Protein 7.5 gm/dl (6.4-8.2)
[2020-09-14] MEDS ORDERED: INSULIN GLARGINE SOLOSTAR 100 UNITS/ML 3 ML PEN SC SCH (09:00)
[2020-09-14] MEDS: ATORVASTATIN 40 MG TAB PO SCH (10:04)
[2020-09-14] MEDS: buPROPion SR 150 MG TABCR PO SCH (10:04)
[2020-09-14] MEDS: CALCIUM ACETATE 667 MG CAP/TAB PO SCH ×3 (10:05→18:04)
[2020-09-14] MEDS: amLODIPine BESYLATE 5 MG TAB PO SCH (10:05)
[2020-09-14] MEDS: OMEGA-3 (PURIFIED FISH OIL) 1 GM CAP PO SCH ×2 (10:05→20:49)
[2020-09-14] MEDS: carvediloL 25 MG TAB PO SCH ×2 (10:05→20:49)
[2020-09-14] MEDS: POLYETHYLENE (MIRALAX) 17 GM PACK PO SCH ×2 (10:06→20:50)
[2020-09-14] MEDS: PREGABALIN 75 MG CAP PO SCH ×2 (10:08→20:48)
[2020-09-14] MEDS: INSULIN ASPART 100 UNITS/ML 3 ML PEN SC SCH ×4 (10:20→20:36)
--- NOTE | 2020-09-14 11:55 | Nephrology Progress Note ---
Date of Service September 14, 2020 Assessment & Plan (1) Acute kidney injury: 40-year-old male with stage IV CKD secondary to diabetic nephropathy, baseline creatinine has been around 3 with repeated episodes of acute kidney injury. He was admitted to the hospital with sepsis secondary to strep b acteremia and left lower extremity cellulitis, On ampicillin. MRI was negative for osteomyelitis. MYKE was negative for vegetation or endocarditis. Developed BJ in the setting of sepsis and bladder outlet obstruction and b/l hydro, resolved after placement of Patten catheter. Renal function continues to improve, decent UO without diuretic, net negative more than 0.7 L. Electrolyte acceptable. -- expect renal function to continue to improve. Has been having decent urine output, no need for diuretic at this time, encouraged to keep well hydrated while kidney function is recovering. -- Keep Patten catheter for now, consider discontinuing and voiding trial if okay with Urology -- left arm nephrology precaution for future vascular access Will follow (2) Sepsis: (3) Cellulitis of left lower extremity: (4) Chronic kidney disease, stage 4 (severe): (5) Hypertension: (6) Bacteremia due to Streptococcus: Admission and Anticipated Discharge Date Admission Date: September 05, 2020 Subjective Scar continues to do well, appetite improved. Denies any significant shortness of breath, using less O2. Continues to make decent amount of urine, net negative more than 0.7 L. electrolyte acceptable. Kidney function continues to improve, electrolyte acceptable. Review of Systems Review of Systems: All systems reviewed & are unremarkable except as noted in Subjective Physical Exam Constitutional: WD/WN, vitals as above + morbidly obese; no acute distress Respiratory: normal respiratory effort, lungs clear to auscultation normal respiratory effort; no respiratory distress Auscultation: + diminished lung sounds Cardiovascular: Rate/Rhythm: regular rate and regular rhythm Heart Sounds: normal S1 and normal S2 Extremities: no edema Skin: + rash and + erythema ( Left lower extremity) Neurologic: moves all extremities and awake; not confused Psychiatric: A+Ox3, euthymic affect Results & Data ([facility]) Vital Signs (Past 12 Hours) Vital Signs Temp Pulse Resp BP Pulse Ox 09/14/20 07:40 36.7 C 84 18 147/88 H 90 PG Care Time/CCT Total # of Minutes Spent Total Time Spent with Patient: Total time spent is greater than 50% in coordination of care (as documented) at patient's floor/unit and/or counseling patient: Coding Level of Care Code 94119 Subseq Hosp Care Lvl 3 Diagnoses Acute kidney injury N17.9 Sepsis A41.9 Sepsis acute organ dysfunction status: without acute organ dysfunction Sepsis type: sepsis due to unspecified organism Cellulitis of left lower extremity L03.116 Chronic kidney disease, stage 4 (severe) N18.4 Hypertension I10 Bacteremia due to Streptococcus R78.81; B95.5 (1) Sepsis Sepsis acute organ dysfunction status: without acute organ dysfunction Sepsis type: sepsis due to unspecified organism Qualified Code(s): A41.9 - Sepsis, unspecified organism
--- NOTE | 2020-09-14 12:43 | Medical Student Progress Note ---
Date of Service September 14, 2020 Assessment & Plan (1) Cellulitis: Lex Manzano is a 40 yo male with PMHx. significant for obesity, uncontrolled T2DM (A1c 8.2 in 07/2020), frequent cellulitis of lower extremities, HLD, CKD IV and UNIQUE. Patient was recently treated for strep bacteremia 2/2 LLE cellulitis in early August. He was admitted to [facility] on 09/05 for sepsis in the setting of another bout of LLE cellulitis. LLE Cellulitis w/ resolved sepsis 2/2 Group G Strep Bacteremia Unstable vital signs on presentation with elevated WBC 26/CRP 20/ESR 68/Lactate 6.0. Blood cultures growing rondon-sensitive Group G Beta Strep. XR L Fibula/Tibia showing soft tissue edema without bony involvement. Suspect GPC Bacteremia 2/2 LLE Cellulitis. TTE and MYKE both negative for vegetations. Suspect repeat infection secondary to poorly controlled diabetes - continue Ampicillin 2g IV Q8H (renally adjusted) - ID consulted - appreciate recs - WBC holding steady but negative pro-indy 09/13 and lack of fever suggestive of lingering inflammation and venous stasis rather than inadequate antibiotic coverage. Will continue to monitor - negative LE Doppler 09/13 Pulmonary Edema Persistent supplemental oxygen requirement 3-7L, TTE with low-normal LV systolic function, BNP elevated 1487 and CXR showing new pulmonary edema and trace pleural effusions --> suspect acute on chronic HFrEF. Abdomen pelvis CT obtained 09/10 demonstrated fluid overload with right greater than left pleural effusions, mild generalized body wall edema and trace abdominal ascites, interstitial pulmonary edema with scattered groundglass and consolidative opacities of the lung base suggestive of alveolar pulmonary edema. Concerned worsening renal function is leading to significant fluid accumulation. - Not requiring O2 as kidney function improving, but supplemental oxygen as needed -BiPAP if respiratory status worsens BJ on CKD IV Unclear baseline Cr but appears to be in 3s, Cr 4.83 on admission, suspect ATN 2/2 bacteremia. However, UOP is less than 0.5mL/kg/min and cannot r/o obstructive pathology without further work-up. CT abdomen pelvis negative for obstructive pathology. -Daily BMP Cr:3.9->4.82->5.2->4.8->5.9->6.6->6.78->6.6->6.2->5.8 - Nephro consulted -no need for TEST DEPARTMENT HELPER at this time - renal US negative for obstruction - renal med dosing - held home lisinopril for renal insufficiency and decreased dose of Lyrica Constipation - BID miralax - milk and molasses enema 09/13 Anemia - likely mixed anemia of chronic disease, iron deficiency anemia, and secondary to CKD IV - Epoetin 09/09 - IV Venofer 09/13 Left Foot Ulcer Suspect 2/2 uncontrolled diabetes. - wound care consult - podiatry consult per patient request - continue Lyrica 75mg PO BID - dose adjusted for renal function SVT, resolved Presented to ED with SVT in [id number] but converted to sinus tachycardia without intervention, and HR has improved with abx/IVFs. Suspect 2/2 sepsis. - continue to monitor for changes on tele - continue coreg. Elevated Troponin,RESOLVED Troponin maxed at .084,suspect Type II NSTEMI due to sepsis. T2DM - A1c 8.2 on 09/06 - Lantus + SSI - pharmacy glycemic consult placed - appreciate recs HTN - resumed home Amlodipine/Carvedilol given improved BPs to 140s/90s and ongoing tachycardia - continue to hold Lisinopril given BJ HLD - Continue Atorvastatin 80mg PO QAM and Vascepa 2g PO BID Depression - continue home Bupropion 150mg PO QAM FEN/GI: DM2 diet, IVFs held given fluid overload DVT Prophylaxis: Heparin 5000 units SQ Q8H Code Status: Full code Disposition: PCU w/ tele PT/OT: ordered Laterality: left Site of cellulitis: extremity Site of cellulitis of extremity: lower extremity Qualified Code(s): L03.116 - Cellulitis of left lower limb Admission and Anticipated Discharge Date Admission Date: September 05, 2020 Supervising Attestation I personally examined the patient and verified all sauceda points of history and exam, discussed case, and agree with decision making with Yusef Watkins MS4 Overall feeling betterjust left leg. Still painful and swollen. Otherwise feeling better. Vitals noted, in general he is awake and alert pleasant no distressvery fatigued appearing. HEENT normocephalic atraumatic mucous members moist. Breathing unlabored no accessory muscle use good effort. erythema on left leg less than yesterdayback down below prior line of demarcation, diffusely tender but better than before, not nearly as tender above the line as yesterday either. No crepitus. Acute hypoxic respiratory failure/respiratory distress/pulmonary edemaseems to be more related to his acute renal failure superimposed on stage IV CKD, more so than a direct CHF issue, given his echocardiogram. Fortunately has turned the corner. Situation still somewhat tenuous given that he had very severe acute renal failure superimposed on CKD with pulmonary edemabut he responded well to diuresis, now he is showing good day today improvement. Continue current management/careful watchful waiting. Cellulitis/diabetic foot infection/sepsis/secondary bacteremiathis all appears to be stable and slowly improving. Continue current care with anticipated prolonged course of IV antibiotics - see below under leg erythema otherwise (for now anticipating a course of ampicillin to finish on 1set the process in motion with case management to have this set up) leg erythema -somewhat nonspecificwas actually worse yesterday than today, still today a bit more pronounced than it was a few days ago. That said I suspect this is all nondescript inflammatory fluid that is not clearing well due to venous insufficiency. Concern on polymicrobial cellulitis would certainly be reasonablebut his white count is smoldering in the low teens rather than rising, he is afebrile, his exam waxes and wanes, and his procalcitonin is much lower than it was on last checkoh making worsening infection/polymicrobial infection far less likely. DVT was of concern, but venous Dopplers are negative. We discussed the nature of venous stasis type fluidand possible remedies to help with this. For now we will give trial to SCDswe discussed that unfortunately may be a bit uncomfortable, but that it would not be dangeroushowever if he does not tolerate certainly he can take it off. Uncontrolled type 2 diabetes, morbid obesity with a BMI of 48.6, obstructive sleep apnea/Venous insufficiency/venous stasis having ongoing discussions of lifestyle change as his receptiveness allows (today reiterated the importance of an overall reclamation of his healthlargely driven by lifestyle change). Diabetes under overall good control for acute inpatient situation. Otherwise as above Subjective Breathing well on room air. Denies shortness of breath. Good urine output. Still having some L calf pain, associated with increased activity/ manipulation from Doppler completed yesterday. Denies fever/ chills. Had a significant BM yesterday s/p milk and molasses enema. Review of Systems Review of Systems: All systems reviewed & are unremarkable except as noted in HPI & below Physical Exam Physical Exam: GENERAL: nad HEENT: conjunctiva without injection b/l, external nose and pinna are normal CHEST: cta bilaterally with no wheezes, rhonchi or rales, normal respiratory effort CARDIOVASCULAR: heart regular rate and rhythm, no murmurs, gallops or rubs, non- pitting lower extremity edema ABD: nontender to palpation, soft, non-distended, normal active bowel sounds SKIN: Erythema of L lower calf same as yesterday, no other rashes or suspicious lesions noted NEURO: PERRLA Results & Data ([facility]) Vital Signs (Past 12 Hours) Vital Signs Temp Pulse Resp BP Pulse Ox 09/14/20 07:40 36.7 C 84 18 147/88 H 90
--- NOTE | 2020-09-14 14:36 | Pharmacy Report ---
Pharmacy Glycemic Short Note 2 - Date of Service September 14, 2020 - Glycemic Short BSG Results (Last 24 hours): 09/13/20 09/13/20 09/14/20 16:16 20:36 06:43 Glucose 116 H POC Glucose 155 H 112 H 09/14/20 09/14/20 08:40 12:23 Glucose POC Glucose 129 H 108 H OUTPATIENT ANTIDIABETIC REGIMEN: * Basaglar (insulin glargine) 54 units SQ BID * NovoLog TIDM (up to 100 units/day) * Ozempic * A1c = 8.2% on 08/04/20 ASSESSMENT: 09/14: * Patient received 75 units of insulin yesterday * 30 units of basal * 45 units of bolus * BSGs ranging from 112 - 159 mg/dL * Fasting BSG of 129 mg/dL is near goal. He has received an average of 35 units of Lantus per day over the past five days. I will change to this dose. * Post prandial BSGs are acceptable. No change to Novolog. 09/13: * Patient NPO last two midnights for possible per cath placement, nephrology hoping for no HD this admission, diet resumed * resume Lantus 40 units daily QAM tomorrow (had 30 units QAM last two days for NPO status during parts of the day) * Blood sugars at goal, no other changes at this time 09/11: * Patient received total of 48 units of insulin yesterday, of which 30 units were basal. He was NPO for most of day * Fasting BSG 128 mg/dL - will titrate up basal insulin carefully as Scr continues to trend upward. His fasting BSGs had been trending down on 54 units daily of Lantus, therefore feel that we should scale back * Will give 40 units Lantus this AM, may add scale for HS if trending upward PLAN FOR INPATIENT GLYCEMIC CONTROL: * Basal insulin * Lantus 35 units daily * Discontinue evening Lantus scale * Bolus insulin * NovoLog per scale ACHS or Q6hrs while NPO * Goal Range: Low 110 mg/dL - High 140 mg/dL * Correction Factor: 10 mg/dL/unit * Nutritional / Prandial insulin per carb ratio of 1 unit per 3 grams CHO consumed PLAN FOR DISCHARGE: * A1c 8.2% - goal for patient <7% * Plan of care will depend on if there is improvement in renal function or if dialysis is started. Will continue to follow trends to determine insulin needs.
--- NOTE | 2020-09-14 16:19 | Billing Data ---
Date of Service September 14, 2020 Coding Level of Care Code 72673 Subseq Hosp Care Lvl 3
[2020-09-14] MEDS: TAMSULOSIN HCL 0.4 MG CAP PO SCH (20:48)
[2020-09-14] MEDS: AMITRIPTYLINE HCL 25 MG TAB PO SCH (20:48)
[2020-09-15] MEDS: ACETAMINOPHEN 325 MG TAB PO PRN ×2 (02:05→23:42)
[2020-09-15] MEDS: AMPICILLIN 2,000 MG in SODIUM CHLOR 0.9% AD-VAN 100 ML IV SCH ×3 (03:37→19:52)
[2020-09-15] MEDS: HYDROmorphone INJ 0.5 MG/0.5 ML SYR IV PRN ×3 (03:44→23:42)
[2020-09-15] MEDS: HEPARIN SOD 5,000 UNIT/0.5 ML VIAL SQ SCH ×3 (05:18→21:07)
[2020-09-15 07:44] LABS: BUN Creatinine Ratio 12.1 (10-20); Calcium 8.4 mg/dl (8.5-10.1); Creatinine Clr Calc Pharmacy 26.9 ml/min; Est GFR (African American) 13.4 ml/min; Est GFR (Non-African American) 11.6 ml/min; Phosphorus 5.1 mg/dl (2.5-4.9); Potassium 4.8 mmol/L (3.5-5.1)
--- NOTE | 2020-09-15 08:23 | Hospitalist Progress Note ---
Date of Service September 15, 2020 Assessment & Plan (1) Sepsis: Lex Manzano is a 40 yo male with PMHx. significant for obesity, uncontrolled T2DM (A1c 8.2 in 07/2020), frequent cellulitis of lower extremities, HLD, CKD IV and UNIQUE. Patient was recently treated for strep bacteremia 2/2 LLE cellulitis in early August. He was admitted to [facility] on 09/05 for sepsis in the setting of another bout of LLE cellulitis. Sepsis 2/2 Group G Strep Bacteremia - stable - lactate of 6, ESR 68, CRP 20, WBC 26 on admission - BCx: Group G Beta Strep - MRI/CT L foot showing soft tissue edema tracking in forefoot, no osteomyelitis, - TTE/MYKE negative for vegetations per ID recommendation - Ampicillin 2g IV Q8h, renally adjusted. - previously did not finish full post-admission 2 week antibiotic coverage prior to this admission. Pulmonary Edema - resolved - initially requiring supplemental oxygen in setting of low normal LV sys fx - BNP elevated - generalized body wall edema - improved with lasix. - appears to have thick neck, clear UNIQUE BJ on CKD IV - baseline 3, Cr 4.83 on admission, worsened with bacteremia ATN - improved to 6.6 today - will likely require dialysis going forward - obstructive flow relieves with preston cath - left arm nephro precautions for future temp dialysis cath. MANAGER VAN if renal function worsens. - renal US neg - holding lisinopril. Constipation -BID miralax Left Foot Ulcer Suspect 2/2 uncontrolled diabetes. - wound care consult - podiatry consult per patient request - continue Lyrica 75mg PO BID - dose adjusted for renal function T2DM - A1c 8.2 on 09/06 - Lantus + SSI - pharmacy glycemic consult placed - appreciate recs HTN - resumed home Amlodipine/Carvedilol given improved BPs to 140s/90s and ongoing tachycardia - continue to hold Lisinopril given BJ HLD - Continue Atorvastatin 80mg PO QAM and Vascepa 2g PO BID Depression - continue home Bupropion 150mg PO QAM FEN/GI: DM2 diet DVT Prophylaxis: Heparin 5000 units SQ Q8H Code Status: Full code Disposition: med/surg. anticipate d/c home thursday with home health, home IV antibiotics for 4 weeks Admission and Anticipated Discharge Date Admission Date: September 05, 2020 Supervising Physician Co-Signing Physician Notes I personally saw and examined the patient. I verified all sauceda points and agree with Dr Peggy Montano, resident physician with the following exceptions and/or additions: No fevers or chills. O/E Erythema improving from marked area. A/P Strep Bacteremia with cellulitis - continue ampicillin Snoring - suspect obstructive sleep apnea, recommend outpatient study Subjective no complaints this AM. says he's feeling better each day. Calf pain reduced with moderate physical therapy. no worsening of rash. Review of Systems Review of Systems: All systems reviewed & are unremarkable except as noted in HPI & below Physical Exam Constitutional: well developed and + morbidly obese; no acute distress Eyes: no scleral abnormality and no corneal abnormality Neck: normal visual inspection and trachea midline Respiratory: normal respiratory effort Auscultation: lungs clear to auscultation bilaterally Cardiovascular: Rate/Rhythm: regular rate Heart Sounds: normal S1 and normal S2 Extremities: normal capillary refill and + pedal edema Gastrointestinal (Abdomen): Inspection/Auscultation: + abdomen distended and + significant pannus Percussion/Palpation: abdomen soft; abdomen nontender Musculoskeletal: Extremities: no cyanosis and no clubbing Skin: normal turgor; no lesions Neurologic: Motor/Sensory: no tremor and no asterixis Psychiatric: Orientation: alert and oriented x 3 Results & Data Results & Data ([facility]) Vital Signs (Past 12 Hours) Vital Signs Temp Pulse Pulse Resp BP Pulse Ox 09/15/20 07:55 36.7 C 90 20 154/93 H 93 09/14/20 22:31 36.8 C 87 16 123/80 94 09/14/20 20:45 18 132/86 91 Laboratory Results WBC 14.11 K/uL (4.8-10.8) H 09/14/20 06:43 RBC 3.09 M/uL (4.7-6.1) L 09/14/20 06:43 Hgb 8.5 g/dL (14.0-18.0) L 09/14/20 06:43 Hct 26.8 % (42-52) L 09/14/20 06:43 MCV 86.7 fL (80-100) 09/14/20 06:43 MCH 27.5 pg (25-34) 09/14/20 06:43 MCHC 31.7 g/dL (32-36) L 09/14/20 06:43 RDW Std Deviation 47.4 fL (36.4-46.3) H 09/14/20 06:43 RDW Coeff of Nicky 15.3 % (11.5-14.5) H 09/14/20 06:43 Plt Count 412 K/uL (130-400) H 09/14/20 06:43 MPV 11.4 fL (7.4-10.4) H 09/14/20 06:43 Immature Gran % (Auto) 9.8 % 09/14/20 06:43 Neut % (Auto) 62.7 % 09/14/20 06:43 Lymph % (Auto) 19.5 % 09/14/20 06:43 [place] % (Auto) 6.7 % 09/14/20 06:43 Eos % (Auto) 1.0 % 09/14/20 06:43 Baso % (Auto) 0.3 % 09/14/20 06:43 Neut # (Auto) 8.85 K/uL (1.4-6.5) H 09/14/20 06:43 Lymph # (Auto) 2.75 K/uL (1.2-3.4) 09/14/20 06:43 [place] # (Auto) 0.95 K/uL (0.11-0.59) H 09/14/20 06:43 Eos # (Auto) 0.14 K/uL (0-0.5) 09/14/20 06:43 Baso # (Auto) 0.04 K/uL (0-0.2) 09/14/20 06:43 Immature Gran # (Auto) 1.38 K/uL (0.00-0.02) H 09/14/20 06:43 Absolute Nucleated RBC 0.03 K/uL (0-0) H 09/14/20 06:43 Nucleated RBC % (auto) 0.2 % 09/14/20 06:43 Neutrophils % (Manual) 67.8 % 09/13/20 06:53 Lymphocytes % (Manual) 11.3 % 09/13/20 06:53 Monocytes % (Manual) 3.5 % 09/13/20 06:53 Eosinophils % (Manual) 1.7 % 09/13/20 06:53 Basophils % (Manual) 2.6 % 09/13/20 06:53 Metamyelocytes % (Man) 6.1 % 09/13/20 06:53 Myelocytes % (Man) 7.0 % 09/13/20 06:53 Neutrophils # (Manual) 9.07 K/uL (1.4-6.5) H 09/13/20 06:53 Total Absolute Neuts 9.07 K/uL (1.4-6.5) H 09/13/20 06:53 Lymphocytes # (Manual) 1.51 K/uL (1.2-3.4) 09/13/20 06:53 Total Abs Lymphocytes 1.51 K/uL (1.2-3.4) 09/13/20 06:53 Monocytes # (Manual) 0.47 K/uL (0.11-0.59) 09/13/20 06:53 Eosinophils # (Manual) 0.23 K/uL (0-0.5) 09/13/20 06:53 Basophils # (Manual) 0.35 K/uL (0-0.2) H 09/13/20 06:53 Metamyelocytes # (Man) 0.82 K/uL (0-0) H 09/13/20 06:53 Myelocytes # (Manual) 0.94 K/uL (0-0) H 09/13/20 06:53 Dohle Bodies 1+ 09/10/20 06:11 Polychromasia 1+ 09/14/20 06:43 ESR 68 mm/hr (0-15) H 09/06/20 05:59 PT 10.3 Seconds (9.0-12.0) 09/05/20 15:00 INR 1.0 (0.9-1.1) 09/05/20 15:00 APTT 25.1 Seconds (21.0-31.0) 09/05/20 15:00 PTT Ratio 1.0 09/05/20 15:00 Sodium 138 mmol/L (136-145) 09/15/20 06:39 Potassium 4.8 mmol/L (3.5-5.1) 09/15/20 06:39 Chloride 109 mmol/L (98-107) H 09/15/20 06:39 Carbon Dioxide 22 mmol/L (21-32) 09/15/20 06:39 Anion Gap 7.0 (3-11) 09/15/20 06:39 BUN 68 mg/dl (7-18) H 09/15/20 06:39 Creatinine 5.65 mg/dl (0.6-1.4) H* 09/15/20 06:39 Est Cr Clr Drug Dosing 26.9 ml/min 09/15/20 06:39 Est GFR ( Amer) 13.4 ml/min 09/15/20 06:39 Est GFR (Non-Af Amer) 11.6 ml/min 09/15/20 06:39 BUN/Creatinine Ratio 12.1 (-20) 09/15/20 06:39 Glucose 102 mg/dl (70-99) H 09/15/20 06:39 POC Glucose 136 mg/dl (70-99) H 09/15/20 12:10 Estimat Average Glucose 189 mg/dl 09/07/20 07:12 Hemoglobin A1c 8.2 % (4.5-5.6) H 09/07/20 07:12 Lactate 1.9 mmol/L (0.4-2.0) 09/06/20 07:47 Calcium 8.4 mg/dl (8.5-10.1) L 09/15/20 06:39 Phosphorus 5.1 mg/dl (2.5-4.9) H 09/15/20 06:39 Magnesium 2.7 mg/dl (1.8-2.4) H 09/10/20 06:11 Iron 31 mcg/dl (35-175) L 09/13/20 06:53 Transferrin 174 mg/dl (200-360) L 09/13/20 06:53 Transferrin % Sat 13 % (20-50) L 09/13/20 06:53 Ferritin 1283.0 ng/ml (8-388) H 09/13/20 06:53 Total Bilirubin 0.2 mg/dl (0.2-1) 09/14/20 06:43 AST 23 U/L (15-37) 09/14/20 06:43 ALT 50 U/L (12-78) 09/14/20 06:43 Alkaline Phosphatase 118 U/L (45-117) H 09/14/20 06:43 Total Creatine Kinase 127 U/L (39-308) 09/13/20 06:53 Troponin I 0.082 ng/ml (0-0.045) H* 09/06/20 05:59 C-Reactive Protein 15.60 mg/dl (0-0.29) H 09/10/20 06:12 NT-Pro-B Natriuret Pep 1487 pg/ml (0-450) H 09/09/20 11:03 Total Protein 7.5 gm/dl (6.4-8.2) 09/14/20 06:43 Albumin 2.0 gm/dl (3.4-5.0) L 09/15/20 06:39 Globulin 5.6 gm/dl (2.5-4.0) H 09/14/20 06:43 Albumin/Globulin Ratio 0.3 (0.9-2) L 09/14/20 06:43 Procalcitonin 0.36 ng/ml (0-0.5) 09/14/20 06:43 Urine Color Yellow 09/05/20 22:38 Urine Appearance Clear (Clear) 09/05/20 22:38 Urine pH 5.5 (4.5-7.5) 09/05/20 22:38 Ur Specific [place] 1.026 (1.000-1.030) 09/05/20 22:38 Urine Protein 4+ (Negative) H 09/05/20 22:38 Urine Glucose (UA) 2+ (Negative) H 09/05/20 22:38 Urine Ketones Trace (Negative) H 09/05/20 22:38 Urine Blood 2+ (Negative) H 09/05/20 22:38 Urine Nitrite Negative (Negative) 09/05/20 22:38 Urine Bilirubin Negative (Negative) 09/05/20 22:38 Urine Urobilinogen Negative (Negative) 09/05/20 22:38 Ur Leukocyte Esterase Negative (Negative) 09/05/20 22:38 Urine WBC (Auto) 5-10 /hpf (0-5) H 09/05/20 22:38 Urine RBC (Auto) 0-4 /hpf (0-4) 09/05/20 22:38 U Hyaline Cast (Auto) 0 /lpf (0-5) 09/05/20 22:38 U Epithel Cells (Auto) >30 /lpf (0-5) H 09/05/20 22:38 Urine Bacteria (Auto) Negative (Negative) 09/05/20 22:38 Ur Renal Epithelial Cell Not Reportable 09/05/20 22:38 Urine Opiates Screen Pos (Neg) H 09/05/20 22:38 U Codeine Confrm GC/MS NEGATIVE ng/mL (<50) 09/05/20 22:38 Ur Morphine (GC/MS) 715 ng/mL (<50) H 09/05/20 22:38 Ur Hydrocodone (GC/MS) NEGATIVE ng/mL (<50) 09/05/20 22:38 Ur Norhydrocodone NEGATIVE ng/mL (<50) 09/05/20 22:38 Ur Noroxycodone NEGATIVE ng/mL (<50) 09/05/20 22:38 Urine Oxycodone (GC/MS) NEGATIVE ng/mL (<50) 09/05/20 22:38 U Oxymorphone GC/MS NEGATIVE ng/mL (<50) 09/05/20 22:38 Ur Methadone, Qual Neg (Neg) 09/05/20 22:38 Ur Hydromorphone (GC/MS) NEGATIVE ng/mL (<50) 09/05/20 22:38 Urine Barbiturates Neg (Neg) 09/05/20 22:38 Ur Phencyclidine (PCP) Neg (Neg) 09/05/20 22:38 U Amphetamin/Meth Scrn Neg (Neg) 09/05/20 22:38 MDMA (Ecstasy) Screen Neg (Neg) 09/05/20 22:38 U Benzodiazepines Scrn Neg (Neg) 09/05/20 22:38 Ur Cocaine Metabolite Neg (Neg) 09/05/20 22:38 U Marijuana (THC) Screen Pos (Neg) H 09/05/20 22:38 U Marijuana THC Carboxy 519 ng/mL (<5) H 09/05/20 22:38 Drug Screen Comment SEE NOTE 09/05/20 22:38 COVID-19 Eval Order Covid19 at [facility] 09/05/20 15:45 SARS-CoV-2 (PCR) NEGATIVE (Negative) 09/05/20 15:45 Impressions Tibia/Fibula X-Ray 09/05/20 16:53 LEFT TIBIA AND FIBULA 2 VIEWS CLINICAL HISTORY: Cellulitis. FINDINGS: AP and lateral views of the left tibia and fibula are correlated with CT of the left tibia and fibula dated 08/04/2020. The skeletal structures are osteopenic. There is no radiographic evidence of left tibial or fibular fracture. There is no bony erosion or periostitis. The knee and ankle joints are grossly maintained. Soft tissue edema is present throughout the left lower extremity. Advanced atherosclerotic calcification is noted in the regional arteries. No soft tissue gas is seen. Numerous soft tissue calcifications are noted. There is a large dorsal calcaneal enthesophyte. IMPRESSION: Soft tissue edema with no acute bony abnormality identified. Foot MRI 09/07/20 17:51 MR foot LT w/o con CLINICAL HISTORY: Left lateral foot wound. Assess for osteoarthritis. COMPARISON STUDY: Left foot MRI 08/10/2020.. Left foot radiographs August 03, 2020. TECHNIQUE: Utilizing a 1.5 Lyubov magnet and dedicated coil, multiplanar, multi echo imaging of the left forefoot was performed without intravenous contrast. FINDINGS: No significant change in the small wound/skin ulceration along the plantar lateral aspect of the left fifth metatarsal head. There is mild T2 signal within the adjacent soft tissues suggestive of cellulitis. No fluid collection is identified on this unenhanced exam to suggest an abscess. There is slight marrow edema within the ventral aspect of the left fifth metatarsal head. T1 signal is preserved. There is no MR evidence for osteomyelitis within the left forefoot. Tarsometatarsal joints are intact. Dorsal subcutaneous edema is present. No suspicious osseous lesions are present. No erosions are identified. No masses identified on this unenhanced exam. There is progressive subcutaneous edema along the dorsum of the forefoot has also diffuse increased T2 signal/edema throughout the muscles of the forefoot. This most pronounced within the plantar muscles. This is also similar to the prior study. This could be secondary to a nonspecific myositis or denervation injury. IMPRESSION: 1. No significant change in the focal skin ulceration/wound along the plantar lateral aspect of the left fifth metatarsal head. Mild associated cellulitis with no abscess. 2. Minimal edema within the plantar aspect of the left fifth metatarsal head with preserved T1 signal. This remains unchanged. No MR evidence for osteomyelitis. 3. Progressive dorsal subcutaneous trace edema throughout the forefoot. 4. Diffuse increased T2 signal/edema throughout the muscles of the forefoot most pronounced along the plantar muscles. This is consistent with a nonspecific myositis or denervation injury. This is also similar to the prior study. Chest X-Ray 09/09/20 10:31 XR chest 1V portable HISTORY: Shortness of breath. assess for pulm edema COMPARISON: Chest 09/05/2020. FINDINGS: No pneumothorax. The heart remains enlarged. There is interval development of perihilar interstitial/vascular thickening and trace bilateral pleural effusions. This consistent with moderate pulmonary edema. IMPRESSION: Cardiomegaly with moderate pulmonary edema and trace bilateral pleural effusions. Renal Ultrasound 09/10/20 11:04 US renal/blad retro comp HISTORY: 40 years-old Male BJ, f/u OROZCO, b/l ? hydro acute kidney injury COMPARISON: Renal ultrasound 09/09/2020 TECHNIQUE: Multiple real-time sonographic images of the kidneys and urinary bladder were obtained assessing grayscale appearance and color flow FINDINGS: Limited exam secondary to patient body habitus. The right kidney measures 13.2 x 6.7 x 7.2 cm. No right-sided renal calculi, hydronephrosis or suspicious mass lesion. Left kidney measures 11.7 x 7.4 x 7.1 cm. No left-sided renal calculi, hydronephrosis or suspicious mass lesion. Decompressed urinary bladder with Preston catheter. IMPRESSION: Unremarkable renal ultrasound. ACT 112: Negative or not required by law. Abdomen/Pelvis CT 09/10/20 13:[address] WITHOUT CONTRAST CT DOSE: 2392.58 mGy.cm HISTORY: Follow up study in a patient with history of hydronephrosis bilateral hydronephrosis TECHNIQUE: Multiaxial CT images of the abdomen and pelvis were performed without contrast. A dose lowering technique was utilized adhering to the principles of ALARA. COMPARISON STUDY: Renal ultrasound 09/10/2020, CT abdomen and pelvis 01/11/2020 FINDINGS: Motion degraded exam. Small left and small to moderate right pleural effusions. Dependent bibasilar consolidation. Intralobular septal thickening with intermixed groundglass and consolidative opacities are partially imaged. Coronary artery calcifications. Imaged inferior cardiac chambers are otherwise unremarkable. There is no pneumatosis or pneumoperitoneum. Unremarkable spleen, pancreas and adrenal glands. Cholecystectomy. Hepatomegaly with hepatic steatosis. No evidence of cirrhosis. Trace perihepatic ascites. Mild nonspecific perinephric stranding. No renal or ureteral calculi or hydronephrosis.. Decompressed urinary bladder with wall thickening. A Preston catheter is present. Calcifications of the vas deferens. Unremarkable aorta and IVC. Nonspecific prominent and mildly enlarged inguinal chain lymph nodes measure up to 12 mm on the left and 9 mm on the right. No bowel obstruction or bowel wall thickening. Normal appendix. Mild generalized body wall edema. Degenerative changes of the spine. Tiny sclerotic foci of the proximal femora are suggestive of probable bone islands. Mild lumbar levoscoliosis. IMPRESSION: 1. No bowel obstruction or bowel wall thickening. Normal appendix. 2. No renal or ureteral calculi or hydronephrosis. 3. Fluid overload with right greater than left pleural effusions, mild generalized body wall edema and trace abdominal ascites. 4. Interstitial pulmonary edema with scattered groundglass and consolidative opacities of the lung bases suggestive of alveolar pulmonary edema versus pneumonia. 5. Hepatomegaly with hepatic steatosis. ACT 112: Negative or not required by law. Venous Doppler Study 09/13/20 18:01 BILATERAL LOWER EXTREMITY VENOUS DOPPLER HISTORY: Bilateral leg pain. COMPARISON STUDY: None. FINDINGS: There is normal compressibility, flow, and augmentation within the bilateral lower extremity deep venous systems. IMPRESSION: No DVT within the right or left lower extremity. ACT 112: Negative or not required by law. Electronically signed by: Ken Robbins M.D. 09/14/2020 7:17 AM Resident Activity Tracking Resident Involvement: Resident Care Provided Care Provided: Adult Hospital Medicine (1) Sepsis Sepsis acute organ dysfunction status: without acute organ dysfunction Sepsis type: sepsis due to unspecified organism Qualified Code(s): A41.9 - Sepsis, unspecified organism
[2020-09-15] MEDS ORDERED: INSULIN GLARGINE SOLOSTAR 100 UNITS/ML 3 ML PEN SC SCH ×2 (09:00)
[2020-09-15] MEDS: POLYETHYLENE (MIRALAX) 17 GM PACK PO SCH ×2 (09:54→20:35)
[2020-09-15] MEDS: amLODIPine BESYLATE 5 MG TAB PO SCH (09:55)
[2020-09-15] MEDS: carvediloL 25 MG TAB PO SCH ×2 (09:55→20:32)
[2020-09-15] MEDS: CALCIUM ACETATE 667 MG CAP/TAB PO SCH ×3 (09:55→18:29)
[2020-09-15] MEDS: OMEGA-3 (PURIFIED FISH OIL) 1 GM CAP PO SCH ×2 (09:56→20:32)
[2020-09-15] MEDS: ATORVASTATIN 40 MG TAB PO SCH (09:56)
[2020-09-15] MEDS: buPROPion SR 150 MG TABCR PO SCH (09:56)
[2020-09-15] MEDS: INSULIN ASPART 100 UNITS/ML 3 ML PEN SC SCH ×4 (10:02→21:45)
[2020-09-15] MEDS: PREGABALIN 75 MG CAP PO SCH ×2 (10:07→20:35)
--- NOTE | 2020-09-15 11:57 | Pharmacy Report ---
Pharmacy Glycemic Short Note 2 - Date of Service September 15, 2020 - Glycemic Short BSG Results (Last 24 hours): 09/14/20 09/14/20 09/14/20 12:23 17:16 20:33 Glucose POC Glucose 108 H 99 76 09/15/20 09/15/20 06:39 08:21 Glucose 102 H POC Glucose 113 H OUTPATIENT ANTIDIABETIC REGIMEN: * Basaglar (insulin glargine) 54 units SQ BID * NovoLog TIDM (up to 100 units/day) * Ozempic * A1c = 8.2% on 08/04/20 ASSESSMENT: 09/15/20 * Patient received 98 units of insulin yesterday * 40 units of basal * 58 units of bolus * BSGs ranging from 76 - 129 mg/dL * Fasting BSG of 113 mg/dL is AT goal BUT fasting BSGs are trending down so reduce dose by half as all BSGs yesterday were below 130 mg/dL. Concern for accumulation. * Post prandial BSGs are trending downwards. Loosen Novolog. 09/14: * Patient received 75 units of insulin yesterday * 30 units of basal * 45 units of bolus * BSGs ranging from 112 - 159 mg/dL * Fasting BSG of 129 mg/dL is near goal. He has received an average of 35 units of Lantus per day over the past five days. I will change to this dose. * Post prandial BSGs are acceptable. No change to Novolog. 09/13: * Patient NPO last two midnights for possible per cath placement, nephrology h oping for no HD this admission, diet resumed * resume Lantus 40 units daily QAM tomorrow (had 30 units QAM last two days for NPO status during parts of the day) * Blood sugars at goal, no other changes at this time 09/11: * Patient received total of 48 units of insulin yesterday, of which 30 units were basal. He was NPO for most of day * Fasting BSG 128 mg/dL - will titrate up basal insulin carefully as Scr continues to trend upward. His fasting BSGs had been trending down on 54 units daily of Lantus, therefore feel that we should scale back * Will give 40 units Lantus this AM, may add scale for HS if trending upward PLAN FOR INPATIENT GLYCEMIC CONTROL: * Basal insulin * Lantus 20 units daily * Bolus insulin * NovoLog per scale ACHS or Q6hrs while NPO * Goal Range: Low 110 mg/dL - High 140 mg/dL * Correction Factor: 12 mg/dL/unit * Nutritional / Prandial insulin per carb ratio of 1 unit per 5 grams CHO consumed PLAN FOR DISCHARGE: * A1c 8.2% - goal for patient <7% * Plan of care will depend on if there is improvement in renal function or if dialysis is started. Will continue to follow trends to determine insulin needs.
--- NOTE | 2020-09-15 12:00 | Nephrology Progress Note ---
Date of Service September 15, 2020 Assessment & Plan (1) Acute kidney injury: BJ in the setting of sepsis/ATN and bladder outlet obstruction and b/l hydro, resolved after placement of Patten catheter. Non-oliguric with continued renal recovery. Electrolytes acceptable. Patten remains intact. No emergent indication for dialysis. Document I/O's and repeat metabolic profile tomorrow AM. Medications appropriately dosed for kidney function. (2) Sepsis: Sepsis secondary to strep bacteremia and left lower extremity cellulitis. Remains on ampicillin. MRI negative for osteomyelitis. MYKE negative for endocarditis. (3) Cellulitis of left lower extremity: (4) Chronic kidney disease, stage 4 (severe): Secondary to diabetic nephropathy. Baseline creatinine ~3. Repeated episodes of acute kidney injury. Goals of care and potential indications for [facility] [employer] reviewed. (5) Hypertension: BP and volume status acceptable. (6) Bacteremia due to Streptococcus: Admission and Anticipated Discharge Date Admission Date: September 05, 2020 Subjective No acute events overnight. Some discomfort with urinary catheter overnight. Improved this AM. No complaints this AM. Review of Systems Review of Systems: All systems reviewed & are unremarkable except as noted in HPI & below Physical Exam Constitutional: well developed and + morbidly obese; no acute distress Eyes: no scleral abnormality and no corneal abnormality ENMT: Mouth: no oral mucosal abnormality and oral mucous membranes not dry Neck: normal visual inspection and trachea midline Respiratory: normal respiratory effort Auscultation: lungs clear to auscultation bilaterally Cardiovascular: Rate/Rhythm: regular rate Heart Sounds: normal S1 and normal S2 Extremities: no edema Musculoskeletal: Extremities: no cyanosis and no clubbing Skin: normal turgor; no lesions Neurologic: Motor/Sensory: no tremor and no asterixis Psychiatric: Orientation: alert and oriented x 3 Results & Data ([facility]) Vital Signs (Past 12 Hours) Vital Signs Temp Pulse Resp BP Pulse Ox 09/15/20 11:49 36.4 C L 90 20 161/90 H 94 09/15/20 07:55 36.7 C 90 20 154/93 H 93 Laboratory Results Laboratory Results - last 24 hr 09/14/20 09/14/20 09/14/20 12:23 17:16 20:33 Sodium Potassium Chloride Carbon Dioxide Anion Gap BUN Creatinine Est Cr Clr Drug Dosing Est GFR ( Amer) Est GFR (Non-Af Amer) BUN/Creatinine Ratio Glucose POC Glucose 108 H 99 76 Calcium Phosphorus Albumin 09/15/20 09/15/20 06:39 08:21 Sodium 138 Potassium 4.8 Chloride 109 H Carbon Dioxide 22 Anion Gap 7.0 BUN 68 H Creatinine 5.65 H* Est Cr Clr Drug Dosing 26.9 Est GFR ( Amer) 13.4 Est GFR (Non-Af Amer) 11.6 BUN/Creatinine Ratio 12.1 Glucose 102 H POC Glucose 113 H Calcium 8.4 L Phosphorus 5.1 H Albumin 2.0 L PG Care Time/CCT Total # of Minutes Spent Total Time Spent with Patient: Total time spent is greater than 50% in c oordination of care (as documented) at patient's floor/unit and/or counseling patient: Coding Level of Care Code 37911 Subseq Hosp Care Lvl 3 Diagnoses Acute kidney injury N17.9 Sepsis A41.9 Sepsis acute organ dysfunction status: without acute organ dysfunction Sepsis type: sepsis due to unspecified organism Cellulitis of left lower extremity L03.116 Chronic kidney disease, stage 4 (severe) N18.4 Hypertension I10 Bacteremia due to Streptococcus R78.81; B95.5 (1) Sepsis Sepsis acute organ dysfunction status: without acute organ dysfunction Sepsis type: sepsis due to unspecified organism Qualified Code(s): A41.9 - Sepsis, unspecified organism
[2020-09-15] MEDS: TAMSULOSIN HCL 0.4 MG CAP PO SCH (20:32)
[2020-09-15] MEDS: AMITRIPTYLINE HCL 25 MG TAB PO SCH (20:32)
--- NOTE | 2020-09-15 21:21 | Ultrasound Report ---
US arterial duplex LE LT CLINICAL HISTORY: 40 years-old Male presenting with osteomyelitis. TECHNIQUE: Real-time grayscale ultrasound imaging of the vascular arterial structures of the left low er extremity. was performed for a focused evaluation at the site of clinical concern. COMPARISON: None. FINDINGS: Minimal atherosclerotic involvement is seen within left lower extremity arteries. Triphasic waveform are seen with normal velocities and no evidence of occlusion or significant stenosis. IMPRESSION: 1. No focal occlusion or significant stenosis. ACT 112: Negative or not required by law. Electronically signed by: Do Clark DO 09/15/2020 9:20 PM
[2020-09-16] MEDS: HEPARIN SOD 5,000 UNIT/0.5 ML VIAL SQ SCH ×3 (05:00→22:10)
[2020-09-16] MEDS: AMPICILLIN 2,000 MG in SODIUM CHLOR 0.9% AD-VAN 100 ML IV SCH ×3 (05:00→19:48)
[2020-09-16] MEDS: amLODIPine BESYLATE 5 MG TAB PO SCH (08:23)
[2020-09-16] MEDS: CALCIUM ACETATE 667 MG CAP/TAB PO SCH ×3 (08:23→17:57)
[2020-09-16] MEDS: OMEGA-3 (PURIFIED FISH OIL) 1 GM CAP PO SCH ×2 (08:24→20:41)
[2020-09-16] MEDS: carvediloL 25 MG TAB PO SCH ×2 (08:24→20:42)
[2020-09-16] MEDS: buPROPion SR 150 MG TABCR PO SCH (08:24)
[2020-09-16] MEDS: ATORVASTATIN 40 MG TAB PO SCH (08:24)
[2020-09-16] MEDS: POLYETHYLENE (MIRALAX) 17 GM PACK PO SCH ×2 (08:25→20:42)
[2020-09-16] MEDS: PREGABALIN 75 MG CAP PO SCH ×2 (08:25→20:45)
--- NOTE | 2020-09-16 08:45 | Hospitalist Progress Note ---
Date of Service September 16, 2020 Assessment & Plan (1) Sepsis: Lex Manzano is a 40 yo male with PMHx. significant for obesity, uncontrolled T2DM (A1c 8.2 in 07/2020), frequent cellulitis of lower extremities, HLD, CKD IV and UNIQUE. Patient was recently treated for strep bacteremia 2/2 LLE cellulitis in early August. He was admitted to [facility] on 09/05 for sepsis in the setting of another bout of the same LLE cellulitis. Sepsis 2/2 Group G Strep Bacteremia - improving - BCx: Group G Beta Strep, pansensitive - MRI/CT L foot showing soft tissue edema tracking in forefoot, no osteomyelitis, - TTE/MYKE negative for vegetations - Ampicillin 2g IV Q8h, renally adjusted - previously did not finish full post-admission 2 week antibiotic coverage prior to this admission. - treated since 09/05, will need to complete extended course of antibiotics given previous failure, extensive venous insufficiency. last dose 10/07. - Case management setting up home antibiotics access. BJ on CKD IV - baseline 3, Cr 4.83 on admission, worsened with bacteremia ATN - improved to 5.33 today - can do voiding trial for removal of preston - left arm nephro precautions for future temp dialysis cath. 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 - renal US neg - holding lisinopril. - appreciate nephrology's continuing recommendations Pulmonary Edema - resolved - EF 50-55%, elevated BNP, body wall edema, - improved with lasix. - lasix discontinued due to worsening BJ - overnight O2 test with mornign ABG for CPAP coverage at home prior to discharge Constipation -BID miralax Left Foot Ulcer 2/2 uncontrolled DM2 - wound care consult - podiatry consult per patient request - continue Lyrica 75mg PO BID - dose adjusted for renal function - no osteomyelitis per foot MRI T2DM - A1c 8.2 on 09/06 - Lantus + SSI - pharmacy glycemic consult placed HTN - continue amlodipine, carvedilol - continue to hold Lisinopril given BJ HLD - Continue Atorvastatin 80mg PO QAM and Vascepa 2g PO BID Depression - continue home Bupropion 150mg PO QAM FEN/GI: DM2 diet DVT Prophylaxis: Heparin 5000 units SQ Q8H Code Status: Full code Disposition: med/surg. anticipate d/c home 09/17 with home health, home IV antibiotics until 10/07. Admission and Anticipated Discharge Date Admission Date: September 05, 2020 Supervising Physician Co-Signing Physician Notes I personally saw and examined the patient. I verified all sauceda points and agree with Dr Peggy Montano, resident physician with the following exceptions and/or additions: No fevers or chills. No questions or concerns. O/E - Improved cellulitis from marked area, HS RRR, no murmurs, Chest CTAB A/P Cellulitis/Strep bacteremia - continue ampicillin, likely can be discharged tomorrow BJ - continues to improve, appreciate nephrology fluid management Subjective no acute events overnight. continues to feel well. Review of Systems Review of Systems: All systems reviewed & are unremarkable except as noted in HPI & below Physical Exam Constitutional: well developed and + morbidly obese; no acute distress Neck: normal visual inspection and trachea midline Respiratory: normal respiratory effort Auscultation: lungs clear to auscultation bilaterally Cardiovascular: Rate/Rhythm: regular rate Heart Sounds: normal S1 and normal S2 Extremities: normal capillary refill and + pedal edema Gastrointestinal (Abdomen): Inspection/Auscultation: + abdomen distended and + significant pannus Percussion/Palpation: abdomen soft; abdomen nontender Musculoskeletal: Extremities: no cyanosis and no clubbing Skin: cellulitis receding from marked area of skin on [place]. edema slowly improving. Neurologic: Motor/Sensory: no tremor and no asterixis Psychiatric: Orientation: alert and oriented x 3 Results & Data Results & Data ([facility]) Vital Signs (Past 12 Hours) Vital Signs Temp Pulse Pulse Resp BP BP Pulse Ox 09/16/20 07:37 36.4 C L 81 20 127/81 91 09/15/20 22:40 36.6 C 81 20 126/77 90 Laboratory Results WBC 11.90 K/uL (4.8-10.8) H 09/16/20 08:13 RBC 3.34 M/uL (4.7-6.1) L 09/16/20 08:13 Hgb 9.2 g/dL (14.0-18.0) L 09/16/20 08:13 Hct 29.5 % (42-52) L 09/16/20 08:13 MCV 88.3 fL (80-100) 09/16/20 08:13 MCH 27.5 pg (25-34) 09/16/20 08:13 MCHC 31.2 g/dL (32-36) L 09/16/20 08:13 RDW Std Deviation 49.8 fL (36.4-46.3) H 09/16/20 08:13 RDW Coeff of Nicky 15.7 % (11.5-14.5) H 09/16/20 08:13 Plt Count 387 K/uL (130-400) 09/16/20 08:13 MPV 11.0 fL (7.4-10.4) H 09/16/20 08:13 Immature Gran % (Auto) 1.9 % 09/16/20 08:13 Neut % (Auto) 72.4 % 09/16/20 08:13 Lymph % (Auto) 18.4 % 09/16/20 08:13 [place] % (Auto) 5.9 % 09/16/20 08:13 Eos % (Auto) 1.1 % 09/16/20 08:13 Baso % (Auto) 0.3 % 09/16/20 08:13 Neut # (Auto) 8.61 K/uL (1.4-6.5) H 09/16/20 08:13 Lymph # (Auto) 2.19 K/uL (1.2-3.4) 09/16/20 08:13 [place] # (Auto) 0.70 K/uL (0.11-0.59) H 09/16/20 08:13 Eos # (Auto) 0.13 K/uL (0-0.5) 09/16/20 08:13 Baso # (Auto) 0.04 K/uL (0-0.2) 09/16/20 08:13 Immature Gran # (Auto) 0.23 K/uL (0.00-0.02) H 09/16/20 08:13 Absolute Nucleated RBC 0.03 K/uL (0-0) H 09/14/20 06:43 Nucleated RBC % (auto) 0.2 % 09/14/20 06:43 Neutrophils % (Manual) 67.8 % 09/13/20 06:53 Lymphocytes % (Manual) 11.3 % 09/13/20 06:53 Monocytes % (Manual) 3.5 % 09/13/20 06:53 Eosinophils % (Manual) 1.7 % 09/13/20 06:53 Basophils % (Manual) 2.6 % 09/13/20 06:53 Metamyelocytes % (Man) 6.1 % 09/13/20 06:53 Myelocytes % (Man) 7.0 % 09/13/20 06:53 Neutrophils # (Manual) 9.07 K/uL (1.4-6.5) H 09/13/20 06:53 Total Absolute Neuts 9.07 K/uL (1.4-6.5) H 09/13/20 06:53 Lymphocytes # (Manual) 1.51 K/uL (1.2-3.4) 09/13/20 06:53 Total Abs Lymphocytes 1.51 K/uL (1.2-3.4) 09/13/20 06:53 Monocytes # (Manual) 0.47 K/uL (0.11-0.59) 09/13/20 06:53 Eosinophils # (Manual) 0.23 K/uL (0-0.5) 09/13/20 06:53 Basophils # (Manual) 0.35 K/uL (0-0.2) H 09/13/20 06:53 Metamyelocytes # (Man) 0.82 K/uL (0-0) H 09/13/20 06:53 Myelocytes # (Manual) 0.94 K/uL (0-0) H 09/13/20 06:53 Dohle Bodies 1+ 09/10/20 06:11 Polychromasia 1+ 09/16/20 08:13 ESR 68 mm/hr (0-15) H 09/06/20 05:59 PT 10.3 Seconds (9.0-12.0) 09/05/20 15:00 INR 1.0 (0.9-1.1) 09/05/20 15:00 APTT 25.1 Seconds (21.0-31.0) 09/05/20 15:00 PTT Ratio 1.0 09/05/20 15:00 Sodium 140 mmol/L (136-145) 09/16/20 08:13 Potassium 5.0 mmol/L (3.5-5.1) 09/16/20 08:13 Chloride 109 mmol/L (98-107) H 09/16/20 08:13 Carbon Dioxide 25 mmol/L (21-32) 09/16/20 08:13 Anion Gap 6.0 (3-11) 09/16/20 08:13 BUN 64 mg/dl (7-18) H 09/16/20 08:13 Creatinine 5.33 mg/dl (0.6-1.4) H* D 09/16/20 08:13 Est Cr Clr Drug Dosing 28.5 ml/min 09/16/20 08:13 Est GFR ( Amer) 14.4 ml/min 09/16/20 08:13 Est GFR (Non-Af Amer) 12.4 ml/min 09/16/20 08:13 BUN/Creatinine Ratio 12.0 (10-20) 09/16/20 08:13 Glucose 130 mg/dl (70-99) H 09/16/20 08:13 POC Glucose 135 mg/dl (70-99) H 09/16/20 12:14 Estimat Average Glucose 189 mg/dl 09/07/20 07:12 Hemoglobin A1c 8.2 % (4.5-5.6) H 09/07/20 07:12 Lactate 1.9 mmol/L (0.4-2.0) 09/06/20 07:47 Calcium 8.6 mg/dl (8.5-10.1) 09/16/20 08:13 Phosphorus 5.1 mg/dl (2.5-4.9) H 09/15/20 06:39 Magnesium 2.7 mg/dl (1.8-2.4) H 09/10/20 06:11 Iron 31 mcg/dl (35-175) L 09/13/20 06:53 Transferrin 174 mg/dl (200-360) L 09/13/20 06:53 Transferrin % Sat 13 % (20-50) L 09/13/20 06:53 Ferritin 1283.0 ng/ml (8-388) H 09/13/20 06:53 Total Bilirubin 0.3 mg/dl (0.2-1) 09/16/20 08:13 AST 18 U/L (15-37) 09/16/20 08:13 ALT 36 U/L (12-78) 09/16/20 08:13 Alkaline Phosphatase 107 U/L (45-117) 09/16/20 08:13 Total Creatine Kinase 127 U/L (39-308) 09/13/20 06:53 Troponin I 0.082 ng/ml (0-0.045) H* 09/06/20 05:59 C-Reactive Protein 15.60 mg/dl (0-0.29) H 09/10/20 06:12 NT-Pro-B Natriuret Pep 1487 pg/ml (0-450) H 09/09/20 11:03 Total Protein 8.0 gm/dl (6.4-8.2) 09/16/20 08:13 Albumin 2.1 gm/dl (3.4-5.0) L 09/16/20 08:13 Globulin 5.9 gm/dl (2.5-4.0) H 09/16/20 08:13 Albumin/Globulin Ratio 0.4 (0.9-2) L 09/16/20 08:13 Procalcitonin 0.36 ng/ml (0-0.5) 09/14/20 06:43 Urine Color Yellow 09/05/20 22:38 Urine Appearance Clear (Clear) 09/05/20 22:38 Urine pH 5.5 (4.5-7.5) 09/05/20 22:38 Ur Specific [place] 1.026 (1.000-1.030) 09/05/20 22:38 Urine Protein 4+ (Negative) H 09/05/20 22:38 Urine Glucose (UA) 2+ (Negative) H 09/05/20 22:38 Urine Ketones Trace (Negative) H 09/05/20 22:38 Urine Blood 2+ (Negative) H 09/05/20 22:38 Urine Nitrite Negative (Negative) 09/05/20 22:38 Urine Bilirubin Negative (Negative) 09/05/20 22:38 Urine Urobilinogen Negative (Negative) 09/05/20 22:38 Ur Leukocyte Esterase Negative (Negative) 09/05/20 22:38 Urine WBC (Auto) 5-10 /hpf (0-5) H 09/05/20 22:38 Urine RBC (Auto) 0-4 /hpf (0-4) 09/05/20 22:38 U Hyaline Cast (Auto) 0 /lpf (0-5) 09/05/20 22:38 U Epithel Cells (Auto) >30 /lpf (0-5) H 09/05/20 22:38 Urine Bacteria (Auto) Negative (Negative) 09/05/20 22:38 Ur Renal Epithelial Cell Not Reportable 09/05/20 22:38 Urine Opiates Screen Pos (Neg) H 09/05/20 22:38 U Codeine Confrm GC/MS NEGATIVE ng/mL (<50) 09/05/20 22:38 Ur Morphine (GC/MS) 715 ng/mL (<50) H 09/05/20 22:38 Ur Hydrocodone (GC/MS) NEGATIVE ng/mL (<50) 09/05/20 22:38 Ur Norhydrocodone NEGATIVE ng/mL (<50) 09/05/20 22:38 Ur Noroxycodone NEGATIVE ng/mL (<50) 09/05/20 22:38 Urine Oxycodone (GC/MS) NEGATIVE ng/mL (<50) 09/05/20 22:38 U Oxymorphone GC/MS NEGATIVE ng/mL (<50) 09/05/20 22:38 Ur Methadone, Qual Neg (Neg) 09/05/20 22:38 Ur Hydromorphone (GC/MS) NEGATIVE ng/mL (<50) 09/05/20 22:38 Urine Barbiturates Neg (Neg) 09/05/20 22:38 Ur Phencyclidine (PCP) Neg (Neg) 09/05/20 22:38 U Amphetamin/Meth Scrn Neg (Neg) 09/05/20 22:38 MDMA (Ecstasy) Screen Neg (Neg) 09/05/20 22:38 U Benzodiazepines Scrn Neg (Neg) 09/05/20 22:38 Ur Cocaine Metabolite Neg (Neg) 09/05/20 22:38 U Marijuana (THC) Screen Pos (Neg) H 09/05/20 22:38 U Marijuana THC Carboxy 519 ng/mL (<5) H 09/05/20 22:38 Drug Screen Comment SEE NOTE 09/05/20 22:38 COVID-19 Eval Order Covid19 at [facility] 09/05/20 15:45 SARS-CoV-2 (PCR) NEGATIVE (Negative) 09/05/20 15:45 Impressions Tibia/Fibula X-Ray 09/05/20 16:53 : Soft tissue edema with no acute bony abnormality identified. Osteopenic skeletal structures. Foot MRI 09/07/20 17:51 : 1. No significant change in the focal skin ulceration/wound along the plantar lateral aspect of the left fifth metatarsal head. Mild associated cellulitis with no abscess. 2. Minimal edema within the plantar aspect of the left fifth metatarsal head with preserved T1 signal. This remains unchanged. No MR evidence for osteomyelitis. 3. Progressive dorsal subcutaneous trace edema throughout the forefoot. 4. Diffuse increased T2 signal/edema throughout the muscles of the forefoot most pronounced along the plantar muscles. This is consistent with a nonspecific myositis or denervation injury. This is also similar to the prior study. Chest X-Ray 09/09/20 10:31: Cardiomegaly with moderate pulmonary edema and trace bilateral pleural effusions. Renal Ultrasound 09/10/20 11:04: Unremarkable renal ultrasound. Abdomen/Pelvis CT w/o con 09/10/20 13:22: 1. No bowel obstruction or bowel wall thickening. Normal appendix. 2. No renal or ureteral calculi or hydronephrosis. 3. Fluid overload with right greater than left pleural effusions, mild generalized body wall edema and trace abdominal ascites. 4. Interstitial pulmonary edema with scattered groundglass and consolidative opacities of the lung bases suggestive of alveolar pulmonary edema versus pneumonia. 5. Hepatomegaly with hepatic steatosis. Venous Doppler Study 09/13/20 18:01: No DVT within the right or left lower extremity. Duplex Scan Lower Extremity Artery 09/15/20 14:22: No focal occlusion or sig nificant stenosis. Resident Activity Tracking Resident Involvement: Resident Care Provided Care Provided: Adult Hospital Medicine (1) Sepsis Sepsis acute organ dysfunction status: without acute organ dysfunction Sepsis type: sepsis due to unspecified organism Qualified Code(s): A41.9 - Sepsis, unspecified organism
[2020-09-16 08:46] LABS: Hematocrit (blood only) 29.5 % (42-52); Hemoglobin 9.2 g/dL (14.0-18.0); Mean Corpuscular Hemoglobin 27.5 pg (25-34); Mean Corpuscular Hgb Conc 31.2 g/dL (32-36); Mean Corpuscular Volume 88.3 fL (80-100); Platelet Count 387 K/uL (130-400); RDW Coefficient of Variation 15.7 % (11.5-14.5); RDW Standard Deviation 49.8 fL (36.4-46.3); Red Blood Count 3.34 M/uL (4.7-6.1)
[2020-09-16 08:59] LABS: Basophils # (auto) 0.04 K/uL (0-0.2); Basophils % (auto) 0.3 %; Eosinophils # (auto) 0.13 K/uL (0-0.5); Eosinophils % (auto) 1.1 %; Immature Granulocytes # (auto) 0.23 K/uL (0.00-0.02); Immature Granulocytes % (auto) 1.9 %; Lymphocytes # (auto) 2.19 K/uL (1.2-3.4); Lymphocytes % (auto) 18.4 %; Monocytes % (auto) 5.9 %; Neutrophils # (auto) 8.61 K/uL (1.4-6.5); Neutrophils % (auto) 72.4 %; Polychromasia 1+
[2020-09-16] MEDS ORDERED: INSULIN GLARGINE SOLOSTAR 100 UNITS/ML 3 ML PEN SC SCH (09:00)
[2020-09-16 09:20] LABS: Albumin Globulin Ratio 0.4 (0.9-2); Albumin Level 2.1 gm/dl (3.4-5.0); Bilirubin,Total 0.3 mg/dl (0.2-1); Calcium 8.6 mg/dl (8.5-10.1); Creatinine Clr Calc Pharmacy 28.5 ml/min; Est GFR (African American) 14.4 ml/min; Est GFR (Non-African American) 12.4 ml/min; Globulin 5.9 gm/dl (2.5-4.0)
[2020-09-16] MEDS: INSULIN ASPART 100 UNITS/ML 3 ML PEN SC SCH ×4 (09:39→20:47)
--- NOTE | 2020-09-16 11:20 | Nephrology Progress Note ---
Date of Service September 16, 2020 Assessment & Plan (1) Acute kidney injury: BJ in the setting of sepsis/ATN and bladder outlet obstruction and b/l hydro, resolved after placement of Patten catheter. Non-oliguric with continued renal recovery. Electrolytes acceptable. Patten remains intact. No emergent indication for dialysis. Document I/O's and repeat metabolic profile tomorrow AM. Medications appropriately dosed for kidney function. (2) Sepsis: Sepsis secondary to strep bacteremia and left lower extremity cellulitis. Remains on ampicillin. MRI negative for osteomyelitis. MYKE negative for endocarditis. (3) Cellulitis of left lower extremity: (4) Chronic kidney disease, stage 4 (severe): Secondary to diabetic nephropathy. Baseline creatinine ~3. Repeated episodes of acute kidney injury. Goals of care and potential indications for [employer]IAN reviewed. (5) Hypertension: BP and volume status acceptable. (6) Bacteremia due to Streptococcus: Admission and Anticipated Discharge Date Admission Date: September 05, 2020 Subjective No acute events overnight. Some discomfort with urinary catheter overnight. Otherwise Lex feels well. Review of Systems Review of Systems: All systems reviewed & are unremarkable except as noted in HPI & below Physical Exam Constitutional: well developed and + morbidly obese; no acute distress Eyes: no scleral abnormality and no corneal abnormality ENMT: Mouth: no oral mucosal abnormality and oral mucous membranes not dry Neck: normal visual inspection and trachea midline Respiratory: normal respiratory effort Auscultation: lungs clear to auscultation bilaterally Cardiovascular: Rate/Rhythm: regular rate Heart Sounds: normal S1 and normal S2 Extremities: no edema Musculoskeletal: Extremities: no cyanosis and no clubbing Skin: normal turgor; no lesions Neurologic: Motor/Sensory: no tremor and no asterixis Psychiatric: Orientation: alert and oriented x 3 Results & Data ([facility]) Vital Signs (Past 12 Hours) Vital Signs Temp Pulse Resp BP Pulse Ox 09/16/20 07:37 36.4 C L 81 20 127/81 91 Laboratory Results Laboratory Results - last 24 hr 09/15/20 09/15/20 09/15/20 12:10 17:00 20:30 WBC RBC Hgb Hct MCV MCH MCHC RDW Std Deviation RDW Coeff of Nicky Plt Count MPV Immature Gran % (Auto) Neut % (Auto) Lymph % (Auto) [place] % (Auto) Eos % (Auto) Baso % (Auto) Neut # (Auto) Lymph # (Auto) [place] # (Auto) Eos # (Auto) Baso # (Auto) Immature Gran # (Auto) Polychromasia Sodium Potassium Chloride Carbon Dioxide Anion Gap BUN Creatinine Est Cr Clr Drug Dosing Est GFR ( Amer) Est GFR (Non-Af Amer) BUN/Creatinine Ratio Glucose POC Glucose 136 H 102 H 113 H Calcium Total Bilirubin AST ALT Alkaline Phosphatase Total Protein Albumin Globulin Albumin/Globulin Ratio 09/16/20 09/16/20 09/16/20 08:11 08:13 08:13 WBC 11.90 H RBC 3.34 L Hgb 9.2 L Hct 29.5 L MCV 88.3 MCH 27.5 MCHC 31.2 L RDW Std Deviation 49.8 H RDW Coeff of Nicky 15.7 H Plt Count 387 MPV 11.0 H Immature Gran % (Auto) 1.9 Neut % (Auto) 72.4 Lymph % (Auto) 18.4 [place] % (Auto) 5.9 Eos % (Auto) 1.1 Baso % (Auto) 0.3 Neut # (Auto) 8.61 H Lymph # (Auto) 2.19 [place] # (Auto) 0.70 H Eos # (Auto) 0.13 Baso # (Auto) 0.04 Immature Gran # (Auto) 0.23 H Polychromasia 1+ Sodium 140 Potassium 5.0 Chloride 109 H Carbon Dioxide 25 Anion Gap 6.0 BUN 64 H Creatinine 5.33 H* D Est Cr Clr Drug Dosing 28.5 Est GFR ( Amer) 14.4 Est GFR (Non-Af Amer) 12.4 BUN/Creatinine Ratio 12.0 Glucose 130 H POC Glucose 130 H Calcium 8.6 Total Bilirubin 0.3 AST 18 ALT 36 Alkaline Phosphatase 107 Total Protein 8.0 Albumin 2.1 L Globulin 5.9 H Albumin/Globulin Ratio 0.4 L PG Care Time/CCT Total # of Minutes Spent Total Time Spent with Patient: Total time spent is greater than 50% in coordination of care (as documented) at patient's floor/unit and/or counseling patient: Coding Level of Care Code 04044 Subseq Hosp Care Lvl 3 Diagnoses Acute kidney injury N17.9 Sepsis A41.9 Sepsis acute organ dysfunction status: without acute organ dysfunction Sepsis type: sepsis due to unspecified organism Cellulitis of left lower extremity L03.116 Chronic kidney disease, stage 4 (severe) N18.4 Hypertension I10 Bacteremia due to Streptococcus R78.81; B95.5 (1) Sepsis Sepsis acute organ dysfunction status: without acute organ dysfunction Sepsis type: sepsis due to unspecified organism Qualified Code(s): A41.9 - Sepsis, unspecified organism
[2020-09-16] MEDS: HYDROmorphone INJ 0.5 MG/0.5 ML SYR IV PRN (18:02)
[2020-09-16] MEDS: AMITRIPTYLINE HCL 25 MG TAB PO SCH (20:40)
[2020-09-16] MEDS: TAMSULOSIN HCL 0.4 MG CAP PO SCH (20:42)
[2020-09-17] MEDS: HYDROmorphone INJ 0.5 MG/0.5 ML SYR IV PRN (02:33)
[2020-09-17] MEDS: ACETAMINOPHEN 325 MG TAB PO PRN (02:33)
--- NOTE | 2020-09-17 03:31 | Billing Data ---
Date of Service September 15, 2020 Coding Level of Care Code 22578 Subseq Hosp Care Lvl 2
--- NOTE | 2020-09-17 03:39 | Billing Data ---
Date of Service September 16, 2020 Coding Level of Care Code 70815 Subseq Hosp Care Lvl 1
[2020-09-17] MEDS: AMPICILLIN 2,000 MG in SODIUM CHLOR 0.9% AD-VAN 100 ML IV SCH ×2 (04:58→13:15)
[2020-09-17] MEDS: HEPARIN SOD 5,000 UNIT/0.5 ML VIAL SQ SCH ×2 (05:04→13:12)
[2020-09-17 07:38] LABS: Basophils # (auto) 0.02 K/uL (0-0.2); Basophils % (auto) 0.2 %; Hematocrit (blood only) 29.4 % (42-52); Hemoglobin 9.1 g/dL (14.0-18.0); Immature Granulocytes # (auto) 0.06 K/uL (0.00-0.02); Immature Granulocytes % (auto) 0.6 %; Lymphocytes # (auto) 2.18 K/uL (1.2-3.4); Lymphocytes % (auto) 22.6 %; Mean Corpuscular Hemoglobin 28.2 pg (25-34); Mean Platelet Volume 10.9 fL (7.4-10.4); Monocytes # (auto) 0.49 K/uL (0.11-0.59); Monocytes % (auto) 5.1 %; Neutrophils # (auto) 6.81 K/uL (1.4-6.5); Neutrophils % (auto) 70.5 %; Platelet Count 355 K/uL (130-400); RDW Coefficient of Variation 15.8 % (11.5-14.5); RDW Standard Deviation 51.5 fL (36.4-46.3); Red Blood Count 3.23 M/uL (4.7-6.1); White Blood Count 9.66 K/uL (4.8-10.8)
[2020-09-17 07:46] LABS: Base Excess ABG -1.2 mEq/L (-9-1.8); HCO3 ABG 24 mmol/L (19-24); Oxygen Saturation ABG 92.9 % (90-95); PCO2 ABG 41 mmHg (35-46); PO2 ABG 69 mmHg (80-95); pH ABG 7.39 (7.35-7.45)
[2020-09-17 07:47] LABS: Allen Test Pos (Pos)
[2020-09-17 08:19] LABS: BUN Creatinine Ratio 11.5 (10-20); Calcium 8.5 mg/dl (8.5-10.1); Creatinine Clr Calc Pharmacy 30.4 ml/min; Est GFR (African American) 15.5 ml/min; Est GFR (Non-African American) 13.4 ml/min; Potassium 5.1 mmol/L (3.5-5.1)
--- NOTE | 2020-09-17 08:30 | Pharmacy Report ---
Pharmacy Glycemic Short Note 2 - Date of Service September 17, 2020 - Glycemic Short BSG Results (Last 24 hours): 09/16/20 09/16/20 09/16/20 08:13 12:14 16:54 Glucose 130 H POC Glucose 135 H 137 H 09/16/20 09/17/20 09/17/20 20:45 07:19 08:16 Glucose 150 H POC Glucose 153 H 156 H OUTPATIENT ANTIDIABETIC REGIMEN: * Basaglar (insulin glargine) 54 units SQ BID * NovoLog TIDM (up to 100 units/day) * Ozempic * A1c = 8.2% on 08/04/20 ASSESSMENT: 09/17: * BSGs well-controlled yesterday, 130, 135, 137, and 153 mg/dL * Received 65 units of insulin (25 units of basal and 39 units of prandial/correctional bolus) * Fasting BSG of 156 mg/dL this morning -> will increase basal insulin today * Continues on IV ampicillin for group G beta strep bacteremia 09/15: * Patient received 98 units of insulin yesterday * 40 units of basal * 58 units of bolus * BSGs ranging from 76 - 129 mg/dL * Fasting BSG of 113 mg/dL is AT goal BUT fasting BSGs are trending down so reduce dose by half as all BSGs yesterday were below 130 mg/dL. Concern for accumulation. * Post prandial BSGs are trending downwards. Loosen Novolog. 09/14: * Patient received 75 units of insulin yesterday * 30 units of basal * 45 units of bolus * BSGs ranging from 112 - 159 mg/dL * Fasting BSG of 129 mg/dL is near goal. He has received an average of 35 units of Lantus per day over the past five days. I will change to this dose. * Post prandial BSGs are acceptable. No change to Novolog. PLAN FOR INPATIENT GLYCEMIC CONTROL: * Basal insulin - increase * Lantus 30 units daily * Bolus insulin - continue * NovoLog per scale ACHS or Q6hrs while NPO * Goal Range: Low 110 mg/dL - High 140 mg/dL * Correction Factor: 12 mg/dL/unit * Nutritional / Prandial insulin per carb ratio of 1 unit per 5 grams CHO consumed PLAN FOR DISCHARGE: * A1c 8.2% - goal for patient <7% * Plan of care will depend on if there is improvement in renal function or if dialysis is started. Will continue to follow trends to determine insulin needs.
[2020-09-17] MEDS ORDERED: INSULIN GLARGINE SOLOSTAR 100 UNITS/ML 3 ML PEN SC SCH (09:00)
--- NOTE | 2020-09-17 09:32 | Med Student Discharge Summary ---
Date of Service September 17, 2020 Admission HPI Per Admitting Provider 40 YOM with past medical history of obesity, uncontrolled diabetes, frequent cellulitis of lower extremities, HLD, CKD, III, UNIQUE. Patient was recently discharged on for group G streptococcus cellulitis of the left foot requiring a sting in the ICU. The patient was treated with Zosyn and transitioned to Rocephin 2 GM IV for discharge and completed a 14 day course of IV Rocephin at home with his negative blood cultures. Patient comes in to the ER today complaining of nausea, fevers, and generalized malaise. He was noted to have a WBC count 24.88 and elevated lactate at 5.7. He was given Cefepime and Daptomycin in the ER, volume resuscitated with 2.5 Liters of crystalloid. He continues to be tachycardic in the 120s but is coming down following treatment. Patient will be admitted to PCU follow up his laccate levels and hemodynamic response to IV antibiotic treatment. He is mentating well and and no other evidence of organ dysfunction. Admission Exam (Per Admitting) Constitutional WD/WN, vitals as above well developed, well nourished, + ill appearing, + morbidly obese and comfortable; no acute distress and not in distress Eyes PERRL, conjunctivae normal, anicteric sclerae no scleral abnormality and no corneal abnormality ENMT external ear and nose normal, oropharynx normal Mouth: no oral mucosal abnormality, oral mucous membranes not dry and no dent ition abnormality Mallampati Class: III Neck trachea midline, no thyromegaly normal visual inspection and trachea midline Respiratory normal respiratory effort, lungs clear to auscultation normal respiratory effort and able to speak in complete sentences; no respiratory distress and no labored breathing Auscultation: lungs clear to auscultation bilaterally, + diminished lung sounds, + rales and + wheezes Cardiovascular RRR, no murmur, no edema Rate/Rhythm: regular rate, regular rhythm and + tachycardic Heart Sounds: normal S1 and normal S2 Extremities: normal capillary refill and + pedal edema; no edema Gastrointestinal (Abdomen) normal bowel sounds, soft, nontender, no hepatosplenomegaly Inspection/Auscultation: abdomen normal to inspection, + abdomen distended and + significant pannus Percussion/Palpation: abdomen soft; abdomen nontender and no guarding Musculoskeletal Head/Neck/Chest: normocephalic and head atraumatic Extremities: no cyanosis and no clubbing Skin normal turgor, + rash and + erythema ( Left lower extremity); no lesions Neurologic moves all extremities and awake; no focal motor deficits and not confused Speech / Cognition: normal speech Motor/Sensory: no tremor and no asterixis Psychiatric A+Ox3, euthymic affect Orientation: alert, oriented x 3 and cooperative Genitourinary no CVA tenderness Discharge Data Consultations 09/05/20 15:46 ED Decision to Admit Stat 09/05/20 20:13 Consult Podiatry Routine 09/06/20 16:35 Consult Infectious Diseases Routine 09/07/20 14:38 Consult Nephrology Routine 09/09/20 07:00 Consult Anesthesiology Routine 09/10/20 11:05 Consult Urology Routine Procedures Performed Operation Date: 09/10/20 10:45 Actual Procedures p Echo Transesophageal - Dionisio Santana MD s Echo Doppler Complete - Dionisio Santana MD s Echo Color Flow - Dionisio Santana MD Hospital Course (1) Cellulitis: Sepsis, bacteremia, cellulitis On admission, patient was started on empiric IV antibiotics. MRI and CT of the left foot showed tracking forefoot soft tissue edema without osteomyelitis. Blood culture grew pansensitive group G strep, and antibiotic therapy was narrowed to ampicillin IV. Blood culture results including sensitivities were identical to those from his episode of cellulitis one month prior, and patient admitted he had not finished the course of antibiotics prescribed upon discharge at that time. TTE and MYKE were without evidence of vegetation. Patient demonstrated clinical improvement, and was discharged on hospital day twelve in stable condition with home health arrangements made for patient to complete an extended course of ampicillin IV therapy, set to end on 10/07/2020. PCP follow-up was recommended. BJ, CKD IV Patient's creatinine was elevated to 4.83 on admission, beyond his baseline value of ~3.0. Patient's home lisinopril was held, and medications were renally dosed. Nephrology was consulted, and patient's elevated creatinine was felt to be secondary to BJ vs ATN secondary to bacteremia. On hospital day four, patient was found with bilateral hydronephrosis, prompting preston catheter placement and urology consult. Renal ultrasound performed on hospital day five was unremarkable. Patient's creatinine peaked on hospital day six at 6.78. This improved gradually, and upon patient's discharge on hospital day twelve, creatinine was 5.0. Patient was advised that DAIRY CHEMIST may be indicated if renal function worsens. Urology recommended the preston catheter remain in place until a voiding trial is performed, which will be performed on an outpatient basis after discharge. Urology will follow up with patient regarding voiding trial appointment details. Patient's lisinopril was not restarted upon discharge. Patient was discharged with instructions for follow-up labs to be performed one week after discharge, with arrangements made for follow up with Dr. Fonseca of nephrology two weeks after discharge. HFrEF Patient developed an oxygen requirement on hospital day two, and was noted with a positive net fluid balance, elevated BNP, TTE showing low-normal systolic function, nocturnal oxygen desaturations, and CXR showing new pulmonary edema, which was felt to represent chronic HFrEF with fluid accumulation exacerbated by worsening renal function. CT abdomen/pelvis demonstrated findings suggestive of fluid overload including pleural effusions and alveolar pulmonary edema. Diuresis resulted in resolution of pulmonary findings and edema. T Left foot ulcer Patient was noted with a left foot ulcer on admission, in the setting of uncontrolled DM2. Patient's ulcer was managed by wound care and podiatry during his stay. MRI was without evidence of osteomyelitis. Patient's lyrica was continued during his stay. Patient's ulcer demonstrated improvement during his hospitalization. Close PCP follow-up was recommended. Uncontrolled T2DM Patient's home DM2 regimen was held on admission. BSG was controlled with sliding-scale insulin. HbA1c was 8.2%. Patient's home regimen was restarted upon discharge. UNIQUE Patient's history of UNIQUE as well as his CPAP non-adherence was noted on admission. Nocturnal oximetry performed prior to discharge showed desaturations as low as 22 in addition to frequent apneic episodes, up to 90 per hour. Patient was counseled on the importance of CPAP and finding a mask that he finds tolerable. Close PCP follow-up was recommended. HTN Patient's home lisinopril was held on admission due to BJ. Patient's home amlodipine and carvedilol were continued. BP during hospitalization ranged from normotensive to elevated to the 150s/90s. No new antihypertensives were initiated. Patient's lisinopril was not restarted upon discharge. HLD Patient's home hyperlipidemia regimen was continued during his hospitalization. Depression Patient's home bupropion was continued during his hospitalization. Elevated troponin Patient was noted with a troponin of 0.084 on admission. Repeat troponin showed improvement, and elevated troponin was felt to be secondary to demand ischemia. Treatment beyond those noted above was not felt indicated. Discharge Plan Discharge Items Patient Disposition: Home - Self-Care Reason For Visit: SEPSIS Discharge Diagnosis: Bacteremia, cellulitis Condition on Discharge: Serious Activity: Resume your previous activity Non-emergency contact: Primary Care Provider Call non-emergency contact if: you have any medication questions and your symptoms worsen Follow-up/Referrals: Lanny Guerrier [Primary Care Provider] - (please call to make appointment within 1-2 weeks) Diet: Carb Consistent or DM2 Addtl Attending Provider Instructions: You were admitted to the hospital for cellulitis. You were treated with IV antibiotics. You will need to continue IV antibiotic therapy for about _ more days. We have arranged for you to be able to continue this from home. A discharge summary will be sent to your primary care physician to ensure continuity of care. Please bring this discharge summary with you to your next office appointment so that your provider can review it at that time. Follow-up appointments: Make a follow-up appointment with your PCP within the next week. It is very important that you follow up with them shortly after discharge from the hospital. Urology will set up a voiding trial to be performed as soon as they can make an appointment to do so. This is necessary before the urinary catheter can be safely removed. They will contact you with the date and time of the appointment. If you do not hear from them by Thursday, please call their office at [phone]. Keep all your follow-up appointments as already scheduled. If you cannot make an appointment, notify your provider. Medications: Your medication list has been reviewed and reconciled upon discharge to ensure accuracy and continuity of care. An updated list of all your medications is included with your hospital discharge paperwork. Please review this list closely, and make note of any changes. * We have arranged for home health to supply and administer your IV antibiotic, which is called ampicillin. Home health will supply this medicine, and will teach you how to use it. They will be coming to your home on September 18 around 8am. You will continue to administer ampicillin via IV every eight hours until October 07. Further details will be provided by [facility] when they come tomorrow. * For pain associated with the urinary catheter, you can take acetaminophen (Tylenol) 650mg every 4-6 hours as needed. Acetaminophen can be purchased over the counter at any pharmacy or general store. Do not exceed 4,000mg in a 24- hour period. * We discontinued your lisinopril due to concerns regarding your kidney function. Do not take lisinopril until you discuss this with your primary care physician. Take your medications as instructed; do not skip a dose of your medicines. Make sure all of your doctors know every medicine you are taking (including oqws-acj-vcyfsif medicines, vitamins, and supplements). Call your primary care provider before taking any new medicines (including hcuo-kdw-eytowvn medicines, vitamins, and supplements), because some of these may interact with your current medications, or may make your symptoms worse. Tell your primary care provider if you cannot afford your medications. CONTACT YOUR PRIMARY CARE PROVIDER if you experience any of the following: Fever, chills, sweats New or worsening rash Difficulty following your treatment plan, or difficulty taking medications CALL 911 OR GO TO THE EMERGENCY DEPARTMENT if you experience any of the following: Sudden, severe abdominal pain or nausea/vomiting Severe chest pain, or chest pain that radiates (moves) to your jaw or arm Sudden, severe shortness of breath or difficulty breathing Thank you for allowing us to participate in your care. Pending Studies at Discharge: No Stand-Alone Forms: My [facility] Medications and DC Order Prescriptions: Continued alprazolam 1 mg tablet 1 mg PO DAILY PRN (Reason: Anxiety) RF: 0 bupropion HCl [Wellbutrin SR] 150 mg tablet sustained-release 12 hr 150 mg PO QAM RF: 0 Basaglar KwikPen U-100 Insulin 100 unit/mL (3 mL) insulin pen 54 unit SQ BID RF: 0 Ozempic 0.25 mg or 0.5 mg(2 mg/1.5 mL) pen injector 0.5 mg subcut .weekly RF: 0 pregabalin [Lyrica] 100 mg capsule 100 mg PO BID RF: 0 atorvastatin 80 mg tablet 80 mg PO QAM RF: 0 amlodipine 10 mg tablet 10 mg PO QAM RF: 0 multivitamin Tablet 1 tab PO QAM RF: 0 amitriptyline 25 mg tablet 25 mg PO HS RF: 0 insulin aspart U-100 [Novolog Flexpen U-100 Insulin] 100 unit/mL (3 mL) insulin pen 0 unit subcut TIDM RF: 0 icosapent ethyl [Vascepa] 1 gram capsule 2 g PO BID RF: 0 tamsulosin 0.4 mg Capsule 0.4 mg PO HS Qty: 30 RF: 0 carvedilol 25 mg Tablet 25 mg PO BID Qty: 60 RF: 0 calcium acetate(phosphat bind) 667 mg Capsule 667 mg PO TIDM Qty: 90 RF: 0 acetaminophen [Tylenol 8 Hour] 650 mg tablet extended release 650 mg PO Q8H PRN (Reason: fever or pain) Qty: 60 RF: 0 Discontinued lisinopril 20 mg tablet 20 mg PO DAILY Qty: 90 RF: 3 ceftriaxone 2 gram recon soln 2 g IV DAILY Qty: 5 RF: 0 Discharge Orders: Discharge Order (Routine); Ordered 09/17/20 Ordered By: Ankush Joe/Other Patient Handouts: Discharge Instructions for Cellulitis, ED Diet for Chronic Kidney Disease Admission Data Admit Date/Time: 09/05/20 17:46 Attending Provider: Paul Griffin Admit Provider: Toan Mata Primary Care Provider: Lanny Guerrier Other Providers: Maria Luisa Denney ; Cari Blunt ; Eleuterio Puri ; Rafael Le ; Dulce Vega ; Boris Elena I. ; Demond Tee II ; Amparo Navas ; Jamison Sarmiento ; Steven Hicks ; Maryanne Durham ; Jc Montalvo ; Tonio Sams ; Paul Rico ; Sonya Hernandez ; Steven Sousa ; Thi Avalos ; Thalia Walter ; Karen Lin ; Breezy Bradley ; Vanna Jorge ; Marylin Lin ; [facility] Other Interventions: Discharge Summary Assessment (RN) Last Done: 09/17/20 16:29 Supervising Attestation Attending attestation Pt seen and examined in concert with [facility]. Dr. June Suresh. In agreement with the documented findings as noted in the resident documentation with any exceptions or additions as noted here. Continued improvement of LLE cellulitis in intensity and diameter. Irritation of the penis 2/[address] but understands need for persistence and follow up. On examination, S1/S2 nl RRR no MCG. CTAB. Abd NT/ND BS+ve. Sepsis 2/2 group G strep bacteremia w/ LLE cellulitis - complete prolonged course of abx per ID recommendation 2/2 previous failure, venous insufficiency. BJ on CKD IV in the setting of bilateral hydronephrosis - nephrology, urology consult - downtrending Cr should be carefully monitored on discharge. Urology trial of void post discharge with precautions re: decreased output UNIQUE, severe - STRONGLY encourage CPAP use, consider nasal pillow/nasal mask 2/2 claustrophobia Else see student/resident documentation as noted. Discharge Exam GENERAL: nad HEENT: conjunctiva without injection b/l, external nose and pinna are normal CHEST: cta bilaterally with no wheezes, rhonchi or rales, normal respiratory effort CARDIOVASCULAR: heart regular rate and rhythm, no murmurs, gallops or rubs, non- pitting lower extremity edema ABD: nontender to palpation, soft, non-distended, normal active bowel sounds SKIN: Erythema of L lower calf below line of demarcation, no other rashes or suspicious lesions noted NEURO: SALINA Resident Activity Tracking Resident Involvement: Resident Care Provided Care Provided: Adult Hospital Medicine
[2020-09-17] MEDS: OMEGA-3 (PURIFIED FISH OIL) 1 GM CAP PO SCH (09:48)
[2020-09-17] MEDS: amLODIPine BESYLATE 5 MG TAB PO SCH (09:48)
[2020-09-17] MEDS: CALCIUM ACETATE 667 MG CAP/TAB PO SCH ×2 (09:48→13:12)
[2020-09-17] MEDS: ATORVASTATIN 40 MG TAB PO SCH (09:48)
[2020-09-17] MEDS: buPROPion SR 150 MG TABCR PO SCH (09:49)
[2020-09-17] MEDS: carvediloL 25 MG TAB PO SCH (09:49)
[2020-09-17] MEDS: INSULIN ASPART 100 UNITS/ML 3 ML PEN SC SCH ×2 (09:55→13:11)
[2020-09-17] MEDS: PREGABALIN 75 MG CAP PO SCH (09:56)
[2020-09-17] MEDS: POLYETHYLENE (MIRALAX) 17 GM PACK PO SCH (09:56)
--- NOTE | 2020-09-17 10:18 | Nephrology Progress Note ---
Date of Service September 17, 2020 Assessment & Plan (1) Acute kidney injury: BJ in the setting of sepsis/ATN with bladder outlet obstruction, resolved after placement of Patten catheter. Non-oliguric with continued renal recovery. Electrolytes acceptable. Patten remains intact pending urology follow up. No emergent indication for dialysis. Medications appropriately dosed for kidney function. Please arrange labs within 1 week of discharge and follow up with Dr. Fonseca in the clinic within the next 2 weeks. (2) Sepsis: Sepsis secondary to strep bacteremia and left lower extremity cellulitis. Remains on ampicillin to continue home therapy through US guided IV post discharge. MRI negative for osteomyelitis. MYKE negative for endocarditis. (3) Cellulitis of left lower extremity: (4) Chronic kidney disease, stage 4 (severe): Secondary to diabetic nephropathy. Baseline creatinine ~3. Repeated episodes of acute kidney injury. Goals of care and potential indications for TRAINING DEVELOPER reviewed. (5) Hypertension: BP and volume status acceptable. (6) Bacteremia due to Streptococcus: Admission and Anticipated Discharge Date Admission Date: September 05, 2020 Subjective No acute events overnight. Lex was seen and evaluated with Dr. Griffin this AM. Lex feels reasonably well this AM. He does report some mild persistent discomfort from the Patten catheter. Review of Systems Review of Systems: All systems reviewed & are unremarkable except as noted in HPI & below Physical Exam Constitutional: well developed and + morbidly obese; no acute distress Eyes: no scleral abnormality and no corneal abnormality ENMT: Mouth: no oral mucosal abnormality and oral mucous membranes not dry Neck: normal visual inspection and trachea midline Respiratory: normal respiratory effort Auscultation: lungs clear to auscultation bilaterally Cardiovascular: Rate/Rhythm: regular rate Heart Sounds: normal S1 and normal S2 Extremities: no edema Musculoskeletal: Extremities: no cyanosis and no clubbing Skin: normal turgor; no lesions Neurologic: Motor/Sensory: no tremor and no asterixis Psychiatric: Orientation: alert and oriented x 3 Results & Data ([facility]) Vital Signs (Past 12 Hours) Vital Signs Temp Pulse Pulse Pulse Resp BP Pulse Ox 09/17/20 07:48 36.4 C L 66 18 133/82 99 09/17/20 02:03 83 79 09/16/20 23:40 83 09/16/20 23:35 36.6 C 84 18 144/84 H 95 Pulse Ox Pulse Ox 09/17/20 07:48 07/12/21 02:03 87 L 92 09/16/20 23:40 95 09/16/20 23:35 Laboratory Results Laboratory Results - last 24 hr 09/16/20 09/16/20 09/16/20 12:14 16:54 20:45 WBC RBC Hgb Hct MCV MCH MCHC RDW Std Deviation RDW Coeff of Nicky Plt Count MPV Immature Gran % (Auto) Neut % (Auto) Lymph % (Auto) Logan % (Auto) Eos % (Auto) Baso % (Auto) Neut # (Auto) Lymph # (Auto) Logan # (Auto) Eos # (Auto) Baso # (Auto) Immature Gran # (Auto) ABG pH ABG pCO2 ABG pO2 ABG HCO3 ABG O2 Saturation ABG Base Excess Ambrocio Test Barometric Pressure Oxygen Given Sodium Potassium Chloride Carbon Dioxide Anion Gap BUN Creatinine Est Cr Clr Drug Dosing Est GFR ( Amer) Est GFR (Non-Af Amer) BUN/Creatinine Ratio Glucose POC Glucose 135 H 137 H 153 H Calcium 09/17/20 09/17/20 09/17/20 07:19 07:19 07:29 WBC 9.66 RBC 3.23 L Hgb 9.1 L Hct 29.4 L MCV 91.0 MCH 28.2 MCHC 31.0 L RDW Std Deviation 51.5 H RDW Coeff of Nicky 15.8 H Plt Count 355 MPV 10.9 H Immature Gran % (Auto) 0.6 Neut % (Auto) 70.5 Lymph % (Auto) 22.6 Logan % (Auto) 5.1 Eos % (Auto) 1.0 Baso % (Auto) 0.2 Neut # (Auto) 6.81 H Lymph # (Auto) 2.18 Logan # (Auto) 0.49 Eos # (Auto) 0.10 Baso # (Auto) 0.02 Immature Gran # (Auto) 0.06 H ABG pH 7.39 ABG pCO2 41 ABG pO2 69 L ABG HCO3 24 ABG O2 Saturation 92.9 ABG Base Excess -1.2 Ambrocio Test Pos Barometric Pressure 734.1 Oxygen Given 1 L Sodium 140 Potassium 5.1 Chloride 109 H Carbon Dioxide 25 Anion Gap 5.0 BUN 58 H Creatinine 5.00 H* D Est Cr Clr Drug Dosing 30.4 Est GFR ( Amer) 15.5 Est GFR (Non-Af Amer) 13.4 BUN/Creatinine Ratio 11.5 Glucose 150 H POC Glucose Calcium 8.5 09/17/20 08:16 WBC RBC Hgb Hct MCV MCH MCHC RDW Std Deviation RDW Coeff of Nicky Plt Count MPV Immature Gran % (Auto) Neut % (Auto) Lymph % (Auto) Logan % (Auto) Eos % (Auto) Baso % (Auto) Neut # (Auto) Lymph # (Auto) Logan # (Auto) Eos # (Auto) Baso # (Auto) Immature Gran # (Auto) ABG pH ABG pCO2 ABG pO2 ABG HCO3 ABG O2 Saturation ABG Base Excess Ambrocio Test Barometric Pressure Oxygen Given Sodium Potassium Chloride Carbon Dioxide Anion Gap BUN Creatinine Est Cr Clr Drug Dosing Est GFR ( Amer) Est GFR (Non-Af Amer) BUN/Creatinine Ratio Glucose POC Glucose 156 H Calcium PG Care Time/CCT Total # of Minutes Spent Total Time Spent with Patient: Total time spent is greater than 50% in coordination of care (as documented) at patient's floor/unit and/or counseling patient: Coding Level of Care Code 17113 Subseq Hosp Care Lvl 3 Diagnoses Acute kidney injury N17.9 Sepsis A41.9 Sepsis acute organ dysfunction status: without acute organ dysfunction Sepsis type: sepsis due to unspecified organism Cellulitis of left lower extremity L03.116 Chronic kidney disease, stage 4 (severe) N18.4 Hypertension I10 Bacteremia due to Streptococcus R78.81; B95.5 (1) Sepsis Sepsis acute organ dysfunction status: without acute organ dysfunction Sepsis type: sepsis due to unspecified organism Qualified Code(s): A41.9 - Sepsis, unspecified organism
== END 2020-09-17 18:27 | disposition home health service (06) | DRG 853 ==
LOC: ED 14:39 → SUATTDRO 17:46 → 2S 17:46 → 3N 09-13 17:48